=== PATIENT | male | born 1960 | race Caucasian/White ===

== ENCOUNTER 2021-10-15 21:13 | Observation (INO) | payer MEDICARE, MEDICAID, SELFPAY ==
[2021-10-15] VITALS (8 sets, daily range): BP systolic 115–135; BP diastolic 75–86; PULSE 62–69; RESP 13–28; TEMP 36.7; O2SAT 94–98; BMI 26.4; BMI 27.6
--- NOTE | 2021-10-15 21:11 | ECG_ITS ---
APPROVED REPORT Exam: Resting ECG HR:69 bpm ECG Measurements Heart Rate 69 AXES DC 147 P 21 QRSd 137 QRS -49 QT 411 T -56 QTc 430 Conclusion SINUS RHYTHM RIGHT BUNDLE BRANCH BLOCK [120+ ms QRS DURATION, UPRIGHT V1, 40+ ms S IN I/aVL/V4/V5/V6] LEFT ANTERIOR FASCICULAR BLOCK [QRS AXIS <= -45, QR IN I, RS IN II] MODERATE VOLTAGE CRITERIA FOR LVH, CONSIDER NORMAL VARIANT [MEETS CRITERIA IN ONE OF: R(aVL), S(V1), R(V5), R(V5/V6)+S(V1)] MODERATE T-WAVE ABNORMALITY, CONSIDER LATERAL ISCHEMIA [-0.1+ mV T-WAVE IN I/aVL/V5/V6] MODERATE T-WAVE ABNORMALITY, CONSIDER INFERIOR ISCHEMIA [-0.1+ mV T-WAVE IN II/aVF] ABNORMAL ECG UNCONFIRMED REPORT Electronically signed by : Ever Romero MD 10/18/2021 15:28:45
--- NOTE | 2021-10-15 21:20 | XR_ITS ---
PROCEDURE INFORMATION: Exam: XR Chest Exam date and time: 10/15/2021 9:39 PM Age: 61 years old Clinical indication: Sternal or substernal pain; Additional info: Chest pain TECHNIQUE: Imaging protocol: Radiologic exam of the chest. Views: 1 view. COMPARISON: No relevant prior studies available. FINDINGS: Lungs: Unremarkable. No consolidation. Pleural spaces: Unremarkable. No pleural effusion. No pneumothorax. Heart/Mediastinum: Unremarkable. No cardiomegaly. Bones/joints: Unremarkable. IMPRESSION: No acute findings.
--- NOTE | 2021-10-15 21:22 | PC.NURSE ---
Pt complains of pain. RN notified.
--- NOTE | 2021-10-15 21:27 | PC.NURSE ---
RAD at for CXR
[2021-10-15 21:28] LABS: Basophils # 0.1 K/mm3 (0-0.2); Basophils % 1.1 % (0.1-2.0); Eosinophils # 0.3 K/mm3 (0.0-0.4); Eosinophils % 2.4 % (0.1-12.0); Hematocrit 40.6 % (42.0-52.0); Hemoglobin 13.4 g/dL (14.1-18.0); Lymphocytes # 4.1 K/mm3 (0.7-4.5); Lymphocytes % 37.4 % (10-50); Mean Corpuscular Hemoglobin 31.8 pg (27.0-31.2); Mean Corpuscular Volume 96.1 fl (80-94); Mean Platelet Volume 8.8 fl (7.4-10.4); Monocytes # 0.6 K/mm3 (0.1-1.0); Monocytes % 5.5 % (1.7-9.3); Neutrophils # 5.8 K/mm3 (1.8-7.8); Neutrophils % 53.6 % (37.0-80.0); Platelet Count 197 K/mm3 (142-424); Red Blood Count 4.22 M/mm3 (4.60-6.20); White Blood Count 10.8 K/mm3 (4.8-10.8)
[2021-10-15 21:41] LABS: Alanine Aminotransferase 51 U/L (12-78); Albumin Level 3.9 g/dl (3.5-5.0); Alkaline Phosphatase 127 U/L (38-126); Anion Gap 11.4 mEq/L (5-15); Aspartate Amino Transferase 45 U/L (17-59); Blood Urea Nitrogen 15 mg/dl (9-20); Calcium 8.6 mg/dl (8.4-10.2); Carbon Dioxide 28 mmol/L (22.0-30.0); Chloride 105 mmol/L (98-107); Creatinine Clearance Estimated 95 mL/min (50-200); Estimated Glomerular Filt Rate 114 ml/min (>60); GFR (African American) 138 ML/MIN (>60); Glucose 180 mg/dl (74-100); Potassium 3.4 mmoL/L (3.5-5.1); Sodium 141 mmol/L (136-145); Total Protein,Serum 6.3 g/dl (6.3-8.2)
--- NOTE | 2021-10-15 21:45 | PC.NURSE ---
at speaking with pt about POC
--- NOTE | 2021-10-15 21:49 | HMH.EDARPALP ---
Discharge Plan Disposition Chief Complaint: Arrhythmia/Palpitations Referrals Follow up/Referrals: Mila Lange [Primary Care Provider] - See instructions Clinical Impressions Clinical Impression: Chest pain due to coronary artery disease, RBBB (right bundle branch block with left anterior fascicular block), Tobacco use Discharge ED Provider: Gerardo Mejia Arrhythmia/Palpitations HPI General Chief Complaint: Arrhythmia/Palpitations Stated Complaint: Rapid heart beat Time Seen by Provider: 10/15/21 21:49 Mode of Arrival: Wheelchair Source of Information: Patient, Significant Other and Medical Record Limitations: No Limitations History of Present Illness HPI narrative: pt presents with ant chest pain last pm and today with hx of cad with stents in august 28 and reports has been admitted x 3 since in [place] - pt has been compliant with meds - does use tob - reports has arrhythmia MD complaint: palpitations Onset (ago): day(s) Duration: intermittent Severity: similar to previous episodes Context: occurred during rest Associated symptoms: chest pain Related Data Allergies Allergy/AdvReac Type Severity Reaction Status Date / Time No Known Allergies Allergy Unverified 01/25/17 15:25 PFSH PFSH Social History Smoking Status: Current every day smoker alcohol intake: never current occupational status: previously employed Travel in the last 8 weeks: None ROS Obtained: Yes All systems reviewed & no additional complaints except as documented Constitutional Constitutional: Denies fever(s) and Denies headache(s) Eyes Eyes: Denies eye discharge ENT Ears, Nose, Mouth, and Throat: Denies facial pain and Denies headache(s) Cardiovascular Cardiovascular: Reports chest pain and Reports dyspnea Respiratory Respiratory: Denies cough and Reports dyspnea Musculoskeletal Musculoskeletal: Denies back pain Neurologic Neurologic: Denies behavioral changes and Denies headache(s) Physical Exam General General appearance: alert Head Head exam: normocephalic Eye Eye exam: Present PERRL and EOMI; Absent scleral icterus ENT ENT exam: Present mucous membranes moist Neck Neck exam: Present trachea midline Chest Chest inspection: Absent tenderness Respiratory Respiratory exam: Present normal lung sounds bilaterally Cardiovascular Cardiovascular exam: Present regular rate and systolic murmur; Absent rubs Abdominal Exam Abdominal exam: Present soft Extremities Exam Extremities exam: Absent full ROM Neurological Exam Neurological exam: Present alert, oriented X3 and CN II-XII intact Psychiatric Psychiatric exam: Present normal affect Skin Skin exam: Absent rash Medical Decision Making Medical Records Medical records reviewed: Yes I reviewed the patient's medical records. Moshe Inquiry Pt receiving controlled substance: No Vital Signs: 10/15/21 21:13 10/15/21 21:45 10/15/21 22:15 Temperature 98.1 F Temperature Source Oral Pulse Rate 69 64 Pulse Rate [Right Radial] 68 Respiratory Rate 16 17 Blood Pressure 115/75 120/78 Blood Pressure [Right Arm] 134/86 Blood Pressure Mean [Right Arm] 102 Blood Pressure Source Automatic Cuff Automatic Cuff Blood Pressure Source [Right Arm] Automatic Cuff Blood Pressure Position Sitting Sitting Blood Pressure Position [Right Arm] Sitting 02 Sat by Pulse Oximetry 98 96 96 Oxygen Delivery Method Room Air Room Air Room Air 10/15/21 22:45 Temperature Temperature Source Pulse Rate 62 Pulse Rate [Right Radial] Respiratory Rate Blood Pressure 135/81 Blood Pressure [Right Arm] Blood Pressure Mean [Right Arm] Blood Pressure Source Automatic Cuff Blood Pressure Source [Right Arm] Blood Pressure Position Sitting Blood Pressure Position [Right Arm] 02 Sat by Pulse Oximetry 95 Oxygen Delivery Method Room Air Lab Data Lab results reviewed: Yes I reviewed the patient's lab results. Lab Results 10/15/21 21:17: WBC 10.8, RBC 4.22 L, Hgb 13.4 L,
[2021-10-15 21:53] LABS: Bilirubin,Total < 0.1 mg/dl (0.2-1.3)
[2021-10-15 21:54] LABS: Troponin I < 0.01 ng/ml (0.00-0.034)
--- NOTE | 2021-10-15 22:04 | CT_ITS ---
PROCEDURE INFORMATION: Exam: CTA Chest With Contrast Exam date and time: 10/15/2021 10:07 PM Age: 61 years old Clinical indication: Sternal or substernal pain; Prior surgery; Additional info: Chest pain TECHNIQUE: Imaging protocol: Computed tomographic angiography of the chest with contrast. 3D rendering (Not supervised by radiologist): MIP and/or 3D reconstructed images were created by the technologist. Radiation optimization: All CT scans at this facility use at least one of these dose optimization techniques: automated exposure control; mA and/or kV adjustment per patient size (includes targeted exams where dose is matched to clinical indication); or iterative reconstruction. Contrast material: ISOVUE; Contrast volume: 70 ml; Contrast route: INTRAVENOUS (IV); COMPARISON: CR XR CHEST PORTABLE 10/15/2021 9:39 PM FINDINGS: Tubes, catheters and devices: Incompletely visualized spinal stimulator device. Pulmonary arteries: Limited study due to respiratory motion artifact without definite evidence of pulmonary embolism. Aorta: No aortic aneurysm. Lungs: Nonspecific bibasilar opacities, favoring atelectasis or pneumonia. Several scattered areas of probable pulmonary scarring or atelectasis. 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 Several calcified pulmonary granulomas. Pleural spaces: No pneumothorax. No pleural effusion. Heart: Cardiomegaly. Coronary artery disease. No pericardial effusion. Lymph nodes: No enlarged lymph nodes. Adrenal glands: Bilateral adrenal nodularities. 0.8 cm right adrenal probable myelolipoma. Bones/joints: No acute fracture. Soft tissues: Small probable sebaceous cyst in the posterior chest wall. IMPRESSION: 1. Limited study due to respiratory motion artifact without definite evidence of pulmonary embolism. 2. Nonspecific bibasilar opacities, favoring atelectasis or pneumonia. Recommend imaging follow-up until complete resolution. 3. 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 Recommend pulmonary consult. 4. Cardiomegaly. 5. Coronary artery disease. COMMENTS: Consistent with the [employer]'s Incidental Findings Committee white paper (J Am Silverio Radiol 2017): Any incidental adrenal lesion less than 1 cm is likely benign. No follow-up imaging is recommended for these lesions per consensus recommendations based on imaging criteria. Further lab evaluation could be pursued if warranted based on clinical findings.
--- NOTE | 2021-10-15 22:10 | PC.NURSE ---
Spoke with Moriah at [facility] to have records faxed from recent admission
--- NOTE | 2021-10-15 22:41 | PC.NURSE ---
Dr. Botello pagejett
--- NOTE | 2021-10-15 22:44 | PC.NURSE ---
Jackie speaking to Rosmery at this time
--- NOTE | 2021-10-15 23:08 | PC.NURSE ---
Spoke with Moriah at [facility] again. Advised she would try to fax the records again.
[2021-10-15 23:14] LABS: NT Pro Brain Natriuretic Pep. 316 pg/mL (0-125)
--- NOTE | 2021-10-15 23:44 | PC.NURSE ---
Received pt records from [facility]
[2021-10-15 23:57] LABS: Coronavirus 19, PCR Not Detected (NotDetected); Influenza A, PCR Not Detected (NotDetected); Influenza B, PCR Not Detected (NotDetected)
[2021-10-16] VITALS (23 sets, daily range): BP systolic 102–138; BP diastolic 50–88; PULSE 50–68; RESP 14–20; TEMP 36.6–36.7; O2SAT 91–97; BMI 27.6
--- NOTE | 2021-10-16 | IR_ITS ---
APPROVED REPORT Patient Location: Inpatient PROCEDURES Left heart catheterization Left ventriculogram Selective coronary angiogram Drug-eluting stent deployment to the ostial proximal dominant right coronary INDICATION Coronary artery disease, Unstable angina Informed consent was obtained prior to the procedure. COMPLICATIONS none Estimated Blood Loss: less than 10 ml TECHNIQUE One percent lidocaine used to anesthetize the right anterior aspect of the wrist. The right radial artery was accessed via the Seldinger technique. A 6 Tajik sheath was placed in the right radial artery. 2.5 mg of verapamil, 800 mcg of nitroglycerin, 1mg Lidocaine and 5000 U Heparin were given through the arterial sheath. The papa catheter was also used to perform left heart catheterization, left ventriculogram and selective coronary angiogram. At the end of the diagnostic angiogram therapeutic heparin was administered giving a therapeutic ACT and the guide catheter was placed in the right coronary artery followed by a Choice PT extra-support wire. A 4 mm x 18 mm resolute Bayron stent was placed in the ostial proximal segment at 28 edna reducing the stenosis to 0%. VANESSA-3 flow was present before and after the procedure at the end the procedure the apparatus was removed the sheath was removed and hemostasis was achieved using TR banding patient was transferred to the postop putting in stable condition ANGIOGRAPHIC RESULTS The left main artery Normal The left anterior descending artery Has proximal 10 to 20% luminal irregularities with mid vessel 10% luminal irregularities followed by additional 30% stenoses. The distal LAD has an eccentric 70% stenosis in a very distal 60% stenosis. The stent in the proximal LAD is widely patent. The second diagonal artery has a mid vessel 90% stenosis however is less than 1.5 mm in diameter The circumflex artery Is a nondominant vessel and gives rise to 2 obtuse marginal arteries. First obtuse marginal artery has proximal 40% stenoses while the second obtuse marginal artery which is smaller has a proximal 40 to 50% stenosis. The right coronary artery Is a dominant vessel and has an ostial 70 to 80% stenosis followed by additional 60% stenosis. The vessel has diffuse vascular ectasia with an eccentric 30% stenosis. Distally the posterior lateral branch has a mid vessel 70% stenosis The [place] ventriculogram reveals Preserved at 60% The left ventricular end-diastolic pressure 20 mmHg IMPRESSION Coronary artery disease as described above Severe disease in the ostial dominant right coronary with successful stenting reducing the stenosis to 0% Persistent disease in the second diagonal artery and distal LAD both of which are not amenable to percutaneous intervention Moderate disease in the circumflex artery as described above best treated medically Preserved ejection fraction at 60% Elevated LVEDP PLAN 1. Dual antiplatelet therapy 2. Risk factor modification 3. Cardiac rehabilitation 4. Avoidance of tobacco products 5. LDL less than 55 to be achieved with high intensity statin Electronically signed by : Efrem Ewing MD 10/16/2021 18:06:29
[2021-10-16 00:10] LABS: Bilirubin,Indirect 0.1 mg/dL (0.0-0.9)
--- NOTE | 2021-10-16 00:33 | PC.NURSE ---
Report given to BEAU Schaefer at this time
--- NOTE | 2021-10-16 00:49 | PC.NURSE ---
PT ARRIVED VIA WHEELCHAIR AT THIS TIME
--- NOTE | 2021-10-16 05:41 | PC.NURSE ---
Pt arrived to floor with c/o discomfort to (R) side of chest describing it as sharp and dull pain. VS have been stable. Pt is sinus with BBB on telemetry. Remains on RA. Scattered rhonchi noted to lungs. Diminished on the right. He has since slept well. Ambulated to BR with standby assist. Call light within reach. Safety measures in place.
[2021-10-16 06:29] LABS: Basophils # 0.1 K/mm3 (0-0.2); Basophils % 1.2 % (0.1-2.0); Eosinophils # 0.3 K/mm3 (0.0-0.4); Eosinophils % 2.8 % (0.1-12.0); Hematocrit 36.4 % (42.0-52.0); Hemoglobin 12.3 g/dL (14.1-18.0); Lymphocytes % 51.9 % (10-50); Mean Corpuscular HGB Conc 33.7 g/dL (31.8-35.4); Mean Corpuscular Hemoglobin 32.1 pg (27.0-31.2); Mean Corpuscular Volume 95.3 fl (80-94); Mean Platelet Volume 8.8 fl (7.4-10.4); Monocytes # 0.5 K/mm3 (0.1-1.0); Neutrophils # 3.8 K/mm3 (1.8-7.8); Neutrophils % 38.9 % (37.0-80.0); Platelet Count 168 K/mm3 (142-424); Red Blood Count 3.82 M/mm3 (4.60-6.20); Red Cell Distribution Width 14.2 % (11.5-17.5); White Blood Count 9.6 K/mm3 (4.8-10.8)
[2021-10-16 06:34] LABS: Anion Gap 6.1 mEq/L (5-15); Blood Urea Nitrogen 11 mg/dl (9-20); Calcium 7.9 mg/dl (8.4-10.2); Carbon Dioxide 29 mmol/L (22.0-30.0); Chloride 107 mmol/L (98-107); Creatinine Clearance Estimated 99 mL/min (50-200); Estimated Glomerular Filt Rate 136 ml/min (>60); GFR (African American) 165 ML/MIN (>60); Glucose 94 mg/dl (74-100); Magnesium 1.1 mg/dl (1.6-2.3); Potassium 3.1 mmoL/L (3.5-5.1); Sodium 139 mmol/L (136-145)
[2021-10-16 06:39] LABS: POC Glucose,Bedside 100 (70-110)
[2021-10-16 06:40] LABS: MANUAL DIFFERENTIAL MANUAL DIFFERENTIAL (MANUAL DIFF)
[2021-10-16 07:17] LABS: Lymphocytes % 54 % (10-50); Macrocytosis 1+; Monocytes % 6 % (2-9); Neutrophils % 40 % (42-76); Platelet Estimate Normal; Total Cells Counted 100
--- NOTE | 2021-10-16 07:50 | EXP.PHA.VTE ---
[facility] Pharmacy VTE Monitoring Patient Demographics Admission date: 10/15/21 Report Date: 10/16/21 Time: 07:50 Patient Allergies No Known Allergies Allergy (Unverified 01/25/17 15:25) Height: 1.83 m Weight: 92.669 kg Current Active Problems Chest pain due to coronary artery disease (Acute) RBBB (right bundle branch block with left anterior fascicular block) (Acute) Tobacco use (Acute) VTE Risk Labs: VTE Related Lab Results Hgb 12.3 g/dL (14.1-18.0) L 10/16/21 05:53 Hct 36.4 % (42.0-52.0) L 10/16/21 05:53 Plt Count 168 K/mm3 (142-424) 10/16/21 05:53 BUN 11 mg/dl (9-20) D 10/16/21 05:53 Creatinine 0.60 mg/dl (0.66-1.25) L 10/16/21 05:53 Estimated Creat Clear 99 mL/min (50-200) 10/16/21 05:53 VTE Risk Level: Moderate Risk Prophylaxis VTE Prophylaxis Ordered?: Yes Types of VTE Prophylaxis: TEDS Knee High Location of Applied Device: Bilateral Lower Extremeties
[2021-10-16 08:43] LABS: Troponin I < 0.01 ng/ml (0.00-0.034)
--- NOTE | 2021-10-16 09:07 | CA_ITS ---
APPROVED REPORT EXAM: Comprehensive 2D, Doppler, and color-flow Echocardiogram Corporate Quality Manager: Louise Maciel RDCS Ht: 6 ft 0 in Wt: 204lbs BSA: 2.15 BP: 135/81 mmHg Indications: F/U PERICARDIAL EFF Conclusion 1. Limited echocardiogram was obtained for follow-up on pericardial effusion. 2. Normal left ventricular size and function. 3. No significant pericardial effusion noted. Electronically signed by : Cj Moran MD 10/16/2021 10:40:42
--- NOTE | 2021-10-16 09:09 | EXP.CARD.CON ---
History of Present Illness History of Present Illness Consult date: 10/16/21 Requesting physician: Antelmo Botello Consult reason: chest pain Chief complaint: chest pain Additional Medical History:: 1. Coronary artery disease A. History of [place], 07/2021 with subsequent drug-eluting stent placement to LAD and additional stent to ramus after perforation. B. Hospital admission for pericardial effusion, [facility], [facility], moderate by echocardiogram with right heart cath showing no evidence of cardiac tamponade. Medical therapy recommended 2. Diabetes mellitus, treated for 5 years 3. Tobacco use, 50 years at least 1 pack/day 4. Abnormal EKG with right bundle branch block, Left anterior fascicular block with T wave abnormalities diffusely 5. Hypertension 6. Hyperlipidemia 7. History of atrial flutter/atrial fibrillation during 09/26/2021 hospitalization at [facility] in [facility] for which the patient was started on amiodarone therapy and briefly on Eliquis but this was discontinued due to pericardial effusion. History of present illness: 61-year-old white male with history as noted above presented to the emergency department for evaluation of acute worsening of chest pain for 2 days. Describes it as a right-sided sharp discomfort that last minutes but is frequent throughout the day. He does have radiation to the left arm but no significant association with exertional activities. Some dizziness associated with it but no syncopal episodes. Feel like something is wrong and they missed something. Admission EKG is sinus rhythm with right bundle branch block with nonspecific ST-T abnormalities. Troponins normal x2. Extensive record review from [facility] showed moderate pericardial effusion on echocardiogram. Right heart catheterization was performed with no indication of need for pericardiocentesis at that time. EKGs did show atrial fibrillation/flutter during that visit. [facility] Medical History (Updated 10/16/21 @ 10:05 by ZI Mark) Angina at rest Arrhythmia Atrial fibrillation and flutter Diabetes GERD (gastroesophageal reflux disease) Heart murmur History of heart attack History of left heart catheterization (LHC) History of pneumothorax Hyperlipidemia Hypertension Palpitations Pericardial effusion without cardiac tamponade Pericarditis PNA (pneumonia) Presence of stent in LAD coronary artery Surgical History Hx of heart artery stent Previous back surgery Family History Family history of stroke Family history of hypertension Family history of COPD (chronic obstructive pulmonary disease) Family history of myocardial infarction Lung cancer Family history of hyperlipidemia Social History Smoking Status: Current every day smoker alcohol intake: current current occupational status: previously employed and disabled Travel in the last 8 weeks: None Review of Systems Constitutional Constitutional: Denies headache(s) ENT Ears, Nose, Mouth, and Throat: Reports dizziness and Denies headache(s) *Cardiovascular Cardiovascular: Reports chest pain and Reports dyspnea *Respiratory Respiratory: Reports dyspnea *Neurologic Neurologic: Denies behavioral changes, Reports dizziness and Denies headache(s) Psychiatric Psychiatric: Denies behavioral changes Exam Data for Last 24 hours Vital signs and Labs for Last 24 Hours: Temp Pulse Resp BP Pulse Ox 97.9 F 58 L 20 116/73 93 L 10/16/21 08:00 10/16/21 08:00 10/16/21 08:00 10/16/21 08:00 10/16/21 08:00 Laboratory Results - last 24 hr 10/15/21 21:17: WBC 10.8, RBC 4.22 L, Hgb 13.4 L, Hct 40.6 L, MCV 96.1 H, MCH 31.8 H, MCHC 33.0, RDW 14.0, Plt Count 197, MPV 8.8, Neut % (Auto) 53.6, Lymph % (Auto) 37.4, [place] % (Auto) 5.5, Eos % (Auto) 2.
--- NOTE | 2021-10-16 09:26 | P.CONPHA_ITS ---
Pharmacy Intervention Comments: MEDICATION RECONCILIATION COMPLETED ON PATIENT USING EXTERNAL FILL HISTORY FROM PHARMACY AND LIST FROM [facility]. -CORTNEY SIMON PHARMD
--- NOTE | 2021-10-16 09:26 | HMH.PHAINT1 ---
Pharmacy Intervention Comments: MEDICATION RECONCILIATION COMPLETED ON PATIENT USING EXTERNAL FILL HISTORY FROM PHARMACY AND LIST FROM [facility]. -CORTNEY SIMON PHARMD
--- NOTE | 2021-10-16 09:41 | EXP.PULM.CON ---
History of Present Illness History of present illness: Mr. Carranza is a 61-year-old male current smoker greater than [id number] smoking he carries a diagnosis COPD, currently using inhalers presented to the hospital complaining of atypical chest pain followed by CT that showed cystic lung disease and pulmonary was called for further evaluation. Exertional dyspnea,chronic stable with no recent worsening but denies any cough or productive phlegm. Presented with chest pain. Cardiology following. [facility] Medical History (Updated 10/16/21 @ 14:06 by Christian Chen MD) Angina at rest Arrhythmia Atrial fibrillation and flutter Cystic lung, congenital Diabetes GERD (gastroesophageal reflux disease) Heart murmur History of heart attack History of left heart catheterization (LHC) History of pneumothorax Hyperlipidemia Hypertension Palpitations Pericardial effusion without cardiac tamponade Pericarditis PNA (pneumonia) Presence of stent in LAD coronary artery Surgical History Hx of heart artery stent Previous back surgery Family History Family history of stroke Family history of hypertension Family history of COPD (chronic obstructive pulmonary disease) Family history of myocardial infarction Lung cancer Family history of hyperlipidemia Social History Smoking Status: Current every day smoker alcohol intake: current current occupational status: previously employed and disabled Travel in the last 8 weeks: None Review of Systems Constitutional Constitutional: Denies headache(s) Eyes Eyes: Denies eye discharge, Denies dry eyes, Denies irritation and Denies itchy eyes ENT Ears, Nose, Mouth, and Throat: Reports dizziness, Denies headache(s), Denies lip swelling and Denies throat swelling *Cardiovascular Cardiovascular: Reports chest pain, Reports dyspnea and Reports dyspnea on exertion *Respiratory Respiratory: Reports dyspnea and Reports dyspnea on exertion *Gastrointestinal Gastrointestinal: Denies abdominal pain, Denies belching and Denies cramping *Musculoskeletal Musculoskeletal: Reports back pain, Reports myalgias and Reports other (No small joint swelling or Pain) *Neurologic Neurologic: Denies behavioral changes, Reports dizziness and Denies headache(s) Psychiatric Psychiatric: Denies behavioral changes Endocrine Endocrine: Denies heat intolerance Hematologic/Lymphatic Hematologic/Lymphatic: Denies easy bleeding and Denies lymphadenopathy Allergic/Immunologic Allergic/Immunologic: Denies itchy eyes, Denies lip swelling and Denies throat swelling Pulmonology Exam Inpatient Vital signs and Labs for Last 24 Hours: Temp Pulse Resp BP Pulse Ox 97.9 F 58 L 20 116/73 93 L 10/16/21 08:00 10/16/21 08:00 10/16/21 08:00 10/16/21 08:00 10/16/21 08:00 Laboratory Results - last 24 hr 10/15/21 21:17: WBC 10.8, RBC 4.22 L, Hgb 13.4 L, Hct 40.6 L, MCV 96.1 H, MCH 31.8 H, MCHC 33.0, RDW 14.0, Plt Count 197, MPV 8.8, Neut % (Auto) 53.6, Lymph % (Auto) 37.4, [place] % (Auto) 5.5, Eos % (Auto) 2.4, Baso % (Auto) 1.1, Neut # (Auto) 5.8, Lymph # (Auto) 4.1, [place] # (Auto) 0.6, Eos # (Auto) 0.3, Baso # (Auto) 0.1 10/15/21 21:17: Sodium 141, Potassium 3.4 L, Chloride 105, Carbon Dioxide 28, Anion Gap 11.4, BUN 15, Creatinine 0.70, Estimated Creat Clear 95, Estimated GFR 114, Est GFR ( Amer) 138, Glucose 180 H, Calcium 8.6, Total Bilirubin < 0.1 L, Direct Bilirubin 0.0, Conjugated Bilirubin 0.0, Indirect Bilirubin 0.1, Unconjugated Bilirubin 0.0, AST 45, ALT 51, Alkaline Phosphatase 127 H, Troponin I < 0.01, Total Protein 6.3, Albumin 3.9 10/15/21 21:17: NT-Pro-B Natriuret Pep 316 H 10/15/21 23:50: SARS-CoV-2 (PCR) Not detected, Influenza A Untype (PCR) Not detected, Influenza Type B (PCR) Not detected 10/16/21 05:53: WBC 9.6, RBC 3.82 L, Hgb 12.3 L, Hct 36.4 L, MCV 95.3
--- NOTE | 2021-10-16 10:01 | EXP.HP ---
History of Present Illness *Admission Date: 10/15/21 *Reason for visit:: chest pain *History of present illness: 61-year-old white male with history as noted above presented to the emergency department for evaluation of acute worsening of chest pain for 2 days.? Describes it as a right-sided sharp discomfort that last minutes but is frequent throughout the day.? He does have radiation to the left arm but no significant association with exertional activities.? Some dizziness associated with it but no syncopal episodes.? Feel like something is wrong and they missed something. ? Admission EKG is sinus rhythm with right bundle branch block with nonspecific ST-T abnormalities.? Troponins normal x2. Extensive record review from [facility] showed moderate pericardial effusion on echocardiogram.? Right heart catheterization was performed with no indication of need for pericardiocentesis at that time.? EKGs did show atrial fibrillation/flutter during that visit. Additional Medical History:: 1.? Coronary artery disease A.? History of [place], 07/2021 with subsequent drug-eluting stent placement to LAD and additional stent to ramus after perforation. B.? Hospital admission for pericardial effusion, [facility], moderate by echocardiogram with right heart cath showing no evidence of cardiac tamponade.? Medical therapy recommended 2.? Diabetes mellitus, treated for 5 years 3.? Tobacco use, 50 years at least 1 pack/day 4.? Abnormal EKG with right bundle branch block, Left anterior fascicular block with T wave abnormalities diffusely 5.? Hypertension 6.? Hyperlipidemia 7.? History of atrial flutter/atrial fibrillation during 09/26/2021 hospitalization at [facility] in [facility] for which the patient was started on amiodarone therapy and briefly on Eliquis but this was discontinued due to pericardial effusion. (above as per [facility] - Cardiology) [facility] Medical History (Updated 10/16/21 @ 14:06 by Christian Chen MD) Angina at rest Arrhythmia Atrial fibrillation and flutter Cystic lung, congenital Diabetes GERD (gastroesophageal reflux disease) Heart murmur History of heart attack History of left heart catheterization (LHC) History of pneumothorax Hyperlipidemia Hypertension Palpitations Pericardial effusion without cardiac tamponade Pericarditis PNA (pneumonia) Presence of stent in LAD coronary artery Surgical History Hx of heart artery stent Previous back surgery Family History Family history of stroke Family history of hypertension Family history of COPD (chronic obstructive pulmonary disease) Family history of myocardial infarction Lung cancer Family history of hyperlipidemia Social History Smoking Status: Current every day smoker alcohol intake: current current occupational status: previously employed and disabled Travel in the last 8 weeks: None Review of Systems Constitutional Constitutional: Denies fever(s), Reports headache(s) and Denies weakness Eyes Eyes: Denies blurry vision and Denies diplopia ENT Ears, Nose, Mouth, and Throat: Reports dizziness, Reports headache(s), Denies nasal congestion and Denies sore throat *Cardiovascular Cardiovascular: Reports chest pain, Denies diaphoresis, Denies dyspnea, Reports lightheadedness, Reports palpitations and Reports radiating jaw, neck or arm pain *Respiratory Respiratory: Denies chest congestion and Denies dyspnea *Gastrointestinal Gastrointestinal: Denies diarrhea, Denies nausea and Denies vomiting *Genitourinary Genitourinary: Denies difficulty urinating and Denies dysuria *Musculoskeletal Musculoskeletal: Reports radiating pain into limb *Neurologic Neurologic: Denies behavioral changes, Reports dizziness, Reports headache(s) and Denies weakness Psychiatr
[2021-10-16 11:41] LABS: POC Glucose,Bedside 67 (70-110)
[2021-10-16 12:12] LABS: POC Glucose,Bedside 160 (70-110)
--- NOTE | 2021-10-16 14:24 | PC.NURSE ---
rounded on patient. patient resting in bed with eyes closed. call light with in reach
--- NOTE | 2021-10-16 14:54 | PC.NURSE ---
patient having complaints of pain. administered morphine per apr, tylenol also administered for headache with a small amount of water. removed old nitro patch from yesterday at 2200. pulled blinds shut. still waiting for cath.
[2021-10-16 16:43] LABS: POC Glucose,Bedside 108 (70-110)
--- NOTE | 2021-10-16 16:58 | PC.NURSE ---
PT RESTING IN BED. ALERT AND ORIENTED X4. VERY ILL APPEARING. MEDICATED PER MAR FOR CHEST DISCOMFORT THAT PT STATES A DULL PAIN THAT OCCASIONALLY RADIATES DOWN THE LEFT ARM. AT 1100 THIS SHIFT PT WAS COMPLAINING OF HEARTBURN THAT HE TYPICALLY HAS EVERYDAY BEFORE EATING. AT THIS TIME PT WAS REALLY DIAPHORETIC AND STATED HE FELT LIKE HE WAS GOING TO FAINT. VSS. NSR ON TELEMETRY. PT'S GLUCOSE WAS 67. NOTIFIED GILMA ALATORRE (ORDERED AMP D50 ONE TIME AND IV PROTONIX DAILY). ON REASSESSMENT PT STATED HEARTBURN WAS BETTER AND GLUCOSE WAS 160. PT IS WAITING FOR HEART CATH AT THIS TIME.
[2021-10-16 18:10] LABS: CATHL Activated Clotting Time 290 SEC (74-125)
[2021-10-17] VITALS (10 sets, daily range): BP systolic 119–147; BP diastolic 62–83; PULSE 40–63; RESP 16–22; TEMP 36.7–37.2; O2SAT 93–97; BMI 27.8
--- NOTE | 2021-10-17 05:20 | PC.NURSE ---
pt has rested well this shift. pt is a&ox4. no complaints of pain this shift. radial band was removed, telfa and tegaderm in place, no drainage noted at this time. CB in reach.
[2021-10-17 07:10] LABS: Basophils # 0.1 K/mm3 (0-0.2); Basophils % 1.2 % (0.1-2.0); Eosinophils # 0.3 K/mm3 (0.0-0.4); Eosinophils % 3.2 % (0.1-12.0); Hematocrit 40.5 % (42.0-52.0); Hemoglobin 13.5 g/dL (14.1-18.0); Lymphocytes # 3.5 K/mm3 (0.7-4.5); Lymphocytes % 33.3 % (10-50); Mean Corpuscular HGB Conc 33.3 g/dL (31.8-35.4); Mean Corpuscular Volume 96.2 fl (80-94); Mean Platelet Volume 8.5 fl (7.4-10.4); Monocytes # 0.6 K/mm3 (0.1-1.0); Monocytes % 5.9 % (1.7-9.3); Neutrophils # 5.9 K/mm3 (1.8-7.8); Neutrophils % 56.4 % (37.0-80.0); Platelet Count 170 K/mm3 (142-424); Red Blood Count 4.21 M/mm3 (4.60-6.20); White Blood Count 10.5 K/mm3 (4.8-10.8)
[2021-10-17 07:13] LABS: Anion Gap 3.7 mEq/L (5-15); Blood Urea Nitrogen 8 mg/dl (9-20); Calcium 8.3 mg/dl (8.4-10.2); Carbon Dioxide 29 mmol/L (22.0-30.0); Chloride 108 mmol/L (98-107); Creatinine Clearance Estimated 100 mL/min (50-200); Estimated Glomerular Filt Rate 136 ml/min (>60); GFR (African American) 165 ML/MIN (>60); Glucose 106 mg/dl (74-100); Potassium 3.7 mmoL/L (3.5-5.1); Sodium 137 mmol/L (136-145)
--- NOTE | 2021-10-17 10:16 | PC.NURSE ---
courtesy tech vidal: Pt is sleeping with call light within reach
--- NOTE | 2021-10-17 11:15 | EXP.PN ---
Subjective *Date: 10/17/21 *Time: 11:15 Interval history: He rested well last night. States he has had no further chest pain since his heart cath yesterday. Did not feel like eating breakfast this morning. Exam Data for Last 24 hours Vital signs and Labs for Last 24 Hours: Temp Pulse Resp BP Pulse Ox 98.7 F 52 L 16 121/72 94 L 10/17/21 08:00 10/17/21 08:00 10/17/21 08:00 10/17/21 08:00 10/17/21 08:00 Laboratory Results - last 24 hr 10/16/21 11:07: POC Glucose 67 L 10/16/21 12:05: POC Glucose 160 H 10/16/21 16:37: POC Glucose 108 10/16/21 17:50: Activated Clotting Time 290 H* 10/17/21 06:55: WBC 10.5, RBC 4.21 L, Hgb 13.5 L, Hct 40.5 L, MCV 96.2 H, MCH 32.0 H, MCHC 33.3, RDW 14.0, Plt Count 170, MPV 8.5, Neut % (Auto) 56.4, Lymph % (Auto) 33.3, Butts % (Auto) 5.9, Eos % (Auto) 3.2, Baso % (Auto) 1.2, Neut # (Auto) 5.9, Lymph # (Auto) 3.5, Butts # (Auto) 0.6, Eos # (Auto) 0.3, Baso # (Auto) 0.1 10/17/21 06:55: Sodium 137, Potassium 3.7, Chloride 108 H, Carbon Dioxide 29, Anion Gap 3.7 L, BUN 8 L D, Creatinine 0.60 L, Estimated Creat Clear 100, Estimated GFR 136, Est GFR ( Amer) 165, Glucose 106 H, Calcium 8.3 L I & O for Last 24 hours: Intake & Output 10/14/21 10/15/21 10/16/21 10/17/21 11:59 11:59 11:59 11:59 Intake Total 1502 / 1502 240 / 240 Output Total 300 / 500 2625 / 2625 Balance 1202 / 1002 -2385 / -2385 Weight 204 lb 4.485 oz 205 lb 8 oz Constitutional Comments: He appears in no distress. Lungs are clear to auscultation. Heart is regular. Extremities no edema. Assessment and Plan *Assessment and plan (1) Chest pain due to coronary artery disease: Status: Acute Category: Medical Code(s): I25.119 - Atherosclerotic heart disease of [place] coronary artery with unspecified angina pectoris (2) RBBB (right bundle branch block with left anterior fascicular block): Status: Acute Category: Medical Code(s): I45.2 - Bifascicular block (3) Abnormal chest CT: Status: Acute Category: Medical Code(s): R93.89 - Abnormal findings on diagnostic imaging of other specified body structures (4) Tobacco use: Status: Chronic Category: Social Hx Code(s): Z72.0 - Tobacco use (5) Pericardial effusion without cardiac tamponade: Status: Acute Category: Medical Code(s): I31.3 - Pericardial effusion (noninflammatory) (6) Presence of stent in LAD coronary artery: Status: Chronic Category: Medical Code(s): Z95.5 - Presence of coronary angioplasty implant and graft (7) Hypertension: Status: Chronic Category: Medical Code(s): I10 - Essential (primary) hypertension (8) Hyperlipidemia: Status: Chronic Category: Medical Code(s): E78.5 - Hyperlipidemia, unspecified (9) Diabetes: Status: Chronic Category: Medical Code(s): E11.9 - Type 2 diabetes mellitus without complications (10) Atrial fibrillation and flutter: Status: Chronic Category: Medical Code(s): I48.91 - Unspecified atrial fibrillation; I48.92 - Unspecified atrial flutter Assessment and plan all Dx Assessment and Plan All Dx:: Chest pain has resolved since having coronary stent placement yesterday. Await further cardiology recommendations. Pulmonary consultation and recommendations noted. Possibly discharge soon
[2021-10-17 11:24] LABS: POC Glucose,Bedside 78 (70-110)
[2021-10-17 16:15] LABS: POC Glucose,Bedside 110 (70-110)
--- NOTE | 2021-10-17 18:11 | PC.NURSE ---
Addendum entered by Marilin Paulino RN 10/17/21 18:13: Respiratory attempted to induce sputum culture but was unsuccessful. Original Note: No chest pain reported by patient. VS stable and patient remained on room air. gauze and tegaderm still intact with no complications noted. Patient stated he felt much better but was tired and rested for most of shift. Patient remained sinus jerald on monitor. No complaints noted.
[2021-10-18] VITALS: PULSE 50
[2021-10-18 04:00] VITALS: BP 121/53; PULSE 50; PULSE 54; RESP 20; TEMP 37.1; O2SAT 96
[2021-10-18 04:15] VITALS: BMI 27.0
--- NOTE | 2021-10-18 04:19 | PC.NURSE ---
pt has rested t/o the shift. no complaints of chest pain. dressing in place on cath site C/D/I. pt ambulated to and from bathroom with standby assistance. CB in reach .
[2021-10-18 05:49] LABS: POC Glucose,Bedside 83 (70-110)
[2021-10-18 08:00] VITALS: BP 130/73; PULSE 62; RESP 16; TEMP 36.4; O2SAT 97
--- NOTE | 2021-10-18 10:04 | HMH.PHACL ---
PHA Student Records Coordinator Discharge Med Skydiving Instructor: Tashi Martin JR has received discharge medication counseling on the following medications: ASPIRIN PLAVIX LISINOPRIL ATORVASTATIN METOPROLOL HELD AT THIS TIME DUE TO BRADYCARDIA. PATIENT VERBALIZED UNDERSTANDING AND HAD NO QUESTIONS AT THIS TIME. -CORTNEY SIMON, PHARMD
--- NOTE | 2021-10-18 11:13 | P.PN_ITS ---
Subjective *Date: 10/18/21 *Time: 11:13 Interval history: He remains free of chest pain. He remains mildly bradycardic but asymptomatic. Metoprolol has been held. He has been up and about the room tolerating activity well. Appetite is good. Denies shortness of breath. He is eager to go home. Exam Data for Last 24 hours Vital signs and Labs for Last 24 Hours: Temp Pulse Resp BP Pulse Ox 97.5 F L 62 16 130/73 97 10/18/21 08:00 10/18/21 08:00 10/18/21 08:00 10/18/21 08:00 10/18/21 08:00 Laboratory Results - last 24 hr 10/17/21 11:16: POC Glucose 78 10/17/21 16:05: POC Glucose 110 10/17/21 20:25: POC Glucose 83 I & O for Last 24 hours: Intake & Output 10/15/21 10/16/21 10/17/21 10/18/21 11:59 11:59 11:59 11:59 Intake Total 1502 / 1502 240 / 240 1060 / 1060 Output Total 300 / 500 3225 / 3225 3625 / 3625 Balance 1202 / 1002 -2985 / -2985 -2565 / -2565 Weight 204 lb 4.485 oz 205 lb 8 oz 199 lb 6 oz Constitutional Comments: Awake and alert. He appears in no distress. Chest with coarse breath sounds. No rales or wheezes. Heart is regular. Extremities no edema. Assessment and Plan *Assessment and plan (1) Chest pain due to coronary artery disease: Status: Acute Category: Medical Code(s): I25.119 - Atherosclerotic heart disease of [place] coronary artery with unspecified angina pectoris (2) RBBB (right bundle branch block with left anterior fascicular block): Status: Acute Category: Medical Code(s): I45.2 - Bifascicular block (3) Abnormal chest CT: Status: Acute Category: Medical Code(s): R93.89 - Abnormal findings on diagnostic imaging of other specified body structures (4) Tobacco use: Status: Chronic Category: Social Hx Code(s): Z72.0 - Tobacco use (5) Pericardial effusion without cardiac tamponade: Status: Acute Category: Medical Code(s): I31.3 - Pericardial effusion (noninflammatory) (6) Presence of stent in LAD coronary artery: Status: Chronic Category: Medical Code(s): Z95.5 - Presence of coronary angioplasty implant and graft (7) Hypertension: Status: Chronic Category: Medical Code(s): I10 - Essential (primary) hypertension (8) Hyperlipidemia: Status: Chronic Category: Medical Code(s): E78.5 - Hyperlipidemia, unspecified (9) Diabetes: Status: Chronic Category: Medical Code(s): E11.9 - Type 2 diabetes mellitus without complications (10) Atrial fibrillation and flutter: Status: Chronic Category: Medical Code(s): I48.91 - Unspecified atrial fibrillation; I48.92 - Unspecified atrial flutter Assessment and plan all Dx Assessment and Plan All Dx:: He is stable for discharge. Continue to hold metoprolol until he. He will see cardiology in a week and will also follow-up with pulmonology as an outpatient regarding his abnormal CT scanning. Advised to follow-up with his PCP next 1 to 2 weeks.
[2021-10-18 11:29] LABS: POC Glucose,Bedside 97 (70-110)
--- NOTE | 2021-10-18 23:25 | EXP.DC.SUM ---
General Admission date:: 10/16/21 Discharge date: 10/18/21 HPI HPI HPI: 61-year-old white male with history as noted above presented to the emergency department for evaluation of acute worsening of chest pain for 2 days.? Describes it as a right-sided sharp discomfort that last minutes but is frequent throughout the day.? He does have radiation to the left arm but no significant association with exertional activities.? Some dizziness associated with it but no syncopal episodes.? Feel like something is wrong and they missed something. ? Admission EKG is sinus rhythm with right bundle branch block with nonspecific ST-T abnormalities.? Troponins normal x2. Extensive record review from [facility] showed moderate pericardial effusion on echocardiogram.? Right heart catheterization was performed with no indication of need for pericardiocentesis at that time.? EKGs did show atrial fibrillation/flutter during that visit. Additional Medical History:: 1.? Coronary artery disease A.? History of [place], 07/2021 with subsequent drug-eluting stent placement to LAD and additional stent to ramus after perforation. B.? Hospital admission for pericardial effusion, [facility], moderate by echocardiogram with right heart cath showing no evidence of cardiac tamponade.? Medical therapy recommended 2.? Diabetes mellitus, treated for 5 years 3.? Tobacco use, 50 years at least 1 pack/day 4.? Abnormal EKG with right bundle branch block, Left anterior fascicular block with T wave abnormalities diffusely 5.? Hypertension 6.? Hyperlipidemia 7.? History of atrial flutter/atrial fibrillation during 09/26/2021 hospitalization at [facility] in [facility] for which the patient was started on amiodarone therapy and briefly on Eliquis but this was discontinued due to pericardial effusion. (above as per [facility] Cardiology) Hospital Course Hospital Course Hospital Course: The patient was seen by cardiology and his echo showed no significant pericardial effusion. They therefore wanted to proceed with a left heart cath. 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 He wanted to follow-up with the patient in his clinic with full PFTs and determine the need for lung biopsy/skin biopsy. The patient had a heart cath and received 1 stent. Dual antiplatelet therapy was recommended as well as cardiac rehab. The patient had no further chest pain after his heart cath. By 10/18/2021 he had remained free of chest pain. He was mildly bradycardic, but asymptomatic and his metoprolol was held. He had been up about the room tolerating activity and was eager to go home. He was stable to be discharged home and his metoprolol will be held until he sees cardiology in 1 week. He will also follow-up with pulmonology regarding his abnormal CT scan. Exam Data for Last 24 hours Vital signs and Labs for Last 24 Hours: Temp Pulse Resp BP Pulse Ox 97.5 F L 62 16 130/73 97 10/18/21 08:00 10/18/21 08:00 10/18/21 08:00 10/18/21 08:00 10/18/21 08:00 Laboratory Results - last 24 hr 10/17/21 20:25: POC Glucose 83 10/18/21 05:46: POC Glucose 97 I & O for Last 24 hours: Intake & Output 10/16/21 10/17/21 10/18/21 10/19/21 11:59 11:59 11:59 11:59 Intake Total 1502 / 1502 240 / 240 1060 / 1060 Output Total 300 / 500 3225 / 3225 3625 / 3625 Balance 1202 / 1002 -2985 / -2985 -2565 / -2565 Weight 204 lb 4.485 oz 205 lb 8 oz 199 lb 6 oz Narrative: Constitutional Constitutional: no acute distress *Routine HEENT Exam Head: Present normocephalic and atraumatic Eye: Present EOMI and PERRL ENT: Present mucous membranes moist *Routine Neck Exam Neck: Present supple and full ROM *Routine Respiratory Exam Respiratory: Present decreased breath sounds and crackles (bibasilar) *Routine Cardiovascular Exam Cardiovascular: Present RRR *Routine Abdominal Exam
--- NOTE | 2021-10-19 13:03 | CARE MANAGER ---
Attempted post-discharge phone interview, no answer.
--- NOTE | 2021-10-20 11:58 | CARE MANAGER ---
Attempted to contact patient related to hospital discharge x2. No VM option [facility]
== END 2021-10-18 12:35 | disposition home or self-care (01) ==
LOC: ER 22:50 → 2ND 23:53
PROVIDERS: Internal Medicine; Physician Assistant; Admitting Provider Family Medicine; Emergency Provider Emergency Medicine; PCP Family Medicine; Visit Provider Family Medicine
DX: I25.110 Atherosclerotic heart disease of native coronary artery with unstable angina pectoris (principal); I45.2 Bifascicular block; I31.3 Pericardial effusion (noninflammatory); Z95.5 Presence of coronary angioplasty implant and graft; I10 Essential (primary) hypertension; E78.5 Hyperlipidemia, unspecified; E11.9 Type 2 diabetes mellitus without complications; I48.0 Paroxysmal atrial fibrillation; I48.92 Unspecified atrial flutter; Z20.822 Contact with and (suspected) exposure to COVID-19; Z82.49 Family history of ischemic heart disease and other diseases of the circulatory system; F17.210 Nicotine dependence, cigarettes, uncomplicated; E87.6 Hypokalemia; Z79.899 Other long term (current) drug therapy
CPT/HCPCS: G0378; 36415; 71045; 71275; 80048; 80076; 82962; 83735; 83880; 84484; 85007; 85025; 85347; 92928; 93005; 93308; 93458; 99152; 99285; C1725; C1760; C1769; C1876; C9600; C9803; J1644; J2405; Q9967; U0003; U0005

== ENCOUNTER 2021-10-26 13:36 | Emergency (ER) | payer MEDICARE, MEDICAID, SELFPAY ==
[2021-10-26 13:37] VITALS: BP 149/96; PULSE 114; RESP 15; TEMP 36.7; O2SAT 96; BMI 26.4
--- NOTE | 2021-10-26 13:51 | XR_ITS ---
FINAL REPORT CLINICAL HISTORY: dog bite FINDINGS: 2 views of the left forearm were obtained. There is no acute fracture or dislocation. The joint spaces are intact. There is a well corticated os ossific density distal to the ulna. There is posterior forearm soft tissue swelling. IMPRESSION: No acute fracture or foreign body. Reviewed, Interpreted and Dictated by Jeison Brooks MD Transcribed by John Purdy Authenticated and [facility]
--- NOTE | 2021-10-26 13:53 | HMH.EDANIB ---
Discharge Plan Disposition Patient Disposition: Home, Self-Care Condition: Good Prescriptions Prescriptions: New amoxicillin-pot clavulanate 875-125 mg tablet 1 tab PO BID Qty: 20 0RF No Action amiodarone 200 mg tablet 200 mg PO DAILY lisinopril 20 mg tablet 20 mg PO DAILY amlodipine 5 mg tablet 5 mg PO DAILY ropinirole 0.5 mg tablet 0.5 mg PO HS fluticasone propionate 50 mcg/actuation spray,suspension 2 spray INTRANASAL BID colchicine 0.6 mg tablet 0.6 mg PO BID nitroglycerin 0.4 mg Tablet, Sublingual 0.4 mg SUBLINGUAL Q5MINP PRN (Reason: Chest Pain) Rx Instructions: do not exceed 3 doses per episode glipizide 10 mg Tablet 10 mg PO DAILY atorvastatin 80 mg tablet 80 mg PO HS clopidogrel 75 mg tablet 75 mg PO DAILY omeprazole 40 mg Capsule,Delayed Release(Dr/Ec) 40 mg PO DAILY sertraline 50 mg tablet 50 mg PO HS albuterol sulfate 90 mcg/actuation HFA aerosol inhaler 2 puff INHALATION Q4-6H PRN (Reason: Shortness Of Breath) potassium chloride 20 mEq Tablet,Er Particles/Crystals 20 meq PO DAILY Qty: 30 0RF Referrals Follow up/Referrals: Mila Lange [Primary Care Provider] - See instructions Clinical Impressions Clinical Impression: Dog bite of arm Instructions Patient Instructions: Animal Bites, Amoxicillin and Clavulanic Acid Print Language Print Language: Kyrgyz Discharge ED Provider: Reginald Vega Animal Bite HPI General Chief Complaint: Animal Bite Stated Complaint: swelling on L arm, dog bite Time Seen by Provider: 10/26/21 13:53 Mode of Arrival: Ambulatory Source of Information: Patient Limitations: No Limitations Description of Symptoms (Recalled from ER Triage Doc. by RN): Pt presents with dog bite to left forearm. History of Present Illness HPI narrative: 61-year-old male with past medical history of diabetes, presents status post dog bite of dog that was not his own that occurred approximately 1130 this morning which was about 2.5 hours ago. He states his tetanus is likely out of date. Dog vaccination status was reportedly up-to-date, and dog was seized by police and currently in quarantine and being monitored. Thus he declines rabies series. Bites were sustained to the right lower abdomen, superficially, does not appear to have broken the skin, and left forearm which is the area of primary pain with mild swelling and small area where the skin was punctured. He denies any numbness, tingling or weakness of the upper extremity distal to the wound. Related Data Home Medications Medication Instructions Recorded Confirmed albuterol sulfate 90 mcg/actuation 2 puff inhalation Q4-6H PRN 10/15/21 10/15/21 aerosol inhaler Shortness Of Breath amiodarone 200 mg tablet 200 mg PO DAILY Heart Rate 10/15/21 10/15/21 amlodipine 5 mg tablet 5 mg PO DAILY High blood pressure 10/15/21 10/15/21 atorvastatin 80 mg tablet 80 mg PO HS High cholesterol 10/15/21 10/15/21 clopidogrel 75 mg tablet 75 mg PO DAILY PLATELET INHIBITOR 10/15/21 10/15/21 colchicine 0.6 mg tablet 0.6 mg PO BID GOUT 10/15/21 10/16/21 fluticasone propionate 50 2 spray intranasal BID Allergy 10/15/21 10/15/21 mcg/actuation nasal symptoms spray,suspension glipizide 10 mg tablet 10 mg PO DAILY Diabetes 10/15/21 10/15/21 lisinopril 20 mg tablet 20 mg PO DAILY High blood pressure 10/15/21 10/15/21 nitroglycerin 0.4 mg sublingual 0.4 mg sublingual Q5MINP PRN Chest 10/15/21 10/16/21 tablet Pain omeprazole 40 mg capsule,delayed 40 mg PO DAILY GERD 10/15/21 10/15/21 release ropinirole 0.5 mg tablet 0.5 mg PO HS Restless legs 10/15/21 10/15/21 sertraline 50 mg tablet 50 mg PO HS Anxiety 10/15/21 10/15/21 Previous Rx's Medication Instructions Recorded potassium chloride 20 mEq 20 meq PO DAILY #30 tabs 10/18/21 tablet,extended release(part/cryst) amoxicillin 875 mg-potassium 1 tab PO BID #20 tabs 10/26/21 clavulanate 125 mg
[2021-10-26 14:01] VITALS: BP 147/101; PULSE 114; RESP 20; O2SAT 95
[2021-10-26 14:30] VITALS: BP 160/108; PULSE 114; RESP 20; O2SAT 95
[2021-10-26 15:33] VITALS: BP 125/85; PULSE 82; RESP 18; TEMP 36.7; O2SAT 91
== END 2021-10-26 15:33 | disposition home or self-care (01) ==
PROVIDERS: Emergency Provider Emergency Medicine; PCP Family Medicine
DX: S51.851A Open bite of right forearm, initial encounter (principal); S30.871A Other superficial bite of abdominal wall, initial encounter; R00.2 Palpitations; R10.31 Right lower quadrant pain; R06.02 Shortness of breath; I10 Essential (primary) hypertension; I25.119 Atherosclerotic heart disease of native coronary artery with unspecified angina pectoris; I49.9 Cardiac arrhythmia, unspecified; K21.9 Gastro-esophageal reflux disease without esophagitis; R01.1 Cardiac murmur, unspecified; I48.91 Unspecified atrial fibrillation; I48.92 Unspecified atrial flutter; I25.2 Old myocardial infarction; I31.9 Disease of pericardium, unspecified; I45.10 Unspecified right bundle-branch block; E78.5 Hyperlipidemia, unspecified; E11.9 Type 2 diabetes mellitus without complications; J90 Pleural effusion, not elsewhere classified; J98.4 Other disorders of lung; F17.210 Nicotine dependence, cigarettes, uncomplicated; Z79.02 Long term (current) use of antithrombotics/antiplatelets; Z79.51 Long term (current) use of inhaled steroids; Z79.899 Other long term (current) drug therapy; Z95.5 Presence of coronary angioplasty implant and graft; Z82.49 Family history of ischemic heart disease and other diseases of the circulatory system; Z82.5 Family history of asthma and other chronic lower respiratory diseases; Z83.438 Family history of other disorder of lipoprotein metabolism and other lipidemia; W54.0XXA Bitten by dog, initial encounter
CPT/HCPCS: 73090; 90471; 90715; 99284

== ENCOUNTER 2022-04-26 13:58 | Emergency (ER) | payer MEDICARE, MEDICAID, SELFPAY ==
[2022-04-26] VITALS (7 sets, daily range): BP systolic 114–170; BP diastolic 80–119; PULSE 69–79; RESP 16–22; TEMP 36.7–36.8; O2SAT 95–98; BMI 27.1
--- NOTE | 2022-04-26 13:58 | ECG_ITS ---
APPROVED REPORT Exam: Resting ECG HR:77 bpm ECG Measurements Heart Rate 77 AXES SD 155 P 22 QRSd 129 QRS -72 QT 419 T 10 QTc 451 Conclusion SINUS RHYTHM WITH OCCASIONAL SUPRAVENTRICULAR PREMATURE COMPLEXES RIGHT BUNDLE BRANCH BLOCK [120+ ms QRS DURATION, UPRIGHT V1, 40+ ms S IN I/aVL/V4/V5/V6] LEFT ANTERIOR FASCICULAR BLOCK [QRS AXIS <= -45, QR IN I, RS IN II] MINIMAL VOLTAGE CRITERIA FOR LVH, CONSIDER NORMAL VARIANT [MEETS CRITERIA IN ONE OF: R(aVL), S(V1), R(V5), R(V5/V6)+S(V1)] POSSIBLE SEPTAL MYOCARDIAL INFARCTION , PROBABLY OLD [30 ms Q WAVE IN V1/V2] ABNORMAL ECG UNCONFIRMED REPORT Electronically signed by : Ever Romero MD 04/26/2022 17:29:37
--- NOTE | 2022-04-26 14:05 | XR_ITS ---
FINAL REPORT TECHNIQUE: Single view chest CLINICAL HISTORY: Midsternal chest pain COMPARISON: 10/16/2021 FINDINGS: A single view of the chest was obtained. The heart and mediastinum are within normal limits. The lungs are clear. There is no pneumothorax. Osseous structures are unremarkable. IMPRESSION: No acute cardiopulmonary process. Reviewed, Interpreted and Dictated by Jeison Brooks MD Transcribed by Louise Carreno Authenticated and . [facility]
[2022-04-26 14:13] LABS: Basophils # 0.2 K/mm3 (0-0.2); Basophils % 1.6 % (0.1-2.0); Eosinophils # 0.2 K/mm3 (0.0-0.4); Eosinophils % 2.1 % (0.1-12.0); Hematocrit 50.1 % (42.0-52.0); Hemoglobin 16.8 g/dL (14.1-18.0); Lymphocytes # 4.7 K/mm3 (0.7-4.5); Lymphocytes % 45.3 % (10-50); Mean Corpuscular HGB Conc 33.5 g/dL (31.8-35.4); Mean Corpuscular Hemoglobin 31.4 pg (27.0-31.2); Mean Corpuscular Volume 93.6 fl (80-94); Mean Platelet Volume 8.5 fl (7.4-10.4); Monocytes # 0.6 K/mm3 (0.1-1.0); Monocytes % 5.4 % (1.7-9.3); Neutrophils # 4.7 K/mm3 (1.8-7.8); Neutrophils % 45.7 % (37.0-80.0); Platelet Count 271 K/mm3 (142-424); Red Blood Count 5.35 M/mm3 (4.60-6.20); Red Cell Distribution Width 13.8 % (11.5-17.5); White Blood Count 10.4 K/mm3 (4.8-10.8)
--- NOTE | 2022-04-26 14:16 | PC.NURSE ---
DR BETH AT BEDSIDE
--- NOTE | 2022-04-26 14:23 | PC.NURSE ---
XR AT BEDSIDE
[2022-04-26 14:31] LABS: Alanine Aminotransferase 49 U/L (12-78); Albumin Level 4.5 g/dl (3.5-5.0); Albumin/Globulin Ratio 1.5 (1.1-1.8); Alkaline Phosphatase 114 U/L (38-126); Anion Gap 9.3 mEq/L (5-15); Aspartate Amino Transferase 36 U/L (17-59); Bilirubin,Total 0.6 mg/dl (0.2-1.3); Blood Urea Nitrogen 17 mg/dl (9-20); Calcium 9.4 mg/dl (8.4-10.2); Carbon Dioxide 30 mmol/L (22.0-30.0); Chloride 102 mmol/L (98-107); Creatinine Clearance Estimated 97 mL/min (50-200); Estimated Glomerular Filt Rate 114 ml/min (>60); GFR (African American) 138 ML/MIN (>60); Glucose 184 mg/dl (74-100); Potassium 4.3 mmoL/L (3.5-5.1); Sodium 137 mmol/L (136-145); Total Protein,Serum 7.5 g/dl (6.3-8.2)
--- NOTE | 2022-04-26 14:43 | PC.NURSE ---
PT REPORTS CHEST PAIN, MD VERBAL ORDER FOR NITRO, PT REFUSES TO TAKE. DR. BETH AWARE
[2022-04-26 14:45] LABS: Troponin I < 0.01 ng/ml (0.00-0.034)
--- NOTE | 2022-04-26 15:00 | PC.NURSE ---
170/113 B/P HR 67 HYDRALAZINE GIVEN AT THIS TIME
--- NOTE | 2022-04-26 15:42 | ECG_ITS ---
APPROVED REPORT Exam: Resting ECG HR:71 bpm ECG Measurements Heart Rate 71 AXES VT 159 P 38 QRSd 133 QRS -69 QT 411 T -73 QTc 433 Conclusion SINUS RHYTHM WITH OCCASIONAL SUPRAVENTRICULAR PREMATURE COMPLEXES RIGHT BUNDLE BRANCH BLOCK [120+ ms QRS DURATION, UPRIGHT V1, 40+ ms S IN I/aVL/V4/V5/V6] LEFT ANTERIOR FASCICULAR BLOCK [QRS AXIS <= -45, QR IN I, RS IN II] LEFT VENTRICULAR HYPERTROPHY AND ST-T CHANGE [VOLTAGE CRITERIA PLUS ST/T ABNORMALITY] POSSIBLE SEPTAL MYOCARDIAL INFARCTION , PROBABLY OLD [30 ms Q WAVE IN V1/V2] ABNORMAL ECG UNCONFIRMED REPORT Electronically signed by : Ever Romero MD 04/26/2022 17:29:23
--- NOTE | 2022-04-26 15:43 | PC.NURSE ---
PT REPORTS INCREASED CHEST PAIN, ME AWARE. REPEAT EKG AT THIS TIME
--- NOTE | 2022-04-26 15:44 | CT_ITS ---
FINAL REPORT TECHNIQUE: Thin section axial CT images were obtained from the lung apices to the upper abdomen. IV contrast was administered. MIP 3-D reformats were obtained. This study was performed with techniques to keep radiation doses as low as reasonably achievable (ALARA). Individualized dose reduction techniques using automated exposure control or adjustment of mA and/or kV according to the patient's size were employed. CLINICAL HISTORY: chest pain FINDINGS: The heart size is normal. There is no adenopathy. There is no filling defect to suggest PE. There is no aortic dissection. There is no pericardial effusion. There is scarring or atelectasis in the lung bases. There is bibasilar bulla formation. There is a 7 mm density in the right upper lobe. No pleural effusion. Limited images of the upper abdomen demonstrate no acute abnormality. IMPRESSION: No pulmonary embolism or aortic dissection. Seven millimeter right upper lobe nodule. Per Fleischner criteria recommend 6-12 follow-up. Reviewed, Interpreted and Dictated by Jeison Brooks MD Transcribed by John Purdy Authenticated and [facility]
--- NOTE | 2022-04-26 15:52 | HMH.EDGENADL ---
Discharge Plan Disposition Patient Disposition: Home, Self-Care Condition: Good Chief Complaint: Chest Pain Prescriptions Prescriptions: No Action amiodarone 200 mg tablet 200 mg PO DAILY lisinopril 20 mg tablet 20 mg PO DAILY amlodipine 5 mg tablet 5 mg PO DAILY ropinirole 0.5 mg tablet 0.5 mg PO HS fluticasone propionate 50 mcg/actuation spray,suspension 2 spray INTRANASAL BID colchicine 0.6 mg tablet 0.6 mg PO BID nitroglycerin 0.4 mg Tablet, Sublingual 0.4 mg SUBLINGUAL Q5MINP PRN (Reason: Chest Pain) Rx Instructions: do not exceed 3 doses per episode glipizide 10 mg Tablet 10 mg PO DAILY atorvastatin 80 mg tablet 80 mg PO HS clopidogrel 75 mg tablet 75 mg PO DAILY omeprazole 40 mg Capsule,Delayed Release(Dr/Ec) 40 mg PO DAILY sertraline 50 mg tablet 50 mg PO HS albuterol sulfate 90 mcg/actuation HFA aerosol inhaler 2 puff INHALATION Q4-6H PRN (Reason: Shortness Of Breath) potassium chloride 20 mEq Tablet,Er Particles/Crystals 20 meq PO DAILY Qty: 30 0RF amoxicillin-pot clavulanate 875-125 mg tablet 1 tab PO BID Qty: 20 0RF Referrals Follow up/Referrals: Mila Lange [Primary Care Provider] - See instructions Clinical Impressions Clinical Impression: Abnormal chest CT, Chest pain Instructions Patient Instructions: Aspirin Discharge ED Provider: Otto Lin General Adult HPI General Chief complaint: Chest Pain Stated complaint: CP Time Seen by Provider: 04/26/22 14:05 Mode of Arrival: Wheelchair Limitations: No Limitations Description of Symptoms (Recalled from ER Triage Doc. 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 REPORTS COUGH AND SHORTNESS OF BREATH. History of Present Illness HPI narrative: 61yo M presents to the ER secondary to chest pain and back pain has been ongoing for at least 1 week. He tells the nurse that has been ongoing for a month. Reports taking a nitro prior to arrival and states it did not help his symptoms. Reports he feels mildly short of breath. Denies any injury, fall, other trauma. Related Data Home Medications Medication Instructions Recorded Confirmed albuterol sulfate 90 mcg/actuation 2 puff inhalation Q4-6H PRN 10/15/21 10/15/21 aerosol inhaler Shortness Of Breath amiodarone 200 mg tablet 200 mg PO DAILY Heart Rate 10/15/21 10/15/21 amlodipine 5 mg tablet 5 mg PO DAILY High blood pressure 10/15/21 10/15/21 atorvastatin 80 mg tablet 80 mg PO HS High cholesterol 10/15/21 10/15/21 clopidogrel 75 mg tablet 75 mg PO DAILY PLATELET INHIBITOR 10/15/21 10/15/21 colchicine 0.6 mg tablet 0.6 mg PO BID GOUT 10/15/21 10/16/21 fluticasone propionate 50 2 spray intranasal BID Allergy 10/15/21 10/15/21 mcg/actuation nasal symptoms spray,suspension glipizide 10 mg tablet 10 mg PO DAILY Diabetes 10/15/21 10/15/21 lisinopril 20 mg tablet 20 mg PO DAILY High blood pressure 10/15/21 10/15/21 nitroglycerin 0.4 mg sublingual 0.4 mg sublingual Q5MINP PRN Chest 10/15/21 10/16/21 tablet Pain omeprazole 40 mg capsule,delayed 40 mg PO DAILY GERD 10/15/21 10/15/21 release ropinirole 0.5 mg tablet 0.5 mg PO HS Restless legs 10/15/21 10/15/21 sertraline 50 mg tablet 50 mg PO HS Anxiety 10/15/21 10/15/21 Previous Rx's Medication Instructions Recorded potassium chloride 20 mEq 20 meq PO DAILY #30 tabs 10/18/21 tablet,extended release(part/cryst) amoxicillin 875 mg-potassium 1 tab PO BID #20 tabs 10/26/21 clavulanate 125 mg tablet Allergies Allergy/AdvReac Type Severity Reaction Status Date / Time No Known Allergies Allergy Unverified 01/25/17 15:25 [facility] Disclaimer: The information contained in this section may have been updated after the patient was seen, as this information can be updated by other users. Medical History Angina at rest Arrhythmia Atrial fibrillation and flutt
--- NOTE | 2022-04-26 16:07 | PC.NURSE ---
PT TO CT
--- NOTE | 2022-04-26 16:34 | PC.NURSE ---
1622 S.O. COMES TO NURSES STATION, REPORTS PT HAS ITCHING AND RAISED BUMPS TO BACK. PT WITH SMALL ROUND RAISED RED AREAS SCATTERED ON BACK, NO HIVES OR WELTS. NOTIFIED, VERBAL ORDERS RECEIVED AND GIVEN TO PT. PT AND S.O REQUESTING SOMETHING FOR PAIN STATES I DONT KNOW WHY HE HASN'T GOTTEN ANY PAIN MEDICATION PT AND S.O. INFORMED THAT PT RECEIVED TORADOL FOR PAIN BEFORE CT SCAN. PT STATES [place] I GOT MORPHINE INFORMED THAT MD HAS NOT GIVEN ORDER FOR MORPHINE PAIN, MADE AWARE
--- NOTE | 2022-04-26 16:42 | PC.NURSE ---
ROUNDED ON PT AT THIS TIME, PT REPORTS FEELING BETTER. S.O AT BEDSIDE
--- NOTE | 2022-04-26 17:44 | PC.NURSE ---
PT UPDATED AT THIS TIME, NO NEEDS VOICED
[2022-04-26 17:56] LABS: Troponin I < 0.01 ng/ml (0.00-0.034)
--- NOTE | 2022-04-26 18:23 | PC.NURSE ---
DR BETH AT BEDSIDE TO UPDATE PT ON DISCHARGE PLAN
== END 2022-04-26 18:34 | disposition home or self-care (01) ==
PROVIDERS: Emergency Provider Family Medicine; PCP Family Medicine
DX: R07.9 Chest pain, unspecified (principal)
CPT/HCPCS: 71045; 71275; 80053; 84484; 85025; 93005; 96374; 96375; 99285; J2405; Q9967

== ENCOUNTER 2023-09-27 11:59 | Observation (INO) | payer MEDICARE, SELFPAY ==
[2023-09-27] VITALS (21 sets, daily range): BP systolic 95–130; BP diastolic 51–91; PULSE 61–72; RESP 11–20; TEMP 36.6–36.9; O2SAT 92–100; BMI 28.5; BMI 29.3
--- NOTE | 2023-09-27 12:01 | ECG_ITS ---
APPROVED REPORT Exam: Resting ECG HR:65 bpm ECG Measurements Heart Rate 65 AXES VT 177 P 84 QRSd 139 QRS -65 QT 418 T -61 QTc 430 Conclusion Sinus rhythm Right bundle branch block Left axis deviation T wave inversions with mild ST depressions in inferior leads. No reciprocal change Electronically signed by : ANTONIA WAGNER, 09/28/2023 22:00:35
--- NOTE | 2023-09-27 12:09 | XR_ITS ---
FINAL REPORT CLINICAL HISTORY: cp syncope FINDINGS: SINGLE-VIEW CHEST The heart size is normal. The mediastinum is normal. There is chronic scarring in the perihilar regions and lung bases. There is no pneumothorax. IMPRESSION: No acute cardiopulmonary process. Reviewed, Interpreted and Dictated by Jeison Brooks MD Transcribed by Suni Pedro Authenticated and [facility]
--- NOTE | 2023-09-27 12:10 | CT_ITS ---
FINAL REPORT TECHNIQUE: The patient was injected with IV contrast. Axial images were obtained through the chest in a PE protocol. 3-D reconstruction images were also performed. Individualized dose reduction techniques using automated exposure control or adjustment of the MA and/or KV according to patient's size were employed. CLINICAL HISTORY: CP syncope COMPARISON: 04/26/2022 FINDINGS: The aorta and pulmonary arteries are not optimally opacified. There is no aortic dissection. There is dense coronary artery calcification. There is no axillary adenopathy. There is no hilar or mediastinal adenopathy. The heart size is normal. There is no pericardial or pleural effusion. Limited images of the upper abdomen are unremarkable. No suspicious infiltrate or nodule is identified. There is scarring in the lung bases. There is stable scarring in the anterior right upper lobe. There are moderate changes of emphysema, particularly at the bases. IMPRESSION: No acute process. Reviewed, Interpreted and Dictated by Jeison Brooks MD Transcribed by Suni Pedro Authenticated and [facility]
--- NOTE | 2023-09-27 12:10 | CT_ITS ---
FINAL REPORT TECHNIQUE: NASCET technique utilized for stenosis evaluation. CLINICAL HISTORY: syncope, CP FINDINGS: RIGHT CAROTID: No significant stenosis is seen of the cervical common or internal carotid artery. LEFT CAROTID: No significant stenosis seen of the cervical common or internal carotid artery. VERTEBRALS: The right vertebral artery is dominant. No significant stenosis is present. IMPRESSION: No significant arterial abnormality. Reviewed, Interpreted and Dictated by Jeison Brooks MD Transcribed by Suni Pedro Authenticated and [facility]
--- NOTE | 2023-09-27 12:10 | CT_ITS ---
FINAL REPORT TECHNIQUE: thin section axial CT with and without IV contrast supplemented with multiplanar 3-D reconstruction of the head. This study was performed with techniques to keep radiation doses as low as reasonably achievable, (ALARA)individualized dose reduction techniques using automated exposure control or adjustment of mA and/or kV according to the patient's size were employed. CLINICAL HISTORY: syncope, CP FINDINGS: The cranial circulation is unremarkable. There is no significant stenosis, aneurysm or occlusion. IMPRESSION: No acute process. Reviewed, Interpreted and Dictated by Jeison Brooks MD Transcribed by Suni Pedro Authenticated and [facility]
--- NOTE | 2023-09-27 12:10 | CT_ITS ---
FINAL REPORT TECHNIQUE: Axial CT images were performed through the head. Coronal reformatted images were submitted. This study was performed with techniques to keep radiation doses as low as reasonably achievable (ALARA). Individualized dose reduction techniques using automated exposure control or adjustment of mA and/or kV according to the patient's size were employed. CLINICAL HISTORY: fall, head trauma FINDINGS: There is mild atrophy. The ventricles are normal in size. There is no evidence of hemorrhage. There is no mass or edema identified. There is no abnormal extra-axial fluid seen. The sinuses are well aerated. IMPRESSION: No acute intracranial process. Reviewed, Interpreted and Dictated by Jeison Brooks MD Transcribed by Suni Pedro Authenticated and . [facility]
--- NOTE | 2023-09-27 12:23 | PC.NURSE ---
pt to CT via stretcher
--- NOTE | 2023-09-27 12:34 | HMH.EDCP ---
Discharge Plan Disposition Patient Disposition: Admitted Chief Complaint: Syncope Prescriptions Prescriptions: No Action amiodarone 200 mg tablet 200 mg PO DAILY lisinopril 20 mg tablet 20 mg PO DAILY amlodipine 5 mg tablet 5 mg PO DAILY ropinirole 0.5 mg tablet 0.5 mg PO HS fluticasone propionate 50 mcg/actuation spray,suspension 2 spray INTRANASAL BID colchicine 0.6 mg tablet 0.6 mg PO BID nitroglycerin 0.4 mg Tablet, Sublingual 0.4 mg SUBLINGUAL Q5MINP PRN (Reason: Chest Pain) Rx Instructions: do not exceed 3 doses per episode glipizide 10 mg Tablet 10 mg PO DAILY atorvastatin 80 mg tablet 80 mg PO HS clopidogrel 75 mg tablet 75 mg PO DAILY omeprazole 40 mg Capsule,Delayed Release(Dr/Ec) 40 mg PO DAILY sertraline 50 mg tablet 50 mg PO HS albuterol sulfate 90 mcg/actuation HFA aerosol inhaler 2 puff INHALATION Q4-6H PRN (Reason: Shortness Of Breath) potassium chloride 20 mEq Tablet,Er Particles/Crystals 20 meq PO DAILY Qty: 30 0RF amoxicillin-pot clavulanate 875-125 mg tablet 1 tab PO BID Qty: 20 0RF Referrals Follow up/Referrals: Provider,Referral, MD [Referring] - See instructions Clinical Impressions Clinical Impression: Syncope, Unstable angina Instructions Patient Instructions: DI for Syncope in Adults (Fainting), DI for Syncope in Children (Fainting) Print Language Print Language: Dutch Discharge ED Provider: Harvey Mulligan HPI General Chief Complaint: Syncope Stated Complaint: Chest Pain Time Seen by Provider: 09/27/23 12:02 Mode of Arrival: EMS Source of Information: Patient Limitations: No Limitations Description of Symptoms (Recalled from ER Triage Doc. by RN): Reports that he passed out in his hallway. Denies chest pain at this time. States he feels dizzy. History of Present Illness HPI narrative: Please note that above description of symptoms, in this electronic medical record under categorization of recalled from ER triage doctor by RN are reflective of an initial nursing assessment, however, is not reflective of my full history and physical exam that was personally taken and clarified. Consequentially, this preceding description of symptoms, which may include the patient's categorized chief complaint in the EMR, do not reflect my personal clinical impression, and the ultimate description of history of present illness and patient stated complaints should be deferred to this section of the note. Unless stated otherwise or congruent with this section of the note, additional signs, symptoms, or incongruence should be interpreted as inaccurate with my clinical impression. Related Data Home Medications ?Medication ?Instructions ?Recorded ?Confirmed albuterol sulfate 90 mcg/actuation 2 puff inhalation Q4-6H PRN 10/15/21 10/15/21 aerosol inhaler Shortness Of Breath amiodarone 200 mg tablet 200 mg PO DAILY Heart Rate 10/15/21 10/15/21 amlodipine 5 mg tablet 5 mg PO DAILY High blood pressure 10/15/21 10/15/21 atorvastatin 80 mg tablet 80 mg PO HS High cholesterol 10/15/21 10/15/21 clopidogrel 75 mg tablet 75 mg PO DAILY PLATELET INHIBITOR 10/15/21 10/15/21 colchicine 0.6 mg tablet 0.6 mg PO BID GOUT 10/15/21 10/16/21 fluticasone propionate 50 2 spray intranasal BID Allergy 10/15/21 10/15/21 mcg/actuation nasal symptoms spray,suspension glipizide 10 mg tablet 10 mg PO DAILY Diabetes 10/15/21 10/15/21 lisinopril 20 mg tablet 20 mg PO DAILY High blood pressure 10/15/21 10/15/21 nitroglycerin 0.4 mg sublingual 0.4 mg sublingual Q5MINP PRN Chest 10/15/21 10/16/21 tablet Pain omeprazole 40 mg capsule,delayed 40 mg PO DAILY GERD 10/15/21 10/15/21 release ropinirole 0.5 mg tablet 0.5 mg PO HS Restless legs 10/15/21 10/15/21 sertraline 50 mg tablet 50 mg PO HS Anxiety 10/15/21 10/15/21 Previous Rx's ?Medication ?Instructions ?Recorded potassium chloride 20 mEq 20 meq PO DAILY #30 ta
--- NOTE | 2023-09-27 12:43 | PC.NURSE ---
pt returned from CT
[2023-09-27 12:47] LABS: Albumin Level 3.9 g/dl (3.5-5.0); Chloride 107 mmol/L (98-107)
[2023-09-27 12:48] LABS: Potassium 4.4 mmoL/L (3.5-5.1); Sodium 135 mmol/L (136-145)
--- NOTE | 2023-09-27 12:49 | ECG_ITS ---
APPROVED REPORT Exam: Resting ECG HR:70 bpm ECG Measurements Heart Rate 70 AXES WV 187 P 67 QRSd 148 QRS -58 QT 452 T -33 QTc 473 Conclusion Sinus rhythm Right bundle branch block Left axis deviation Improved amplitude of T wave inversions in inferior leads Electronically signed by : ANTONIA WAGNER, 09/28/2023 22:01:29
[2023-09-27 12:50] LABS: Alanine Aminotransferase 56 U/L (12-78); Anion Gap 9.4 mEq/L (5-15); Aspartate Amino Transferase 68 U/L (17-59); Blood Urea Nitrogen 17 mg/dl (9-20); Carbon Dioxide 23 mmol/L (22.0-30.0); Creatinine Clearance Estimated 99 mL/min (50-200); Estimated Glomerular Filt Rate 75 ml/min (>60); GFR (African American) 91 ML/MIN (>60)
--- NOTE | 2023-09-27 12:50 | PC.NURSE ---
Repeat EKG performed at 1249
[2023-09-27 12:51] LABS: Albumin/Globulin Ratio 1.4 (1.1-1.8); Alkaline Phosphatase 90 U/L (38-126); Bilirubin,Total 0.9 mg/dl (0.2-1.3); Calcium 8.9 mg/dl (8.4-10.2); Globulin 2.7 g/dL (1.3-3.2); Glucose 202 mg/dl (74-100); Total Protein,Serum 6.6 g/dl (6.3-8.2)
[2023-09-27 12:52] LABS: Basophils # 0.1 K/mm3 (0-0.2); Basophils % 0.6 % (0.1-2.0); Eosinophils # 0.1 K/mm3 (0.0-0.4); Eosinophils % 0.5 % (0.1-12.0); Hematocrit 45.8 % (42.0-52.0); Hemoglobin 14.5 g/dL (14.1-18.0); Lymphocytes # 3.2 K/mm3 (0.7-4.5); Lymphocytes % 24.7 % (10-50); Mean Corpuscular HGB Conc 31.7 g/dL (31.8-35.4); Mean Corpuscular Hemoglobin 30.5 pg (27.0-31.2); Mean Corpuscular Volume 96.3 fl (80-94); Mean Platelet Volume 8.6 fl (7.4-10.4); Monocytes # 0.5 K/mm3 (0.1-1.0); Monocytes % 3.9 % (1.7-9.3); Neutrophils # 9.2 K/mm3 (1.8-7.8); Neutrophils % 70.3 % (37.0-80.0); Platelet Count 242 K/mm3 (142-424); Red Blood Count 4.76 M/mm3 (4.60-6.20); Red Cell Distribution Width 13.9 % (11.5-17.5); White Blood Count 13.1 K/mm3 (4.8-10.8)
[2023-09-27 13:03] LABS: Troponin I < 0.01 ng/ml (0.00-0.034)
[2023-09-27 13:06] LABS: Activated Partial Thrombo Time 25.6 seconds (22.8-30.6); INR 1.01 (0.9-1.1); Prothrombin Time 11.3 seconds (10.1-12.5)
--- NOTE | 2023-09-27 15:02 | IR_ITS ---
APPROVED REPORT Patient Location: [facility] Operator: DEB Zapata RT (R) PROCEDURES Left heart catheterization Left ventriculogram Selective coronary angiogram INDICATION Acute coronary syndrome/unstable angina SCAI INDICATION Was contacted by the emergency room physician for 63-year-old gentleman with dynamic EKG changes in the setting of diaphoresis and ongoing chest pain. It was advised patient come directly to the [facility] based on the clinical picture of unstable angina with dynamic EKG changes. Patient was brought to the [facility] for coronary angiography Informed consent was obtained prior to the procedure. COMPLICATIONS None Estimated Blood Loss: Less than 10 mls TECHNIQUE One percent lidocaine used to anesthetize the right anterior aspect of the wrist. The right radial artery was accessed via the Seldinger technique. A 6 [place] sheath was placed in the right radial artery. 2.5 mg of Verapamil, 800 mcg of nitroglycerin, 1mg Lidocaine and 5000 U Heparin were given through the arterial sheath. The papa catheter was also used to perform left heart catheterization, left ventriculogram and selective coronary angiogram. At the end of the procedure the sheath was removed good hemostasis was achieved using Traclet band, patient was transferred to the postop holding area in stable condition. ANGIOGRAPHIC RESULTS The left main artery Normal The left anterior descending artery Has stent in the ostial proximal and mid segment in a contiguous manner. The proximal portion of the LAD stent has concentric 30% in-stent restenosis. There is additional 40 to 50% mid vessel stenoses with distal 40% and an additional eccentric 50% distal stenosis there is a small first diagonal artery less than 1 mm in diameter which has an ostial 90% stenosis. The second diagonal artery is small to medium and has an ostial 70% stenosis followed by a proximal 80 to 90% stenosis. The vessel is 1 mm to 1.5 mm in diameter The circumflex artery Is nondominant gives rise to a large ramus intermedius which has a stent in the proximal segment which has 30 to 40% concentric in-stent restenosis with excellent proximal distal transitioning. 2 distal marginal branches are medium in caliber and have 30 and 40% stenoses. The circumflex artery itself is small nondominant and patent The right coronary artery Is dominant and has an ostial smooth 40% stenosis with no dampening upon engagement of a 6 [place] catheter. There is mild to moderate vascular ectasia with 30% mid vessel stenoses mid vessel 30 to 40% stenosis and distal 30% stenoses. Posterior lateral branch is large and has mid vessel 30% stenosis The [place] ventriculogram reveals Normal 65% The left ventricular end-diastolic pressure 10 to 15 mmHg IMPRESSION Coronary artery disease as described above none of which explains resting angina pectoris Normal ejection fraction Normal LVEDP PLAN 1. Admit to the hospital with further evaluation for chest pain syndrome 2. It is reasonable to trend troponins although I see no angiographic identifiable reason for chest pain 3. Continue with risk factor modification Electronically signed by : Efrem Ewing MD 09/27/2023 15:43:04
[2023-09-27 15:18] LABS: PTT Heparin (inpatient only) 25.9 Seconds (50-75)
--- NOTE | 2023-09-27 15:18 | SUR.PHASEII ---
Dr. Ewing notified of pt's PTT result.
[2023-09-27 15:32] LABS: Troponin I < 0.01 ng/ml (0.00-0.034)
--- NOTE | 2023-09-27 16:14 | HMH.PHAINT1 ---
Pharmacy Intervention Comments: MEDICATION RECONCILIATION COMPLETED ON PATIENT USING EXTERNAL FILL HISTORY FROM PHARMACY. -CORTNEY SIMON, VITALIYD
--- NOTE | 2023-09-27 18:39 | EXP.HP ---
History of Present Illness *Admission Date: 09/27/23 *Reason for visit:: dizziness *History of present illness: Patient presents to hospital with syncope and dizziness. Patient states he was at home, when he experienced a syncopal episode. Patient remembers experiencing lightheadedness, vertigo, weakness then I just hit the floor. Patient states his neighbor called EMS and patient brought to hospital. Patient found to be hypotensive at time initial evaluation. Patient was chest pain-free at home, but noticed chest pain in emergency room. Patient also noted to have T wave inversions in emergency room. Patient diagnosed with unstable angina, and taken immediately to [facility]. Patient had multivessel disease and received angioplasty during [facility] evaluation. History of previous 3 previous cardiac stents, but no stents placed today. Denies abdominal pain, fevers, chills, known sick contacts, diarrhea, constipation. [facility] Disclaimer: The information contained in this section may have been updated after the patient was seen, as this information can be updated by other users. Medical History Angina at rest Arrhythmia Atrial fibrillation and flutter Cystic lung, congenital Diabetes GERD (gastroesophageal reflux disease) Heart murmur History of heart attack History of left heart catheterization (LHC) History of pneumothorax Hyperlipidemia Hypertension Palpitations Pericardial effusion without cardiac tamponade Pericarditis PNA (pneumonia) Presence of stent in LAD coronary artery RBBB (right bundle branch block with left anterior fascicular block) Surgical History Hx of heart artery stent Previous back surgery Family History Other Family history of COPD (chronic obstructive pulmonary disease) Family history of hyperlipidemia Family history of hypertension Family history of myocardial infarction Family history of stroke Lung cancer Social History Smoking Status: Current every day smoker alcohol intake: current current occupational status: previously employed and disabled Travel in the last 8 weeks: None Review of Systems Constitutional Constitutional: Reports system reviewed and no additional complaints, except as documented Meds Home Medications and Allergies Home Medications ?Medication ?Instructions ?Recorded ?Confirmed ?Type atorvastatin 80 mg tablet 80 mg PO HS 10/15/21 09/27/23 History glipizide 10 mg tablet 10 mg PO DAILY 10/15/21 09/27/23 History omeprazole 40 mg capsule,delayed 40 mg PO DAILY 10/15/21 09/27/23 History release ropinirole 0.5 mg tablet 0.5 mg PO HS 10/15/21 09/27/23 History sertraline 50 mg tablet 50 mg PO HS 10/15/21 09/27/23 History amitriptyline 50 mg tablet 50 mg PO HS 09/27/23 09/27/23 History tamsulosin 0.4 mg capsule 0.4 mg PO HS 09/27/23 09/27/23 History New Prescriptions to Start Prescriptions: Allergies Allergy/AdvReac Type Severity Reaction Status Date / Time bee venom protein (honey bee) Allergy Verified 09/27/23 16:32 Exam Data for Last 24 hours Vital signs and Labs for Last 24 Hours: Temp Pulse Resp BP Pulse Ox O2 Del Method 97.9 F 65 18 127/86 93 L Room Air 09/27/23 15:40 09/27/23 18:25 09/27/23 17:25 09/27/23 18:25 09/27/23 18:25 09/27/23 18:25 Laboratory Results - last 24 hr 09/27/23 12:27: WBC 13.1 H, RBC 4.76, Hgb 14.5, Hct 45.8, MCV 96.3 H, MCH 30.5, MCHC 31.7 L, RDW 13.9, Plt Count 242, MPV 8.6, Neut % (Auto) 70.3, Lymph % (Auto) 24.7, [place] % (Auto) 3.9, Eos % (Auto) 0.5, Baso % (Auto) 0.6, Neut # (Auto) 9.2 H, Lymph # (Auto) 3.2, [place] # (Auto) 0.5, Eos # (Auto) 0.1, Baso # (Auto) 0.1, Sodium 135 L, Potassium 4.4, Chloride 107, Carbon Dioxide 23, Anion Gap 9.4, BUN 17, Creatinine 1.00, Estimated Creat [place]
[2023-09-27 18:53] LABS: Troponin I < 0.01 ng/ml (0.00-0.034)
[2023-09-27 20:22] LABS: POC Glucose,Bedside 193 (70-110)
[2023-09-28] VITALS: BP 120/69; PULSE 72; PULSE 76; RESP 16; TEMP 37; O2SAT 95
--- NOTE | 2023-09-28 03:20 | ECG_ITS ---
APPROVED REPORT Exam: Resting ECG HR:74 bpm ECG Measurements Heart Rate 74 AXES IA 164 P 7 QRSd 146 QRS -68 QT 442 T -36 QTc 470 Conclusion SINUS RHYTHM LEFT AXIS DEVIATION [QRS AXIS < -30] RIGHT BUNDLE BRANCH BLOCK [120+ ms QRS DURATION, UPRIGHT V1, 40+ ms S IN I/aVL/V4/V5/V6] POSSIBLE SEPTAL MYOCARDIAL INFARCTION , PROBABLY OLD [30 ms Q WAVE IN V1/V2] ABNORMAL ECG UNCONFIRMED REPORT Electronically signed by : Ever Romero MD 09/28/2023 14:05:54
[2023-09-28 03:33] LABS: POC Glucose,Bedside 156 (70-110)
[2023-09-28 04:00] VITALS: BP 112/78; PULSE 65; PULSE 70; RESP 16; TEMP 37; O2SAT 96; BMI 29.5
[2023-09-28 04:54] LABS: Alanine Aminotransferase 49 U/L (12-78); Albumin Level 3.3 g/dl (3.5-5.0); Albumin/Globulin Ratio 1.3 (1.1-1.8); Alkaline Phosphatase 86 U/L (38-126); Anion Gap 7.4 mEq/L (5-15); Aspartate Amino Transferase 47 U/L (17-59); Bilirubin,Total 0.4 mg/dl (0.2-1.3); Blood Urea Nitrogen 15 mg/dl (9-20); Calcium 8.5 mg/dl (8.4-10.2); Carbon Dioxide 23 mmol/L (22.0-30.0); Chloride 108 mmol/L (98-107); Creatinine Clearance Estimated 102 mL/min (50-200); Estimated Glomerular Filt Rate 135 ml/min (>60); GFR (African American) 164 ML/MIN (>60); Globulin 2.5 g/dL (1.3-3.2); Glucose 161 mg/dl (74-100); Potassium 3.4 mmoL/L (3.5-5.1); Sodium 135 mmol/L (136-145); Total Protein,Serum 5.8 g/dl (6.3-8.2)
[2023-09-28 04:58] LABS: Troponin I < 0.01 ng/ml (0.00-0.034)
[2023-09-28 05:51] LABS: Hematocrit 40.8 % (42.0-52.0); Hemoglobin 13.4 g/dL (14.1-18.0); Mean Corpuscular HGB Conc 32.9 g/dL (31.8-35.4); Mean Corpuscular Hemoglobin 31.2 pg (27.0-31.2); Mean Platelet Volume 8.8 fl (7.4-10.4); Neutrophils % 45.4 % (37.0-80.0); Platelet Count 194 K/mm3 (142-424); Red Blood Count 4.29 M/mm3 (4.60-6.20); Red Cell Distribution Width 13.9 % (11.5-17.5); White Blood Count 10.9 K/mm3 (4.8-10.8)
[2023-09-28 05:52] LABS: Basophils % 0.8 % (0.1-2.0); Eosinophils % 2.3 % (0.1-12.0); Lymphocytes % 45.2 % (10-50); Monocytes % 4.9 % (1.7-9.3); Neutrophils # 4.9 K/mm3 (1.8-7.8)
[2023-09-28 05:53] LABS: Basophils # 0.1 K/mm3 (0-0.2); Eosinophils # 0.3 K/mm3 (0.0-0.4); Lymphocytes # 4.9 K/mm3 (0.7-4.5); Monocytes # 0.5 K/mm3 (0.1-1.0)
[2023-09-28 06:10] LABS: Anion Gap 7.5 mEq/L (5-15); Blood Urea Nitrogen 14 mg/dl (9-20); Calcium 8.4 mg/dl (8.4-10.2); Carbon Dioxide 24 mmol/L (22.0-30.0); Chloride 109 mmol/L (98-107); Chol/HDL Ratio 5.9 (1-3.5); Cholesterol 136 mg/dl (140-200); Creatinine Clearance Estimated 102 mL/min (50-200); Estimated Glomerular Filt Rate 113 ml/min (>60); GFR (African American) 137 ML/MIN (>60); Glucose 131 mg/dl (74-100); HDL Cholesterol 23 mg/dl (40-60); Magnesium 1.4 mg/dl (1.6-2.3); Potassium 3.5 mmoL/L (3.5-5.1); Sodium 137 mmol/L (136-145); Triglycerides 161 mg/dl (30-150); VLDL Cholesterol 32 mg/dL (0-40)
[2023-09-28 06:20] LABS: Direct LDL Cholesterol 83.46 mg/dL (100-129)
[2023-09-28 06:21] LABS: POC Glucose,Bedside 129 (70-110)
[2023-09-28 06:22] LABS: Troponin I < 0.01 ng/ml (0.00-0.034)
--- NOTE | 2023-09-28 07:41 | PC.NURSE ---
09/28/23 0305 Patient states he feels like hes going to pass out. Pain down right arm. Shortness of breath 0305 FSBS 156, 147/101, HR 74, 97% 2L NC 0307 Tylenol 650mg and Nitro 0.4mg SL administered. 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
[2023-09-28 08:00] VITALS: BP 144/90; PULSE 72; PULSE 75; RESP 18; TEMP 36.7; O2SAT 96
--- NOTE | 2023-09-28 09:17 | EXP.CARD.CON ---
History of Present Illness History of Present Illness Consult date: 09/28/23 Requesting physician: Gamal Gordon Chief complaint: chest pain History of present illness: This is a 63-year-old white gentleman who presented to the emergency department complaints of dizziness. The patient has a past medical history of coronary artery disease, hypertension, hyperlipidemia and diabetes mellitus. The patient states that he had a syncopal episode at home. He remembers being very lightheaded and weak prior to just hitting the floor. The patient states his neighbor called EMS and brought him to the hospital. He was hypotensive upon arrival to the emergency department at the time of his initial evaluation. The patient reports that he was chest pain free at home but once he got to the emergency department he started having significant pressure in his chest. He states that it did not radiate. He was short of breath with this and more dizzy. He states that this was a severe pain. He was taken to the cardiac catheterization laboratory yesterday and had patent coronary artery disease with no intervention. He did have serial troponin which ruled out an SD as well. This morning he states that his chest pain has significantly improved. He still has a little aching and pressure in his chest but it is much better than it was. He denies any shortness of breath or edema. He denies any fever, chills, nausea, vomiting, diarrhea, PND or orthopnea. [facility] Disclaimer: The information contained in this section may have been updated after the patient was seen, as this information can be updated by other users. Medical History (Updated 09/28/23 @ 09:45 by Kelsey Skinner APRN) RBBB (right bundle branch block with left anterior fascicular block) Syncope Dizziness Angina pectoris Coronary artery disease Cystic lung, congenital History of pneumothorax Atrial fibrillation and flutter Presence of stent in LAD coronary artery Pericardial effusion without cardiac tamponade PNA (pneumonia) Diabetes GERD (gastroesophageal reflux disease) Pericarditis Angina at rest History of heart attack Hyperlipidemia Palpitations Hypertension Heart murmur Arrhythmia History of left heart catheterization (LHC) Surgical History Hx of heart artery stent Previous back surgery Family History Other Family history of COPD (chronic obstructive pulmonary disease) Family history of hyperlipidemia Family history of hypertension Family history of myocardial infarction Family history of stroke Lung cancer Social History Smoking Status: Current every day smoker alcohol intake: current current occupational status: previously employed and disabled Travel in the last 8 weeks: None Exam Data for Last 24 hours Vital signs and Labs for Last 24 Hours: Temp Pulse Resp BP Pulse Ox O2 Del Method O2 Flow Rate 98.1 F 72 18 144/90 H 96 Nasal Cannula 2 09/28/23 08:00 09/28/23 08:00 09/28/23 08:00 09/28/23 08:00 09/28/23 08:00 09/28/23 08:20 09/28/23 08:20 Laboratory Results - last 24 hr 09/27/23 12:27: WBC 13.1 H, RBC 4.76, Hgb 14.5, Hct 45.8, MCV 96.3 H, MCH 30.5, MCHC 31.7 L, RDW 13.9, Plt Count 242, MPV 8.6, Neut % (Auto) 70.3, Lymph % (Auto) 24.7, [place] % (Auto) 3.9, Eos % (Auto) 0.5, Baso % (Auto) 0.6, Neut # (Auto) 9.2 H, Lymph # (Auto) 3.2, [place] # (Auto) 0.5, Eos # (Auto) 0.1, Baso # (Auto) 0.1, Sodium 135 L, Potassium 4.4, Chloride 107, Carbon Dioxide 23, Anion Gap 9.4, BUN 17, Creatinine 1.00, Estimated Creat Clear 99, Estimated GFR 75, Est GFR ( Amer) 91, Glucose 202 H, Calcium 8.9, Total Bilirubin 0.9, AST 68 H, ALT 56, Alkaline Phosphatase 90, Troponin I < 0.01, NT-Pro-B Natriuret Pep 56.0, Total Protein 6.6, Albumin 3.9, Globulin 2.7, Albumin/Globulin Ratio 1.4 09/27/23 12:47: PT
--- NOTE | 2023-09-28 11:29 | CA_ITS ---
APPROVED REPORT EXAM: Comprehensive 2D, Doppler, and color-flow Echocardiogram Union Organiser: CRISTIAN Ye, RVS Ht: 6 ft 0 in Wt: 218lbs BSA: 2.21 BP: 120/80 mmHg Indications: Angina, Afib, Murmur, CP, Palpitations, RBBB, HTN, HLD Echo Enhancing Agent Comments: Unable to rule out bicuspid aortic valve due to limited windows 2D Dimensions IVSd 1.19 cm LVEF (Visual) 54.30 % PWd 1.10 cm LVEF (West's) 62.20 % LVDd 5.49 cm LV Volume 89.80 mL LVDs 3.93 cm LV Volume Index 40.632221 mL/m2 M: 34 - 74 Aortic Root 3.90 cm LA Volume 72.90 mL Left Atrium 3.22 cm LA Volume Index 32.890318 mL/m2 (M/F) 16-34 LVOT 2.15 cm (M/F) 1.5-2.5 EF AP4 56.50 % EF AP2 64.4 % EF BP 62.2 % GL Strain -16.7 % M-Mode Dimensions LVDd 5.49 cm (3.5-5.7) Ao Diam 4.56 cm (2.0-3.7) LVDs 3.94 cm (3.5-5.7) IVSd 1.19 cm (0.6-1.1) PWd 1.10 cm (0.6-1.1) EF (Teich) 64.20% EPSs 0.61 cm FS 33.20% EDV (Teich) 188.30 mL TAPSE 1.83 (<1.7) ESV (Teich) 67.50 mL LV Diastology E Decel Time 225 (160-240 msec) E/A Ratio 1.00 MED E' 6.9 (>= 7 cm/sec) MED A' 8.60 cm/s E'/MED E' Ratio 13.01 (<= 14) LAT E' 8.3 (>= 10 cm/sec) LAT A' 9.60 cm/s E/LAT E' Ratio 10.82 (<= 14) Aortic Valve LVOT Max 101.0 (70-110 cm/s) GREG Index 1.75 cm2/m2 LVOT VTI 20.41 cm AoV Peak Asa. 106.0 (50-130 cm/s) AI PHT 388.00 ms AO Mean GR. 2.30 (<5 mmHg) AO VTI 19.1 (18-25 cm) GREG (VTI) 3.87 (2.5-4.5 cm2) Mitral Valve MV E Max Asa. 90.0 (40-130 cm/s) MV A Velocity 90.0 (40-130 cm/s) E/A Ratio 1.00 MV Decel. Time 225 (160-240 ms) Tricuspid Valve TR P. Velocity 173.00 cm/s RAP Estimate 10.00 mmHg RVSP 22.00 mmHg Left Ventricle The left ventricle is normal size. The left ventricular systolic function is normal. The left ventricular ejection fraction is within the normal range. There is increased LV wall thickness. There is normal LV segmental wall motion. Transmitral Doppler flow pattern suggests impaired LV relaxation. LVEF is 60%. Right Ventricle Right ventricle is mildly dilated. Right ventricle is mildly hypokinetic. Atria The left atrium is mildly dilated. The right atrium is mildly dilated. There is no Doppler evidence of interatrial shunt. Aortic Valve The aortic valve is mildly thickened. There is no aortic valvular stenosis. Mild aortic regurgitation. Mitral Valve The mitral valve is mildly thickened. No evidence of mitral valve stenosis. Trace mitral regurgitation. Tricuspid Valve The tricuspid valve leaflets are thin and pliable. Trace tricuspid regurgitation. There is insufficient TR jet to estimate RVSP. Pulmonic Valve The pulmonary valve is normal in structure. Trace pulmonic regurgitation. Great Vessels The aortic root is normal in size. The ascending aorta is mildly dilated, measuring 4.0 cm in diameter. IVC is normal in size and collapses >50% with inspiration. Pericardium There is no pericardial effusion. Other Information Study Quality: Fair Conclusion Normal biventricular systolic function. Mild RV dilation. Mild biatrial dilation. No significant valvular stenosis or regurgitation. Mild ascending aorta dilation (4.0 cm). Electronically signed by : Kymberly Conklin MD 09/29/2023 16:12:44
--- NOTE | 2023-09-28 11:31 | HMH.OTEV ---
OT Inpatient Evaluation Rehab OT IP Evaluation Start: 09/28/23 10:58 Freq: ONCE Status: Active Protocol: Document 09/28/23 11:28 MARY BETH (Rec: 09/28/23 11:31 [facility] [id number]) Rehab OT IP Assessment Subjective History Pt oriented x 3 on arrival and agreeable to engage in therapy evaluation. Pt admitted on 09/27/23 due to dizziness and syncope episode at home. History and Physical report: Patient presents to hospital with syncope and dizziness. Patient states he was at home, when he experienced a syncopal episode. Patient remembers experiencing lightheadedness, vertigo, weakness then I just hit the floor. Patient states his neighbor called EMS and patient brought to hospital. Patient found to be hypotensive at time initial evaluation. Patient was chest pain-free at home, but noticed chest pain in emergency room. Patient also noted to have T wave inversions in emergency room. Patient diagnosed with unstable angina, and taken immediately to [facility]. Patient had multivessel disease and received angioplasty during [employer] evaluation. History of previous 3 previous cardiac stents, but no stents placed today. Denies abdominal pain, fevers, chills, known sick contacts, diarrhea, constipation. Subjective Prior to being in the hospital , pt lived at home with his girlfriend. Pt claims normally he is independent with all ADLs and IADLs. Pt does not require any type of AE during functional transfers . Pt also still drives as
--- NOTE | 2023-09-28 11:32 | HMH.PTEV ---
Physical Therapy Evaluation Rehab PT IP Evaluation Start: 09/28/23 11:00 Freq: ONCE Status: Active Protocol: Document 09/28/23 11:29 SELENA (Rec: 09/28/23 11:32 [facility]LE[facility] [id number]) Subjective/History History History H&P: Patient presents to hospital with syncope and dizziness. Patient states he was at home, when he experienced a syncopal episode . Patient remembers experiencing lightheadedness, vertigo, weakness then I just hit the floor. Patient states his neighbor called EMS and patient brought to hospital. Patient found to be hypotensive at time initial evaluation. Patient was chest pain-free at home, but noticed chest pain in emergency room. Patient also noted to have T wave inversions in emergency room. Patient diagnosed with unstable angina, and taken immediately to [facility]. Patient had multivessel disease and received angioplasty during [employer] App[employer] evaluation. History of previous 3 previous cardiac stents, but no stents placed today. Denies abdominal pain, fevers, chills, known sick contacts, diarrhea, constipation. Subjective Subjective Pt lives at home with his girlfriend who is there during the day. Pt IND with all functional mobility and ambulation without AD prior to admission. New diagnosis of cancer in past 12 No months? Rehab PT IP Eval Objective Appearance Patient Behavior Appropriate,Cooperative Patient Orientation Person,Place Difficulty following instructions none Ambulation Patient Able to Ambulate Yes Ambulation Observation IP General Gait Pattern Observation No Deviations/Normal Ambulation Distance (feet) 38 Ambulation Assistive Device None Ambulation Ability Supervision/Stand by Balance
[2023-09-28 11:47] LABS: POC Glucose,Bedside 152 (70-110)
[2023-09-28 12:00] VITALS: PULSE 75
--- NOTE | 2023-09-28 13:13 | EXP.DC.SUM ---
General Admission date:: 09/27/23 Discharge date: 09/28/23 HPI HPI HPI: Patient presents to hospital with syncope and dizziness. Patient states he was at home, when he experienced a syncopal episode. Patient remembers experiencing lightheadedness, vertigo, weakness then I just hit the floor. Patient states his neighbor called EMS and patient brought to hospital. Patient found to be hypotensive at time initial evaluation. Patient was chest pain-free at home, but noticed chest pain in emergency room. Patient also noted to have T wave inversions in emergency room. Patient diagnosed with unstable angina, and taken immediately to [facility]. Patient had multivessel disease and received angioplasty during [employer] evaluation. History of previous 3 previous cardiac stents, but no stents placed today. Denies abdominal pain, fevers, chills, known sick contacts, diarrhea, constipation. Hospital Course Hospital Course Hospital Course: Patient presented to hospital complaining of syncope. Patient received neurocardiogenic syncope workup during hospitalization. Patient evaluated by cardiology with cardiac catheterization showing CAD. Patient has [address], and received angioplasty of stenotic cardiac vessel 09/27/[address] 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 MRI brain done during hospitalization 09/27 without signs of acute stroke. CTA head/neck done showing no acute abnormalities. CTA chest showed no pulmonary embolus or signs of infection. PT/OT worked with patient and recommended home health at time of hospital discharge. Patient subsequently discharged home with instructions to follow-up with PCP, cardiology, and neurology for outpatient continued syncopal workup. Patient discharged on Imdur at time of hospital discharge. Exam Data for Last 24 hours Vital signs and Labs for Last 24 Hours: Temp Pulse Resp BP Pulse Ox O2 Del Method O2 Flow Rate 98.1 F 72 18 144/90 H 96 Room Air 2 09/28/23 08:00 09/28/23 08:00 09/28/23 08:00 09/28/23 08:00 09/28/23 08:00 09/28/23 09:00 09/28/23 08:20 Laboratory Results - last 24 hr 09/27/23 12:47: APTT 25.9 L 09/27/23 14:52: Troponin I < 0.01 09/27/23 18:16: Troponin I < 0.01 09/27/23 20:00: POC Glucose 193 H 09/28/23 02:52: POC Glucose 156 H 09/28/23 04:00: WBC 10.9 H, RBC 4.29 L, Hgb 13.4 L, Hct 40.8 L, MCV 95.0 H, MCH 31.2, MCHC 32.9, RDW 13.9, Plt Count 194, MPV 8.8, Neut % (Auto) 45.4, Lymph % (Auto) 45.2, [place] % (Auto) 4.9, Eos % (Auto) 2.3, Baso % (Auto) 0.8, Neut # (Auto) 4.9, Lymph # (Auto) 4.9 H, [place] # (Auto) 0.5, Eos # (Auto) 0.3, Baso # (Auto) 0.1, Sodium 135 L, Potassium 3.4 L D, Chloride 108 H, Carbon Dioxide 23, Anion Gap 7.4, BUN 15, Creatinine 0.60 L D, Estimated Creat Clear 102, Estimated GFR 135, Est GFR ( Amer) 164 D, Glucose 161 H D, Calcium 8.5, Total Bilirubin 0.4, AST 47 D, ALT 49, Alkaline Phosphatase 86, Troponin I < 0.01, Total Protein 5.8 L, Albumin 3.3 L D, Globulin 2.5, Albumin/Globulin Ratio 1.3 09/28/23 05:36: Sodium 137, Potassium 3.5, Chloride 109 H, Carbon Dioxide 24, Anion Gap 7.5, BUN 14, Creatinine 0.70, Estimated Creat Clear 102, Estimated GFR 113, Est GFR ( Amer) 137, Glucose 131 H, Calcium 8.4, Magnesium 1.4 L, Troponin I < 0.01, Triglycerides 161 H, Cholesterol 136 L, LDL Cholesterol Direct 83.46 L, VLDL Cholesterol 32, HDL Cholesterol 23 L, Cholesterol/HDL Ratio 5.9 H 09/28/23 06:14: POC Glucose 129 H 09/28/23 11:17: POC Glucose 152 H I & O for Last 24 hours: Intake & Output 09/25/23 09/26/23 09/27/23 09/28/23 23:59 23:59 23:59 23:59 Intake Total 400 / 400 360 / 360 Output Total 100 / 100 Balance 400 / 400 260 / 260 Weight 98.146 kg 98.974 kg Constitutional Constitutional: no acute distress *Routine HEENT Exam Head: Present normocephalic Eye: Present EOMI ENT: Present mucous membranes moist *Routine Neck Exam Neck: Present supple and full ROM *Routine Respiratory Exam Respiratory: Present CT
[2023-09-28 16:00] VITALS: PULSE 85
== END 2023-09-28 17:06 | disposition home or self-care (01) ==
LOC: ER 15:04 → CATHLAB 15:11 → 2ND 15:50
PROVIDERS: Internal Medicine; Nurse Practitioner Acute Care; Admitting Provider Internal Medicine; Emergency Provider Emergency Medicine; PCP Family Medicine; Visit Provider Internal Medicine
DX: R55 Syncope and collapse (principal); I25.110 Atherosclerotic heart disease of native coronary artery with unstable angina pectoris; E78.2 Mixed hyperlipidemia; I10 Essential (primary) hypertension; E11.9 Type 2 diabetes mellitus without complications; K21.9 Gastro-esophageal reflux disease without esophagitis; J44.9 Chronic obstructive pulmonary disease, unspecified; I45.2 Bifascicular block; Z95.5 Presence of coronary angioplasty implant and graft; F17.210 Nicotine dependence, cigarettes, uncomplicated; Z79.899 Other long term (current) drug therapy; Z79.84 Long term (current) use of oral hypoglycemic drugs
CPT/HCPCS: 36415; 70450; 70496; 70498; 71045; 71275; 80048; 80053; 80061; 82962; 83735; 83880; 84484; 85025; 85610; 85730; 93005; 93270; 93306; 93458; 97161; 97165; 99152; 99291; C1725; C1769; G0378; J1644; J1885; J2250; J2270; J3010; J7030; Q9967

== ENCOUNTER 2024-01-16 12:34 | Observation (INO) | payer MEDICARE, SELFPAY ==
[2024-01-16] VITALS (14 sets, daily range): BP systolic 111–161; BP diastolic 78–106; PULSE 80–126; RESP 16–25; TEMP 36.7–36.9; O2SAT 94–99; BMI 29.4; BMI 29.7
--- NOTE | 2024-01-16 12:37 | ECG_ITS ---
APPROVED REPORT Exam: Resting ECG HR:122 bpm ECG Measurements Heart Rate 122 AXES FL 145 P 22 QRSd 129 QRS -72 QT 326 T 58 QTc 399 Conclusion SINUS TACHYCARDIA WITH OCCASIONAL SUPRAVENTRICULAR PREMATURE COMPLEXES RIGHT BUNDLE BRANCH BLOCK [120+ ms QRS DURATION, UPRIGHT V1, 40+ ms S IN I/aVL/V4/V5/V6] LEFT ANTERIOR FASCICULAR BLOCK [QRS AXIS <= -45, QR IN I, RS IN II] MINIMAL VOLTAGE CRITERIA FOR LVH, CONSIDER NORMAL VARIANT [MEETS CRITERIA IN ONE OF: R(aVL), S(V1), R(V5), R(V5/V6)+S(V1)] ABNORMAL ECG UNCONFIRMED REPORT Electronically signed by : LISA TAYLOR, 01/17/2024 06:43:13
--- NOTE | 2024-01-16 12:47 | PC.NURSE ---
Dr. Lennon at [facility]
--- NOTE | 2024-01-16 12:50 | CT_ITS ---
FINAL REPORT TECHNIQUE: Then section axial CT images of the chest were obtained with contrast. Three-D reformatted images were also obtained.This study was performed with techniques to keep radiation doses as low as reasonably achievable (ALARA). Individualized dose reduction techniques using automated exposure control or adjustment of mA and/or kV according to the patient''s size were employed. CLINICAL HISTORY: Precordial chest pain COMPARISON: 09/27/2023 FINDINGS: There is motion on many of the images which decreases the sensitivity of the exam. There is no evidence of pulmonary embolism. There is no evidence of thoracic aortic aneurysm or dissection. There is no evidence of mediastinal or hilar mass or adenopathy. There is no evidence of pulmonary mass or suspicious nodule. There is mild emphysema and mild scarring. No localized inflammatory process is seen within the lungs. Limited images of the upper abdomen demonstrate postoperative changes from cholecystectomy. IMPRESSION: No evidence of pulmonary embolism. No mass or localized inflammatory process. Reviewed, Interpreted and Dictated by Donnell Talbert III, MD Transcribed by Lila Ford Authenticated and [facility]
--- NOTE | 2024-01-16 12:50 | XR_ITS ---
FINAL REPORT CLINICAL HISTORY: Precordial chest pain FINDINGS: A single portable view of the chest was obtained. The heart size and pulmonary vascularity are within normal limits. The mediastinum is within normal limits. There is mild atelectasis or scarring in the right lung base. The bony thorax is intact. IMPRESSION: Mild atelectasis or scarring in the right lung base. Reviewed, Interpreted and Dictated by Donnell Talbert III, MD Transcribed by Lila Ford Authenticated and [facility]
[2024-01-16 12:56] LABS: Basophils # 0.2 K/mm3 (0-0.2); Basophils % 1.7 % (0.1-2.0); Eosinophils # 0.2 K/mm3 (0.0-0.4); Eosinophils % 1.6 % (0.1-12.0); Hematocrit 50.3 % (42.0-52.0); Hemoglobin 17.2 g/dL (14.1-18.0); Lymphocytes # 5.2 K/mm3 (0.7-4.5); Lymphocytes % 38.8 % (10-50); Mean Corpuscular HGB Conc 34.2 g/dL (31.8-35.4); Mean Corpuscular Hemoglobin 31.5 pg (27.0-31.2); Mean Corpuscular Volume 92.2 fl (80-94); Mean Platelet Volume 8.7 fl (7.4-10.4); Monocytes # 0.7 K/mm3 (0.1-1.0); Monocytes % 5.1 % (1.7-9.3); Neutrophils # 7.1 K/mm3 (1.8-7.8); Neutrophils % 52.8 % (37.0-80.0); Platelet Count 266 K/mm3 (142-424); Red Blood Count 5.46 M/mm3 (4.60-6.20); Red Cell Distribution Width 13.9 % (11.5-17.5); White Blood Count 13.4 K/mm3 (4.8-10.8)
[2024-01-16 12:57] LABS: Albumin Level 4.6 g/dl (3.5-5.0); Chloride 100 mmol/L (98-107); Potassium 4.8 mmoL/L (3.5-5.1); Sodium 133 mmol/L (136-145)
[2024-01-16 13:00] LABS: Alanine Aminotransferase 64 U/L (12-78); Albumin/Globulin Ratio 1.6 (1.1-1.8); Alkaline Phosphatase 150 U/L (38-126); Anion Gap 15.8 mEq/L (5-15); Aspartate Amino Transferase 60 U/L (17-59); Bilirubin,Total 0.7 mg/dl (0.2-1.3); Blood Urea Nitrogen 23 mg/dl (9-20); Calcium 10.3 mg/dl (8.4-10.2); Carbon Dioxide 22 mmol/L (22.0-30.0); Estimated Glomerular Filt Rate 97 ml/min (>60); GFR (African American) 117 ML/MIN (>60); Globulin 2.9 g/dL (1.3-3.2); Total Protein,Serum 7.5 g/dl (6.3-8.2)
--- NOTE | 2024-01-16 13:01 | [facility].EDGENADL ---
Discharge Plan Disposition Patient Disposition: Admitted Chief Complaint: Chest Pain Clinical Impressions Clinical Impression: Sepsis, Acute hyperglycemia Discharge ED Provider: Harvey Mulligan General Adult HPI <Benedict Lennon MD - Last Filed: 01/16/24 15:48> General Chief complaint: Chest Pain Stated complaint: Chest Pain Time Seen by Provider: 01/16/24 12:45 Source of Information: Patient Limitations: No Limitations History of Present Illness HPI narrative: This is a 63-year-old male with a past medical history of hypertension, type 2 diabetes, CAD status post stenting x 3, hyperlipidemia Who presents with chest pain and hyperglycemia. States that he began to have central chest pressure that began at about 9 AM yesterday. Has been persistent since then. States that he has been very thirsty and short of breath. Reports blood sugar in the 400s. Denies nausea and vomiting. Related Data Home Medications ?Medication ?Instructions ?Recorded ?Confirmed atorvastatin 80 mg tablet 80 mg PO HS 10/15/21 09/27/23 glipizide 10 mg tablet 10 mg PO DAILY 10/15/21 09/27/23 omeprazole 40 mg capsule,delayed 40 mg PO DAILY 10/15/21 09/27/23 release ropinirole 0.5 mg tablet 0.5 mg PO HS 10/15/21 09/27/23 sertraline 50 mg tablet 50 mg PO HS 10/15/21 09/27/23 amitriptyline 50 mg tablet 50 mg PO HS 09/27/23 09/27/23 tamsulosin 0.4 mg capsule 0.4 mg PO HS 09/27/23 09/27/23 Previous Rx's ?Medication ?Instructions ?Recorded isosorbide mononitrate 30 mg 30 mg PO DAILY #90 tabs 09/28/23 tablet,extended release 24 hr metoprolol succinate 25 mg 25 mg PO DAILY #90 tabs 09/28/23 tablet,extended release 24 hr ranolazine 500 mg tablet,extended 500 mg PO BID #90 tabs 09/28/23 release,12 hr Allergies Allergy/AdvReac Type Severity Reaction Status Date / Time bee venom protein (honey bee) Allergy Verified 09/27/23 16:32 PFSH <Benedict Lennon MD - Last Filed: 01/16/24 15:48> PFS Disclaimer: The information contained in this section may have been updated after the patient was seen, as this information can be updated by other users. Medical History (Updated 01/16/24 @ 17:27 by Harvey Mulligan MD) RBBB (right bundle branch block with left anterior fascicular block) Syncope Dizziness Angina pectoris Coronary artery disease Cystic lung, congenital History of pneumothorax Atrial fibrillation and flutter Presence of stent in LAD coronary artery Pericardial effusion without cardiac tamponade PNA (pneumonia) Diabetes GERD (gastroesophageal reflux disease) Pericarditis Angina at rest History of heart attack Hyperlipidemia Palpitations Hypertension Heart murmur Arrhythmia History of left heart catheterization (LHC) Surgical History Hx of heart artery stent Previous back surgery Family History Other Family history of COPD (chronic obstructive pulmonary disease) Family history of hyperlipidemia Family history of hypertension Family history of myocardial infarction Family history of stroke Lung cancer Social History (Updated 01/16/24 @ 17:20 by Katarzyna Mathews, BEUA) Smoking Status: Current every day smoker alcohol intake: current current occupational status: previously employed and disabled Travel in the last 8 weeks: None Other Medical History Have you received the Flu Vaccine for this season: No Have you received the Pneumonia Vaccine: No <Benedict Lennon MD - Last Filed: 01/16/24 15:48> ROS Obtained: Yes All systems reviewed & no additional complaints except as documented Physical Exam <Benedict Lennon MD - Last Filed: 01/16/24 15:48> General General appearance: alert Comment: Ill-appearing Eye Eye exam: Present normal appearance, PERRL and EOMI Respiratory Respiratory exam: Present normal lung sounds bilaterally; Absent respiratory distress Cardiovascular Cardiovascular exam: Present normal rhythm and tachycardia Abdominal Exam Abdominal exam: Present soft and distention; Absent tenderness, guarding or rebound Extremities Exam Extremities exam: Present normal inspection Neurological Exam Neurological exam: Present alert and oriented X3 Skin Skin exam: Present warm and dry Medical Decision Making <Benedict Lennon MD - Last Filed: 01/16/24 15:48> Medical Records Medical records reviewed: Yes I reviewed the patient's medical records. Screening: Per USPSTF and CDC recommendations, given the prevalence of disease in our region, it is our hospital?s policy to screen for HIV and viral Hepatitis for all patients aged 18 and over and those with ongoing risk factors. MR Comment: Reviewed hospital medicine discharge summary from 09/28/2023 notable for admission with unstable angina. Patient underwent cardiac catheterization with no stents placed. Moshe Inquiry Pt receiving controlled substance: No Vital Signs: 01/16/24 12:34 01/16/24 13:00 01/16/24 13:28 Temperature 98.4 F Temperature Source Oral Pulse Rate 114 H 80 Pulse Rate [Apical] 126 H Respiratory Rate 18 22 Blood Pressure 142/95 H Blood Pressure [Left Arm] 143/106 H Blood Pressure Mean Blood Pressure Mean [Left Arm] 118 Blood Pressure Source [Left Arm] Automatic Cuff Blood Pressure Position [Left Arm] Sitting 02 Sat by Pulse Oximetry 96 95 Oxygen Delivery Method Room Air Room Air 01/16/24 14:00 01/16/24 14:30 01/16/24 15:00 Temperature Temperature Source Pulse Rate 106 H 108 H 112 H Pulse Rate [Apical] Respiratory Rate 23 18 22 Blood Pressure 111/79 120/95 H 161/100 H Blood Pressure [Left Arm] Blood Pressure Mean 102 120 Blood Pressure Mean [Left Arm] Blood Pressure Source [Left Arm] Blood Pressure Position [Left Arm] 02 Sat by Pulse Oximetry 94 L 95 97 Oxygen Delivery Method Room Air 01/16/24 15:30 01/16/24 16:00 01/16/24 16:30 Temperature Temperature Source Pulse Rate 98 H 108 H 103 H Pulse Rate [Apical] Respiratory Rate 20 18 18 Blood Pressure 151/97 H 146/100 H 132/99 H Blood Pressure [Left Arm] Blood Pressure Mean 115 113 110 Blood Pressure Mean [Left Arm] Blood Pressure Source [Left Arm] Blood Pressure Position [Left Arm] 02 Sat by Pulse Oximetry 98 94 L 94 L Oxygen Delivery Method 01/16/24 17:00 Temperature Temperature Source Pulse Rate 117 H Pulse Rate [Apical] Respiratory Rate 17 Blood Pressure 141/105 H Blood Pressure [Left Arm] Blood Pressure Mean 111 Blood Pressure Mean [Left Arm] Blood Pressure Source [Left Arm] Blood Pressure Position [Left Arm] 02 Sat by Pulse Oximetry 96 Oxygen Delivery Method Lab Data Lab Results 01/16/24 12:41: WBC 13.4 H, RBC 5.46, Hgb 17.2, Hct 50.3, MCV 92.2, MCH 31.5 H, MCHC 34.2, RDW 13.9, Plt Count 266, MPV 8.7, Neut % (Auto) 52.8, Lymph % (Auto) 38.8, Kimball % (Auto) 5.1, Eos % (Auto) 1.6, Baso % (Auto) 1.7, Neut # (Auto) 7.1, Lymph # (Auto) 5.2 H, Kimball # (Auto) 0.7, Eos # (Auto) 0.2, Baso # (Auto) 0.2, Sodium 133 L, Potassium 4.8, Chloride 100, Carbon Dioxide 22, Anion Gap 15.8 H, BUN 23 H, Creatinine 0.80, Estimated GFR 97, Est GFR ( Amer) 117, Glucose 498 H*, Calcium 10.3 H, Total Bilirubin 0.7, AST 60 H, ALT 64, Alkaline Phosphatase 150 H, Troponin I < 0.01, NT-Pro-B Natriuret Pep 27.3, Total Protein 7.5 D, Albumin 4.6, Globulin 2.9, Albumin/Globulin Ratio 1.6, HIV 1&2 Antibody Rapid Nonreactive 01/16/24 15:15: Troponin I < 0.01 01/16/24 16:12: VBG pH 7.38, VBG pCO2 36.5, VBG pO2 47.2 H, VBG HCO3 21.2 L, VBG Total CO2 22.3 L, VBG O2 Saturation 82.6 H, VBG Base Excess -4.0 L, VBG Lactic Acid 4.7 H 01/16/24 16:15: Lactate 1.9 01/16/24 16:25: SARS-CoV-2 (PCR) Not detected, Influenza A Untype (PCR) Not detected, Influenza Type B (PCR) Not detected 01/16/24 12:41 01/16/24 12:41 Orders (Tests/Meds): ED MEDICATIONS Generic Name Dose Route Start Last Admin Trade Name Freq PRN Reason Stop Dose Admin Acetaminophen 650 mg 01/16/24 16:50 Acetaminophen 325mg Tab PO 02/15/24 16:49 Q4HP PRN Fever or Mild Pain (1-3) Enoxaparin Sodium 40 mg 01/17/24 09:00 Enoxaparin 40mg/0.4ml Syringe SUBCUT 02/16/24 08:59 DAILY [facility] Sodium Chloride 2,190 mls @ 1,095 mls/hr 01/16/24 16:19 01/16/24 16:31 Sod Chlor 0.9% 1000ml Bag 30 ml/kg infuse over 2 hr (2190 ml) 01/16/24 18:18 1,095 mls/hr IV Administration .Q2H ONE Sodium Chloride 1,000 mls @ 75 mls/hr 01/16/24 17:00 Sod Chlor 0.9% 1000ml Bag IV 02/15/24 16:59 .[id number] [facility] Insulin Glargine 20 unit 01/16/24 17:00 Insulin Glargine 100 Units/Ml 10ml Vial SUBCUT 02/15/24 16:59 HS [facility] Insulin Human Lispro 0 unit 01/16/24 21:00 Humalog 100 Units/Ml 10ml Vial (Ssi) SUBCUT 02/15/24 20:59 ACHS [facility] Protocol Ondansetron HCl 4 mg 01/16/24 16:50 Ondansetron 4mg/2ml Vial IV 02/15/24 16:49 Q8HP PRN Nausea Sodium Chloride 10 ml 01/16/24 13:34 01/16/24 13:36 Sodium Chloride 0.9% 10ml Syr (Rad Only) IV 02/15/24 13:33 10 ml NEEDED PRN Administration Maintain IV Site Discontinued Medications Generic Name Dose Route Start Last Admin Trade Name Freq PRN Reason Stop Dose Admin Hydromorphone HCl 0.5 mg 01/16/24 14:21 01/16/24 14:30 Hydromorphone 2mg/Ml Syringe IV 01/16/24 14:22 0.5 mg ONCE ONE Administration Hydromorphone HCl 0.5 mg 01/16/24 16:25 01/16/24 16:33 Hydromorphone 2mg/Ml Syringe IV 01/16/24 16:26 0.5 mg ONCE ONE Administration Lactated Ringer's 500 mls @ 999 mls/hr 01/16/24 12:50 01/16/24 13:03 Lactated Ringer's 500ml IV 01/16/24 13:20 999 mls/hr .Q31M ONE Administration Lactated Ringer's 500 mls @ 999 mls/hr 01/16/24 15:03 01/16/24 15:29 Lactated Ringer's 500ml IV 01/16/24 15:33 999 mls/hr .Q31M ONE Administration Cefepime HCl 2 gm/ Sodium 100 mls @ 200 mls/hr 01/16/24 16:24 01/16/24 16:32 Chloride IV 01/16/24 16:53 200 mls/hr ONCE ONE Administration Insulin Human Lispro 10 unit 01/16/24 15:04 01/16/24 15:29 Humalog 100 Units/Ml 10ml Vial (Ssi) SUBCUT 01/16/24 15:05 10 unit ONCE ONE Administration Iopamidol 70 ml 01/16/24 13:34 01/16/24 13:36 Iopamidol-370 (76%);100ml Bottle IV 01/16/24 13:35 70 ml ONCE ONE Administration Nitroglycerin 0.4 mg 01/16/24 12:50 01/16/24 13:03 Nitroglycerin 0.4mg Sl Tablet SL 01/16/24 12:51 0.4 mg ONCE ONE Administration Sodium Chloride 50 ml 01/16/24 13:34 01/16/24 13:36 0.9 % Sodium Chloride 50 Ml Vial IV 01/16/24 13:35 50 ml ONCE ONE Administration ORDERS Category Date Time Status CTA Chest [CT angio chest PE protocol] Stat Cat Scan 01/16/24 12:50 Completed Chest XR -- portable [XR chest portable] Stat Exams 01/16/24 12:50 Completed BNP [NT Pro Brain Natriuretic Pep.] Stat Lab 01/16/24 12:41 Completed CBC w/Auto Diff [Complete Blood Count Auto Diff] Stat Lab 01/16/24 12:41 Completed CMP [Comprehensive Metabolic Panel] Stat Lab 01/16/24 12:41 Completed Complete Blood Count Auto Diff AMLAB Lab 01/17/24 06:00 Ordered Complete Blood Count Auto Diff AMLAB Lab 01/18/24 06:00 Ordered Complete Blood Count Auto Diff AMLAB Lab 01/19/24 06:00 Ordered Complete Blood Count Auto Diff AMLAB Lab 01/20/24 06:00 Ordered Complete Blood Count Auto Diff AMLAB Lab 01/21/24 06:00 Ordered Comprehensive Metabolic Panel AMLAB Lab 01/17/24 06:00 Ordered Comprehensive Metabolic Panel AMLAB Lab 01/18/24 06:00 Ordered Comprehensive Metabolic Panel AMLAB Lab 01/19/24 06:00 Ordered Comprehensive Metabolic Panel AMLAB Lab 01/20/24 06:00 Ordered Comprehensive Metabolic Panel AMLAB Lab 01/21/24 06:00 Ordered HIV (1&2) Antibody Rapid Stat Lab 01/16/24 12:41 Completed Hep C Ab with Reflex to RNA Stat Lab 01/16/24 12:41 Received Lactic Acid Stat Lab 01/16/24 16:15 Completed Lipid Panel AMLAB Lab 01/17/24 06:00 Ordered Magnesium AMLAB Lab 01/17/24 06:00 Ordered Magnesium AMLAB Lab 01/18/24 06:00 Ordered Magnesium AMLAB Lab 01/19/24 06:00 Ordered Magnesium AMLAB Lab 01/20/24 06:00 Ordered Magnesium AMLAB Lab 01/21/24 06:00 Ordered Rapid PCR Covid and Flu A/B Stat Lab 01/16/24 16:25 Completed Troponin I Q3H Lab 01/16/24 15:15 Completed Troponin I Q3H Lab 01/16/24 19:00 Ordered Troponin I Stat Lab 01/16/24 12:41 Completed UA [Urinalysis and Microscopic] Stat Lab 01/16/24 16:40 Received Blood Culture Stat Micro 01/16/24 16:10 Received VBG [Venous Blood Gas] Stat RT 01/16/24 16:12 Completed ECG Data Tracing #1: I reviewed this ECG and interpreted as documented below: Sinus tachycardia at a rate of 122, right bundle branch block, QTc 399, no STEMI Medical Decision Narrative: In summary, this 63-year-old male with a past medical history of CAD status post stenting x 3, hypertension, hyperlipidemia, type 2 diabetes presents to the emergency department today with chest pain and hyperglycemia. On initial evaluation patient is ill-appearing, tachycardic to the 120s, normotensive. Differential diagnosis includes but is not limited to ACS, PE, aortic dissection, pneumonia, pneumothorax, DKA. Based on these concerns, I ordered CBC, CMP, troponin, EKG, CT PE, chest x-ray. ECG personally interpreted as noted above. Patient received 500 cc of lactated Ringer's and SL nitro for treatment. Labs personally reviewed demonstrate leukocytosis with white blood cell count of 13.4 (similar to previous), mild hyponatremia at 133, normal renal function, glucose of 498 with mildly elevated anion gap at 15.8 and normal bicarb, undetectable initial troponin, normal BNP. XR personally interpreted demonstrates no acute cardiopulmonary pathology. CT imaging personally interpreted demonstrates no pulmonary embolism or other acute cardiopulmonary pathology. On reassessment patient complaining of persistent chest pain and tachycardia to the 100s to 110s. Administered Dilaudid and additional 500 cc of lactated Ringer's, and 10 units of subcutaneous regular insulin. At the time of shift change, patient second troponin and reevaluation was pending. Care handed off to Dr. Mulligan. <Harvey Mulligan MD - Last Filed: 01/16/24 17:27> Vital Signs: 01/16/24 12:34 01/16/24 13:00 01/16/24 13:28 Temperature 98.4 F Temperature Source Oral Pulse Rate 114 H 80 Pulse Rate [Apical] 126 H Respiratory Rate 18 22 Blood Pressure 142/95 H Blood Pressure [Left Arm] 143/106 H Blood Pressure Mean Blood Pressure Mean [Left Arm] 118 Blood Pressure Source [Left Arm] Automatic Cuff Blood Pressure Position [Left Arm] Sitting 02 Sat by Pulse Oximetry 96 95 Oxygen Delivery Method Room Air Room Air 01/16/24 14:00 01/16/24 14:30 01/16/24 15:00 Temperature Temperature Source Pulse Rate 106 H 108 H 112 H Pulse Rate [Apical] Respiratory Rate 23 18 22 Blood Pressure 111/79 120/95 H 161/100 H Blood Pressure [Left Arm] Blood Pressure Mean 102 120 Blood Pressure Mean [Left Arm] Blood Pressure Source [Left Arm] Blood Pressure Position [Left Arm] 02 Sat by Pulse Oximetry 94 L 95 97 Oxygen Delivery Method Room Air 01/16/24 15:30 01/16/24 16:00 01/16/24 16:30 Temperature Temperature Source Pulse Rate 98 H 108 H 103 H Pulse Rate [Apical] Respiratory Rate 20 18 18 Blood Pressure 151/97 H 146/100 H 132/99 H Blood Pressure [Left Arm] Blood Pressure Mean 115 113 110 Blood Pressure Mean [Left Arm] Blood Pressure Source [Left Arm] Blood Pressure Position [Left Arm] 02 Sat by Pulse Oximetry 98 94 L 94 L Oxygen Delivery Method 01/16/24 17:00 Temperature Temperature Source Pulse Rate 117 H Pulse Rate [Apical] Respiratory Rate 17 Blood Pressure 141/105 H Blood Pressure [Left Arm] Blood Pressure Mean 111 Blood Pressure Mean [Left Arm] Blood Pressure Source [Left Arm] Blood Pressure Position [Left Arm] 02 Sat by Pulse Oximetry 96 Oxygen Delivery Method Lab Data Lab Results 01/16/24 12:41: WBC 13.4 H, RBC 5.46, Hgb 17.2, Hct 50.3, MCV 92.2, MCH 31.5 H, MCHC 34.2, RDW 13.9, Plt Count 266, MPV 8.7, Neut % (Auto) 52.8, Lymph % (Auto) 38.8, Kimball % (Auto) 5.1, Eos % (Auto) 1.6, Baso % (Auto) 1.7, Neut # (Auto) 7.1, Lymph # (Auto) 5.2 H, Kimball # (Auto) 0.7, Eos # (Auto) 0.2, Baso # (Auto) 0.2, Sodium 133 L, Potassium 4.8, Chloride 100, Carbon Dioxide 22, Anion Gap 15.8 H, BUN 23 H, Creatinine 0.80, Estimated GFR 97, Est GFR ( Amer) 117, Glucose 498 H*, Calcium 10.3 H, Total Bilirubin 0.7, AST 60 H, ALT 64, Alkaline Phosphatase 150 H, Troponin I < 0.01, NT-Pro-B Natriuret Pep 27.3, Total Protein 7.5 D, Albumin 4.6, Globulin 2.9, Albumin/Globulin Ratio 1.6, HIV 1&2 Antibody Rapid Nonreactive 01/16/24 15:15: Troponin I < 0.01 01/16/24 16:12: VBG pH 7.38, VBG pCO2 36.5, VBG pO2 47.2 H, VBG HCO3 21.2 L, VBG Total CO2 22.3 L, VBG O2 Saturation 82.6 H, VBG Base Excess -4.0 L, VBG Lactic Acid 4.7 H 01/16/24 16:15: Lactate 1.9 01/16/24 16:25: SARS-CoV-2 (PCR) Not detected, Influenza A Untype (PCR) Not detected, Influenza Type B (PCR) Not detected Orders (Tests/Meds): ED MEDICATIONS Generic Name Dose Route Start Last Admin Trade Name Freq PRN Reason Stop Dose Admin Acetaminophen 650 mg 01/16/24 16:50 Acetaminophen 325mg Tab PO 02/15/24 16:49 Q4HP PRN Fever or Mild Pain (1-3) Enoxaparin Sodium 40 mg 01/17/24 09:00 Enoxaparin 40mg/0.4ml Syringe SUBCUT 02/16/24 08:59 DAILY [facility] Sodium Chloride 2,190 mls @ 1,095 mls/hr 01/16/24 16:19 01/16/24 16:31 Sod Chlor 0.9% 1000ml Bag 30 ml/kg infuse over 2 hr (2190 ml) 01/16/24 18:18 1,095 mls/hr IV Administration .Q2H ONE Sodium Chloride 1,000 mls @ 75 mls/hr 01/16/24 17:00 Sod Chlor 0.9% 1000ml Bag IV 02/15/24 16:59 .[id number] [facility] Insulin Glargine 20 unit 01/16/24 17:00 Insulin Glargine 100 Units/Ml 10ml Vial SUBCUT 02/15/24 16:59 HS [facility] Insulin Human Lispro 0 unit 01/16/24 21:00 Humalog 100 Units/Ml 10ml Vial (Ssi) SUBCUT 02/15/24 20:59 ACHS [facility] Protocol Ondansetron HCl 4 mg 01/16/24 16:50 Ondansetron 4mg/2ml Vial IV 02/15/24 16:49 Q8HP PRN Nausea Sodium Chloride 10 ml 01/16/24 13:34 01/16/24 13:36 Sodium Chloride 0.9% 10ml Syr (Rad Only) IV 02/15/24 13:33 10 ml NEEDED PRN Administration Maintain IV Site Discontinued Medications Generic Name Dose Route Start Last Admin Trade Name Freq PRN Reason Stop Dose Admin Hydromorphone HCl 0.5 mg 01/16/24 14:21 01/16/24 14:30 Hydromorphone 2mg/Ml Syringe IV 01/16/24 14:22 0.5 mg ONCE ONE Administration Hydromorphone HCl 0.5 mg 01/16/24 16:25 01/16/24 16:33 Hydromorphone 2mg/Ml Syringe IV 01/16/24 16:26 0.5 mg ONCE ONE Administration Lactated Ringer's 500 mls @ 999 mls/hr 01/16/24 12:50 01/16/24 13:03 Lactated Ringer's 500ml IV 01/16/24 13:20 999 mls/hr .Q31M ONE Administration Lactated Ringer's 500 mls @ 999 mls/hr 01/16/24 15:03 01/16/24 15:29 Lactated Ringer's 500ml IV 01/16/24 15:33 999 mls/hr .Q31M ONE Administration Cefepime HCl 2 gm/ Sodium 100 mls @ 200 mls/hr 01/16/24 16:24 01/16/24 16:32 Chloride IV 01/16/24 16:53 200 mls/hr ONCE ONE Administration Insulin Human Lispro 10 unit 01/16/24 15:04 01/16/24 15:29 Humalog 100 Units/Ml 10ml Vial (Ssi) SUBCUT 01/16/24 15:05 10 unit ONCE ONE Administration Iopamidol 70 ml 01/16/24 13:34 01/16/24 13:36 Iopamidol-370 (76%);100ml Bottle IV 01/16/24 13:35 70 ml ONCE ONE Administration Nitroglycerin 0.4 mg 01/16/24 12:50 01/16/24 13:03 Nitroglycerin 0.4mg Sl Tablet SL 01/16/24 12:51 0.4 mg ONCE ONE Administration Sodium Chloride 50 ml 01/16/24 13:34 01/16/24 13:36 0.9 % Sodium Chloride 50 Ml Vial IV 01/16/24 13:35 50 ml ONCE ONE Administration ORDERS Category Date Time Status CTA Chest [CT angio chest PE protocol] Stat Cat Scan 01/16/24 12:50 Completed Chest XR -- portable [XR chest portable] Stat Exams 01/16/24 12:50 Completed BNP [NT Pro Brain Natriuretic Pep.] Stat Lab 01/16/24 12:41 Completed CBC w/Auto Diff [Complete Blood Count Auto Diff] Stat Lab 01/16/24 12:41 Completed CMP [Comprehensive Metabolic Panel] Stat Lab 01/16/24 12:41 Completed Complete Blood Count Auto Diff AMLAB Lab 01/17/24 06:00 Ordered Complete Blood Count Auto Diff AMLAB Lab 01/18/24 06:00 Ordered Complete Blood Count Auto Diff AMLAB Lab 01/19/24 06:00 Ordered Complete Blood Count Auto Diff AMLAB Lab 01/20/24 06:00 Ordered Complete Blood Count Auto Diff AMLAB Lab 01/21/24 06:00 Ordered Comprehensive Metabolic Panel AMLAB Lab 01/17/24 06:00 Ordered Comprehensive Metabolic Panel AMLAB Lab 01/18/24 06:00 Ordered Comprehensive Metabolic Panel AMLAB Lab 01/19/24 06:00 Ordered Comprehensive Metabolic Panel AMLAB Lab 01/20/24 06:00 Ordered Comprehensive Metabolic Panel AMLAB Lab 01/21/24 06:00 Ordered HIV (1&2) Antibody Rapid Stat Lab 01/16/24 12:41 Completed Hep C Ab with Reflex to RNA Stat Lab 01/16/24 12:41 Received Lactic Acid Stat Lab 01/16/24 16:15 Completed Lipid Panel AMLAB Lab 01/17/24 06:00 Ordered Magnesium AMLAB Lab 01/17/24 06:00 Ordered Magnesium AMLAB Lab 01/18/24 06:00 Ordered Magnesium AMLAB Lab 01/19/24 06:00 Ordered Magnesium AMLAB Lab 01/20/24 06:00 Ordered Magnesium AMLAB Lab 01/21/24 06:00 Ordered Rapid PCR Covid and Flu A/B Stat Lab 01/16/24 16:25 Completed Troponin I Q3H Lab 01/16/24 15:15 Completed Troponin I Q3H Lab 01/16/24 19:00 Ordered Troponin I Stat Lab 01/16/24 12:41 Completed UA [Urinalysis and Microscopic] Stat Lab 01/16/24 16:40 Received Blood Culture Stat Micro 01/16/24 16:10 Received VBG [Venous Blood Gas] Stat RT 01/16/24 16:12 Completed Medical Decision Narrative: In summary, this 63-year-old male with a past medical history of CAD status post stenting x 3, hypertension, hyperlipidemia, type 2 diabetes presents to the emergency department today with chest pain and hyperglycemia. On initial evaluation patient is ill-appearing, tachycardic to the 120s, normotensive. Differential diagnosis includes but is not limited to ACS, PE, aortic dissection, pneumonia, pneumothorax, DKA. Based on these concerns, I ordered CBC, CMP, troponin, EKG, CT PE, chest x-ray. ECG personally interpreted as noted above. Patient received 500 cc of lactated Ringer's and SL nitro for treatment. Labs personally reviewed demonstrate leukocytosis with white blood cell count of 13.4 (similar to previous), mild hyponatremia at 133, normal renal function, glucose of 498 with mildly elevated anion gap at 15.8 and normal bicarb, undetectable initial troponin, normal BNP. XR personally interpreted demonstrates no acute cardiopulmonary pathology. CT imaging personally interpreted demonstrates no pulmonary embolism or other acute cardiopulmonary pathology. On reassessment patient complaining of persistent chest pain and tachycardia to the 100s to 110s. Administered Dilaudid and additional 500 cc of lactated Ringer's, and 10 units of subcutaneous regular insulin. At the time of shift change, patient second troponin and reevaluation was pending. Care handed off to Dr. Mulligan. Isaak: I assumed primary responsibility for this patient after signout from previous physician. 63-year-old male extensive cardiac medical history, type 2 diabetes presenting with chest pain and hyperglycemia. No acute distress on my evaluation, patient is persistently tachycardic around 100 to 105 bpm. Shortly after my arrival, patient had increased heart rate with what appeared to be a rhythm change on the monitor anywhere from 115 to 130 bpm. Repeat EKG was obtained. On independent rotation, appears to be sinus tachycardia with right bundle branch block morphology. MO 165, QRS 141, QTc 425. Rest of sepsis bolus was administered, blood cultures and lactic drawn. UA ordered. Lactate 4.7 on VBG. 2 g cefepime was administered. Hospital medicine was contacted and case was discussed. Because patient high risk for clinical decompensation, deemed appropriate for inpatient admission. Results were relayed to patient who voiced understanding and patient was agreeable to inpatient admission and management. Patient was admitted to the hospital for further definitive management. Critical Care <Benedict Lennon MD - Last Filed: 01/16/24 15:48> Critical Care Time Critical Care Time: No <Harvey Mulligan MD - Last Filed: 01/16/24 17:27> Critical Care Time Critical Care Time: Yes (ID) Attestation: On 01/16/24, the high probability of a clinically significant, sudden or life threatening deterioration of the following system(s) required my full and direct attention, intervention and personal management. The time I documented below is in addition to time spent performing reported procedures but includes the following listed in this critical care notation. Total Time Total Critical Care Time: 35
[2024-01-16] MEDS: NITROGLYCERIN 0.4MG SL TABLET 0.4 MG SL (13:03)
[2024-01-16] MEDS: RINGERS SOLUTION,LACTATED 500 ML 999 ML IV ×2 (13:03→15:29)
--- NOTE | 2024-01-16 13:04 | PC.NURSE ---
CRITICAL GLUCOSE 498, PT NAME AND R/V. DR REDDING NOTIFIED
[2024-01-16 13:05] LABS: Glucose 498 mg/dl (74-100)
[2024-01-16 13:10] LABS: NT Pro Brain Natriuretic Pep. 27.3 pg/mL (0-125)
[2024-01-16 13:13] LABS: Troponin I < 0.01 ng/ml (0.00-0.034)
--- NOTE | 2024-01-16 13:20 | PC.NURSE ---
PT to CT via stretcher
[2024-01-16] MEDS: SODIUM CHLORIDE 0.9% 10ML SYR (RAD ONLY) 10 ML IV (13:36)
[2024-01-16] MEDS: IOPAMIDOL-370 (76%);100ML BOTTLE 70 ML IV (13:36)
[2024-01-16] MEDS: 0.9 % SODIUM CHLORIDE 50 ML VIAL IV (13:36)
[2024-01-16] MEDS: HYDROMORPHONE 2MG/ML SYRINGE 0.5 MG IV ×2 (14:30→16:33)
[2024-01-16] MEDS: humaLOG 100 UNITS/ML 10ML VIAL (SSI) 10 UNIT SUBCUT (15:29)
[2024-01-16 16:09] LABS: HIV (1&2) Antibody Rapid NONREACTIVE (NONREACTIVE)
[2024-01-16 16:12] LABS: Troponin I < 0.01 ng/ml (0.00-0.034)
--- NOTE | 2024-01-16 16:13 | ECG_ITS ---
APPROVED REPORT Exam: Resting ECG HR:117 bpm ECG Measurements Heart Rate 117 AXES AR 165 P 36 QRSd 141 QRS -77 QT 356 T 64 QTc 425 Conclusion SINUS TACHYCARDIA WITH OCCASIONAL SUPRAVENTRICULAR PREMATURE COMPLEXES RIGHT BUNDLE BRANCH BLOCK [120+ ms QRS DURATION, UPRIGHT V1, 40+ ms S IN I/aVL/V4/V5/V6] LEFT ANTERIOR FASCICULAR BLOCK [QRS AXIS <= -45, QR IN I, RS IN II] ABNORMAL ECG UNCONFIRMED REPORT Electronically signed by : LISA TAYLOR, 01/17/2024 06:45:03
[2024-01-16 16:27] LABS: VBG HCO3 21.2 mmol/L (23-30); VBG Oxygen Saturation 82.6 % (50-70); VBG PCO2 36.5 mmol/L (35-51); VBG PH 7.38 mmol/L (7.31-7.41); VBG PO2 47.2 mmol/L (28-40); VBG Total CO2 22.3 mmol/L (23-27)
[2024-01-16 16:29] LABS: Lactate Venous 4.7 mmol/L (0.4-2.0)
--- NOTE | 2024-01-16 16:29 | PC.NURSE ---
rt called and said lactic vbg was 4.7 dr barcenas aware
[2024-01-16 16:30] LABS: Coronavirus 19, PCR Not Detected (NotDetected); Influenza A, PCR Not Detected (NotDetected); Influenza B, PCR Not Detected (NotDetected)
[2024-01-16] MEDS: 0.9 % SODIUM CHLORIDE 1000ML 2,190 ML 1095 ML IV (16:31)
[2024-01-16] MEDS: CEFEPIME HCL 2 GM in 0.9 % SODIUM CHLORIDE 100 ML IV (16:32)
[2024-01-16 16:45] LABS: Lactic Acid 1.9 mmol/L (0.7-2.1)
[2024-01-16 16:46] LABS: Microscopic, Urine URINE MICROSCOPIC (MICROSCOPIC)
[2024-01-16 16:50] LABS: Appearance,Urine CLEAR (Clear); Bilirubin,Urine Negative (Negative); Blood, Urine Negative (Negative); Color,Urine YELLOW (Yellow); Glucose,Urine (UA) 3+ (Negative); Ketones,Urine Negative (Negative); Leukocyte Esterase,Urine Negative (Negative); Nitrate,Urine Negative (Negative); PH,Urine 6.5 (5.0-8.5); Protein,Urine Negative (Negative); Urobilinogen,Urine 0.2 EU/dl (0.2)
--- NOTE | 2024-01-16 16:50 | P.HP_ITS ---
[facility] Disclaimer: The information contained in this section may have been updated after the patient was seen, as this information can be updated by other users. Medical History (Updated 10/02/23 @ 00:00 by Natalie Lakhani) RBBB (right bundle branch block with left anterior fascicular block) Syncope Dizziness Angina pectoris Coronary artery disease Cystic lung, congenital History of pneumothorax Atrial fibrillation and flutter Presence of stent in LAD coronary artery Pericardial effusion without cardiac tamponade PNA (pneumonia) Diabetes GERD (gastroesophageal reflux disease) Pericarditis Angina at rest History of heart attack Hyperlipidemia Palpitations Hypertension Heart murmur Arrhythmia History of left heart catheterization (LHC) Surgical History Hx of heart artery stent Previous back surgery Family History Other Family history of COPD (chronic obstructive pulmonary disease) Family history of hyperlipidemia Family history of hypertension Family history of myocardial infarction Family history of stroke Lung cancer Social History Smoking Status: Current every day smoker alcohol intake: current current occupational status: previously employed and disabled Travel in the last 8 weeks: None Other Medical History Have you received the Flu Vaccine for this season: No Have you received the Pneumonia Vaccine: No Meds Home Medications and Allergies Home Medications ?Medication ?Instructions ?Recorded ?Confirmed ?Type atorvastatin 80 mg tablet 80 mg PO HS 10/15/21 09/27/23 History glipizide 10 mg tablet 10 mg PO DAILY 10/15/21 09/27/23 History omeprazole 40 mg capsule,delayed 40 mg PO DAILY 10/15/21 09/27/23 History release ropinirole 0.5 mg tablet 0.5 mg PO HS 10/15/21 09/27/23 History sertraline 50 mg tablet 50 mg PO HS 10/15/21 09/27/23 History amitriptyline 50 mg tablet 50 mg PO HS 09/27/23 09/27/23 History tamsulosin 0.4 mg capsule 0.4 mg PO HS 09/27/23 09/27/23 History isosorbide mononitrate 30 mg 30 mg PO DAILY #90 tabs 09/28/23 Rx tablet,extended release 24 hr metoprolol succinate 25 mg 25 mg PO DAILY #90 tabs 09/28/23 Rx tablet,extended release 24 hr ranolazine 500 mg tablet,extended 500 mg PO BID #90 tabs 09/28/23 Rx release,12 hr New Prescriptions to Start Prescriptions: Allergies Allergy/AdvReac Type Severity Reaction Status Date / Time bee venom protein (honey bee) Allergy Verified 09/27/23 16:32 Exam Data for Last 24 hours Vital signs and Labs for Last 24 Hours: Temp Pulse Resp BP Pulse Ox O2 Del Method 98.4 F 108 H 18 146/100 H 94 L Room Air 01/16/24 12:34 01/16/24 16:00 01/16/24 16:00 01/16/24 16:00 01/16/24 16:00 01/16/24 14:00 Laboratory Results - last 24 hr 01/16/24 12:41: WBC 13.4 H, RBC 5.46, Hgb 17.2, Hct 50.3, MCV 92.2, MCH 31.5 H, MCHC 34.2, RDW 13.9, Plt Count 266, MPV 8.7, Neut % (Auto) 52.8, Lymph % (Auto) 38.8, [place] % (Auto) 5.1, Eos % (Auto) 1.6, Baso % (Auto) 1.7, Neut # (Auto) 7.1, Lymph # (Auto) 5.2 H, [place] # (Auto) 0.7, Eos # (Auto) 0.2, Baso # (Auto) 0.2, Sodium 133 L, Potassium 4.8, Chloride 100, Carbon Dioxide 22, Anion Gap 15.8 H, BUN 23 H, Creatinine 0.80, Estimated GFR 97, Est GFR ( Amer) 117, Glucose 498 H*, Calcium 10.3 H, Total Bilirubin 0.7, AST 60 H, ALT 64, Alkaline Phosphatase 150 H, Troponin I < 0.01, NT-Pro-B Natriuret Pep 27.3, Total Protein 7.5 D, Albumin 4.6, Globulin 2.9, Albumin/Globulin Ratio 1.6, HIV 1&2 Antibody Rapid Nonreactive 01/16/24 15:15: Troponin I < 0.01 01/16/24 16:12: VBG pH 7.38, VBG pCO2 36.5, VBG pO2 47.2 H, VBG HCO3 21.2 L, VBG Total CO2 22.3 L, VBG O2 Saturation 82.6 H, VBG Base Excess -4.0 L, VBG Lactic Acid 4.7 H I & O for Last 24 hours: Intake & Output 01/13/24 01/14/24 01/15/24 01/16/24 23:59 23:59 23:59 23:59 Weight 92.986 kg
--- NOTE | 2024-01-16 17:18 | PC.NURSE ---
akila velazco at BS; pt is currently eating at this time without assistance.
--- NOTE | 2024-01-16 17:20 | PC.NURSE ---
called report to jeffrey hope on and answered all questions
[2024-01-16] MEDS: 0.9 % SODIUM CHLORIDE 1000ML 1,000 ML 75 ML IV (18:20)
[2024-01-16] MEDS: INSULIN GLARGINE 100 UNITS/ML 3ML FLEXPEN 20 UNIT SUBCUT (18:35)
[2024-01-16 19:47] LABS: Troponin I < 0.01 ng/ml (0.00-0.034)
[2024-01-16] MEDS: ACETAMINOPHEN 325MG TAB 650 MG PO (19:58)
[2024-01-16 20:14] LABS: POC Glucose,Bedside 321 (70-110)
[2024-01-16 20:28] LABS: Reflex Lactic Add Lactic Reflex
--- NOTE | 2024-01-16 20:38 | P.HP_ITS ---
History of Present Illness *Admission Date: 01/16/24 *Reason for visit:: Malaise, weakness, ataxia since Tuesday/Tuesday *History of present illness: 63-year-old patient with past medical history of diabetes, RBBB, GERD, BPH, restless leg syndrome LA x 3 with stents, hypertension, lower back pain with pain stimulator, atrial fibrillation/flutter, hyperlipidemia, daily smoker. Patient presents with malaise, SOB, ARM[place], dizziness, productive cough since Tuesday. Patient also presents with dysuria/urinary frequency/urinary hesitancy symptoms for the past couple weeks. Also complains of some chest discomfort since Tuesday. Patient admitted to hospital for sepsis, chest pain evaluation. States that he has been coughing up grayish sputum since Tuesday/Tuesday. States that chest discomfort is 5/10, dull, pressure/stinging sensation, pressure lasts 20 minutes, stinging sensation last seconds, with radiation to the jaw, occurring since Tuesday/Tuesday, intermittent. 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 Patient at baseline uses home oxygen 1.5 to 2 L as needed. States he has been using oxygen more frequently over the last 7 days. Denies fevers, chills, recurrent infections, abdominal pain, nausea, diaphoresis, known sick contacts. CTA chest done in emergency room at time of admission showing no pulmonary embolus [facility] Disclaimer: The information contained in this section may have been updated after the patient was seen, as this information can be updated by other users. Medical History (Updated 01/16/24 @ 21:10 by Gamal Gordon MD) RBBB (right bundle branch block with left anterior fascicular block) Syncope Dizziness Angina pectoris Coronary artery disease Cystic lung, congenital History of pneumothorax Atrial fibrillation and flutter Presence of stent in LAD coronary artery Pericardial effusion without cardiac tamponade PNA (pneumonia) Diabetes GERD (gastroesophageal reflux disease) Pericarditis Angina at rest History of heart attack Hyperlipidemia Palpitations Hypertension Heart murmur Arrhythmia History of left heart catheterization (LHC) Surgical History Hx of heart artery stent Previous back surgery Family History Other Family history of COPD (chronic obstructive pulmonary disease) Family history of hyperlipidemia Family history of hypertension Family history of myocardial infarction Family history of stroke Lung cancer Social History (Updated 01/16/24 @ 17:20 by Katarzyna Mathews RN) Smoking Status: Current every day smoker alcohol intake: current current occupational status: previously employed and disabled Travel in the last 8 weeks: None Other Medical History Have you received the Flu Vaccine for this season: Yes Have you received the Pneumonia Vaccine: Yes Review of Systems Constitutional Constitutional: Reports system reviewed and no additional complaints, except as documented Meds Home Medications and Allergies Home Medications ?Medication ?Instructions ?Recorded ?Confirmed ?Type atorvastatin 80 mg tablet 80 mg PO HS 10/15/21 01/16/24 History glipizide 10 mg tablet 10 mg PO DAILY 10/15/21 01/16/24 History omeprazole 40 mg capsule,delayed 40 mg PO DAILY 10/15/21 01/16/24 History release ropinirole 0.5 mg tablet 0.5 mg PO HS 10/15/21 01/16/24 History sertraline 50 mg tablet 50 mg PO HS 10/15/21 01/16/24 History amitriptyline 50 mg tablet 50 mg PO HS 09/27/23 01/16/24 History tamsulosin 0.4 mg capsule 0.4 mg PO HS 09/27/23 01/16/24 History isosorbide mononitrate 30 mg 30 mg PO DAILY #90 tabs 09/28/23 01/16/24 Rx tablet,extended release 24 hr metoprolol succinate 25 mg 25 mg PO DAILY #90 tabs 09/28/23 01/16/24 Rx tablet,extended release 24 hr insulin glargine U-300 conc 300 0 unit SQ DAILY 01/16/24 01/16/24 History unit/mL (3 mL) subcutaneous pen (Toujeo Max U-300 SoloStar) lisinopril 20 mg tablet 20 mg PO DAILY 01/16/24 01/16/24 History New Prescriptions to Start Prescriptions: Allergies Allergy/AdvReac Type Severity Reaction Status Date / Time bee venom protein (honey bee) Allergy Verified 09/27/23 16:32 Exam Data for Last 24 hours Vital signs and Labs for Last 24 Hours: Temp Pulse Resp BP Pulse Ox O2 Del Method O2 Flow Rate 98.4 F 115 H 25 H 135/91 H 95 Nasal Cannula 3 01/16/24 17:59 01/16/24 17:59 01/16/24 17:59 01/16/24 17:59 01/16/24 17:59 01/16/24 18:51 01/16/24 18:51 Laboratory Results - last 24 hr 01/16/24 12:41: WBC 13.4 H, RBC 5.46, Hgb 17.2, Hct 50.3, MCV 92.2, MCH 31.5 H, MCHC 34.2, RDW 13.9, Plt Count 266, MPV 8.7, Neut % (Auto) 52.8, Lymph % (Auto) 38.8, [place] % (Auto) 5.1, Eos % (Auto) 1.6, Baso % (Auto) 1.7, Neut # (Auto) 7.1, Lymph # (Auto) 5.2 H, [place] # (Auto) 0.7, Eos # (Auto) 0.2, Baso # (Auto) 0.2, Sodium 133 L, Potassium 4.8, Chloride 100, Carbon Dioxide 22, Anion Gap 15.8 H, BUN 23 H, Creatinine 0.80, Estimated GFR 97, Est GFR ( Amer) 117, Glucose 498 H*, Calcium 10.3 H, Total Bilirubin 0.7, AST 60 H, ALT 64, Alkaline Phosphatase 150 H, Troponin I < 0.01, NT-Pro-B Natriuret Pep 27.3, Total Protein 7.5 D, Albumin 4.6, Globulin 2.9, Albumin/Globulin Ratio 1.6, HIV 1&2 Antibody Rapid Nonreactive 01/16/24 15:15: Troponin I < 0.01 01/16/24 16:12: VBG pH 7.38, VBG pCO2 36.5, VBG pO2 47.2 H, VBG HCO3 21.2 L, VBG Total CO2 22.3 L, VBG O2 Saturation 82.6 H, VBG Base Excess -4.0 L, VBG Lactic Acid 4.7 H 01/16/24 16:15: Lactate 1.9 01/16/24 16:25: SARS-CoV-2 (PCR) Not detected, Influenza A Untype (PCR) Not detected, Influenza Type B (PCR) Not detected 01/16/24 19:07: Troponin I < 0.01 01/16/24 20:02: POC Glucose 321 H* I & O for Last 24 hours: Intake & Output 01/13/24 01/14/24 01/15/24 01/16/24 23:59 23:59 23:59 23:59 Weight 99.592 kg Constitutional Constitutional: moderate distress, obese and somnolent *Routine HEENT Exam Head: Present normocephalic Eye: Present EOMI ENT: Present mucous membranes dry *Routine Neck Exam Neck: Present supple and full ROM *Routine Respiratory Exam Respiratory: Present accessory muscle use and normal respiratory effort *Routine Cardiovascular Exam Cardiovascular: Present RRR, Normal S1 and Normal S2 *Routine Abdominal Exam Abdominal: Present soft and normoactive bowel sounds *Routine Rectal Exam Rectal:: deferred *Routine Genitalia Exam Genitalia:: deferred *Routine Extremities Exam Extremities: Present full ROM and normal capillary refill Routine Back/Spine/Pelvis Exam Back/Spine: Present full ROM *Routine Skin Exam Skin: Present intact and dry *Routine Neurological Exam Neurological: Present alert and oriented X3 Assessment and Plan *Assessment and plan (1) Sepsis: Status: Acute Qualifiers: Sepsis acute organ dysfunction status: without acute organ dysfunction Sepsis type: sepsis due to unspecified organism Qualified Code(s): A41.9 - Sepsis, unspecified organism Category: Medical Code(s): A41.9 - Sepsis, unspecified organism (2) Acute hyperglycemia: Status: Acute Category: Medical Code(s): R73.9 - Hyperglycemia, unspecified (3) Chest pain: Status: Acute Qualifiers: Chest pain type: unspecified Qualified Code(s): R07.9 - Chest pain, unspecified Category: Medical Code(s): R07.9 - Chest pain, unspecified (4) Dizziness: Status: Acute Category: Medical Code(s): R42 - Dizziness and giddiness (5) Coronary artery disease: Status: Acute Qualifiers: Coronary Disease-Associated Artery/Lesion type: [place] artery [place] vs. transplanted heart: [place] heart Associated angina: with stable angina Qualified Code(s): I25.118 - Atherosclerotic heart disease of [place] coronary artery with other forms of angina pectoris Category: Medical Code(s): I25.10 - Atherosclerotic heart disease of [place] coronary artery without angina pectoris (6) Diabetes: Status: Chronic Qualifiers: Diabetes mellitus type: type 2 Diabetes mellitus long term care pharmacist insulin use: without nursing home use Diabetes mellitus complication status: without complication Qualified Code(s): E11.9 - Type 2 diabetes mellitus without complications Category: Medical Code(s): E11.9 - Type 2 diabetes mellitus without complications (7) Presence of stent in LAD coronary artery: Status: Chronic Category: Medical Code(s): Z95.5 - Presence of coronary angioplasty implant and graft (8) Tobacco use: Status: Chronic Category: Social Hx Code(s): Z72.0 - Tobacco use Plan 63-year-old patient with past medical history of diabetes, RBBB, GERD, BPH, restless leg syndrome LA x 3 with stents, hypertension, lower back pain with pain stimulator, atrial fibrillation/flutter, hyperlipidemia, daily smoker. Patient presents with malaise, SOB, [place], dizziness, productive cough since Tuesday. Patient also presents with dysuria/urinary frequency/urinary hesitancy symptoms for the past couple weeks. Also complains of some chest discomfort since Tuesday. Patient admitted to hospital for sepsis, chest pain evaluation. Problems as listed below: Sepsis: Labs reviewed at time of admission. WBC 13.4, Hg 17.2, platelets 266, NA 133, K4.8, CL 100, serum CO2 22, BUN 23, CR 0.80, estimated GFR 97, GLU 498, AST 60, alk phos 150. Troponin<0.01. I will repeat CBC, mag, BMP in AM. Nasopharyngeal influenza/PCR negative at time of admission. VBG done at time of admission pO2 47.2, HCO3 21.2, CO2 22.3, LA 4.7. ? Patient screens positive for sepsis criteria (HR = 115, RR = 25, WBC 13.4. Patient also has new continuous oxygen requirement and was previously using oxygen as needed at home. Will empirically start patient on vancomycin 1 g IV every 12 hours with pharmacy to dose. Will also start cefepime 1 g IV every 12 for empirical sepsis antibiotic coverage. Patient given 2 L sepsis bolus in the emergency room prior to admission. I ordered nasopharyngeal respiratory panel, urine culture. Blood cultures ordered by emergency room prior to admission. ?Reviewed patient's portable chest x-ray and CTA chest done at time of admission. No pulmonary embolus, infiltrates, pleural effusions noted on CTA chest. Hyperglycemia due to diabetes and septic patient: ? Sliding scale insulin, maintenance IV fluids 75 cc/h normal saline x 2 days, ACHS Accu-Cheks. Diabetic diet. Continue home glipizide 10 mg p.o. daily and glargine at home dose. Chest pain patient with CAD: States that Dr. 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 Will consult cardiology. First troponin negative in emergency room. Will order serial troponins. Continue home Imdur 30 mg p.o. daily, lisinopril 20 mg p.o. daily, metoprolol 25 mg p.o. daily. Restless leg syndrome: Requip 0.5 p.o. nightly BPH: Tamsulosin 0.5 p.o. nightly Headache likely migraines: Ubrelvy 50 mg p.o. every 6 as needed headaches. Tylenol 500 mg p.o. every 6 as needed pain or fever PPx Lovenox 40 mg subcu daily code Full MDM Code: High, patient suffering from acute sepsis and hyperglycemia diabetic exacerbation secondary to acute sepsis. These conditions pose threat to life and bodily function Data: Mod, see above. I spoke with the emergency room physician and made decision to admit patient Risk: High, patient at high risk of if discharged home before sepsis resolved. Prescription drug management as above including IV vancomycin/cefepime/Normal Saline. For 35 minutes of total care time spent in patient with Dr. Gordon 10/20/2023
[2024-01-16] MEDS: CEFEPIME HCL 1 GM in 0.9 % SODIUM CHLORIDE 50 ML IV (20:50)
[2024-01-16] MEDS: humaLOG 100 UNITS/ML 10ML VIAL (SSI) SUBCUT (20:51)
[2024-01-16 20:58] LABS: Squamous Epithelial Cell,Urine Occasional #/hpf (0-5); WBC,Urine Occasional #/hpf (0-3)
[2024-01-16] MEDS: OXYCODONE 5MG IMMEDIATE RELEASE TABLET 5 MG PO (21:01)
[2024-01-16 21:25] LABS: Procalcitonin 0.091 ng/mL (0.0-2.0)
[2024-01-16] MEDS: VANCOMYCIN HCL 1,000 MG in 0.9 % SODIUM CHLORIDE 250 ML 125 MG IV (21:42)
--- NOTE | 2024-01-16 21:45 | EXP.PN ---
Subjective *Date: 01/16/24 *Time: 21:53 Exam Data for Last 24 hours Vital signs and Labs for Last 24 Hours: Temp Pulse Resp BP Pulse Ox O2 Del Method O2 Flow Rate 98.0 F 96 H 16 132/78 97 Room Air 3 01/16/24 20:00 01/16/24 20:00 01/16/24 20:00 01/16/24 20:00 01/16/24 20:00 01/16/24 20:00 01/16/24 18:51 Laboratory Results - last 24 hr 01/16/24 12:41: WBC 13.4 H, RBC 5.46, Hgb 17.2, Hct 50.3, MCV 92.2, MCH 31.5 H, MCHC 34.2, RDW 13.9, Plt Count 266, MPV 8.7, Neut % (Auto) 52.8, Lymph % (Auto) 38.8, [place] % (Auto) 5.1, Eos % (Auto) 1.6, Baso % (Auto) 1.7, Neut # (Auto) 7.1, Lymph # (Auto) 5.2 H, [place] # (Auto) 0.7, Eos # (Auto) 0.2, Baso # (Auto) 0.2, Sodium 133 L, Potassium 4.8, Chloride 100, Carbon Dioxide 22, Anion Gap 15.8 H, BUN 23 H, Creatinine 0.80, Estimated GFR 97, Est GFR ( Amer) 117, Glucose 498 H*, Calcium 10.3 H, Total Bilirubin 0.7, AST 60 H, ALT 64, Alkaline Phosphatase 150 H, Troponin I < 0.01, NT-Pro-B Natriuret Pep 27.3, Total Protein 7.5 D, Albumin 4.6, Globulin 2.9, Albumin/Globulin Ratio 1.6, HIV 1&2 Antibody Rapid Nonreactive 01/16/24 15:15: Troponin I < 0.01 01/16/24 16:12: VBG pH 7.38, VBG pCO2 36.5, VBG pO2 47.2 H, VBG HCO3 21.2 L, VBG Total CO2 22.3 L, VBG O2 Saturation 82.6 H, VBG Base Excess -4.0 L, VBG Lactic Acid 4.7 H 01/16/24 16:15: Lactate 1.9 01/16/24 16:25: SARS-CoV-2 (PCR) Not detected, Influenza A Untype (PCR) Not detected, Influenza Type B (PCR) Not detected 01/16/24 16:40: Urine Color Yellow, Urine Appearance Clear, Urine pH 6.5, Ur Specific [place] 1.010, Urine Protein Negative, Urine Glucose (UA) 3+, Urine Ketones Negative, Urine Blood Negative, Urine Nitrate Negative, Urine Bilirubin Negative, Urine Urobilinogen 0.2, Ur Leukocyte Esterase Negative, Urine RBC None, Urine WBC Occasional, Ur Squamous Epith Cells Occasional, Urine Bacteria None 01/16/24 19:07: Troponin I < 0.01 01/16/24 20:02: POC Glucose 321 H* 01/16/24 20:30: Procalcitonin 0.091 I & O for Last 24 hours: Intake & Output 01/13/24 01/14/24 01/15/24 01/16/24 23:59 23:59 23:59 23:59 Output Total 300 / 300 Balance -300 / -300 Weight 99.592 kg
[2024-01-16 21:53] LABS: Lactic Acid Follow Up (RFLX 1) 1.1 mmol/L (0.7-2.1)
[2024-01-16 22:10] LABS: Troponin I < 0.01 ng/ml (0.00-0.034)
[2024-01-16] MEDS: SODIUM CHLORIDE 3% 15ML NEB 3 ML IH (22:23)
[2024-01-16 22:28] LABS: Adenovirus,PCR Not Detected (NotDetected); Bordetella Pertussis Not Detected (NotDetected); Chlamydophila Pneumoniae, PCR Not Detected (NotDetected); Coronavirus 19, PCR Not Detected (NotDetected); Coronavirus 229E Not Detected (NotDetected); Coronavirus NL63 Not Detected (NotDetected); Coronavirus OC43 Not Detected (NotDetected); Coronovirus HKU1,PCR Not Detected (NotDetected); Human Metapneumovirus Not Detected (NotDetected); Influenza A, PCR Not Detected (NotDetected); Influenza AH1, 2009 Not Detected (NotDetected); Influenza AH1, PCR Not Detected (NotDetected); Influenza AH3,PCR Not Detected (NotDetected); Influenza B, PCR Not Detected (NotDetected); Mycoplasma Pneumoniae, PCR Not Detected (NotDetected); Parainfluenza 1, PCR Not Detected (NotDetected); Parainfluenza 2, PCR Not Detected (NotDetected); Parainfluenza 3, PCR Not Detected (NotDetected); Parainfluenza 4, PCR Not Detected (NotDetected); Respiratory Syncytial Virus Not Detected (NotDetected); Rhinovirus/Enterovirus Not Detected (NotDetected)
[2024-01-17] VITALS (9 sets, daily range): BP systolic 90–164; BP diastolic 58–82; PULSE 67–99; RESP 16–18; TEMP 36.6–37.1; O2SAT 94–98; BMI 29.9
[2024-01-17 03:15] LABS: Troponin I < 0.01 ng/ml (0.00-0.034)
[2024-01-17 05:55] LABS: POC Glucose,Bedside 333 (70-110)
[2024-01-17 06:14] LABS: Albumin Level 3.5 g/dl (3.5-5.0); Chloride 103 mmol/L (98-107); Potassium 4.1 mmoL/L (3.5-5.1); Sodium 131 mmol/L (136-145)
[2024-01-17 06:16] LABS: Alanine Aminotransferase 55 U/L (12-78); Aspartate Amino Transferase 69 U/L (17-59); Basophils # 0.1 K/mm3 (0-0.2); Basophils % 1.1 % (0.1-2.0); Blood Urea Nitrogen 18 mg/dl (9-20); Creatinine Clearance Estimated 104 mL/min (50-200); Eosinophils # 0.3 K/mm3 (0.0-0.4); Eosinophils % 2.8 % (0.1-12.0); Estimated Glomerular Filt Rate 113 ml/min (>60); GFR (African American) 137 ML/MIN (>60); Hematocrit 41.1 % (42.0-52.0); Lymphocytes # 4.7 K/mm3 (0.7-4.5); Lymphocytes % 50.5 % (10-50); Mean Corpuscular HGB Conc 35.2 g/dL (31.8-35.4); Mean Corpuscular Hemoglobin 31.7 pg (27.0-31.2); Mean Corpuscular Volume 90.1 fl (80-94); Mean Platelet Volume 8.4 fl (7.4-10.4); Monocytes # 0.5 K/mm3 (0.1-1.0); Monocytes % 5.4 % (1.7-9.3); Neutrophils # 3.8 K/mm3 (1.8-7.8); Neutrophils % 40.2 % (37.0-80.0); Platelet Count 198 K/mm3 (142-424); Red Blood Count 4.56 M/mm3 (4.60-6.20); White Blood Count 9.4 K/mm3 (4.8-10.8)
[2024-01-17 06:17] LABS: Albumin/Globulin Ratio 1.5 (1.1-1.8); Alkaline Phosphatase 99 U/L (38-126); Anion Gap 7.1 mEq/L (5-15); Bilirubin,Total 0.5 mg/dl (0.2-1.3); Calcium 8.6 mg/dl (8.4-10.2); Carbon Dioxide 25 mmol/L (22.0-30.0); Chol/HDL Ratio 8.7 (1-3.5); Cholesterol 226 mg/dl (140-200); Globulin 2.4 g/dL (1.3-3.2); Glucose 314 mg/dl (74-100); HDL Cholesterol 26 mg/dl (40-60); Magnesium 1.4 mg/dl (1.6-2.3); Total Protein,Serum 5.9 g/dl (6.3-8.2); Triglycerides 351 mg/dl (30-150); VLDL Cholesterol 70 mg/dL (0-40)
[2024-01-17] MEDS: IPRATROPIUM/ALBUTEROL 3 ML NEB IH ×2 (06:18→10:28)
[2024-01-17 06:19] LABS: MANUAL DIFFERENTIAL MANUAL DIFFERENTIAL (MANUAL DIFF)
[2024-01-17 06:20] LABS: Hemoglobin 14.5 g/dL (14.1-18.0)
[2024-01-17 06:28] LABS: Direct LDL Cholesterol 139.56 mg/dL (100-129)
[2024-01-17] MEDS: VANCOMYCIN CONSULT REQUEST 1 EACH NOTAPPLIC (06:46)
[2024-01-17] MEDS: humaLOG 100 UNITS/ML 10ML VIAL (SSI) SUBCUT ×3 (06:55→15:56)
[2024-01-17] MEDS: VANCOMYCIN/WATER FOR INJ (PEG) 1.5 GM/300 ML PIGGYBACK IV (06:55)
--- NOTE | 2024-01-17 06:58 | P.EN_ITS ---
Patient was magnesium 1.4 this a.m. Wrote for 1 g [id number] x 1 IV
--- NOTE | 2024-01-17 06:58 | EXP.EVENT.NO ---
Patient was magnesium 1.4 this a.m. Wrote for 1 g [id number] x 1 IV
[2024-01-17] MEDS: OXYCODONE 5MG IMMEDIATE RELEASE TABLET 5 MG PO (07:04)
--- NOTE | 2024-01-17 07:50 | HMH.PHAINT1 ---
Pharmacy Intervention Comments: home medications verified via outpatient pharmacy and patient interview
--- NOTE | 2024-01-17 08:19 | EXP.PHA.CONS ---
Pharmacy Consult Date: 01/17/24 Time: 08:19 Referring provider: DR. GORDON Reason for Consult:: VANCOMYCIN DOSING Allergies Allergy/AdvReac Type Severity Reaction Status Date / Time bee venom protein (honey bee) Allergy Verified 09/27/23 16:32 Home Medications ?Medication ?Instructions ?Recorded ?Confirmed ?Type atorvastatin 80 mg tablet 80 mg PO HS 10/15/21 01/17/24 History glipizide 10 mg tablet 10 mg PO DAILY 10/15/21 01/17/24 History omeprazole 40 mg capsule,delayed 40 mg PO DAILY 10/15/21 01/17/24 History release ropinirole 0.5 mg tablet 0.5 mg PO HS 10/15/21 01/17/24 History sertraline 50 mg tablet 50 mg PO HS 10/15/21 01/17/24 History amitriptyline 50 mg tablet 50 mg PO HS 09/27/23 01/17/24 History isosorbide mononitrate 30 mg 30 mg PO DAILY #90 tabs 09/28/23 01/17/24 Rx tablet,extended release 24 hr metoprolol succinate 25 mg 25 mg PO DAILY #90 tabs 09/28/23 01/17/24 Rx tablet,extended release 24 hr insulin glargine U-300 conc 300 36 unit SQ HS 01/16/24 01/17/24 History unit/mL (3 mL) subcutaneous pen (Toujeo Max U-300 SoloStar) lisinopril 20 mg tablet 20 mg PO DAILY 01/16/24 01/17/24 History blood sugar diagnostic (Accu-Chek 01/17/24 01/17/24 History Guide test strips) lancets (Accu-Chek Softclix 01/17/24 01/17/24 History Lancets) New Prescriptions to Start Prescriptions: Height: 1.83 m Weight: 100.244 kg Laboratory Results:: Laboratory Results - last 24 hr 01/16/24 12:41: WBC 13.4 H, RBC 5.46, Hgb 17.2, Hct 50.3, MCV 92.2, MCH 31.5 H, MCHC 34.2, RDW 13.9, Plt Count 266, MPV 8.7, Neut % (Auto) 52.8, Lymph % (Auto) 38.8, [place] % (Auto) 5.1, Eos % (Auto) 1.6, Baso % (Auto) 1.7, Neut # (Auto) 7.1, Lymph # (Auto) 5.2 H, [place] # (Auto) 0.7, Eos # (Auto) 0.2, Baso # (Auto) 0.2, Sodium 133 L, Potassium 4.8, Chloride 100, Carbon Dioxide 22, Anion Gap 15.8 H, BUN 23 H, Creatinine 0.80, Estimated GFR 97, Est GFR ( Amer) 117, Glucose 498 H*, Calcium 10.3 H, Total Bilirubin 0.7, AST 60 H, ALT 64, Alkaline Phosphatase 150 H, Troponin I < 0.01, NT-Pro-B Natriuret Pep 27.3, Total Protein 7.5 D, Albumin 4.6, Globulin 2.9, Albumin/Globulin Ratio 1.6, HIV 1&2 Antibody Rapid Nonreactive 01/16/24 15:15: Troponin I < 0.01 01/16/24 16:12: VBG pH 7.38, VBG pCO2 36.5, VBG pO2 47.2 H, VBG HCO3 21.2 L, VBG Total CO2 22.3 L, VBG O2 Saturation 82.6 H, VBG Base Excess -4.0 L, VBG Lactic Acid 4.7 H 01/16/24 16:15: Lactate 1.9 01/16/24 16:25: SARS-CoV-2 (PCR) Not detected, Influenza A Untype (PCR) Not detected, Influenza Type B (PCR) Not detected 01/16/24 16:40: Urine Color Yellow, Urine Appearance Clear, Urine pH 6.5, Ur Specific [place] 1.010, Urine Protein Negative, Urine Glucose (UA) 3+, Urine Ketones Negative, Urine Blood Negative, Urine Nitrate Negative, Urine Bilirubin Negative, Urine Urobilinogen 0.2, Ur Leukocyte Esterase Negative, Urine RBC None, Urine WBC Occasional, Ur Squamous Epith Cells Occasional, Urine Bacteria None 01/16/24 19:07: Troponin I < 0.01 01/16/24 20:02: POC Glucose 321 H* 01/16/24 20:30: Procalcitonin 0.091 01/16/24 21:25: Lactate 1.1, Troponin I < 0.01 01/16/24 22:22: Chlamy pneumoniae PCR Not detected, Adenovirus (PCR) Not detected, B. pertussis DNA (PCR) Not detected, Coronavirus OC43 (PCR) Not detected, Coronavirus HKU1 (PCR) Not detected, Coronavirus 229E (PCR) Not detected, SARS-CoV-2 (PCR) Not detected, Coronavirus NL63 (PCR) Not detected, Human Metapneumovir PCR Not detected, Influenza A (H1) PCR Not detected, Influ A (H1N1/09) PCR Not detected, Influenza A (H3) PCR Not detected, Influenza Type A (PCR) Not detected, Influenza Type B (PCR) Not detected, M. pneumoniae (PCR) Not detected, Parainfluenza 1 (PCR) Not detected, Parainfluenza 2 (PCR) Not detected, Parainfluenza 3 (PCR) Not detected, Parainfluenza 4 (PCR) Not detected, RSV (PCR) Not detected, Entero/Rhino (PCR) Not detected 01/17/24 02:45: Troponin I < 0.01 01/17/24 05:38: POC Glucose 333 H* 01/17/24 05:49: WBC 9.4 D, RBC 4.56 L, Hgb 14.5 D, Hct 41.1 L, MCV 90.1, MCH 31.7 H, MCHC 35.2, RDW 14.0, Plt Count 198 D, MPV 8.4, Neut % (Auto) 40.2, Lymph % (Auto) 50.5 H, [place] % (Auto) 5.4, Eos % (Auto) 2.8, Baso % (Auto) 1.1, Neut # (Auto) 3.8, Lymph # (Auto) 4.7 H, [place] # (Auto) 0.5, Eos # (Auto) 0.3, Baso # (Auto) 0.1, Sodium 131 L, Potassium 4.1, Chloride 103, Carbon Dioxide 25, Anion Gap 7.1, BUN 18, Creatinine 0.70, Estimated Creat Clear 104, Estimated GFR 113, Est GFR ( Amer) 137, Glucose 314 H D, Calcium 8.6, Magnesium 1.4 L, Total Bilirubin 0.5, AST 69 H, ALT 55, Alkaline Phosphatase 99, Total Protein 5.9 L, Albumin 3.5 D, Globulin 2.4, Albumin/Globulin Ratio 1.5, Triglycerides 351 H, Cholesterol 226 H, LDL Cholesterol Direct 139.56 H, VLDL Cholesterol 70 H, HDL Cholesterol 26 L, Cholesterol/HDL Ratio 8.7 H Medical History: Medical History (Updated 01/16/24 @ 21:10 by Gamal Gordon MD) RBBB (right bundle branch block with left anterior fascicular block) Syncope Dizziness Angina pectoris Coronary artery disease Cystic lung, congenital History of pneumothorax Atrial fibrillation and flutter Presence of stent in LAD coronary artery Pericardial effusion without cardiac tamponade PNA (pneumonia) Diabetes GERD (gastroesophageal reflux disease) Pericarditis Angina at rest History of heart attack Hyperlipidemia Palpitations Hypertension Heart murmur Arrhythmia History of left heart catheterization (LHC) Assessment and Plan Assessment and plan all Dx Assessment and Plan for all problems:: Pharmacokinetic dosing service Objective: Patient: Floor: Age: 63 yo Serum creatinine: 1 mg/dL Height: 72.0 Inches Weight (kg): 100 Assessment: IBW (kg): 77.60 Dosing wt(kg): 100 Estimated Creatinine clearance (ml/min): 80.8 CRCL method: Cockcroft and Gault using ibw(default). Drug selected: Vancomycin Loading dose (mg): 0 Vd (liters): 80.0 (factor used: 0.8 L/kg) Jon (hr-1): 0.071 Half life (hrs): 9.76 Recommended dose: 1500 mg Interval: 12 hrs Infusion time (hrs): 2.0 Predicted peak (mcg/mL): 30.5 Predicted trough (mcg/mL): 15.00 Total body weight is being used for vancomycin dosing. Recommendations: Give Vancomycin 1500 mg q 12 hrs with an expected Cpeak of 30.5 mcg/ml and an expected Ctrough of 15.00 mcg/ml ----Vanco only - ignore for aminoglycosides----- CLvanco= 5.68 L/hr AUC 0-24 /MIKE Data: MIKE 0.5 mcg/mL: AUC/MIKE: 1056.3 MIKE 1.0 mcg/mL: AUC/MIKE: 528.2 --------- MIKE 1.5 mcg/mL: AUC/MIKE: 352.1 MIKE 2.0 mcg/mL: AUC/MIKE: 264.1
--- NOTE | 2024-01-17 08:23 | CA_ITS ---
APPROVED REPORT EXAM: Comprehensive 2D, Doppler, and color-flow Echocardiogram Colon And Rectal Surgeon: CRISTIAN Ye, RVS Ht: 6 ft 0 in Wt: 221lbs BSA: 2.22 BP: 140/80 mmHg Rhythm: RBBB Indications: CP, Sepsis,Hx-CAD, old CT, Afib, COPD, Murmurs 2D Dimensions IVSd 1.02 cm LVEF (Visual) 73.40 % PWd 1.22 cm LA Volume 47.70 mL LVDd 5.42 cm LA Volume Index 20.90 mL/m2 (M/F) 16-34 LVDs 3.10 cm Left Atrium 4.22 cm M-Mode Dimensions LA Diam 4.33 cm (1.9-4.0) EPSs 0.57 cm TAPSE 3.36 (<1.7) LV Diastology E Decel Time 163 (160-240 msec) E/A Ratio 0.93 MED A' 8.40 cm/s LAT A' 10.20 cm/s Aortic Valve GREG Index 1.27 cm2/m2 AoV Peak Asa. 139.0 (50-130 cm/s) AI PHT 197.00 ms AO Peak GR. 7.80 mmHg AO Mean GR. 3.90 (<5 mmHg) AO VTI 25.1 (18-25 cm) GREG (VTI) 2.90 (2.5-4.5 cm2) Mitral Valve MV A Velocity 83.0 (40-130 cm/s) E/A Ratio 0.93 Pulmonary Valve [place] End VMAX 147.0 cm/s Left Ventricle The left ventricle is normal size. The left ventricular systolic function is normal. The left ventricular ejection fraction is within the normal range. There is increased LV wall thickness. There is normal LV segmental wall motion. The left ventricular diastolic function is normal. LVEF is 60%. Right Ventricle The right ventricle is normal size. The right ventricular systolic function is normal. Atria The left atrium size is normal. The right atrium size is normal. There is no Doppler evidence of interatrial shunt. Aortic Valve The aortic valve is mildly thickened. There is no aortic valvular stenosis. Moderate aortic regurgitation. Mitral Valve The mitral valve is normal in structure. No evidence of mitral valve stenosis. Trace mitral regurgitation. Tricuspid Valve Tricuspid valve is grossly normal in structure and function. Trace tricuspid regurgitation. There is insufficient TR jet to estimate RVSP. Pulmonic Valve The pulmonary valve is normal in structure. Mild pulmonic regurgitation. Great Vessels The aortic root is mildly dilated, measuring 4.4 cm in diameter. The ascending aorta is not well-visualized. IVC is normal in size and collapses >50% with inspiration. Pericardium There is no pericardial effusion. Other Information Study Quality: Fair Conclusion Normal biventricular systolic function. Moderate AI. The aortic root is mildly dilated, measuring 4.4 cm in diameter. Electronically signed by : Kymberly Conklin MD 01/17/2024 22:55:10
[2024-01-17] MEDS: ENOXAPARIN 40MG/0.4ML SYRINGE 40 MG SUBCUT (08:28)
[2024-01-17] MEDS: LISINOPRIL 20MG TABLET 20 MG PO (08:31)
[2024-01-17] MEDS: ASPIRIN EC 81MG TABLET 81 MG PO (08:31)
[2024-01-17] MEDS: ISOSORBIDE MONO 30MG TAB.ER.24H 30 MG PO (08:31)
[2024-01-17] MEDS: CEFEPIME HCL 2 GM in 0.9 % SODIUM CHLORIDE 100 ML IV ×2 (08:31→15:52)
[2024-01-17] MEDS: UBROGEPANT 50MG TABLET 50 MG PO (08:32)
[2024-01-17] MEDS: METOPROLOL SUCCINATE XL 25MG TABLET 25 MG PO (08:32)
[2024-01-17] MEDS: INSULIN GLARGINE 100 UNITS/ML 3ML FLEXPEN 15 UNIT SUBCUT (08:43)
[2024-01-17 09:07] LABS: Hemoglobin A1C 9.2 % (4.0-6.0)
[2024-01-17 09:16] LABS: HCV Ab Non Reactive (Non Reactive)
[2024-01-17] MEDS: MAGNESIUM SULFATE IN WATER 2 GM/50 ML PIGGYBACK IV ×3 (09:27→11:36)
[2024-01-17 09:44] LABS: Eosinophils % 1 % (0-3); Lymphocytes % 54 % (10-50); Monocytes % 3 % (2-9); Neutrophils % 42 % (42-76); Total Cells Counted 100
[2024-01-17 09:45] LABS: Platelet Estimate Normal; RBC Morphology Normal
[2024-01-17 10:18] LABS: POC Glucose,Bedside 364 (70-110)
--- NOTE | 2024-01-17 11:27 | P.CONCA_ITS ---
History of Present Illness History of Present Illness Consult date: 01/17/24 Requesting physician: Naveen Cantu Consult reason: chest pain Chief complaint: chest pain History of present illness: This is a 63-year-old gentleman who presented to the emergency department with weakness and malaise. He states that he was also having chest pain. He has a past medical history of coronary artery disease, hypertension, hyperlipidemia, diabetes and BPH as well as atrial fibrillation/flutter. The patient states that for the last several days he has just not felt well. He states that he was very weak and really could not do anything around the house. He then had shortness of breath which was worse with exertion. He states it was associated with a productive cough on Tuesday. He also had an increase in urinary frequency and hesitancy. He states that on Tuesday he had some discomfort in his chest. He states it is a sharp, stabbing sensation in the left side of his chest. He states that it is a 5 out of 10 in intensity. It lasts about 20 minutes and then starts thinking for a few seconds. It radiates into his jaw and then resolves. The patient underwent recent left cardiac catheterization which showed patent coronary artery disease. He has ruled out for an MO. He denies any fever, chills, nausea, vomiting, diarrhea, PND or orthopnea. [facility] Disclaimer: The information contained in this section may have been updated after the patient was seen, as this information can be updated by other users. Medical History (Updated 01/16/24 @ 21:10 by Gamal Gordon MD) RBBB (right bundle branch block with left anterior fascicular block) Syncope Dizziness Angina pectoris Coronary artery disease Cystic lung, congenital History of pneumothorax Atrial fibrillation and flutter Presence of stent in LAD coronary artery Pericardial effusion without cardiac tamponade PNA (pneumonia) Diabetes GERD (gastroesophageal reflux disease) Pericarditis Angina at rest History of heart attack Hyperlipidemia Palpitations Hypertension Heart murmur Arrhythmia History of left heart catheterization (LHC) Surgical History Hx of heart artery stent Previous back surgery Family History Other Family history of COPD (chronic obstructive pulmonary disease) Family history of hyperlipidemia Family history of hypertension Family history of myocardial infarction Family history of stroke Lung cancer Social History (Updated 01/16/24 @ 17:20 by Katarzyna Mathews RN) Smoking Status: Current every day smoker alcohol intake: current current occupational status: previously employed and disabled Travel in the last 8 weeks: None Review of Systems Review of Systems Review of systems:: pertinent systems reviewed and negative unless documented below Constitutional Constitutional: Reports system reviewed and no additional complaints, except as documented, Reports fatigue, Reports lethargy, Reports malaise and Reports weakness Eyes Eyes: Reports system reviewed and no additional complaints, except as documented ENT Ears, Nose, Mouth, and Throat: Reports system reviewed and no additional complaints, except as documented *Cardiovascular Cardiovascular: Reports system reviewed and no additional complaints, except as documented, Reports chest pain, Reports chest pain at rest, Reports chest pain with activity, Reports dyspnea and Reports dyspnea on exertion *Respiratory Respiratory: Reports system reviewed and no additional complaints, except as documented, Reports chest congestion, Reports cough, Reports dyspnea, Reports dyspnea on exertion and Reports excessive phlegm production *Gastrointestinal Gastrointestinal: Reports system reviewed and no additional complaints, except as documented *Genitourinary Genitourinary: Reports system reviewed and no additional complaints, except as documented *Musculoskeletal Musculoskeletal: Reports system reviewed and no additional complaints, except as documented Integumentary/Breasts Skin/Breast: Reports system reviewed and no additional complaints, except as documented *Neurologic Neurologic: Reports system reviewed and no additional complaints, except as documented and Reports weakness Psychiatric Psychiatric: Reports system reviewed and no additional complaints, except as documented Endocrine Endocrine: Reports system reviewed and no additional complaints, except as documented and Reports fatigue Hematologic/Lymphatic Hematologic/Lymphatic: Reports system reviewed and no additional complaints, except as documented Allergic/Immunologic Allergic/Immunologic: Reports system reviewed and no additional complaints, except as documented Exam Data for Last 24 hours Vital signs and Labs for Last 24 Hours: Temp Pulse Resp BP Pulse Ox O2 Del Method O2 Flow Rate 98.1 F 86 16 143/82 H 96 Nasal Cannula 3 01/17/24 08:00 01/17/24 10:28 01/17/24 08:00 01/17/24 08:00 01/17/24 08:00 01/17/24 09:00 01/17/24 09:00 Laboratory Results - last 24 hr 01/16/24 12:41: WBC 13.4 H, RBC 5.46, Hgb 17.2, Hct 50.3, MCV 92.2, MCH 31.5 H, MCHC 34.2, RDW 13.9, Plt Count 266, MPV 8.7, Neut % (Auto) 52.8, Lymph % (Auto) 38.8, [place] % (Auto) 5.1, Eos % (Auto) 1.6, Baso % (Auto) 1.7, Neut # (Auto) 7.1, Lymph # (Auto) 5.2 H, [place] # (Auto) 0.7, Eos # (Auto) 0.2, Baso # (Auto) 0.2, Sodium 133 L, Potassium 4.8, Chloride 100, Carbon Dioxide 22, Anion Gap 15.8 H, BUN 23 H, Creatinine 0.80, Estimated GFR 97, Est GFR ( Amer) 117, Glucose 498 H*, Calcium 10.3 H, Total Bilirubin 0.7, AST 60 H, ALT 64, Alkaline Phosphatase 150 H, Troponin I < 0.01, NT-Pro-B Natriuret Pep 27.3, Total Protein 7.5 D, Albumin 4.6, Globulin 2.9, Albumin/Globulin Ratio 1.6, Hepatitis C Antibody Non reactive, HIV 1&2 Antibody Rapid Nonreactive 01/16/24 15:15: Troponin I < 0.01 01/16/24 16:12: VBG pH 7.38, VBG pCO2 36.5, VBG pO2 47.2 H, VBG HCO3 21.2 L, VBG Total CO2 22.3 L, VBG O2 Saturation 82.6 H, VBG Base Excess -4.0 L, VBG Lactic Acid 4.7 H 01/16/24 16:15: Lactate 1.9 01/16/24 16:25: SARS-CoV-2 (PCR) Not detected, Influenza A Untype (PCR) Not detected, Influenza Type B (PCR) Not detected 01/16/24 16:40: Urine Color Yellow, Urine Appearance Clear, Urine pH 6.5, Ur Specific [place] 1.010, Urine Protein Negative, Urine Glucose (UA) 3+, Urine Ketones Negative, Urine Blood Negative, Urine Nitrate Negative, Urine Bilirubin Negative, Urine Urobilinogen 0.2, Ur Leukocyte Esterase Negative, Urine RBC None, Urine WBC Occasional, Ur Squamous Epith Cells Occasional, Urine Bacteria None 01/16/24 18:14: POC Glucose 364 H* 01/16/24 19:07: Troponin I < 0.01 01/16/24 20:02: POC Glucose 321 H* 01/16/24 20:30: Procalcitonin 0.091 01/16/24 21:25: Lactate 1.1, Troponin I < 0.01 01/16/24 22:22: Chlamy pneumoniae PCR Not detected, Adenovirus (PCR) Not detected, B. pertussis DNA (PCR) Not detected, Coronavirus OC43 (PCR) Not detected, Coronavirus HKU1 (PCR) Not detected, Coronavirus 229E (PCR) Not detected, SARS-CoV-2 (PCR) Not detected, Coronavirus NL63 (PCR) Not detected, Human Metapneumovir PCR Not detected, Influenza A (H1) PCR Not detected, Influ A (H1N1/09) PCR Not detected, Influenza A (H3) PCR Not detected, Influenza Type A (PCR) Not detected, Influenza Type B (PCR) Not detected, M. pneumoniae (PCR) Not detected, Parainfluenza 1 (PCR) Not detected, Parainfluenza 2 (PCR) Not detected, Parainfluenza 3 (PCR) Not detected, Parainfluenza 4 (PCR) Not detected, RSV (PCR) Not detected, Entero/Rhino (PCR) Not detected 01/17/24 02:45: Hemoglobin A1c 9.2 H, Troponin I < 0.01 01/17/24 05:38: POC Glucose 333 H* 01/17/24 05:49: WBC 9.4 D, RBC 4.56 L, Hgb 14.5 D, Hct 41.1 L, MCV 90.1, MCH 31.7 H, MCHC 35.2, RDW 14.0, Plt Count 198 D, MPV 8.4, Neut % (Auto) 40.2, Lymph % (Auto) 50.5 H, [place] % (Auto) 5.4, Eos % (Auto) 2.8, Baso % (Auto) 1.1, Neut # (Auto) 3.8, Lymph # (Auto) 4.7 H, [place] # (Auto) 0.5, Eos # (Auto) 0.3, [place] # (Auto) 0.1, Total Counted 100, Neutrophils % (Manual) 42, Lymphocytes % (Manual) 54 H, Monocytes % (Manual) 3, Eosinophils % (Manual) 1, Platelet Estimate Normal, RBC Morphology Normal, Sodium 131 L, Potassium 4.1, Chloride 103, Carbon Dioxide 25, Anion Gap 7.1, BUN 18, Creatinine 0.70, Estimated Creat Clear 104, Estimated GFR 113, Est GFR ( Amer) 137, Glucose 314 H D, Calcium 8.6, Magnesium 1.4 L, Total Bilirubin 0.5, AST 69 H, ALT 55, Alkaline Phosphatase 99, Total Protein 5.9 L, Albumin 3.5 D, Globulin 2.4, Albumin/Globulin Ratio 1.5, Triglycerides 351 H, Cholesterol 226 H, LDL Cholesterol Direct 139.56 H, VLDL Cholesterol 70 H, HDL Cholesterol 26 L, Cholesterol/HDL Ratio 8.7 H I & O for Last 24 hours: Intake & Output 01/14/24 01/15/24 01/16/24 01/17/24 23:59 23:59 23:59 23:59 Output Total 930 / 1130 475 / 475 Balance -930 / -1130 -475 / -475 Weight 219 lb 9 oz 221 lb Microbiology Reports for the Last 24 Hours: Microbiology 01/16/24 22:28 Sputum - Expectorated Sputum Gram Stain - Final Constitutional Constitutional: no acute distress and average body habitus *Routine HEENT Exam Head: Present normocephalic and atraumatic ENT: Present mucous membranes moist *Routine Neck Exam Neck: Present supple, full ROM and normal carotid upstroke; Absent JVD, carotid bruit or lymphadenopathy *Routine Respiratory Exam Respiratory: Present CTA bilaterally, normal respiratory effort, able to speak in complete sentences and symmetric chest movement *Routine Cardiovascular Exam Cardiovascular: Present RRR, Normal S1 and Normal S2; Absent murmur or gallop *Routine Abdominal Exam Abdominal: Present soft and normoactive bowel sounds; Absent tenderness, distended or organomegaly *Routine Extremities Exam Extremities: Present full ROM, pulses intact and normal capillary refill; Absent cyanosis, clubbing or edema *Routine Skin Exam Skin: Present intact and warm; Absent erythema *Routine Neurological Exam Neurological: Present alert, oriented X3 and CN II-XII intact; Absent sensory deficit or motor deficit Routine Psychiatric Exam Psychiatric: Present normal affect Meds Home Medications and Allergies Home Medications ?Medication ?Instructions ?Recorded ?Confirmed ?Type atorvastatin 80 mg tablet 80 mg PO HS 10/15/21 01/17/24 History glipizide 10 mg tablet 10 mg PO DAILY 10/15/21 01/17/24 History omeprazole 40 mg capsule,delayed 40 mg PO DAILY 10/15/21 01/17/24 History release ropinirole 0.5 mg tablet 0.5 mg PO HS 10/15/21 01/17/24 History sertraline 50 mg tablet 50 mg PO HS 10/15/21 01/17/24 History amitriptyline 50 mg tablet 50 mg PO HS 09/27/23 01/17/24 History isosorbide mononitrate 30 mg 30 mg PO DAILY #90 tabs 09/28/23 01/17/24 Rx tablet,extended release 24 hr metoprolol succinate 25 mg 25 mg PO DAILY #90 tabs 09/28/23 01/17/24 Rx tablet,extended release 24 hr insulin glargine U-300 conc 300 36 unit SQ HS 01/16/24 01/17/24 History unit/mL (3 mL) subcutaneous pen (Toujeo Max U-300 SoloStar) lisinopril 20 mg tablet 20 mg PO DAILY 01/16/24 01/17/24 History blood sugar diagnostic (Accu-Chek 01/17/24 01/17/24 History Guide test strips) lancets (Accu-Chek Softclix 01/17/24 01/17/24 History Lancets) New Prescriptions to Start Prescriptions: Allergies Allergy/AdvReac Type Severity Reaction Status Date / Time bee venom protein (honey bee) Allergy Verified 09/27/23 16:32 Assessment and Plan *Assessment and plan (1) Sepsis: Status: Acute Qualifiers: Sepsis acute organ dysfunction status: without acute organ dysfunction Sepsis type: sepsis due to unspecified organism Qualified Code(s): A41.9 - Sepsis, unspecified organism Category: Medical Code(s): A41.9 - Sepsis, unspecified organism (2) Acute hyperglycemia: Status: Acute Category: Medical Code(s): R73.9 - Hyperglycemia, unspecified (3) Coronary artery disease: Status: Acute Qualifiers: Associated angina: with stable angina Coronary Disease-Associated Artery/Lesion type: [place] artery [place] vs. transplanted heart: [place] heart Qualified Code(s): I25.118 - Atherosclerotic heart disease of [place] coronary artery with other forms of angina pectoris Category: Medical Code(s): I25.10 - Atherosclerotic heart disease of [place] coronary artery without angina pectoris (4) Hypertension: Status: Chronic Qualifiers: Hypertension type: primary hypertension Qualified Code(s): I10 - Essential (primary) hypertension Category: Medical Code(s): I10 - Essential (primary) hypertension (5) Hyperlipidemia: Status: Chronic Qualifiers: Hyperlipidemia type: mixed hyperlipidemia Qualified Code(s): E78.2 - Mixed hyperlipidemia Category: Medical Code(s): E78.5 - Hyperlipidemia, unspecified (6) Tobacco use: Status: Chronic Category: Social Hx Code(s): Z72.0 - Tobacco use (7) Diabetes: Status: Chronic Qualifiers: Diabetes mellitus complication status: without complication Diabetes mellitus intermediate insulin use: without watermelon inspector use Diabetes mellitus type: type 2 Qualified Code(s): E11.9 - Type 2 diabetes mellitus without complications Category: Medical Code(s): E11.9 - Type 2 diabetes mellitus without complications (8) Atrial fibrillation and flutter: Status: Chronic Category: Medical Code(s): I48.91 - Unspecified atrial fibrillation; I48.92 - Unspecified atrial flutter (9) Dizziness: Status: Acute Category: Medical Code(s): R42 - Dizziness and giddiness (10) Angina pectoris: Status: Acute Category: Medical Code(s): I20.9 - Angina pectoris, unspecified Plan Plan: 1. The patient has been admitted to the hospital with sepsis. He is getting IV antibiotics. Will defer this to the hospitalist. 2. The patient was having chest pain on admission. He has ruled out for an MO. Recent cardiac catheterization shows patent coronary artery disease. No plans for invasive left cardiac catheterization at this time. His coronary artery disease is likely stable. 3. Will adjust the patient's antianginals. Will increase his Imdur to 60 mg p.o. daily and add Ranexa 500 mg p.o. twice daily for angina. 4. His blood pressure slightly elevated this morning. Increasing his isosorbide will likely help to improve his blood pressure as well. 5. His LDL goal is less than 55. His LDL is 139. He is on a statin. Will consider adding Repatha on an outpatient basis. 6. His BNP is negative. No overt signs of heart failure on exam. 7. Will obtain an echocardiogram to evaluate his LV function. 8. No further recommendations at this time from a cardiac standpoint. The patient will need to follow-up in cardiology clinic in 1 to 2 weeks on an outpatient basis once he is discharged from the hospital. Thank you for the opportunity to help participate in the care of this patient. All recommendations and orders are per Dr Conklin.
[2024-01-17] MEDS: ACETAMINOPHEN 325MG TAB 650 MG PO (11:44)
[2024-01-17] MEDS: ONDANSETRON 4MG/2ML VIAL 4 MG IV (11:44)
[2024-01-17] MEDS: MORPHINE 4MG/ML SYRINGE 4 MG IV (11:45)
[2024-01-17 12:07] LABS: POC Glucose,Bedside 348 (70-110)
[2024-01-17] MEDS: RANOLAZINE 500MG ER TABLET 500 MG PO (13:13)
[2024-01-17] MEDS: ISOSORBIDE MONO 60MG TAB.ER.24H 60 MG PO (13:13)
--- NOTE | 2024-01-17 13:34 | HMH.PTEV ---
Physical Therapy Evaluation Rehab PT IP Evaluation Start: 01/17/24 10:53 Freq: ONCE Status: Active Protocol: Document 01/17/24 13:31 SELENA (Rec: 01/17/24 13:34 SELENA [id number]) Subjective/History History History Per H&P: 63-year-old patient with past medical history of diabetes, RBBB, GERD, BPH, restless leg syndrome [place] x 3 with stents, hypertension, lower back pain with pain stimulator, atrial fibrillation/flutter, hyperlipidemia, daily smoker. Patient presents with malaise , SOB, ARMSTRONG, dizziness, productive cough since Tuesday. Patient also presents with dysuria/urinary frequency/urinary hesitancy symptoms for the past couple weeks. Also complains of some chest discomfort since Tuesday. Patient admitted to hospital for sepsis, chest pain evaluation. States that he has been coughing up grayish sputum since Tuesday /Tuesday. States that chest discomfort is 5/10, dull, pressure/stinging sensation, pressure lasts 20 minutes, stinging sensation last seconds, with radiation to the jaw, occurring since Tuesday /Tuesday, intermittent. States that most recent MRI evaluation occurred 3 months ago, and his local bulk driver is Dr. Ewing. Patient at baseline uses home oxygen 1.5 to 2 L as needed. States he has been using oxygen more frequently over the last 7 days. Denies fevers, chills, recurrent infections, abdominal pain, nausea, diaphoresis, known sick contacts. CTA chest done in emergency room at time of admission showing no pulmonary embolus Subjective Subjective Pt reports he lives at home with his girlfriend in a single-story home with 0 JOSH. Pt usually IND with all mobility using a cane. Pt still drives and is not currently working. Pt's girlfriend able to assist him as needed. Pt also owns a RW. New diagnosis of cancer in past 12 No months? Rehab PT IP Eval Objective Appearance Patient Behavior Appropriate,Cooperative Patient Orientation Person,Place,Situation Difficulty following instructions none Speech Pattern Clear Ambulation Observation IP General Gait Pattern Observation Wide Based Gait Ambulation Distance (feet) 7 Ambulation Assistive Device Straight Cane Ambulation Ability Minimal x 1 (25% assist) Balance Ability to Arise Able, uses arms to help Sitting Balance Steady, safe Standing Balance Steady, wide stance Dynamic Sitting Balance Ability Good Dynamic Standing Balance Ability Fair Transfers Bed Transfer Ability Supervision/Stand by Sit to Stand Bed Transfer Ability Contact Guard/Hand Hold Rehab PT IP prob,goals,plan Problems Date of Evaluation: 01/17/24 PT IP Problems Transfers,Gait,Balance Rehab Potential Rehab Potential Good Plan PT Intervention Plan Transfers,Gait,Balance, Therapeutic Exercise Other Intervention Plan 1-2 times PT Plan Frequency Daily Duration LOS Discharge Goals Bed Transfer Ability Independent Sit to Stand Chair Transfer Ability Independent Ambulation Assistive Device Rolling Walker Ambulation Distance (feet) 20 Discharge Plan PT Discharge Plan Initial physical therapy evaluation performed. Patient presents below baseline at this time in functional mobility, transfers, gait, and strength. Pt would benefit from skilled PT while at [facility] to prevent further functional decline and maximize safety with mobility. Pt safe to d/c home when deemed medically necessary d/t current level of mobility, home set-up, and family support. PT recommending home health PT services to address deficits. Eval Complexity Eval Charge Codes 22724 - Moderate Complexity PHYSICIAN CERTIFICATION: I certify the specified therapy services for Tashi Martin JR are required, authorized, and reviewed every 30 days.
--- NOTE | 2024-01-17 13:38 | HMH.OTEV ---
OT Inpatient Evaluation Rehab OT IP Evaluation Start: 01/17/24 10:53 Freq: ONCE Status: Active Protocol: Document 01/17/24 13:33 [facility] (Rec: 01/17/24 13:38 [facility] [id number]) Rehab OT IP Assessment Subjective History Pt oriented x 3 on arrival. Pt agreeable to engage in therapy evaluation. Pt was admitted on 01/16/24 due to weakness and sepsis. History and physical: 63-year-old patient with past medical history of diabetes, RBBB, GERD, BPH, restless leg syndrome [place] x 3 with stents, hypertension, lower back pain with pain stimulator, atrial fibrillation/flutter, hyperlipidemia, daily smoker. Patient presents with malaise , SOB, ARMSTRONG, dizziness, productive cough since Tuesday. Patient also presents with dysuria/urinary frequency/urinary hesitancy symptoms for the past couple weeks. Also complains of some chest discomfort since Tuesday. Patient admitted to hospital for sepsis, chest pain evaluation. States that he has been coughing up grayish sputum since Tuesday /Tuesday. States that chest discomfort is 5/10, dull, pressure/stinging sensation, pressure lasts 20 minutes, stinging sensation last seconds, with radiation to the jaw, occurring since Tuesday /Tuesday, intermittent. States that most recent MRI evaluation occurred 3 months ago, and his outpatient physical therapist assistant is Dr. Ewing. Patient at baseline uses home oxygen 1.5 to 2 L as needed. States he has been using oxygen more frequently over the last 7 days. Denies fevers, chills, recurrent infections, abdominal pain, nausea, diaphoresis, known sick contacts. CTA chest done in emergency room at time of admission showing no pulmonary embolus Subjective I am usually able to get around fine. Pt reports prior to being in the hospital, he lived at home with his girlfriend. Pt claims normally he is independent with all ADLs and IADLs. Pt does wear oxygen prn. Pt uses cane during functional transfers as needed . Pt still drives. Objective Patient Orientation Person,Place,Birthday Right Upper Extremity Gross ROM WFL Left Upper Extremity Gross ROM WFL Bed Mobility bed mobility-scooting,bed mobility - supine/sit Assist Level Contact Guard/Hand Hold Transfer Training Sit/Stand Transfer Assist Level Minimal x 1 (25% assist) Lower Body Dressing Ability Minimal Assistance Rehab OT IP prob,goals,plan Problems Date of Evaluation: 01/17/24 OT IP Problems Bed Mobility,Transfers,Balance ,Self care,Safety Rehab Potential Rehab Potential Good Equipment Needs Assistive Devices Rolling / Wheeled Walker Plan OT intervention Plan Bed Mobility,Transfers,Balance ,Self care,Safety,Therapeutic Exercise OT Plan Frequency Daily Duration LOS Discharge Goals Bed Mobility Ability Standby Assistance Sit to Stand Chair Transfer Ability Contact Guard/Hand Hold Chair Transfer Ability Contact Guard/Hand Hold Chair Transfer Technique Sit to/from Ambulatory Chair Transfer Assistive Devices Straight Cane,Rolling Walker Lower Body Dressing Ability Standby Assistance Upper Body Dressing Ability Standby Assistance Bathing Ability Standby Assistance Performing Toilet Hygiene Ability Standby Assistance Overall Commode/Toilet Transfer Ability Standby Assistance Commode/Toilet Transfer Technique Sit to/from Ambulatory Commode/Toilet Transfer Assistive Grab Bars Devices Oral Care Assist Standby Assistance Decrease in Endurance Yes Discharge Plan OT Discharge Plan Pt will continue to be seen for OT services while at [facility]. Upon discharge, pt can return home with girlfriends assistance with ADLs as needed . Therapist recommends OT HH evaluation to continue skilled therapy. Continued skilled therapy is important in order for patient to improve strength, safety, endurance, ADL independence, and functional transfers to reach PLOF. Eval Complexity Eval Charge Codes 17899 - Moderate Complexity PHYSICIAN CERTIFICATION: I certify the specified therapy services for Tashi Martin are required, authorized, and reviewed every 30 days.
[2024-01-17 13:51] LABS: Benzodiazepines Screen,Urine Negative ng/ml (<200)
[2024-01-17 13:52] LABS: Amphetamine/Metha Screen,Urine Negative ng/ml (<1000)
[2024-01-17 13:53] LABS: Barbiturates Screen,Urine Negative ng/ml (<200)
[2024-01-17 13:54] LABS: Methadone Screen,Urine Negative ng/ml (<300)
[2024-01-17 13:58] LABS: Opiate Screen,Urine Negative ng/ml (<300); Phencyclidine Screen,Urine Negative ng/ml (<25)
[2024-01-17 14:03] LABS: Cocaine Screen,Urine Negative ng/ml (<300)
[2024-01-17] MEDS: 0.9 % SODIUM CHLORIDE 1000ML 1,000 ML 75 ML IV (14:58)
[2024-01-17 16:06] LABS: POC Glucose,Bedside 340 (70-110)
--- NOTE | 2024-01-17 16:39 | P.DS_ITS ---
General Admission date:: 01/16/24 HPI HPI HPI: 63-year-old patient with past medical history of diabetes, RBBB, GERD, BPH, restless leg syndrome PR x 3 with stents, hypertension, lower back pain with pain stimulator, atrial fibrillation/flutter, hyperlipidemia, daily smoker. Patient presents with malaise, SOB, ARM[place], dizziness, productive cough since Tuesday. Patient also presents with dysuria/urinary frequency/urinary hesitancy symptoms for the past couple weeks. Also complains of some chest discomfort since Tuesday. Patient admitted to hospital for sepsis, chest pain evaluation. States that he has been coughing up grayish sputum since Tuesday/Tuesday. States that chest discomfort is 5/10, dull, pressure/stinging sensation, pressure lasts 20 minutes, stinging sensation last seconds, with radiation to the jaw, occurring since Tuesday/Tuesday, intermittent. 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 Patient at baseline uses home oxygen 1.5 to 2 L as needed. States he has been using oxygen more frequently over the last 7 days. Denies fevers, chills, recurrent infections, abdominal pain, nausea, diaphoresis, known sick contacts. CTA chest done in emergency room at time of admission showing no pulmonary embolus Hospital Course Hospital Course Hospital Course: 63-year-old patient with past medical history of diabetes, RBBB, GERD, BPH, restless leg syndrome PR x 3 with stents, hypertension, lower back pain with pain stimulator, atrial fibrillation/flutter, hyperlipidemia, daily smoker. Patient presents with malaise, SOB, [place], dizziness, productive cough since Tuesday. Patient also presents with dysuria/urinary frequency/urinary hesitancy symptoms for the past couple weeks. Also complains of some chest discomfort since Tuesday. Patient admitted to hospital for sepsis, chest pain evaluation. Problems as listed below: Sepsis Suspected community acquired pneumonia - Presented with SOB, cough, leukocytosis, tachycardia. - Improved with IV antibiotics. Weaned to PO Levaquin for a total of 5 days. On room air. #Chest pain #CAD - Negative troponins, EKG without acute ischemic findings. - Cardiology consulted, recent LHC showed normal coronary arteries. - Increased his Imdur to 60 mg p.o. daily and add Ranexa 500 mg p.o. twice daily for angina. #Type 2 diabetes - A1c 9.2 during admission. - Started Jardiance 10mg, discontinued glimeperide due to risk of hypoglycemia with insulin use. - Continue home insulin. Will need to follow-up with PCP for further optimization. Restless leg syndrome: Requip 0.5 p.o. nightly BPH: Tamsulosin 0.5 p.o. nightly Headache likely migraines: Ubrelvy 50 mg p.o. every 6 as needed headaches. Tyle nol 500 mg p.o. every 6 as needed pain or fever Exam Data for Last 24 hours Vital signs and Labs for Last 24 Hours: Temp Pulse Resp BP Pulse Ox O2 Del Method O2 Flow Rate 98.1 F 81 16 112/70 97 Nasal Cannula 2 01/17/24 11:45 01/17/24 12:20 01/17/24 11:45 01/17/24 11:45 01/17/24 11:45 01/17/24 14:58 01/17/24 13:00 Laboratory Results - last 24 hr 01/16/24 12:41: Hepatitis C Antibody Non reactive 01/16/24 13:20: Urine Opiates Screen Negative, Urine Methadone Screen Negative, Ur Barbituates Screen Negative, Ur Phencyclidine Scrn Negative, Ur Amphetamines Screen Negative, U Benzodiazepines Scrn Negative, Urine Cocaine Screen Negative 01/16/24 16:15: Lactate 1.9 01/16/24 16:25: SARS-CoV-2 (PCR) Not detected, Influenza A Untype (PCR) Not detected, Influenza Type B (PCR) Not detected 01/16/24 16:40: Urine Color Yellow, Urine Appearance Clear, Urine pH 6.5, Ur Specific [place] 1.010, Urine Protein Negative, Urine Glucose (UA) 3+, Urine Ketones Negative, Urine Blood Negative, Urine Nitrate Negative, Urine Bilirubin Negative, Urine Urobilinogen 0.2, Ur Leukocyte Esterase Negative, Urine RBC None, Urine WBC Occasional, Ur Squamous Epith Cells Occasional, Urine Bacteria None 01/16/24 18:14: POC Glucose 364 H* 01/16/24 19:07: Troponin I < 0.01 01/16/24 20:02: POC Glucose 321 H* 01/16/24 20:30: Procalcitonin 0.091 01/16/24 21:25: Lactate 1.1, Troponin I < 0.01 01/16/24 22:22: Chlamy pneumoniae PCR Not detected, Adenovirus (PCR) Not detected, B. pertussis DNA (PCR) Not detected, Coronavirus OC43 (PCR) Not detected, Coronavirus HKU1 (PCR) Not detected, Coronavirus 229E (PCR) Not detected, SARS-CoV-2 (PCR) Not detected, Coronavirus NL63 (PCR) Not detected, Human Metapneumovir PCR Not detected, Influenza A (H1) PCR Not detected, Influ A (H1N1/) PCR Not detected, Influenza A (H3) PCR Not detected, Influenza Type A (PCR) Not detected, Influenza Type B (PCR) Not detected, M. pneumoniae (PCR) Not detected, Parainfluenza 1 (PCR) Not detected, Parainfluenza 2 (PCR) Not detected, Parainfluenza 3 (PCR) Not detected, Parainfluenza 4 (PCR) Not detected, RSV (PCR) Not detected, Entero/Rhino (PCR) Not detected 01/17/24 02:45: Hemoglobin A1c 9.2 H, Troponin I < 0.01 01/17/24 05:38: POC Glucose 333 H* 01/17/24 05:49: WBC 9.4 D, RBC 4.56 L, Hgb 14.5 D, Hct 41.1 L, MCV 90.1, MCH 31.7 H, MCHC 35.2, RDW 14.0, Plt Count 198 D, MPV 8.4, Neut % (Auto) 40.2, Lymph % (Auto) 50.5 H, [place] % (Auto) 5.4, Eos % (Auto) 2.8, Baso % (Auto) 1.1, Neut # (Auto) 3.8, Lymph # (Auto) 4.7 H, [place] # (Auto) 0.5, Eos # (Auto) 0.3, Baso # (Auto) 0.1, Total Counted 100, Neutrophils % (Manual) 42, Lymphocytes % (Manual) 54 H, Monocytes % (Manual) 3, Eosinophils % (Manual) 1, Platelet Estimate Normal, RBC Morphology Normal, Sodium 131 L, Potassium 4.1, Chloride 103, Carbon Dioxide 25, Anion Gap 7.1, BUN 18, Creatinine 0.70, Estimated Creat Clear 104, Estimated GFR 113, Est GFR ( Amer) 137, Glucose 314 H D, Calcium 8.6, Magnesium 1.4 L, Total Bilirubin 0.5, AST 69 H, ALT 55, Alkaline Phosphatase 99, Total Protein 5.9 L, Albumin 3.5 D, Globulin 2.4, Albumin/Globulin Ratio 1.5, Triglycerides 351 H, Cholesterol 226 H, LDL Cholesterol Direct 139.56 H, VLDL Cholesterol 70 H, HDL Cholesterol 26 L, Cholesterol/HDL Ratio 8.7 H 01/17/24 11:39: POC Glucose 348 H* 01/17/24 15:54: POC Glucose 340 H* I & O for Last 24 hours: Intake & Output 01/14/24 01/15/24 01/16/24 01/17/24 23:59 23:59 23:59 23:59 Intake Total 1360 / 1360 Output Total 930 / 1130 875 / 875 Balance -930 / -1130 485 / 485 Weight 99.592 kg 100.244 kg Microbiology Reports for the Last 24 Hours: Microbiology 01/16/24 16:10 Blood Blood Culture - Preliminary NO GROWTH AFTER 24 HOURS 01/16/24 16:10 Blood Blood Culture - Preliminary NO GROWTH AFTER 24 HOURS 01/16/24 22:28 Sputum - Expectorated Sputum Gram Stain - Final Constitutional Constitutional: no acute distress *Routine HEENT Exam Head: Present normocephalic Eye: Present EOMI and PERRL ENT: Present mucous membranes moist *Routine Neck Exam Neck: Present supple; Absent lymphadenopathy *Routine Respiratory Exam Respiratory: Present CTA bilaterally *Routine Cardiovascular Exam Cardiovascular: Present RRR *Routine Abdominal Exam Abdominal: Present soft and normoactive bowel sounds; Absent tenderness *Routine Extremities Exam Extremities: Absent cyanosis, clubbing or edema *Routine Skin Exam Skin: Present warm; Absent rash *Routine Neurological Exam Neurological: Present alert and oriented X3 Results Data Completed and Pending Labs on day of discharge: Labs from last 24 hours 01/17/24 01/17/24 01/17/24 15:54 11:39 05:49 WBC 9.4 D RBC 4.56 L Hgb 14.5 D Hct 41.1 L MCV 90.1 MCH 31.7 H MCHC 35.2 RDW 14.0 Plt Count 198 D MPV 8.4 Neut % (Auto) 40.2 Lymph % (Auto) 50.5 H [place] % (Auto) 5.4 Eos % (Auto) 2.8 Baso % (Auto) 1.1 Neut # (Auto) 3.8 Lymph # (Auto) 4.7 H [place] # (Auto) 0.5 Eos # (Auto) 0.3 Baso # (Auto) 0.1 Total Counted 100 Neutrophils % (Manual) 42 Lymphocytes % (Manual) 54 H Monocytes % (Manual) 3 Eosinophils % (Manual) 1 Platelet Estimate Normal RBC Morphology Normal Sodium 131 L Potassium 4.1 Chloride 103 Carbon Dioxide 25 Anion Gap 7.1 BUN 18 Creatinine 0.70 Estimated Creat Clear 104 Estimated GFR 113 Est GFR ( Amer) 137 Glucose 314 H D POC Glucose 340 H* 348 H* Hemoglobin A1c Lactate Calcium 8.6 Magnesium 1.4 L Total Bilirubin 0.5 AST 69 H ALT 55 Alkaline Phosphatase 99 Troponin I Total Protein 5.9 L Albumin 3.5 D Globulin 2.4 Albumin/Globulin Ratio 1.5 Triglycerides 351 H Cholesterol 226 H LDL Cholesterol Direct 139.56 H VLDL Cholesterol 70 H HDL Cholesterol 26 L Cholesterol/HDL Ratio 8.7 H Procalcitonin Urine Color Urine Appearance Urine pH Ur Specific [place] Urine Protein Urine Glucose (UA) Urine Ketones Urine Blood Urine Nitrate Urine Bilirubin Urine Urobilinogen Ur Leukocyte Esterase Urine RBC Urine WBC Ur Squamous Epith Cells Urine Bacteria Urine Opiates Screen Urine Methadone Screen Ur Barbituates Screen Ur Phencyclidine Scrn Ur Amphetamines Screen U Benzodiazepines Scrn Urine Cocaine Screen Chlamy pneumoniae PCR Adenovirus (PCR) B. pertussis DNA (PCR) Coronavirus OC43 (PCR) Coronavirus HKU1 (PCR) Coronavirus 229E (PCR) SARS-CoV-2 (PCR) Coronavirus NL63 (PCR) Hepatitis C Antibody Human Metapneumovir PCR Influenza A (H1) PCR Influ A (H1N1/09) PCR Influenza A (H3) PCR Influenza Type A (PCR) Influenza A Untype (PCR) Influenza Type B (PCR) M. pneumoniae (PCR) Parainfluenza 1 (PCR) Parainfluenza 2 (PCR) Parainfluenza 3 (PCR) Parainfluenza 4 (PCR) RSV (PCR) Entero/Rhino (PCR) 01/17/24 01/17/24 01/16/24 05:38 02:45 22:22 WBC RBC Hgb Hct MCV MCH MCHC RDW Plt Count MPV Neut % (Auto) Lymph % (Auto) [place] % (Auto) Eos % (Auto) Baso % (Auto) Neut # (Auto) Lymph # (Auto) [place] # (Auto) Eos # (Auto) Baso # (Auto) Total Counted Neutrophils % (Manual) Lymphocytes % (Manual) Monocytes % (Manual) Eosinophils % (Manual) Platelet Estimate RBC Morphology Sodium Potassium Chloride Carbon Dioxide Anion Gap BUN Creatinine Estimated Creat Clear Estimated GFR Est GFR ( Amer) Glucose POC Glucose 333 H* Hemoglobin A1c 9.2 H Lactate Calcium Magnesium Total Bilirubin AST ALT Alkaline Phosphatase Troponin I < 0.01 Total Protein Albumin Globulin Albumin/Globulin Ratio Triglycerides Cholesterol LDL Cholesterol Direct VLDL Cholesterol HDL Cholesterol Cholesterol/HDL Ratio Procalcitonin Urine Color Urine Appearance Urine pH Ur Specific [place] Urine Protein Urine Glucose (UA) Urine Ketones Urine Blood Urine Nitrate Urine Bilirubin Urine Urobilinogen Ur Leukocyte Esterase Urine RBC Urine WBC Ur Squamous Epith Cells Urine Bacteria Urine Opiates Screen Urine Methadone Screen Ur Barbituates Screen Ur Phencyclidine Scrn Ur Amphetamines Screen U Benzodiazepines Scrn Urine Cocaine Screen Chlamy pneumoniae PCR Not detected Adenovirus (PCR) Not detected B. pertussis DNA (PCR) Not detected Coronavirus OC43 (PCR) Not detected Coronavirus HKU1 (PCR) Not detected Coronavirus 229E (PCR) Not detected SARS-CoV-2 (PCR) Not detected Coronavirus NL63 (PCR) Not detected Hepatitis C Antibody Human Metapneumovir PCR Not detected Influenza A (H1) PCR Not detected Influ A (H1N1/09) PCR Not detected Influenza A (H3) PCR Not detected Influenza Type A (PCR) Not detected Influenza A Untype (PCR) Influenza Type B (PCR) Not detected M. pneumoniae (PCR) Not detected Parainfluenza 1 (PCR) Not detected Parainfluenza 2 (PCR) Not detected Parainfluenza 3 (PCR) Not detected Parainfluenza 4 (PCR) Not detected RSV (PCR) Not detected Entero/Rhino (PCR) Not detected 01/16/24 01/16/24 01/16/24 21:25 20:30 20:02 WBC RBC Hgb Hct MCV MCH MCHC RDW Plt Count MPV Neut % (Auto) Lymph % (Auto) [place] % (Auto) Eos % (Auto) Baso % (Auto) Neut # (Auto) Lymph # (Auto) [place] # (Auto) Eos # (Auto) Baso # (Auto) Total Counted Neutrophils % (Manual) Lymphocytes % (Manual) Monocytes % (Manual) Eosinophils % (Manual) Platelet Estimate RBC Morphology Sodium Potassium Chloride Carbon Dioxide Anion Gap BUN Creatinine Estimated Creat Clear Estimated GFR Est GFR ( Amer) Glucose POC Glucose 321 H* Hemoglobin A1c Lactate 1.1 Calcium Magnesium Total Bilirubin AST ALT Alkaline Phosphatase Troponin I < 0.01 Total Protein Albumin Globulin Albumin/Globulin Ratio Triglycerides Cholesterol LDL Cholesterol Direct VLDL Cholesterol HDL Cholesterol Cholesterol/HDL Ratio Procalcitonin 0.091 Urine Color Urine Appearance Urine pH Ur Specific [place] Urine Protein Urine Glucose (UA) Urine Ketones Urine Blood Urine Nitrate Urine Bilirubin Urine Urobilinogen Ur Leukocyte Esterase Urine RBC Urine WBC Ur Squamous Epith Cells Urine Bacteria Urine Opiates Screen Urine Methadone Screen Ur Barbituates Screen Ur Phencyclidine Scrn Ur Amphetamines Screen U Benzodiazepines Scrn Urine Cocaine Screen Chlamy pneumoniae PCR Adenovirus (PCR) B. pertussis DNA (PCR) Coronavirus OC43 (PCR) Coronavirus HKU1 (PCR) Coronavirus 229E (PCR) SARS-CoV-2 (PCR) Coronavirus NL63 (PCR) Hepatitis C Antibody Human Metapneumovir PCR Influenza A (H1) PCR Influ A (H1N1/09) PCR Influenza A (H3) PCR Influenza Type A (PCR) Influenza A Untype (PCR) Influenza Type B (PCR) M. pneumoniae (PCR) Parainfluenza 1 (PCR) Parainfluenza 2 (PCR) Parainfluenza 3 (PCR) Parainfluenza 4 (PCR) RSV (PCR) Entero/Rhino (PCR) 01/16/24 01/16/24 01/16/24 19:07 18:14 16:40 WBC RBC Hgb Hct MCV MCH MCHC RDW Plt Count MPV Neut % (Auto) Lymph % (Auto) [place] % (Auto) Eos % (Auto) Baso % (Auto) Neut # (Auto) Lymph # (Auto) [place] # (Auto) Eos # (Auto) Baso # (Auto) Total Counted Neutrophils % (Manual) Lymphocytes % (Manual) Monocytes % (Manual) Eosinophils % (Manual) Platelet Estimate RBC Morphology Sodium Potassium Chloride Carbon Dioxide Anion Gap BUN Creatinine Estimated Creat Clear Estimated GFR Est GFR ( Amer) Glucose POC Glucose 364 H* Hemoglobin A1c Lactate Calcium Magnesium Total Bilirubin AST ALT Alkaline Phosphatase Troponin I < 0.01 Total Protein Albumin Globulin Albumin/Globulin Ratio Triglycerides Cholesterol LDL Cholesterol Direct VLDL Cholesterol HDL Cholesterol Cholesterol/HDL Ratio Procalcitonin Urine Color Yellow Urine Appearance Clear Urine pH 6.5 Ur Specific [place] 1.010 Urine Protein Negative Urine Glucose (UA) 3+ Urine Ketones Negative Urine Blood Negative Urine Nitrate Negative Urine Bilirubin Negative Urine Urobilinogen 0.2 Ur Leukocyte Esterase Negative Urine RBC None Urine WBC Occasional Ur Squamous Epith Cells Occasional Urine Bacteria None Urine Opiates Screen Urine Methadone Screen Ur Barbituates Screen Ur Phencyclidine Scrn Ur Amphetamines Screen U Benzodiazepines Scrn Urine Cocaine Screen Chlamy pneumoniae PCR Adenovirus (PCR) B. pertussis DNA (PCR) Coronavirus OC43 (PCR) Coronavirus HKU1 (PCR) Coronavirus 229E (PCR) SARS-CoV-2 (PCR) Coronavirus NL63 (PCR) Hepatitis C Antibody Human Metapneumovir PCR Influenza A (H1) PCR Influ A () PCR Influenza A (H3) PCR Influenza Type A (PCR) Influenza A Untype (PCR) Influenza Type B (PCR) M. pneumoniae (PCR) Parainfluenza 1 (PCR) Parainfluenza 2 (PCR) Parainfluenza 3 (PCR) Parainfluenza 4 (PCR) RSV (PCR) Entero/Rhino (PCR) 01/16/24 01/16/24 01/16/24 16:25 16:15 13:20 WBC RBC Hgb Hct MCV MCH MCHC RDW Plt Count MPV Neut % (Auto) Lymph % (Auto) [place] % (Auto) Eos % (Auto) Baso % (Auto) Neut # (Auto) Lymph # (Auto) [place] # (Auto) Eos # (Auto) Baso # (Auto) Total Counted Neutrophils % (Manual) Lymphocytes % (Manual) Monocytes % (Manual) Eosinophils % (Manual) Platelet Estimate RBC Morphology Sodium Potassium Chloride Carbon Dioxide Anion Gap BUN Creatinine Estimated Creat Clear Estimated GFR Est GFR ( Amer) Glucose POC Glucose Hemoglobin A1c Lactate 1.9 Calcium Magnesium Total Bilirubin AST ALT Alkaline Phosphatase Troponin I Total Protein Albumin Globulin Albumin/Globulin Ratio Triglycerides Cholesterol LDL Cholesterol Direct VLDL Cholesterol HDL Cholesterol Cholesterol/HDL Ratio Procalcitonin Urine Color Urine Appearance Urine pH Ur Specific [place] Urine Protein Urine Glucose (UA) Urine Ketones Urine Blood Urine Nitrate Urine Bilirubin Urine Urobilinogen Ur Leukocyte Esterase Urine RBC Urine WBC Ur Squamous Epith Cells Urine Bacteria Urine Opiates Screen Negative Urine Methadone Screen Negative Ur Barbituates Screen Negative Ur Phencyclidine Scrn Negative Ur Amphetamines Screen Negative U Benzodiazepines Scrn Negative Urine Cocaine Screen Negative Chlamy pneumoniae PCR Adenovirus (PCR) B. pertussis DNA (PCR) Coronavirus OC43 (PCR) Coronavirus HKU1 (PCR) Coronavirus 229E (PCR) SARS-CoV-2 (PCR) Not detected Coronavirus NL63 (PCR) Hepatitis C Antibody Human Metapneumovir PCR Influenza A (H1) PCR Influ A (H1N1) PCR Influenza A (H3) PCR Influenza Type A (PCR) Influenza A Untype (PCR) Not detected Influenza Type B (PCR) Not detected M. pneumoniae (PCR) Parainfluenza 1 (PCR) Parainfluenza 2 (PCR) Parainfluenza 3 (PCR) Parainfluenza 4 (PCR) RSV (PCR) Entero/Rhino (PCR) 01/16/24 12:41 WBC RBC Hgb Hct MCV MCH MCHC RDW Plt Count MPV Neut % (Auto) Lymph % (Auto) [place] % (Auto) Eos % (Auto) Baso % (Auto) Neut # (Auto) Lymph # (Auto) [place] # (Auto) Eos # (Auto) Baso # (Auto) Total Counted Neutrophils % (Manual) Lymphocytes % (Manual) Monocytes % (Manual) Eosinophils % (Manual) Platelet Estimate RBC Morphology Sodium Potassium Chloride Carbon Dioxide Anion Gap BUN Creatinine Estimated Creat Clear Estimated GFR Est GFR ( Amer) Glucose POC Glucose Hemoglobin A1c Lactate Calcium Magnesium Total Bilirubin AST ALT Alkaline Phosphatase Troponin I Total Protein Albumin Globulin Albumin/Globulin Ratio Triglycerides Cholesterol LDL Cholesterol Direct VLDL Cholesterol HDL Cholesterol Cholesterol/HDL Ratio Procalcitonin Urine Color Urine Appearance Urine pH Ur Specific [place] Urine Protein Urine Glucose (UA) Urine Ketones Urine Blood Urine Nitrate Urine Bilirubin Urine Urobilinogen Ur Leukocyte Esterase Urine RBC Urine WBC Ur Squamous Epith Cells Urine Bacteria Urine Opiates Screen Urine Methadone Screen Ur Barbituates Screen Ur Phencyclidine Scrn Ur Amphetamines Screen U Benzodiazepines Scrn Urine Cocaine Screen Chlamy pneumoniae PCR Adenovirus (PCR) B. pertussis DNA (PCR) Coronavirus OC43 (PCR) Coronavirus HKU1 (PCR) Coronavirus 229E (PCR) SARS-CoV-2 (PCR) Coronavirus NL63 (PCR) Hepatitis C Antibody Non reactive Human Metapneumovir PCR Influenza A (H1) PCR Influ A (H1N1/09) PCR Influenza A (H3) PCR Influenza Type A (PCR) Influenza A Untype (PCR) Influenza Type B (PCR) M. pneumoniae (PCR) Parainfluenza 1 (PCR) Parainfluenza 2 (PCR) Parainfluenza 3 (PCR) Parainfluenza 4 (PCR) RSV (PCR) Entero/Rhino (PCR) Preliminary micro results at discharge 01/16/24 16:10 Blood Culture - Preliminary Blood NO GROWTH AFTER 24 HOURS 01/16/24 16:10 Blood Culture - Preliminary Blood NO GROWTH AFTER 24 HOURS DS: Diagnosis Discharge Diagnosis (1) Sepsis: Status: Acute Code(s): A41.9 - Sepsis, unspecified organism Qualifiers: Sepsis acute organ dysfunction status: without acute organ dysfunction Sepsis type: sepsis due to unspecified organism Qualified Code(s): A41.9 - Sepsis, unspecified organism (2) Acute hyperglycemia: Status: Acute Code(s): R73.9 - Hyperglycemia, unspecified (3) Coronary artery disease: Status: Acute Code(s): I25.10 - Atherosclerotic heart disease of [place] coronary artery without angina pectoris Qualifiers: Associated angina: with stable angina Coronary Disease-Associated Artery/Lesion type: [place] artery [place] vs. transplanted heart: [place] heart Qualified Code(s): I25.118 - Atherosclerotic heart disease of [place] coronary artery with other forms of angina pectoris (4) Hypertension: Status: Chronic Code(s): I10 - Essential (primary) hypertension Qualifiers: Hypertension type: primary hypertension Qualified Code(s): I10 - Essential (primary) hypertension (5) Hyperlipidemia: Status: Chronic Code(s): E78.5 - Hyperlipidemia, unspecified Qualifiers: Hyperlipidemia type: mixed hyperlipidemia Qualified Code(s): E78.2 - Mixed hyperlipidemia (6) Tobacco use: Status: Chronic Code(s): Z72.0 - Tobacco use (7) Diabetes: Status: Chronic Code(s): E11.9 - Type 2 diabetes mellitus without complications Qualifiers: Diabetes mellitus complication status: without complication Diabetes mellitus terminal operator insulin use: without fci use Diabetes mellitus type: type 2 Qualified Code(s): E11.9 - Type 2 diabetes mellitus without complications (8) Atrial fibrillation and flutter: Status: Chronic Code(s): I48.91 - Unspecified atrial fibrillation; I48.92 - Unspecified atrial flutter (9) Dizziness: Status: Acute Code(s): R42 - Dizziness and giddiness (10) Angina pectoris: Status: Acute Code(s): I20.9 - Angina pectoris, unspecified Meds Home Medications and Allergies Home Medications ?Medication ?Instructions ?Recorded ?Confirmed ?Type atorvastatin 80 mg tablet 80 mg PO HS 10/15/21 01/17/24 History omeprazole 40 mg capsule,delayed 40 mg PO DAILY 10/15/21 01/17/24 History release ropinirole 0.5 mg tablet 0.5 mg PO HS 10/15/21 01/17/24 History sertraline 50 mg tablet 50 mg PO HS 10/15/21 01/17/24 History amitriptyline 50 mg tablet 50 mg PO HS 09/27/23 01/17/24 History metoprolol succinate 25 mg 25 mg PO DAILY #90 tabs 09/28/23 01/17/24 Rx tablet,extended release 24 hr insulin glargine U-300 conc 300 36 unit SQ HS 01/16/24 01/17/24 History unit/mL (3 mL) subcutaneous pen ([employer] Max U-300 SoloStar) lisinopril 20 mg tablet 20 mg PO DAILY 01/16/24 01/17/24 History blood sugar diagnostic (Accu-Chek 01/17/24 01/17/24 History Guide test strips) empagliflozin 10 mg tablet 10 mg PO DAILY #30 tabs 01/17/24 Rx (Jardiance) isosorbide mononitrate 60 mg 60 mg PO DAILY 30 days #30 tabs 01/17/24 Rx tablet,extended release 24 hr lancets (Accu-Chek Softclix 01/17/24 01/17/24 History Lancets) levofloxacin 750 mg tablet 750 mg PO DAILY 5 days #5 tabs 01/17/24 Rx ranolazine 500 mg tablet,extended 500 mg PO BID 30 days #60 tabs 01/17/24 Rx release,12 hr New Prescriptions to Start Prescriptions: empagliflozin [Jardiance] Pepe,Naveen isosorbide mononitrate Pepe,Naveen levofloxacin Pepe,Naveen ranNaveen Tillman Allergies Allergy/AdvReac Type Severity Reaction Status Date / Time bee venom protein (honey bee) Allergy Verified 09/27/23 16:32 Discharge Plan Disposition Patient Disposition: Home, Self-Care Follow up Plan Follow up with: Mila Lange [Primary Care Provider] - 01/19/24 2:00 pm Prescriptions/Medication Reconciliation: New isosorbide mononitrate 60 mg Tablet Extended Release 24 Hr 60 mg PO DAILY 30 Days Qty: 30 0RF ranolazine 500 mg Tablet Extended Release 12 Hr 500 mg PO BID 30 Days Qty: 60 0RF Jardiance 10 mg tablet 10 mg PO DAILY Qty: 30 0RF levofloxacin 750 mg tablet 750 mg PO DAILY 5 Days Qty: 5 0RF Continued lisinopril 20 mg tablet 20 mg PO DAILY insulin glargine U-300 conc [[employer] Max U-300 SoloStar] 300 unit/mL (3 mL) insulin pen 36 unit SQ HS (DME) Accu-Chek Guide test strips Strip MISCELLANEOUS (DME) lancets [Accu-Chek Softclix Lancets] Misc MISCELLANEOUS ropinirole 0.5 mg tablet 0.5 mg PO HS atorvastatin 80 mg tablet 80 mg PO HS omeprazole 40 mg Capsule,Delayed Release(Dr/Ec) 40 mg PO DAILY sertraline 50 mg tablet 50 mg PO HS amitriptyline 50 mg tablet 50 mg PO HS metoprolol succinate 25 mg Tablet Extended Release 24 Hr 25 mg PO DAILY Qty: 90 0RF Discontinued glipizide 10 mg Tablet 10 mg PO DAILY isosorbide mononitrate 30 mg Tablet Extended Release 24 Hr 30 mg PO DAILY Qty: 90 0RF Problem Reconciliation Problems Reviewed?: Yes Patient Discharge Instructions Patient Instructions: DI for Hyperglycemia -- Adult, DI for Sepsis -- Adult Print Language: [place] Providers Primary Care Provider: Mila Lange Admit Provider: Naveen Cantu Attending Provider: Naveen Cantu
[2024-01-17] MEDS: FUROSEMIDE 40MG/4ML VIAL 20 MG IV (17:46)
[2024-01-17 18:15] LABS: Cannabinoid Screen,Urine Negative ng/ml (<50)
--- NOTE | 2024-01-18 10:17 | SW/DCPLANNER ---
Addendum entered by Frannie Swain 01/18/24 12:39: [facility] did accept the patient. Stephane BANEGAS [employer] Addendum entered by Frannie Swain 01/18/24 11:13: Sent the homehealth paperwork to [facility]. Original Note: Spoke with patient on the phone.Patient stated that his sugar is high this morning and has a headache. Patient stated that he was going to take a insulin shot. Patient stated that he is aware of his appointment coming up and that he was able to get some medicine filled before he left the hospital. Patient does want home health services and he has no preference in the agency. Patient stated that he has no concerns or questions at this time. Tianna BANEGAS [employer] Rep[employer]r
== END 2024-01-17 18:10 | disposition home or self-care (01) ==
LOC: ER 15:43 → 2ND 17:10
PROVIDERS: Internal Medicine; Student in an Organized Health Care Education/Training Program; Admitting Provider Student in an Organized Health Care Education/Training Program; Emergency Provider Emergency Medicine; PCP Family Medicine; Visit Provider Student in an Organized Health Care Education/Training Program
DX: I25.118 Atherosclerotic heart disease of native coronary artery with other forms of angina pectoris (principal); I48.91 Unspecified atrial fibrillation; I48.92 Unspecified atrial flutter; E11.65 Type 2 diabetes mellitus with hyperglycemia; R07.9 Chest pain, unspecified; R42 Dizziness and giddiness; Z95.5 Presence of coronary angioplasty implant and graft; I10 Essential (primary) hypertension; E78.2 Mixed hyperlipidemia; F17.210 Nicotine dependence, cigarettes, uncomplicated; Z79.899 Other long term (current) drug therapy; I25.2 Old myocardial infarction; Z79.4 Long term (current) use of insulin
CPT/HCPCS: 36415; 71045; 71275; 80053; 80061; 80307; 81001; 82803; 82962; 83036; 83605; 83735; 83880; 84145; 84484; 85007; 85025; 85027; 86803; 87040; 87070; 87086; 87205; 87389; 87633; 87636; 93005; 93306; 94640; 97162; 97166; 99291; G0378; J0692; J1171; J1650; J1940; J2270; J2405; J3370; J3372; J3475; J7030; J7120; J7620; Q9967

== ENCOUNTER 2024-05-17 20:39 | Observation (INO) | payer MEDICARE, SELFPAY ==
[2024-05-17 21:03] VITALS: BP 113/85; PULSE 121; RESP 20; TEMP 36.8; O2SAT 97; BMI 27.8
[2024-05-17 21:30] VITALS: BP 102/81; PULSE 108; RESP 16; O2SAT 94
--- NOTE | 2024-05-17 21:50 | CT_ITS ---
PROCEDURE INFORMATION: Exam: CT Abdomen And Pelvis With Contrast Exam date and time: 05/17/2024 10:36 PM Age: 63 years old Clinical indication: Abdominal pain; Additional info: Suprapubic and back pain, hematuria TECHNIQUE: Imaging protocol: Computed tomography of the abdomen and pelvis with contrast. Radiation optimization: All CT scans at this facility use at least one of these dose optimization techniques: automated exposure control; mA and/or kV adjustment per patient size (includes targeted exams where dose is matched to clinical indication); or iterative reconstruction. Contrast material: ISOVUE; Contrast volume: 75 ml; Contrast route: IV; COMPARISON: CT ANGIO CHEST PE PROTOCOL 01/16/2024 1:24 PM FINDINGS: Tubes, catheters and devices: None noted. Lungs: Lung bases appear clear. Heart: No significant coronary calcifications. No cardiomegaly. No significant pericardial effusion. Liver: Normal. No mass. Gallbladder and biliary ducts: Cholecystectomy. No ductal dilation. Pancreas: Normal. No ductal dilation. Spleen: Normal. No splenomegaly. Adrenal glands: Normal. No mass. Kidneys and ureters: Normal. No hydronephrosis. Stomach and bowel: Large amount of stool in the colon. No obstruction. No mucosal thickening. Appendix: Appendix is well visualized. No evidence of appendicitis. Intraperitoneal space: Unremarkable. No free air. No significant fluid collection. Retroperitoneal space: No significant retroperitoneal inflammatory changes are noted. Vasculature: Unremarkable. No abdominal aortic aneurysm. Lymph nodes: Unremarkable. No enlarged lymph nodes. Urinary bladder: Unremarkable as visualized. Reproductive: Unremarkable as visualized. Bones/joints: Dorsal column stimulator. No acute fracture. Soft tissues: Unremarkable. IMPRESSION: 1. No CT evidence of appendicitis. 2. Cholecystectomy. 3. Large amount of stool in the colon.
[2024-05-17 21:56] LABS: Basophils # 0.1 K/mm3 (0-0.2); Basophils % 0.7 % (0.1-2.0); Eosinophils # 0.2 K/mm3 (0.0-0.4); Eosinophils % 1.4 % (0.1-12.0); Hemoglobin 15.9 g/dL (14.1-18.0); Lymphocytes # 5.5 K/mm3 (0.7-4.5); Lymphocytes % 41.2 % (10-50); Mean Corpuscular HGB Conc 34.6 g/dL (31.8-35.4); Mean Corpuscular Hemoglobin 30.5 pg (27.0-31.2); Mean Corpuscular Volume 88.3 fl (80-94); Mean Platelet Volume 10.5 fl (7.4-10.4); Monocytes # 1.1 K/mm3 (0.1-1.0); Monocytes % 8.2 % (1.7-9.3); Neutrophils # 6.5 K/mm3 (1.8-7.8); Neutrophils % 48.3 % (37.0-80.0); Nucleated Red Blood Cells # 0 10^3/uL; Nucleated Red Blood Cells % 0 %; Platelet Count 231 K/mm3 (142-424); Red Blood Count 5.21 M/mm3 (4.60-6.20); Red Cell Distribution Width 13.6 % (11.5-17.5); Red Cell Distribution Width-SD 43.8 fL; White Blood Count 13.4 K/mm3 (4.8-10.8)
--- NOTE | 2024-05-17 21:56 | PC.NURSE ---
BLADDER SCAN X3 SHOWS ZERO (0) ML IN BLADDER.
[2024-05-17 22:00] VITALS: BP 118/75; PULSE 107; RESP 19; O2SAT 97
[2024-05-17 22:02] LABS: Albumin Level 4.5 g/dl (3.5-5.0); Chloride 104 mmol/L (98-107); Potassium 4.3 mmoL/L (3.5-5.1); Sodium 139 mmol/L (136-145)
[2024-05-17 22:04] LABS: Blood Urea Nitrogen 21 mg/dl (9-20); Creatinine Clearance Estimated 75 mL/min (50-200); Estimated Glomerular Filt Rate 55 ml/min (>60); GFR (African American) 67 ML/MIN (>60)
[2024-05-17 22:05] LABS: Alanine Aminotransferase 68 U/L (12-78); Albumin/Globulin Ratio 1.4 (1.1-1.8); Alkaline Phosphatase 73 U/L (38-126); Anion Gap 15.3 mEq/L (5-15); Aspartate Amino Transferase 48 U/L (17-59); Bilirubin,Total 0.4 mg/dl (0.2-1.3); Carbon Dioxide 24 mmol/L (22.0-30.0); Globulin 3.2 g/dL (1.3-3.2); Glucose 144 mg/dl (74-100); Lipase 93 U/L (23-300); Total Protein,Serum 7.7 g/dl (6.3-8.2)
[2024-05-17 22:07] LABS: Lactic Acid 1.4 mmol/L (0.7-2.1)
[2024-05-17 22:30] VITALS: BP 107/82; PULSE 105; RESP 16; O2SAT 96
[2024-05-17] MEDS: IOPAMIDOL-370 (76%);100ML BOTTLE 75 ML IV (22:38)
[2024-05-17] MEDS: SODIUM CHLORIDE 0.9% 10ML SYR (RAD ONLY) 10 ML IV (22:38)
--- NOTE | 2024-05-17 22:38 | ED_ITS ---
Discharge Plan Disposition Patient Disposition: Admitted Chief Complaint: Urogenital-Male Prescriptions Prescriptions: No Action insulin glargine U-300 conc [Toujeo Max U-300 SoloStar] 300 unit/mL (3 mL) insulin pen 46 unit SQ HS (DME) Accu-Chek Guide test strips Strip MISCELLANEOUS (DME) lancets [Accu-Chek Softclix Lancets] Misc MISCELLANEOUS ranolazine 500 mg Tablet Extended Release 12 Hr 500 mg PO BID 30 Days Qty: 60 0RF hydrocodone-acetaminophen 5-325 mg tablet 1 tab PO Q6 PRN (Reason: Pain) midodrine 5 mg tablet 5 mg PO TID metronidazole 500 mg tablet 500 mg PO TID ciprofloxacin HCl 500 mg tablet 500 mg PO BID terbinafine HCl 250 mg tablet 250 mg PO DAILY nitroglycerin 0.4 mg tablet, sublingual 0.4 mg sublingual Q5MINP PRN (Reason: Chest Pain) nitroglycerin 0.4 mg tablet, sublingual 0.4 mg sublingual Q5MINP PRN (Reason: Chest Pain) rosuvastatin 40 mg tablet 40 mg PO DAILY duloxetine 30 mg capsule,delayed release(DR/EC) 30 mg PO DAILY pregabalin 25 mg capsule 25 mg PO HS omeprazole 40 mg Capsule,Delayed Release(Dr/Ec) 40 mg PO DAILY sertraline 50 mg tablet 100 mg PO HS metoprolol succinate 25 mg Tablet Extended Release 24 Hr 25 mg PO DAILY Qty: 90 0RF Referrals Follow up/Referrals: Mila Lange [Primary Care Provider] - See instructions Clinical Impressions Clinical Impression: RIGOBERTO (acute kidney injury), UTI (urinary tract infection), Oliguria Instructions Patient Instructions: DI for Urinary Tract Infection (UTI), DI for Urinary Tract Infection in Children Print Language Print Language: Macedonian Discharge ED Provider: Joel Mejía General Adult HPI <Harvey Mulligan MD - Last Filed: 05/17/24 23:13> General Chief complaint: Urogenital-Male Stated complaint: blood in urine , weakness Time Seen by Provider: 05/17/24 21:39 Mode of Arrival: Ambulatory Source of Information: Patient and Spouse Description of Symptoms (Recalled from ER Triage Doc. by RN): Patient presents to ED with blood in his urine and abd pain, right sided back pain. Patient states it started this morning. Patient was d/c from [facility] for colitis on Tuesday. patient is currently taking two antibiotics. History of Present Illness HPI narrative: Please note that above description of symptoms, in this electronic medical record under categorization of recalled from ER triage doctor by RN are reflective of an initial nursing assessment, however, is not reflective of my full history and physical exam that was personally taken and clarified. Consequentially, this preceding description of symptoms, which may include the patient's categorized chief complaint in the EMR, do not reflect my personal clinical impression, and the ultimate description of history of present illness and patient stated complaints should be deferred to this section of the note. Unless stated otherwise or congruent with this section of the note, additional signs, symptoms, or incongruence should be interpreted as inaccurate with my clinical impression. Related Data Home Medications ?Medication ?Instructions ?Recorded ?Confirmed omeprazole 40 mg capsule,delayed 40 mg PO DAILY 10/15/21 05/17/24 release sertraline 50 mg tablet 100 mg PO HS 10/15/21 05/17/24 insulin glargine U-300 conc 300 46 unit SQ HS 01/16/24 05/17/24 unit/mL (3 mL) subcutaneous pen (Toujeo Max U-300 SoloStar) blood sugar diagnostic (Accu-Chek 01/17/24 05/17/24 Guide test strips) lancets (Accu-Chek Softclix 01/17/24 05/17/24 Lancets) ciprofloxacin HCl 500 mg tablet 500 mg PO BID 05/17/24 05/17/24 duloxetine 30 mg capsule,delayed 30 mg PO DAILY 05/17/24 05/17/24 release hydrocodone 5 mg-acetaminophen 325 1 tab PO Q6 PRN Pain 05/17/24 05/17/24 mg tablet metronidazole 500 mg tablet 500 mg PO TID 05/17/24 05/17/24 midodrine 5 mg tablet 5 mg PO TID 05/17/24 05/17/24 nitroglycerin 0.4 mg sublingual 0.4 mg sublingual Q5MINP PRN Chest 05/17/24 05/17/24 tablet Pain nitroglycerin 0.4 mg sublingual 0.4 mg sublingual Q5MINP PRN Chest 05/17/24 05/17/24 tablet Pain pregabalin 25 mg capsule 25 mg PO HS 05/17/24 05/17/24 rosuvastatin 40 mg tablet 40 mg PO DAILY 05/17/24 05/17/24 terbinafine HCl 250 mg tablet 250 mg PO DAILY 05/17/24 05/17/24 Previous Rx's ?Medication ?Instructions ?Recorded metoprolol succinate 25 mg 25 mg PO DAILY #90 tabs 09/28/23 tablet,extended release 24 hr ranolazine 500 mg tablet,extended 500 mg PO BID 30 days #60 tabs 01/17/24 release,12 hr Allergies Allergy/AdvReac Type Severity Reaction Status Date / Time bee venom protein (honey bee) Allergy Verified 09/27/23 16:32 [facility] <Harvey Mulligan MD - Last Filed: 05/17/24 23:13> [facility] Disclaimer: The information contained in this section may have been updated after the patient was seen, as this information can be updated by other users. Medical History (Updated 05/18/24 @ 02:03 by Joel Mejía MD) RBBB (right bundle branch block with left anterior fascicular block) Syncope Dizziness Angina pectoris Coronary artery disease Cystic lung, congenital History of pneumothorax Atrial fibrillation and flutter Presence of stent in LAD coronary artery Pericardial effusion without cardiac tamponade PNA (pneumonia) Diabetes GERD (gastroesophageal reflux disease) Pericarditis Angina at rest History of heart attack Hyperlipidemia Palpitations Hypertension Heart murmur Arrhythmia History of left heart catheterization (LHC) Surgical History Hx of heart artery stent Previous back surgery Family History Other Family history of COPD (chronic obstructive pulmonary disease) Family history of hyperlipidemia Family history of hypertension Family history of myocardial infarction Family history of stroke Lung cancer Social History (Updated 01/16/24 @ 17:20 by Katarzyna Mathews RN) Smoking Status: Unknown if ever smoked alcohol intake: current current occupational status: previously employed and disabled Travel in the last 8 weeks: None Have you lived/traveled outside [place] in past 30 days?: No Contact w/someone who lives/traveled outside US past 30 days?: No Exposure to someone with infectious disease in past 14 days?: No Do you have a fever (greater than 100.4 F or 38 C)?: No Have you tested positive for COVID-19: No Exposed to someone with COVID-19 in past 14 days?: No Do you have a sore throat?: No Do you have a cough?: No Do you have any weakness?: No Do you have any diarrhea?: No Are you experiencing any unusual bleeding?: Yes Do you have any muscle aches/pain?: No Do you have any abdominal pain?: No Are you experiencing loss of taste or smell?: No Other Medical History Have you received the Flu Vaccine for this season: No Have you received the Pneumonia Vaccine: No <Harvey Mulligan MD - Last Filed: 05/17/24 23:13> ROS Obtained: Yes All systems reviewed & no additional complaints except as documented Physical Exam <Harvey Mulligan MD - Last Filed: 05/17/24 23:13> General General appearance: alert and in no apparent distress Head Head exam: atraumatic and normocephalic Eye Eye exam: Present normal appearance, PERRL and EOMI Neck Neck exam: Present normal inspection, full ROM and trachea midline Respiratory Respiratory exam: Absent respiratory distress, wheezes, stridor, accessory muscle use or prolonged expiratory phase Cardiovascular Cardiovascular exam: Present other (Pulses equal symmetric in upper and lower extremities) Abdominal Exam Abdominal exam: Present soft; Absent distention, tenderness, guarding, rebound, rigidity or pulsatile mass Extremities Exam Extremities exam: Absent edema Neurological Exam Neurological exam: Present alert, oriented X3 and CN II-XII intact; Absent motor sensory deficit Skin Skin exam: Present warm and dry; Absent diaphoresis or erythema Medical Decision Making <Harvey Mulligan MD - Last Filed: 05/17/24 23:13> Medical Records Medical records reviewed: Yes I reviewed the patient's medical records. Screening: Per USPSTF and CDC recommendations, given the prevalence of disease in our region, it is our hospital?s policy to screen for HIV and viral Hepatitis for all patients aged 18 and over and those with ongoing risk factors. Moshe Inquiry Pt receiving controlled substance: No Moshe was queried for this patient: No Vital Signs: 05/17/24 21:03 05/17/24 21:30 05/17/24 22:00 Temperature 98.3 F Temperature Source Oral Pulse Rate 108 H 107 H Pulse Rate [Right Brachial] 121 H Respiratory Rate 20 16 19 Blood Pressure 102/81 L 118/75 Blood Pressure [Right Arm] 113/85 Blood Pressure Mean 85 91 Blood Pressure Mean [Right Arm] 94 Blood Pressure Source [Right Arm] Automatic Cuff Blood Pressure Position [Right Arm] Supine 02 Sat by Pulse Oximetry 97 94 L 97 Oxygen Delivery Method Room Air 05/17/24 22:30 05/17/24 23:00 05/17/24 23:30 Temperature Temperature Source Pulse Rate 105 H 89 Pulse Rate [Right Brachial] Respiratory Rate 16 18 17 Blood Pressure 107/82 L 116/77 117/83 Blood Pressure [Right Arm] Blood Pressure Mean 87 Blood Pressure Mean [Right Arm] Blood Pressure Source [Right Arm] Blood Pressure Position [Right Arm] 02 Sat by Pulse Oximetry 96 95 Oxygen Delivery Method 05/18/24 00:00 05/18/24 00:30 05/18/24 01:01 Temperature Temperature Source Pulse Rate 85 81 105 H Pulse Rate [Right Brachial] Respiratory Rate 15 19 17 Blood Pressure 115/75 115/83 134/87 Blood Pressure [Right Arm] Blood Pressure Mean Blood Pressure Mean [Right Arm] Blood Pressure Source [Right Arm] Blood Pressure Position [Right Arm] 02 Sat by Pulse Oximetry 97 97 97 Oxygen Delivery Method Lab Data Lab Results 05/17/24 23:35: Urine Color Yellow, Urine Appearance Clear, Urine pH 5.0, Ur Specific [place] 1.015, Urine Protein Negative, Urine Glucose (UA) Negative, Urine Ketones Negative, Urine Blood Negative, Urine Nitrate Negative, Urine Bilirubin Negative, Urine Urobilinogen 0.2, Ur Leukocyte Esterase Negative, Urine WBC Occasional, Ur Squamous Epith Cells Occasional, Calcium Oxalate Crystal 1+, Urine Bacteria Trace 05/17/24 : WBC 13.4 H, RBC 5.21, Hgb 15.9, Hct 46.0, MCV 88.3, MCH 30.5, MCHC 34.6, RDW 13.6, Plt Count 231, MPV 10.5 H, Neut % (Auto) 48.3, Lymph % (Auto) 41.2, [place] % (Auto) 8.2, Eos % (Auto) 1.4, Baso % (Auto) 0.7, Neut # (Auto) 6.5, Lymph # (Auto) 5.5 H, [place] # (Auto) 1.1 H, Eos # (Auto) 0.2, Baso # (Auto) 0.1, Sodium 139, Potassium 4.3, Chloride 104, Carbon Dioxide 24, Anion Gap 15.3 H, B UN 21 H, Creatinine 1.30 H, Estimated Creat Clear 75, Estimated GFR 55 L, Est GFR ( Amer) 67, Glucose 144 H, Lactate 1.4, Calcium 11.0 H, Total Bilirubin 0.4, AST 48, ALT 68, Alkaline Phosphatase 73, Total Protein 7.7 D, Albumin 4.5, Globulin 3.2, Albumin/Globulin Ratio 1.4, Lipase 93 05/18/24 01:00: Urine Color Brown, Urine Appearance Clear, Urine pH 5.0, Ur Specific [place] >= 1.030, Urine Protein Trace, Urine Glucose (UA) Negative, Urine Ketones Negative, Urine Blood Negative, Urine Nitrate Positive A, Urine Bilirubin Negative, Urine Urobilinogen 0.2, Ur Leukocyte Esterase Negative, Urine WBC 3-5, Ur Squamous Epith Cells 3-5, Calcium Oxalate Crystal Trace, Urine Bacteria 1+, Hyaline Casts 10-20, Urine Mucus 1+ 05/18/24 : Total Creatine Kinase 36 L 05/17/24 Unknown 05/17/24 Unknown Orders (Tests/Meds): ED MEDICATIONS Generic Name Dose Route Start Last Admin Trade Name Freq PRN Reason Stop Dose Admin Ceftriaxone Sodium 1 gm/ 50 mls @ 100 mls/hr 05/18/24 01:54 Sodium Chloride IV 05/18/24 02:23 ONCE ONE Sodium Chloride 10 ml 05/17/24 22:37 05/17/24 22:38 Sodium Chloride 0.9% 10ml Syr (Rad Only) IV 06/16/24 22:36 10 ml NEEDED PRN Administration Maintain IV Site Discontinued Medications Generic Name Dose Route Start Last Admin Trade Name Freq PRN Reason Stop Dose Admin Acetaminophen 1,000 mg 05/18/24 00:05 05/18/24 00:08 Acetaminophen 1,000mg/100ml Vial IV 05/18/24 00:06 1,000 mg ONCE ONE Administration Lactated Ringer's 1,000 mls @ 999 mls/hr 05/17/24 22:37 05/17/24 22:42 Lactated Ringer's 1000 Ml Bag IV 05/17/24 23:37 999 mls/hr .Q1H1M ONE Administration Iopamidol 75 ml 05/17/24 22:37 05/17/24 22:38 Iopamidol-370 (76%);100ml Bottle IV 05/17/24 22:38 75 ml ONCE ONE Administration Ketorolac Tromethamine 15 mg 05/17/24 22:37 05/17/24 22:42 Ketorolac 30mg/Ml Vial IV 05/17/24 22:38 15 mg ONCE ONE Administration Morphine Sulfate 4 mg 05/17/24 22:37 05/17/24 22:42 Morphine 4mg/Ml Syringe IV 05/17/24 22:38 4 mg ONCE ONE Administration Morphine Sulfate 4 mg 05/18/24 00:49 05/18/24 00:53 Morphine 4mg/Ml Syringe IV 05/18/24 00:50 4 mg ONCE ONE Administration Ondansetron HCl 4 mg 05/17/24 22:37 05/17/24 22:42 Ondansetron 4mg/2ml Vial IV 05/17/24 22:38 4 mg ONCE ONE Administration ORDERS Category Date Time Status CT abdomen pelvis w con Stat Cat Scan 05/17/24 21:50 Completed CBC w/Auto Diff [Complete Blood Count Auto Diff] Stat Lab 05/17/24 Completed CK [Creatine Kinase] Stat Lab 05/18/24 Completed CMP [Comprehensive Metabolic Panel] Stat Lab 05/17/24 Completed Lactic Acid Stat Lab 05/17/24 Completed Lipase Stat Lab 05/17/24 Completed UA [Urinalysis and Microscopic] Stat Lab 05/17/24 23:35 Completed UA [Urinalysis and Microscopic] Stat Lab 05/18/24 01:00 Completed Blood Culture Stat Micro 05/18/24 01:54 Ordered Urine Culture Stat Micro 05/18/24 01:00 Received Medical Decision Narrative: 63-year-old male history of hypertension, hyperlipidemia, CAD, diabetes, recent diagnosis of colitis currently on ciprofloxacin and Flagyl, paroxysmal atrial fibrillation not currently on anticoagulation, nephrolithiasis presenting with dysuria, abdominal pain, back pain, hematuria. Patient states that he is only urinated twice today, 05/17. States that he has cramping lower abdominal back pain, cramping lower abdominal pain and has had numerous bloody urinations and passing clots. States that he has no urge to go to the bathroom and usually he does, typically having incontinence. No fevers or chills, nausea or vomiting, diarrhea. States that his colitis symptoms have largely resolved.. History was obtained via conversation with patient and family. On arrival, patient hemodynamically stable, alert, oriented x4, appropriate, GCS 15, moving all extremities spontaneously, pupils equal and reactive to light. Full physical exam performed and significant for clinically well-appearing male who is in no acute distress. Speaking full sentences. Abdomen is nontender, nondistended and no overlying skin changes. Patient appears to be in mild discomfort, but I do not appreciate any suprapubic tenderness or fullness. Differential includes urinary retention, UTI, PUD, gastritis, enteritis, gastroenteritis, pancreatitis, SBO, colitis, diverticulitis, nephrolithiasis, UTI, cholecystitis, choledocholithiasis, appendicitis, torsion, hepatitis, aortic pathology, mesenteric ischemia among others. Patient placed on continuous cardiac monitoring and continuous pulse ox with initial blood pressure 113/85, heart rate 121, saturation 97% on room air. Patient was given fluids, Toradol, Zofran, morphine for symptomatic management and correction of underlying abnormalities. Workup independently interpreted and significant for mild RIGOBERTO and leukocytosis. CT scan without acute intra- abdominal abnormality. See radiology read for full review of final results. Reevaluation, patient feeling much better. Prior to urinalysis, care handed off to oncoming physician. Terrestrial Ecologist disclaimer Much of this encounter note is an electronic life assurance representative spoken language to printed text. Electronic life assurance representative of the spoken language may permit errors. Although I have reviewed the note, some errors may still exist. <Joel Mejía MD - Last Filed: 05/18/24 02:03> Vital Signs: 05/17/24 21:03 05/17/24 21:30 05/17/24 22:00 Temperature 98.3 F Temperature Source Oral Pulse Rate 108 H 107 H Pulse Rate [Right Brachial] 121 H Respiratory Rate 20 16 19 Blood Pressure 102/81 L 118/75 Blood Pressure [Right Arm] 113/85 Blood Pressure Mean 85 91 Blood Pressure Mean [Right Arm] 94 Blood Pressure Source [Right Arm] Automatic Cuff Blood Pressure Position [Right Arm] Supine 02 Sat by Pulse Oximetry 97 94 L 97 Oxygen Delivery Method Room Air 05/17/24 22:30 05/17/24 23:00 05/17/24 23:30 Temperature Temperature Source Pulse Rate 105 H 89 Pulse Rate [Right Brachial] Respiratory Rate 16 18 17 Blood Pressure 107/82 L 116/77 117/83 Blood Pressure [Right Arm] Blood Pressure Mean 87 Blood Pressure Mean [Right Arm] Blood Pressure Source [Right Arm] Blood Pressure Position [Right Arm] 02 Sat by Pulse Oximetry 96 95 Oxygen Delivery Method 05/18/24 00:00 05/18/24 00:30 05/18/24 01:01 Temperature Temperature Source Pulse Rate 85 81 105 H Pulse Rate [Right Brachial] Respiratory Rate 15 19 17 Blood Pressure 115/75 115/83 134/87 Blood Pressure [Right Arm] Blood Pressure Mean Blood Pressure Mean [Right Arm] Blood Pressure Source [Right Arm] Blood Pressure Position [Right Arm] 02 Sat by Pulse Oximetry 97 97 97 Oxygen Delivery Method Lab Data Lab Results 05/17/24 23:35: Urine Color Yellow, Urine Appearance Clear, Urine pH 5.0, Ur Specific [place] 1.015, Urine Protein Negative, Urine Glucose (UA) Negative, Urine Ketones Negative, Urine Blood Negative, Urine Nitrate Negative, Urine Bilirubin Negative, Urine Urobilinogen 0.2, Ur Leukocyte Esterase Negative, Urine WBC Occasional, Ur Squamous Epith Cells Occasional, Calcium Oxalate Crystal 1+, Urine Bacteria Trace 05/17/24 : WBC 13.4 H, RBC 5.21, Hgb 15.9, Hct 46.0, MCV 88.3, MCH 30.5, MCHC 34.6, RDW 13.6, Plt Count 231, MPV 10.5 H, Neut % (Auto) 48.3, Lymph % (Auto) 41.2, [place] % (Auto) 8.2, Eos % (Auto) 1.4, Baso % (Auto) 0.7, Neut # (Auto) 6.5, Lymph # (Auto) 5.5 H, [place] # (Auto) 1.1 H, Eos # (Auto) 0.2, Baso # (Auto) 0.1, Sodium 139, Potassium 4.3, Chloride 104, Carbon Dioxide 24, Anion Gap 15.3 H, B UN 21 H, Creatinine 1.30 H, Estimated Creat Clear 75, Estimated GFR 55 L, Est GFR ( Amer) 67, Glucose 144 H, Lactate 1.4, Calcium 11.0 H, Total Bilirubin 0.4, AST 48, ALT 68, Alkaline Phosphatase 73, Total Protein 7.7 D, Albumin 4.5, Globulin 3.2, Albumin/Globulin Ratio 1.4, Lipase 93 05/18/24 01:00: Urine Color Brown, Urine Appearance Clear, Urine pH 5.0, Ur Specific [place] >= 1.030, Urine Protein Trace, Urine Glucose (UA) Negative, Urine Ketones Negative, Urine Blood Negative, Urine Nitrate Positive A, Urine Bilirubin Negative, Urine Urobilinogen 0.2, Ur Leukocyte Esterase Negative, Urine WBC 3-5, Ur Squamous Epith Cells 3-5, Calcium Oxalate Crystal Trace, Urine Bacteria 1+, Hyaline Casts 10-20, Urine Mucus 1+ 05/18/24 : Total Creatine Kinase 36 L Orders (Tests/Meds): ED MEDICATIONS Generic Name Dose Route Start Last Admin Trade Name Freq PRN Reason Stop Dose Admin Ceftriaxone Sodium 1 gm/ 50 mls @ 100 mls/hr 05/18/24 01:54 Sodium Chloride IV 05/18/24 02:23 ONCE ONE Sodium Chloride 10 ml 05/17/24 22:37 05/17/24 22:38 Sodium Chloride 0.9% 10ml Syr (Rad Only) IV 06/16/24 22:36 10 ml NEEDED PRN Administration Maintain IV Site Discontinued Medications Generic Name Dose Route Start Last Admin Trade Name Freq PRN Reason Stop Dose Admin Acetaminophen 1,000 mg 05/18/24 00:05 05/18/24 00:08 Acetaminophen 1,000mg/100ml Vial IV 05/18/24 00:06 1,000 mg ONCE ONE Administration Lactated Ringer's 1,000 mls @ 999 mls/hr 05/17/24 22:37 05/17/24 22:42 Lactated Ringer's 1000 Ml Bag IV 05/17/24 23:37 999 mls/hr .Q1H1M ONE Administration Iopamidol 75 ml 05/17/24 22:37 05/17/24 22:38 Iopamidol-370 (76%);100ml Bottle IV 05/17/24 22:38 75 ml ONCE ONE Administration Ketorolac Tromethamine 15 mg 05/17/24 22:37 05/17/24 22:42 Ketorolac 30mg/Ml Vial IV 05/17/24 22:38 15 mg ONCE ONE Administration Morphine Sulfate 4 mg 05/17/24 22:37 05/17/24 22:42 Morphine 4mg/Ml Syringe IV 05/17/24 22:38 4 mg ONCE ONE Administration Morphine Sulfate 4 mg 05/18/24 00:49 05/18/24 00:53 Morphine 4mg/Ml Syringe IV 05/18/24 00:50 4 mg ONCE ONE Administration Ondansetron HCl 4 mg 05/17/24 22:37 05/17/24 22:42 Ondansetron 4mg/2ml Vial IV 05/17/24 22:38 4 mg ONCE ONE Administration ORDERS Category Date Time Status CT abdomen pelvis w con Stat Cat Scan 05/17/24 21:50 Completed CBC w/Auto Diff [Complete Blood Count Auto Diff] Stat Lab 05/17/24 Completed CK [Creatine Kinase] Stat Lab 05/18/24 Completed CMP [Comprehensive Metabolic Panel] Stat Lab 05/17/24 Completed Lactic Acid Stat Lab 05/17/24 Completed Lipase Stat Lab 05/17/24 Completed UA [Urinalysis and Microscopic] Stat Lab 05/17/24 23:35 Completed UA [Urinalysis and Microscopic] Stat Lab 05/18/24 01:00 Completed Blood Culture Stat Micro 05/18/24 01:54 Ordered Urine Culture Stat Micro 05/18/24 01:00 Received Medical Decision Narrative: 63-year-old male history of hypertension, hyperlipidemia, CAD, diabetes, recent diagnosis of colitis currently on ciprofloxacin and Flagyl, paroxysmal atrial fibrillation not currently on anticoagulation, nephrolithiasis presenting with dysuria, abdominal pain, back pain, hematuria. Patient states that he is only urinated twice today, 05/17. States that he has cramping lower abdominal back pain, cramping lower abdominal pain and has had numerous bloody urinations and passing clots. States that he has no urge to go to the bathroom and usually he does, typically having incontinence. No fevers or chills, nausea or vomiting, diarrhea. States that his colitis symptoms have largely resolved.. History was obtained via conversation with patient and family. On arrival, patient hemodynamically stable, alert, oriented x4, appropriate, GCS 15, moving all extremities spontaneously, pupils equal and reactive to light. Full physical exam performed and significant for clinically well-appearing male who is in no acute distress. Speaking full sentences. Abdomen is nontender, nondistended and no overlying skin changes. Patient appears to be in mild discomfort, but I do not appreciate any suprapubic tenderness or fullness. Differential includes urinary retention, UTI, PUD, gastritis, enteritis, gastroenteritis, pancreatitis, SBO, colitis, diverticulitis, nephrolithiasis, UTI, cholecystitis, choledocholithiasis, appendicitis, torsion, hepatitis, aortic pathology, mesenteric ischemia among others. Patient placed on continuous cardiac monitoring and continuous pulse ox with initial blood pressure 113/85, heart rate 121, saturation 97% on room air. Patient was given fluids, Toradol, Zofran, morphine for symptomatic management and correction of underlying abnormalities. Workup independently interpreted and significant for mild RIGOBERTO and leukocytosis. CT scan without acute intra- abdominal abnormality. See radiology read for full review of final results. Reevaluation, patient feeling much better. Prior to urinalysis, care handed off to oncoming physician. Terrestrial Ecologist disclaimer Much of this encounter note is an electronic life assurance representative spoken language to printed text. Electronic life assurance representative of the spoken language may permit errors. Although I have reviewed the note, some errors may still exist. Kym POWELL: I assumed care of the patient at the time of handoff from the prior provider. On reassessment patient continues to have lower abdominal pain, required additional morphine. CT imaging shows an enlarged and calcified prostate, some stool throughout the colon, no evidence of renal or ureteral stone. On my interpretation his sigmoid colon has diffuse diverticuli and the lining looks somewhat more enhancing compared to the surrounding bowel, though does not have any stranding around to suggest diverticulitis. He was able to give us only a couple of drops of urine which did not show any RBCs or signs of infection. He still feels full and in pain. On bedside ultrasound he does have some urine in the bladder but patient continues to be unable to pee on multiple attempts. Given he reports he had charis blood while peeing earlier, I am concerned he could have a clot that is preventing him from peeing. Given this, a Jackson catheter was placed. A small volume of tea colored urine was obtained after catheterization. The small volume is despite patient reportedly drinking significant water throughout the day, not peeing significantly for the last 20 hours, as well as getting a liter bolus in the ER. Repeat urinalysis is nitrite positive with 3-5 WBCs and 1+ bacteria. Also has 10-20 casts. CK was obtained and normal. Overall, the underlying etiology patient presentation remains unclear. The urinalysis is not entirely convinced for UTI, and the reported presence of blood earlier is no longer present. I am most concerned about the patient's RIGOBERTO and oliguria. We will treat empirically with ceftriaxone for possible UTI. Interactive discussion was had with hospitalist for admission. Critical Care <Harvey Mulligan MD - Last Filed: 05/17/24 23:13> Critical Care Time Critical Care Time: No
[2024-05-17] MEDS: LACTATED RINGERS 1000ML 1,000 ML 999 ML IV (22:42)
[2024-05-17] MEDS: MORPHINE 4MG/ML SYRINGE 4 MG IV (22:42)
[2024-05-17] MEDS: ONDANSETRON 4MG/2ML VIAL 4 MG IV (22:42)
[2024-05-17] MEDS: KETOROLAC 30MG/ML VIAL 15 MG IV (22:42)
[2024-05-17 23:00] VITALS: BP 116/77; PULSE 89; RESP 18; O2SAT 95
[2024-05-17 23:30] VITALS: BP 117/83; RESP 17
[2024-05-17 23:43] LABS: Microscopic, Urine URINE MICROSCOPIC (MICROSCOPIC)
[2024-05-17 23:45] LABS: Appearance,Urine CLEAR (Clear); Bilirubin,Urine Negative (Negative); Blood, Urine Negative (Negative); Color,Urine YELLOW (Yellow); Glucose,Urine (UA) Negative (Negative); Ketones,Urine Negative (Negative); Leukocyte Esterase,Urine Negative (Negative); Nitrate,Urine Negative (Negative); Protein,Urine Negative (Negative); Specific Gravity, Urine 1.015 (1.005-1.030); Urobilinogen,Urine 0.2 EU/dl (0.2)
[2024-05-17 23:54] LABS: Bacteria,Urine Trace /lpf; Calcium Oxalate Crystals,Urine 1+ /lpf; Squamous Epithelial Cell,Urine Occasional #/hpf (0-5); WBC,Urine Occasional #/hpf (0-3)
[2024-05-18] VITALS (10 sets, daily range): BP systolic 95–134; BP diastolic 61–87; PULSE 65–105; RESP 14–19; TEMP 36.3–36.6; O2SAT 92–97; BMI 28.5
[2024-05-18] MEDS: ACETAMINOPHEN 1,000MG/100ML VIAL 1000 MG IV (00:08)
[2024-05-18] MEDS: MORPHINE 4MG/ML SYRINGE 4 MG IV (00:53)
[2024-05-18 01:17] LABS: Microscopic, Urine URINE MICROSCOPIC (MICROSCOPIC)
[2024-05-18 01:22] LABS: Appearance,Urine CLEAR (Clear); Bilirubin,Urine Negative (Negative); Blood, Urine Negative (Negative); Color,Urine BROWN (Yellow); Glucose,Urine (UA) Negative (Negative); Ketones,Urine Negative (Negative); Leukocyte Esterase,Urine Negative (Negative); Nitrate,Urine POSITIVE (Negative); Protein,Urine TRACE (Negative); Specific Gravity, Urine >= 1.030 (1.005-1.030); Urobilinogen,Urine 0.2 EU/dl (0.2)
[2024-05-18 01:31] LABS: Bacteria,Urine 1+ /lpf; Mucus,Urine 1+ /lpf
[2024-05-18 01:32] LABS: Creatine Kinase 36 U/L (55-170)
[2024-05-18 01:32] LABS: Calcium Oxalate Crystals,Urine Trace /lpf
[2024-05-18] MEDS: CEFTRIAXONE 1 GM 1 GM in 0.9 % SODIUM CHLORIDE 50 ML IV (02:08)
--- NOTE | 2024-05-18 02:14 | US_ITS ---
FINAL REPORT TECHNIQUE: Ultrasound images of the kidneys and bladder were obtained. CLINICAL HISTORY: haris FINDINGS: The right kidney measures 10.4 cm in length. It is normal in echogenicity. There is no hydronephrosis. The left kidney measures 12.2 cm in length. It is normal in echogenicity. There is no hydronephrosis. There is a lower pole left renal cyst measuring 21 mm. No solid mass is identified. IMPRESSION: No evidence of significant renal atrophy or obstruction. Reviewed, Interpreted and Dictated by Olman Huntley MD Transcribed by Suni Pedro Authenticated and [facility]
--- NOTE | 2024-05-18 02:23 | P.HP_ITS ---
<Statement entered by Naveen Cantu MD - 05/19/24 14:07> I personally examined the patient and agree with the plan of care as outlined by the SIGNAL TOWER OPERATOR. History of Present Illness *Admission Date: 05/18/24 *Reason for visit:: Abdominal pain *History of present illness: This is a 63-year-old male who has a past medical history significant for enlarged prostate-currently on alpha-1 therapy, angina, coronary artery disease, cystic lung, atrial fibrillation (currently not on any anticoagulants), pericarditis, [place] status post 3 stents, hyperlipidemia, hypertension, diabetes, heart murmur, and right bundle branch block who presents with a chief complaint of decreased urinary output and abdominal pain. Due to patient's symptoms, he presented to the emergency room for evaluation. While in the emergency room, patient had only minimal urinary output and his chemistries were consistent with an acute kidney injury. CT scan of the abdomen pelvis revealed a large amount of stool in the colon. Due to patient's persistent inability to urinate, a Jackson catheter was placed. Patient has been admitted for further management. During my evaluation of the patient, patient states he had a 2-day history of decreased urinary output. He voices he is normally voiding regularly and actually has urgency. He does voice prior history of enlarged prostate and currently prescribed Flomax. Patient states that he has been having no urinary output and the urine that he is able to void is bloody. Recently, patient was admitted to [place] for colitis. He was treated with agusto quinolones and Flagyl. Patient is still prescribed Flagyl and Cipro. Patient voices drinking at least a quart of water daily. He is also complaining of some lower abdominal pain. Patient also reports that he has a pain stimulator to the left lower back that is implanted. He voices no prior history of any urinary dysfunction. He is currently denying any flank pain, fever, chills, chest pain, shortness of breath, lightheadedness, dizziness, fever, chills, rigors, nausea, vomiting, or diarrhea. He reports his last bowel movement was 2 days ago. Additional pertinent vitals obtained include a white blood cell count of 13.4, heart rate of 121 now improved to the 80s, BUN 21, creatinine 1.30, GFR 55, blood glucose 144, calcium of 11, and urinalysis revealed positive nitrates/white blood cells 3-5/hyaline casts of 10-20/1+ bacteria. [facility] Disclaimer: The information contained in this section may have been updated after the patient was seen, as this information can be updated by other users. Medical History (Updated 05/18/24 @ 02:42 by Hitesh Almonte APRN) Enlarged prostate Dizziness Angina pectoris Coronary artery disease Syncope Cystic lung, congenital History of pneumothorax Atrial fibrillation and flutter Presence of stent in LAD coronary artery Pericardial effusion without cardiac tamponade PNA (pneumonia) Diabetes GERD (gastroesophageal reflux disease) Pericarditis Angina at rest History of heart attack Hyperlipidemia Palpitations Hypertension Heart murmur Arrhythmia History of left heart catheterization (LHC) RBBB (right bundle branch block with left anterior fascicular block) Surgical History Hx of heart artery stent Previous back surgery Family History Other Family history of COPD (chronic obstructive pulmonary disease) Family history of hyperlipidemia Family history of hypertension Family history of myocardial infarction Family history of stroke Lung cancer Social History (Updated 01/16/24 @ 17:20 by Katarzyna Mathews RN) Smoking Status: Unknown if ever smoked alcohol intake: current current occupational status: previously employed and disabled Travel in the last 8 weeks: None Have you lived/traveled outside US in past 30 days?: No Contact w/someone who lives/traveled outside US past 30 days?: No Exposure to someone with infectious disease in past 14 days?: No Do you have a fever (greater than 100.4 F or 38 C)?: No Have you tested positive for COVID-19: No Exposed to someone with COVID-19 in past 14 days?: No Do you have a sore throat?: No Do you have a cough?: No Do you have any weakness?: No Do you have any diarrhea?: No Are you experiencing any unusual bleeding?: Yes Do you have any muscle aches/pain?: No Do you have any abdominal pain?: No Are you experiencing loss of taste or smell?: No Other Medical History Have you received the Flu Vaccine for this season: No Have you received the Pneumonia Vaccine: No Review of Systems Review of Systems Review of systems:: pertinent systems reviewed and negative unless documented below Constitutional Constitutional: Reports system reviewed and no additional complaints, except as documented Eyes Eyes: Reports system reviewed and no additional complaints, except as documented ENT Ears, Nose, Mouth, and Throat: Reports system reviewed and no additional complaints, except as documented *Cardiovascular Cardiovascular: Reports system reviewed and no additional complaints, except as documented *Respiratory Respiratory: Reports system reviewed and no additional complaints, except as documented *Gastrointestinal Gastrointestinal: Reports abdominal pain *Genitourinary Genitourinary: Reports hematuria and Reports oliguria *Musculoskeletal Musculoskeletal: Reports system reviewed and no additional complaints, except as documented Integumentary/Breasts Skin/Breast: Reports system reviewed and no additional complaints, except as documented *Neurologic Neurologic: Reports system reviewed and no additional complaints, except as documented Psychiatric Psychiatric: Reports system reviewed and no additional complaints, except as documented Endocrine Endocrine: Reports system reviewed and no additional complaints, except as documented Hematologic/Lymphatic Hematologic/Lymphatic: Reports system reviewed and no additional complaints, except as documented Allergic/Immunologic Allergic/Immunologic: Reports system reviewed and no additional complaints, except as documented Meds Home Medications and Allergies Home Medications ?Medication ?Instructions ?Recorded ?Confirmed ?Type omeprazole 40 mg capsule,delayed 40 mg PO DAILY 10/15/21 05/17/24 History release sertraline 50 mg tablet 100 mg PO HS 10/15/21 05/17/24 History metoprolol succinate 25 mg 25 mg PO DAILY #90 tabs 09/28/23 05/17/24 Rx tablet,extended release 24 hr insulin glargine U-300 conc 300 46 unit SQ HS 01/16/24 05/17/24 History unit/mL (3 mL) subcutaneous pen (Toujeo Max U-300 SoloStar) blood sugar diagnostic (Accu-Chek 01/17/24 05/17/24 History Guide test strips) lancets (Accu-Chek Softclix 01/17/24 05/17/24 History Lancets) ranolazine 500 mg tablet,extended 500 mg PO BID 30 days #60 tabs 01/17/24 05/17/24 Rx release,12 hr ciprofloxacin HCl 500 mg tablet 500 mg PO BID 05/17/24 05/17/24 History duloxetine 30 mg capsule,delayed 30 mg PO DAILY 05/17/24 05/17/24 History release hydrocodone 5 mg-acetaminophen 325 1 tab PO Q6 PRN Pain 05/17/24 05/17/24 History mg tablet metronidazole 500 mg tablet 500 mg PO TID 05/17/24 05/17/24 History midodrine 5 mg tablet 5 mg PO TID 05/17/24 05/17/24 History nitroglycerin 0.4 mg sublingual 0.4 mg sublingual Q5MINP PRN Chest 05/17/24 05/17/24 History tablet Pain nitroglycerin 0.4 mg sublingual 0.4 mg sublingual Q5MINP PRN Chest 05/17/24 05/17/24 History tablet Pain pregabalin 25 mg capsule 25 mg PO HS 05/17/24 05/17/24 History rosuvastatin 40 mg tablet 40 mg PO DAILY 05/17/24 05/17/24 History terbinafine HCl 250 mg tablet 250 mg PO DAILY 05/17/24 05/17/24 History New Prescriptions to Start Prescriptions: Allergies Allergy/AdvReac Type Severity Reaction Status Date / Time bee venom protein (honey bee) Allergy Anaphylaxis Verified 05/18/24 02:16 gabapentin Allergy Anaphylaxis Verified 05/18/24 02:16 Exam Data for Last 24 hours Vital signs and Labs for Last 24 Hours: Temp Pulse Resp BP Pulse Ox O2 Del Method 98 F 80 16 98/73 L 97 Room Air 05/18/24 02:20 05/18/24 02:20 05/18/24 02:20 05/18/24 02:20 05/18/24 02:01 05/18/24 02:20 Laboratory Results - last 24 hr 05/17/24 23:35: Urine Color Yellow, Urine Appearance Clear, Urine pH 5.0, Ur Specific [place] 1.015, Urine Protein Negative, Urine Glucose (UA) Negative, Urine Ketones Negative, Urine Blood Negative, Urine Nitrate Negative, Urine Bilirubin Negative, Urine Urobilinogen 0.2, Ur Leukocyte Esterase Negative, Urine WBC Occasional, Ur Squamous Epith Cells Occasional, Calcium Oxalate Crystal 1+, Urine Bacteria Trace 05/17/24 : WBC 13.4 H, RBC 5.21, Hgb 15.9, Hct 46.0, MCV 88.3, MCH 30.5, MCHC 34.6, RDW 13.6, Plt Count 231, MPV 10.5 H, Neut % (Auto) 48.3, Lymph % (Auto) 41.2, [place] % (Auto) 8.2, Eos % (Auto) 1.4, Baso % (Auto) 0.7, Neut # (Auto) 6.5, Lymph # (Auto) 5.5 H, [place] # (Auto) 1.1 H, Eos # (Auto) 0.2, Baso # (Auto) 0.1, Sodium 139, Potassium 4.3, Chloride 104, Carbon Dioxide 24, Anion Gap 15.3 H, BUN 21 H, Creatinine 1.30 H, Estimated Creat Clear 75, Estimated GFR 55 L, Est GFR ( Amer) 67, Glucose 144 H, Lactate 1.4, Calcium 11.0 H, Total Bilirubin 0.4, AST 48, ALT 68, Alkaline Phosphatase 73, Total Protein 7.7 D, Albumin 4.5, Globulin 3.2, Albumin/Globulin Ratio 1.4, Lipase 93 05/18/24 01:00: Urine Color Brown, Urine Appearance Clear, Urine pH 5.0, Ur Specific [place] >= 1.030, Urine Protein Trace, Urine Glucose (UA) Negative, Urine Ketones Negative, Urine Blood Negative, Urine Nitrate Positive A, Urine Bilirubin Negative, Urine Urobilinogen 0.2, Ur Leukocyte Esterase Negative, Urine WBC 3-5, Ur Squamous Epith Cells 3-5, Calcium Oxalate Crystal Trace, Urine Bacteria 1+, Hyaline Casts 10-20, Urine Mucus 1+ 05/18/24 : Total Creatine Kinase 36 L I & O for Last 24 hours: Intake & Output 05/15/24 05/16/24 05/17/24 05/18/24 23:59 23:59 23:59 23:59 Weight 92.986 kg Constitutional Constitutional: no acute distress and obese *Routine HEENT Exam Head: Present normocephalic and atraumatic Eye: Present EOMI, PERRL and normal accommodation ENT: Present mucous membranes moist *Routine Neck Exam Neck: Present supple, full ROM and trachea midline *Routine Respiratory Exam Respiratory: Present CTA bilaterally, able to speak in complete sentences and symmetric chest movement *Routine Cardiovascular Exam Cardiovascular: Present RRR, Normal S1 and Normal S2 *Routine Abdominal Exam Abdominal: Present soft, normoactive bowel sounds and distended *Routine Rectal Exam Rectal:: deferred *Routine Genitalia Exam Genitalia:: normal male Comment:: Jackson catheter urine is concentrated in color with no sediment noted *Routine Extremities Exam Extremities: Present full ROM, pulses intact and normal capillary refill Routine Back/Spine/Pelvis Exam Back/Spine: Present full ROM *Routine Skin Exam Skin: Present intact, dry and warm *Routine Neurological Exam Neurological: Present alert, oriented X3, CN II-XII intact and moving all extremities Routine Psychiatric Exam Psychiatric: Present normal affect, normal thought process, cooperative, good insight and good judgment H&P: Result Impressions 63-year-old male who presents with known enlarged prostate history and has symptomology consistent with lower urinary tract symptoms. Patient is reporting decreased urinary output with dark-colored urine. Review of patient's chemistry shows an elevation in his creatinine numbers, calcium, and lowering of his GFR consistent with dehydration Assessment and Plan *Assessment and plan (1) RIGOBERTO (acute kidney injury): Status: Acute Category: Medical Code(s): N17.9 - Acute kidney failure, unspecified (2) BPH w urinary obs/LUTS: Status: Acute Category: Medical Code(s): N40.1 - Benign prostatic hyperplasia with lower urinary tract symptoms; N13.8 - Other obstructive and reflux uropathy (3) Oliguria: Status: Acute Category: Medical Code(s): R34 - Anuria and oliguria (4) Hypercalcemia: Status: Acute Category: Medical Code(s): E83.52 - Hypercalcemia (5) UTI (urinary tract infection): Status: Acute Qualifiers: Hematuria presence: without hematuria Urinary tract infection type: site unspecified Qualified Code(s): N39.0 - Urinary tract infection, site not specified Category: Medical Code(s): N39.0 - Urinary tract infection, site not specified (6) Dehydration: Status: Acute Category: Medical Code(s): E86.0 - Dehydration (7) Constipation: Status: Acute Qualifiers: Constipation type: unspecified constipation type Qualified Code(s): K59.00 - Constipation, unspecified Category: Medical Code(s): K59.00 - Constipation, unspecified (8) Leukocytosis: Status: Acute Qualifiers: Leukocytosis type: unspecified Qualified Code(s): D72.829 - Elevated white blood cell count, unspecified Category: Medical Code(s): D72.829 - Elevated white blood cell count, unspecified Plan Assessment: Acute kidney injury: Prerenal versus postrenal -Will give normal saline at 150 mL an hour -Obtain random urine sodium, random urine nitrogen, random protein creatinine ratio, and random urine creatinine -Obtain renal ultrasound -Will monitor patient's renal function daily -Avoid nephrotoxic drugs -Patient has enlarged prostate which may have related to obstructive urinary flow BPH with LUTS -Jackson catheter has been placed -Obtain PSA -Once med rec is updated, we will continue alpha 1 Oliguria -Hopefully with IV hydration this will improve -After 1 L of LR patient's heart rate has improved -He had a total of 300 of concentrated urine while in emergency room Hypercalcemia -Most likely in the setting of dehydration -Will give IV hydration hopefully this will improve -Obtain PTH -Review of last 2D echo obtained in January 2024 shows normal ventricular function-it is safe to give volume -If no improvement in patient's calcium level, will consider giving Zometa or calcitonin-due to patient's renal injury calcitonin would probably be better Urinary tract infection -1 g Rocephin IV daily -Will monitor patient's urine culture and tailor antibiotics to the culture sensitivity once posted Dehydration -Will give IV fluid as listed above Constipation -30 mg of lactulose p.o. x 1 -2 tabs of senna p.o. daily -250 mg of Colace daily -If no adequate bowel movement, will give enema Leukocytosis -Will monitor patient CBC daily -Blood cultures x 2 -Procalcitonin in a.m. [facility] as tolerated Cardiac/1800 ADA diet CBC/BMP daily 5000 units of heparin subcu 3 times daily 5 mg of [place] p.o. every 4 hours as needed moderate pain Sliding scale insulin before meals and at bedtime with mild scale coverage 2 mg morphine IV push every 4 hours as needed severe pain 4 mg Zofran IV push every 8 hours pain nausea vomit Full code I will discussed this case with attending physician Dr. Cantu and I look forward to more input
[2024-05-18] MEDS: 0.9 % SODIUM CHLORIDE 1000ML 1,000 ML 100 ML IV (02:37)
[2024-05-18 02:55] LABS: Creatinine,Urine Random 301 mg/dL (Not Estab.); Urea Nitrogen,Urine Random 618 mg/dl (Not Estab.)
[2024-05-18] MEDS: MORPHINE 2MG/ML SYRINGE 2 MG IV ×3 (03:28→10:54)
[2024-05-18 05:54] LABS: Chloride 103 mmol/L (98-107)
[2024-05-18 05:55] LABS: Albumin Level 3.6 g/dl (3.5-5.0); Sodium 138 mmol/L (136-145)
[2024-05-18 05:57] LABS: Blood Urea Nitrogen 19 mg/dl (9-20); Creatinine Clearance Estimated 91 mL/min (50-200); Estimated Glomerular Filt Rate 67 ml/min (>60); GFR (African American) 81 ML/MIN (>60)
[2024-05-18 05:58] LABS: Alanine Aminotransferase 51 U/L (12-78); Albumin/Globulin Ratio 1.5 (1.1-1.8); Alkaline Phosphatase 53 U/L (38-126); Aspartate Amino Transferase 37 U/L (17-59); Bilirubin,Total 0.3 mg/dl (0.2-1.3); Calcium 9.6 mg/dl (8.4-10.2); Carbon Dioxide 26 mmol/L (22.0-30.0); Globulin 2.4 g/dL (1.3-3.2); Glucose 141 mg/dl (74-100)
[2024-05-18 06:03] LABS: Basophils % 0.4 % (0.1-2.0); Eosinophils # 0.2 K/mm3 (0.0-0.4); Eosinophils % 2.4 % (0.1-12.0); Hematocrit 39.1 % (42.0-52.0); Lymphocytes # 4.5 K/mm3 (0.7-4.5); Lymphocytes % 48.3 % (10-50); Mean Corpuscular HGB Conc 34.3 g/dL (31.8-35.4); Mean Corpuscular Hemoglobin 30.9 pg (27.0-31.2); Mean Corpuscular Volume 90.1 fl (80-94); Mean Platelet Volume 10.4 fl (7.4-10.4); Monocytes # 0.7 K/mm3 (0.1-1.0); Monocytes % 7.4 % (1.7-9.3); Neutrophils # 3.8 K/mm3 (1.8-7.8); Neutrophils % 41.3 % (37.0-80.0); Nucleated Red Blood Cells # 0 10^3/uL; Nucleated Red Blood Cells % 0 %; Platelet Count 168 K/mm3 (142-424); Red Blood Count 4.34 M/mm3 (4.60-6.20); Red Cell Distribution Width 13.6 % (11.5-17.5); Red Cell Distribution Width-SD 44.6 fL; White Blood Count 9.3 K/mm3 (4.8-10.8)
[2024-05-18 06:12] LABS: Hemoglobin 13.3 g/dL (14.1-18.0)
[2024-05-18] MEDS: HEPARIN SODIUM 5,000 UNIT/ML VIAL 5000 UNIT SUBCUT ×2 (07:57→12:41)
[2024-05-18] MEDS: DOCUSATE SODIUM 250MG CAPSULE 250 MG PO (07:58)
[2024-05-18] MEDS: LACTULOSE 20GM/30ML UDC 30 GM PO (07:58)
[2024-05-18] MEDS: SENNA 8.6MG TABLET 17.2 MG PO (07:59)
[2024-05-18] MEDS: POLYETHYLENE GLYCOL 3350 17 GM PACKET 34 GM PO (08:11)
[2024-05-18] MEDS: BISACODYL 5MG TABLET 10 MG PO (08:12)
[2024-05-18 08:24] LABS: Procalcitonin 0.061 ng/mL (0.0-2.0)
--- NOTE | 2024-05-18 09:28 | HMH.PHAINT1 ---
Pharmacy Intervention Comments: HOME MEDICATION LIST VERIFIED USING LIST FROM OUTPATIENT PHARMACY
[2024-05-18] MEDS: HYDROCODONE/APAP 5/325 MG TABLET 1 TAB PO (10:14)
[2024-05-18 10:21] LABS: Prostate Specific Ag, Diagnost 2.54 ng/ml (0.0-4.0)
[2024-05-18 10:24] LABS: POC Glucose,Bedside 162 (70-110)
[2024-05-18] MEDS: humaLOG 100 UNITS/ML 10ML VIAL (SSI) SUBCUT (10:34)
--- NOTE | 2024-05-18 10:51 | PC.NURSE ---
okay to give morphine now.
[2024-05-18] MEDS: TAMSULOSIN 0.4MG CAPSULE 0.4 MG PO (10:54)
--- NOTE | 2024-05-18 12:08 | HMH.PTEV ---
Physical Therapy Evaluation Rehab PT IP Evaluation Start: 05/18/24 05:02 Freq: ONCE Status: Active Protocol: Document 05/18/24 10:10 GATITO (Rec: 05/18/24 12:08 GATITO [id number]) Subjective/History History History This is a 63-year-old male who has a past medical history significant for enlarged prostate- currently on alpha-1 therapy, cystic lung, atrial fibrillation (currently not on any anticoagulants), pericarditis, [place] status post 3 stents, hypertension, diabetes, who presents with a chief complaint of decreased urinary output and abdominal pain. Patient also reports that he has a pain stimulator to the left lower back that is implanted. He states that he lives with his girlfriend uses a walker or cane from time to time inside his house, but was otherwise independent. Subjective Subjective Patient presents supine in bed and verbalizes that he just returned from the bathroom. He c/o 9/10 pain and is exacerbated with urination. Pt is willing to ambulate with therapy this AM. [facility] How much help from another person do you currently need... Turning from your back to your side None while in a flat bed without using bedrails? Moving from lying on back to sitting on None the side of a flat bed without using bedrails? Moving to and from a bed to a chair ( None including a wheelchair)? Standing up from a chair using your arms None ? (e.g., wheelchair, bedside chair) Walking in hospital room? None Climbing 3-5 steps with a railing? None Mobility Score 24 Mobility Level [facility] Mobility Calculator Mobility 8 Walk 250 feet or more Rehab PT IP Eval Objective Appearance Patient Behavior Appropriate,Cooperative Patient Orientation Person,Place,Time Difficulty following instructions none Speech Pattern Clear,Appropriate Ambulation Patient Able to Ambulate Yes Ambulation Observation IP General Gait Pattern Observation Wide Based Gait Ambulation Distance (feet) 15 Ambulation Assistive Device None Ambulation Ability Contact Guard/Hand Hold Balance Ability to Arise Able, w/o using arms Sitting Balance Steady, safe Standing Balance Steady, wide stance Dynamic Sitting Balance Ability Normal Dynamic Standing Balance Ability Normal Transfers Bed Transfer Ability Independent Sit to Stand Bed Transfer Ability Contact Guard/Hand Hold Pain Abdomen Pain Intensity 9 Rehab PT IP prob,goals,plan Problems Date of Evaluation: 05/18/24 Discharge Plan PT Discharge Plan Pt is currently most appropriate to return home once medically stable for d/c. Skilled acute inpatient therapy is not currently indicated as patient is independent with transfers and ambulation, and will likely improve with pain management. Pt currently appears as if his increased amount of pain is limiting his ability to mobilize effectively. Eval Complexity Eval Charge Codes [id number] - High Complexity PHYSICIAN CERTIFICATION: I certify the specified therapy services for Tashi Martin JR are required, authorized, and reviewed every 30 days.
[2024-05-18] MEDS: MIDODRINE HCL 5 MG TABLET PO (13:34)
[2024-05-18] MEDS: DULOXETINE 30MG CAPSULE.DR 30 MG PO (13:34)
--- NOTE | 2024-05-18 15:15 | EXP.DC.SUM ---
General Admission date:: 05/18/24 HPI HPI HPI: This is a 63-year-old male who has a past medical history significant for enlarged prostate-currently on alpha-1 therapy, angina, coronary artery disease, cystic lung, atrial fibrillation (currently not on any anticoagulants), pericarditis, ND status post 3 stents, hyperlipidemia, hypertension, diabetes, heart murmur, and right bundle branch block who presents with a chief complaint of decreased urinary output and abdominal pain. Due to patient's symptoms, he presented to the emergency room for evaluation. While in the emergency room, patient had only minimal urinary output and his chemistries were consistent with an acute kidney injury. CT scan of the abdomen pelvis revealed a large amount of stool in the colon. Due to patient's persistent inability to urinate, a Jackson catheter was placed. Patient has been admitted for further management. During my evaluation of the patient, patient states he had a 2-day history of decreased urinary output. He voices he is normally voiding regularly and actually has urgency. He does voice prior history of enlarged prostate and currently prescribed Flomax. Patient states that he has been having no urinary output and the urine that he is able to void is bloody. Recently, patient was admitted to [place] for colitis. He was treated with agusto quinolones and Flagyl. Patient is still prescribed Flagyl and Cipro. Patient voices drinking at least a quart of water daily. He is also complaining of some lower abdominal pain. Patient also reports that he has a pain stimulator to the left lower back that is implanted. He voices no prior history of any urinary dysfunction. He is currently denying any flank pain, fever, chills, chest pain, shortness of breath, lightheadedness, dizziness, fever, chills, rigors, nausea, vomiting, or diarrhea. He reports his last bowel movement was 2 days ago. Additional pertinent vitals obtained include a white blood cell count of 13.4, heart rate of 121 now improved to the 80s, BUN 21, creatinine 1.30, GFR 55, blood glucose 144, calcium of 11, and urinalysis revealed positive nitrates/white blood cells 3-5/hyaline casts of 10-20/1+ bacteria. Hospital Course Hospital Course Hospital Course: Tashi Martin is a 63-year-old male who presented with abdominal pain and was admitted for nephrolithiasis, UTI. #Nephrolithiasis #UTI ? Acute onset left-sided back pain with radiation to his groin, UA from yesterday showing calcium oxalate crystals. ? There was also concern that patient was oliguric and thus Jackson was placed in the ED with minimal urine output. Patient has significant pain with the Jackson likely signifying that renal stone had passed, it was removed with alleviation of symptoms. ? Patient has a history of nephrolithiasis 30 years ago. He states he drinks 8 ounces of orange juice a day, takes vitamin C 500 mg, in addition to multivitamins putting him at a higher risk for calcium oxalate stones. Strongly encourage patient to stay well-hydrated, discontinue vitamin C supplementation and decrease orange juice intake. Patient is agreeable to this plan. ? Patient symptoms improved with Flomax, pain control with [place]. He will be discharged on the same. ? Advised to follow-up with PCP within 2 weeks. #Type 2 diabetes ? Hemoglobin A1c 9.2% in January 2024. Repeat pending at this time. ? Continue home Toujeo 46 units nightly, pregabalin. Blood sugars were presently stable during admission. ? Highly recommend patient to follow-up with his PCP for further evaluation management of his diabetes. #Orthostatic hypotension ? Continue home midodrine. #GERD ? Continue home omeprazole. #Low back pain with lumbar fusion #Anxiety/depression ? Continue home duloxetine. ? Neurostimulator in place. Planning to follow-up with pain management in 1 week. Total time spent on discharge: 40 minutes on chart review, counseling, documentation, and direct care with patient. Exam Data for Last 24 hours Vital signs and Labs for Last 24 Hours: Temp Pulse Resp BP Pulse Ox O2 Del Method 97.7 F 68 18 105/65 L 95 Room Air 05/18/24 11:24 05/18/24 11:24 05/18/24 11:24 05/18/24 11:24 05/18/24 11:24 05/18/24 11:24 Laboratory Results - last 24 hr 05/17/24 23:35: Urine Color Yellow, Urine Appearance Clear, Urine pH 5.0, Ur Specific [place] 1.015, Urine Protein Negative, Urine Glucose (UA) Negative, Urine Ketones Negative, Urine Blood Negative, Urine Nitrate Negative, Urine Bilirubin Negative, Urine Urobilinogen 0.2, Ur Leukocyte Esterase Negative, Urine WBC Occasional, Ur Squamous Epith Cells Occasional, Calcium Oxalate Crystal 1+, Urine Bacteria Trace 05/17/24 : WBC 13.4 H, RBC 5.21, Hgb 15.9, Hct 46.0, MCV 88.3, MCH 30.5, MCHC 34.6, RDW 13.6, Plt Count 231, MPV 10.5 H, Neut % (Auto) 48.3, Lymph % (Auto) 41.2, [place] % (Auto) 8.2, Eos % (Auto) 1.4, Baso % (Auto) 0.7, Neut # (Auto) 6.5, Lymph # (Auto) 5.5 H, [place] # (Auto) 1.1 H, Eos # (Auto) 0.2, Baso # (Auto) 0.1, Sodium 139, Potassium 4.3, Chloride 104, Carbon Dioxide 24, Anion Gap 15.3 H, BUN 21 H, Creatinine 1.30 H, Estimated Creat Clear 75, Estimated GFR 55 L, Est GFR ( Amer) 67, Glucose 144 H, Lactate 1.4, Calcium 11.0 H, Total Bilirubin 0.4, AST 48, ALT 68, Alkaline Phosphatase 73, Total Protein 7.7 D, Albumin 4.5, Globulin 3.2, Albumin/Globulin Ratio 1.4, Lipase 93 05/18/24 01:00: Urine Color Brown, Urine Appearance Clear, Urine pH 5.0, Ur Specific [place] >= 1.030, Urine Protein Trace, Urine Glucose (UA) Negative, Urine Ketones Negative, Urine Blood Negative, Urine Nitrate Positive A, Urine Bilirubin Negative, Urine Urobilinogen 0.2, Ur Leukocyte Esterase Negative, Urine WBC 3-5, Ur Squamous Epith Cells 3-5, Calcium Oxalate Crystal Trace, Urine Bacteria 1+, Hyaline Casts 10-20, Urine Mucus 1+, Ur Random Urea Nitrogn 618, Urine Creatinine 301, Urine Sodium 56.0 05/18/24 05:19: WBC 9.3 D, RBC 4.34 L, Hgb 13.3 L D, Hct 39.1 L, MCV 90.1, MCH 30.9, MCHC 34.3, RDW 13.6, Plt Count 168 D, MPV 10.4, Neut % (Auto) 41.3, Lymph % (Auto) 48.3, [place] % (Auto) 7.4, Eos % (Auto) 2.4, Baso % (Auto) 0.4, Neut # (Auto) 3.8, Lymph # (Auto) 4.5, [place] # (Auto) 0.7, Eos # (Auto) 0.2, Baso # (Auto) 0.0, Sodium 138, Potassium 4.0, Chloride 103, Carbon Dioxide 26, Anion Gap 13.0, BUN 19, Creatinine 1.10, Estimated Creat Clear 91, Estimated GFR 67, Est GFR ( Amer) 81 D, Glucose 141 H, Calcium 9.6, Total Bilirubin 0.3, AST 37, ALT 51, Alkaline Phosphatase 53, Total Protein 6.0 L, Albumin 3.6 D, Globulin 2.4, Albumin/Globulin Ratio 1.5, Prostate Specific Ag 2.54, Procalcitonin 0.061 05/18/24 10:16: POC Glucose 162 H 05/18/24 : Total Creatine Kinase 36 L I & O for Last 24 hours: Intake & Output 05/15/24 05/16/24 05/17/24 05/18/24 23:59 23:59 23:59 23:59 Intake Total 600 / 600 Output Total 550 / 550 Balance 50 / 50 Weight 92.986 kg 95.663 kg Constitutional Constitutional: no acute distress *Routine HEENT Exam Head: Present normocephalic Eye: Present EOMI and PERRL ENT: Present mucous membranes moist *Routine Neck Exam Neck: Present supple; Absent lymphadenopathy *Routine Respiratory Exam Respiratory: Present CTA bilaterally *Routine Cardiovascular Exam Cardiovascular: Present RRR *Routine Abdominal Exam Abdominal: Present soft and normoactive bowel sounds; Absent tenderness *Routine Extremities Exam Extremities: Absent cyanosis, clubbing or edema *Routine Skin Exam Skin: Present warm; Absent rash *Routine Neurological Exam Neurological: Present alert and oriented X3 Results Data Completed and Pending Labs on day of discharge: Labs from last 24 hours 05/18/24 05/18/24 05/18/24 Unknown 10:16 05:19 WBC 9.3 D RBC 4.34 L Hgb 13.3 L D Hct 39.1 L MCV 90.1 MCH 30.9 MCHC 34.3 RDW 13.6 Plt Count 168 D MPV 10.4 Neut % (Auto) 41.3 Lymph % (Auto) 48.3 [place] % (Auto) 7.4 Eos % (Auto) 2.4 Baso % (Auto) 0.4 Neut # (Auto) 3.8 Lymph # (Auto) 4.5 [place] # (Auto) 0.7 Eos # (Auto) 0.2 Baso # (Auto) 0.0 Sodium 138 Potassium 4.0 Chloride 103 Carbon Dioxide 26 Anion Gap 13.0 BUN 19 Creatinine 1.10 Estimated Creat Clear 91 Estimated GFR 67 Est GFR ( Amer) 81 D Glucose 141 H POC Glucose 162 H Lactate Calcium 9.6 Total Bilirubin 0.3 AST 37 ALT 51 Alkaline Phosphatase 53 Total Creatine Kinase 36 L Total Protein 6.0 L Albumin 3.6 D Globulin 2.4 Albumin/Globulin Ratio 1.5 Lipase Prostate Specific Ag 2.54 Procalcitonin 0.061 Urine Color Urine Appearance Urine pH Ur Specific [place] Urine Protein Urine Glucose (UA) Urine Ketones Urine Blood Urine Nitrate Urine Bilirubin Urine Urobilinogen Ur Leukocyte Esterase Urine WBC Ur Squamous Epith Cells Calcium Oxalate Crystal Urine Bacteria Hyaline Casts Urine Mucus Ur Random Urea Nitrogn Urine Creatinine Urine Sodium 05/18/24 05/17/24 05/17/24 01:00 Unknown 23:35 WBC 13.4 H RBC 5.21 Hgb 15.9 Hct 46.0 MCV 88.3 MCH 30.5 MCHC 34.6 RDW 13.6 Plt Count 231 MPV 10.5 H Neut % (Auto) 48.3 Lymph % (Auto) 41.2 [place] % (Auto) 8.2 Eos % (Auto) 1.4 Baso % (Auto) 0.7 Neut # (Auto) 6.5 Lymph # (Auto) 5.5 H [place] # (Auto) 1.1 H Eos # (Auto) 0.2 Baso # (Auto) 0.1 Sodium 139 Potassium 4.3 Chloride 104 Carbon Dioxide 24 Anion Gap 15.3 H BUN 21 H Creatinine 1.30 H Estimated Creat Clear 75 Estimated GFR 55 L Est GFR ( Amer) 67 Glucose 144 H POC Glucose Lactate 1.4 Calcium 11.0 H Total Bilirubin 0.4 AST 48 ALT 68 Alkaline Phosphatase 73 Total Creatine Kinase Total Protein 7.7 D Albumin 4.5 Globulin 3.2 Albumin/Globulin Ratio 1.4 Lipase 93 Prostate Specific Ag Procalcitonin Urine Color Brown Yellow Urine Appearance Clear Clear Urine pH 5.0 5.0 Ur Specific [place] >= 1.030 1.015 Urine Protein Trace Negative Urine Glucose (UA) Negative Negative Urine Ketones Negative Negative Urine Blood Negative Negative Urine Nitrate Positive A Negative Urine Bilirubin Negative Negative Urine Urobilinogen 0.2 0.2 Ur Leukocyte Esterase Negative Negative Urine WBC 3-5 Occasional Ur Squamous Epith Cells 3-5 Occasional Calcium Oxalate Crystal Trace 1+ Urine Bacteria 1+ Trace Hyaline Casts 10-20 Urine Mucus 1+ Ur Random Urea Nitrogn 618 Urine Creatinine 301 Urine Sodium 56.0 DS: Diagnosis Discharge Diagnosis (1) BPH w urinary obs/LUTS: Status: Acute Code(s): N40.1 - Benign prostatic hyperplasia with lower urinary tract symptoms; N13.8 - Other obstructive and reflux uropathy (2) Oliguria: Status: Acute Code(s): R34 - Anuria and oliguria (3) Hypercalcemia: Status: Acute Code(s): E83.52 - Hypercalcemia (4) UTI (urinary tract infection): Status: Acute Code(s): N39.0 - Urinary tract infection, site not specified Qualifiers: Hematuria presence: without hematuria Urinary tract infection type: site unspecified Qualified Code(s): N39.0 - Urinary tract infection, site not specified (5) Dehydration: Status: Acute Code(s): E86.0 - Dehydration (6) Leukocytosis: Status: Acute Code(s): D72.829 - Elevated white blood cell count, unspecified Qualifiers: Leukocytosis type: unspecified Qualified Code(s): D72.829 - Elevated white blood cell count, unspecified (7) Nephrolithiasis: Status: Acute Code(s): N20.0 - Calculus of kidney Meds Home Medications and Allergies Home Medications ?Medication ?Instructions ?Recorded ?Confirmed ?Type omeprazole 40 mg capsule,delayed 40 mg PO DAILY 10/15/21 05/17/24 History release metoprolol succinate 25 mg 25 mg PO DAILY #90 tabs 09/28/23 05/17/24 Rx tablet,extended release 24 hr insulin glargine U-300 conc 300 46 unit SQ HS 01/16/24 05/17/24 History unit/mL (3 mL) subcutaneous pen (Toujeo Max U-300 SoloStar) blood sugar diagnostic (Accu-Chek 01/17/24 05/17/24 History Guide test strips) lancets (Accu-Chek Softclix 01/17/24 05/17/24 History Lancets) ranolazine 500 mg tablet,extended 500 mg PO BID 30 days #60 tabs 01/17/24 05/17/24 Rx release,12 hr duloxetine 30 mg capsule,delayed 30 mg PO DAILY 05/17/24 05/17/24 History release hydrocodone 5 mg-acetaminophen 325 1 tab PO Q6 PRN Pain 05/17/24 05/17/24 History mg tablet midodrine 5 mg tablet 5 mg PO TID 05/17/24 05/17/24 History nitroglycerin 0.4 mg sublingual 0.4 mg sublingual Q5MINP PRN Chest 05/17/24 05/17/24 History tablet Pain pregabalin 25 mg capsule 25 mg PO BID 05/17/24 05/18/24 History rosuvastatin 40 mg tablet 40 mg PO DAILY 05/17/24 05/17/24 History amoxicillin 500 mg-potassium 1 tab PO TID 7 days #21 tabs 05/18/24 Rx clavulanate 125 mg tablet (Augmentin) hydrocodone 5 mg-acetaminophen 325 1 tab PO Q6H PRN pain #12 tabs 05/18/24 Rx mg tablet tamsulosin 0.4 mg capsule 0.4 mg PO HS 30 days #30 caps 05/18/24 Rx New Prescriptions to Start Prescriptions: amoxicillin-pot clavulanate [Augmentin] Naveen Cantu hydrocodone-acetaminophen Naveen Cantu tamsulosin Naveen Cantu Allergies Allergy/AdvReac Type Severity Reaction Status Date / Time bee venom protein (honey bee) Allergy Anaphylaxis Verified 05/18/24 02:16 gabapentin Allergy Anaphylaxis Verified 05/18/24 02:16 Discharge Plan Disposition Patient Disposition: Home, Self-Care Condition: Fair Follow up Plan Follow up with: Mila Lange [Primary Care Provider] - 05/24/24 1:30 pm Prescriptions/Medication Reconciliation: New tamsulosin 0.4 mg Capsule 0.4 mg PO HS 30 Days Qty: 30 0RF amoxicillin-pot clavulanate [Augmentin] 500-125 mg tablet 1 tab PO TID 7 Days Qty: 21 0RF hydrocodone-acetaminophen 5-325 mg tablet 1 tab PO Q6H PRN (Reason: pain) Qty: 12 0RF Continued insulin glargine U-300 conc [Toujeo Max U-300 SoloStar] 300 unit/mL (3 mL) insulin pen 46 unit SQ HS (DME) Accu-Chek Guide test strips Strip MISCELLANEOUS (DME) lancets [Accu-Chek Softclix Lancets] Misc MISCELLANEOUS ranolazine 500 mg Tablet Extended Release 12 Hr 500 mg PO BID 30 Days Qty: 60 0RF hydrocodone-acetaminophen 5-325 mg tablet 1 tab PO Q6 PRN (Reason: Pain) midodrine 5 mg tablet 5 mg PO TID metronidazole 500 mg tablet 500 mg PO TID Rx Instructions: LAST DOSE -05/19/24 ciprofloxacin HCl 500 mg tablet 500 mg PO BID Rx Instructions: LAST DOSE 05/19/24 nitroglycerin 0.4 mg tablet, sublingual 0.4 mg sublingual Q5MINP PRN (Reason: Chest Pain) rosuvastatin 40 mg tablet 40 mg PO DAILY duloxetine 30 mg capsule,delayed release(DR/EC) 30 mg PO DAILY pregabalin 25 mg capsule 25 mg PO BID omeprazole 40 mg Capsule,Delayed Release(Dr/Ec) 40 mg PO DAILY metoprolol succinate 25 mg Tablet Extended Release 24 Hr 25 mg PO DAILY Qty: 90 0RF Problem Reconciliation Problems Reviewed?: Yes Patient Discharge Instructions Print Language: Belarusian Providers Primary Care Provider: Mila Lange Admit Provider: Naveen Cantu Attending Provider: Naveen Cantu
[2024-05-18 18:31] LABS: Hemoglobin A1C 6.7 % (4.0-6.0)
[2024-05-19 11:02] LABS: Albumin, U 12.1 ug/mL (Not Estab.); Albumin/Creatinine Ratio 4 mg/g creat (0-29); Creatinine, Urine 276.1 mg/dL (Not Estab.)
--- NOTE | 2024-05-22 10:15 | SW/DCPLANNER ---
Patient was a re admit. Will make a follow up phone call when the patient discharges this next time. Tianna Jimenez
[2024-05-24 21:12] LABS: PTH Related Peptide < 2.0 pmol/L (.)
== END 2024-05-18 16:12 | disposition home or self-care (01) ==
LOC: ER 05-18 02:03 → 2ND 05-18 04:54
PROVIDERS: Emergency Medicine; Nurse Practitioner Family; Admitting Provider Student in an Organized Health Care Education/Training Program; Emergency Provider Emergency Medicine; PCP Family Medicine; Visit Provider Student in an Organized Health Care Education/Training Program
DX: N17.9 Acute kidney failure, unspecified (principal); N40.1 Benign prostatic hyperplasia with lower urinary tract symptoms; N13.8 Other obstructive and reflux uropathy; R34 Anuria and oliguria; E83.52 Hypercalcemia; D72.829 Elevated white blood cell count, unspecified; N20.0 Calculus of kidney; K59.00 Constipation, unspecified; I25.119 Atherosclerotic heart disease of native coronary artery with unspecified angina pectoris; I45.2 Bifascicular block; I25.2 Old myocardial infarction; I10 Essential (primary) hypertension; Z95.5 Presence of coronary angioplasty implant and graft; E78.5 Hyperlipidemia, unspecified; I95.1 Orthostatic hypotension; E11.9 Type 2 diabetes mellitus without complications; I48.91 Unspecified atrial fibrillation; Q33.0 Congenital cystic lung; K21.9 Gastro-esophageal reflux disease without esophagitis; R01.1 Cardiac murmur, unspecified; R32 Unspecified urinary incontinence; K52.9 Noninfective gastroenteritis and colitis, unspecified; Z96.82 Presence of neurostimulator; I49.9 Cardiac arrhythmia, unspecified; Z88.8 Allergy status to other drugs, medicaments and biological substances; Z98.890 Other specified postprocedural states; Z91.030 Bee allergy status; Z79.4 Long term (current) use of insulin; Z79.2 Long term (current) use of antibiotics; Z79.891 Long term (current) use of opiate analgesic; Z79.899 Other long term (current) drug therapy; Z82.5 Family history of asthma and other chronic lower respiratory diseases; Z82.49 Family history of ischemic heart disease and other diseases of the circulatory system; Z82.3 Family history of stroke; Z80.9 Family history of malignant neoplasm, unspecified; Z83.438 Family history of other disorder of lipoprotein metabolism and other lipidemia; Z99.89 Dependence on other enabling machines and devices
CPT/HCPCS: 36415; 51702; 74177; 76770; 80053; 81001; 82043; 82397; 82550; 82570; 82962; 83036; 83605; 83690; 84145; 84153; 84540; 85025; 87040; 87086; 97163; 99285; G0378; J0131; J0696; J1644; J1885; J2270; J2405; J7030; J7120; Q9967

== ENCOUNTER 2024-05-21 19:32 | Observation (INO) | payer MEDICARE, SELFPAY ==
--- NOTE | 2024-05-21 19:46 | ECG_ITS ---
APPROVED REPORT Exam: Resting ECG HR:79 bpm ECG Measurements Heart Rate 79 AXES DE 310 P 220 QRSd 142 QRS -68 QT 425 T -30 QTc 460 Conclusion ELECTRONIC ATRIAL PACEMAKER ELECTRONIC VENTRICULAR PACEMAKER ABNORMAL RHYTHM ECG UNCONFIRMED REPORT Electronically signed by : Sam Montenegro, 05/21/2024 23:00:57
[2024-05-21 19:53] VITALS: BP 72/40; BP 79/53; PULSE 80; RESP 14; TEMP 36.5; O2SAT 93; BMI 27.8
--- NOTE | 2024-05-21 19:57 | CT_ITS ---
PROCEDURE INFORMATION: Exam: CT Abdomen And Pelvis With Contrast Exam date and time: 05/21/2024 8:29 PM Age: 63 years old Clinical indication: Abdominal pain; Additional info: Right flank pain, septic shock TECHNIQUE: Imaging protocol: Computed tomography of the abdomen and pelvis with contrast. Radiation optimization: All CT scans at this facility use at least one of these dose optimization techniques: automated exposure control; mA and/or kV adjustment per patient size (includes targeted exams where dose is matched to clinical indication); or iterative reconstruction. Contrast material: ISOVUE; Contrast volume: 75 ml; Contrast route: IV; COMPARISON: CT ABDOMEN PELVIS W CON 05/17/2024 10:36 PM FINDINGS: Tubes, catheters and devices: Neurostimulator in the thoracic canal Lungs: Paraseptal Emphysematous changes in the lower lobes Coronary arteries: Coronary artery calcifications may indicate coronary artery disease. Liver: Subcentimeter low attenuation area in the liver is too small for characterization. Gallbladder and biliary ducts: Cholecystectomy Pancreas: Pancreatic atrophy Spleen: Normal. No splenomegaly. Adrenal glands: Normal. No mass. Kidneys and ureters: 2.3 cm simple cyst left kidney . No follow-up imaging recommended . Stomach and bowel: 2.2 cm collection of air and debris projecting off of the 3rd duodenum. Most likely represents duodenal diverticulum., Less likely duodenal ulcer. Bowel wall thickening in the jejunum may represent enteritis in the appropriate clinical setting.. Diverticulosis of the rectosigmoid. No diverticulitis. Findings consistent with constipation. Appendix: Normal appendix Intraperitoneal space: Unremarkable. No free air. No significant fluid collection. Vasculature: Unremarkable. No abdominal aortic aneurysm. Lymph nodes: Unremarkable. No enlarged lymph nodes. Urinary bladder: Unremarkable as visualized. Reproductive: Unremarkable as visualized. Bones/joints: Unremarkable. No acute fracture. Soft tissues: Unremarkable. IMPRESSION: 1. 2.2 cm collection of air and debris projecting off of the 3rd duodenum. Most likely represents duodenal diverticulum., Less likely duodenal ulcer. 2. Bowel wall thickening in the jejunum may represent enteritis in the appropriate clinical setting.. COMMENTS: Consistent with the [employer]'s Incidental Findings Committee white paper (J Am Silverio Radiol 2018): Any incidental renal lesion less than 1 cm or classified as too small to characterize, or any incidental cystic renal lesion characterized as simple-appearing, is likely benign. No follow-up imaging is recommended for these lesions per consensus recommendations based on imaging criteria.
--- NOTE | 2024-05-21 19:57 | XR_ITS ---
PROCEDURE INFORMATION: Exam: XR Chest Exam date and time: 05/21/2024 8:33 PM Age: 63 years old Clinical indication: Other: Sepsis TECHNIQUE: Imaging protocol: Radiologic exam of the chest. Views: 1 view. COMPARISON: CT ANGIO CHEST PE PROTOCOL 01/16/2024 1:24 PM FINDINGS: Tubes, catheters and devices: Neurostimulator overlies the thoracic canal Lungs: Bibasilar atelectasis. No consolidation. Pleural spaces: Unremarkable. No pleural effusion. No pneumothorax. Heart/Mediastinum: Unremarkable. No cardiomegaly. Bones/joints: Unremarkable. IMPRESSION: No acute findings.
[2024-05-21 20:00] VITALS: PULSE 65
--- NOTE | 2024-05-21 20:01 | HMH.EDGENADL ---
Discharge Plan Disposition Patient Disposition: Admitted Condition: Fair Chief Complaint: Weakness Clinical Impressions Clinical Impression: Septic shock, Right flank pain Discharge ED Provider: Brice Montenegro General Adult HPI General Chief complaint: Weakness Stated complaint: weakness Time Seen by Provider: 05/21/24 19:41 Mode of Arrival: Wheelchair Source of Information: Patient and Relative Description of Symptoms (Recalled from ER Triage Doc. by RN): Patient to ED in wheelchair after being helped out of personal vehicle. Patient states that approx 1500 this afternoon he started to feel weak and felt like his blood pressure was dropping. Patient states that he is also having severe right flank pain to which he was seen for several days ago per our ED. Patient states that his weakness is bilateral and generalized. Denies numbness or tingling or LOS in any extremity. History of Present Illness HPI narrative: Patient is a 63-year-old male presenting today with generalized weakness and right flank pain. States that he was recently in the hospital and on chart review was found to have oliguria acute kidney injury had a catheterized urine sample and a CT scan that showed prostate enlargement his cath UA had a nitrate positive urinalysis as well as calcium oxalate crystals but no definitive kidney stone was seen on the CT scan. Patient was under the impression that that was his primary diagnosis being a kidney stone but on review of his records there is no definitive evidence of a kidney stone. There is some diagnostic uncertainty. Patient states he never felt better after being in the hospital. And that today he suddenly and significantly worsened having severe generalized weakness and worsening of his right sided flank pain particularly in the CVA region. Denies any hematuria or abdominal pain. Also states that a few weeks ago he was in the hospital at [facility] with a diagnosis of colitis. He was so weak that he had to be pulled out of his vehicle today. Related Data Home Medications ?Medication ?Instructions ?Recorded ?Confirmed omeprazole 40 mg capsule,delayed 40 mg PO DAILY 10/15/21 05/17/24 release insulin glargine U-300 conc 300 46 unit SQ HS 01/16/24 05/17/24 unit/mL (3 mL) subcutaneous pen (Toujeo Max U-300 SoloStar) blood sugar diagnostic (Accu-Chek 01/17/24 05/17/24 Guide test strips) lancets (Accu-Chek Softclix 01/17/24 05/17/24 Lancets) duloxetine 30 mg capsule,delayed 30 mg PO DAILY 05/17/24 05/17/24 release hydrocodone 5 mg-acetaminophen 325 1 tab PO Q6 PRN Pain 05/17/24 05/17/24 mg tablet midodrine 5 mg tablet 5 mg PO TID 05/17/24 05/17/24 nitroglycerin 0.4 mg sublingual 0.4 mg sublingual Q5MINP PRN Chest 05/17/24 05/17/24 tablet Pain pregabalin 25 mg capsule 25 mg PO BID 05/17/24 05/18/24 rosuvastatin 40 mg tablet 40 mg PO DAILY 05/17/24 05/17/24 Previous Rx's ?Medication ?Instructions ?Recorded metoprolol succinate 25 mg 25 mg PO DAILY #90 tabs 09/28/23 tablet,extended release 24 hr ranolazine 500 mg tablet,extended 500 mg PO BID 30 days #60 tabs 01/17/24 release,12 hr amoxicillin 500 mg-potassium 1 tab PO TID 7 days #21 tabs 05/18/24 clavulanate 125 mg tablet (Augmentin) hydrocodone 5 mg-acetaminophen 325 1 tab PO Q6H PRN pain #12 tabs 05/18/24 mg tablet tamsulosin 0.4 mg capsule 0.4 mg PO HS 30 days #30 caps 05/18/24 Allergies Allergy/AdvReac Type Severity Reaction Status Date / Time bee venom protein (honey bee) Allergy Anaphylaxis Verified 05/18/24 02:16 gabapentin Allergy Anaphylaxis Verified 05/18/24 02:16 [facility] Disclaimer: The information contained in this section may have been updated after the patient was seen, as this information can be updated by other users. Medical History (Updated 05/21/24 @ 22:13 by Brice Montenegro MD) Enlarged prostate Dizziness Angina pectoris Coronary artery disease Syncope Cystic lung, congenital History of pneumothorax Atrial fibrillation and flutter Presence of stent in LAD coronary artery Pericardial effusion without cardiac tamponade PNA (pneumonia) Diabetes GERD (gastroesophageal reflux disease) Pericarditis Angina at rest History of heart attack Hyperlipidemia Palpitations Hypertension Heart murmur Arrhythmia History of left heart catheterization (LHC) RBBB (right bundle branch block with left anterior fascicular block) Surgical History Hx of heart artery stent Previous back surgery Family History Other Family history of COPD (chronic obstructive pulmonary disease) Family history of hyperlipidemia Family history of hypertension Family history of myocardial infarction Family history of stroke Lung cancer Social History (Updated 01/16/24 @ 17:20 by Katarzyna Mathews RN) Smoking Status: Current every day smoker alcohol intake: current current occupational status: previously employed and disabled Travel in the last 8 weeks: None Have you lived/traveled outside [place] in past 30 days?: No Contact w/someone who lives/traveled outside US past 30 days?: No Exposure to someone with infectious disease in past 14 days?: No Do you have a fever (greater than 100.4 F or 38 C)?: No Have you tested positive for COVID-19: No Exposed to someone with COVID-19 in past 14 days?: No Do you have a sore throat?: No Do you have a cough?: No Do you have any weakness?: No Do you have any diarrhea?: No Are you experiencing any unusual bleeding?: No Do you have any muscle aches/pain?: No Do you have any abdominal pain?: No Are you experiencing loss of taste or smell?: No Other Medical History Have you received the Flu Vaccine for this season: No Have you received the Pneumonia Vaccine: No ROS Obtained: Yes All systems reviewed & no additional complaints except as documented Physical Exam General General appearance: in distress (Very ill-appearing diaphoretic pale) Respiratory Respiratory exam: Present normal lung sounds bilaterally; Absent respiratory distress Cardiovascular Cardiovascular exam: Present regular rate, normal rhythm and other (Cool extremities diaphoretic) Abdominal Exam Abdominal exam: Present soft; Absent distention or tenderness Back Exam Back exam: Present CVA tenderness (R) Neurological Exam Neurological exam: Present alert and oriented X3 Medical Decision Making Medical Records Screening: Per USPSTF and CDC recommendations, given the prevalence of disease in our region, it is our hospital?s policy to screen for HIV and viral Hepatitis for all patients aged 18 and over and those with ongoing risk factors. Moshe Inquiry Pt receiving controlled substance: No Vital Signs: 05/21/24 19:53 05/21/24 20:03 05/21/24 20:51 Temperature 97.7 F Temperature Source Oral Pulse Rate 77 65 Pulse Rate [Right] 80 Respiratory Rate 14 20 16 Blood Pressure 89/59 L 89/63 L Blood Pressure [Left Arm] 72/40 L Blood Pressure [Right Arm] 79/53 L Blood Pressure Mean [Left Arm] 50 Blood Pressure Mean [Right Arm] 61 Blood Pressure Source [Left Arm] Manual Cuff/ Auscultation Blood Pressure Source [Right Arm] Automatic Cuff Blood Pressure Position [Left Arm] Supine Blood Pressure Position [Right Arm] Supine 02 Sat by Pulse Oximetry 93 L 95 95 Oxygen Delivery Method Room Air Lab Data Lab results reviewed: Yes I reviewed the patient's lab results. Lab Results 05/21/24 18:36: WBC 11.9 H, RBC 5.01, Hgb 15.6, Hct 45.4, MCV 90.6, MCH 31.1, MCHC 34.4, RDW 13.6, Plt Count 257 D, MPV 10.7 H, Neut % (Auto) 56.0, Lymph % (Auto) 35.2, Hinds % (Auto) 6.2, Eos % (Auto) 1.5, Baso % (Auto) 0.8, Neut # (Auto) 6.6, Lymph # (Auto) 4.2, Hinds # (Auto) 0.7, Eos # (Auto) 0.2, Baso # (Auto) 0.1, PT 10.5, INR 0.93, Sodium 139, Potassium 5.5 H, Chloride 102, Carbon Dioxide 26, Anion Gap 16.5 H, BUN 26 H, Creatinine 1.60 H, Estimated Creat Clear 61, Estimated GFR 44 L, Est GFR ( Amer) 53 L, Glucose 169 H, Calcium 9.8, Total Bilirubin 0.4, AST 43, ALT 43, Alkaline Phosphatase 66, Troponin I < 0.01, Total Protein 7.9 D, Albumin 4.7, Globulin 3.2, Albumin/Globulin Ratio 1.5, Lipase 87 05/21/24 19:56: VBG pH 7.31, VBG pCO2 52.8 H, VBG pO2 25.7 L, VBG HCO3 26.2, VBG Total CO2 27.8 H, VBG O2 Saturation 47.3 L, VBG Base Excess 0.0, VBG Lactic Acid 2.6 H 05/21/24 21:30: Urine Color Yellow, Urine Appearance Clear, Urine pH 7.0, Ur Specific Wylie 1.010, Urine Protein Negative, Urine Glucose (UA) Negative, Urine Ketones Negative, Urine Blood Negative, Urine Nitrate Negative, Urine Bilirubin Negative, Urine Urobilinogen 0.2, Ur Leukocyte Esterase Negative, Urine RBC Occasional, Urine WBC 3-5, Ur Squamous Epith Cells None, Urine Bacteria Trace 05/21/24 18:36 05/21/24 18:36 Orders (Tests/Meds): ED MEDICATIONS Generic Name Dose Route Start Last Admin Trade Name Fretyler PRN Reason Stop Dose Admin Vancomycin HCl 2,250 mg/ 250 mls @ 125 mls/hr 05/21/24 20:15 05/21/24 21:05 Sodium Chloride IV 05/21/24 22:14 125 mls/hr ONCE ONE Administration Miscellaneous 1 each 05/21/24 20:15 05/21/24 20:21 Vancomycin Consult Request NOTAPPLIC 06/20/24 20:14 1 each CONSULT PHARMACY YESSENIA Administration Sodium Chloride 10 ml 05/21/24 20:30 05/21/24 20:31 Sodium Chloride 0.9% 10ml Syr (Rad Only) IV 06/20/24 20:29 10 ml NEEDED PRN Administration Maintain IV Site Discontinued Medications Generic Name Dose Route Start Last Admin Trade Name Freq PRN Reason Stop Dose Admin Acetaminophen 1,000 mg 05/21/24 20:52 05/21/24 21:05 Acetaminophen 1,000mg/100ml Vial IV 05/21/24 20:53 1,000 mg ONCE ONE Administration Fentanyl Citrate 50 mcg 05/21/24 21:16 05/21/24 21:46 Fentanyl 100mcg/2ml Vial IV 05/21/24 21:17 50 mcg ONCE ONE Administration Lactated Ringer's 1,000 mls @ 999 mls/hr 05/21/24 20:00 05/21/24 20:52 Lactated Ringer's 1000 Ml Bag IV 05/21/24 22:00 999 mls/hr .Q1H1M YESSENIA Administration Piperacillin Sod/Tazobactam 50 mls @ 100 mls/hr 05/21/24 20:11 05/21/24 20:51 Sod 3.375 gm/ Sodium Chloride IV 05/21/24 20:40 100 mls/hr ONCE ONE Administration Iopamidol 75 ml 05/21/24 20:30 05/21/24 20:31 Iopamidol-370 (76%);100ml Bottle IV 05/21/24 20:31 75 ml ONCE ONE Administration ORDERS Category Date Time Status CT abdomen pelvis w con Stat Cat Scan 05/21/24 19:57 Completed POCUS Point of Care (ER Only) Stat Exams 05/21/24 19:46 Completed XR chest portable Stat Exams 05/21/24 19:57 Completed CBC w/Auto Diff [Complete Blood Count Auto Diff] Stat Lab 05/21/24 18:36 Completed CMP [Comprehensive Metabolic Panel] Stat Lab 05/21/24 18:36 Completed Full Resp Panel w/COVID ([facility] Routine Lab 05/21/24 20:16 Received Lactate Venous Stat Lab 05/21/24 20:22 Ordered Lipase Stat Lab 05/21/24 18:36 Completed PT INR [Prothrombin Time INR] Stat Lab 05/21/24 18:36 Completed Trop I [Troponin I] Stat Lab 05/21/24 18:36 Completed Troponin I Q3H Lab 05/21/24 23:00 Ordered Troponin I Q3H Lab 05/22/24 02:00 Ordered UA [Urinalysis and Microscopic] Stat Lab 05/21/24 21:30 Completed Blood Culture Stat Micro 05/21/24 20:19 Received Venous Blood Gas Stat RT 05/21/24 19:56 Completed Tissue Perfus/Sepsis Re-Eval Sepsis Re-Evaluation Performed: Yes Date Performed: 05/21/24 Time Performed: 22:11 Medical Decision Narrative: 63-year-old presenting today with generalized weakness very ill-appearing and in distress with severe hypotension presumably from septic shock. Recently had a urinary tract infection which is the main diagnosis on the differential at the moment. He also has significant right CVA tenderness I presume that he has pyelonephritis. Will initiate IV fluids and antibiotics at this point. Aggressively we will try to volume resuscitate him. Additionally I will get a CT scan of his abdomen pelvis with contrast for further evaluation and management. Patient is critically ill will reassess shortly. Chest x-ray performed I personally interpreted shows no evidence of acute cardiopulmonary emergency. CT scan of the patient's abdomen pelvis performed which I personally interpreted shows no definitive intra-abdominal pathology specifically no stranding around the kidney which I was suspicious of. Patient clinically still has symptoms concerning for possible pyelonephritis but his urinalysis is also unremarkable which could be falsely sterilized from recent antibiotic use. No definitive source of infection with there is still a concern or presumed source of infection with his presentation. With nontraumatic shock. 2 L of IV fluid were administered to the patient and currently his blood pressure is 99/69 with a MAP of 78 heart rate has improved. Radiology read of the CT scan showed a air and debris-filled area in the third portion of the duodenum likely represents a duodenal diverticulum. Actually called and spoke with Dr. Nuñez to discuss this to make sure that he did not feel that this was an ulcer as the patient does have some symptomatic focal tenderness in this region. Very unlikely without significant stranding that this is a duodenal diverticulitis or duodenal ulcer however that remains on the differential. No emergent intervention needed at the moment. Patient is possibly bacteremic. Also full respiratory panel is pending. The remain some diagnostic uncertainty the patient is improved will need to be hospitalized for ongoing fluid resuscitation and antibiotics. Working diagnosis is septic shock due to a concern for infection but no definitive infectious source has been identified. No alternative source of patient's hypotension has been identified either. I spoke with hospital medicine who agreed to admit the patient for further management. Procedures Miscellaneous Procedure Procedure Performed: Limited ross ultrasound exam Indication undifferentiated hypotension Ultrasound was performed of the patient's heart a FAST exam, lungs, and aorta. Findings normal LVEF no pericardial effusion fast is negative normal lung sliding aorta with no evidence of AAA or intra-abdominal hematoma of note patient did have an enlarged prostate when evaluating the bladder Critical Care Critical Care Time Critical Care Time: Yes Attestation: On 05/21/24, the high probability of a clinically significant, sudden or life threatening deterioration of the following system(s) required my full and direct attention, intervention and personal management. The time I documented below is in addition to time spent performing reported procedures but includes the following listed in this critical care notation. Total Time Total Critical Care Time: 65
[2024-05-21] MEDS: LACTATED RINGERS 1000ML 1,000 ML 999 ML IV ×2 (20:02→20:52)
[2024-05-21 20:03] VITALS: BP 89/59; PULSE 77; RESP 20; O2SAT 95
[2024-05-21 20:03] LABS: Basophils # 0.1 K/mm3 (0-0.2); Basophils % 0.8 % (0.1-2.0); Eosinophils # 0.2 K/mm3 (0.0-0.4); Eosinophils % 1.5 % (0.1-12.0); Hematocrit 45.4 % (42.0-52.0); Hemoglobin 15.6 g/dL (14.1-18.0); Lymphocytes # 4.2 K/mm3 (0.7-4.5); Lymphocytes % 35.2 % (10-50); Mean Corpuscular HGB Conc 34.4 g/dL (31.8-35.4); Mean Corpuscular Hemoglobin 31.1 pg (27.0-31.2); Mean Corpuscular Volume 90.6 fl (80-94); Mean Platelet Volume 10.7 fl (7.4-10.4); Monocytes # 0.7 K/mm3 (0.1-1.0); Monocytes % 6.2 % (1.7-9.3); Neutrophils # 6.6 K/mm3 (1.8-7.8); Nucleated Red Blood Cells # 0 10^3/uL; Nucleated Red Blood Cells % 0 %; Platelet Count 257 K/mm3 (142-424); Red Blood Count 5.01 M/mm3 (4.60-6.20); Red Cell Distribution Width 13.6 % (11.5-17.5); Red Cell Distribution Width-SD 45.6 fL; White Blood Count 11.9 K/mm3 (4.8-10.8)
[2024-05-21 20:06] LABS: VBG HCO3 26.2 mmol/L (23-30); VBG Oxygen Saturation 47.3 % (50-70); VBG PCO2 52.8 mmol/L (35-51); VBG PH 7.31 mmol/L (7.31-7.41); VBG PO2 25.7 mmol/L (28-40); VBG Total CO2 27.8 mmol/L (23-27)
[2024-05-21 20:07] LABS: Lactate Venous 2.6 mmol/L (0.4-2.0)
[2024-05-21 20:10] LABS: INR 0.93 (0.9-1.1); Prothrombin Time 10.5 seconds (10.1-12.5)
[2024-05-21 20:12] LABS: Albumin Level 4.7 g/dl (3.5-5.0); Chloride 102 mmol/L (98-107); Sodium 139 mmol/L (136-145)
[2024-05-21 20:13] LABS: Potassium 5.5 mmoL/L (3.5-5.1)
[2024-05-21 20:15] LABS: Alanine Aminotransferase 43 U/L (12-78); Alkaline Phosphatase 66 U/L (38-126); Anion Gap 16.5 mEq/L (5-15); Aspartate Amino Transferase 43 U/L (17-59); Bilirubin,Total 0.4 mg/dl (0.2-1.3); Blood Urea Nitrogen 26 mg/dl (9-20); Carbon Dioxide 26 mmol/L (22.0-30.0); Creatinine Clearance Estimated 61 mL/min (50-200); Estimated Glomerular Filt Rate 44 ml/min (>60); GFR (African American) 53 ML/MIN (>60); Lipase 87 U/L (23-300); Total Protein,Serum 7.9 g/dl (6.3-8.2)
[2024-05-21 20:16] LABS: Calcium 9.8 mg/dl (8.4-10.2); Glucose 169 mg/dl (74-100)
[2024-05-21 20:18] LABS: Albumin/Globulin Ratio 1.5 (1.1-1.8); Globulin 3.2 g/dL (1.3-3.2)
[2024-05-21] MEDS: VANCOMYCIN CONSULT REQUEST 1 EACH NOTAPPLIC (20:21)
[2024-05-21 20:28] LABS: Troponin I < 0.01 ng/ml (0.00-0.034)
[2024-05-21 20:29] LABS: Adenovirus,PCR Not Detected (NotDetected); Bordetella Pertussis Not Detected (NotDetected); Chlamydophila Pneumoniae, PCR Not Detected (NotDetected); Coronavirus 19, PCR Not Detected (NotDetected); Coronavirus 229E Not Detected (NotDetected); Coronavirus NL63 Not Detected (NotDetected); Coronavirus OC43 Not Detected (NotDetected); Coronovirus HKU1,PCR Not Detected (NotDetected); Human Metapneumovirus Not Detected (NotDetected); Influenza A, PCR Not Detected (NotDetected); Influenza AH1, 2009 Not Detected (NotDetected); Influenza AH1, PCR Not Detected (NotDetected); Influenza AH3,PCR Not Detected (NotDetected); Influenza B, PCR Not Detected (NotDetected); Mycoplasma Pneumoniae, PCR Not Detected (NotDetected); Parainfluenza 1, PCR Not Detected (NotDetected); Parainfluenza 2, PCR Not Detected (NotDetected); Parainfluenza 3, PCR Not Detected (NotDetected); Parainfluenza 4, PCR Not Detected (NotDetected); Respiratory Syncytial Virus Not Detected (NotDetected); Rhinovirus/Enterovirus Not Detected (NotDetected)
[2024-05-21] MEDS: SODIUM CHLORIDE 0.9% 10ML SYR (RAD ONLY) 10 ML IV (20:31)
[2024-05-21] MEDS: IOPAMIDOL-370 (76%);100ML BOTTLE 75 ML IV (20:31)
[2024-05-21 20:51] VITALS: BP 89/63; PULSE 65; RESP 16; O2SAT 95
[2024-05-21] MEDS: PIPERCILLIN/TAZO 3.375 GM in 0.9 % SODIUM CHLORIDE 50 ML IV (20:51)
[2024-05-21] MEDS: VANCOMYCIN HCL 2,250 MG in 0.9 % SODIUM CHLORIDE 250 ML 125 MG IV (21:05)
[2024-05-21] MEDS: ACETAMINOPHEN 1,000MG/100ML VIAL 1000 MG IV (21:05)
[2024-05-21 21:33] LABS: Microscopic, Urine URINE MICROSCOPIC (MICROSCOPIC)
[2024-05-21 21:36] LABS: Appearance,Urine CLEAR (Clear); Bilirubin,Urine Negative (Negative); Blood, Urine Negative (Negative); Color,Urine YELLOW (Yellow); Glucose,Urine (UA) Negative (Negative); Ketones,Urine Negative (Negative); Leukocyte Esterase,Urine Negative (Negative); Nitrate,Urine Negative (Negative); Protein,Urine Negative (Negative); Urobilinogen,Urine 0.2 EU/dl (0.2)
[2024-05-21] MEDS: FENTANYL 100MCG/2ML VIAL 50 MCG IV (21:46)
[2024-05-21 21:52] LABS: Bacteria,Urine Trace /lpf; RBC,Urine Occasional #/hpf (0-3)
--- NOTE | 2024-05-21 22:43 | PC.NURSE ---
Report called to BEAU Marinelli
[2024-05-21 22:54] VITALS: BP 99/69; PULSE 62; RESP 14; TEMP 36.6; O2SAT 99
[2024-05-21 23:05] VITALS: BP 99/69; PULSE 79; RESP 14; TEMP 37.1; O2SAT 99
[2024-05-21 23:19] LABS: Reflex Lactic Add Lactic Reflex
[2024-05-21] MEDS: KETOROLAC 30MG/ML VIAL 30 MG IV (23:52)
[2024-05-21] MEDS: PREGABALIN 25MG CAPSULE 25 MG PO (23:52)
[2024-05-22 00:06] LABS: Troponin I < 0.01 ng/ml (0.00-0.034)
[2024-05-22] MEDS: 0.9 % SODIUM CHLORIDE 1000ML 1,000 ML 150 ML IV (00:07)
[2024-05-22] MEDS: PIPERCILLIN/TAZO 3.375 GM in 0.9 % SODIUM CHLORIDE 50 ML IV ×4 (01:18→20:01)
[2024-05-22 01:46] LABS: Amphetamine/Metha Screen,Urine Negative ng/ml (<1000)
[2024-05-22 01:47] LABS: Barbiturates Screen,Urine Negative ng/ml (<200)
[2024-05-22 01:48] LABS: Benzodiazepines Screen,Urine Negative ng/ml (<200); Cannabinoid Screen,Urine Negative ng/ml (<50)
[2024-05-22 01:49] LABS: Cocaine Screen,Urine Negative ng/ml (<300)
[2024-05-22 01:52] LABS: Methadone Screen,Urine Negative ng/ml (<300)
[2024-05-22 01:53] LABS: Opiate Screen,Urine Positive ng/ml (<300); Phencyclidine Screen,Urine Negative ng/ml (<25)
[2024-05-22 02:36] LABS: Troponin I < 0.01 ng/ml (0.00-0.034)
--- NOTE | 2024-05-22 02:48 | P.HP_ITS ---
<Statement entered by Sam Quinn MD - 05/22/24 22:02> Rounded on patient after nurse practitioner. Personally examined and interviewed patient. Agree with exam findings and care plan as documented. History of Present Illness *Admission Date: 05/21/24 *Reason for visit:: Generalized weakness *History of present illness: A 63-year-old male with a history of hypertension, hyperlipidemia, coronary artery disease with percutaneous coronary intervention, diabetes mellitus, nephrolithiasis, chronic pain and neuropathy with a spinal stimulator, and recent urinary tract infection (UTI) presents to the emergency department with generalized weakness and right flank pain. The patient reports a recent hospitalization (at [facility]) for colitis a few weeks ago and another admission for oliguria, acute kidney injury (RIGOBERTO), and a catheterized urine sample showing nitrate-positive UTI with calcium oxalate crystals, though no definitive kidney stone was identified on CT. He was under the impression a kidney stone was his primary issue, but records show no evidence of this. He states he felt better post-discharge but today experienced a sudden, significant worsening of generalized weakness and severe right-sided flank pain, particularly in the costovertebral angle (CVA) region. He denies hematuria or abdominal pain. He was so weak that he required assistance being removed from his vehicle. The history was obtained through interactive discussion with the patient and chart review, and the patient is deemed reliable. On examination, the patient is very ill-appearing, in distress, with severe hypotension (blood pressure 99/69, MAP 78 after fluids), tachycardic (heart rate improved but not specified), and afebrile. Physical exam is significant for severe generalized weakness and marked right CVA tenderness. The abdomen is non- tender, with no distension or guarding. Lungs are clear, and cardiac exam shows no murmurs. No edema is noted. Diagnostic workup includes labs, urinalysis, chest X-ray, and CT abdomen/pelvis. Labs show leukocytosis (WBC 11.9), normal hemoglobin (15.6), hyperkalemia (potassium 5.5), elevated BUN (26), creatinine (1.6), reduced GFR (44), hyperglycemia (glucose 169), elevated anion gap (16.5), normal calcium (9.8), AST (43), ALT (43), and negative troponin (<0.01). VBG reveals pH 7.31, elevated pCO2 (52.8), normal bicarbonate (26.2), and elevated lactate (2.6). Urinalysis is unremarkable, with no nitrates, leukocytes, or blood, possibly sterilized from recent antibiotics, and positive for opiates (consistent with ED fentanyl and prescribed hydrocodone). Chest X-ray shows no acute cardiopulmonary issues. CT abdomen/pelvis reveals no definitive intra-abdominal pathology, specifically no perinephric stranding to suggest pyelonephritis, but radiology read notes an air- and debris-filled area in the third portion of the duodenum, likely a diverticulum, without stranding to suggest diverticulitis or ulcer. A respiratory panel is negative, and stool PCR is pending. Treatments implemented in the emergency department include 2 L of intravenous crystalloid fluids, improving blood pressure to 99/69 (MAP 78). Fentanyl was administered for pain. IV vancomycin and Zosyn initiated in the ED. The working diagnosis is septic shock with a presumed infectious source (possible recurrent UTI or pyelonephritis), though no definitive source is identified. The case was discussed with Dr. Nuñez, who agreed the duodenal finding is unlikely an ulcer or diverticulitis requiring emergent intervention. The patient was accepted by hospital medicine for admission. [facility] Disclaimer: The information contained in this section may have been updated after the patient was seen, as this information can be updated by other users. Medical History (Updated 05/22/24 @ 02:[address] APRN) Leukocytosis Enlarged prostate Dizziness Angina pectoris Coronary artery disease Syncope Cystic lung, congenital History of pneumothorax Atrial fibrillation and flutter Presence of stent in LAD coronary artery Pericardial effusion without cardiac tamponade PNA (pneumonia) Diabetes GERD (gastroesophageal reflux disease) Pericarditis Angina at rest History of heart attack Hyperlipidemia Palpitations Hypertension Heart murmur Arrhythmia History of left heart catheterization (LHC) RBBB (right bundle branch block with left anterior fascicular block) Surgical History Hx of heart artery stent Previous back surgery Family History Other Family history of COPD (chronic obstructive pulmonary disease) Family history of hyperlipidemia Family history of hypertension Family history of myocardial infarction Family history of stroke Lung cancer Social History (Updated 05/21/24 @ 23:11 by Rowena Neumann RN) Smoking Status: Current every day smoker alcohol intake: former current occupational status: previously employed and disabled Travel in the last 8 weeks: None Have you lived/traveled outside [place] in past 30 days?: No Contact w/someone who lives/traveled outside [place] past 30 days?: No Exposure to someone with infectious disease in past 14 days?: No Do you have a fever (greater than 100.4 F or 38 C)?: No Have you tested positive for COVID-19: No Exposed to someone with COVID-19 in past 14 days?: No Do you have a sore throat?: No Do you have a cough?: No Do you have any weakness?: No Are you experiencing any nausea/vomitting?: No Do you have any diarrhea?: No Are you experiencing any unusual bleeding?: No Do you have any muscle aches/pain?: No Do you have any abdominal pain?: No Are you experiencing loss of taste or smell?: No Other Medical History Have you received the Flu Vaccine for this season: Yes Have you received the Pneumonia Vaccine: Yes Review of Systems Review of Systems Review of systems (narrative): 13 point review of systems negative except as listed in HPI Meds Home Medications and Allergies Home Medications ?Medication ?Instructions ?Recorded ?Confirmed ?Type omeprazole 40 mg capsule,delayed 40 mg PO DAILY 10/15/21 05/21/24 History release metoprolol succinate 25 mg 25 mg PO DAILY #90 tabs 09/28/23 05/21/24 Rx tablet,extended release 24 hr insulin glargine U-300 conc 300 36 unit SQ HS 01/16/24 05/21/24 History unit/mL (3 mL) subcutaneous pen (Toujeo Max U-300 SoloStar) blood sugar diagnostic (Accu-Chek 01/17/24 05/21/24 History Guide test strips) lancets (Accu-Chek Softclix 01/17/24 05/21/24 History Lancets) ranolazine 500 mg tablet,extended 500 mg PO BID 30 days #60 tabs 01/17/24 05/21/24 Rx release,12 hr duloxetine 30 mg capsule,delayed 30 mg PO DAILY 05/17/24 05/21/24 History release midodrine 5 mg tablet 5 mg PO TID 05/17/24 05/21/24 History nitroglycerin 0.4 mg sublingual 0.4 mg sublingual Q5MINP PRN Chest 05/17/24 05/21/24 History tablet Pain pregabalin 25 mg capsule 25 mg PO BID 05/17/24 05/21/24 History rosuvastatin 40 mg tablet 40 mg PO DAILY 05/17/24 05/21/24 History amoxicillin 500 mg-potassium 1 tab PO TID 7 days #21 tabs 05/18/24 05/21/24 Rx clavulanate 125 mg tablet (Augmentin) hydrocodone 5 mg-acetaminophen 325 1 tab PO Q6H PRN pain #12 tabs 05/18/24 05/21/24 Rx mg tablet tamsulosin 0.4 mg capsule 0.4 mg PO HS 30 days #30 caps 05/18/24 05/21/24 Rx New Prescriptions to Start Prescriptions: Allergies Allergy/AdvReac Type Severity Reaction Status Date / Time bee venom protein (honey bee) Allergy Anaphylaxis Verified 05/18/24 02:16 gabapentin Allergy Anaphylaxis Verified 05/18/24 02:16 Exam Data for Last 24 hours Vital signs and Labs for Last 24 Hours: Temp Pulse Resp BP Pulse Ox O2 Del Method 98.7 F 79 14 99/69 L 99 Room Air 05/21/24 23:05 05/21/24 23:05 05/21/24 23:05 05/21/24 23:05 05/21/24 23:05 05/22/24 01:00 Laboratory Results - last 24 hr 05/21/24 18:36: WBC 11.9 H, RBC 5.01, Hgb 15.6, Hct 45.4, MCV 90.6, MCH 31.1, MCHC 34.4, RDW 13.6, Plt Count 257 D, MPV 10.7 H, Neut % (Auto) 56.0, Lymph % (Auto) 35.2, [place] % (Auto) 6.2, Eos % (Auto) 1.5, Baso % (Auto) 0.8, Neut # (Auto) 6.6, Lymph # (Auto) 4.2, [place] # (Auto) 0.7, Eos # (Auto) 0.2, Baso # (Auto) 0.1, PT 10.5, INR 0.93, Sodium 139, Potassium 5.5 H, Chloride 102, Carbon Dioxide 26, Anion Gap 16.5 H, BUN 26 H, Creatinine 1.60 H, Estimated Creat Clear 61, Estimated GFR 44 L, Est GFR ( Amer) 53 L, Glucose 169 H, Calcium 9.8, Total Bilirubin 0.4, AST 43, ALT 43, Alkaline Phosphatase 66, Troponin I < 0.01, Total Protein 7.9 D, Albumin 4.7, Globulin 3.2, Albumin/Globulin Ratio 1.5, Lipase 87 05/21/24 19:56: VBG pH 7.31, VBG pCO2 52.8 H, VBG pO2 25.7 L, VBG HCO3 26.2, VBG Total CO2 27.8 H, VBG O2 Saturation 47.3 L, VBG Base Excess 0.0, VBG Lactic Acid 2.6 H 05/21/24 20:16: Chlamy pneumoniae PCR Not detected, Adenovirus (PCR) Not detected, B. pertussis DNA (PCR) Not detected, Coronavirus OC43 (PCR) Not detected, Coronavirus HKU1 (PCR) Not detected, Coronavirus 229E (PCR) Not detected, SARS-CoV-2 (PCR) Not detected, Coronavirus NL63 (PCR) Not detected, Human Metapneumovir PCR Not detected, Influenza A (H1) PCR Not detected, Influ A (H1N1/09) PCR Not detected, Influenza A (H3) PCR Not detected, Influenza Type A (PCR) Not detected, Influenza Type B (PCR) Not detected, M. pneumoniae (PCR) Not detected, Parainfluenza 1 (PCR) Not detected, Parainfluenza 2 (PCR) Not detected, Parainfluenza 3 (PCR) Not detected, Parainfluenza 4 (PCR) Not detected, RSV (PCR) Not detected, Entero/Rhino (PCR) Not detected 05/21/24 21:30: Urine Color Yellow, Urine Appearance Clear, Urine pH 7.0, Ur Specific [place] 1.010, Urine Protein Negative, Urine Glucose (UA) Negative, Urine Ketones Negative, Urine Blood Negative, Urine Nitrate Negative, Urine Bilirubin Negative, Urine Urobilinogen 0.2, Ur Leukocyte Esterase Negative, Urine RBC Occasional, Urine WBC 3-5, Ur Squamous Epith Cells None, Urine Bacteria Trace 05/21/24 23:29: Lactate 1.0, Troponin I < 0.01 05/22/24 00:00: Urine Opiates Screen Positive H, Urine Methadone Screen Negative, Ur Barbituates Screen Negative, Ur Phencyclidine Scrn Negative, Ur Amphetamines Screen Negative, U Benzodiazepines Scrn Negative, Urine Cocaine Screen Negative, U Marijuana (THC) Screen Negative 05/22/24 02:04: Troponin I < 0.01 I & O for Last 24 hours: Intake & Output 05/19/24 05/20/24 05/21/24 05/22/24 23:59 23:59 23:59 23:59 Intake Total 50 / 50 Balance 50 / 50 Weight 92.986 kg Constitutional Constitutional: mild distress, chronically ill appearing and disheveled *Routine HEENT Exam Head: Present normocephalic Eye: Present EOMI and PERRL ENT: Present mucous membranes moist *Routine Neck Exam Neck: Present supple; Absent lymphadenopathy *Routine Respiratory Exam Respiratory: Present CTA bilaterally *Routine Cardiovascular Exam Cardiovascular: Present RRR *Routine Abdominal Exam Abdominal: Present soft and normoactive bowel sounds; Absent tenderness *Routine Rectal Exam Rectal:: deferred *Routine Genitalia Exam Genitalia:: deferred *Routine Extremities Exam Extremities: Absent cyanosis, clubbing or edema *Routine Skin Exam Skin: Present warm; Absent rash *Routine Neurological Exam Neurological: Present alert and oriented X3 Assessment and Plan *Assessment and plan (1) Right flank pain: Status: Acute Category: Medical Code(s): R10.9 - Unspecified abdominal pain (2) Hypercalcemia: Status: Acute Category: Medical Code(s): E83.52 - Hypercalcemia (3) Dehydration: Status: Acute Category: Medical Code(s): E86.0 - Dehydration (4) Tobacco use: Status: Chronic Category: Social Hx Code(s): Z72.0 - Tobacco use (5) Diabetes: Status: Chronic Qualifiers: Diabetes mellitus type: type 2 Diabetes mellitus snf insulin use: without snf use Diabetes mellitus complication status: without complication Qualified Code(s): E11.9 - Type 2 diabetes mellitus without complications Category: Medical Code(s): E11.9 - Type 2 diabetes mellitus without complications (6) Hypotension: Status: Acute Category: Medical Code(s): I95.9 - Hypotension, unspecified Plan * Sepsis (Presumed Infectious Source): Hypotension (BP 99/69 post-fluids, MAP 78), generalized weakness, mild leukocytosis (WBC 11.9), lactate 2.1, and right CVA tenderness, suggestive of sepsis, possibly from recurrent UTI or pyelonephritis, though unremarkable urinalysis may be falsely negative due to recent antibiotics. * Continue vancomycin and piperacillin-tazobactam (Zosyn) 3.375 g IV every 6 hours for empiric coverage of UTI/pyelonephritis, including gram-positive and gram-negative pathogens. * Monitor lactate every 6 hours until <2; administer additional 30 mL/kg normal saline bolus if lactate rises above 3 or MAP falls below 65. * Check blood cultures (drawn prior to antibiotics) for growth; repeat urinalysis and urine culture to confirm infection. * Order renal ultrasound if no source identified to evaluate for abscess or obstruction. * Monitor vital signs every 4 hours, targeting MAP >65 * Admit to medical-surgical floor with telemetry for sepsis monitoring. * Acute Kidney Injury (Creatinine 1.6, GFR 44): Worsening RIGOBERTO with elevated BUN (26), likely prerenal from hypoperfusion or sepsis, building on recent hospitalization for oliguria. * Continue normal saline at 100 mL/hour to optimize renal perfusion, avoiding overload given CAD history. * Monitor urine output every 4 hours, targeting >0.5 mL/kg/hour. * Recheck creatinine and BUN in 12 hours; consult nephrology if creatinine rises above 2.0 or GFR falls below 40. * Avoid nephrotoxic agents (e.g., NSAIDs, contrast unless critical). * Review recent antibiotics from prior UTI admission to assess contribution. * Hyperkalemia (Potassium 5.5): Elevated potassium, likely from RIGOBERTO and acidosis (pH 7.31), no EKG changes reported. * Recheck potassium every 4 hours until <5.0; avoid potassium-containing fluids. * Recheck potassium after fluid resuscitation if still elevated administer insulin 10 units IV with 10 g dextrose IV to lower potassium; repeat if potassium remains >5.5. * Monitor EKG for peaked T-waves or arrhythmias; obtain stat EKG if potassium rises above 6.0. * Continue fluid resuscitation to enhance potassium excretion. * Hyperglycemia (Glucose 169): Elevated glucose in a diabetic patient, likely stress-induced from possible sepsis, no evidence of DKA (pH 7.31, negative ketones). * Verify home diabetes medications (e.g., metformin, insulin) and hold oral agents due to RIGOBERTO and sepsis. * Administer sliding-scale insulin * Monitor glucose n. * Order hemoglobin A1c to assess chronic control. * Recheck glucose with morning labs to trend. * Right Flank Pain with Possible Pyelonephritis: Severe right CVA tenderness and history of nitrate-positive UTI, though current urinalysis is bland, possibly due to antibiotics, with no CT evidence of perinephric stranding. * Continue vancomycin and Zosyn as above for presumed pyelonephritis. * Order renal ultrasound to evaluate for occult abscess or obstruction if pain persists. * Monitor pain severity and fever every 4 hours; offer acetaminophen 650 mg oral every 6 hours as needed, limiting fentanyl due to hypotension and OUD concerns. * Opioid Use Disorder (Differential to Rule Out): Pain emphasis, medication requests despite hypotension, family report of high pain medication use, and opiate-positive urinalysis (ED fentanyl, hydrocodone), raising concern for OUD in a patient with chronic pain and spinal stimulator, though not primary diagnosis. * Avoid additional opioids unless pain escalates; use acetaminophen as above or gabapentin (verify home dose, e.g., 300 mg three times daily) for neuropathy. * Monitor for withdrawal symptoms (agitation, diaphoresis) every 4 hours * Verify home pain regimen * Engage social work to address family concerns and outpatient support. * History of Colitis (Recent): Prior admission for colitis a few weeks ago, no current diarrhea or abdominal tenderness, but duodenal diverticulum on CT raises concern for gastrointestinal pathology. * Await stool PCR to rule out recurrent colitis (e.g., C. difficile). * Monitor for diarrhea, hematochezia, or epigastric pain every 8 hours. * Consult gastroenterology if stool PCR positive or abdominal symptoms develop. * Avoid NSAIDs due to RIGOBERTO and gastrointestinal risk. * Coronary Artery Disease with Prior PCI: No acute chest pain or troponin elevation (<0.01), but at risk for cardiovascular stress from hypotension. * Verify home anti-ischemic medications and continue unless hypotension worsens. * Monitor for chest pain or EKG changes; repeat EKG if symptoms arise. * Maintain MAP >65 to ensure coronary perfusion. * Consult cardiology if hypotension persists or cardiac symptoms develop. * Chronic Pain and Neuropathy with Spinal Stimulator: Severe weakness and chronic pain history, with recent fentanyl and hydrocodone use noted on urinalysis. * Use acetaminophen and pregabalin as above for pain; coordinate with pain management for spinal stimulator settings. * Monitor for oversedation or respiratory depression every 4 hours. Additional Orders: * Admit to medical-surgical floor for sepsis workup and hypotension management. * Maintain telemetry and pulse oximetry for hypotension and tachycardia. * Educate patient and family on sepsis, infection concerns, and pain management plan.
--- NOTE | 2024-05-22 03:20 | PC.NURSE ---
Pt has done well since arriving to unit. Receiving NS @ 150 mL/hr. Alert and oriented. Denies chest pain or shortness of air. Pt is resting in bed with eyes closed. Respirations even and unlabored. Bed is low, locked, and call light is in reach.
[2024-05-22 04:00] VITALS: BP 115/71; PULSE 60; PULSE 67; RESP 14; TEMP 36.4; O2SAT 92; BMI 28.3
[2024-05-22 05:34] LABS: POC Glucose,Bedside 89 (70-110)
[2024-05-22 06:17] LABS: Basophils # 0.1 K/mm3 (0-0.2); Basophils % 0.7 % (0.1-2.0); Eosinophils # 0.3 K/mm3 (0.0-0.4); Eosinophils % 3.5 % (0.1-12.0); Lymphocytes # 5.1 K/mm3 (0.7-4.5); Lymphocytes % 53.5 % (10-50); Mean Corpuscular HGB Conc 34.1 g/dL (31.8-35.4); Mean Corpuscular Hemoglobin 30.6 pg (27.0-31.2); Mean Corpuscular Volume 89.7 fl (80-94); Mean Platelet Volume 10.2 fl (7.4-10.4); Monocytes # 0.6 K/mm3 (0.1-1.0); Monocytes % 6.2 % (1.7-9.3); Neutrophils # 3.4 K/mm3 (1.8-7.8); Neutrophils % 35.9 % (37.0-80.0); Nucleated Red Blood Cells # 0 10^3/uL; Nucleated Red Blood Cells % 0 %; Platelet Count 175 K/mm3 (142-424); Red Blood Count 4.35 M/mm3 (4.60-6.20); Red Cell Distribution Width 13.2 % (11.5-17.5); Red Cell Distribution Width-SD 43.2 fL; White Blood Count 9.6 K/mm3 (4.8-10.8)
[2024-05-22 06:18] LABS: MANUAL DIFFERENTIAL MANUAL DIFFERENTIAL (MANUAL DIFF)
[2024-05-22 06:22] LABS: Hemoglobin 13.3 g/dL (14.1-18.0)
[2024-05-22 06:23] LABS: Chloride 109 mmol/L (98-107); Potassium 4.3 mmoL/L (3.5-5.1); Sodium 136 mmol/L (136-145)
[2024-05-22 06:26] LABS: Anion Gap 9.3 mEq/L (5-15); Blood Urea Nitrogen 21 mg/dl (9-20); Calcium 8.2 mg/dl (8.4-10.2); Carbon Dioxide 22 mmol/L (22.0-30.0); Creatinine Clearance Estimated 99 mL/min (50-200); Estimated Glomerular Filt Rate 75 ml/min (>60); GFR (African American) 91 ML/MIN (>60); Glucose 81 mg/dl (74-100); Phosphorous 2.6 mg/dl (2.5-4.5)
[2024-05-22 06:27] LABS: Magnesium 1.3 mg/dl (1.6-2.3)
[2024-05-22] MEDS: MAGNESIUM SULFATE IN WATER 2 GM/50 ML PIGGYBACK IV ×3 (07:04→11:17)
[2024-05-22 07:07] LABS: Lactic Acid 0.9 mmol/L (0.7-2.1)
[2024-05-22 07:41] LABS: Eosinophils % 2 % (0-3); Lymphocytes % 61 % (10-50); Monocytes % 9 % (2-9); Neutrophils % 27 % (42-76); Total Cells Counted 100
[2024-05-22 07:42] LABS: Platelet Estimate Normal; RBC Morphology Normal
--- NOTE | 2024-05-22 07:53 | P.CONPHA_ITS ---
Pharmacy Consult Date: 05/22/24 Time: 07:54 Referring provider: JAROD MORGAN APRN Reason for Consult:: VANCOMYCIN DOSING CONSULT Allergies Allergy/AdvReac Type Severity Reaction Status Date / Time bee venom protein (honey bee) Allergy Anaphylaxis Verified 05/18/24 02:16 gabapentin Allergy Anaphylaxis Verified 05/18/24 02:16 Home Medications ?Medication ?Instructions ?Recorded ?Confirmed ?Type omeprazole 40 mg capsule,delayed 40 mg PO DAILY 10/15/21 05/21/24 History release metoprolol succinate 25 mg 25 mg PO DAILY #90 tabs 09/28/23 05/21/24 Rx tablet,extended release 24 hr insulin glargine U-300 conc 300 36 unit SQ HS 01/16/24 05/21/24 History unit/mL (3 mL) subcutaneous pen (Toujeo Max U-300 SoloStar) blood sugar diagnostic (Accu-Chek 01/17/24 05/21/24 History Guide test strips) lancets (Accu-Chek Softclix 01/17/24 05/21/24 History Lancets) ranolazine 500 mg tablet,extended 500 mg PO BID 30 days #60 tabs 01/17/24 05/21/24 Rx release,12 hr duloxetine 30 mg capsule,delayed 30 mg PO DAILY 05/17/24 05/21/24 History release midodrine 5 mg tablet 5 mg PO TID 05/17/24 05/21/24 History nitroglycerin 0.4 mg sublingual 0.4 mg sublingual Q5MINP PRN Chest 05/17/24 05/21/24 History tablet Pain pregabalin 25 mg capsule 25 mg PO BID 05/17/24 05/21/24 History rosuvastatin 40 mg tablet 40 mg PO DAILY 05/17/24 05/21/24 History amoxicillin 500 mg-potassium 1 tab PO TID 7 days #21 tabs 05/18/24 05/21/24 Rx clavulanate 125 mg tablet (Augmentin) hydrocodone 5 mg-acetaminophen 325 1 tab PO Q6H PRN pain #12 tabs 05/18/24 05/21/24 Rx mg tablet tamsulosin 0.4 mg capsule 0.4 mg PO HS 30 days #30 caps 05/18/24 05/21/24 Rx New Prescriptions to Start Prescriptions: Height: 1.83 m Weight: 95.028 kg Laboratory Results:: Laboratory Results - last 24 hr 05/21/24 18:36: WBC 11.9 H, RBC 5.01, Hgb 15.6, Hct 45.4, MCV 90.6, MCH 31.1, MCHC 34.4, RDW 13.6, Plt Count 257 D, MPV 10.7 H, Neut % (Auto) 56.0, Lymph % (Auto) 35.2, [place] % (Auto) 6.2, Eos % (Auto) 1.5, Baso % (Auto) 0.8, Neut # (Auto) 6.6, Lymph # (Auto) 4.2, [place] # (Auto) 0.7, Eos # (Auto) 0.2, Baso # (Auto) 0.1, PT 10.5, INR 0.93, Sodium 139, Potassium 5.5 H, Chloride 102, Carbon Dioxide 26, Anion Gap 16.5 H, BUN 26 H, Creatinine 1.60 H, Estimated Creat Clear 61, Estimated GFR 44 L, Est GFR ( Amer) 53 L, Glucose 169 H, Calcium 9.8, Total Bilirubin 0.4, AST 43, ALT 43, Alkaline Phosphatase 66, Troponin I < 0.01, Total Protein 7.9 D, Albumin 4.7, Globulin 3.2, Albumin/Globulin Ratio 1.5, Lipase 87 05/21/24 19:56: VBG pH 7.31, VBG pCO2 52.8 H, VBG pO2 25.7 L, VBG HCO3 26.2, VBG Total CO2 27.8 H, VBG O2 Saturation 47.3 L, VBG Base Excess 0.0, VBG Lactic Acid 2.6 H 05/21/24 20:16: Chlamy pneumoniae PCR Not detected, Adenovirus (PCR) Not detected, B. pertussis DNA (PCR) Not detected, Coronavirus OC43 (PCR) Not detected, Coronavirus HKU1 (PCR) Not detected, Coronavirus 229E (PCR) Not detected, SARS-CoV-2 (PCR) Not detected, Coronavirus NL63 (PCR) Not detected, Human Metapneumovir PCR Not detected, Influenza A (H1) PCR Not detected, Influ A (H1N1/09) PCR Not detected, Influenza A (H3) PCR Not detected, Influenza Type A (PCR) Not detected, Influenza Type B (PCR) Not detected, M. pneumoniae (PCR) Not detected, Parainfluenza 1 (PCR) Not detected, Parainfluenza 2 (PCR) Not detected, Parainfluenza 3 (PCR) Not detected, Parainfluenza 4 (PCR) Not detected, RSV (PCR) Not detected, Entero/Rhino (PCR) Not detected 05/21/24 21:30: Urine Color Yellow, Urine Appearance Clear, Urine pH 7.0, Ur Specific [place] 1.010, Urine Protein Negative, Urine Glucose (UA) Negative, Urine Ketones Negative, Urine Blood Negative, Urine Nitrate Negative, Urine Bilirubin Negative, Urine Urobilinogen 0.2, Ur Leukocyte Esterase Negative, Urine RBC Occasional, Urine WBC 3-5, Ur Squamous Epith Cells None, Urine Bacteria Trace 05/21/24 23:29: Lactate 1.0, Troponin I < 0.01 05/22/24 00:00: Urine Opiates Screen Positive H, Urine Methadone Screen Negative, Ur Barbituates Screen Negative, Ur Phencyclidine Scrn Negative, Ur Amphetamines Screen Negative, U Benzodiazepines Scrn Negative, Urine Cocaine Screen Negative, U Marijuana (THC) Screen Negative 05/22/24 02:04: Troponin I < 0.01 05/22/24 05:11: POC Glucose 89 05/22/24 05:58: WBC 9.6, RBC 4.35 L, Hgb 13.3 L D, Hct 39.0 L, MCV 89.7, MCH 30.6, MCHC 34.1, RDW 13.2, Plt Count 175 D, MPV 10.2, Neut % (Auto) 35.9 L, Lymph % (Auto) 53.5 H, [place] % (Auto) 6.2, Eos % (Auto) 3.5, Baso % (Auto) 0.7, Neut # (Auto) 3.4, Lymph # (Auto) 5.1 H, [place] # (Auto) 0.6, Eos # (Auto) 0.3, Baso # (Auto) 0.1, Total Counted 100, Neutrophils % (Manual) 27 L, Band Neutrophils % 1.0, Lymphocytes % (Manual) 61 H, Monocytes % (Manual) 9, Eosinophils % (Manual) 2, Platelet Estimate Normal, RBC Morphology Normal, Sodium 136, Potassium 4.3 D, Chloride 109 H, Carbon Dioxide 22, Anion Gap 9.3, BUN 21 H, Creatinine 1.00 D, Estimated Creat Clear 99, Estimated GFR 75, Est GF R ( Amer) 91 D, Glucose 81 D, Lactate 0.9, Calcium 8.2 L, Phosphorus 2.6, Magnesium 1.3 L Medical History: Medical History (Updated 05/22/24 @ 02:57 by Jarod Morgan APRN) Leukocytosis Enlarged prostate Dizziness Angina pectoris Coronary artery disease Syncope Cystic lung, congenital History of pneumothorax Atrial fibrillation and flutter Presence of stent in LAD coronary artery Pericardial effusion without cardiac tamponade PNA (pneumonia) Diabetes GERD (gastroesophageal reflux disease) Pericarditis Angina at rest History of heart attack Hyperlipidemia Palpitations Hypertension Heart murmur Arrhythmia History of left heart catheterization (LHC) RBBB (right bundle branch block with left anterior fascicular block) Assessment and Plan Assessment and plan all Dx Assessment and Plan for all problems:: Pharmacokinetic dosing service Objective: Age: 63 yo Serum creatinine: 1 mg/dL Height: 72.0 Inches Weight (kg): 95.028 Diagnosis: PYELONEPHRITIS/SEPSIS Assessment: IBW (kg): 77.60 Dosing wt(kg): 95.028 Estimated Creatinine clearance (ml/min): 80.8 CRCL method: Cockcroft and Gault using ibw(default). Drug selected: Vancomycin Loading dose (mg): 2250 MG Vd (liters): 66.5 (factor used: 0.7 L/kg) Jon (hr-1): 0.071 Half life (hrs): 9.76 CLvanco=?? 4.721 L/hr Recommended dose: 1750 mg Interval: 18 hrs Infusion time (hrs): 2.0 Predicted peak (mcg/mL): 34.0 Predicted trough (mcg/mL): 10.92 Total body weight is being used for vancomycin dosing. Recommendations: Give Vancomycin 1750 mg q 18 hrs with an expected Cpeak of 34.0 mcg/ml and an expected Ctrough of 10.92 mcg/ml TO START 05/22/24 AT 15:00, PATIENT RECEIVED ONE TIME LOADING DOSE OF VANCOMYCIN 2250 MG IN THE ED 05/21/24 AT 21:05. AUC 0-24 /MIKE Data: MIKE 0.5 mcg/mL:?? AUC/MIKE:? 988.5 MIKE 1.0 mcg/mL:?? AUC/MIKE:? 494.2 --------- MIKE 1.5 mcg/mL:?? AUC/MIKE:? 329.5 MIKE 2.0 mcg/mL:?? AUC/MIKE:? 247.1 Thank you for the consult
[2024-05-22 08:00] VITALS: BP 118/74; PULSE 60; PULSE 67; RESP 18; TEMP 36.5; O2SAT 96
[2024-05-22] MEDS: PREGABALIN 25MG CAPSULE 25 MG PO ×2 (08:44→21:24)
--- NOTE | 2024-05-22 09:49 | HMH.OTEV ---
OT Inpatient Evaluation Rehab OT IP Evaluation Start: 05/21/24 23:12 Freq: ONCE Status: Active Protocol: Document 05/22/24 09:[address] [facility] (Rec: 05/22/24 09:[address] [facility] [id number]) Rehab OT IP Assessment Subjective History Pt oriented x 3 on arrival. Pt agreeable to engage in therapy evaluation. Pt admitted on 05/21/24 due to generalized weakness. History and physical: A 63-year-old male with a history of hypertension, hyperlipidemia, coronary artery disease with percutaneous coronary intervention, diabetes mellitus, nephrolithiasis, chronic pain and neuropathy with a spinal stimulator, and recent urinary tract infection (UTI) presents to the emergency department with generalized weakness and right flank pain. The patient reports a recent hospitalization (at [facility]) for colitis a few weeks ago and another admission for oliguria, acute kidney injury (RIGOBERTO), and a catheterized urine sample showing nitrate-positive UTI with calcium oxalate crystals, though no definitive kidney stone was identified on CT. He was under the impression a kidney stone was his primary issue, but records show no evidence of this. He states he felt better post-discharge but today experienced a sudden , significant worsening of generalized weakness and severe right-sided flank pain, particularly in the costovertebral angle (CVA) region. He denies hematuria or abdominal pain. He was so weak that he required assistance being removed from his vehicle. The history was obtained through interactive discussion with the patient and chart review, and the patient is deemed reliable. On examination, the patient is very ill-appearing, in distress, with severe hypotension (blood pressure 99 /69, MAP 78 after fluids), tachycardic (heart rate improved but not specified), and afebrile. Physical exam is significant for severe generalized weakness and marked right CVA tenderness. The abdomen is non-tender, with no distension or guarding . Lungs are clear, and cardiac exam shows no murmurs. No edema is noted. Subjective Prior to being in the hospital , pt lived at home with his girlfriend. Pt claims he is normally independent with all ADLs (bathing, dressing, and feeding). He also reports he is able to complete light IADLs such as simple cooking tasks. Otherwise, his girlfriend completes heavier household tasks. Pt does still drive. He uses a walker and a cane intermittently as needed, but does not require them at all times. Pt complaining of back pain on arrival reaching 10/17. Objective Patient Orientation Person,Place,Birthday Right Upper Extremity Gross ROM WFL Left Upper Extremity Gross ROM WFL Bed Mobility bed mobility-scooting,bed mobility - supine/sit Assist Level Supervision/Stand by Transfer Training Sit/Stand Transfer Assist Level Supervision/Stand by Chair Transfer Ability Supervision/Stand by Chair Transfer Technique Sit to/from Ambulatory Chair Transfer Assistive Devices Rolling Walker Lower Body Dressing Ability Standby Assistance Rehab OT IP prob,goals,plan Problems Date of Evaluation: 05/22/24 Rehab Potential Rehab Potential Innapropriate for Skilled Therapy Discharge Plan OT Discharge Plan Pt appears to be at his baseline with functional transfers and ADL independence . Pt can return home with his girlfriend once he is medically stable per physician . Therapist does recommend a OT evaluation for environmental safety upon returning home. Eval Complexity Eval Charge Codes 44187 - Moderate Complexity PHYSICIAN CERTIFICATION: I certify the specified therapy services for Tashi Martin JR are required, authorized, and reviewed every 30 days.
--- NOTE | 2024-05-22 09:50 | HMH.PTEV ---
Physical Therapy Evaluation Rehab PT IP Evaluation Start: 05/21/24 23:12 Freq: ONCE Status: Active Protocol: Document 05/22/24 08:50 [facility] (Rec: 05/22/24 09:48 [facility] [id number]) Subjective/History History History A 63-year-old male with a history of hypertension, hyperlipidemia, coronary artery disease with percutaneous coronary intervention, diabetes mellitus, nephrolithiasis, chronic pain and neuropathy with a spinal stimulator, and recent urinary tract infection (UTI) presents to the emergency department with generalized weakness and right flank pain. Pt has had two recent hospitalizations in the past few weeks. Pt currently lives with his girlfriend, no steps to enter his home. He occasionally uses a walker or cane. Subjective Subjective Pt presents resting in bed and lethargic. He c/o significant pain in his back (910) but is willing to attempt ambulation with therapy this am. He states that he has some dizziness when he gets up and pain in his feet due to neuropathy. Pt left supine in bed with call hale in reach. New diagnosis of cancer in past 12 No months? [facility] How much help from another person do you currently need... Turning from your back to your side None while in a flat bed without using bedrails? Moving from lying on back to sitting on None the side of a flat bed without using bedrails? Moving to and from a bed to a chair ( None including a wheelchair)? Standing up from a chair using your arms None ? (e.g., wheelchair, bedside chair) Walking in hospital room? None Climbing 3-5 steps with a railing? None Mobility Score 24 Mobility Level [facility] Mobility Calculator Mobility 8 Walk 250 feet or more Rehab PT IP Eval Objective Appearance Patient Behavior Appropriate,Cooperative Patient Orientation Person,Place,Time Difficulty following instructions none Speech Pattern Clear,Appropriate Ambulation Patient Able to Ambulate Yes Ambulation Observation IP General Gait Pattern Observation Wide Based Gait Ambulation Distance (feet) 25 Ambulation Assistive Device Rolling Walker Ambulation Ability Contact Guard/Hand Hold Balance Ability to Arise Able, uses arms to help Sitting Balance Steady, safe Standing Balance Steady, wide stance Dynamic Sitting Balance Ability Normal Dynamic Standing Balance Ability Normal Transfers Bed Transfer Ability Contact Guard/Hand Hold Sit to Stand Bed Transfer Ability Contact Guard/Hand Hold Rehab PT IP prob,goals,plan Problems Date of Evaluation: 05/22/24 Discharge Plan PT Discharge Plan Patient is currently most appropriate to return home once medically stable for d/c. Skilled acute therapy is not currently indicated as patient is able to ambulate independently, and will likely improve with pain management. A RW was left in the room with the patient to assist with pain during ambulation, and was able to walk 25 feet in his room. Eval Complexity Eval Charge Codes 58411 - High Complexity PHYSICIAN CERTIFICATION: I certify the specified therapy services for Tashi Martin JR are required, authorized, and reviewed every 30 days.
[2024-05-22] MEDS: FAMOTIDINE 20MG TABLET 40 MG PO (11:05)
[2024-05-22] MEDS: KETOROLAC 30MG/ML VIAL 30 MG IV (11:05)
[2024-05-22 11:56] LABS: POC Glucose,Bedside 139 (70-110)
[2024-05-22 12:00] VITALS: PULSE 70
[2024-05-22] MEDS: VANCOMYCIN/WATER FOR INJ (PEG) 1.75 GM/350 ML PIGGYBACK IV (14:59)
[2024-05-22 15:46] LABS: POC Glucose,Bedside 121 (70-110)
[2024-05-22 16:00] VITALS: BP 110/63; PULSE 60; PULSE 64; RESP 18; TEMP 37; O2SAT 96
--- NOTE | 2024-05-22 16:55 | P.PN_ITS ---
Subjective *Date: 05/22/24 *Time: 21:46 Interval history: Continues to complain of right-sided abdominal pain. Remains afebrile. No nausea or vomiting. Requesting something to eat. No chest pain or shortness of breath. Stable on room air. Medical Exam Vital signs and Labs for Last 24 Hours: Vital Signs Temp Pulse Pulse Resp BP BP BP 05/22/24 14:39 05/22/24 12:47 05/22/24 12:00 70 05/22/24 11:00 05/22/24 08:00 60 05/22/24 08:00 05/22/24 08:00 97.7 F 67 18 118/74 05/22/24 07:55 05/22/24 06:40 05/22/24 05:00 05/22/24 04:00 60 05/22/24 04:00 97.5 F L 67 14 115/71 05/22/24 03:00 05/22/24 01:00 05/21/24 23:05 98.7 F 79 14 99/69 L 05/21/24 23:00 05/21/24 22:54 97.9 F 62 14 99/69 L 05/21/24 22:20 05/21/24 20:51 65 16 89/63 L 05/21/24 20:03 77 20 89/59 L 05/21/24 20:00 65 05/21/24 19:53 97.7 F 80 14 72/40 L 79/53 L Pulse Ox O2 Del Method 05/22/24 14:39 Room Air 05/22/24 12:47 Room Air 05/22/24 12:00 05/22/24 11:00 Room Air 05/22/24 08:00 05/22/24 08:00 Room Air 05/22/24 08:00 96 Room Air 05/22/24 07:55 Room Air 05/22/24 06:40 Room Air 05/22/24 05:00 Room Air 05/22/24 04:00 05/22/24 04:00 92 L Room Air 05/22/24 03:00 Room Air 05/22/24 01:00 Room Air 05/21/24 23:05 99 Room Air 05/21/24 23:00 Room Air 05/21/24 22:54 Room Air 05/21/24 22:20 Room Air 05/21/24 20:51 95 05/21/24 20:03 95 05/21/24 20:00 05/21/24 19:53 93 L Room Air Intake and Output 05/22/24 05/22/24 05/22/24 07:59 15:59 23:59 Intake Total 50 / 1010 960 / 1010 Output Total 1100 / 1100 Balance 50 / -90 -140 / -90 Intake: Intake, Oral Amount 960 / 960 Intake, Total IV Amount 50 / 50 Pipercillin/Tazo 3.375 gm In 0. 50 / 50 9 % Sodium Chloride 50 ml @ 100 mls/hr IV ONCE ONE Rx#: [id number] Output: Output, Urine Amount 1100 / 1100 Other: Weight 95.028 kg Patient Weight 05/22/24 23:59 Weight 95.028 kg Laboratory Results - last 24 hr 05/21/24 18:36: WBC 11.9 H, RBC 5.01, Hgb 15.6, Hct 45.4, MCV 90.6, MCH 31.1, MCHC 34.4, RDW 13.6, Plt Count 257 D, MPV 10.7 H, Neut % (Auto) 56.0, Lymph % (Auto) 35.2, [place] % (Auto) 6.2, Eos % (Auto) 1.5, Baso % (Auto) 0.8, Neut # (Auto) 6.6, Lymph # (Auto) 4.2, [place] # (Auto) 0.7, Eos # (Auto) 0.2, Baso # (Auto) 0.1, PT 10.5, INR 0.93, Sodium 139, Potassium 5.5 H, Chloride 102, Carbon Dioxide 26, Anion Gap 16.5 H, BUN 26 H, Creatinine 1.60 H, Estimated Creat Clear 61, Estimated GFR 44 L, Est GFR ( Amer) 53 L, Glucose 169 H, Calcium 9.8, Total Bilirubin 0.4, AST 43, ALT 43, Alkaline Phosphatase 66, Troponin I < 0.01, Total Protein 7.9 D, Albumin 4.7, Globulin 3.2, Albumin/Globulin Ratio 1.5, Lipase 87 05/21/24 19:56: VBG pH 7.31, VBG pCO2 52.8 H, VBG pO2 25.7 L, VBG HCO3 26.2, VBG Total CO2 27.8 H, VBG O2 Saturation 47.3 L, VBG Base Excess 0.0, VBG Lactic Acid 2.6 H 05/21/24 20:16: Chlamy pneumoniae PCR Not detected, Adenovirus (PCR) Not detected, B. pertussis DNA (PCR) Not detected, Coronavirus OC43 (PCR) Not detected, Coronavirus HKU1 (PCR) Not detected, Coronavirus 229E (PCR) Not detected, SARS-CoV-2 (PCR) Not detected, Coronavirus NL63 (PCR) Not detected, Human Metapneumovir PCR Not detected, Influenza A (H1) PCR Not detected, Influ A (H1N1/09) PCR Not detected, Influenza A (H3) PCR Not detected, Influenza Type A (PCR) Not detected, Influenza Type B (PCR) Not detected, M. pneumoniae (PCR) Not detected, Parainfluenza 1 (PCR) Not detected, Parainfluenza 2 (PCR) Not detected, Parainfluenza 3 (PCR) Not detected, Parainfluenza 4 (PCR) Not detected, RSV (PCR) Not detected, Entero/Rhino (PCR) Not detected 05/21/24 21:30: Urine Color Yellow, Urine Appearance Clear, Urine pH 7.0, Ur Specific [place] 1.010, Urine Protein Negative, Urine Glucose (UA) Negative, Urine Ketones Negative, Urine Blood Negative, Urine Nitrate Negative, Urine Bilirubin Negative, Urine Urobilinogen 0.2, Ur Leukocyte Esterase Negative, Urine RBC Occasional, Urine WBC 3-5, Ur Squamous Epith Cells None, Urine Bacteri a Trace 05/21/24 23:29: Lactate 1.0, Troponin I < 0.01 05/22/24 00:00: Urine Opiates Screen Positive H, Urine Methadone Screen Nega tive, Ur Barbituates Screen Negative, Ur Phencyclidine Scrn Negative, Ur Amphetamines Screen Negative, U Benzodiazepines Scrn Negative, Urine Cocaine Screen Negative, U Marijuana (THC) Screen Negative 05/22/24 02:04: Troponin I < 0.01 05/22/24 05:11: POC Glucose 89 05/22/24 05:58: WBC 9.6, RBC 4.35 L, Hgb 13.3 L D, Hct 39.0 L, MCV 89.7, MCH 30.6, MCHC 34.1, RDW 13.2, Plt Count 175 D, MPV 10.2, Neut % (Auto) 35.9 L, Lymph % (Auto) 53.5 H, [place] % (Auto) 6.2, Eos % (Auto) 3.5, Baso % (Auto) 0.7, Neut # (Auto) 3.4, Lymph # (Auto) 5.1 H, [place] # (Auto) 0.6, Eos # (Auto) 0.3, Baso # (Auto) 0.1, Total Counted 100, Neutrophils % (Manual) 27 L, Band Neutrophils % 1.0, Lymphocytes % (Manual) 61 H, Monocytes % (Manual) 9, Eos inophils % (Manual) 2, Platelet Estimate Normal, RBC Morphology Normal, Sodium 136, Potassium 4.3 D, Chloride 109 H, Carbon Dioxide 22, Anion Gap 9.3, BUN 21 H, Creatinine 1.00 D, Estimated Creat Clear 99, Estimated GFR 75, Est GFR ( Amer) 91 D, Glucose 81 D, Lactate 0.9, Calcium 8.2 L, Phosphorus 2.6, Magnesium 1.3 L 05/22/24 11:02: POC Glucose 139 H 05/22/24 15:38: POC Glucose 121 H I & O for Labs for Last 24 Hours: Intake & Output 05/19/24 05/20/24 05/21/24 05/22/24 23:59 23:59 23:59 23:59 Intake Total 1010 / 1010 Output Total 1100 / 1100 Balance -90 / -90 Weight 92.986 kg 95.028 kg Constitutional: Present mild distress, chronically ill appearing and cooperative Head: Present atraumatic and normocephalic ENT: Present normal exam Respiratory: Present normal respiratory effort; Absent rhonchi, wheezes or crackles Cardiac: Present Reg Rate and Rhythm GI: Present soft, tenderness (Worse in right hemiabdomen) and normal bowel sounds; Absent distention, guarding or rebound Extremities: Present normal inspection and full ROM Skin: Present intact; Absent erythema Neuro: Present Grossly Intact, alert, awake, oriented x 3 and moves all extremities Assessment and Plan *Assessment and plan (1) Enteritis: Status: Acute Category: Medical Code(s): K52.9 - Noninfective gastroenteritis and colitis, unspecified (2) Right flank pain: Status: Acute Category: Medical Code(s): R10.9 - Unspecified abdominal pain (3) Hypercalcemia: Status: Acute Category: Medical Code(s): E83.52 - Hypercalcemia (4) Dehydration: Status: Acute Category: Medical Code(s): E86.0 - Dehydration (5) Tobacco use: Status: Chronic Category: Social Hx Code(s): Z72.0 - Tobacco use (6) Diabetes: Status: Chronic Qualifiers: Diabetes mellitus complication status: without complication Diabetes mellitus exterminator helper termite insulin use: without exterminator helper termite use Diabetes mellitus type: type 2 Qualified Code(s): E11.9 - Type 2 diabetes mellitus without complications Category: Medical Code(s): E11.9 - Type 2 diabetes mellitus without complications (7) Hypotension: Status: Acute Category: Medical Code(s): I95.9 - Hypotension, unspecified (8) Constipation: Status: Acute Qualifiers: Constipation type: unspecified constipation type Qualified Code(s): K59.00 - Constipation, unspecified Category: Medical Code(s): K59.00 - Constipation, unspecified (9) Hypertension: Status: Chronic Qualifiers: Hypertension type: primary hypertension Qualified Code(s): I10 - Essential (primary) hypertension Category: Medical Code(s): I10 - Essential (primary) hypertension (10) Hyperlipidemia: Status: Chronic Qualifiers: Hyperlipidemia type: mixed hyperlipidemia Qualified Code(s): E78.2 - Mixed hyperlipidemia Category: Medical Code(s): E78.5 - Hyperlipidemia, unspecified Plan 63-year-old male who presents with abdominal pain. Concern for enteritis on imaging. Pain persistent this morning. Continuing broad-spectrum antibiotics. Also concern for component of constipation. Continues to require patient management for gradual advancement of diet, continued IV antibiotics, monitoring for bowel movements. 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 - Await stool PCR to rule out recurrent colitis (e.g., C. difficile). - Monitor for diarrhea, hematochezia, or epigastric pain every 8 hours. - Consult gastroenterology if stool PCR positive or abdominal symptoms develop. - Continue vancomycin and piperacillin-tazobactam (Zosyn) 3.375 g IV every 6 hours for empiric coverage - Check blood cultures (drawn prior to antibiotics) for growth; repeat urinalysis and urine culture to confirm infection. - White count normal at 9.6. Acute Kidney Injury (Creatinine 1.6, GFR 44): Worsening RIGOBERTO with elevated BUN (26), likely prerenal from hypoperfusion or sepsis, building on recent hospitalization for oliguria. - Improved creatinine this morning. BUN 21, creatinine 1.0. Magnesium level 1.3, potassium 4.3, replace per protocol. -Repeat CBC, CMP, magnesium ordered for the morning Hyperkalemia (Potassium 5.5): Elevated potassium, likely from RIGOBERTO and acidosis (pH 7.31), no EKG changes reported. Improved this morning at 4.3. Hyperglycemia (Glucose 169): Elevated glucose in a diabetic patient, likely stress-induced from possible sepsis, no evidence of DKA (pH 7.31, negative ketones). -Glucose 81 this morning. A1c pending. Chronic pain: Has spinal stimulator in place. States that its on but does not have his remote control. - Severe weakness and chronic pain history, with recent fentanyl and hydrocodone use noted on urinalysis. - Use acetaminophen and pregabalin as above for pain; coordinate with pain management for spinal stimulator settings. - Monitor for oversedation or respiratory depression every 4 hours. Coronary Artery Disease with Prior PCI: No acute chest pain or troponin elevation (<0.01), but at risk for cardiovascular stress from hypotension. -Continue metoprolol succinate 25 mg daily, ranolazine 500 mg twice daily, Crestor 40 mg nightly BPH: Continue tamsulosin 0.4 mg Full code Lovenox 40 mg subcu daily Full liquid diet
--- NOTE | 2024-05-22 17:51 | PC.NURSE ---
PT IS RESTING IN BED. ALERT AND ORIENTED X4. MEDICATED PER MAR FOR RIGHT SIDED DISCOMFORT (RUQ AND RT FLANK). LUNG SOUNDS CLEAR. ABDOMEN SOFT WITH RUQ TENDERNESS. TOLERATING FULL LIQUIDS. VSS. WILL CONTINUE TO MONITOR.
[2024-05-22] MEDS: POLYETHYLENE GLYCOL 3350 17 GM PACKET PO (18:26)
[2024-05-22 19:51] VITALS: BP 108/63; PULSE 68; RESP 18; TEMP 36.8; O2SAT 95
[2024-05-22 20:00] VITALS: PULSE 70
[2024-05-22] MEDS: RANOLAZINE 500MG ER TABLET 500 MG PO (21:25)
[2024-05-22] MEDS: PANTOPRAZOLE 40MG TABLET 40 MG PO (21:25)
[2024-05-22] MEDS: TAMSULOSIN 0.4MG CAPSULE 0.4 MG PO (21:25)
[2024-05-22] MEDS: INSULIN GLARGINE 100 UNITS/ML 3ML FLEXPEN 36 UNIT SUBCUT (21:28)
[2024-05-23] VITALS: BP 127/70; PULSE 70; PULSE 73; RESP 17; TEMP 36.9; O2SAT 97
[2024-05-23] MEDS: PIPERCILLIN/TAZO 3.375 GM in 0.9 % SODIUM CHLORIDE 50 ML IV ×2 (02:00→08:59)
[2024-05-23] MEDS: SODIUM CHLORIDE 0.9% 10ML FLUSH SYRINGE 10 ML IV ×2 (02:12→02:58)
[2024-05-23 02:14] LABS: POC Glucose,Bedside 129 (70-110)
[2024-05-23 04:00] VITALS: BP 126/74; PULSE 60; PULSE 68; RESP 17; TEMP 36.9; O2SAT 99; BMI 28.3
[2024-05-23 06:23] LABS: Basophils # 0.1 K/mm3 (0-0.2); Eosinophils # 0.4 K/mm3 (0.0-0.4); Eosinophils % 5.1 % (0.1-12.0); Hematocrit 41.8 % (42.0-52.0); Hemoglobin 14.4 g/dL (14.1-18.0); Lymphocytes # 4.2 K/mm3 (0.7-4.5); Lymphocytes % 51.2 % (10-50); Mean Corpuscular HGB Conc 34.4 g/dL (31.8-35.4); Mean Corpuscular Hemoglobin 30.8 pg (27.0-31.2); Mean Corpuscular Volume 89.5 fl (80-94); Mean Platelet Volume 10.3 fl (7.4-10.4); Monocytes # 0.5 K/mm3 (0.1-1.0); Monocytes % 5.5 % (1.7-9.3); Neutrophils % 37.1 % (37.0-80.0); Nucleated Red Blood Cells # 0 10^3/uL; Nucleated Red Blood Cells % 0 %; Platelet Count 196 K/mm3 (142-424); Red Blood Count 4.67 M/mm3 (4.60-6.20); Red Cell Distribution Width 13.3 % (11.5-17.5); Red Cell Distribution Width-SD 43.4 fL; White Blood Count 8.2 K/mm3 (4.8-10.8)
[2024-05-23 06:30] LABS: POC Glucose,Bedside 96 (70-110)
[2024-05-23 06:48] LABS: Chloride 109 mmol/L (98-107); Potassium 4.8 mmoL/L (3.5-5.1); Sodium 139 mmol/L (136-145)
[2024-05-23 06:51] LABS: Blood Urea Nitrogen 11 mg/dl (9-20); Creatinine Clearance Estimated 99 mL/min (50-200); Estimated Glomerular Filt Rate 113 ml/min (>60); GFR (African American) 137 ML/MIN (>60)
[2024-05-23 06:52] LABS: Anion Gap 11.8 mEq/L (5-15); Calcium 8.9 mg/dl (8.4-10.2); Carbon Dioxide 23 mmol/L (22.0-30.0); Glucose 95 mg/dl (74-100)
[2024-05-23 06:54] LABS: MANUAL DIFFERENTIAL MANUAL DIFFERENTIAL (MANUAL DIFF)
--- NOTE | 2024-05-23 07:22 | P.DS_ITS ---
General Admission date:: 05/21/24 Discharge date: 05/23/24 HPI HPI HPI: A 63-year-old male with a history of hypertension, hyperlipidemia, coronary artery disease with percutaneous coronary intervention, diabetes mellitus, nephrolithiasis, chronic pain and neuropathy with a spinal stimulator, and recent urinary tract infection (UTI) presents to the emergency department with generalized weakness and right flank pain. The patient reports a recent hospitalization (at [facility]) for colitis a few weeks ago and another admission for oliguria, acute kidney injury (RIGOBERTO), and a catheterized urine sample showing nitrate-positive UTI with calcium oxalate crystals, though no definitive kidney stone was identified on CT. He was under the impression a kidney stone was his primary issue, but records show no evidence of this. He states he felt better post-discharge but today experienced a sudden, significant worsening of generalized weakness and severe right-sided flank pain, particularly in the costovertebral angle (CVA) region. He denies hematuria or abdominal pain. He was so weak that he required assistance being removed from his vehicle. The history was obtained through interactive discussion with the patient and chart review, and the patient is deemed reliable. On examination, the patient is very ill-appearing, in distress, with severe hypotension (blood pressure 99/69, MAP 78 after fluids), tachycardic (heart rate improved but not specified), and afebrile. Physical exam is significant for severe generalized weakness and marked right CVA tenderness. The abdomen is non- tender, with no distension or guarding. Lungs are clear, and cardiac exam shows no murmurs. No edema is noted. Diagnostic workup includes labs, urinalysis, chest X-ray, and CT abdomen/pelvis. Labs show leukocytosis (WBC 11.9), normal hemoglobin (15.6), hyperkalemia (potassium 5.5), elevated BUN (26), creatinine (1.6), reduced GFR (44), hyperglycemia (glucose 169), elevated anion gap (16.5), normal calcium (9.8), AST (43), ALT (43), and negative troponin (<0.01). VBG reveals pH 7.31, elevated pCO2 (52.8), normal bicarbonate (26.2), and elevated lactate (2.6). Urinalysis is unremarkable, with no nitrates, leukocytes, or blood, possibly sterilized from recent antibiotics, and positive for opiates (consistent with ED fentanyl and prescribed hydrocodone). Chest X-ray shows no acute cardiopulmonary issues. CT abdomen/pelvis reveals no definitive intra-abdominal pathology, specifically no perinephric stranding to suggest pyelonephritis, but radiology read notes an air- and debris-filled area in the third portion of the duodenum, likely a diverticulum, without stranding to suggest diverticulitis or ulcer. A respiratory panel is negative, and stool PCR is pending. Treatments implemented in the emergency department include 2 L of intravenous crystalloid fluids, improving blood pressure to 99/69 (MAP 78). Fentanyl was administered for pain. IV vancomycin and Zosyn initiated in the ED. The working diagnosis is septic shock with a presumed infectious source (possible recurrent UTI or pyelonephritis), though no definitive source is identified. The case was discussed with Dr. Nuñez, who agreed the duodenal finding is unlikely an ulcer or diverticulitis requiring emergent intervention. The patient was accepted by hospital medicine for admission. Hospital Course Hospital Course Hospital Course: 63-year-old male who presents with abdominal pain. Concern for enteritis on imaging. Pain showed some gradual improvement. Was initially on antibiotics during admission. To biotics at discharge. Able to gradually advance diet. Patient had bowel movements which improved some of his pain as well. Hemod ynamically stable for discharge home to continue to convalesce. Problems addressed as follows: Enteritis Constipation History of Colitis (Recent): Prior admission for colitis a few weeks ago, no cur rent diarrhea or abdominal tenderness, but duodenal diverticulum on CT raises concern for gastrointestinal pathology. - CT shows stool burden in right hemicolon along with some mild duodenal/jejunitis. Able to gradually advance diet after bowel rest and initiation of antibiotics. White count normal between 8 and 9 during admission. Cultures obtained, remain negative during admission. Able to advance diet. Pain improving. Continue symptomatic management. Symptoms should be self- limited and improve on their own. Acute Kidney Injury (Creatinine 1.6, GFR 44): Improved during admission with hydration and advancement of diet. Normalized by day of discharge. BUN 11, creatinine 0.7 on day of discharge. Hyperkalemia (Potassium 5.5): Elevated potassium on admission, likely secondary to RIGOBERTO. Improved by day of discharge. Stable at approximately 4. Hyperglycemia (Glucose 169): Elevated glucose in a diabetic patient, likely stress-induced from possible sepsis, no evidence of DKA (pH 7.31, negative ketones). Glucose controlled in the mornings. A1c 6.7 during admission.. Chronic pain: Has spinal stimulator in place. States that its on but does not have his remote control. - Severe weakness and chronic pain history, with recent fentanyl and hydrocodone use noted on urinalysis. Treated with Tylenol and pregabalin. Needs to follow- up with his pain team for further management of his back/chronic pain. Monitored for oversedation. Coronary Artery Disease with Prior PCI: No acute chest pain or troponin elevation (<0.01), but at risk for cardiovascular stress from hypotension. Continue metoprolol succinate 25 mg daily, ranolazine 500 mg twice daily, Crestor 40 mg nightly BPH: Continue tamsulosin 0.4 mg Total time spent on discharge 32 minutes in counseling, documentation, chart review, and direct care with patient. Exam Data for Last 24 hours Vital signs and Labs for Last 24 Hours: Temp Pulse Resp BP Pulse Ox O2 Del Method 98.4 F 68 17 126/74 99 Room Air 05/23/24 04:00 05/23/24 04:00 05/23/24 04:00 05/23/24 04:00 05/23/24 04:00 05/23/24 05:00 Laboratory Results - last 24 hr 05/22/24 05:58: Total Counted 100, Neutrophils % (Manual) 27 L, Band Neutrophils % 1.0, Lymphocytes % (Manual) 61 H, Monocytes % (Manual) 9, Eosinophils % (Manual) 2, Platelet Estimate Normal, RBC Morphology Normal 05/22/24 11:02: POC Glucose 139 H 05/22/24 15:38: POC Glucose 121 H 05/22/24 21:16: POC Glucose 129 H 05/23/24 06:09: WBC 8.2, RBC 4.67, Hgb 14.4, Hct 41.8 L, MCV 89.5, MCH 30.8, MCHC 34.4, RDW 13.3, Plt Count 196, MPV 10.3, Neut % (Auto) 37.1, Lymph % (Auto) 51.2 H, [place] % (Auto) 5.5, Eos % (Auto) 5.1, Baso % (Auto) 1.0, Neut # (Auto) 3.0, Lymph # (Auto) 4.2, [place] # (Auto) 0.5, Eos # (Auto) 0.4, Baso # (Auto) 0.1, Sodium 139, Potassium 4.8, Chloride 109 H, Carbon Dioxide 23, Anion Gap 11.8, BUN 11 D, Creatinine 0.70 D, Estimated Creat Clear 99, Estimated GFR 113, Est GFR ( Amer) 137 D, Glucose 95, POC Glucose 96, Calcium 8.9 I & O for Last 24 hours: Intake & Output 05/20/24 05/21/24 05/22/24 05/23/24 23:59 23:59 23:59 23:59 Intake Total 1370 / 1820 450 / 450 Output Total 1700 / 2500 1350 / 1350 Balance -330 / -680 -900 / -900 Weight 92.986 kg 95.028 kg 94.801 kg Microbiology Reports for the Last 24 Hours: Microbiology 05/21/24 20:19 Blood Blood Culture - Preliminary NO GROWTH AFTER 24 HOURS 05/21/24 20:19 Blood Blood Culture - Preliminary NO GROWTH AFTER 24 HOURS Constitutional Constitutional: no acute distress, average body habitus, chronically ill appearing and cooperative *Routine HEENT Exam Head: Present normocephalic Eye: Present EOMI and PERRL ENT: Present mucous membranes moist *Routine Neck Exam Neck: Present supple; Absent lymphadenopathy *Routine Respiratory Exam Respiratory: Present CTA bilaterally; Absent rhonchi, wheezes or crackles *Routine Cardiovascular Exam Cardiovascular: Present RRR *Routine Abdominal Exam Abdominal: Present soft, normoactive bowel sounds and tenderness (improving, mild in right abdomen) *Routine Rectal Exam Patient deferred: visual exam *Routine Exam Patient deferred: penile exam *Routine Extremities Exam Extremities: Absent cyanosis, clubbing or edema *Routine Skin Exam Skin: Present intact and warm; Absent rash *Routine Neurological Exam Neurological: Present alert, oriented X3 and moving all extremities; Absent altered mental status Results Data Completed and Pending Labs on day of discharge: Labs from last 24 hours 05/23/24 05/22/24 05/22/24 06:09 21:16 15:38 WBC 8.2 RBC 4.67 Hgb 14.4 Hct 41.8 L MCV 89.5 MCH 30.8 MCHC 34.4 RDW 13.3 Plt Count 196 MPV 10.3 Neut % (Auto) 37.1 Lymph % (Auto) 51.2 H [place] % (Auto) 5.5 Eos % (Auto) 5.1 Baso % (Auto) 1.0 Neut # (Auto) 3.0 Lymph # (Auto) 4.2 [place] # (Auto) 0.5 Eos # (Auto) 0.4 Baso # (Auto) 0.1 Total Counted Neutrophils % (Manual) Band Neutrophils % Lymphocytes % (Manual) Monocytes % (Manual) Eosinophils % (Manual) Platelet Estimate RBC Morphology Sodium 139 Potassium 4.8 Chloride 109 H Carbon Dioxide 23 Anion Gap 11.8 BUN 11 D Creatinine 0.70 D Estimated Creat Clear 99 Estimated GFR 113 Est GFR ( Amer) 137 D Glucose 95 POC Glucose 96 129 H 121 H Calcium 8.9 05/22/24 05/22/24 11:02 05:58 WBC RBC Hgb Hct MCV MCH MCHC RDW Plt Count MPV Neut % (Auto) Lymph % (Auto) [place] % (Auto) Eos % (Auto) Baso % (Auto) Neut # (Auto) Lymph # (Auto) [place] # (Auto) Eos # (Auto) Baso # (Auto) Total Counted 100 Neutrophils % (Manual) 27 L Band Neutrophils % 1.0 Lymphocytes % (Manual) 61 H Monocytes % (Manual) 9 Eosinophils % (Manual) 2 Platelet Estimate Normal RBC Morphology Normal Sodium Potassium Chloride Carbon Dioxide Anion Gap BUN Creatinine Estimated Creat Clear Estimated GFR Est GFR ( Amer) Glucose POC Glucose 139 H Calcium Preliminary micro results at discharge 05/21/24 20:19 Blood Culture - Preliminary Blood NO GROWTH AFTER 24 HOURS 05/21/24 20:19 Blood Culture - Preliminary Blood NO GROWTH AFTER 24 HOURS DS: Diagnosis Discharge Diagnosis (1) Enteritis: Status: Acute Code(s): K52.9 - Noninfective gastroenteritis and colitis, unspecified (2) Right flank pain: Status: Acute Code(s): R10.9 - Unspecified abdominal pain (3) Hypercalcemia: Status: Acute Code(s): E83.52 - Hypercalcemia (4) Dehydration: Status: Acute Code(s): E86.0 - Dehydration (5) Tobacco use: Status: Chronic Code(s): Z72.0 - Tobacco use (6) Diabetes: Status: Chronic Code(s): E11.9 - Type 2 diabetes mellitus without complications Qualifiers: Diabetes mellitus complication status: without complication Diabetes mellitus terminal operations manager insulin use: without terminal operations manager use Diabetes mellitus type: type 2 Qualified Code(s): E11.9 - Type 2 diabetes mellitus without complications (7) Hypotension: Status: Acute Code(s): I95.9 - Hypotension, unspecified (8) Constipation: Status: Acute Code(s): K59.00 - Constipation, unspecified Qualifiers: Constipation type: unspecified constipation type Qualified Code(s): K59.00 - Constipation, unspecified (9) Hypertension: Status: Chronic Code(s): I10 - Essential (primary) hypertension Qualifiers: Hypertension type: primary hypertension Qualified Code(s): I10 - Essential (primary) hypertension (10) Hyperlipidemia: Status: Chronic Code(s): E78.5 - Hyperlipidemia, unspecified Qualifiers: Hyperlipidemia type: mixed hyperlipidemia Qualified Code(s): E78.2 - Mixed hyperlipidemia Meds Home Medications and Allergies Home Medications ?Medication ?Instructions ?Recorded ?Confirmed ?Type omeprazole 40 mg capsule,delayed 40 mg PO DAILY 10/15/21 05/21/24 History release metoprolol succinate 25 mg 25 mg PO DAILY #90 tabs 09/28/23 05/21/24 Rx tablet,extended release 24 hr insulin glargine U-300 conc 300 36 unit SQ HS 01/16/24 05/21/24 History unit/mL (3 mL) subcutaneous pen (Toujeo Max U-300 SoloStar) blood sugar diagnostic (Accu-Chek 01/17/24 05/21/24 History Guide test strips) lancets (Accu-Chek Softclix 01/17/24 05/21/24 History Lancets) ranolazine 500 mg tablet,extended 500 mg PO BID 30 days #60 tabs 01/17/24 05/21/24 Rx release,12 hr duloxetine 30 mg capsule,delayed 30 mg PO DAILY 05/17/24 05/21/24 History release midodrine 5 mg tablet 5 mg PO TID 05/17/24 05/21/24 History nitroglycerin 0.4 mg sublingual 0.4 mg sublingual Q5MINP PRN Chest 05/17/24 05/21/24 History tablet Pain pregabalin 25 mg capsule 25 mg PO BID 05/17/24 05/21/24 History rosuvastatin 40 mg tablet 40 mg PO HS 05/17/24 05/22/24 History hydrocodone 5 mg-acetaminophen 325 1 tab PO Q6H PRN pain #12 tabs 05/18/24 05/21/24 Rx mg tablet tamsulosin 0.4 mg capsule 0.4 mg PO HS 30 days #30 caps 05/18/24 05/21/24 Rx New Prescriptions to Start Prescriptions: Allergies Allergy/AdvReac Type Severity Reaction Status Date / Time bee venom protein (honey bee) Allergy Anaphylaxis Verified 05/18/24 02:16 gabapentin Allergy Anaphylaxis Verified 05/18/24 02:16 Discharge Plan Disposition Patient Disposition: Home, Self-Care Condition: Fair Follow up Plan Follow up with: Mila Lange [Referring] - 05/24/24 1:30 pm Prescriptions/Medication Reconciliation: Continued insulin glargine U-300 conc [Toujeo Max U-300 SoloStar] 300 unit/mL (3 mL) insulin pen 36 unit SQ HS (DME) Accu-Chek Guide test strips Strip MISCELLANEOUS (DME) lancets [Accu-Chek Softclix Lancets] Misc MISCELLANEOUS ranolazine 500 mg Tablet Extended Release 12 Hr 500 mg PO BID 30 Days Qty: 60 0RF midodrine 5 mg tablet 5 mg PO TID nitroglycerin 0.4 mg tablet, sublingual 0.4 mg sublingual Q5MINP PRN (Reason: Chest Pain) rosuvastatin 40 mg tablet 40 mg PO HS duloxetine 30 mg capsule,delayed release(DR/EC) 30 mg PO DAILY pregabalin 25 mg capsule 25 mg PO BID tamsulosin 0.4 mg Capsule 0.4 mg PO HS 30 Days Qty: 30 0RF hydrocodone-acetaminophen 5-325 mg tablet 1 tab PO Q6H PRN (Reason: pain) Qty: 12 0RF omeprazole 40 mg Capsule,Delayed Release(Dr/Ec) 40 mg PO DAILY metoprolol succinate 25 mg Tablet Extended Release 24 Hr 25 mg PO DAILY Qty: 90 0RF Discontinued amoxicillin-pot clavulanate [Augmentin] 500-125 mg tablet 1 tab PO TID 7 Days Qty: 21 0RF Rx Instructions: LAST DOSE 05/25/24 Problem Reconciliation Problems Reviewed?: Yes Patient Discharge Instructions ACTIVITY: Continue current activity DIET: continue same diet Patient Instructions: DI for Dehydration -- Adult, DI for Sepsis -- Adult, Stop Light Pneumonia, Stop Light Infection Print Language: [place] Providers Primary Care Provider: Provider,Referral Admit Provider: Naveen Cantu Attending Provider: Naveen Cantu
--- NOTE | 2024-05-23 07:27 | PC.WOUNDNOTE ---
Pt. is alert and orientated x 4. Pt. is on room air. Pt. on IVF. Iv antibiotics given and tolerated well. Pt. on full liquid diet, tolerating well. c/o feeling hungary. Pt. states that he feels a lot better now than when he came into the hospital. Pt. sleeping on and off this shift. Personal items and call hale in reach.
[2024-05-23 08:00] VITALS: BP 123/79; PULSE 76; RESP 16; TEMP 36.7; O2SAT 93
[2024-05-23 08:37] LABS: Eosinophils % 6 % (0-3); Lymphocytes % 51 % (10-50); Monocytes % 6 % (2-9); Neutrophils % 37 % (42-76); Platelet Estimate Normal; RBC Morphology Normal; Total Cells Counted 100
[2024-05-23] MEDS: METOPROLOL SUCCINATE XL 25MG TABLET 25 MG PO (08:59)
[2024-05-23] MEDS: DULOXETINE 30MG CAPSULE.DR 30 MG PO (08:59)
[2024-05-23] MEDS: RANOLAZINE 500MG ER TABLET 500 MG PO (08:59)
[2024-05-23] MEDS: ENOXAPARIN 40MG/0.4ML SYRINGE 40 MG SUBCUT (08:59)
[2024-05-23] MEDS: PREGABALIN 25MG CAPSULE 25 MG PO (09:02)
[2024-05-23] MEDS: VANCOMYCIN/WATER FOR INJ (PEG) 1.75 GM/350 ML PIGGYBACK IV (09:38)
[2024-05-23 10:41] LABS: Magnesium 1.9 mg/dl (1.6-2.3)
[2024-05-23 10:49] LABS: POC Glucose,Bedside 190 (70-110)
[2024-05-23 12:00] VITALS: BP 136/82; PULSE 80; RESP 20; TEMP 36.7; O2SAT 95
--- NOTE | 2024-05-25 10:50 | SW/DCPLANNER ---
Spoke with patient on the phone. Patient stated that he feels better than he has felt in 2 years. Patient stated that he is aware of his upcoming appointment. Patient stated that he was able to get his new medicine picked up. Patient stated that he has no concerns or questions at this time. Tianna Jimenez
== END 2024-05-23 14:39 | disposition home or self-care (01) ==
LOC: ER 20:17 → 2ND 22:13
PROVIDERS: Internal Medicine Adolescent Medicine; Nurse Practitioner Family; Admitting Provider Student in an Organized Health Care Education/Training Program; Emergency Provider Student in an Organized Health Care Education/Training Program; Visit Provider Student in an Organized Health Care Education/Training Program
DX: K52.9 Noninfective gastroenteritis and colitis, unspecified (principal); E86.0 Dehydration; E83.52 Hypercalcemia; R10.9 Unspecified abdominal pain; E11.9 Type 2 diabetes mellitus without complications; I95.9 Hypotension, unspecified; K59.00 Constipation, unspecified; I10 Essential (primary) hypertension; E78.2 Mixed hyperlipidemia; F17.210 Nicotine dependence, cigarettes, uncomplicated; Z95.5 Presence of coronary angioplasty implant and graft; Z79.4 Long term (current) use of insulin; Z88.8 Allergy status to other drugs, medicaments and biological substances; N17.9 Acute kidney failure, unspecified; Z91.030 Bee allergy status; Z96.82 Presence of neurostimulator; G89.29 Other chronic pain
CPT/HCPCS: 36415; 71045; 74177; 80048; 80053; 80307; 81001; 82803; 82962; 83605; 83690; 83735; 84100; 84484; 85007; 85025; 85027; 85610; 87040; 87633; 93005; 97163; 97166; 99291; G0378; J0131; J1650; J1885; J2543; J3010; J3370; J3372; J3475; J7030; J7120; Q9967

== ENCOUNTER 2024-06-11 18:05 | Emergency (ER) | payer MEDICARE, SELFPAY ==
--- NOTE | 2024-06-11 18:23 | ED_ITS ---
Discharge Plan Disposition Patient Disposition: Home, Self-Care Condition: Good Prescriptions Prescriptions: No Action insulin glargine U-300 conc [Toujeo Max U-300 SoloStar] 300 unit/mL (3 mL) insulin pen 36 unit SQ HS (DME) Accu-Chek Guide test strips Strip MISCELLANEOUS (DME) lancets [Accu-Chek Softclix Lancets] Misc MISCELLANEOUS ranolazine 500 mg Tablet Extended Release 12 Hr 500 mg PO BID 30 Days Qty: 60 0RF midodrine 5 mg tablet 5 mg PO TID nitroglycerin 0.4 mg tablet, sublingual 0.4 mg sublingual Q5MINP PRN (Reason: Chest Pain) rosuvastatin 40 mg tablet 40 mg PO HS duloxetine 30 mg capsule,delayed release(DR/EC) 30 mg PO DAILY pregabalin 25 mg capsule 25 mg PO BID tamsulosin 0.4 mg Capsule 0.4 mg PO HS 30 Days Qty: 30 0RF hydrocodone-acetaminophen 5-325 mg tablet 1 tab PO Q6H PRN (Reason: pain) Qty: 12 0RF omeprazole 40 mg Capsule,Delayed Release(Dr/Ec) 40 mg PO DAILY metoprolol succinate 25 mg Tablet Extended Release 24 Hr 25 mg PO DAILY Qty: 90 0RF Referrals Follow up/Referrals: Mila Lange [Primary Care Provider] - See instructions Activity Restrictions/Add. Instructions Additional Instructions/Restrictions: As we discussed start taking a baby aspirin a day. I recommend Tylenol alternating with ibuprofen along with a baby aspirin a day. Please use warm compresses and elevate the extremity. If you notice any worsening or new signs and symptoms follow-up with your PCP return to the ER as needed. Clinical Impressions Clinical Impression: Superficial thrombophlebitis Qualifiers: Superficial thrombophlebitis-Involved body area: upper extremity Laterality: right Qualified Code(s): I80.8 - Phlebitis and thrombophlebitis of other sites Print Language Print Language: [place] Timorese Discharge ED Provider: Harvey Mulligan General Adult HPI <ZI Naranjo - Last Filed: 06/11/24 21:55> General Chief complaint: Skin/Abscess/Foreign Body Stated complaint: red, swollen right arm Time Seen by Provider: 06/11/24 18:23 History of Present Illness HPI narrative: Patient presents for right upper extremity pain. Patient was admitted for several days beginning of May of this year. However patient was ultimately discharged home and has had no problems until last night. He states that he started having pain in the medial aspect of his right upper extremity just distal to the elbow. He reports it is very sore to touch and appears to be swelling. There is a hard knot. He has no loss of motor or sensory has full range of motion. He denies any fever chest pain shortness of breath hemoptysis hematochezia melena nausea vomiting diarrhea. He went to the [facility] who referred him on to the emergency department. Related Data Home Medications ?Medication ?Instructions ?Recorded ?Confirmed omeprazole 40 mg capsule,delayed 40 mg PO DAILY 10/15/21 06/11/24 release insulin glargine U-300 conc 300 36 unit SQ HS 01/16/24 06/11/24 unit/mL (3 mL) subcutaneous pen (Toujeo Max U-300 SoloStar) blood sugar diagnostic (Accu-Chek 01/17/24 06/11/24 Guide test strips) lancets (Accu-Chek Softclix 01/17/24 06/11/24 Lancets) duloxetine 30 mg capsule,delayed 30 mg PO DAILY 05/17/24 06/11/24 release midodrine 5 mg tablet 5 mg PO TID 05/17/24 06/11/24 nitroglycerin 0.4 mg sublingual 0.4 mg sublingual Q5MINP PRN Chest 05/17/24 06/11/24 tablet Pain pregabalin 25 mg capsule 25 mg PO BID 05/17/24 06/11/24 rosuvastatin 40 mg tablet 40 mg PO HS 05/17/24 06/11/24 Previous Rx's ?Medication ?Instructions ?Recorded metoprolol succinate 25 mg 25 mg PO DAILY #90 tabs 09/28/23 tablet,extended release 24 hr ranolazine 500 mg tablet,extended 500 mg PO BID 30 days #60 tabs 01/17/24 release,12 hr hydrocodone 5 mg-acetaminophen 325 1 tab PO Q6H PRN pain #12 tabs 05/18/24 mg tablet tamsulosin 0.4 mg capsule 0.4 mg PO HS 30 days #30 caps 05/18/24 Allergies Allergy/AdvReac Type Severity Reaction Status Date / Time bee venom protein (honey bee) Allergy Anaphylaxis Verified 06/11/24 17:45 gabapentin Allergy Anaphylaxis Verified 06/11/24 17:45 [facility] <ZI Naranjo - Last Filed: 06/11/24 21:55> [facility] Disclaimer: The information contained in this section may have been updated after the patient was seen, as this information can be updated by other users. Medical History Leukocytosis Enlarged prostate Dizziness Angina pectoris Coronary artery disease Syncope Cystic lung, congenital History of pneumothorax Atrial fibrillation and flutter Presence of stent in LAD coronary artery Pericardial effusion without cardiac tamponade PNA (pneumonia) Diabetes GERD (gastroesophageal reflux disease) Pericarditis Angina at rest History of heart attack Hyperlipidemia Palpitations Hypertension Heart murmur Arrhythmia History of left heart catheterization (LHC) RBBB (right bundle branch block with left anterior fascicular block) Surgical History Hx of heart artery stent Previous back surgery Family History Other Family history of COPD (chronic obstructive pulmonary disease) Family history of hyperlipidemia Family history of hypertension Family history of myocardial infarction Family history of stroke Lung cancer Social History Smoking Status: Former smoker alcohol intake: former current occupational status: previously employed and disabled Travel in the last 8 weeks?: None Have you lived/traveled outside US in past 30 days?: No Contact w/someone who lives/traveled outside US past 30 days?: No Exposure to someone with infectious disease in past 14 days?: No Do you have a fever (greater than 100.4 F or 38 C)?: No Have you tested positive for COVID-19?: No Exposed to someone with COVID-19 in past 14 days?: No Do you have a sore throat?: No Do you have a cough?: No Do you have any weakness?: No Do you have any diarrhea?: No Are you experiencing any unusual bleeding?: No Do you have any muscle aches/pain?: No Do you have any abdominal pain?: No Are you experiencing loss of taste or smell?: No Other Medical History Have you received the Flu Vaccine for this season: No Have you received the Pneumonia Vaccine: No <ZI Naranjo - Last Filed: 06/11/24 21:55> ROS Obtained: Yes Systems reviewed as appropriate & no additional complaints except as documented Physical Exam <ZI Naranjo - Last Filed: 06/11/24 21:55> General General appearance: alert and in no apparent distress Respiratory Respiratory exam: Present normal lung sounds bilaterally Cardiovascular Cardiovascular exam: Present regular rate Neurological Exam Neurological exam: Present alert and oriented X3 Medical Decision Making <ZI Naranjo - Last Filed: 06/11/24 21:55> Medical Records Medical records reviewed: Yes I reviewed the patient's medical records. Screening: Per USPSTF and CDC recommendations, given the prevalence of disease in our region, it is our hospital?s policy to screen for HIV and viral Hepatitis for all patients aged 18 and over and those with ongoing risk factors. Moshe Inquiry Pt receiving controlled substance: No Vital Signs: 06/11/24 19:36 06/11/24 19:37 Temperature 97.8 F 97.8 F Temperature Source Oral Pulse Rate 78 Pulse Rate [Radial] 68 Respiratory Rate 14 14 Blood Pressure 134/76 Blood Pressure [Left Arm] 142/72 H Blood Pressure Mean [Left Arm] 95 Blood Pressure Position Sitting Blood Pressure Position [Left Arm] Sitting 02 Sat by Pulse Oximetry 95 Oxygen Delivery Method Room Air Room Air Orders (Tests/Meds): ORDERS Category Date Time Status POCUS Point of Care (ER Only) Stat Exams 06/11/24 19:03 Completed Medical Decision Narrative: In summary patient is a 63-year-old male who presents to the emergency department for evaluation of right upper arm pain and swelling. Patient is hemodynamically stable upon arrival, afebrile. Physical exam is remarkable for a very firm knot just distal to the medial epicondyle. There is some slight local swelling but there is no erythema or induration. I am not able to palpate a cord.. Differential diagnosis includes superficial thrombophlebitis versus lipoma versus abscess etc. Initial workup will be conducted with POCUS. Initial interventions include Tylenol and ibuprofen however patient's already taken both thus deferred. Initial workup reviewed by me and POCUS shows superficial thrombophlebitis extending proximally but not to the axilla. Given this patient is appropriate for discharge with instructions to take an aspirin today, follow-up with his PCP within 48 hours for recheck, instructions for warm compresses and elevation. Patient verbalized understanding agreement. <Harvey Mulligan MD - Last Filed: 06/12/24 15:42> Vital Signs: 06/11/24 19:36 06/11/24 19:37 Temperature 97.8 F 97.8 F Temperature Source Oral Pulse Rate 78 Pulse Rate [Radial] 68 Respiratory Rate 14 14 Blood Pressure 134/76 Blood Pressure [Left Arm] 142/72 H Blood Pressure Mean [Left Arm] 95 Blood Pressure Position Sitting Blood Pressure Position [Left Arm] Sitting 02 Sat by Pulse Oximetry 95 Oxygen Delivery Method Room Air Room Air Orders (Tests/Meds): ORDERS Category Date Time Status POCUS Point of Care (ER Only) Stat Exams 06/11/24 19:03 Completed Medical Decision Narrative: In summary patient is a 63-year-old male who presents to the emergency department for evaluation of right upper arm pain and swelling. Patient is hemodynamically stable upon arrival, afebrile. Physical exam is remarkable for a very firm knot just distal to the medial epicondyle. There is some slight local swelling but there is no erythema or induration. I am not able to palpate a cord.. Differential diagnosis includes superficial thrombophlebitis versus lipoma versus abscess etc. Initial workup will be conducted with POCUS. Initial interventions include Tylenol and ibuprofen however patient's already taken both thus deferred. Initial workup reviewed by me and POCUS shows superficial thrombophlebitis extending proximally but not to the axilla. Given this patient is appropriate for discharge with instructions to take an aspirin today, follow-up with his PCP within 48 hours for recheck, instructions for warm compresses and elevation. Patient verbalized understanding agreement. I was consulted by the SRUTHI, and we discussed the complexity of the problems being addressed. I approved the treatment and management plan for this patient's care in the Emergency Department, thus performing a substantive portion of the medical decision making. Harvey Mulligan MD Procedures <Harvey Mulligan MD - Last Filed: 06/12/24 15:42> Limited Ultrasound Indication:: Limited DVT ultrasound Indication: Limited compression ultrasonography of the right upper extremity was performed to evaluate for non-compressibility of the deep veins in the patient. The ultrasound was performed with the following indications, as noted in the H&P: Right upper extremity pain, recent IV and hospitalization Identified structures: Right ulnar vein, radial vein, cephalic vein, basilic vein, axillary vein. Findings: Upper extremity: Right UV good compressibility Right RV: Good compressibility Right Cephalic vein: Good compressibility Right Basilic vein: Good compressibility Right Axillary vein: Good compressibility Impression: No DVT on right upper extremity DVT ultrasound. He does have superficial venous thrombosis. Images were saved to permanent archive The study was technically adequate CPT: [id number] (complete bilateral study) This study was performed by me, and I personally interpreted all images/videos. Based on my clinical judgement, these images were adequate and did not necessitate further imaging Critical Care <ZI Naranjo - Last Filed: 06/11/24 21:55> Critical Care Time Critical Care Time: No
--- NOTE | 2024-06-11 19:18 | PC.NURSE ---
Pt resting quietly in recliner. Skin pink warm and dry MD at bedside to ultrasound arm Resp full and easy Speech clear and appropriate.
[2024-06-11 19:36] VITALS: BP 134/76; PULSE 78; RESP 14; TEMP 36.6; O2SAT 94
[2024-06-11 19:37] VITALS: BP 142/72; PULSE 68; RESP 14; TEMP 36.6; O2SAT 95; BMI 26.6
== END 2024-06-11 19:37 | disposition home or self-care (01) ==
PROVIDERS: Emergency Provider Emergency Medicine; PCP Family Medicine
DX: I80.8 Phlebitis and thrombophlebitis of other sites (principal)
CPT/HCPCS: 99284

== ENCOUNTER 2024-06-25 12:17 | Observation (INO) | payer MEDICARE, SELFPAY ==
[2024-06-25] VITALS (17 sets, daily range): BP systolic 109–148; BP diastolic 79–108; PULSE 39–125; RESP 13–28; TEMP 36.6–36.8; O2SAT 92–98; BMI 29.1; BMI 28.7
--- NOTE | 2024-06-25 12:18 | ECG_ITS ---
APPROVED REPORT Exam: Resting ECG HR:126 bpm ECG Measurements Heart Rate 126 AXES QRSd 138 QRS -81 QT 338 T 61 QTc 413 Conclusion ATRIAL FIBRILLATION WITH RAPID VENTRICULAR RESPONSE RIGHT BUNDLE BRANCH BLOCK [120+ ms QRS DURATION, UPRIGHT V1, 40+ ms S IN I/aVL/V4/V5/V6] LEFT ANTERIOR FASCICULAR BLOCK [QRS AXIS <= -45, QR IN I, RS IN II] POSSIBLE SEPTAL MYOCARDIAL INFARCTION , OF INDETERMINATE AGE [30 ms Q WAVE IN V1/V2] ABNORMAL ECG UNCONFIRMED REPORT Electronically signed by : Nidia Ponce, 06/25/2024 15:57:44
--- NOTE | 2024-06-25 12:23 | PC.NURSE ---
POC GLU [id number]
--- NOTE | 2024-06-25 12:24 | ECG_ITS ---
APPROVED REPORT Exam: Resting ECG HR:124 bpm ECG Measurements Heart Rate 124 AXES GA 158 P 48 QRSd 142 QRS -81 QT 357 T 62 QTc 430 Conclusion SINUS TACHYCARDIA WITH FREQUENT SUPRAVENTRICULAR PREMATURE COMPLEXES LEFT AXIS DEVIATION [QRS AXIS < -30] RIGHT BUNDLE BRANCH BLOCK [120+ ms QRS DURATION, UPRIGHT V1, 40+ ms S IN I/aVL/V4/V5/V6] POSSIBLE SEPTAL MYOCARDIAL INFARCTION , OF INDETERMINATE AGE [30 ms Q WAVE IN V1/V2] ABNORMAL ECG UNCONFIRMED REPORT Electronically signed by : Nidia Ponce, 06/25/2024 15:58:11
--- NOTE | 2024-06-25 12:34 | XR_ITS ---
FINAL REPORT CLINICAL HISTORY: CP COMPARISON: 05/21/2024 FINDINGS: Mild cardiomegaly is present. The lungs are underinflated. The mediastinum is normal. There is no focal infiltrate or edema. There are no pleural effusions. There is no pneumothorax. There is no osseous abnormality. IMPRESSION: No acute cardiopulmonary process Reviewed, Interpreted and Dictated by Jeison Brooks MD Transcribed by Liz Maxwell Authenticated and [facility]
--- NOTE | 2024-06-25 12:40 | CT_ITS ---
FINAL REPORT TECHNIQUE: The patient was injected with IV contrast. Axial images were obtained through the chest in a PE protocol. 3-D reconstruction images were also performed. Individualized dose reduction techniques using automated exposure control or adjustment of the MA and/or KV according to patient's size were employed. CLINICAL HISTORY: acute chest pain COMPARISON: 01/16/2024 FINDINGS: Mediastinal vasculature is adequately opacified. No pulmonary artery filling defects are identified to suggest PE. There is no aortic dissection. There is no axillary adenopathy. There is no hilar or mediastinal adenopathy. The heart size is normal. Dense coronary artery calcifications are present. There is no pericardial or pleural effusion. Limited images of the upper abdomen are unremarkable. No suspicious infiltrate or nodule is identified. Scarring is present in the right middle lobe and the superior segment of the right lower lobe. Multiple bullae are present in the lung bases. IMPRESSION: No pulmonary embolus or dissection. Dense coronary artery calcifications are present. Reviewed, Interpreted and Dictated by Jeison Brooks MD Transcribed by Liz Maxwell Authenticated and [facility]
[2024-06-25 12:44] LABS: Basophils # 0.1 K/mm3 (0-0.2); Basophils % 0.5 % (0.1-2.0); Eosinophils # 0.3 Kmm3 (0.0-0.4); Eosinophils % 2.7 % (0.1-12.0); Hematocrit 43.4 % (42.0-52.0); Hemoglobin 15.6 g/dL (14.1-18.0); Immature Granulocytes # 0.02 10^3uL; Immature Granulocytes % 0.2 %; Lymphocytes # 5.2 K/mm3 (0.7-4.5); Lymphocytes % 54.7 % (10-50); Mean Corpuscular HGB Conc 35.9 g/dL (31.8-35.4); Mean Corpuscular Hemoglobin 31.6 pg (27.0-31.2); Mean Corpuscular Volume 87.9 fl (80-94); Mean Platelet Volume 10.6 fl (7.4-10.4); Monocytes # 0.7 K/mm3 (0.1-1.0); Monocytes % 6.8 % (1.7-9.3); Neutrophils # 3.4 K/mm3 (1.8-7.8); Neutrophils % 35.1 % (37.0-80.0); Nucleated Red Blood Cells # 0 10^3/uL; Nucleated Red Blood Cells % 0 %; Platelet Count 196 K/mm3 (142-424); Red Blood Count 4.94 M/mm3 (4.60-6.20); Red Cell Distribution Width-SD 41.6 fL; White Blood Count 9.6 K/mm3 (4.8-10.8)
[2024-06-25 12:46] LABS: MANUAL DIFFERENTIAL MANUAL DIFFERENTIAL (MANUAL DIFF)
[2024-06-25] MEDS: NITROGLYCERIN 0.4MG SL TABLET 0.4 MG SL (12:46)
[2024-06-25 12:47] LABS: Alanine Aminotransferase 40 U/L (12-78); Albumin Level 4.5 g/dl (3.5-5.0); Albumin/Globulin Ratio 1.7 (1.1-1.8); Alkaline Phosphatase 113 U/L (38-126); Anion Gap 12.1 mEq/L (5-15); Aspartate Amino Transferase 34 U/L (17-59); Bilirubin,Total 0.5 mg/dl (0.2-1.3); Blood Urea Nitrogen 16 mg/dl (9-20); Calcium 9.5 mg/dl (8.4-10.2); Carbon Dioxide 23 mmol/L (22.0-30.0); Chloride 103 mmol/L (98-107); Estimated Glomerular Filt Rate 135 ml/min (>60); GFR (African American) 164 ML/MIN (>60); Globulin 2.6 g/dL (1.3-3.2); Potassium 4.1 mmoL/L (3.5-5.1); Sodium 134 mmol/L (136-145); Total Protein,Serum 7.1 g/dl (6.3-8.2)
--- NOTE | 2024-06-25 12:52 | ECG_ITS ---
APPROVED REPORT Exam: Resting ECG HR:163 bpm ECG Measurements Heart Rate 163 AXES QRSd 128 QRS -81 QT 295 T 67 QTc 385 Conclusion ATRIAL FIBRILLATION WITH RAPID VENTRICULAR RESPONSE RIGHT BUNDLE BRANCH BLOCK [120+ ms QRS DURATION, UPRIGHT V1, 40+ ms S IN I/aVL/V4/V5/V6] LEFT ANTERIOR FASCICULAR BLOCK [QRS AXIS <= -45, QR IN I, RS IN II] POSSIBLE SEPTAL MYOCARDIAL INFARCTION , PROBABLY OLD [30 ms Q WAVE IN V1/V2] ST DEPRESSION, CONSIDER SUBENDOCARDIAL INJURY [0.1+ mV ST DEPRESSION] CRITICAL TEST RESULT UNCONFIRMED REPORT Electronically signed by : Nidia Ponce, 06/25/2024 15:58:22
--- NOTE | 2024-06-25 12:52 | PC.NURSE ---
Called and had cardiology paged to call the ER about this pt
[2024-06-25 12:54] LABS: Glucose 408 mg/dl (74-100)
--- NOTE | 2024-06-25 12:55 | PC.NURSE ---
Cardiology called and is speaking with Dr Ponce
--- NOTE | 2024-06-25 13:03 | PC.NURSE ---
1251 HR on monitor noted to be 170. 1308 additional IV access obtained. Pt to CT scan [address] scan
[2024-06-25 13:04] LABS: Troponin I < 0.01 ng/ml (0.00-0.034)
[2024-06-25 13:17] LABS: Eosinophils % 4 % (0-3); Lymphocytes % 63 % (10-50); Monocytes % 7 % (2-9); Neutrophils % 25 % (42-76); Total Cells Counted 100
[2024-06-25 13:18] LABS: Platelet Estimate Normal; RBC Morphology Normal
[2024-06-25] MEDS: IOPAMIDOL-370 (76%);100ML BOTTLE 70 ML IV (13:20)
[2024-06-25] MEDS: SODIUM CHLORIDE 0.9% 10ML SYR (RAD ONLY) 10 ML IV (13:20)
[2024-06-25] MEDS: 0.9 % SODIUM CHLORIDE 50 ML VIAL IV (13:20)
--- NOTE | 2024-06-25 13:25 | ED_ITS ---
Discharge Plan Disposition Patient Disposition: Admitted Condition: Good Prescriptions Prescriptions: No Action insulin glargine U-300 conc [Toujeo Max U-300 SoloStar] 300 unit/mL (3 mL) insulin pen 36 unit SQ HS (DME) Accu-Chek Guide test strips Strip MISCELLANEOUS (DME) lancets [Accu-Chek Softclix Lancets] Misc MISCELLANEOUS ranolazine 500 mg Tablet Extended Release 12 Hr 500 mg PO BID 30 Days Qty: 60 0RF midodrine 5 mg tablet 5 mg PO TID nitroglycerin 0.4 mg tablet, sublingual 0.4 mg sublingual Q5MINP PRN (Reason: Chest Pain) rosuvastatin 40 mg tablet 40 mg PO HS duloxetine 30 mg capsule,delayed release(DR/EC) 30 mg PO DAILY pregabalin 25 mg capsule 25 mg PO BID tamsulosin 0.4 mg Capsule 0.4 mg PO HS 30 Days Qty: 30 0RF hydrocodone-acetaminophen 5-325 mg tablet 1 tab PO Q6H PRN (Reason: pain) Qty: 12 0RF omeprazole 40 mg Capsule,Delayed Release(Dr/Ec) 40 mg PO DAILY metoprolol succinate 25 mg Tablet Extended Release 24 Hr 25 mg PO DAILY Qty: 90 0RF Referrals Follow up/Referrals: Provider,Referral, MD [Referring] - See instructions Clinical Impressions Clinical Impression: Presence of stent in LAD coronary artery, RBBB (right bundle branch block with left anterior fascicular block) Coronary artery disease with unstable angina pectoris Qualifiers: Coronary Disease-Associated Artery/Lesion type: [place] artery [place] vs. transplanted heart: [place] heart Qualified Code(s): I25.110 - Atherosclerotic heart disease of [place] coronary artery with unstable angina pectoris Diabetes Qualifiers: Diabetes mellitus type: type 2 Diabetes mellitus senior care insulin use: without intermodal dispatcher use Diabetes mellitus complication status: without complication Q ualified Code(s): E11.9 - Type 2 diabetes mellitus without complications Print Language Print Language: Mongolian Discharge ED Provider: Nidia Ponce HPI General Chief Complaint: Chest Pain Stated Complaint: Chest Pain Time Seen by Provider: 06/25/24 12:20 History of Present Illness HPI narrative: Tashi Martin is a 63 y/o male presenting with chest pain. Patient reports acute onset chest pain that radiates to his left arm and chest beginning approximately 3 hours ago. Patient took 2 nitroglycerin and 324 mg of aspirin. Patient called his neighbor to be brought to the ER for evaluation. Patient reports history of SC s/p 2 stents. Patient does not take blood thinners anymore. Patient has been told that he has an irregular rhythm. Patient states he has not taken his insulin in multiple days due to well-controlled sugars. Patient reports being at his normal state of health yesterday. Related Data Home Medications ?Medication ?Instructions ?Recorded ?Confirmed omeprazole 40 mg capsule,delayed 40 mg PO DAILY 10/15/21 06/11/24 release insulin glargine U-300 conc 300 36 unit SQ HS 01/16/24 06/11/24 unit/mL (3 mL) subcutaneous pen (Toujeo Max U-300 SoloStar) blood sugar diagnostic (Accu-Chek 01/17/24 06/11/24 Guide test strips) lancets (Accu-Chek Softclix 01/17/24 06/11/24 Lancets) duloxetine 30 mg capsule,delayed 30 mg PO DAILY 05/17/24 06/11/24 release midodrine 5 mg tablet 5 mg PO TID 05/17/24 06/11/24 nitroglycerin 0.4 mg sublingual 0.4 mg sublingual Q5MINP PRN Chest 05/17/24 06/11/24 tablet Pain pregabalin 25 mg capsule 25 mg PO BID 05/17/24 06/11/24 rosuvastatin 40 mg tablet 40 mg PO HS 05/17/24 06/11/24 Previous Rx's ?Medication ?Instructions ?Recorded metoprolol succinate 25 mg 25 mg PO DAILY #90 tabs 09/28/23 tablet,extended release 24 hr ranolazine 500 mg tablet,extended 500 mg PO BID 30 days #60 tabs 01/17/24 release,12 hr hydrocodone 5 mg-acetaminophen 325 1 tab PO Q6H PRN pain #12 tabs 05/18/24 mg tablet tamsulosin 0.4 mg capsule 0.4 mg PO HS 30 days #30 caps 05/18/24 Allergies Allergy/AdvReac Type Severity Reaction Status Date / Time bee venom protein (honey bee) Allergy Anaphylaxis Verified 06/11/24 17:45 gabapentin Allergy Anaphylaxis Verified 06/11/24 17:45 [facility] Disclaimer: The information contained in this section may have been updated after the patient was seen, as this information can be updated by other users. Medical History Leukocytosis Enlarged prostate Dizziness Angina pectoris Coronary artery disease Syncope Cystic lung, congenital History of pneumothorax Atrial fibrillation and flutter Presence of stent in LAD coronary artery Pericardial effusion without cardiac tamponade PNA (pneumonia) Diabetes GERD (gastroesophageal reflux disease) Pericarditis Angina at rest History of heart attack Hyperlipidemia Palpitations Hypertension Heart murmur Arrhythmia History of left heart catheterization (LHC) RBBB (right bundle branch block with left anterior fascicular block) Surgical History Hx of heart artery stent Previous back surgery Family History Other Family history of COPD (chronic obstructive pulmonary disease) Family history of hyperlipidemia Family history of hypertension Family history of myocardial infarction Family history of stroke Lung cancer Social History Smoking Status: Never smoker alcohol intake: former current occupational status: previously employed and disabled Travel in the last 8 weeks?: None Have you lived/traveled outside [place] in past 30 days?: No Contact w/someone who lives/traveled outside US past 30 days?: No Exposure to someone with infectious disease in past 14 days?: No Do you have a fever (greater than 100.4 F or 38 C)?: No Have you tested positive for COVID-19?: No Exposed to someone with COVID-19 in past 14 days?: No Do you have a sore throat?: No Do you have a cough?: No Do you have any weakness?: No Do you have any diarrhea?: No Are you experiencing any unusual bleeding?: No Do you have any muscle aches/pain?: No Do you have any abdominal pain?: No Are you experiencing loss of taste or smell?: No Other Medical History Have you received the Flu Vaccine for this season: No Have you received the Pneumonia Vaccine: No ROS Obtained: Yes All systems reviewed & no additional complaints except as documented Physical Exam General General appearance: alert and in distress Head Head exam: atraumatic Eye Eye exam: Present EOMI; Absent scleral icterus ENT ENT exam: Present normal exam Neck Neck exam: Present full ROM Expanded Neck Exam Neck exam focused ED: Absent JVD Chest Chest inspection: Present symmetric chest wall rise Respiratory Respiratory exam: Present normal lung sounds bilaterally Cardiovascular Cardiovascular exam: Present tachycardia, irregular rhythm and normal heart sounds; Absent systolic murmur, diastolic murmur or JVD Abdominal Exam Abdominal exam: Present soft; Absent distention or tenderness exam: Present deferred Extremities Exam Extremities exam: Present full ROM; Absent edema Back Exam Back exam: Present full ROM Neurological Exam Neurological exam: Present alert and oriented X3 Psychiatric Psychiatric exam: Present normal mood Skin Skin exam: Present warm, dry, pallor and mottled HEART Score HEART Score HEART Score assessment performed?: Yes History (anamnesis): Highly suspicious ECG: Non-specific disturbance Age: 45-65 years Risk factors: 3 or more risk factors Troponin: </= normal limit HEART Score: 6 Critical Care Critical Care Time Critical Care Time: No Medical Decision Making Medical Records Medical records reviewed: Yes I reviewed the patient's medical records. Moshe Inquiry Pt receiving controlled substance: No Vital Signs Vital Signs: 06/25/24 12:23 06/25/24 12:25 06/25/24 12:30 Temperature 98.3 F Temperature Source Oral Pulse Rate 100 H 74 Pulse Rate [Right] 120 H Respiratory Rate 25 H 28 H 16 Blood Pressure 148/88 H 129/97 H Blood Pressure [Right Arm] 148/88 H Blood Pressure Mean 99 103 Blood Pressure Mean [Right Arm] 108 Blood Pressure Source [Right Arm] Automatic Cuff Blood Pressure Position [Right Arm] Sitting 02 Sat by Pulse Oximetry 94 L 94 L 94 L Oxygen Delivery Method Room Air 06/25/24 12:51 06/25/24 13:00 06/25/24 13:18 Temperature Temperature Source Pulse Rate 109 H 125 H 106 H Pulse Rate [Right] Respiratory Rate 26 H 26 H 13 Blood Pressure 109/80 L 121/87 131/95 H Blood Pressure [Right Arm] Blood Pressure Mean 91 91 100 Blood Pressure Mean [Right Arm] Blood Pressure Source [Right Arm] Blood Pressure Position [Right Arm] 02 Sat by Pulse Oximetry 92 L 93 L 95 Oxygen Delivery Method 06/25/24 13:30 06/25/24 14:00 06/25/24 14:30 Temperature Temperature Source Pulse Rate 89 89 84 Pulse Rate [Right] Respiratory Rate 24 24 19 Blood Pressure 131/93 H 125/99 H 122/93 H Blood Pressure [Right Arm] Blood Pressure Mean 107 104 97 Blood Pressure Mean [Right Arm] Blood Pressure Source [Right Arm] Blood Pressure Position [Right Arm] 02 Sat by Pulse Oximetry 95 95 95 Oxygen Delivery Method Lab Data Lab results reviewed: Yes I reviewed the patient's lab results. Labs: Lab Results 06/25/24 12:21: WBC 9.6, RBC 4.94, Hgb 15.6, Hct 43.4, MCV 87.9, MCH 31.6 H, M CHC 35.9 H, RDW 13.0, Plt Count 196, MPV 10.6 H, Neut % (Auto) 35.1 L, Lymph % (Auto) 54.7 H, Cole % (Auto) 6.8, Eos % (Auto) 2.7, Baso % (Auto) 0.5, Neut # (Auto) 3.4, Lymph # (Auto) 5.2 H, Cole # (Auto) 0.7, Eos # (Auto) 0.3, Baso # (Auto) 0.1, Total Counted 100, Neutrophils % (Manual) 25 L, Lymphocytes % (Manual) 63 H, Atypical Lymphs % 1.0, Monocytes % (Manual) 7, Eosinophils % (Manual) 4 H, Platelet Estimate Normal, RBC Morphology Normal, Sodium 134 L, Potassium 4.1, Chloride 103, Carbon Dioxide 23, Anion Gap 12.1, BUN 16, C reatinine 0.60 L, Estimated GFR 135, Est GFR ( Amer) 164, Glucose 408 H*, Calcium 9.5, Total Bilirubin 0.5, AST 34, ALT 40, Alkaline Phosphatase 113, Troponin I < 0.01, Total Protein 7.1, Albumin 4.5, Globulin 2.6, Albumin/Globulin Ratio 1.7 06/25/24 12:21 06/25/24 12:21 Response Orders (Tests/Meds): ED MEDICATIONS Generic Name Dose Route Start Last Admin Trade Name Freq PRN Reason Stop Dose Admin Insulin Glargine 25 unit 06/25/24 21:00 Insulin Glargine 100 Units/Ml 3ml Flexpen SUBCUT 07/25/24 20:59 HS YESSENIA Insulin Human Lispro 0 unit 06/25/24 16:30 Humalog 100 Units/Ml 10ml Vial (Ssi) SUBCUT 07/25/24 16:29 ACHS YESSENIA Protocol Nitroglycerin 0.4 mg 06/25/24 12:34 06/25/24 12:46 Nitroglycerin 0.4mg Sl Tablet SL 06/26/24 12:34 0.4 mg Q5MINP PRN Administration Chest Pain Discontinued Medications Generic Name Dose Route Start Last Admin Trade Name Freq PRN Reason Stop Dose Admin Hydromorphone HCl 0.5 mg 06/25/24 12:34 06/25/24 13:01 Hydromorphone 4 Mg/Ml Syringe IV 06/25/24 12:35 0.5 mg ONCE ONE Administration Iopamidol 70 ml 06/25/24 13:19 06/25/24 13:20 Iopamidol-370 (76%);100ml Bottle IV 06/25/24 13:20 70 ml ONCE ONE Administration Metoprolol Tartrate 5 mg 06/25/24 13:40 06/25/24 13:43 Metoprolol Tartrate 5mg/5ml Vial IV 06/25/24 13:41 5 mg ONCE ONE Administration Nitroglycerin 1 gm 06/25/24 15:06 Nitroglycerin 1 Gm Ointment TD 06/25/24 15:07 ONCE ONE Sodium Chloride 50 ml 06/25/24 13:19 06/25/24 13:20 0.9 % Sodium Chloride 50 Ml Vial IV 06/25/24 13:20 50 ml ONCE ONE Administration Sodium Chloride 10 ml 06/25/24 13:19 06/25/24 13:20 Sodium Chloride 0.9% 10ml Syr (Rad Only) IV 06/25/24 13:20 10 ml ONCE ONE Administration ORDERS Category Date Time Status CTA Chest [CT angio chest - dissection] Stat Cat Scan 06/25/24 12:40 Completed Cardiology Consult [Consult to Cardiology] [CONS] Cons 06/25/24 15:14 Active Routine XR chest portable Stat Exams 06/25/24 12:34 Completed Complete Blood Count Auto Diff AMLAB Lab 06/26/24 06:00 Ordered Complete Blood Count Auto Diff Stat Lab 06/25/24 12:21 Completed Comprehensive Metabolic Panel AMLAB Lab 06/26/24 06:00 Ordered Comprehensive Metabolic Panel Stat Lab 06/25/24 12:21 Completed Magnesium AMLAB Lab 06/26/24 06:00 Ordered Troponin I Q3H Lab 06/25/24 Received Troponin I Q3H Lab 06/25/24 18:45 Ordered Troponin I Stat Lab 06/25/24 12:21 Completed MDM Narrative Medical Decision Narrative: In summary, this is a 63-year-old male presenting with chest pain. Differential diagnosis includes but is not limited to, ACS, aortic dissection, PE, pneumonia, A-fib, unstable angina, among others. Patient evaluated with CBC, CMP, EKG, troponin, CXR. Patient took aspirin load as well as 2 nitroglycerin prior to arrival. Patient appears pale, in distress with tachycardia and normal blood pressure. I attempted to obtain bedside cardiac images via ultrasound, images obtained were not useful in bedside diagnosis, however no large pericardial effusion was noted. Patient's initial EKG demonstrated atrial fibrillation with RVR, no QTc prolongation, no evidence of acute ischemia. Patient then developed recurrence of chest pain and a new EKG was obtained. Second EKG and noted sinus tachycardia with supraventricular premature complexes and no ischemia. Patient's chest pain changed again to include radiation to his back and his heart rate increased to the 170s. A third EKG was obtained which again demonstrated A-fib with RVR, continued right bundle branch and no acute ischemia. At this point, I was concerned with patient's appearance, pain and drastic change in his vitals. I consulted cardiology who reviewed his EKGs remotely and came down for evaluation. While awaiting cardiology arrival, patient was given IV metoprolol which brought his heart rate down to the low 100s. Patient was then taken emergently to the CT scanner for CTA of the chest out of concern for acute aortic dissection. I reviewed the patient's CT scan which did not demonstrate acute aortic dissection, pleural effusion, pulmonary emboli. Patient's labs demonstrated no leukocytosis, anemia, thrombocytopenia. Patient's initial troponin was <0.01. Patient's CMP notable for hyperglycemia of 408. Patient's CXR was negative for pneumothorax, pleural effusion or pulmonary edema. CXR notable for cardiomegaly. Patient evaluated by cardiology at bedside who agreed with no emergent catheterization required as patient's troponins are normal and he does not appear to have acute ACS at this time. While in the emergency department, patient continues to have intermittent chest pain with stable vital signs. I discussed the patient with Dr. Quinn who has agreed to admit the patient to the hospitalist service for unstable angina. Nidia Ponce MD
[2024-06-25] MEDS: METOPROLOL TARTRATE 5MG/5ML VIAL 5 MG IV (13:43)
--- NOTE | 2024-06-25 14:28 | PC.NURSE ---
Provider notified that patient is having chest pain.
--- NOTE | 2024-06-25 15:12 | PC.NURSE ---
is speaking with for possible admission at this time.
--- NOTE | 2024-06-25 15:15 | PC.NURSE ---
Notified of the need for a bed to admit for unstable angina.
--- NOTE | 2024-06-25 15:16 | P.HP_ITS ---
History of Present Illness *Admission Date: 06/25/24 *Reason for visit:: Chest pain *History of present illness: Mr. Martin is a 63-year-old male with history of CAD, hypertension, hyperlipidemia, BPH, diabetes. He presented to the ER with complaint of chest pain. Reports acute onset that radiates to his left arm and chest. Began a couple hours before coming to the ER. Pain somewhat reproducible on exam. Took 2 nitro and 324 mg aspirin at home. Patient reports history of ID s/p 2 stents. Patient does not take blood thinners anymore. Patient has been told that he has an irregular rhythm. Glucose was running normal so he stopped taking his insulin over the past several days. Elevated at 400 on arrival. Labs obtained relatively unremarkable aside from hyperglycemia. Initial troponin negative. Given severity of pain, CT of the chest obtained, negative for dissection. Medicine consulted for admission and further management of suspected unstable angina. Cardiology consulted to assist with care. On arrival to the floor, he stable on room air. No nausea or vomiting. Pain somewhat better. Denies any trauma or strain. [facility] Disclaimer: The information contained in this section may have been updated after the patient was seen, as this information can be updated by other users. Medical History Leukocytosis Enlarged prostate Dizziness Angina pectoris Coronary artery disease Syncope Cystic lung, congenital History of pneumothorax Atrial fibrillation and flutter Presence of stent in LAD coronary artery Pericardial effusion without cardiac tamponade PNA (pneumonia) Diabetes GERD (gastroesophageal reflux disease) Pericarditis Angina at rest History of heart attack Hyperlipidemia Palpitations Hypertension Heart murmur Arrhythmia History of left heart catheterization (LHC) RBBB (right bundle branch block with left anterior fascicular block) Surgical History Hx of heart artery stent Previous back surgery Family History Other Family history of COPD (chronic obstructive pulmonary disease) Family history of hyperlipidemia Family history of hypertension Family history of myocardial infarction Family history of stroke Lung cancer Social History Smoking Status: Current some day smoker alcohol intake: former current occupational status: previously employed and disabled Travel in the last 8 weeks?: None Have you lived/traveled outside US in past 30 days?: No Contact w/someone who lives/traveled outside US past 30 days?: No Exposure to someone with infectious disease in past 14 days?: No Do you have a fever (greater than 100.4 F or 38 C)?: No Have you tested positive for COVID-19?: No Exposed to someone with COVID-19 in past 14 days?: No Do you have a sore throat?: No Do you have a cough?: No Do you have any weakness?: No Are you experiencing any nausea/vomitting?: No Do you have any diarrhea?: No Are you experiencing any unusual bleeding?: No Do you have any muscle aches/pain?: No Do you have any abdominal pain?: No Are you experiencing loss of taste or smell?: No Other Medical History Have you received the Flu Vaccine for this season: No Have you received the Pneumonia Vaccine: No Review of Systems Review of Systems Review of systems (narrative): 14 point review of systems performed, pertinent positives and negatives as per [facility] Meds Home Medications and Allergies Home Medications ?Medication ?Instructions ?Recorded ?Confirmed ?Type omeprazole 40 mg capsule,delayed 40 mg PO DAILY 10/15/21 06/25/24 History release metoprolol succinate 25 mg 25 mg PO DAILY #90 tabs 09/28/23 06/25/24 Rx tablet,extended release 24 hr insulin glargine U-300 conc 300 36 unit SQ HS 01/16/24 06/25/24 History unit/mL (3 mL) subcutaneous pen (Toujeo Max U-300 SoloStar) blood sugar diagnostic (Accu-Chek 01/17/24 06/25/24 History Guide test strips) lancets (Accu-Chek Softclix 01/17/24 06/25/24 History Lancets) ranolazine 500 mg tablet,extended 500 mg PO BID 30 days #60 tabs 01/17/24 06/25/24 Rx release,12 hr duloxetine 30 mg capsule,delayed 30 mg PO DAILY 05/17/24 06/25/24 History release midodrine 5 mg tablet 5 mg PO TID 05/17/24 06/25/24 History nitroglycerin 0.4 mg sublingual 0.4 mg sublingual Q5MINP PRN Chest 05/17/24 06/25/24 History tablet Pain pregabalin 25 mg capsule 25 mg PO BID 05/17/24 06/25/24 History rosuvastatin 40 mg tablet 40 mg PO HS 05/17/24 06/25/24 History hydrocodone 5 mg-acetaminophen 325 1 tab PO Q6H PRN pain #12 tabs 05/18/24 06/25/24 Rx mg tablet tamsulosin 0.4 mg capsule 0.4 mg PO HS 30 days #30 caps 05/18/24 06/25/24 Rx New Prescriptions to Start Prescriptions: Allergies Allergy/AdvReac Type Severity Reaction Status Date / Time bee venom protein (honey bee) Allergy Anaphylaxis Verified 06/11/24 17:45 gabapentin Allergy Anaphylaxis Verified 06/11/24 17:45 Exam Data for Last 24 hours Vital signs and Labs for Last 24 Hours: Temp Pulse Resp BP Pulse Ox O2 Del Method 98.3 F 84 19 122/93 H 95 Room Air 06/25/24 12:23 06/25/24 14:30 06/25/24 14:30 06/25/24 14:30 06/25/24 14:30 06/25/24 12:23 Laboratory Results - last 24 hr 06/25/24 12:21: WBC 9.6, RBC 4.94, Hgb 15.6, Hct 43.4, MCV 87.9, MCH 31.6 H, MCHC 35.9 H, RDW 13.0, Plt Count 196, MPV 10.6 H, Neut % (Auto) 35.1 L, Lymph % (Auto) 54.7 H, [place] % (Auto) 6.8, Eos % (Auto) 2.7, Baso % (Auto) 0.5, Neut # (Auto) 3.4, Lymph # (Auto) 5.2 H, [place] # (Auto) 0.7, Eos # (Auto) 0.3, Baso # (Auto) 0.1, Total Counted 100, Neutrophils % (Manual) 25 L, Lymphocytes % (Manual) 63 H, Atypical Lymphs % 1.0, Monocytes % (Manual) 7, Eosinophils % (Manual) 4 H, Platelet Estimate Normal, RBC Morphology Normal, Sodium 134 L, Potassium 4.1, Chloride 103, Carbon Dioxide 23, Anion Gap 12.1, BUN 16, Creatinine 0.60 L, Estimated GFR 135, Est GFR ( Amer) 164, Glucose 408 H* , Calcium 9.5, Total Bilirubin 0.5, AST 34, ALT 40, Alkaline Phosphatase 113, Troponin I < 0.01, Total Protein 7.1, Albumin 4.5, Globulin 2.6, Albumin/Globulin Ratio 1.7 I & O for Last 24 hours: Intake & Output 06/22/24 06/23/24 06/24/24 06/25/24 23:59 23:59 23:59 23:59 Weight 97.522 kg Constitutional Constitutional: mild distress, chronically ill appearing and disheveled *Routine HEENT Exam Head: Present normocephalic Eye: Present EOMI and PERRL ENT: Present mucous membranes moist *Routine Neck Exam Neck: Present supple; Absent lymphadenopathy Routine Chest/Breast/Axilla Exam Chest wall: Present tenderness (Left pectoralis) *Routine Respiratory Exam Respiratory: Present CTA bilaterally *Routine Cardiovascular Exam Cardiovascular: Present RRR *Routine Abdominal Exam Abdominal: Present soft and normoactive bowel sounds; Absent tenderness *Routine Rectal Exam Rectal:: deferred *Routine Genitalia Exam Genitalia:: deferred *Routine Extremities Exam Extremities: Absent cyanosis, clubbing or edema *Routine Skin Exam Skin: Present intact and warm; Absent rash *Routine Neurological Exam Neurological: Present alert and oriented X3 Assessment and Plan *Assessment and plan (1) Coronary artery disease with unstable angina pectoris: Status: Acute Qualifiers: Coronary Disease-Associated Artery/Lesion type: [place] artery [place] vs. transplanted heart: [place] heart Qualified Code(s): I25.110 - Atheroscl erotic heart disease of [place] coronary artery with unstable angina pectoris Category: Medical Code(s): I25.110 - Atherosclerotic heart disease of [place] coronary artery with unstable angina pectoris (2) Superficial thrombophlebitis: Status: Acute Qualifiers: Laterality: right Superficial thrombophlebitis-Involved body area: upper extremity Qualified Code(s): I80.8 - Phlebitis and thrombophlebitis of other sites Category: Medical Code(s): I80.9 - Phlebitis and thrombophlebitis of unspecified site (3) Tobacco use: Status: Chronic Category: Social Hx Code(s): Z72.0 - Tobacco use (4) RBBB (right bundle branch block with left anterior fascicular block): Status: Acute Category: Medical Code(s): I45.2 - Bifascicular block (5) Diabetes: Status: Chronic Qualifiers: Diabetes mellitus type: type 2 Diabetes mellitus continuous churn buttermaker insulin use: without continuous churn buttermaker use Diabetes mellitus complication status: without complication Qualified Code(s): E11.9 - Type 2 diabetes mellitus without compli cations Category: Medical Code(s): E11.9 - Type 2 diabetes mellitus without complications (6) Hypertension: Status: Chronic Qualifiers: Hypertension type: primary hypertension Qualified Code(s): I10 - Essential (primary) hypertension Category: Medical Code(s): I10 - Essential (primary) hypertension (7) Hyperlipidemia: Status: Chronic Qualifiers: Hyperlipidemia type: mixed hyperlipidemia Qualified Code(s): E78.2 - Mixed hyperlipidemia Category: Medical Code(s): E78.5 - Hyperlipidemia, unspecified (8) Presence of stent in LAD coronary artery: Status: Chronic Category: Medical Code(s): Z95.5 - Presence of coronary angioplasty implant and graft Plan 63-year-old male with microvascular coronary artery disease, presents with onset of chest pain. Workup in the ER with negative troponin. CTA negative. Given persistence of pain, discussed case with ER physician and he requests admission for monitoring overnight cardiology evaluation. I agreed to admit for further care. Stable on room air. Problems addressed as follows: Unstable angina Chest pain Hypertension History of CAD -Troponins negative, no delta. Continue to monitor on telemetry - Cardiology consulted, at this point patient has previously had an echo per chart review that shows microvascular disease. Nothing amenable to stenting. Recommend monitoring overnight and optimizing medical management. - Chest CTA negative for PE or dissection per my review of imaging -Chest is tender to palpation. Will continue nitroglycerin paste as well as topical lidocaine patch - Resume home Cymbalta 30 mg daily for mood, Metoprolol succinate 25 mg daily, ranolazine 500 mg twice daily, Crestor 40 mg nightly 2A-fib with RVR -Improved with IV beta-demetri therapy, continue metoprolol succinate 25 mg daily - [id number] score of 4 (hypertension, diabetes, vascular disease, age). Recommend Eliquis 5 mg twice daily but previously had pericardial effusion while on anticoagulation, so will hold for now. Recent superficial thrombophlebitis of the right upper extremity: Aspirin therapy recommended Diabetes mellitus - Recent hemoglobin A1c 6.7 last month; continue insulin 36 units of glargine. Sliding scale insulin and fingersticks ACHS. -Glucose uncontrolled on arrival, 400 on admission. Potassium 4.1. Kidney function normal with BUN 16, creatinine 0.6. Repeat CBC, CMP, magnesium ordered for the morning. Hyperlipidemia: LDL 139 in January 2024; continue Crestor 40 mg nightly Continue diabetic diet. Full code
--- NOTE | 2024-06-25 15:38 | PC.NURSE ---
Report called to Missy YANEZ
[2024-06-25] MEDS: NITROGLYCERIN 1 GM OINTMENT TD (15:41)
[2024-06-25 15:53] LABS: Troponin I < 0.01 ng/ml (0.00-0.034)
--- NOTE | 2024-06-25 16:39 | P.CONCA_ITS ---
History of Present Illness History of Present Illness Consult date: 06/25/24 Requesting physician: Sam Quinn Consult reason: chest pain Chief complaint: chest pain Additional Medical History:: 1. Coronary disease A. Cardiac cath, 09/27/2023, mild to moderate disease of the LAD with severe disease of 1st and 2nd small to medium diagonal arteries not amenable to stenting. Mild to moderate disease of nondominant circumflex and dominant RCA relegated to medical therapy. EF 65% with LVEDP at 10 to 15 mmHg. B. Cardiac cath, 10/16/2021, ZAKIYA to RCA. Medical therapy for LAD and circumflex arteries. C. History of TX, 07/2021 with subsequent ZAKIYA to LAD and additional stent to ramus after perforation 2. Hypertension 3. Hyperlipidemia 4. Diabetes mellitus 5. BPH 6. History of A-fib/flutter A. History of brief Amio and Eliquis therapy discontinued in 2021 due to pericardial effusion 7. Bifascicular block (RBBB with LAFB) 8. COPD with tobacco use greater than 50 pack years 9. Chronic low back pain with pain stimulator in situ History of present illness: 63-year-old white male presented to the ER for chest pain with radiation to the left arm beginning approximate 3 hours prior to arrival. Patient took 2 nitro and 324 mg of aspirin before calling his neighbor and brought him to the ER for evaluation. He reports not taking his insulin for multiple days due to well- controlled sugars . He was given nitroglycerin and IV beta-demetri therapy in the ER due to an elevated heart rate in the 170s with good response bringing heart rate down into the 100 bpm range. I saw him in the ER after returning from his chest CTA which was negative for PE or aortic dissection. He continues to describe chest pain as an 8 out of 10 but his chest is tender to touch and his back as well with no rashes or blistering noted. Blood pressure remained stable throughout. No indication for urgent intervention from cardiac standpoint as his troponin initially is normal with no acute EKG changes outside of rate. He recently had a cardiac catheterization in September 2023 with no macrovascular disease. [facility] Disclaimer: The information contained in this section may have been updated after the patient was seen, as this information can be updated by other users. Medical History Leukocytosis Enlarged prostate Dizziness Angina pectoris Coronary artery disease Syncope Cystic lung, congenital History of pneumothorax Atrial fibrillation and flutter Presence of stent in LAD coronary artery Pericardial effusion without cardiac tamponade PNA (pneumonia) Diabetes GERD (gastroesophageal reflux disease) Pericarditis Angina at rest History of heart attack Hyperlipidemia Palpitations Hypertension Heart murmur Arrhythmia History of left heart catheterization (LHC) RBBB (right bundle branch block with left anterior fascicular block) Surgical History Hx of heart artery stent Previous back surgery Family History Other Family history of COPD (chronic obstructive pulmonary disease) Family history of hyperlipidemia Family history of hypertension Family history of myocardial infarction Family history of stroke Lung cancer Social History Smoking Status: Never smoker alcohol intake: former current occupational status: previously employed and disabled Travel in the last 8 weeks?: None Have you lived/traveled outside US in past 30 days?: No Contact w/someone who lives/traveled outside US past 30 days?: No Exposure to someone with infectious disease in past 14 days?: No Do you have a fever (greater than 100.4 F or 38 C)?: No Have you tested positive for COVID-19?: No Exposed to someone with COVID-19 in past 14 days?: No Do you have a sore throat?: No Do you have a cough?: No Do you have any weakness?: No Do you have any diarrhea?: No Are you experiencing any unusual bleeding?: No Do you have any muscle aches/pain?: No Do you have any abdominal pain?: No Are you experiencing loss of taste or smell?: No Review of Systems Review of Systems Review of systems:: pertinent systems reviewed and negative unless documented below *Cardiovascular Cardiovascular: Reports chest pain and Denies dyspnea *Respiratory Respiratory: Denies cough and Denies dyspnea *Gastrointestinal Gastrointestinal: Denies abdominal pain Exam Data for Last 24 hours Vital signs and Labs for Last 24 Hours: Temp Pulse Resp BP Pulse Ox O2 Del Method 98.3 F 92 H 24 137/98 H 97 Room Air 06/25/24 12:23 06/25/24 16:00 06/25/24 16:00 06/25/24 16:00 06/25/24 16:00 06/25/24 16:00 Laboratory Results - last 24 hr 06/25/24 12:21: WBC 9.6, RBC 4.94, Hgb 15.6, Hct 43.4, MCV 87.9, MCH 31.6 H, MCHC 35.9 H, RDW 13.0, Plt Count 196, MPV 10.6 H, Neut % (Auto) 35.1 L, Lymph % (Auto) 54.7 H, [place] % (Auto) 6.8, Eos % (Auto) 2.7, Baso % (Auto) 0.5, Neut # (Auto) 3.4, Lymph # (Auto) 5.2 H, [place] # (Auto) 0.7, Eos # (Auto) 0.3, Baso # (Auto) 0.1, Total Counted 100, Neutrophils % (Manual) 25 L, Lymphocytes % (Manual) 63 H, Atypical Lymphs % 1.0, Monocytes % (Manual) 7, Eosinophils % (Manual) 4 H, Platelet Estimate Normal, RBC Morphology Normal, Sodium 134 L, Potassium 4.1, Chloride 103, Carbon Dioxide 23, Anion Gap 12.1, BUN 16, Creatinine 0.60 L, Estimated GFR 135, Est GFR ( Amer) 164, Glucose 408 H* , Calcium 9.5, Total Bilirubin 0.5, AST 34, ALT 40, Alkaline Phosphatase 113, Troponin I < 0.01, Total Protein 7.1, Albumin 4.5, Globulin 2.6, Albumin/Glob ulin Ratio 1.7 06/25/24 : Troponin I < 0.01 I & O for Last 24 hours: Intake & Output 06/23/24 06/24/24 06/25/24 06/26/24 11:59 11:59 11:59 11:59 Weight 215 lb Constitutional Constitutional: mild distress and moderate distress *Routine Respiratory Exam Respiratory: Present decreased breath sounds and CTA bilaterally; Absent wheezes *Routine Cardiovascular Exam Cardiovascular: Present tachycardia and irregularly irregular *Routine Extremities Exam Extremities: Absent edema *Routine Neurological Exam Neurological: Present alert, oriented X3 and CN II-XII intact Meds Home Medications and Allergies Home Medications ?Medication ?Instructions ?Recorded ?Confirmed ?Type omeprazole 40 mg capsule,delayed 40 mg PO DAILY 10/15/21 06/11/24 History release metoprolol succinate 25 mg 25 mg PO DAILY #90 tabs 09/28/23 06/11/24 Rx tablet,extended release 24 hr insulin glargine U-300 conc 300 36 unit SQ HS 01/16/24 06/11/24 History unit/mL (3 mL) subcutaneous pen (Toujeo Max U-300 SoloStar) blood sugar diagnostic (Accu-Chek 01/17/24 06/11/24 History Guide test strips) lancets (Accu-Chek Softclix 01/17/24 06/11/24 History Lancets) ranolazine 500 mg tablet,extended 500 mg PO BID 30 days #60 tabs 01/17/24 06/11/24 Rx release,12 hr duloxetine 30 mg capsule,delayed 30 mg PO DAILY 05/17/24 06/11/24 History release midodrine 5 mg tablet 5 mg PO TID 05/17/24 06/11/24 History nitroglycerin 0.4 mg sublingual 0.4 mg sublingual Q5MINP PRN Chest 05/17/24 06/11/24 History tablet Pain pregabalin 25 mg capsule 25 mg PO BID 05/17/24 06/11/24 History rosuvastatin 40 mg tablet 40 mg PO HS 05/17/24 06/11/24 History hydrocodone 5 mg-acetaminophen 325 1 tab PO Q6H PRN pain #12 tabs 05/18/24 06/11/24 Rx mg tablet tamsulosin 0.4 mg capsule 0.4 mg PO HS 30 days #30 caps 05/18/24 06/11/24 Rx New Prescriptions to Start Prescriptions: Allergies Allergy/AdvReac Type Severity Reaction Status Date / Time bee venom protein (honey bee) Allergy Anaphylaxis Verified 06/11/24 17:45 gabapentin Allergy Anaphylaxis Verified 06/11/24 17:45 Assessment and Plan *Assessment and plan (1) Coronary artery disease with unstable angina pectoris: Status: Acute Qualifiers: Coronary Disease-Associated Artery/Lesion type: [place] artery [place] vs. transplanted heart: [place] heart Qualified Code(s): I25.110 - Atherosclerotic heart disease of [place] coronary artery with unstable angina pectoris Category: Medical Code(s): I25.110 - Atherosclerotic heart disease of [place] coronary artery with unstable angina pectoris (2) Superficial thrombophlebitis: Status: Acute Qualifiers: Laterality: right Superficial thrombophlebitis-Involved body area: upper extremity Qualified Code(s): I80.8 - Phlebitis and thrombophlebitis of other sites Category: Medical Code(s): I80.9 - Phlebitis and thrombophlebitis of unspecified site (3) Tobacco use: Status: Chronic Category: Social Hx Code(s): Z72.0 - Tobacco use (4) RBBB (right bundle branch block with left anterior fascicular block): Status: Acute Category: Medical Code(s): I45.2 - Bifascicular block (5) Diabetes: Status: Chronic Qualifiers: Diabetes mellitus type: type 2 Diabetes mellitus long term care social worker insulin use: without long term care social worker use Diabetes mellitus complication status: without complication Qualified Code(s): E11.9 - Type 2 diabetes mellitus without complications Category: Medical Code(s): E11.9 - Type 2 diabetes mellitus without complications (6) Hypertension: Status: Chronic Qualifiers: Hypertension type: primary hypertension Qualified Code(s): I10 - Essential (primary) hypertension Category: Medical Code(s): I10 - Essential (primary) hypertension (7) Hyperlipidemia: Status: Chronic Qualifiers: Hyperlipidemia type: mixed hyperlipidemia Qualified Code(s): E78.2 - Mixed hyperlipidemia Category: Medical Code(s): E78.5 - Hyperlipidemia, unspecified (8) Presence of stent in LAD coronary artery: Status: Chronic Category: Medical Code(s): Z95.5 - Presence of coronary angioplasty implant and graft Plan 1. Chest pain -Normal troponin, continue to follow -Chest CTA negative for PE or dissection -Mild improvement with nitroglycerin -Resume home dose of ranolazine and metoprolol -Tender chest wall and back to palpation 2. A-fib with RVR -Improved with IV beta-demetri therapy -Resume metoprolol succinate 25 mg daily -[id number] score of 4 (hypertension, diabetes, vascular disease, age). Recommend Eliquis 5 mg twice daily but previously had pericardial effusion while on anticoagulation, so will hold for now. 3. Recent superficial thrombophlebitis of the right upper extremity -Aspirin therapy recommended 4. Diabetes mellitus -Recent hemoglobin A1c 6.7 last month -Defer to hospitalist 5. Hypertension -Resume metoprolol 6. Hyperlipidemia -LDL 139 in January 2024 -Question compliance with Crestor 7. CAD with prior coronary stenting -Recent left heart cath, 09/2023, continue medical therapy with no significant macrovascular disease 8. History of orthostatic hypotension for which she is on midodrine -Continue about follow blood pressure 9. Moderate aortic insufficiency with aortic root measuring 4.4 cm on echo, 01/17/2024 10. Question medication compliance Resume home medications of metoprolol and ranolazine for CAD and chest pain Continue Crestor for hyperlipidemia Continue to trend troponin Patient is on midodrine for history of orthostatic hypotension No plans for echo or cardiac cath at this time
--- NOTE | 2024-06-25 17:17 | PC.NURSE ---
arrived by w/c from ED
[2024-06-25] MEDS: humaLOG 100 UNITS/ML 10ML VIAL (SSI) SUBCUT ×2 (18:00→21:08)
[2024-06-25] MEDS: METOPROLOL SUCCINATE XL 25MG TABLET 25 MG PO (18:00)
[2024-06-25 18:11] LABS: POC Glucose,Bedside 278 (70-110)
--- NOTE | 2024-06-25 18:18 | PC.NURSE ---
ASKE DPT IF HE COULD HAVE SOMEONE BRING IN HIS HOME MEDS DUE TO BEING MEDICARE OBS. PT STATED THAT HE WAS NOT ABLE TO HAVE ANYONE BRING HIS MEDS.
[2024-06-25] MEDS: LIDOCAINE 5% TRANSDERMAL PATCH 1 EACH TD (18:27)
[2024-06-25] MEDS: KETOROLAC 30MG/ML VIAL 30 MG IV (18:56)
[2024-06-25 20:34] LABS: Troponin I < 0.01 ng/ml (0.00-0.034)
[2024-06-25 20:39] LABS: POC Glucose,Bedside 292 (70-110)
[2024-06-25] MEDS: INSULIN GLARGINE 100 UNITS/ML 3ML FLEXPEN 25 UNIT SUBCUT (21:08)
[2024-06-25] MEDS: HYDROCODONE/APAP 5/325 MG TABLET 1 TAB PO (21:09)
[2024-06-26] VITALS: BP 110/72; PULSE 100; PULSE 81; RESP 13; TEMP 36.9; O2SAT 97
--- NOTE | 2024-06-26 02:54 | PC.NURSE ---
patient on tele - rotating between a flutter, a fib, and NSR.
[2024-06-26 04:00] VITALS: BP 120/79; PULSE 70; PULSE 72; RESP 18; TEMP 36.4; O2SAT 96; BMI 28.8
[2024-06-26] MEDS: humaLOG 100 UNITS/ML 10ML VIAL (SSI) SUBCUT (05:39)
[2024-06-26 05:41] LABS: POC Glucose,Bedside 171 (70-110)
[2024-06-26] MEDS: diphenhydrAMINE 50MG/ML VIAL 12.5 MG IV (05:47)
[2024-06-26] MEDS: BUTALB/ACETAMINOPHEN/CAFFEINE 50MG/325MG/40MG TAB 1 EACH PO (05:47)
[2024-06-26 06:45] LABS: Basophils # 0.1 K/mm3 (0-0.2); Basophils % 0.7 % (0.1-2.0); Eosinophils # 0.4 Kmm3 (0.0-0.4); Eosinophils % 3.8 % (0.1-12.0); Hematocrit 38.5 % (42.0-52.0); Immature Granulocytes # 0.03 10^3uL; Immature Granulocytes % 0.3 %; Lymphocytes # 5.9 K/mm3 (0.7-4.5); Lymphocytes % 57.1 % (10-50); Mean Corpuscular HGB Conc 34.8 g/dL (31.8-35.4); Mean Corpuscular Hemoglobin 30.9 pg (27.0-31.2); Mean Corpuscular Volume 88.7 fl (80-94); Mean Platelet Volume 11.1 fl (7.4-10.4); Monocytes # 0.7 K/mm3 (0.1-1.0); Monocytes % 6.5 % (1.7-9.3); Neutrophils # 3.3 K/mm3 (1.8-7.8); Neutrophils % 31.6 % (37.0-80.0); Nucleated Red Blood Cells # 0 10^3/uL; Nucleated Red Blood Cells % 0 %; Platelet Count 199 K/mm3 (142-424); Red Blood Count 4.34 M/mm3 (4.60-6.20); Red Cell Distribution Width 13.1 % (11.5-17.5); Red Cell Distribution Width-SD 42.8 fL; White Blood Count 10.3 K/mm3 (4.8-10.8)
[2024-06-26 07:14] LABS: Alanine Aminotransferase 32 U/L (12-78); Albumin Level 3.6 g/dl (3.5-5.0); Albumin/Globulin Ratio 1.5 (1.1-1.8); Alkaline Phosphatase 72 U/L (38-126); Anion Gap 6.3 mEq/L (5-15); Aspartate Amino Transferase 35 U/L (17-59); Bilirubin,Total 0.5 mg/dl (0.2-1.3); Blood Urea Nitrogen 21 mg/dl (9-20); Calcium 8.5 mg/dl (8.4-10.2); Carbon Dioxide 27 mmol/L (22.0-30.0); Chloride 106 mmol/L (98-107); Creatinine Clearance Estimated 101 mL/min (50-200); Estimated Glomerular Filt Rate 113 ml/min (>60); GFR (African American) 137 ML/MIN (>60); Globulin 2.4 g/dL (1.3-3.2); Glucose 159 mg/dl (74-100); Magnesium 1.3 mg/dl (1.6-2.3); Potassium 4.3 mmoL/L (3.5-5.1); Sodium 135 mmol/L (136-145)
[2024-06-26 07:16] LABS: Hemoglobin 13.5 g/dL (14.1-18.0)
[2024-06-26 07:17] LABS: MANUAL DIFFERENTIAL MANUAL DIFFERENTIAL (MANUAL DIFF)
[2024-06-26 08:00] VITALS: BP 109/67; PULSE 75; RESP 20; TEMP 36.8; O2SAT 95
[2024-06-26 08:35] LABS: Eosinophils % 3 % (0-3); Lymphocytes % 68 % (10-50); Monocytes % 7 % (2-9); Neutrophils % 22 % (42-76); Platelet Estimate Normal; RBC Morphology Normal; Total Cells Counted 100
--- NOTE | 2024-06-26 09:41 | P.PN_ITS ---
Subjective Subjective Date: 06/26/24 Time: 09:41 Principal diagnosis: back and chest pain Interval history: 63-year-old white male in bed in pain with chronic movement/adjustment to try to get comfortable. Patient has a spinal stimulator in place but has it turned down due to her telemetry and possible interference. Troponins have her main normal overnight. Blood pressure and heart rate are well-controlled on home medications. No plans for further evaluation from a cardiac standpoint. Will discontinue telemetry to allow him to increase his spinal stimulator output Exam Data for Last 24 hours Vital signs and Labs for Last 24 Hours: Temp Pulse Resp BP Pulse Ox O2 Del Method 98.3 F 75 20 109/67 L 95 Room Air 06/26/24 08:00 06/26/24 08:00 06/26/24 08:00 06/26/24 08:00 06/26/24 08:00 06/26/24 08:00 Laboratory Results - last 24 hr 06/25/24 12:21: WBC 9.6, RBC 4.94, Hgb 15.6, Hct 43.4, MCV 87.9, MCH 31.6 H, MCHC 35.9 H, RDW 13.0, Plt Count 196, MPV 10.6 H, Neut % (Auto) 35.1 L, Lymph % (Auto) 54.7 H, [place] % (Auto) 6.8, Eos % (Auto) 2.7, Baso % (Auto) 0.5, Neut # (Auto) 3.4, Lymph # (Auto) 5.2 H, [place] # (Auto) 0.7, Eos # (Auto) 0.3, Baso # (Auto) 0.1, Total Counted 100, Neutrophils % (Manual) 25 L, Lymphocytes % (Manual) 63 H, Atypical Lymphs % 1.0, Monocytes % (Manual) 7, Eosinophils % (Manual) 4 H, Platelet Estimate Normal, RBC Morphology Normal, Sodium 134 L, Potassium 4.1, Chloride 103, Carbon Dioxide 23, Anion Gap 12.1, BUN 16, Creatinine 0.60 L, Estimated GFR 135, Est GFR ( Amer) 164, Glucose 408 H* , Calcium 9.5, Total Bilirubin 0.5, AST 34, ALT 40, Alkaline Phosphatase 113, Troponin I < 0.01, Total Protein 7.1, Albumin 4.5, Globulin 2.6, Albumin/Globulin Ratio 1.7 06/25/24 17:43: POC Glucose 278 H 06/25/24 18:46: Troponin I < 0.01 06/25/24 20:30: POC Glucose 292 H 06/25/24 : Troponin I < 0.01 06/26/24 05:22: WBC 10.3, RBC 4.34 L, Hgb 13.5 L D, Hct 38.5 L, MCV 88.7, MCH 30.9, MCHC 34.8, RDW 13.1, Plt Count 199, MPV 11.1 H, Neut % (Auto) 31.6 L, Lymph % (Auto) 57.1 H, [place] % (Auto) 6.5, Eos % (Auto) 3.8, Baso % (Auto) 0.7, Neut # (Auto) 3.3, Lymph # (Auto) 5.9 H, [place] # (Auto) 0.7, Eos # (Auto) 0.4, Baso # (Auto) 0.1, Total Counted 100, Neutrophils % (Manual) 22 L, Lymphocytes % (Manual) 68 H, Monocytes % (Manual) 7, Eosinophils % (Manual) 3, Platelet Estimate Normal, RBC Morphology Normal, Sodium 135 L, Potassium 4.3, Chloride 106, Carbon Dioxide 27, Anion Gap 6.3, BUN 21 H D, Creatinine 0.70, Estimated Creat Clear 101, Estimated GFR 113, Est GFR ( Amer) 137, Glucose 159 H D, POC Glucose 171 H, Calcium 8.5, Magnesium 1.3 L, Total Bilirubin 0.5, AST 35, ALT 32, Alkaline Phosphatase 72, Total Protein 6.0 L, Albumin 3.6 D, Globulin 2.4, Albumin/Globulin Ratio 1.5 I & O for Last 24 hours: Intake & Output 06/23/24 06/24/24 06/25/24 06/26/24 11:59 11:59 11:59 11:59 Intake Total 1200 / 1200 Output Total 1025 / 1025 Balance 175 / 175 Weight 213 lb 4 oz Constitutional Constitutional: mild distress and moderate distress *Routine Respiratory Exam Respiratory: Present CTA bilaterally *Routine Cardiovascular Exam Cardiovascular: Present RRR Progress Note: A&P Assessment and plan (1) Coronary artery disease with unstable angina pectoris: Status: Acute (2) Superficial thrombophlebitis: Status: Acute (3) Tobacco use: Status: Chronic (4) RBBB (right bundle branch block with left anterior fascicular block): Status: Acute (5) Diabetes: Status: Chronic (6) Hypertension: Status: Chronic (7) Hyperlipidemia: Status: Chronic (8) Presence of stent in LAD coronary artery: Status: Chronic Assessment and Plan Assessment and Plan for All Diagnoses:: 1. Chest pain, felt to be noncardiac -Normal troponins -Chest CTA negative for PE or dissection -Mild improvement with nitroglycerin -continue home dose of ranolazine and metoprolol -Tender chest wall and back to palpation -No further evaluation from cardiac standpoint 2. A-fib with RVR -Improved with IV beta-demetri therapy -Resume metoprolol succinate 25 mg daily -[id number] score of 4 (hypertension, diabetes, vascular disease, age). Recommend Eliquis 5 mg twice daily but previously had pericardial effusion while on anticoagulation, so will hold for now. -Remains in sinus rhythm on home dose of metoprolol therapy. No anticoagulation at this time 3. Recent superficial thrombophlebitis of the right upper extremity -Aspirin therapy recommended 4. Diabetes mellitus -Recent hemoglobin A1c 6.7 last month -Defer to hospitalist 5. Hypertension - continue metoprolol 6. Hyperlipidemia -LDL 139 in January 2024 -Continue Crestor 7. CAD with prior coronary stenting -Recent left heart cath, 09/2023, continue medical therapy with no significant macrovascular disease 8. History of orthostatic hypotension for which he is on midodrine -Continue to follow blood pressure 9. Moderate aortic insufficiency with aortic root measuring 4.4 cm on echo, 01/17/2024 10. Question medication compliance Discontinue telemetry to allow patient to increase his output of spinal stimulation from his device No further cardiac testing at this time. Chest pain seems to be related to chronic back pain/musculoskeletal issues. Follow-up in our office in 2 to 4 weeks. Home medication recommendations: Resume metoprolol succinate 25 mg daily Ranolazine 500 mg twice daily Rosuvastatin 40 mg daily
[2024-06-26 09:57] LABS: Chol/HDL Ratio 8.3 (1-3.5); Cholesterol 208 mg/dl (140-200); HDL Cholesterol 25 mg/dl (40-60); Triglycerides 346 mg/dl (30-150); VLDL Cholesterol 69 mg/dL (0-40)
[2024-06-26 10:07] LABS: Direct LDL Cholesterol 107.24 mg/dL (100-129)
[2024-06-26 12:00] VITALS: BP 128/80; PULSE 91; RESP 20; TEMP 36.7; O2SAT 95
--- NOTE | 2024-06-26 12:55 | P.DS_ITS ---
General Admission date:: 06/25/24 HPI HPI HPI: Mr. Martin is a 63-year-old male with history of CAD, hypertension, hyperlipidemia, BPH, diabetes. He presented to the ER with complaint of chest pain. Reports acute onset that radiates to his left arm and chest. Began a couple hours before coming to the ER. Pain somewhat reproducible on exam. Took 2 nitro and 324 mg aspirin at home. Patient reports history of RI s/p 2 stents. Patient does not take blood thinners anymore. Patient has been told that he has an irregular rhythm. Glucose was running normal so he stopped taking his insulin over the past several days. Elevated at 400 on arrival. Labs obtained relatively unremarkable aside from hyperglycemia. Initial troponin negative. Given severity of pain, CT of the chest obtained, negative for dissection. Medicine consulted for admission and further management of suspected unstable angina. Cardiology consulted to assist with care. On arrival to the floor, he stable on room air. No nausea or vomiting. Pain somewhat better. Denies any trauma or strain. Hospital Course Hospital Course Hospital Course: Tashi Martin is a 63-year-old male with microvascular coronary artery disease, presents with onset of chest pain. Workup in the ER with negative troponin. CTA negative. Given persistence of pain, discussed case with ER physician and he requests admission for monitoring overnight cardiology evaluation. Unstable angina Chest pain Hypertension History of CAD - Troponins negative, no delta. EKG without acute ischemic changes. - Cardiology consulted, at this point patient has previously had an echo per chart review that shows microvascular disease. Nothing amenable to stenting. Recommended monitoring overnight and optimizing medical management. - Chest CTA negative for PE or dissection. - Continue home Cymbalta 30 mg daily for mood, Metoprolol succinate 25 mg daily, ranolazine 500 mg twice daily, Crestor 40 mg nightly. ? Will follow-up with cardiology within 2 weeks. A-fib with RVR - Improved with IV beta-demetri therapy, continue metoprolol succinate 25 mg daily - [id number] score of 4 (hypertension, diabetes, vascular disease, age). Recommend Eliquis 5 mg twice daily but previously had pericardial effusion while on anticoagulation, so will hold for now. Recent superficial thrombophlebitis of the right upper extremity: Aspirin therapy recommended Diabetes mellitus - Recent hemoglobin A1c 6.7 last month; continue insulin 36 units of glargine. Hyperlipidemia: LDL 139 in January 2024; continue Crestor 40 mg nightly Exam Data for Last 24 hours Vital signs and Labs for Last 24 Hours: Temp Pulse Resp BP Pulse Ox O2 Del Method 98.3 F 75 20 109/67 L 95 Room Air 06/26/24 08:00 06/26/24 08:00 06/26/24 08:00 06/26/24 08:00 06/26/24 08:00 06/26/24 08:00 Laboratory Results - last 24 hr 06/25/24 12:21: Total Counted 100, Neutrophils % (Manual) 25 L, Lymphocytes % (Manual) 63 H, Atypical Lymphs % 1.0, Monocytes % (Manual) 7, Eosinophils % (Manual) 4 H, Platelet Estimate Normal, RBC Morphology Normal, Troponin I < 0.01 06/25/24 17:43: POC Glucose 278 H 06/25/24 18:46: Troponin I < 0.01 06/25/24 20:30: POC Glucose 292 H 06/25/24 : Troponin I < 0.01 06/26/24 05:22: WBC 10.3, RBC 4.34 L, Hgb 13.5 L D, Hct 38.5 L, MCV 88.7, MCH 30.9, MCHC 34.8, RDW 13.1, Plt Count 199, MPV 11.1 H, Neut % (Auto) 31.6 L, Lymph % (Auto) 57.1 H, [place] % (Auto) 6.5, Eos % (Auto) 3.8, Baso % (Auto) 0.7, Neut # (Auto) 3.3, Lymph # (Auto) 5.9 H, [place] # (Auto) 0.7, Eos # (Auto) 0.4, Baso # (Auto) 0.1, Total Counted 100, Neutrophils % (Manual) 22 L, Lymphocytes % (Manual) 68 H, Monocytes % (Manual) 7, Eosinophils % (Manual) 3, Platelet Estimate Normal, RBC Morphology Normal, Sodium 135 L, Potassium 4.3, Chloride 106, Carbon Dioxide 27, Anion Gap 6.3, BUN 21 H D, Creatinine 0.70, Estimated Creat Clear 101, Estimated GFR 113, Est GFR ( Amer) 137, Glucose 159 H D, POC Glucose 171 H, Calcium 8.5, Magnesium 1.3 L, Total Bilirubin 0.5, AST 35, ALT 32, Alkaline Phosphatase 72, Total Protein 6.0 L, Albumin 3.6 D, Globulin 2.4, Albumin/Globulin Ratio 1.5, Triglycerides 346 H, Cholesterol 208 H, LDL Cholesterol Direct 107.24, VLDL Cholesterol 69 H, HDL Cholesterol 25 L, Cholesterol/HDL Ratio 8.3 H I & O for Last 24 hours: Intake & Output 06/23/24 06/24/24 06/25/24 06/26/24 23:59 23:59 23:59 23:59 Intake Total 360 / 360 840 / 840 Output Total 600 / 800 425 / 425 Balance -240 / -440 415 / 415 Weight 95.963 kg 96.729 kg Constitutional Constitutional: no acute distress *Routine HEENT Exam Head: Present normocephalic Eye: Present EOMI and PERRL ENT: Present mucous membranes moist *Routine Neck Exam Neck: Present supple; Absent lymphadenopathy *Routine Respiratory Exam Respiratory: Present CTA bilaterally *Routine Cardiovascular Exam Cardiovascular: Present RRR *Routine Abdominal Exam Abdominal: Present soft and normoactive bowel sounds; Absent tenderness *Routine Extremities Exam Extremities: Absent cyanosis, clubbing or edema *Routine Skin Exam Skin: Present warm; Absent rash *Routine Neurological Exam Neurological: Present alert and oriented X3 Results Data Completed and Pending Labs on day of discharge: Labs from last 24 hours 06/26/24 06/25/24 06/25/24 05:22 Unknown 20:30 WBC 10.3 RBC 4.34 L Hgb 13.5 L D Hct 38.5 L MCV 88.7 MCH 30.9 MCHC 34.8 RDW 13.1 Plt Count 199 MPV 11.1 H Neut % (Auto) 31.6 L Lymph % (Auto) 57.1 H [place] % (Auto) 6.5 Eos % (Auto) 3.8 Baso % (Auto) 0.7 Neut # (Auto) 3.3 Lymph # (Auto) 5.9 H [place] # (Auto) 0.7 Eos # (Auto) 0.4 Baso # (Auto) 0.1 Total Counted 100 Neutrophils % (Manual) 22 L Lymphocytes % (Manual) 68 H Atypical Lymphs % Monocytes % (Manual) 7 Eosinophils % (Manual) 3 Platelet Estimate Normal RBC Morphology Normal Sodium 135 L Potassium 4.3 Chloride 106 Carbon Dioxide 27 Anion Gap 6.3 BUN 21 H D Creatinine 0.70 Estimated Creat Clear 101 Estimated GFR 113 Est GFR ( Amer) 137 Glucose 159 H D POC Glucose 171 H 292 H Calcium 8.5 Magnesium 1.3 L Total Bilirubin 0.5 AST 35 ALT 32 Alkaline Phosphatase 72 Troponin I < 0.01 Total Protein 6.0 L Albumin 3.6 D Globulin 2.4 Albumin/Globulin Ratio 1.5 Triglycerides 346 H Cholesterol 208 H LDL Cholesterol Direct 107.24 VLDL Cholesterol 69 H HDL Cholesterol 25 L Cholesterol/HDL Ratio 8.3 H 06/25/24 06/25/24 06/25/24 18:46 17:43 12:21 WBC RBC Hgb Hct MCV MCH MCHC RDW Plt Count MPV Neut % (Auto) Lymph % (Auto) [place] % (Auto) Eos % (Auto) Baso % (Auto) Neut # (Auto) Lymph # (Auto) [place] # (Auto) Eos # (Auto) Baso # (Auto) Total Counted 100 Neutrophils % (Manual) 25 L Lymphocytes % (Manual) 63 H Atypical Lymphs % 1.0 Monocytes % (Manual) 7 Eosinophils % (Manual) 4 H Platelet Estimate Normal RBC Morphology Normal Sodium Potassium Chloride Carbon Dioxide Anion Gap BUN Creatinine Estimated Creat Clear Estimated GFR Est GFR ( Amer) Glucose POC Glucose 278 H Calcium Magnesium Total Bilirubin AST ALT Alkaline Phosphatase Troponin I < 0.01 < 0.01 Total Protein Albumin Globulin Albumin/Globulin Ratio Triglycerides Cholesterol LDL Cholesterol Direct VLDL Cholesterol HDL Cholesterol Cholesterol/HDL Ratio DS: Diagnosis Discharge Diagnosis (1) Coronary artery disease with unstable angina pectoris: Status: Acute Code(s): I25.110 - Atherosclerotic heart disease of [place] coronary artery with unstable angina pectoris Qualifiers: Coronary Disease-Associated Artery/Lesion type: [place] artery [place] vs. transplanted heart: [place] heart Qualified Code(s): I25.110 - A therosclerotic heart disease of [place] coronary artery with unstable angina pectoris (2) Superficial thrombophlebitis: Status: Acute Code(s): I80.9 - Phlebitis and thrombophlebitis of unspecified site Qualifiers: Laterality: right Superficial thrombophlebitis-Involved body area: upper extremity Qualified Code(s): I80.8 - Phlebitis and thrombophlebitis of other sites (3) Tobacco use: Status: Chronic Code(s): Z72.0 - Tobacco use (4) RBBB (right bundle branch block with left anterior fascicular block): Status: Acute Code(s): I45.2 - Bifascicular block (5) Diabetes: Status: Chronic Code(s): E11.9 - Type 2 diabetes mellitus without complications Qualifiers: Diabetes mellitus complication status: without complication Diabetes mellitus correction insulin use: without dedicated 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 truck driver use Diabetes mellitus type: type 2 Qualified Code(s): E11.9 - Type 2 diabetes mellitus without complications (6) Hypertension: Status: Chronic Code(s): I10 - Essential (primary) hypertension Qualifiers: Hypertension type: primary hypertension Qualified Code(s): I10 - Essential (primary) hypertension (7) Hyperlipidemia: Status: Chronic Code(s): E78.5 - Hyperlipidemia, unspecified Qualifiers: Hyperlipidemia type: mixed hyperlipidemia Qualified Code(s): E78.2 - Mixed hyperlipidemia (8) Presence of stent in LAD coronary artery: Status: Chronic Code(s): Z95.5 - Presence of coronary angioplasty implant and graft Meds Home Medications and Allergies Home Medications ?Medication ?Instructions ?Recorded ?Confirmed ?Type metoprolol succinate 25 mg 25 mg PO DAILY #90 tabs 06/26/24 Rx tablet,extended release 24 hr insulin glargine U-300 conc 300 36 unit SQ HS 01/16/24 06/25/24 History unit/mL (3 mL) subcutaneous pen (Toujeo Max U-300 SoloStar) blood sugar diagnostic (Accu-Chek 01/17/24 06/25/24 H istory Guide test strips) lancets (Accu-Chek Softclix 01/17/24 06/25/24 History Lancets) ranolazine 500 mg tablet,extended 500 mg PO BID 30 day s #60 tabs 01/17/24 06/25/24 Rx release,12 hr duloxetine 30 mg capsule,delayed 30 mg PO DAILY 06/25/24 History release midodrine 5 mg tablet 5 mg PO TID 05/17/24 5 History nitroglycerin 0.4 mg sublingual 0.4 mg sublingual Q5MI DIRECTOR OF [employer]ING PRN Chest 05/17/24 06/25/24 History tablet Pain pregabalin 25 mg capsule 25 mg PO BID 05/17/24 History rosuvastatin 40 mg tablet 40 mg PO HS 05/17/24 5 History tamsulosin 0.4 mg capsule 0.4 mg PO HS 30 days #30 cap s 05/18/24 06/25/24 Rx omeprazole 40 mg capsule,delayed 40 mg PO DAILY #30 ca ps 06/26/24 06/25/24 Rx release New Prescriptions to Start Prescriptions: Allergies Allergy/AdvReac Type Severity Reaction Status Date / Time bee venom protein (honey bee) Allergy Anaphylaxis Verified 06/11/24 17:45 gabapentin Allergy Anaphylaxis Verified 06/11/24 17:45 Discharge Plan Disposition Patient Disposition: Home, Self-Care Condition: Fair Follow up Plan Follow up with: Ean Stanford PA [Physician Major Gifts Officer, Cardiology] - 07/16/24 11:30 am Mila Lange [Primary Care Provider, Medical] - 06/29/24 1:00 pm Prescriptions/Medication Reconciliation: Continued insulin glargine U-300 conc [Toujeo Max U-300 SoloStar] 300 unit/mL (3 mL) insulin pen 36 unit SQ HS (DME) Accu-Chek Guide test strips Strip MISCELLANEOUS (DME) lancets [Accu-Chek Softclix Lancets] Misc MISCELLANEOUS ranolazine 500 mg Tablet Extended Release 12 Hr 500 mg PO BID 30 Days Qty: 60 0RF midodrine 5 mg tablet 5 mg PO TID nitroglycerin 0.4 mg tablet, sublingual 0.4 mg sublingual Q5MINP PRN (Reason: Chest Pain) rosuvastatin 40 mg tablet 40 mg PO HS duloxetine 30 mg capsule,delayed release(DR/EC) 30 mg PO DAILY pregabalin 25 mg capsule 25 mg PO BID tamsulosin 0.4 mg Capsule 0.4 mg PO HS 30 Days Qty: 30 0RF omeprazole 40 mg Capsule,Delayed Release(Dr/Ec) 40 mg PO DAILY Qty: 30 0RF Rx Instructions: Take on empty stomach daily. metoprolol succinate 25 mg Tablet Extended Release 24 Hr 25 mg PO DAILY Qty: 90 0RF Problem Reconciliation Problems Reviewed?: Yes Patient Discharge Instructions Patient Instructions: Angina, DI for Hyperglycemia -- Adult Print Language: Ukrainian Providers Primary Care Provider: Mila Lange Admit Provider: Sam Quinn Attending Provider: Sam Quinn
--- NOTE | 2024-06-28 10:43 | SW/DCPLANNER ---
Phoned patient x2. Left messages with name and call back number. Tianna Jimenez
== END 2024-06-26 14:30 | disposition home or self-care (01) ==
LOC: ER 15:19 → 2ND 15:24 → ICU 20:27 → 2ND 21:20
PROVIDERS: Physician Assistant; Admitting Provider Internal Medicine Adolescent Medicine; Emergency Provider Student in an Organized Health Care Education/Training Program; PCP Family Medicine; Visit Provider Internal Medicine Adolescent Medicine
DX: I25.110 Atherosclerotic heart disease of native coronary artery with unstable angina pectoris (principal); I80.8 Phlebitis and thrombophlebitis of other sites; I45.2 Bifascicular block; E11.9 Type 2 diabetes mellitus without complications; I10 Essential (primary) hypertension; E78.2 Mixed hyperlipidemia; I48.91 Unspecified atrial fibrillation; I25.2 Old myocardial infarction; N40.0 Benign prostatic hyperplasia without lower urinary tract symptoms; I48.92 Unspecified atrial flutter; M54.50 Low back pain, unspecified; G89.29 Other chronic pain; K21.9 Gastro-esophageal reflux disease without esophagitis; Z95.5 Presence of coronary angioplasty implant and graft; Z87.891 Personal history of nicotine dependence; Z86.79 Personal history of other diseases of the circulatory system; Z96.82 Presence of neurostimulator; Z91.030 Bee allergy status; Z88.8 Allergy status to other drugs, medicaments and biological substances; Z79.4 Long term (current) use of insulin; Z79.899 Other long term (current) drug therapy
CPT/HCPCS: 36415; 71045; 71275; 80053; 80061; 82962; 83735; 84484; 85007; 85025; 85027; 93005; 96374; 96375; 99285; G0378; J1171; J1200; J1885; Q9967

== ENCOUNTER 2024-07-21 16:03 | Emergency (ER) | payer MEDICARE, SELFPAY ==
--- OUTSIDE RECORDS SUMMARY | 2024-05-24 13:30 | XMS_ITS | Encounter Summary ---
[place] [address] Care Team Providers Care Aquatic Laborer Name Role Phone Mila Lange MD Primary Care Provider [phone] Nery Mccartney RN Unavailable Unavail able Reason for Referral * GI Procedure (Routine) - Pending Review Specialty Diagnoses / Procedures Referred By Lukas puentes Referred To Contact General Surgery Diagnoses Screening for colon cancer Mila Lange MD [address] [place] [address] Phone: tel: fax: [facility] [place] [facility] [address] [place] [address] Phone: tel: fax: Referral ID Status Reason Start Date Expiration Date V isits Requested Visits Authorized [id number] Pending Review 05/24/2024 05/24/2025 1 1 Reason for Visit * Reason Comments Hospital Follow Up 05/10-05/13 Encounter Details Date Type Department Care Team (Late st Contact Info) Description 05/24/2024 1:30 PM EDT Office Visit [facility] [address] [place] [address] Mila Lange MD [address], [place] [id number] Chronic diastolic congestive heart failure (HCC) (Primary Dx); Screening for colon cancer; Migraine without aura and with status migrainosus, not intractable; COPD, severe (HCC); Type 2 diabetes mellitus with hyperglycemia, with long-term current use of insulin (HCC); Hypertension associated with diabetes (HCC); Lumbosacral spondylosis without myelopathy; Rheumatoid arthritis, involving unspecified site, unspecified whether rheumatoid factor present (HCC); Colitis. Social History Tobacco Use Types Packs/Day Years Used Date Smoking Tobacco: Every Day Cigarettes 1.5 55.4 Started: 02/07/1969 Smokeless Tobacco: Never Tobacco Cessation:Ready to Q uit: Not Asked; Counseling Given: Not Answered Comments:Pt reports he is currently smoking 0.5ppd-02/13/19-KR Pt states he is only smoking 3-4 cigarettes a day now - 01/19/24 KN Alcohol Use Standard Drinks/Week Comments Yes 4 (1 standard drink = 0.6 oz pure alcohol) pt reports drinking 4 shots of whiskey [employer] [facility] Utilities Answer Date Recorded In the past 12 months has [employer], gas, oil, or water [employer] threatened to shut off services in your home? No 05/11/2024 Overall Financial Resource Strain (CARDIA) Answe r Date Recorded How hard is it for you to pa y for the very basics like food, housing, medical care, and heating? Not very hard 05/11/2024 PHQ-2 Answer Date Recorded PHQ-2 Total Score 0 05/11/2024 [facility] - Occupational Stress Questionnaire Answer Date Recorded Do you feel stress - tense, restless, nervous, or anxious, or unable to sleep at night because your mind is troubled all the time - these days? Not at all 05/11/2024 Exercise Vital Sign Answer Date Recorde d On average, how many days pe r week do you engage in moderate to strenuous exercise (like a brisk walk)? 0 days 05/11/2024 On average, how many minutes do you engage in exercise at this level? 0 min 05/11/2024 Hunger Vital Sign Answer Date Recorded Within the past 12 months, y ou worried that your food would run out before you got the money to buy more. Never true 05/12/19 25 Within the past 12 months, t he food you bought just didn't last and you didn't have money to get more. Never true 05/11/2024 [facility] - Transportation Answer Date Re corded In the past 12 months, has l ack of transportation kept you from medical appointments or from getting medications? No 07/2022 In the past 12 months, has l ack of transportation kept you from meetings, work, or from getting things needed for daily living? No 01/12/2023 [facility] IP Transportation Answer D ate Recorded In the past 12 months, has l ack of reliable transportation kept you from medical appointments, meetings, work or from getting things needed for daily living? No 05/11/2024 Sexually Active Control Partners Comments Yes Female Sex and Gender Information Value Date Recorded Sex Assigned at Not on file Legal Sex Male 1:07 AM EDT Gender Identity Not on file Sexual Orientation Not on file documented as of this encounter Last Filed Vital Signs Vital Sign Reading Time Taken Comments Blood Pressure 124/80 05/24/2024 1:28 PM EDT Pulse - - Temperature 36.7 C (98.1 F) 05/24/2024 1:28 PM EDT Respiratory Rate - - Oxygen Saturation - - Inhaled Oxygen Concentration - - Weight 96.6 kg (213 lb) 05/24/2024 1:28 PM EDT Height 182.9 cm (6') 05/24/2024 1:28 PM EDT Body Mass Index 28.89 05/24/2024 1:28 PM EDT documented in this encounter Functional Status * Is the person deaf or does he/she have serious difficulty hearing? Answer Date of Assessment Author No 03/16/2024 8:51 AM Jon Brink MA * Is the person blind or does he/she have serious difficulty seeing even when wearing glasses? Answer Date of Assessment Author No 03/16/2024 8:51 AM Jon Brink MA * Does this person have serious difficulty walking or climbing stairs? Answer Date of Assessment Author No 03/16/2024 8:51 AM Jon Brink MA * Does this person have difficulty dressing or bathing? Answer Date of Assessment Author No 03/16/2024 8:51 AM Jon Brink MA * Because of a physical, mental or emotional condition, does this person have difficulty doing errands alone such as visiting a doctor's office or shopping? Answer Date of Assessment Author No 03/16/2024 8:51 AM Jon Brink MA documented as of this encounter Mental Status * Because of a physical, mental or emotional condition, does this person have serious difficulty concentrating, remembering or making decisions? Answer Entry Date Author No 03/16/2024 8:51 AM Jon Brink MA documented in this encounter Progress Notes * Mila Lange MD - 05/24/2024 1:30 PM EDTAssociated Problem(s): COPD, severe (HCC) stable * Mila Lange MD - 05/24/2024 1:30 PM EDTAssociated Problem(s): Type 2 diabetes mellitus with hyperglycemia, with long-term current use of insulin (HCC) stable * Mila Lange MD - 05/24/2024 1:30 PM EDTAssociated Problem(s): Hypertension associated with diabetes (HCC) stable * Mila Lange MD - 05/24/2024 1:30 PM EDTAssociated Problem(s): Lumbosacral spondylosis without myelopathy * Mila Lange MD - 05/24/2024 1:30 PM EDTAssociated Problem(s): Chronic diastolic congestive heart failure (HCC) stable * Mila Lange MD - 05/24/2024 1:30 PM EDTAssociated Problem(s): Colitis. Patient has improved. * Mila Lange MD - 05/24/2024 1:30 PM EDT Vitals: 05/24/24 1328 BP: 124/80 Temp: 98.1 ??F (36.7 ??C) Weight: 213 lb (96.6 kg) Height: 6' (1.829 m) Body mass index is 28.89 kg/m??. SUBJECTIVE: Chief Complaint Patient presents with Hospital Follow Up 05/10-05/13 HPI: Hospital Follow-Up: Hospital/ER Follow-Up: Mr. Martin is a 63 y.o. male here for hospital follow up. He was admitted 05/10 and discharged 05/13 with a diagnosis of colitis, and kidney stones. Hospital discharge summary, most recent labs and imaging, admission notes reviewed: He is compliant with discharge medications / treatment. He is not having medication side effects. Coding Attestation I certify the following are true: 1. Communication with the patient was made within 2 business days of discharge. 2. Medical decision making of medium complexity. 3. Face to face visit within 7 days. 4. Patient has been hospitalized within the last 30 days. Code Complexity Face to face [id number] High complexity within 7 days [id number] High complexity 8-14 days 25519 Medium complexity Within 14 days Review of Systems Constitutional: Negative. HENT: Negative. Respiratory: Negative. Cardiovascular: Negative. Gastrointestinal: Negative. Genitourinary: Negative. Musculoskeletal: Positive for arthralgias. Negative for back pain. Neurological: Positive for headaches. Hematological: Negative. Psychiatric/Behavioral: Negative. OBJECTIVE: Physical Exam Vitals and nursing note reviewed. HENT: Head: Normocephalic. Cardiovascular: Rate and Rhythm: Normal rate. Heart sounds: No murmur heard. Pulmonary: Effort: Pulmonary effort is normal. Breath sounds: No wheezing. Abdominal: Palpations: Abdomen is soft. Tenderness: There is no abdominal tenderness. Musculoskeletal: General: Tenderness present. Neurological: General: No focal deficit present. Mental Status: He is alert. Psychiatric: Mood and Affect: Mood normal. Assessment & Plan Screening for colon cancer Orders: SCREENING COLONOSCOPY Migraine without aura and with status migrainosus, not intractable COPD, severe (HCC) stable Type 2 diabetes mellitus with hyperglycemia, with long-term current use of insulin (HCC) stable Hypertension associated with diabetes (HCC) stable Lumbosacral spondylosis without myelopathy Chronic diastolic congestive heart failure (HCC) stable Rheumatoid arthritis, involving unspecified site, unspecified whether rheumatoid factor present (HCC) stable Colitis. documented in this encounter Plan of Treatment Scheduled Referrals Name Type Priority Associated Diagnoses Order Schedule SCREENING COLONOSCOPY Outpatient Referral Routine Screening for colon cancer Ordered: 05/24/2024 documented as of this encounter Goals Goal Patient Goal Type Associated Problems Recent Progress Patient-Stated? Author Blood Pressure < 140/90 Blood Pressure 124/80(2024 1:28 PM EDT) No Nery Mccartney RN BMI (Calculated) < 30 General 28.9(05/25/19 1:28 PM EDT) No Mila Lange MD Eat better, exercise, reach an ideal body weight General No Nyasia Ruelas RMA Patient will complete office visit with [facility] as scheduled on 03/28/24. General Not on track( 3:14 PM EST) No Nery Mccartney RN Patient will limit daily intake of sodium to no more than 2000 mg per day by next visit on 04/06/24. General On track( 3:18 PM EST) Nery Waters RN Patient will limit daily fluid intake to no more than 2 liters per day by next follow up visit on 04/06/24 General Not on track( 3:19 PM EST) No Nery Mccartney RN Stay Tobacco Free Lifestyle Not on track( 12:04 PM EST) No Nyasia Ruelas RMA LDL CALC < 100 Result Component 95(04/10/2024 1:37 PM EST) No Nery Mccartney RN HEMOGLOBIN A1C < 7.0 Result Component 7.2( 1:37 PM EST) No Mila Lange MD documented as of this encounter Visit Diagnoses Diagnosis Chronic diastolic congestive heart failure (HCC)- Primary Chronic diastolic heart failure Screening for colon cancer Special screening for malignant neoplasms, colon Migraine without aura and with status migrainosus, not intractable Migraine without aura, without mention of intractable migraine with status migrainosus COPD, severe (HCC) Chronic airway obstruction, not elsewhere classified Type 2 diabetes mellitus with hyperglycemia, with long-term current use of insulin (HCC) Hypertension associated with diabetes (HCC) Type II or unspecified type diabetes mellitus with other specified manifestations, not stated as uncontrolled Lumbosacral spondylosis without myelopathy Rheumatoid arthritis, involving unspecified site, unspecified whether rheumatoid factor present (HCC) Colitis. Other and unspecified noninfectious gastroenteritis and colitis documented in this encounter Historical Medications * This list may reflect changes made after this encounter. amoxicillin-clavu lanate (AUGMENTIN) 500-125 mg Oral Tablet TAKE ONE TABLET BY MOUTH THREE TIMES DAILY FOR 7 DAYS -- FINISH ALL MEDICINE -- 05/18/2024 added in this encounter Additional Health Concerns Assessment Noted Time A fall risk assessment has been complete d for the patient 10/06/2023 2:50 PM EDT documented as of this encounter Care Teams Aquatic Laborer Relationship Specialty Start Date End Date Mila Lange MD [address] [place] [address] PCP - General Family Medicine 06/22/11 Nery Mccartney, RN Weblogic Developer Registered Nurse 03/23/24 documented as of this encounter
[2024-07-21] VITALS (13 sets, daily range): BP systolic 114–135; BP diastolic 63–101; PULSE 72–112; RESP 14–21; TEMP 36.6–36.9; O2SAT 93–99; BMI 28.5
--- NOTE | 2024-07-21 16:05 | ECG_ITS ---
APPROVED REPORT Exam: Resting ECG HR:113 bpm ECG Measurements Heart Rate 113 AXES NH 161 P 21 QRSd 130 QRS -76 QT 350 T 67 QTc 417 Conclusion SINUS TACHYCARDIA WITH FREQUENT SUPRAVENTRICULAR PREMATURE COMPLEXES RIGHT BUNDLE BRANCH BLOCK [120+ ms QRS DURATION, UPRIGHT V1, 40+ ms S IN I/aVL/V4/V5/V6] LEFT ANTERIOR FASCICULAR BLOCK [QRS AXIS <= -45, QR IN I, RS IN II] MODERATE VOLTAGE CRITERIA FOR LVH, CONSIDER NORMAL VARIANT [MEETS CRITERIA IN ONE OF: R(aVL), S(V1), R(V5), R(V5/V6)+S(V1)] POSSIBLE SEPTAL MYOCARDIAL INFARCTION , OF INDETERMINATE AGE [30 ms Q WAVE IN V1/V2] ABNORMAL ECG Electronically signed by : VICTORIANO MONZON, 07/23/2024 07:03:53
--- NOTE | 2024-07-21 16:07 | [facility].EDGENADL ---
Discharge Plan Disposition Patient Disposition: Home, Self-Care Condition: Good Prescriptions Prescriptions: No Action insulin glargine U-300 conc [Toujeo Max U-300 SoloStar] 300 unit/mL (3 mL) insulin pen 36 unit SQ HS (DME) Accu-Chek Guide test strips Strip MISCELLANEOUS (DME) lancets [Accu-Chek Softclix Lancets] Misc MISCELLANEOUS ranolazine 500 mg Tablet Extended Release 12 Hr 500 mg PO BID 30 Days Qty: 60 0RF midodrine 5 mg tablet 5 mg PO TID nitroglycerin 0.4 mg tablet, sublingual 0.4 mg sublingual Q5MINP PRN (Reason: Chest Pain) rosuvastatin 40 mg tablet 40 mg PO HS duloxetine 30 mg capsule,delayed release(DR/EC) 30 mg PO DAILY pregabalin 25 mg capsule 25 mg PO BID tamsulosin 0.4 mg Capsule 0.4 mg PO HS 30 Days Qty: 30 0RF omeprazole 40 mg Capsule,Delayed Release(Dr/Ec) 40 mg PO DAILY Qty: 30 0RF Rx Instructions: Take on empty stomach daily. metoprolol succinate 25 mg Tablet Extended Release 24 Hr 25 mg PO DAILY Qty: 90 0RF Referrals Follow up/Referrals: Christian Chen MD [Physician, Pulmonology] - See instructions Mila Lange [Primary Care Provider, Medical] - See instructions Activity Restrictions/Add. Instructions Additional Instructions/Restrictions: I am referring you to pulmonology for your lung cysts. Please call on Tuesday to make your appointment. Please schedule follow-up with cardiology. Please see your PCP next week for recheck. If you have any continued new or worsening signs or symptoms follow-up sooner with your PCP return to the ER as needed Clinical Impressions Clinical Impression: Lung cyst Chest pain Qualifiers: Chest pain type: unspecified Qualified Code(s): R07.9 - Chest pain, unspecified Print Language Print Language: [place] Discharge ED Provider: Harvey Mulligan General Adult HPI <ZI Naranjo - Last Filed: 07/21/24 19:48> General Chief complaint: Chest Pain Stated complaint: cp Time Seen by Provider: 07/21/24 16:07 History of Present Illness HPI narrative: Patient presents for evaluation of chest pain. Patient states that he has been having intermittent chest pain over the last week. Today's episode began around noon and patient felt weak and short of breath. Patient does have a known history of cardiovascular disease with previous stents and does have nitroglycerin for angina but has not taking any. Denies any fever chills hemoptysis hematochezia melena nausea vomiting diarrhea. Patient does report that he has only peed twice despite drinking a half a gallon of water. He denies any dysuria or abdominal pain however or burning with urination Related Data Home Medications ?Medication ?Instructions ?Recorded ?Confirmed insulin glargine U-300 conc 300 36 unit SQ HS 01/16/24 06/25/24 unit/mL (3 mL) subcutaneous pen (Toujeo Max U-300 SoloStar) blood sugar diagnostic (Accu-Chek 01/17/24 06/25/24 Guide test strips) lancets (Accu-Chek Softclix 01/17/24 06/25/24 Lancets) duloxetine 30 mg capsule,delayed 30 mg PO DAILY 05/17/24 06/25/24 release midodrine 5 mg tablet 5 mg PO TID 05/17/24 06/26/24 nitroglycerin 0.4 mg sublingual 0.4 mg sublingual Q5MINP PRN Chest 05/17/24 06/25/24 tablet Pain pregabalin 25 mg capsule 25 mg PO BID 05/17/24 06/25/24 rosuvastatin 40 mg tablet 40 mg PO HS 05/17/24 06/25/24 Previous Rx's ?Medication ?Instructions ?Recorded metoprolol succinate 25 mg 25 mg PO DAILY #90 tabs 09/28/23 tablet,extended release 24 hr ranolazine 500 mg tablet,extended 500 mg PO BID 30 days #60 tabs 01/17/24 release,12 hr tamsulosin 0.4 mg capsule 0.4 mg PO HS 30 days #30 caps 05/18/24 omeprazole 40 mg capsule,delayed 40 mg PO DAILY #30 caps 06/26/24 release Allergies Allergy/AdvReac Type Severity Reaction Status Date / Time bee venom protein (honey bee) Allergy Anaphylaxis Verified 06/11/24 17:45 gabapentin Allergy Anaphylaxis Verified 06/11/24 17:45 [facility] <ZI Naranjo - Last Filed: 07/21/24 19:48> [facility] Disclaimer: The information contained in this section may have been updated after the patient was seen, as this information can be updated by other users. Medical History Leukocytosis Enlarged prostate Dizziness Angina pectoris Coronary artery disease Syncope Cystic lung, congenital History of pneumothorax Atrial fibrillation and flutter Presence of stent in LAD coronary artery Pericardial effusion without cardiac tamponade PNA (pneumonia) Diabetes GERD (gastroesophageal reflux disease) Pericarditis Angina at rest History of heart attack Hyperlipidemia Palpitations Hypertension Heart murmur Arrhythmia History of left heart catheterization (LHC) RBBB (right bundle branch block with left anterior fascicular block) Surgical History Hx of heart artery stent Previous back surgery Family History Other Family history of COPD (chronic obstructive pulmonary disease) Family history of hyperlipidemia Family history of hypertension Family history of myocardial infarction Family history of stroke Lung cancer Social History Smoking Status: Current every day smoker alcohol intake: former current occupational status: previously employed and disabled Travel in the last 8 weeks?: None Have you lived/traveled outside [place] in past 30 days?: No Contact w/someone who lives/traveled outside US past 30 days?: No Exposure to someone with infectious disease in past 14 days?: No Do you have a fever (greater than 100.4 F or 38 C)?: No Have you tested positive for COVID-19?: No Exposed to someone with COVID-19 in past 14 days?: No Do you have a sore throat?: No Do you have a cough?: No Do you have any weakness?: No Do you have any diarrhea?: No Are you experiencing any unusual bleeding?: No Do you have any muscle aches/pain?: No Do you have any abdominal pain?: No Are you experiencing loss of taste or smell?: No Other Medical History Have you received the Flu Vaccine for this season: No Have you received the Pneumonia Vaccine: No <ZI Naranjo - Last Filed: 07/21/24 19:48> ROS Obtained: Yes Systems reviewed as appropriate & no additional complaints except as documented Physical Exam <ZI Naranjo - Last Filed: 07/21/24 19:48> General General appearance: alert and in no apparent distress Respiratory Respiratory exam: Present normal lung sounds bilaterally Cardiovascular Cardiovascular exam: Present tachycardia Neurological Exam Neurological exam: Present alert and oriented X3 Skin Skin exam: Present dry Medical Decision Making <ZI Naranjo - Last Filed: 07/21/24 19:48> Medical Records Medical records reviewed: Yes I reviewed the patient's medical records. Screening: Per USPSTF and CDC recommendations, given the prevalence of disease in our region, it is our hospital?s policy to screen for HIV and viral Hepatitis for all patients aged 18 and over and those with ongoing risk factors. Moshe Inquiry Pt receiving controlled substance: No Vital Signs: 07/21/24 16:04 07/21/24 16:08 07/21/24 16:15 Temperature 97.9 F Temperature Source Oral Pulse Rate 107 H 91 H Pulse Rate [Apical] 112 H Respiratory Rate 14 18 14 Blood Pressure Blood Pressure [Right Arm] 126/91 H Blood Pressure Mean Blood Pressure Mean [Right Arm] 102 Blood Pressure Source [Right Arm] Automatic Cuff Blood Pressure Position [Right Arm] Sitting 02 Sat by Pulse Oximetry 98 98 96 Oxygen Delivery Method Room Air Room Air Room Air 07/21/24 16:30 07/21/24 16:50 07/21/24 16:53 Temperature Temperature Source Pulse Rate 98 H 80 Pulse Rate [Apical] Respiratory Rate 19 16 Blood Pressure 135/101 H 126/80 Blood Pressure [Right Arm] Blood Pressure Mean 95 Blood Pressure Mean [Right Arm] Blood Pressure Source [Right Arm] Blood Pressure Position [Right Arm] 02 Sat by Pulse Oximetry 94 L 97 99 Oxygen Delivery Method Room Air 07/21/24 17:00 07/21/24 17:30 07/21/24 18:00 Temperature Temperature Source Pulse Rate 79 75 83 Pulse Rate [Apical] Respiratory Rate 18 21 21 Blood Pressure 127/78 116/86 116/80 Blood Pressure [Right Arm] Blood Pressure Mean 87 86 Blood Pressure Mean [Right Arm] Blood Pressure Source [Right Arm] Blood Pressure Position [Right Arm] 02 Sat by Pulse Oximetry 95 93 L 94 L Oxygen Delivery Method Room Air 07/21/24 18:30 07/21/24 18:45 07/21/24 19:00 Temperature Temperature Source Pulse Rate 84 94 H 81 Pulse Rate [Apical] Respiratory Rate 14 14 15 Blood Pressure 114/83 123/83 Blood Pressure [Right Arm] Blood Pressure Mean Blood Pressure Mean [Right Arm] Blood Pressure Source [Right Arm] Blood Pressure Position [Right Arm] 02 Sat by Pulse Oximetry 96 96 96 Oxygen Delivery Method Room Air Room Air 07/21/24 19:31 Temperature 98.4 F Temperature Source Pulse Rate 72 Pulse Rate [Apical] Respiratory Rate 18 Blood Pressure 118/63 Blood Pressure [Right Arm] Blood Pressure Mean Blood Pressure Mean [Right Arm] Blood Pressure Source [Right Arm] Blood Pressure Position [Right Arm] 02 Sat by Pulse Oximetry Oxygen Delivery Method Lab Data Lab results reviewed: Yes I reviewed the patient's lab results. Lab Results 07/21/24 16:09: WBC 11.3 H, RBC 5.52, Hgb 17.1, Hct 48.8, MCV 88.4, MCH 31.0, MCHC 35.0, RDW 12.8, Plt Count 238, MPV 10.2, Neut % (Auto) 50.6, Lymph % (Auto) 40.3, [place] % (Auto) 7.1, Eos % (Auto) 1.1, Baso % (Auto) 0.6, Neut # (Auto) 5.7, Lymph # (Auto) 4.6 H, [place] # (Auto) 0.8, Eos # (Auto) 0.1, Baso # (Auto) 0.1, D-Dimer 1.47 H, Sodium 141, Potassium 3.9, Chloride 107, Carbon Dioxide 28, Anion Gap 9.9, BUN 16, Creatinine 0.90, Estimated Creat Clear 99, Estimated GFR 85, Est GFR ( Amer) 102, Glucose 189 H, Calcium 11.0 H, Magnesium 1.5 L, Total Bilirubin 0.7, AST 42, ALT 37, Alkaline Phosphatase 70, Troponin I < 0.01, NT-Pro-B Natriuret Pep 1560 H, Total Protein 7.5, Albumin 4.5, Globulin 3.0, Albumin/Globulin Ratio 1.5, Procalcitonin 0.055, TSH 1.13, Free T4 Index 2.6 L, Thyroxine (T4) 7.6, T3 Uptake 34 07/21/24 18:39: Troponin I < 0.01 07/21/24 16:09 07/21/24 16:09 Orders (Tests/Meds): ED MEDICATIONS Discontinued Medications Generic Name Dose Route Start Last Admin Trade Name Jem PRN Reason Stop Dose Admin Acetaminophen 1,000 mg 07/21/24 16:08 07/21/24 16:17 Acetaminophen 500mg Tab PO 07/21/24 16:09 1,000 mg ONCE ONE Administration Sodium Chloride 1,000 mls @ 999 mls/hr 07/21/24 16:08 07/21/24 16:17 Sod Chlor 0.9% 1000ml Bag IV 07/21/24 17:08 999 mls/hr .Q1H1M ONE Administration Magnesium Sulfate 2 gm in 50 mls @ 50 mls/hr 07/21/24 16:32 07/21/24 16:50 Magnesium Sulfate 2gm/50ml Premix IV 07/21/24 17:31 50 mls/hr ONCE ONE Administration Iopamidol 160 ml 07/21/24 16:41 07/21/24 16:44 Iopamidol-370 (76%);100ml Bottle IV 07/21/24 16:42 160 ml ONCE ONE Administration Ketorolac Tromethamine 15 mg 07/21/24 16:08 07/21/24 16:17 Ketorolac 30mg/Ml Vial IV 07/21/24 16:09 15 mg ONCE ONE Administration Ondansetron HCl 4 mg 07/21/24 16:08 07/21/24 16:18 Ondansetron 4mg/2ml Vial IV 07/21/24 16:09 4 mg ONCE ONE Administration Sodium Chloride 10 ml 07/21/24 16:41 07/21/24 16:44 Sodium Chloride 0.9% 10ml Syr (Rad Only) IV 07/21/24 16:42 10 ml ONCE ONE Administration Sodium Chloride 100 ml 07/21/24 16:41 07/21/24 16:44 0.9 % Sodium Chloride 50 Ml Vial IV 07/21/24 16:42 100 ml ONCE ONE Administration ORDERS Category Date Time Status CT angio chest - dissection Stat Cat Scan 07/21/24 16:[address] angio head Stat Cat Scan 07/21/24 16:[address] angio neck Stat Cat Scan 07/21/24 16:17 Completed BNP [NT Pro Brain Natriuretic Pep.] Stat Lab 07/21/24 16:09 Completed CBC w/Auto Diff [Complete Blood Count Auto Diff] Stat Lab 07/21/24 16:09 Completed CMP [Comprehensive Metabolic Panel] Stat Lab 07/21/24 16:09 Completed D-Dimer Stat Lab 07/21/24 16:09 Completed Magnesium Stat Lab 07/21/24 16:09 Completed Procalcitonin Stat Lab 07/21/24 16:09 Completed Thyroid Panel Stat Lab 07/21/24 16:09 Completed Trop I [Troponin I] Stat Lab 07/21/24 16:09 Completed Troponin I Q3H Lab 07/21/24 18:39 Completed HEART Score History (anamnesis): Slightly suspicious ECG: Non-specific disturbance Age: >65 years Risk factors: Atherosclerosis history Troponin: </= normal limit HEART Score: 5 Medical Decision Narrative: In summary patient is a 63-year-old male who presents to the emergency department for evaluation of chest pain. Patient is initially normotensive with a blood pressure 126/91 tachycardic at 170 sinus tachycardia at bedside monitor breathing 14 times minute satting at 90% on room air upon arrival, afebrile at 97.9. Physical exam is remarkable for no reproducible chest pain on palpation, breath sounds clear and equal bilaterally to the bases without adventitious sounds, heart sounds are S1-S2 rapid regular rate and rhythm without murmurs gallops rubs or thrills. Is no dependent edema noted. Abdomen soft nontender no rebound or guarding no rigidity normal bowel sounds.. Differential diagnosis includes ACS versus PE versus pneumonia versus pneumothorax versus dissection etc. Initial workup will be conducted with hematologic labs twelve-lead EKG CT scan angio of the head neck and chest. Initial interventions include crystalloid bolus Tylenol Toradol Zofran. Initial workup reviewed by me shows that his hematologic labs are remarkable for slightly low potassium which we will replete, and elevated NT proBNP 1560 with the remainder being nonactionable. His troponin is undetectable. My informal interpretation of his CT scans does not show any acute intracranial or intrathoracic process however patient has numerous pulmonary cysts. In review of his records these were known as far back as 2021 and patient had outpatient workup scheduled with pulmonology however was lost to follow-up. Upon repeat evaluation reported that his chest pain was now 0. Given this the patient was placed in observation status at 1655. Medical necessity for observational status is serial troponins. The patient was provided serial reevaluations continuous cardiac monitoring and pulse oximetry while awaiting results. Second troponin was also undetectable. Given this we have essentially ruled out any serious or life-threatening condition while there remains diagnostic uncertainty as to the cause of his pain I feel patient is safe for discharge. Patient will be referred to pulmonology for further workup of this pulmonary cyst, referred back to cardiology for checkup and follow-up with his PCP for persistent new or worsening signs or symptoms or return to the ER as needed. Total time in observation was 2 and half hours. <Harvey Mulligan MD - Last Filed: 07/21/24 22:09> Vital Signs: 07/21/24 16:04 07/21/24 16:08 07/21/24 16:15 Temperature 97.9 F Temperature Source Oral Pulse Rate 107 H 91 H Pulse Rate [Apical] 112 H Respiratory Rate 14 18 14 Blood Pressure Blood Pressure [Right Arm] 126/91 H Blood Pressure Mean Blood Pressure Mean [Right Arm] 102 Blood Pressure Source [Right Arm] Automatic Cuff Blood Pressure Position [Right Arm] Sitting 02 Sat by Pulse Oximetry 98 98 96 Oxygen Delivery Method Room Air Room Air Room Air 07/21/24 16:30 07/21/24 16:50 07/21/24 16:53 Temperature Temperature Source Pulse Rate 98 H 80 Pulse Rate [Apical] Respiratory Rate 19 16 Blood Pressure 135/101 H 126/80 Blood Pressure [Right Arm] Blood Pressure Mean 95 Blood Pressure Mean [Right Arm] Blood Pressure Source [Right Arm] Blood Pressure Position [Right Arm] 02 Sat by Pulse Oximetry 94 L 97 99 Oxygen Delivery Method Room Air 07/21/24 17:00 07/21/24 17:30 07/21/24 18:00 Temperature Temperature Source Pulse Rate 79 75 83 Pulse Rate [Apical] Respiratory Rate 18 21 21 Blood Pressure 127/78 116/86 116/80 Blood Pressure [Right Arm] Blood Pressure Mean 87 86 Blood Pressure Mean [Right Arm] Blood Pressure Source [Right Arm] Blood Pressure Position [Right Arm] 02 Sat by Pulse Oximetry 95 93 L 94 L Oxygen Delivery Method Room Air 07/21/24 18:30 07/21/24 18:45 07/21/24 19:00 Temperature Temperature Source Pulse Rate 84 94 H 81 Pulse Rate [Apical] Respiratory Rate 14 14 15 Blood Pressure 114/83 123/83 Blood Pressure [Right Arm] Blood Pressure Mean Blood Pressure Mean [Right Arm] Blood Pressure Source [Right Arm] Blood Pressure Position [Right Arm] 02 Sat by Pulse Oximetry 96 96 96 Oxygen Delivery Method Room Air Room Air 07/21/24 19:31 Temperature 98.4 F Temperature Source Pulse Rate 72 Pulse Rate [Apical] Respiratory Rate 18 Blood Pressure 118/63 Blood Pressure [Right Arm] Blood Pressure Mean Blood Pressure Mean [Right Arm] Blood Pressure Source [Right Arm] Blood Pressure Position [Right Arm] 02 Sat by Pulse Oximetry Oxygen Delivery Method Lab Data Lab Results 07/21/24 16:09: WBC 11.3 H, RBC 5.52, Hgb 17.1, Hct 48.8, MCV 88.4, MCH 31.0, MCHC 35.0, RDW 12.8, Plt Count 238, MPV 10.2, Neut % (Auto) 50.6, Lymph % (Auto) 40.3, [place] % (Auto) 7.1, Eos % (Auto) 1.1, Baso % (Auto) 0.6, Neut # (Auto) 5.7, Lymph # (Auto) 4.6 H, [place] # (Auto) 0.8, Eos # (Auto) 0.1, Baso # (Auto) 0.1, D-Dimer 1.47 H, Sodium 141, Potassium 3.9, Chloride 107, Carbon Dioxide 28, Anion Gap 9.9, BUN 16, Creatinine 0.90, Estimated Creat Clear 99, Estimated GFR 85, Est GFR ( Amer) 102, Glucose 189 H, Calcium 11.0 H, Magnesium 1.5 L, Total Bilirubin 0.7, AST 42, ALT 37, Alkaline Phosphatase 70, Troponin I < 0.01, NT-Pro-B Natriuret Pep 1560 H, Total Protein 7.5, Albumin 4.5, Globulin 3.0, Albumin/Globulin Ratio 1.5, Procalcitonin 0.055, TSH 1.13, Free T4 Index 2.6 L, Thyroxine (T4) 7.6, T3 Uptake 34 07/21/24 18:39: Troponin I < 0.01 Orders (Tests/Meds): ED MEDICATIONS Discontinued Medications Generic Name Dose Route Start Last Admin Trade Name Freq PRN Reason Stop Dose Admin Acetaminophen 1,000 mg 07/21/24 16:08 07/21/24 16:17 Acetaminophen 500mg Tab PO 07/21/24 16:09 1,000 mg ONCE ONE Administration Sodium Chloride 1,000 mls @ 999 mls/hr 07/21/24 16:08 07/21/24 16:17 Sod Chlor 0.9% 1000ml Bag IV 07/21/24 17:08 999 mls/hr .Q1H1M ONE Administration Magnesium Sulfate 2 gm in 50 mls @ 50 mls/hr 07/21/24 16:32 07/21/24 16:50 Magnesium Sulfate 2gm/50ml Premix IV 07/21/24 17:31 50 mls/hr ONCE ONE Administration Iopamidol 160 ml 07/21/24 16:41 07/21/24 16:44 Iopamidol-370 (76%);100ml Bottle IV 07/21/24 16:42 160 ml ONCE ONE Administration Ketorolac Tromethamine 15 mg 07/21/24 16:08 07/21/24 16:17 Ketorolac 30mg/Ml Vial IV 07/21/24 16:09 15 mg ONCE ONE Administration Ondansetron HCl 4 mg 07/21/24 16:08 07/21/24 16:18 Ondansetron 4mg/2ml Vial IV 07/21/24 16:09 4 mg ONCE ONE Administration Sodium Chloride 10 ml 07/21/24 16:41 07/21/24 16:44 Sodium Chloride 0.9% 10ml Syr (Rad Only) IV 07/21/24 16:42 10 ml ONCE ONE Administration Sodium Chloride 100 ml 07/21/24 16:41 07/21/24 16:44 0.9 % Sodium Chloride 50 Ml Vial IV 07/21/24 16:42 100 ml ONCE ONE Administration ORDERS Category Date Time Status CT angio chest - dissection Stat Cat Scan 07/21/24 16:[address] angio head Stat Cat Scan 07/21/24 16:[address] angio neck Stat Cat Scan 07/21/24 16:17 Completed BNP [NT Pro Brain Natriuretic Pep.] Stat Lab 07/21/24 16:09 Completed CBC w/Auto Diff [Complete Blood Count Auto Diff] Stat Lab 07/21/24 16:09 Completed CMP [Comprehensive Metabolic Panel] Stat Lab 07/21/24 16:09 Completed D-Dimer Stat Lab 07/21/24 16:09 Completed Magnesium Stat Lab 07/21/24 16:09 Completed Procalcitonin Stat Lab 07/21/24 16:09 Completed Thyroid Panel Stat Lab 07/21/24 16:09 Completed Trop I [Troponin I] Stat Lab 07/21/24 16:09 Completed Troponin I Q3H Lab 07/21/24 18:39 Completed ECG Data Tracing #1: I reviewed this ECG and interpreted as documented below: (Independent interpretation of EKG with sinus tachycardia frequent PVCs. CO interval 161, QRS 130, QTc 417. Leftward axis with LVH. Bifascicular block. No obvious acute ischemic change) HEART Score HEART Score: 5 Medical Decision Narrative: In summary patient is a 63-year-old male who presents to the emergency department for evaluation of chest pain. Patient is initially normotensive with a blood pressure 126/91 tachycardic at 170 sinus tachycardia at bedside monitor breathing 14 times minute satting at 90% on room air upon arrival, afebrile at 97.9. Physical exam is remarkable for no reproducible chest pain on palpation, breath sounds clear and equal bilaterally to the bases without adventitious sounds, heart sounds are S1-S2 rapid regular rate and rhythm without murmurs gallops rubs or thrills. Is no dependent edema noted. Abdomen soft nontender no rebound or guarding no rigidity normal bowel sounds.. Differential diagnosis includes ACS versus PE versus pneumonia versus pneumothorax versus dissection etc. Initial workup will be conducted with hematologic labs twelve-lead EKG CT scan angio of the head neck and chest. Initial interventions include crystalloid bolus Tylenol Toradol Zofran. Initial workup reviewed by me shows that his hematologic labs are remarkable for slightly low potassium which we will replete, and elevated NT proBNP 1560 with the remainder being nonactionable. His troponin is undetectable. My informal interpretation of his CT scans does not show any acute intracranial or intrathoracic process however patient has numerous pulmonary cysts. In review of his records these were known as far back as 2021 and patient had outpatient workup scheduled with pulmonology however was lost to follow-up. Upon repeat evaluation reported that his chest pain was now 0. Given this the patient was placed in observation status at 1655. Medical necessity for observational status is serial troponins. The patient was provided serial reevaluations continuous cardiac monitoring and pulse oximetry while awaiting results. Second troponin was also undetectable. Given this we have essentially ruled out any serious or life-threatening condition while there remains diagnostic uncertainty as to the cause of his pain I feel patient is safe for discharge. Patient will be referred to pulmonology for further workup of this pulmonary cyst, referred back to cardiology for checkup and follow-up with his PCP for persistent new or worsening signs or symptoms or return to the ER as needed. Total time in observation was 2 and half hours. I was consulted by the SRUTHI, and we discussed the complexity of the problems being addressed. I approved the treatment and management plan for this patient's care in the Emergency Department, thus performing a substantive portion of the medical decision making. Harvey Mulligan MD Critical Care <ZI Naranjo - Last Filed: 07/21/24 19:48> Critical Care Time Critical Care Time: No
[2024-07-21 16:17] LABS: Basophils # 0.1 K/mm3 (0-0.2); Basophils % 0.6 % (0.1-2.0); Eosinophils # 0.1 Kmm3 (0.0-0.4); Eosinophils % 1.1 % (0.1-12.0); Hematocrit 48.8 % (42.0-52.0); Hemoglobin 17.1 g/dL (14.1-18.0); Immature Granulocytes # 0.03 10^3uL; Immature Granulocytes % 0.3 %; Lymphocytes # 4.6 K/mm3 (0.7-4.5); Lymphocytes % 40.3 % (10-50); Mean Corpuscular Volume 88.4 fl (80-94); Mean Platelet Volume 10.2 fl (7.4-10.4); Monocytes # 0.8 K/mm3 (0.1-1.0); Monocytes % 7.1 % (1.7-9.3); Neutrophils # 5.7 K/mm3 (1.8-7.8); Neutrophils % 50.6 % (37.0-80.0); Nucleated Red Blood Cells # 0 10^3/uL; Nucleated Red Blood Cells % 0 %; Platelet Count 238 K/mm3 (142-424); Red Blood Count 5.52 M/mm3 (4.60-6.20); Red Cell Distribution Width 12.8 % (11.5-17.5); Red Cell Distribution Width-SD 41.4 fL; White Blood Count 11.3 K/mm3 (4.8-10.8)
[2024-07-21] MEDS: ACETAMINOPHEN 500MG TAB 1000 MG PO (16:17)
[2024-07-21] MEDS: 0.9 % SODIUM CHLORIDE 1000ML 1,000 ML 999 ML IV (16:17)
[2024-07-21] MEDS: KETOROLAC 30MG/ML VIAL 15 MG IV (16:17)
--- NOTE | 2024-07-21 16:17 | CT_ITS ---
PROCEDURE INFORMATION: Exam: CTA Neck With Contrast Exam date and time: 07/21/2024 4:42 PM Age: 63 years old Clinical indication: Other: Blurred vision; Additional info: Chest pain, right eye blurred vision TECHNIQUE: Imaging protocol: Computed tomographic angiography of the neck with contrast. Exam focused on the cervical segments of the vasculature. 3D rendering (Not supervised by radiologist): MIP and/or 3D reconstructed images were created by the technologist. Radiation optimization: All CT scans at this facility use at least one of these dose optimization techniques: automated exposure control; mA and/or kV adjustment per patient size (includes targeted exams where dose is matched to clinical indication); or iterative reconstruction. Contrast material: ISOVUE; Contrast volume: 80 ml; Contrast route: INTRAVENOUS (IV); COMPARISON: CT ANGIO NECK 09/27/2023 12:35 PM FINDINGS: Right common carotid artery: No stenosis. No dissection or occlusion. Right internal carotid artery: No significant stenosis. No dissection or occlusion. Right external carotid artery: No occlusion or stenosis of the origin. Left common carotid artery: No stenosis. No dissection or occlusion. Left internal carotid artery: No significant stenosis. No dissection or occlusion. Left external carotid artery: No occlusion or stenosis of the origin. Right vertebral artery: No stenosis. No dissection or occlusion. Left vertebral artery: No stenosis. No dissection or occlusion. Soft tissues: Normal. No significant soft tissue swelling. Bones/joints: No acute fracture. IMPRESSION: Unremarkable examination with no significant stenosis, dissection, or occlusion. REFERENCES: NASCET CRITERIA. The degree of stenosis in the cervical segment of the internal carotid artery is based on NASCET criteria. Normal is no stenosis. Mild is less than 50% stenosis. Moderate is 50-69% stenosis. Severe is 70% to 99% stenosis. Total occlusion is no detectable patent lumen.
--- NOTE | 2024-07-21 16:17 | CT_ITS ---
PROCEDURE INFORMATION: Exam: CTA Chest With Contrast Exam date and time: 07/21/2024 4:45 PM Age: 63 years old Clinical indication: Pain; Chest pressure; Additional info: Chest pain, right eye blurred vision TECHNIQUE: Imaging protocol: Computed tomographic angiography of the chest with contrast. Exam focused on the arteries. 3D rendering (Not supervised by radiologist): MIP and/or 3D reconstructed images were created by the technologist. Radiation optimization: All CT scans at this facility use at least one of these dose optimization techniques: automated exposure control; mA and/or kV adjustment per patient size (includes targeted exams where dose is matched to clinical indication); or iterative reconstruction. Contrast material: ISOVUE; Contrast volume: 80 ml; Contrast route: INTRAVENOUS (IV); COMPARISON: CT ANGIO CHEST 06/25/2024 1:12 PM FINDINGS: Tubes, catheters and devices: Spinal stimulating electrodes identified within the midthoracic spine. Pulmonary arteries: No CT evidence for pulmonary embolism. Aorta: Unremarkable. No aortic aneurysm. No aortic dissection. Lungs: There are a scattered pulmonary cysts identified mostly within the lung bases. These are unchanged. 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 These do not have the characteristic appearance of emphysematous related bulla. Focal scarring within the right anterior upper lung zone. No acute infiltrates. Pleural spaces: Unremarkable. No pneumothorax. No pleural effusion. Heart: Unremarkable. No cardiomegaly. No pericardial effusion. Lymph nodes: Unremarkable. No enlarged lymph nodes. Bones/joints: Unremarkable. No acute fracture. Soft tissues: Unremarkable. IMPRESSION: 1. No CT evidence for pulmonary embolism. 2. There are a multiple (approximately 20 scattered pulmonary cysts identified mostly within the lung bases. These are unchanged. 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 These do not have the characteristic appearance of emphysematous related bulla. 3. Focal scarring within the right anterior upper lung zone. No acute infiltrates.
--- NOTE | 2024-07-21 16:17 | CT_ITS ---
PROCEDURE INFORMATION: Exam: CTA Head With Contrast, Arteriography Exam date and time: 07/21/2024 4:42 PM Age: 63 years old Clinical indication: Other: Blurred vision; Additional info: Chest pain, right eye blurred vision TECHNIQUE: Imaging protocol: Computed tomographic angiography of the head with contrast. Exam focused on the arteries. 3D rendering (Not supervised by radiologist): MIP and/or 3D reconstructed images were created by the technologist. Radiation optimization: All CT scans at this facility use at least one of these dose optimization techniques: automated exposure control; mA and/or kV adjustment per patient size (includes targeted exams where dose is matched to clinical indication); or iterative reconstruction. Contrast material: ISOVUE; Contrast volume: 80 ml; Contrast route: INTRAVENOUS (IV); COMPARISON: CT ANGIO HEAD 09/27/2023 12:35 PM FINDINGS: ANTERIOR CIRCULATION: Right internal carotid artery: Intracranial segment is patent with no significant stenosis or occlusion. No aneurysm. Right middle cerebral artery: No occlusion or significant stenosis. No aneurysm. Right anterior cerebral artery: No occlusion or significant stenosis. No aneurysm. Left internal carotid artery: Intracranial segment is patent with no significant stenosis. No aneurysm. Left middle cerebral artery: No occlusion or significant stenosis. No aneurysm. Left anterior cerebral artery: No occlusion or significant stenosis. No aneurysm. POSTERIOR CIRCULATION: Right vertebral artery: No occlusion or significant stenosis. No aneurysm. Left vertebral artery: No occlusion or significant stenosis. No aneurysm. Basilar artery: No occlusion or significant stenosis. No aneurysm. Right posterior cerebral artery: No occlusion or significant stenosis. No aneurysm. Left posterior cerebral artery: No occlusion or significant stenosis. No aneurysm. Veins: There is no venous thrombosis. Brain: Normal. No hemorrhage. Unremarkable white matter. No mass effect. Cerebral ventricles: Normal. No ventriculomegaly. Bones/joints: Unremarkable. No acute fracture. Soft tissues: Unremarkable. IMPRESSION: No evidence for a embolism, dissection, aneurysm, or venous thrombosis. There is no significant stenosis.
--- OUTSIDE RECORDS SUMMARY | 2024-07-21 16:17 | XMS_ITS | Encounter Summary ---
Author Organization [place] [address] Care Team Providers Care Tower Technician Name Role Phone Mila Lange MD Primary Care Provider [phone] Nery Mccartney RN Unavailable Unavail able Reason for Visit * Reason Comments Medication Refill Encounter Details Date Type Department Care Team (Late Contact Info) Description 05/29/2024 Refill [facility] [address] [place] [phone] Mila Lange MD [address] [place], [place] [id number] Medication Refill Social History Tobacco Use Types Packs/Day Years Used Date Smoking Tobacco: Every Day Cigarettes 1.5 55.4 Started: 02/07/1969 Smokeless Tobacco: Never Comments:Pt reports he is cu rrently smoking 0.5ppd-02/13/19-KR Pt states he is only smoking 3-4 cigarettes a day now - 01/19/24 KN Alcohol Use Standard Drinks/Week Comments Yes 4 (1 standard drink = 0.6 oz pure alcohol) pt reports drinking 4 shots of whiskey tonight [facility] Utilities Answer Date Recorded In the past 12 months has e electric, gas, oil, or water company threatened to shut off services in your home? No 05/11/2024 Overall Financial Resource Strain (CARDIA) Answe r Date Recorded How hard is it for you to pa y for the very basics like food, housing, medical care, and heating? Not very hard 05/11/2024 PHQ-2 Answer Date Recorded PHQ-2 Total Score 0 05/11/2024 [facility] Occupational Stress Questionnaire Answer Date [...] things needed for daily living? No [facility]20[facility] IP Transportation Answer D ate Recorded In [...] on file documented as of this encounter Functional Status * Is the [...] Jon Brink MA documented in this encounter Ordered Prescriptions Prescription Sig Dispense Quantity Refills Last Filled Start Date End Date tamsulosin (FLOMAX) 0.4 mg Oral CapsuleIndications :BPH with urinary obstruction TAKE 1 CAPSULE BY MOUTH NIGHTLY 30 Capsule 05/30/2024 documented in this encounter Miscellaneous Notes * Telephone Encounter - Omayra Rivera CPhT - 05/30/2024 11:44 AM EDT Tamsulosin- Future Visit: None Last Assessed Visit: 01/28/23 Follow-Up Date: 07/30/23 Appointment protocol failed. One chung supply sent to pharmacy. Routed to Office. documented in this encounter Plan of Treatment Not on file documented as of this encounter Goals Goal [...] scheduled on 03/28/24. General Not on track( 025 3:14 PM EST) No Nery Mccartney RN Patient will limit daily intake of sodium to no more than 2000 mg per day by next visit on 04/06/24. General On track( 3:18 PM EST) No Nery Mccartney RN Patient will limit daily fluid intake [...] as of this encounter Visit Diagnoses Diagnosis BPH with urinary obstruction Hypertrophy of prostate with urinary obstruction and other lower urinary tract symptoms (LUTS) documented in this encounter Discontinued Medications Medication Sig Discontinue Reason Start Date End Da te tamsulosin (FLOMAX) 0.4 mg Oral CapsuleIndications:BPH with urinary obstruction Take 1 Capsule by mouth nightly. 01/28/2023 05/30/2024 documented as of this encounter Additional Health Concerns Assessment Noted Time A fall risk assessment has been complete d for the patient 10/06/2023 2:50 PM EDT documented as of this encounter Care Teams Tower Technician Relationship Specialty Start Date End Date Mila Lange MD [address] [place] [address] PCP - General Family Medicine 06/22/11 Nery Mccartney RN Transition Social Worker Registered Nurse 03/23/24 documented as of this encounter
[2024-07-21] MEDS: ONDANSETRON 4MG/2ML VIAL 4 MG IV (16:18)
--- OUTSIDE RECORDS SUMMARY | 2024-07-21 16:18 | XMS_ITS | Encounter Summary ---
Author Organization [place] [address] Care Team Providers Care Digital Computer Systems Analyst Name Role Phone Mila Lange MD Primary Care Provider [phone] Reason for Visit * Reason Onset Date Comments CM- Longitudinal Graduation 06/08/2024 Encounter Details Date Type Department Care Team (Late Contact Info) Description 06/08/2024 Patient Outreach [facility] [address] [place] [phone] Nery Mccartney RN CM- Longitudinal Graduation Social History Tobacco Use Types Packs/Day Years [...] pt reports drinking 4 shots of whiskey [facility] Utilities Answer Date Recorded In the past 12 months has [employer] electric, gas, oil, or water company threatened to shut off services in your home? No 05/11/2024 Overall Financial Resource Strain (CARDIA) Answe r Date Recorded How hard is it for you to pa y for the very basics like food, housing, medical care, and heating? Not very hard 05/11/2024 PHQ-2 Answer Date Recorded PHQ-2 Total Score 0 05/11/2024 [facility] [place] [facility] - Occupational Stress Questionnaire Answer Date Recorded [...] things needed for daily living? No [facility]/12/2023 [facility] IP Transportation Answer D [...] of Assessment Author No 03/16/2024 8:51 AM oJn Brink MA * Does this person have [...] documented in this encounter Progress Notes * Nery Mccartney RN - 06/08/2024 3:36 PM EDT Care Management (CM) final visit: Date of longitudinal care coordination initiated: 03/23/24 Date of discharge from care coordination: 06/08/24 Reason for discharge: Discharging patient from Care Coordination services after multiple attempts to contact patient for follow up. Attempts to reach patient were made on the following dates: 04/16/24, 04/30/24, 05/07/24 and 05/31/24. documented in this encounter Plan of Treatment [...] documented as of this encounter Visit Diagnoses Not on filedocumented in this encounter Additional Health Concerns Assessment Noted Time A fall risk assessment has been complete d for the patient 10/06/2023 2:50 PM EDT documented as of this encounter Care Teams Digital Computer Systems Analyst Relationship Specialty Start Date End Date Mila Lange MD [address] [place] [address] PCP - General Family Medicine 06/22/11 documented as of this encounter
--- OUTSIDE RECORDS SUMMARY | 2024-07-21 16:18 | XMS_ITS | Clinical Summary ---
Author Organization [facility] Address [address] [place] [address] Phone Care Team Providers Care Dust Collector Name Role Phone Mila Lange MD Primary Care Provider [phone] Allergies Active Allergy Reactions Criticality Noted Date Comments Gabapentin Swelling 05/02/2022 [id number] Antimigraine Agents Other (See Comments) 01/19/2024 Contraindicated due to CAD Wasp Venom Shortness Of Breath,Swelling High 05/10/2016 Medications * This document contains information received from the source organization and may not represent a complete record from that organization. Blood-Glucose Meter Misc Kit Meter strips and lancets to test bid prn E11.9 11 refills 1 Kit 03/17/19 22 Active multivitamin with folic acid (THERAGRAN) 400 mcg Oral Tablet Take by mouth daily. Active sertraline (ZOLOFT) 100 mg Oral TabletIndicatio ns:Adjustment disorder with mixed anxiety and depressed mood Take 0.5 Tablets by mouth nightly. 08/16/19 23 Active albuterol (PROVENTIL HFA;VENTOLIN HFA) 90 mcg/actuation Inhl HFA Aerosol InhalerIndicati ons:COPD, severe (HCC) Inhale 2 Puffs into the lungs every 4 hours as needed for Wheezing. 1 Each 2 09/18/19 23 Active albuterol (PROVENTIL) 2.5 mg /3 mL (0.083 %) Inhl Solution for NebulizationInd ications:COPD, severe (HCC) Take 3 mL by nebulization every 4 hours as needed. for wheezing 180 mL 3 09/18/19 Active RENEA PEN NEEDLE 32 gauge x 5/32 Misc Needle USE DAILY WITH LEVEMIR 100 Each 10 11/12/19 Active tiotropium (SPIRIVA) 18 mcg Inhl Capsule, w/Inhalation Device Inhale 1 Capsule into the lungs daily. 30 Capsule 2 01/15/20 Active nalOXone (NARCAN) 4 mg/actuation Nasl [place], Non-Aerosol 0.1 mL by Nasal route as needed for Opioid Reversal. 1 Each 01/15/20 Active omeprazole (PRILOSEC) 40 mg Oral Capsule, Delayed Release(E.C.)In dications:Gastr oesophageal reflux disease without esophagitis TAKE 1 CAPSULE BY MOUTH DAILY 90 Capsule 1 01/03/20 Active ranolazine (RANEXA) 500 mg Oral Tablet Sustained Release 12 hr Take 500 mg by mouth 2 times daily. Active ubrogepant (UBRELVY) 100 mg Oral TabletIndicatio ns:Migraine without aura and with status migrainosus, not intractable Take 1 Tablet by mouth as needed for Migraine. May repeat dose in 2 hours one time up to a maximum of 200mg per 24 hours 16 Tablet 6 01/19/20 Active Additional Information Patient not taking.Reported on 05/24/2024 insulin glargine U-300 conc (TOUJEO MAX U-300 SOLOSTAR) 300 unit/mL (3 mL) SubQ Insulin PenIndications: Type 2 diabetes mellitus with hyperglycemia, without long-term current use of insulin (HCC) Subcutaneous (Inject under the skin) 46 Units nightly. [place] too please. May increase 2 units per day until fasting blood sugar is 80-110. Max potential is 100 units 18 mL 3 01/25/20 Active Additional Information Patient taking differently: 36 UnitsSubcutaneous NIGHTLY, [place] too please. May increase 2 units per day until fasting blood sugar is 80-110. Max potential is 100 units, Reason: Other, Reported on 05/24/2024 DULoxetine (CYMBALTA) 30 mg Oral Capsule, Delayed Release(E.C.) Take 1 Capsule by mouth daily. 30 Capsule 3 01/25/20 Active rosuvastatin (CRESTOR) 40 mg Oral Tablet Take 1 Tablet by mouth nightly. 90 Tablet 3 01/25/20 24 Active metoprolol succinate (TOPROL-XL) 25 mg Oral Tablet Sustained Release 24 hr Take 1 Tablet by mouth daily. 30 Tablet 5 11:03 AM EST 03/14/19 25 Active midodrine (PROAMATINE) 5 mg Oral Tablet Take 1 Tablet by mouth 3 times daily (with meals). 90 Tablet 5 11:03 AM EST 03/13/19 25 Active pregabalin (LYRICA) 25 mg Oral CapsuleIndicati ons:Diabetic peripheral neuropathy (HCC),RLS (restless legs syndrome) Start one tab at night and may increase to 2 tabs if needed for restless legs and nerve pain. 60 Capsule 2 03/16/19 25 Active nitroGLYCERIN (NITROSTAT) 0.4 mg SL Tablet, Sublingual Place 1 Tablet under the tongue every 5 minutes as needed for Chest pain. 12 Tablet 2 03/23/19 25 Active DEXCOM G7 SENSOR [facility] DeviceIndicatio ns:Type 2 diabetes mellitus with hyperglycemia, without long-term current use of insulin ([facility]) 1 Each by [facility].(Non-Drug; Combo Route) route every 10 days. Follow package directions to apply sensor for continuous blood glucose monitoring. Change sensor every 10 days. 3 Each 3 03/26/19 25 Active HYDROcodone-alee taminophen (NORCO) 5-325 mg Oral Tablet Take 1 Tablet by mouth every 6 hours as needed for Acute Pain (R52). 12 Tablet 04/24/19 25 Active aspirin 81 mg Oral Tablet, Chewable Take 1 Tablet by mouth daily. 90 Tablet 04/25/19 25 Active ACCU-CHEK GUIDE TEST STRIPS [facility] StripIndication s:Type 2 diabetes mellitus without complication, without long-term current use of insulin ([facility]) TEST BLOOD SUGAR TWICE DAILY 100 Strip 04/26/19 25 Active ACCU-CHEK SOFTCLIX LANCETS [facility] USE TO TEST BLOOD SUGAR TWICE DAILY 100 Each 04/26/19 25 Active amoxicillin-cla vulanate (AUGMENTIN) 500-125 mg Oral Tablet TAKE ONE TABLET BY MOUTH THREE TIMES DAILY FOR 7 DAYS -- FINISH ALL MEDICINE -- 05/19/19 25 Active tamsulosin (FLOMAX) 0.4 mg Oral CapsuleIndicati ons:BPH with urinary obstruction TAKE 1 CAPSULE BY MOUTH NIGHTLY 30 Capsule 04/23/20 25 Active Active Problems Patient Care Coordination No te Formatting of this note migh t be different from the original. [facility] - Dr. Epps Interventional Pain Protocol: SNC Appt 05/02/24, NS Appt 03/28/24, 06/06/24 Moshe report completed (EVERY 3 MONTHS) (06/06/2024 ) Pharmacy: [facility] [place] [address] - [address] [facility] [phone] Spine Center additional info (Transportation, WC, Compound, No Show, PPW) Moshe 10/29/15 As expected Problem Noted Date Diagnosed Date Colitis. Patient has improved. 05/10/2024 Assessment & Plan (05/28/2024 8:35 PM EDT): Assessment & Plan (05/13/2024 2:02 PM EDT): We will continue to treat with Cipro and Flagyl orally for 5 more days Continue diet as tolerated. Out of bed as tolerated. Assessment & Plan (05/12/2024 2:48 PM EDT): We will continue to treat with Cipro 400 mg twice daily and Flagyl 500 mg 3 times daily Continue diet as tolerated. Out of bed as tolerated. Assessment & Plan (05/11/2024 5:59 PM EDT): We will treat with Cipro 400 mg twice daily and Flagyl 500 mg 3 times daily Continue gentle IV hydration with NS at 100 mL/h Continue diet as tolerated. Repeat CBC and BMP in AM. Assessment & Plan (05/10/2024 5:47 PM EDT): We will treat with Cipro 400 mg twice daily and Flagyl 500 mg 3 times daily Gentle IV hydration with NS at 100 mL/h Alcoholic intoxication without complication 04/07 Syncope, unspecified syncope type 03/10/2024 Assessment & Plan (05/13/2024 10:32 AM EDT): Continue midodrine 5 mg 3 times daily Assessment & Plan (05/12/2024 12:02 PM EDT): Continue midodrine 5 mg 3 times daily Assessment & Plan (05/11/2024 5:59 PM EDT): Continue midodrine 5 mg 3 times daily Assessment & Plan (05/10/2024 5:47 PM EDT): Continue IV hydration. Resume midodrine 5 mg 3 times daily Assessment & Plan (03/13/2024 12:48 PM EST): CTH and CT cspine no acute XR T/L spine no acute ECHO 02/03/24 noted Orthos +; added midodrine and resolved BB decreased Pain mgt for back pain PT rec SNF. Pt declined as could not afford copay. 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 diet Diabetic ketoacidosis with c osmany associated with type 2 diabetes mellitus 02/02/2024 Syncope 02/02/2024 Assessment & Plan (02/02/2024 12:58 PM EST): Likely secondary to orthostasis from dehydration/DKA/medications IV fluids Check orthostatics Right shoulder pain 02/02/2024 Assessment & Plan (02/02/2024 12:58 PM EST): Check right shoulder x-ray Pain control Hypophosphatemia 02/02/2024 Assessment & Plan (02/02/2024 12:58 PM EST): Replace Leukocytosis 02/02/2024 Assessment & Plan (02/02/2024 12:58 PM EST): Now resolved DVT prophylaxis: -Subcu Lovenox Dispo: -ICU for now -PT/OT consults Atypical chest pain 11/08/2023 Debility 11/07/2023 Acute exacerbation of chronic low back pain 10/10 Intractable low back pain 11/07/2023 Chronic back pain 11/06/2023 Assessment & Plan (02/02/2024 12:58 PM EST): Acute on chronic Oxycodone as needed Chest pain in adult 11/06/2023 Chest pain 05/08/2023 Chest pain, unspecified type 05/07/[address] 01/28/2023 Cystic lung, congenital 01/28/2023 Dog bite of arm 01/28/2023 Presence of stent in LAD coronary artery 023 Assessment & Plan (03/16/2024 12:53 PM EST): Assessment & Plan (01/21/2024 1:41 PM EST): Orders: AMB REFERRAL TO CARDIOLOGY 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) 01/28/2023 Atrial fibrillation and flutter 01/28/2023 Assessment & Plan (03/13/2024 12:48 PM EST): BB Adhesive capsulitis of left shoulder 01/18/2023 Cervical radiculopathy 01/18/2023 COPD exacerbation 01/11/2023 COPD with acute exacerbation 01/11/2023 Type 2 diabetes mellitus wit h hyperglycemia, without long-term current use of insulin 08/10/2022 Assessment & Plan (04/10/2024 7:28 PM EST): stable Orders: AMB REFERRAL TO PODIATRY CBC WITH DIFF; Future COMPREHENSIVE METABOLIC PANEL; Future TSH REFLEX; Future VITAMIN B12/ FOLIC ACID; Future HEMOGLOBIN A1C; Future LIPID SCREEN; Future Paroxysmal atrial fibrillation with RVR 08/11/19 Assessment & Plan (03/13/2024 12:48 PM EST): BB Acute chest pain 05/02/2022 Assessment & Plan (02/02/2024 12:58 PM EST): Likely musculoskeletal secondary to fall Troponins negative Chronic diastolic congestive heart failure 05/02 Assessment & Plan (05/28/2024 8:35 PM EDT): stable Assessment & Plan (04/30/2024 8:24 AM EDT): Assessment & Plan (03/13/2024 12:48 PM EST): BB Assessment & Plan (02/02/2024 12:58 PM EST): Compensated Assessment & Plan (01/21/2024 1:41 PM EST): Orders: AMB REFERRAL TO CARDIOLOGY stable SIRS (systemic inflammatory response syndrome) 1 03/26/2021 Pericardial effusion 09/07/2021 Coronary artery disease 07/29/2021 Overview (07/29/2021): Added automatically from request for surgery [id number] Assessment & Plan (02/02/2024 12:58 PM EST): History of ME Consider baby aspirin, consider statin PAF (paroxysmal atrial fibrillation) 06/30/2021 Assessment & Plan (05/13/2024 10:32 AM EDT): Continue to monitor for now. No anticoagulation Continue to hold metoprolol for now. Assessment & Plan (05/12/2024 2:48 PM EDT): Continue to monitor for now. No anticoagulation Continue to hold metoprolol for now. Assessment & Plan (05/11/2024 12:02 PM EDT): Continue to monitor for now. No anticoagulation Hold metoprolol for now. Assessment & Plan (05/10/2024 5:47 PM EDT): Continue to monitor for now. No anticoagulation Hold metoprolol for now. 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 Assessment & Plan (01/21/2024 1:41 PM EST): - co-managed with Cardiology and advised to follow-up as directed Orders: AMB REFERRAL TO CARDIOLOGY stable Hyponatremia 01/30/2019 Assessment & Plan (02/02/2024 12:58 PM EST): Change IV fluids, follow sodium Post laminectomy syndrome 01/19/2019 Assessment & Plan (03/16/2024 12:53 PM EST): Orders: AMB REFERRAL TO SPINE CENTER Lumbosacral spondylosis without myelopathy 01/19 Assessment & Plan (05/28/2024 8:35 PM EDT): Assessment & Plan (04/30/2024 8:24 AM EDT): Assessment & Plan (04/10/2024 7:28 PM EST): Orders: ketorolac (TORADOL) injection 60 mg methylPREDNISolone acetate (DEPO-Medrol) injection 120 mg CBC WITH DIFF; Future COMPREHENSIVE METABOLIC PANEL; Future TSH REFLEX; Future VITAMIN B12/ FOLIC ACID; Future HEMOGLOBIN A1C; Future LIPID SCREEN; Future Assessment & Plan (03/16/2024 12:53 PM EST): Orders: AMB REFERRAL TO SPINE CENTER Chronic pain syndrome 01/19/2019 Aortic root dilatation 10/25/2017 Overview (10/25/2017): Echo 04-22-16 Marked aortic dilatation at the level of the sinuses of valsalva (root): 4.6 cm. S/P placement of VNS (vagus nerve stimulation) d evice 03/25/2017 Somatic symptom disorder, mo derate, with predominant pain, persistent 06/07/2016 BPH (benign prostatic hyperplasia) 05/10/2016 ED (erectile dysfunction) 05/10/2016 Type 2 diabetes mellitus wit h hyperglycemia, with long-term current use of insulin 04/15/2016 Assessment & Plan (05/28/2024 8:35 PM EDT): stable Assessment & Plan (05/13/2024 10:32 AM EDT): On insulin sliding scale Assessment & Plan (05/12/2024 12:02 PM EDT): On insulin sliding scale Assessment & Plan (05/11/2024 5:59 PM EDT): On insulin sliding scale Assessment & Plan (05/10/2024 5:47 PM EDT): Start insulin sliding scale Assessment & Plan (04/30/2024 8:24 AM EDT): stable Assessment & Plan (03/16/2024 12:53 PM EST): stable Assessment & Plan (03/13/2024 12:48 PM EST): Basal + correction Hyperlipidemia associated with type 2 diabetes sylwia viera 08/12/2015 Assessment & Plan (05/13/2024 10:32 AM EDT): Continue Crestor 40 mg daily. Assessment & Plan (05/12/2024 12:02 PM EDT): Continue Crestor 40 mg daily. Assessment & Plan (05/11/2024 5:59 PM EDT): Continue Crestor 40 mg daily. Assessment & Plan (05/10/2024 5:47 PM EDT): Resume Crestor 40 mg daily. 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 GERD (gastroesophageal reflux disease) 4 Assessment & Plan (05/13/2024 10:32 AM EDT): On Protonix 40 mg twice daily Assessment & Plan (05/12/2024 12:02 PM EDT): On Protonix 40 mg twice daily Assessment & Plan (05/11/2024 5:59 PM EDT): On Protonix 40 mg twice daily Assessment & Plan (05/10/2024 5:47 PM EDT): Protonix 40 g twice daily DDD (degenerative disc disease), lumbar 05/20/19 13 Chronic back pain greater than 3 months duration 05/19/2012 Overview (05/19/2012): History of back surgery Hypertension associated with diabetes 06/22/2011 Assessment & Plan (05/28/2024 8:35 PM EDT): stable Assessment & Plan (04/30/2024 8:24 AM EDT): stable Assessment & Plan (03/13/2024 12:48 PM EST): BB decreased Assessment & Plan (02/02/2024 12:58 PM EST): Resume home Toprol-XL/Imdur, follow BP, follow orthostatics Rheumatoid arthritis involving multiple sites Assessment & Plan (03/16/2024 12:53 PM EST): stable Orders: AMB REFERRAL TO SPINE CENTER Assessment & Plan (03/13/2024 12:48 PM EST): OP f/u Assessment & Plan (02/02/2024 12:58 PM EST): Not on treatment 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 Tobacco use Assessment & Plan (02/02/2024 12:58 PM EST): Counseled Nonrheumatic mitral valve regurgitation Cardiac/pericardial tamponade Resolved Problems Problem Noted Date Diagnosed Date Resolved Date Acute chest pain 09/07/2021 01/23/2022 Chest pain 07/28/2021 01/23/2022 Hypercalcemia 06/30/2021 01/23/2022 Atrial fibrillation with RVR 02/04/2019 02/13/2019 Acute pulmonary edema 02/04/20192019 Acute decompensated heart failure 02/04/2019 02/13/2019 Pneumonia of right lower lob e due to infectious organism 02/03/2019 01/23/2022 Pericholecystic abscess 02/03/201901/07 Preop cardiovascular exam 02/01/2019 Dilated aortic root 02/01/2019 02/12/19 20 Overview (02/12/2019): Duplicate - already on problem list Acute calculous cholecystitis 02/01/2019 01/23/2022 Calculus of gallbladder with out cholecystitis without obstruction 01/30/2019 01/23/2022 Encounter for long-term (cur rent) use of high-risk medication 01/19/2019 01/23/2022 Muscle spasm 01/19/2019 01/23/2022 Altered mental status, unspecified 10/22/2017 11/01/2017 RIGOBERTO (acute kidney injury) 10/22/2017 Acute cystitis with hematuria 10/22/2017 11/01/2017 Unresponsiveness 10/22/2017 11/01/2017 COPD, mild 08/07/2015 08/07/2015 Pneumothorax on left 08/23/2014 022 Acute bronchitis due to Rhinovirus 08/27/2015 Gastritis 01/23/2022 NSTEMI (non-ST elevated myoc ardial infarction) 01/23/2022 Encounters Date Type Department Care Team Description 07/05/2024 Patient Outreach [facility] [address] [place] [address] Missy Wright CPhT Medication Management (Wind Tunnel Mechanic Insurance Agency Manager: packaging materials inspector [phone]/) 06/08/2024 Patient Outreach [facility] [address] [facility] [place] [address] Nery Mccartney, RN CM- Longitudinal Graduation 06/06/[address] [address] Irma Briceño, Slope Runner Other (Multiple No Shows) 05/31/2024 Patient Outreach [facility] [address] [place] [address] Nery Mccartney, RN CM- Telephonic Outreach; CM- Longitudinal Continued 05/29/2024 Refill [facility] [address] [facility] [place] [address] Mila Lange MD Medication Refill 05/24/2024 1:30 PM EDT Office Visit [facility] [address] [facility] [place] [address] Mila Lange MD Chronic diastolic congestive heart failure (HCC) (Primary Dx); Screening for colon cancer; Migraine without aura and with status migrainosus, not intractable; COPD, severe (HCC); Type 2 diabetes mellitus with hyperglycemia, with long-term current use of insulin (HCC); Hypertension associated with diabetes (HCC); Lumbosacral spondylosis without myelopathy; Rheumatoid arthritis, involving unspecified site, unspecified whether rheumatoid factor present (HCC); Colitis. 05/14/2024 Patient Outreach [facility] [address] Appointment [place] [address] Michaela Gamboa RN Hospital Follow Up; Care Transition; Care Management - Chart Review 05/10/2024 12:28 PM EDT - 05/13/2024 2:40 PM EDT Hospital Encounter [facility] [address] [place] [address] Gavin Batista MD Moise, Ephese, MD Colitis (Primary Dx); Hypotension due to hypovolemia Discharge Disposition: Home or Self Care 05/10/2024 Travel 05/07/2024 Patient Outreach [facility] [address] [place] [address] Nery Mccartney RN CM- Telephonic Outreach; CM- Longitudinal Continued 04/30/2024 Patient Outreach [facility] [address] [place] [place] [address] Nery Mccartney RN CM- Telephonic Outreach; CM- Longitudinal Continued 04/26/2024 12:53 PM EDT - 04/26/2024 11:59 PM EDT Hospital Encounter [facility] [address] [facility] [address] 4[address] [place] [address] Ave Carvalho APRN Lumbar spondylosis Discharge Disposition: Home or Self Care 04/25/2024 9:00 AM EDT Office Visit [facility] [address] [place] [place] [address] Mila Lange MD Migraine without aura and with status migrainosus, not intractable (Primary Dx); Type 2 diabetes mellitus with hyperglycemia, with long-term current use of insulin (HCC); COPD, severe (HCC); Hypertension associated with diabetes (HCC); Lumbosacral spondylosis without myelopathy; Chronic diastolic congestive heart failure (HCC) 04/24/2024 Patient Outreach [facility] [address] Appointment [place] [address] Jannet Carranza RN Hospital Follow Up 04/24/2024 Refill [facility] [address] [place] [address] Mila Lange MD Medication Refill 04/20/2024 4:24 PM EDT - 04/23/2024 8:25 PM EDT Hospital Encounter [place] [address] Vincent Whyte Jr., MD Discharge Disposition: Home or Self Care 04/20/2024 3:05 AM EDT - 04/20/2024 3:19 PM EDT [facility] [address] [place] [address] Chaz Maier MD Wyenandt, Robert L Jr., MD Alcoholic intoxication without complication (Primary Dx); Syncope and collapse; Chest pain, unspecified type; Chronic bilateral low back pain, unspecified whether sciatica present Discharge Disposition: Short Term Hospital 04/20/2024 Travel from Last 3 Months Immunizations Immunization Administration Dates Next Due Influenza Vaccine Quadrivalent 11/01/2017,2017 Influenza Vaccine Quadrivalent PF 11/15/2014 Influenza Virus Vaccine Quad rivalant, Flublok 02/05/2019(Deferred: Other - pt already recieved flu shot- see APR record),02/04/2019 Pneumococcal Conjugate Vacci ne 20 Valent 09/17/2022 Pneumococcal Polysaccharide 23 Valent 08/25/2014 TST,Unspecified Formulation 11/24/2023, Tdap 10/26/2021 Surgical History Surgery Date Site/Laterality Comments BACK SURGERY 02/07/2003 - 02/07/2004 THORACOSCOPY 08/26/2014 Left LEFT THORACOSCOPY RESECTION OF BLEBS with pleuradisis; Surgeon: Frederick Holland MD; Location: [facility]; Service: General LUNG SURGERY 2010, 2014 2010 right spontantaneous pneumothorax. 2014 stapling of blebs both times with Dr. Holland LAMINECTOMY 09/08/2016 Back/N/A THORACIC LAMINECTOMY PLACEMENT PERMANENT SPINAL CORD STIMULATOR; Surgeon: Cornelia De Leon MD; Location: [facility]; Service: Neurosurgery Medical devices from this surgery are in the Medical Devices section. CHOLECYSTECTOMY, LAPAROSCOPIC 02/01/2019 N/A LAPAROSCOPIC CHOLECYSTECTOMY; Surgeon: Frederick Holland MD; Location: [facility]; Service: General CORONARY PERCUTANEOUS INTERVENTION(PCI) 07/31/2021 N/A CORONARY PERCUTANEOUS INTERVENTION (PCI) [[id number]]; Surgeon: Chaz Moya MD; Location: [facility]; Service: Cardiac Medical devices from this surgery are in the Medical Devices section. CT GUIDED NEEDLE PLACEMENT 11/15/2023 CT GUIDED NEEDLE PLACEMENT 11/15/2023 Vicky Perez MD [facility] IR 2 LEVEL BILATERAL MEDIAL BRANCH BLOCK LUM SAC 04/26/2024 IR 2 LEVEL BILATERAL MEDIAL BRANCH BLOCK LUM SAC 04/26/2024 Jordi Epps MD [facility] Medical History Medical History Date Comments Hypertension Collapsed lung Back pain Urge incontinence Hyperlipidemia COPD (chronic obstructive pu lmonary disease) ([facility]) inhalers. O2 @ 2l/nc @ HS Blood circulation, collateral fe et/ankles swell, takes Lasix Heartburn Arthritis Neuromuscular disorder (HCC) num bness and tingling left leg related to back issues Prostate disorder Diabetes mellitus (HCC) type 2 t imes 6 months NIDDM Tobacco use Family History Medical History Relation Name Comments Diabetes Father Anesth Problems Neg Hx Relation Name Status Comments Father Alive Mother Alive Social History Tobacco Use Types Packs/Day Years [...] alcohol) pt reports drinking 4 shots of [employer] [facility] Answer Date Recorded In the past 12 months has th e electric, gas, oil, or water company threatened to shut off services in your home? No 05/11/2024 Overall Financial Resource Strain (CARDIA) Answe r Date Recorded How hard is it for you to pa y for the very basics like food, housing, medical care, and heating? Not very hard 05/11/2024 PHQ-2 Answer Date Recorded PHQ-2 Total Score 0 05/11/2024 [facility] - Occupational Stress [...] things needed for daily living? No 01/12/2023 [facility] IP Transportation Answer D [...] on file Sexual Orientation Not on file Obstetrics History Last Filed Vital Signs Vital Sign Reading Time Taken Comments Blood Pressure 124/80 05/24/2024 1:28 PM EDT Pulse 92 05/13/2024 1:08 PM EDT Temperature 36.7 C (98.1 F) 05/24/2024 1:28 PM EDT Respiratory Rate 16 05/13/2024 8:04 AM EDT Oxygen Saturation 98% 05/13/2024 8:04 AM EDT Inhaled Oxygen Concentration - - Weight 96.6 kg (213 lb) 05/24/2024 1:28 PM EDT Height 182.9 cm (6') 05/24/2024 1:28 PM EDT Body Mass Index 28.89 05/24/2024 1:28 PM EDT Plan of Treatment Health Maintenance Due Date Last Done Comments Cologuard 08/10/2003 Colon Cancer Screening 08/10/2003 Colonoscopy 08/10/2003 FIT 08/10/2003 Sigmoidoscopy 08/10/2003 Virtual Colonography 08/10/2003 Zoster (1 of 2) 2008 RSV or 60+ (1 - Ris k 60-74 years 1-dose series) 2018 AAA Screening 08/10/2023 COVID-19 Vaccine (1 - 2023-2 5 season) 2023 Wellness Exam Medicare 10/06/2024 10/06/2023 Influenza Vaccine (Season Ended) 2024 02/04/2019, 11/01/2017, 03/25/2017, Additional history exists Hemoglobin A1c 10/11/2024 04/10/2024, 01/07, 11/07/2023, Additional history exists Microalbuminuria 01/18/2025 01/19/2024, , 02/13/2019, Additional history exists Lipids 04/10/2025 04/10/2024, 01/07, 05/09/2023, Additional history exists Low Dose Lung Cancer Screening 05/10/2025 0 05/10/2024, 05/07/2023, 01/11/2023, Additional history exists Diabetic Eye Exam 01/18/2026 01/19/2024, 09/18/2018 DTaP/TDaP/Td (2 - Td or Tdap) 10/27/2031 10/26/2021 Hepatitis C Screening Completed 04/10/2019, 017 Pneumococcal Vaccine 50+ Completed 09/17/2022, 08/07 Hepatitis B Vaccine Aged Out No longe r eligible based on patient's age to complete this topic Meningococcal B Vaccine Aged Out No l onger eligible based on patient's age to complete this topic Goals Goal Patient Goal Type Associated Problems [...] General Not on track( 3:19 PM EST) Nery Waters RN Stay Tobacco Free Lifestyle Not on track( 12:04 PM EST) No Nyasia Ruelas RMA LDL CALC < 100 Result Component 95(04/10/2024 1:37 PM EST) Nery Waters RN HEMOGLOBIN A1C < 7.0 Result Component 7.2( 1:37 PM EST) No Mila Lange MD Medical Devices Implanted Type Area Dry Press Operator Helper Device Identifier Shelf Expiration Date Model / Serial / Lot Kit Lead Surgical Artisan 2 X 8 70cm - [id number] Implanted:Qty: 1 on 09/08/2016 by Cornelia De Leon MD at [facility] N/A: Spine Thoracic [employer] 05/08/2018 [id number] / [id number] / [id number] Kitgenerator Pulse Implantable Mri Montage Precision - [id number] Implanted:Qty: 1 on 09/08/2016 by Cornelia De Leon MD at [facility] N/A: Back [employer] 08/04/2018 [id number] / [id number] / [id number] 3.5mm X 32mm Synergy Stent - [id number] Implanted:Qty: 1 on 07/31/2021 by Chaz Moya MD at [facility] N/A: LAD [employer]CARDIAC RHYTHM MGMT [id number] 09/12/2021 [id number] / / [id number] 3.0mm X 20mm Synergy Stent - [id number] Implanted:Qty: 1 on 07/31/2021 by Chaz Moya MD at [facility] N/A: Ramus [employer] MGMT [id number] 06/17/2022 [id number] / / [id number] Procedures Procedure Name Priority Date/Time Associated Diagnosis Comments GLUCOSE METER POC Routine 05/13/2024 11: 47 AM EDT GLUCOSE METER POC Routine 05/13/2024 7:4 4 AM EDT ECG AND WAVEFORMS - TELEMETRY Routine 05/13/2024 7:30 AM EDT BASIC METABOLIC PANEL Early AM 05/13/2024 5:28 AM EDT CBC WITH DIFF Early AM 05/13/2024 5:28 AM EDT GLUCOSE METER POC Routine 05/12/2024 9:4 9 PM EDT ECG AND WAVEFORMS - TELEMETRY Routine 05/12/2024 7:00 PM EDT GLUCOSE METER POC Routine 05/12/2024 4:5 3 PM EDT POTASSIUM REPEAT Routine 05/12/2024 12:5 5 PM EDT GLUCOSE METER POC Routine 05/12/2024 12: 29 PM EDT BASIC METABOLIC PANEL Early AM 05/12/2024 9:33 AM EDT CBC WITH DIFF Early AM 05/12/2024 9:33 AM EDT GLUCOSE METER POC Routine 05/12/2024 9:0 3 AM EDT ECG AND WAVEFORMS - TELEMETRY Routine 05/12/2024 7:00 AM EDT GLUCOSE METER POC Routine 05/11/2024 9:3 6 PM EDT ECG AND WAVEFORMS - TELEMETRY Routine 05/11/2024 8:26 PM EDT GLUCOSE METER POC Routine 05/11/2024 6:1 2 PM EDT GLUCOSE METER POC Routine 05/11/2024 11: 40 AM EDT SCANNED EKG 05/11/2024 9:51 AM EDT URINALYSIS REFLEX STAT 05/11/2024 8:3 2 AM EDT UA W/REFLEX TO CULTURE STAT 8:32 AM EDT EXTRA WALDEN URINE CX STAT 05/11/2024 8 :32 AM EDT GLUCOSE METER POC Routine 05/11/2024 7:4 2 AM EDT ECG AND WAVEFORMS - TELEMETRY Routine 05/11/2024 7:00 AM EDT GLUCOSE METER POC Routine 05/10/2024 10: 21 PM EDT ECG AND WAVEFORMS - TELEMETRY Routine 05/10/2024 8:27 PM EDT ECG AND WAVEFORMS - TELEMETRY Routine 05/10/2024 6:15 PM EDT REPEAT LACTIC ACID STAT 05/10/2024 4: 48 PM EDT REPEAT LACTIC ACID STAT 05/10/2024 3: 02 PM EDT TROPONIN-T HIGH SENSITIVITY 2HR Timed 05/10/2024 3:02 PM EDT BLOOD CULTURE (NO STAIN) STAT 05/10/2024 3:02 PM EDT BLOOD CULTURE (NO STAIN) STAT 05/10/2024 3:02 PM EDT ADMIT Routine 05/10/2024 1:51 PM EDT LACTIC ACID STAT 05/10/2024 1:[address] ANGIOGRAM CHEST ABDOMEN W CONTRAST STAT 05/10/2024 12:59 PM EDT BB HISTORY CHECK STAT 05/10/2024 12:3 8 PM EDT ANTIBODY SCREEN IGG STAT 05/10/2024 1 2:38 PM EDT ABORH STAT 05/10/2024 12:38 PM EDT TYPE AND SCREEN STAT 05/10/2024 12:38 PM EDT ALCOHOL MEDICAL Add-On 05/10/2024 12:37 PM EDT EXTRA LIGHT BLUE Routine 05/10/2024 12:3 7 PM EDT EXTRA TUBES PANEL Routine 05/10/2024 12: 37 PM EDT HEPATIC FUNCTION PANEL STAT 12:37 PM EDT LIPASE LEVEL STAT 05/10/2024 12:37 PM EDT PROCALCITONIN STAT 05/10/2024 12:37 PM EDT NT PROBNP STAT 05/10/2024 12:37 PM EDT TROPONIN-T HIGH SENSITIVITY BASELINE W/ REFLEX STAT 05/10/2024 12:37 PM EDT BASIC METABOLIC PANEL STAT 05/10/2024 12:37 PM EDT CBC STAT 05/10/2024 12:37 PM EDT EK EKG 12 LEAD STAT 05/10/2024 12:28 PM EDT IR 2 LEVEL BILATERAL MEDIAL BRANCH BLOCK LUM SAC Routine 04/26/2024 1:26 PM EDT Lumbar spondylosis SCANNED RHYTHM STRIPS 04/24/2024 8:57 AM EDT GLUCOSE METER POC Routine 04/23/2024 2:1 9 PM EDT CBC Early AM 04/23/2024 11:27 AM EDT COMPREHENSIVE METABOLIC PANEL Early AM 04/23/2024 11:27 AM EDT GLUCOSE METER POC Routine 04/23/2024 8:1 4 AM EDT ECG AND WAVEFORMS - TELEMETRY Routine 04/23/2024 7:02 AM EDT GLUCOSE METER POC Routine 04/22/2024 11: 17 PM EDT ECG AND WAVEFORMS - TELEMETRY Routine 04/22/2024 7:22 PM EDT GLUCOSE METER POC Routine 04/22/2024 5:5 6 PM EDT EC ECHOCARDIOGRAM LIMITED W BUBBLES Routine 04/22/2024 3:08 PM EDT GLUCOSE METER POC Routine 04/22/2024 12: 00 PM EDT GLUCOSE METER POC Routine 04/22/2024 9:4 5 AM EDT ECG AND WAVEFORMS - TELEMETRY Routine 04/22/2024 7:00 AM EDT CBC Early AM 04/22/2024 6:33 AM EDT COMPREHENSIVE METABOLIC PANEL Early AM 04/22/2024 6:33 AM EDT IP CONSULT TO PASTORAL CARE Routine 04/21/2024 11:34 PM EDT IP CONSULT TO SOCIAL WORK Routine 04/21/2024 11:33 PM EDT GLUCOSE METER POC Routine 04/21/2024 9:5 6 PM EDT ECG AND WAVEFORMS - TELEMETRY Routine 04/21/2024 7:30 PM EDT GLUCOSE METER POC Routine 04/21/2024 5:2 2 PM EDT GLUCOSE METER POC Routine 04/21/2024 2:4 7 PM EDT HEPATIC FUNCTION PANEL Routine 9:53 AM EDT BASIC METABOLIC PANEL Routine 04/21/2024 9:53 AM EDT CBC Routine 04/21/2024 9:53 AM EDT GLUCOSE METER POC Routine 04/21/2024 8:2 6 AM EDT ECG AND WAVEFORMS - TELEMETRY Routine 04/21/2024 7:00 AM EDT GLUCOSE METER POC Routine 04/20/2024 8:5 0 PM EDT ECG AND WAVEFORMS - TELEMETRY Routine 04/20/2024 7:23 PM EDT GLUCOSE METER POC Routine 04/20/2024 7:1 5 PM EDT CHEMICAL DEP COUNSELOR CONSULT Routine 04/20/2024 5:49 PM EDT ECG AND WAVEFORMS - TELEMETRY Routine 04/20/2024 5:30 PM EDT ADMIT Routine 04/20/2024 4:36 PM EDT URINALYSIS REFLEX Routine 04/20/2024 1:4 1 PM EDT UA W/REFLEX TO CULTURE Routine 1:41 PM EDT EXTRA [place] URINE CX Routine 04/20/2024 1 :41 PM EDT GLUCOSE METER POC Routine 04/20/2024 1:1 9 PM EDT GLUCOSE METER POC Routine 04/20/2024 8:5 3 AM EDT TROPONIN-T HIGH SENSITIVITY 2HR Timed 04/20/2024 5:31 AM EDT ADMIT Routine 04/20/2024 4:52 AM EDT XR CHEST AP PORTABLE STAT 04/20/2024 3:34 AM EDT ALCOHOL MEDICAL STAT 04/20/2024 3:27 AM EDT TROPONIN-T HIGH SENSITIVITY BASELINE W/ REFLEX STAT 04/20/2024 3:27 AM EDT LIPASE LEVEL STAT 04/20/2024 3:27 AM EDT COMPREHENSIVE METABOLIC PANEL STAT 04/20/2024 3:27 AM EDT CBC WITH DIFF STAT 04/20/2024 3:27 AM EDT EK EKG 12 LEAD STAT 04/20/2024 3:09 AM EDT LIPID SCREEN Routine 04/10/2024 1:37 PM EST Coronary artery disease due to calcified coronary lesion Type 2 diabetes mellitus with hyperglycemia, without long-term current use of insulin (HCC) Rheumatoid arthritis, involving unspecified site, unspecified whether rheumatoid factor present (HCC) History of heart artery stent PAF (paroxysmal atrial fibrillation) (HCC) Presence of stent in LAD coronary artery Screening for AAA (abdominal aortic aneurysm) HEMOGLOBIN A1C Routine 04/10/2024 1:37 PM EST Coronary artery disease due to calcified coronary lesion Type 2 diabetes mellitus with hyperglycemia, without long-term current use of insulin (HCC) Rheumatoid arthritis, involving unspecified site, unspecified whether rheumatoid factor present (HCC) History of heart artery stent PAF (paroxysmal atrial fibrillation) (HCC) Presence of stent in LAD coronary artery Screening for AAA (abdominal aortic aneurysm) MICROALBUMIN/CREATININ E RATIO URINE Routine 01/19/2024 3:09 PM EST Type 2 diabetes mellitus without complication, unspecified whether 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 [facility] Glucose Meter POC 132(H) 70 - 100 mg/dL 05/13/2024 11:48 AM EDT [facility] Sample Type Capillary 05/13/2024 11:48 AM EDT [facility] Patient Status Non-Critical Patient 05/13/2024 11:48 AM EDT [facility] Blood BLOOD SPECIMEN / Unknown 05/13/2024 11:47 AM EDT 05/13/2024 11:48 AM EDT Mami Ulloa MD POINT OF CARE TEST ORDERABLES Fi nal Result [facility] [address] [place] [address] * ECG AND WAVEFORMS - TELEMETRY (05/13/2024 7:30 AM EDT) Only the most recent of12 resultswithin the time period is included. [facility] ECG INTERPRET NSR [facility] 05/13/2024 7:30 AM EDT Narrative [facility] - 05/13/2024 7:49 AM EDT TRO/AM ROUTINE- SR IVCD RI 0.16 QRS 0.15 RR 1.07 QT 0.48 QTc 0.46 See Clinical Report link for waveform capture us Unknown Provider POINT OF CARE CARDIOLOGY Final Result [facility] [address] [place], [place] [id number] * CBC WITH DIFF (05/13/2024 5:28 AM EDT) Only the most recent of3 resultswithin the time period is included. [facility] WBC 7.3 3.7 - 10.3 x10(3)/mcL 05/13/2024 6:22 AM EDT [facility] RBC 4.68 4.60 - 6.10 x10(6)/mcL 05/13/2024 6:22 AM EDT [facility] Hgb 14.7 13.7 - 17.5 g/dL 05/13/2024 6:22 AM EDT [facility] Hct 41.4 40.0 - 51.0 % 05/13/2024 6:22 AM EDT [facility] MCV 88.5 80.0 - 100.0 fL 05/13/2024 6:22 AM EDT [facility] MCH 31.4 26.0 - 34.0 pg 05/13/2024 6:22 AM EDT [facility] MCHC 35.5 30.7 - 35.5 g/dL 05/13/2024 6:22 AM EDT [facility] RDW 12.7 <=14.9 % 05/13/2024 6:22 AM EDT [facility] Platelet 162 155 - 369 x10(3)/mcL 05/13/2024 6:22 AM EDT [facility] MPV 10.3 8.8 - 12.5 fL 05/13/2024 6:22 AM EDT [facility] Neut Percent 40.9 % 05/13/2024 6:22 AM EDT [facility] Comment:Neutrophils equals s egs plus bands Imm Gran% 0.4 % 05/13/2024 6:22 AM EDT [facility] Comment:Automated count of m etamyelocytes, myelocytes and promyelocytes. Lymph Percent 48.2 % 05/13/2024 6:22 AM EDT [facility] [place] Percent 7.1 % 05/13/2024 6:22 AM EDT [facility] Eos Percent 2.6 % 05/13/2024 6:22 AM EDT [facility] Baso Percent 0.8 % 05/13/2024 6:22 AM EDT [facility] Neut # 3.0 1.6 - 6.1 x10(3)/[facility] 05/13/2024 6:22 AM EDT [facility] Comment:Neutrophils equals s egs plus bands IMMGRAN# 0.0 0.0 - 0.1 x10(3)/mcL 05/13/2024 6:22 AM EDT [facility] Comment:Automated count of m etamyelocytes, myelocytes and promyelocytes. An absolute IG <0.1 is reported as 0.0. Lymph # 3.5 1.2 - 3.9 x10(3)/mcL 05/13/2024 6:22 AM EDT [facility] [place] # 0.5 0.3 - 0.9 x10(3)/mcL 05/13/2024 6:22 AM EDT [facility] Eos# 0.2 0.0 - 0.5 x10(3)/[facility] 05/13/2024 6:22 AM EDT [facility] Baso # 0.1 0.0 - 0.1 x10(3)/[facility] 05/13/2024 6:22 AM EDT [facility] Blood VENOUS BLOOD / Unknown Venipuncture / Unknown 05/13/2024 5:28 AM EDT 05/13/2024 6:16 AM EDT us Mami Ulloa MD HEMATOLOGY ORDERABLES Final Resu lt [facility] [address] [place] [address] * (ABNORMAL) BASIC METABOLIC PANEL (05/13/2024 5:28 AM EDT) Only the most recent of4 resultswithin the time period is included. Sodium 140 136 - 145 mmol/L 05/13/2024 6:43 AM EDT [facility] Potassium 3.7 3.5 - 5.0 mmol/L 05/13/2024 6:43 AM EDT [facility] Chloride 108(H) 98 - 107 mmol/L 05/13/2024 6:43 AM EDT [facility] Total CO2 23 22 - 29 mmol/L 05/13/2024 6:43 AM EDT [facility] Anion Gap 9 7 - 16 mmol/L 05/13/2024 6:43 AM EDT [facility] Calcium 8.6(L) 8.8 - 10.4 mg/dL 05/13/2024 6:43 AM EDT [facility] Glucose Lvl 94 70 - 99 mg/dL 05/13/2024 6:43 AM EDT [facility] BUN 8 8 - 23 mg/dL 05/13/2024 6:43 AM EDT [facility] Creatinine 0.68 0.67 - 1.30 mg/dL 05/13/2024 6:43 AM EDT [facility] eGFR (CKD-EPIcr 2020) 103 >=60 mL/min/1.7 3 m2 05/13/2024 6:43 AM EDT [facility] Comment:Estimated GFR was ca lculated using the CKD-EPIcr (2020) equation refit without race. The equation is recommended by the National Kid[employer] - [place] [employer] of Nephrology Task Force. Blood VENOUS BLOOD / Unknown Venipuncture / Unknown 05/13/2024 5:28 AM EDT 05/13/2024 6:15 AM EDT us Mami Ulloa MD CHEMISTRY ORDERABLES Final Resul t [facility] [address] [place] [address] * POTASSIUM REPEAT (05/12/2024 12:55 PM EDT) Pathologist [facility] Potassium 3.8 3.5 - 5.0 mmol/L 05/12/2024 1:23 PM EDT [facility] Blood VENOUS BLOOD / Unknown Venipuncture / Unknown 05/12/2024 12:55 PM EDT 05/12/2024 1:07 PM EDT us Mami Ulloa MD CHEMISTRY ORDERABLES Final Resul t [facility] [address] [place] [address] * SCANNED EKG (05/11/2024 9:51 AM EDT) Anatomical Region Laterality Modality Other 05/11/2024 9:51 AM EDT us Unknown Provider IMG ECG ORDERABLES Final Result * URINALYSIS REFLEX (05/11/2024 8:32 AM EDT) Only the most recent of2 resultswithin the time period is included. [facility] UA Color Light Yellow 05/11/2024 8:40 AM EDT [facility] UA Appear Clear Clear 05/11/2024 8:40 AM EDT [facility] UA Glucose Negative Negative mg/dL 05/11/2024 8:40 AM EDT [facility] UA Ketones Negative Negative mg/dL 05/11/2024 8:40 AM EDT [facility] UA Blood Negative Negative 05/11/2024 8:40 AM EDT [facility] UA pH 6.0 5.0 - 8.0 pH 05/11/2024 8:40 AM EDT [facility] UA Protein Negative Negative mg/dL 05/11/2024 8:40 AM EDT [facility] UA Urobilinogen Normal <=1 mg/dL 8:40 AM EDT [facility] UA Bili Negative Negative 05/11/2024 8:40 AM EDT [facility] UA Nitrite Negative Negative 05/11/2024 8:40 AM EDT [facility] UA Leuk Est Negative Negative 05/11/2024 8:40 AM EDT [facility] UA Spec Grav 1.020 1.001 - 1.035 no units 05/11/2024 8:40 AM EDT [facility] Comment:Reference range jordon d for random specimens only. Urine STRUCTURE OF URINARY TRACT PROPER / Unknown 05/11/2024 8:32 AM EDT 05/11/2024 8:36 AM EDT Gavin Batista MD URINE ORDERABLES Final Resul t Performing Organization Address [facility] de Phone Number [facility] [address] [place] [address] * EXTRA [place]DEN URINE CX (05/11/2024 8:32 AM EDT) Only the most recent of2 resultswithin the time period is included. Urine STRUCTURE OF URINARY TRACT PROPER / Unknown 05/11/2024 8:32 AM EDT 05/11/2024 8:36 AM EDT Gavin Batista MD MICROBIOLOGY - GENERAL ORDER HORACIO Final Result Performing Organization Address [facility] Phone Number [facility] [address] [place] [address] * REPEAT LACTIC ACID (05/10/2024 4:48 PM EDT) Only the most recent of2 resultswithin the time period is included. Lactic Acid 1.2 0.5 - 1.9 mmol/L 05/10/2024 5:11 PM EDT [facility] Blood VENOUS BLOOD / Unknown Venipuncture / Unknown 05/10/2024 4:48 PM EDT 05/10/2024 4:53 PM EDT Gavin Batista MD CHEMISTRY ORDERABLES Final R esult Performing Organization Address [facility]/State/ZIP Co de Phone Number [facility] [address] [place] [address] * TROPONIN-T HIGH SENSITIVITY 2HR (05/10/2024 3:02 PM EDT) Only the most recent of2 resultswithin the time period is included. cr-kDmiqjemf-G 2HR 9 <22 ng/L 05/10/2024 3:39 PM EDT [facility] Comment:See the website [employer] for rule out ME care pathway, conditions other than AMI that can cause elevated hs cTnT, and comparison of values from the 4th and 5th generation Ashley tests. https://askmayoexpert.[email or web address].org/topic/clinical-answers/gnt-46968914/cpm-[email or web address] 45536 hs-cTnT 2Hr Delta from Baseline -3 <4 ng/L 05/10/2024 3:39 PM EDT [facility] Blood VENOUS BLOOD / Unknown Venipuncture / Unknown 05/10/2024 3:02 PM EDT 05/10/2024 3:12 PM EDT Narrative [facility] - 05/10/2024 3:39 PM EDT Ingestion of arelis doses of biotin (>5 mg/day) taken within 8 hours of drawing blood sample can interfere with this immunoassay test. us Gavin Batista MD CHEMISTRY ORDERABLES Final R esult [facility] [address] [place] [address] * BLOOD CULTURE (NO STAIN) (05/10/2024 3:02 PM EDT) Only the most recent of2 resultswithin the time period is included. Culture Result No Growth at 120 hours. BLOOD CULTURE (NO STAIN) 05/15/2024 9:00 PM EDT [facility] [employer] Blood VENOUS BLOOD / Unknown Venipuncture / Unknown 05/10/2024 3:02 PM EDT 05/10/2024 3:14 PM EDT us Gavin Batista MD MICROBIOLOGY - GENERAL ORDER HORACIO Final Result [facility] [email or web address], [facility] [address] [facility] [address], [place] [address] * (ABNORMAL) LACTIC ACID (05/10/2024 1:12 PM EDT) Lactic Acid 2.6(H) 0.5 - 1.9 mmol/L 05/10/2024 1:34 PM EDT [facility] Blood VENOUS BLOOD / Unknown Venipuncture / Unknown 05/10/2024 1:12 PM EDT 05/10/2024 1:16 PM EDT Gavin Batista MD CHEMISTRY ORDERABLES Final R esult Performing Organization Address [facility] Co de Phone Number [facility] [address] [place] [address] * CT ANGIOGRAM CHEST ABDOMEN W CONTRAST (05/10/2024 12:59 PM EDT) Anatomical Region Laterality Modality Abdomen, Chest Computed Tomogra phy 05/10/2024 12:5 9 PM EDT Impressions 05/10/2024 1:17 PM EDT 1. Dilation of the aortic root measuring up to 4.5 cm in caliber. 2. Otherwise, no thoracoabdominal aortic aneurysm or dissection. 3. No CT evidence of pulmonary thromboembolic disease. 4. Possible mild wall thickening versus under distended ascending and transverse colon. A mild, uncomplicated colitis is not excluded. 5. Additional chronic and incidental findings as described within the body of this report. - Note: Radiology results need to be interpreted within a comprehensive clinical context. If you have questions about the radiology report, please contact the office of the ordering clinician. Narrative 05/10/2024 1:[address] ANGIOGRAM CHEST ABDOMEN W CONTRAST 05/10/2024 12:59 PM CLINICAL HISTORY: -Chest Pain -severe chest, abd, back pain, ill appearing. COMPARISON: Portable chest x-ray 04/20/2024; CT pulmonary arteries with IV contrast 01/11/2023 PROCEDURE COMMENTS: Multidetector CT angiography of the region of interest. Isovue 370 IV contrast given as recorded in EPIC. Multiplanar reconstructions generated and reviewed, including 3D MIPS. Dose 1 : CT DLP Total : 1443.46 mGycm DLP Spiral Max : 1050.72 mGycm Maximum CTDI Vol : 18.51 mGy FINDINGS: FINDINGS CT ANGIOGRAPHY: Assessment of the aortic root and ascending thoracic aorta is mildly degraded by cardiac motion artifact. There does appear to the mild dilation of the aortic root measuring up to 4.5 cm in caliber. The thoracoabdominal aorta and iliac arteries are otherwise normal in caliber. No CT evidence of acute aortic pathology. Specifically, no evidence of intramural hematoma on the unenhanced images or dissection flap on postcontrast imaging. Standard aortic arch branch vessel pattern. Proximal branch vessels are patent. No CT evidence of pulmonary thromboembolic disease. Urinary arteries are normal in caliber. Cardiac size is normal. No pericardial effusion. Celiac axis, SMA, renal arteries (single right and single left), and MARIA VICTORIA are patent and normal caliber. Coronary artery calcification: Mild. Prior coronary arterial stenting noted. FINDINGS CT CHEST: SUPPORT DEVICES: None. LOWER CERVICAL REGION: Evaluation of the lower cervical region is unremarkable. LYMPH NODES: No axillary, mediastinal, or hilar lymphadenopathy. PLEURAL SPACES/DIAPHRAGM: No pleural effusion or pneumothorax. LUNGS: There is some dependent mucus debris within the rosemary. Otherwise, central airways are patent. Background mild emphysematous changes. Minimal bibasilar atelectasis. There are postoperative changes of blebectomy. Otherwise, no acute pulmonary process. No suspicious pulmonary nodule. UPPER GI TRACT: The esophagus is grossly unremarkable. BODY WALL: No acute osseous abnormality. No aggressive osseous lesion. Spinal stimulator device noted. FINDINGS CT ABDOMEN/PELVIS: LIVER: No suspicious liver lesion. Subcentimeter low-attenuation anterior left hepatic lobe focus (axial image 87) is too small to adequately characterize. In the absence of known primary malignancy, this is statistically benign. SPLEEN: Normal in size and without focal lesion. BILIARY TREE: Status post cholecystectomy. No biliary ductal dilatation. PANCREAS: Enhances homogeneously and is without focal lesion or ductal dilatation. Periampullary duodenal diverticulum noted. ADRENAL GLANDS: Left adrenal gland is unremarkable. 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 KIDNEYS: Enhance symmetrically. No hydronephrosis or suspicious renal lesion. LYMPH NODES: No abdominal or pelvic lymphadenopathy. PERITONEUM/MESENTERY/OMENTUM: No free fluid, fluid collection, or extraluminal gas. GI TRACT: Appendix is normal. No bowel obstruction. Possible mild wall thickening versus under distended ascending and transverse colon. Scattered colonic diverticulosis without findings of diverticulitis. PELVIC UROGENITAL STRUCTURES: Urinary bladder is mildly distended and otherwise unremarkable. Prostate gland is enlarged, measuring approximately 5.4 x 4.8 cm in maximum axial dimensions. Seminal vesicles are symmetric. BODY WALL: No acute osseous abnormality. No aggressive osseous lesion. Tiny noninflamed fat-containing bilateral inguinal hernias. Procedure Note Lex Lezama MD - 05/10/2024 CT ANGIOGRAM CHEST ABDOMEN W CONTRAST 05/10/2024 12:59 PM CLINICAL HISTORY: -Chest Pain -severe chest, abd, back pain, ill appearing. COMPARISON: Portable chest x-ray 04/20/2024; CT pulmonary arteries withIV contrast 01/11/2023 PROCEDURE COMMENTS: Multidetector CT angiography of the region ofinterest. Isovue 370 IV contrast given as recorded in EPIC. Multiplanarreconstructions generated and reviewed, including 3D MIPS. Dose 1 : CT DLP Total : 1443.46 mGycm DLP Spiral Max : 1050.72 mGycm Maximum CTDI Vol : 18.51 mGy FINDINGS: FINDINGS CT ANGIOGRAPHY: Assessment of the aortic root and ascending thoracic aorta is mildlydegraded by cardiac motion artifact. There does appear to the mild dilation of theaortic root measuring up to 4.5 cm in caliber. The thoracoabdominal aorta and iliac arteries are otherwise normal incaliber. No CT evidence of acute aortic pathology. Specifically, no evidence of intramural hematoma on the unenhanced images or dissection flap onpostcontrast imaging. Standard aortic arch branch vessel pattern. Proximal branchvessels are patent. No CT evidence of pulmonary thromboembolic disease. Urinaryarteries are normal in caliber. Cardiac size is normal. No pericardial effusion. Celiacaxis, SMA, renal arteries (single right and single left), and MARIA VICTORIA are patentand normal caliber. Coronary artery calcification: Mild. Prior coronary arterial stentingnoted. FINDINGS CT CHEST: SUPPORT DEVICES: None. LOWER CERVICAL REGION: Evaluation of the lower cervical region isunremarkable. LYMPH NODES: No axillary, mediastinal, or hilar lymphadenopathy. PLEURAL SPACES/DIAPHRAGM: No pleural effusion or pneumothorax. LUNGS: There is some dependent mucus debris within the rosemary.Otherwise, central airways are patent. Background mild emphysematous changes.Minimal bibasilar atelectasis. There are postoperative changes of blebectomy.Otherwise, no acute pulmonary process. No suspicious pulmonary nodule. UPPER GI TRACT: The esophagus is grossly unremarkable. BODY WALL: No acute osseous abnormality. No aggressive osseous lesion.Spinal stimulator device noted. FINDINGS CT ABDOMEN/PELVIS: LIVER: No suspicious liver lesion. Subcentimeter low-attenuation anteriorleft hepatic lobe focus (axial image 87) is too small to adequatelycharacterize. In the absence of known primary malignancy, this is statistically benign. SPLEEN: Normal in size and without focal lesion. BILIARY TREE: Status post cholecystectomy. No biliary ductal dilatation. PANCREAS: Enhances homogeneously and is without focal lesion or ductal dilatation. Periampullary duodenal diverticulum noted. ADRENAL GLANDS: Left adrenal gland is unremarkable. There is a tiny fat-containing right adrenal nodule measuring 1.0 cm compatible with abenign myolipoma. KIDNEYS: Enhance symmetrically. No hydronephrosis or suspicious renallesion. LYMPH NODES: No abdominal or pelvic lymphadenopathy. PERITONEUM/MESENTERY/OMENTUM: No free fluid, fluid collection, orextraluminal gas. GI TRACT: Appendix is normal. No bowel obstruction. Possible mild wall thickening versus under distended ascending and transverse colon.Scattered colonic diverticulosis without findings of diverticulitis. PELVIC UROGENITAL STRUCTURES: Urinary bladder is mildly distended andotherwise unremarkable. Prostate gland is enlarged, measuring approximately 5.4 x4.8 cm in maximum axial dimensions. Seminal vesicles are symmetric. BODY WALL: No acute osseous abnormality. No aggressive osseous lesion.Tiny noninflamed fat-containing bilateral inguinal hernias. IMPRESSION: 1. Dilation of the aortic root measuring up to 4.5 cm in caliber. 2. Otherwise, no thoracoabdominal aortic aneurysm or dissection. 3. No CT evidence of pulmonary thromboembolic disease. 4. Possible mild wall thickening versus under distended ascending and transverse colon. A mild, uncomplicated colitis is not excluded. 5. Additional chronic and incidental findings as described within thebody of this report. - Note: Radiology results need to be interpreted within a comprehensiveclinical context. If you have questions about the radiology report, please contactthe office of the ordering clinician. Result David Batista MD IMG CT ORDERABLES Final Resu lt * BB HISTORY CHECK (05/10/2024 12:38 PM EDT) BB HISTORY CHECK (1) No Previous History 05/10/2024 12:51 PM EDT [facility] BLOOD BANK Blood VENOUS BLOOD / Unknown Venipuncture / Unknown 05/10/2024 12:38 PM EDT 05/10/2024 12:41 PM EDT Result [facility] us Gavin Batista MD BLOOD BANK ORDERABLES Final Result Performing Organization Address [facility] Co de Phone Number [facility] BLOOD BANK [address] [place] [address] * ABORH (05/10/2024 12:38 PM EDT) ABORH Int B NEG 05/10/2024 1:3 7 PM EDT [facility] BLOOD BANK Blood VENOUS BLOOD / Unknown Venipuncture / Unknown 05/10/2024 12:38 PM EDT 05/10/2024 12:41 PM EDT Result [facility] us Gavin Batista MD BLOOD BANK ORDERABLES Final Result Performing Organization Address City/[facility]/ZIP Co de Phone Number [facility] BLOOD BANK [address] [place] [address] * ANTIBODY SCREEN IGG (05/10/2024 12:38 PM EDT) ABSC IgG Int Negative 05/10/2024 1:37 PM EDT [facility] BLOOD BANK Blood VENOUS BLOOD / Unknown Venipuncture / Unknown 05/10/2024 12:38 PM EDT 05/10/2024 12:41 PM EDT Result [facility] us Gavin Batista MD BLOOD BANK ORDERABLES Final Result Performing Organization Address [facility] Co de Phone Number [facility] BLOOD BANK [address] [place] [address] * TROPONIN-T HIGH SENSITIVITY BASELINE W/ REFLEX (05/10/2024 12:37 PM EDT) Only the most recent of2 resultswithin the time period is included. fl-[id number] 12 <22 ng/L 05/10/2024 1:10 PM EDT [facility] Comment:See the website belo w for rule out ME care pathway, conditions other than AMI that can cause elevated hs cTnT, and comparison of values from the 4th and 5th generation Ashley tests. https://askmayoexpert.[facility].org/topic/clinical-answers/[email or web address]/[email or web address] 17796 Blood VENOUS BLOOD / Unknown Venipuncture / Unknown 05/10/2024 12:37 PM EDT 05/10/2024 12:41 PM EDT Narrative [facility] - 05/10/2024 1:10 PM EDT Ingestion of arelis doses of biotin (>5 mg/day) taken within 8 hours of drawing blood sample can interfere with this immunoassay test. Gavin Batista MD CHEMISTRY ORDERABLES Final R esult Performing Organization Address [facility] Co de Phone Number [facility] [address] [place] [address] * EXTRA LIGHT BLUE (05/10/2024 12:37 PM EDT) Blood VENOUS BLOOD / Unknown Venipuncture / Unknown 05/10/2024 12:37 PM EDT 05/10/2024 12:43 PM EDT us Gavin Batista MD HEMATOLOGY ORDERABLES Final Result Performing Organization Address City/[facility] Co de Phone Number [facility] [address] [place] [address] * (ABNORMAL) CBC (05/10/2024 12:37 PM EDT) Only the most recent of4 resultswithin the time period is included. WBC 13.9(H) 3.7 - 10.3 x10(3)/mcL 05/10/2024 12:45 PM EDT [facility] RBC 5.36 4.60 - 6.10 x10(6)/mcL 05/10/2024 12:45 PM EDT [facility] Hgb 17.0 13.7 - 17.5 g/dL 05/10/2024 12:45 PM EDT [facility] Hct 48.3 40.0 - 51.0 % 05/10/2024 12:45 PM EDT [facility] MCV 90.1 80.0 - 100.0 fL 05/10/2024 12:45 PM EDT [facility] MCH 31.7 26.0 - 34.0 pg 05/10/2024 12:45 PM EDT [facility] MCHC 35.2 30.7 - 35.5 g/dL 05/10/2024 12:45 PM EDT [facility] RDW 13.2 <=14.9 % 05/10/2024 12:45 PM EDT [facility] Platelet 245 155 - 369 x10(3)/mcL 05/10/2024 12:45 PM EDT [facility] MPV 10.2 8.8 - 12.5 fL 05/10/2024 12:45 PM EDT [facility] Blood VENOUS BLOOD / Unknown Venipuncture / Unknown 05/10/2024 12:37 PM EDT 05/10/2024 12:41 PM EDT us Gavin Batista MD HEMATOLOGY ORDERABLES Final Result [facility] [address] [place] [address] * PROCALCITONIN (05/10/2024 12:37 PM EDT) Pathologist [facility] Procalcitonin 0.09 <=0.49 ng/mL 05/10/2024 1:15 PM EDT [facility] Blood VENOUS BLOOD / Unknown Venipuncture / Unknown 05/10/2024 12:37 PM EDT 05/10/2024 12:42 PM EDT Narrative [facility] - 05/10/2024 1:15 PM EDT Procalcitonin <0.50 ng/mL: Procalcitonin levels below 0.50 ng/mL on the first day of ICU admission represent a low risk for progression to severe sepsis and/or septic shock Procalcitonin >=0.50 ng/mL and <=2.00 ng/mL: If the procalcitonin measurement is performed shortly after the systemic infection process has started (usually less than 6 hours), this value may still be low. As various non-infectious conditions are known to induce procalcitonin as well, procalcitonin levels between 0.50 ng/mL and 2.00 ng/mL should be reviewed carefully to take into account the specific clinical background and condition(s) of the patient. Procalcitonin >2.00 ng/mL: Procalcitonin levels above 2.00 ng/mL on the first day of ICU admission represent a high risk for progression to severe sepsis and/or septic shock. us Gavin Batista MD CHEMISTRY ORDERABLES Final R esult [facility] [address] [place] [address] * (ABNORMAL) NT PROBNP (05/10/2024 12:37 PM EDT) NT Pro-BNP 287(H) <=229 pg/mL 05/10/2024 1:10 PM EDT [facility] Blood VENOUS BLOOD / Unknown Venipuncture / Unknown 05/10/2024 12:37 PM EDT 05/10/2024 12:41 PM EDT Narrative [facility] - 05/10/2024 1:10 PM EDT An NT pro-BNP level less than 300 pg/mL in any patient, regardless of age, effectively rules out acute CHF with a 99% negative predictive value. Ingestion of arelis doses of biotin (>5 mg/day) taken within 8 hours of drawing blood sample can interfere with this immunoassay test. Gavin Batista MD CHEMISTRY ORDERABLES Final [facility] Performing Organization Address City/[facility] Co de Phone Number [facility] [address] [place] [address] * LIPASE LEVEL (05/10/2024 12:37 PM EDT) Only the most recent of2 resultswithin the time period is included. [facility] Lipase Lvl 37 13 - 60 U/L 05/10/2024 1:10 PM EDT [facility] Blood VENOUS BLOOD / Unknown Venipuncture / Unknown 05/10/2024 12:37 PM EDT 05/10/2024 12:41 PM EDT Gavin Batista MD CHEMISTRY ORDERABLES Final [facility] Performing Organization Address [facility] Phone Number [facility] [address] [place] [address] * ALCOHOL MEDICAL (05/10/2024 12:37 PM EDT) Only the most recent of2 resultswithin the time period is included. [facility] Alcohol Medical <10 <=10 mg/dL 1:30 PM EDT [facility] Comment: 50-100 mg/dL - [place], slowing of reflexes, impaired visual acuity > 100 mg/dL - Depression of [employer] > 400 mg/dL - Fatalities reported Blood VENOUS BLOOD / Unknown Venipuncture / Unknown 05/10/2024 12:37 PM EDT 05/10/2024 12:41 PM EDT Gavin Batista MD CHEMISTRY ORDERABLES Final [facility] Performing Organization Address [facility] Co de Phone Number [facility] [address] [place] [address] * HEPATIC FUNCTION PANEL (05/10/2024 12:37 PM EDT) Only the most recent of2 resultswithin the time period is included. Total Protein 7.4 6.4 - 8.3 gm/dL 05/10/2024 1:10 PM EDT [facility] Albumin 4.6 3.2 - 4.6 gm/dL 05/10/2024 1:10 PM EDT [facility] Bili Direct <0.2 0.0 - 0.3 mg/dL 05/10/2024 1:10 PM EDT [facility] Bili Total 0.4 0.2 - 1.4 mg/dL 05/10/2024 1:10 PM EDT [facility] AST 28 <=40 U/L 05/10/2024 1:10 PM EDT [facility] ALT 39 <=41 U/L 05/10/2024 1:10 PM EDT [facility] Alk Phos 90 40 - 129 U/L 05/10/2024 1:10 PM EDT [facility] Blood VENOUS BLOOD / Unknown Venipuncture / Unknown 05/10/2024 12:37 PM EDT 05/10/2024 12:41 PM EDT us Gavin Batista MD CHEMISTRY ORDERABLES Final R esult [facility] [address], [place] [id number] * EK EKG 12 LEAD (05/10/2024 12:28 PM EDT) Only the most recent of2 resultswithin the time period is included. 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1960 Requested By: [facility] Order Number: [id number] Reading MD: Tano Marie Measurements Intervals [place] Rate: 98 P: 220 RI: 322 QRS: -90 QRSD: 142 T: 51 QT: 390 QTc: 498 Interpretive Statements ELECTRONIC ATRIAL PACEMAKER ELECTRONIC VENTRICULAR PACEMAKER ABNORMAL RHYTHM ECG WARNING: DATA QUALITY MAY AFFECT INTERPRETATION WHEN COMPARED TO PREVIOUS ECG:NO SIGNIFICANT CHANGES ARE NOTED Electronically Signed On 05-10-2024 16:56:57 EDT by Tano Marie us Gavin Batista MD IMG ECG ORDERABLES Final Res ult * IR 2 LEVEL BILATERAL MEDIAL BRANCH BLOCK LUM SAC (04/26/2024 1:26 PM EDT) Anatomical Region Laterality Modality Interventional R adiology Narrative 04/26/2024 1:43 PM EDT Table formatting from the original result was not included. [facility] PROCEDURE NOTE Tashi Martin 1960 April 26, 2024 SURGEON(S): Jordi Epps MD PRE-OP DIAGNOSIS: 1. Lumbar spondylosis POST-OP DIAGNOSIS: 1. Lumbar spondylosis IMAGING: Fluoroscopy PROCEDURE: Flouroscopic guided Bilateral Medial Branch Block of L3/L4 & L4/5 PROCEDURE IN DETAIL: After obtaining informed consent from the patient, the patient's chart was reviewed. The patient was then brought to the procedure room and placed in the prone position. A formal time out was performed identifying the correct patient, correct procedure, reviewing anticoagulation status, reviewing allergies and verifying the correct sites and side. Using sterile technique, appropriate attire was donned, and the operative area was prepped and draped in the usual sterile fashion. Multiple fluoroscopic views were used to optimize the approach to bilateral L3/L4 & L4/5 facet joint medial branch nerves. The superior aspect of the transverse process was identified at the junction with the superior articular process. The sacral ala was also identified. The skin was anesthetized with 1% Lidocaine. A 22 gauge 3.5 spinal needle was placed in the skin and advanced under intermittent fluoroscopic guidance in a coaxial fashion to the appropriate levels and site of the medial branches at bilateral L3, L4, and L5 sites. Next, after negative aspiration, 1 mL of 0.5% Bupivicaine was injected at each site with minimal pressure. CSF was negative, Paresthesia was negative and Heme was negative. All needles were then flushed with 1% lidocaine and then removed. Sterile dressings were applied to all the sites and the patient tolerated the procedure well and was taken to the recovery area in stable condition. EBL: approx 0-1cc Images of procedure found under images tab dated: 04/26/2024 DISPOSITION/POST PROC COURSE: The patient was monitored for any adverse hemodynamic, allergic, or neurological symptoms. The patient tolerated the procedure well with no apparent complications. Vital signs remained stable throughout the procedure. The patient was taken to the recovery area where written discharge instructions for the procedure were given. The patient was discharged home. @VITALS@ Jordi Epps MD Interventional Pain Management [facility] Date: 04/26/[address]ho APRN IMG IR ORDERABLES Final Resu lt * SCANNED RHYTHM STRIPS (04/24/2024 8:57 AM EDT) Anatomical Region Laterality Modality Other 04/24/2024 8:57 AM EDT us Unknown Provider IMG ECG ORDERABLES Final Result * (ABNORMAL) COMPREHENSIVE METABOLIC PANEL (04/23/2024 11:27 AM EDT) Only the most recent of3 resultswithin the time period is included. Sodium 138 136 - 145 mmol/L 04/23/2024 12:03 PM EDT [facility] Potassium 3.7 3.5 - 5.0 mmol/L 04/23/2024 12:03 PM EDT [facility] Chloride 106 98 - 107 mmol/L 04/23/2024 12:03 PM EDT [facility] Total CO2 21(L) 22 - 29 mmol/L 04/23/2024 12:03 PM EDT [facility] Anion Gap 11 7 - 16 mmol/L 04/23/2024 12:03 PM EDT [facility] Calcium 8.6(L) 8.8 - 10.4 mg/dL 04/23/2024 12:03 PM EDT [facility] Glucose Lvl 165(H) 70 - 99 mg/dL 04/23/2024 12:03 PM EDT [facility] BUN 16 8 - 23 mg/dL 04/23/2024 12:03 PM EDT [facility] Creatinine 0.62(L) 0.67 - 1.30 mg/dL 04/23/2024 12:03 PM EDT [facility] Albumin 4.0 3.2 - 4.6 gm/dL 04/23/2024 12:03 PM EDT [facility] Total Protein 6.3(L) 6.4 - 8.3 gm/dL 04/23/2024 12:03 PM EDT [facility] Bili Total 0.3 0.2 - 1.4 mg/dL 04/23/2024 12:03 PM EDT [facility] ALT 24 <=41 U/L 04/23/2024 12:03 PM EDT [facility] AST 21 <=40 U/L 04/23/2024 12:03 PM EDT [facility] Alk Phos 75 40 - 129 U/L 04/23/2024 12:03 PM EDT [facility] eGFR (CKD-EPIcr 2020) 106 >=60 mL/min/1.7 3 m2 04/23/2024 12:03 PM EDT [facility] Comment:Estimated GFR was ca lculated using the CKD-EPIcr (2020) equation refit without race. The equation is recommended by the National Kid[employer] - [place] [employer] of Nephrology Task Force. Blood VENOUS BLOOD / Unknown Venipuncture / Unknown 04/23/2024 11:27 AM EDT 04/23/2024 11:31 AM EDT us Chaz Curiel II, MD CHEMISTRY ORDERABLES Lori l Result [facility] [address] [facility] , [place] [address] * EC ECHOCARDIOGRAM LIMITED W BUBBLES (04/22/2024 3:08 PM EDT) Ejection Fraction 60-65% PYRAMIS MITRAL REGURGITATION no PYRAMIS AORTIC STENOSIS no PYRAMIS LV DIASTOLIC PLAX 4.91 cm PYRAMIS Anatomical Region Laterality Modality Electrocardiogra phy 04/22/2024 2:24 PM EDT Impressions 04/22/2024 4:06 PM EDT Conclusions * Left ventricular chamber dimension is normal. * Left ventricular function is normal with an estimated ejection fraction of 60-65%. * There is moderately increased left ventricular wall thickness. * Left ventricular segmental wall motion is normal. * The left ventricular diastolic function is indeterminate. * Unable to estimate pulmonary arterial systolic pressure due to lack of tricuspid regurgitation jet. * Left atrial chamber dimension is enlarged. * The aortic root is borderline dilated. * There is mild aortic valve regurgitation. Narrative Procedure Note Daniel Neal MD - 04/22/2024 IMPRESSION Conclusions * Left ventricular chamber dimension is normal. * Left ventricular function is normal with an estimated ejectionfraction of 60-65%. * There is moderately increased left ventricular wall thickness. * Left ventricular segmental wall motion is normal. * The left ventricular diastolic function is indeterminate. * Unable to estimate pulmonary arterial systolic pressure due to lackof tricuspid regurgitation jet. * Left atrial chamber dimension is enlarged. * The aortic root is borderline dilated. * There is mild aortic valve regurgitation. Chaz Curiel II, MD IM ECHO ORDERABLES Final Result * XR CHEST AP PORTABLE (04/20/2024 3:34 AM EDT) Anatomical Region Laterality Modality Chest Radiographic Maria Victoria ging 04/20/2024 3:34 AM EDT Impressions 04/20/2024 3:38 AM EDT No acute cardiopulmonary process. - Note: Radiology results need to be interpreted within a comprehensive clinical context. If you have questions about the radiology report, please contact the office of the ordering clinician. Narrative 04/20/2024 3:38 AM EDT XR CHEST AP PORTABLE, 04/20/2024 3:34 AM CLINICAL HISTORY: -syncope COMPARISON: March 10, 2024 PROCEDURE COMMENTS: AP portable technique. FINDINGS: Stable cardiac and aortic configuration. No acute failure, pneumonia, or effusion. Grossly stable appearance of the lungs. Procedure Note Sam Oates MD - 04/20/2024 XR CHEST AP PORTABLE, 04/20/2024 3:34 AM CLINICAL HISTORY: -syncope COMPARISON: March 10, 2024 PROCEDURE COMMENTS: AP portable technique. FINDINGS: Stable cardiac and aortic configuration. No acute failure,pneumonia, or effusion. Grossly stable appearance of the lungs. IMPRESSION: No acute cardiopulmonary process. - Note: Radiology results need to be interpreted within a comprehensiveclinical context. If you have questions about the radiology report, please contactthe office of the ordering clinician. Chaz Maier MD [facility] DIAGNOSTIC IMAGING ORDERA BLES Final Result * (ABNORMAL) HEMOGLOBIN A1C (04/10/2024 1:37 PM EST) Hgb A1C 7.2(H) 4.2 - 5.6 % 04/10/2024 10:14 PM EST [facility] [facility] Est. Avg Glucose 160 mg/dL 04/10/2024 10:14 PM EST [facility] Blood VENOUS BLOOD / Unknown Venipuncture / Unknown 04/10/2024 1:37 PM EST 04/10/2024 1:37 PM EST Narrative [facility] - 04/10/2024 10:14 PM EST REFERENCE RANGE: Normal: 4.0-5.6% Pre-diabetes: 5.7-6.4% Provisional diagnosis of diabetes: >6.4% Hgb F>10% and anything which shortens red cell survival, such as hemolytic anemia, or unstable hemoglobin variants such as HbSS, HbSC, or HbCC, will lower the HbA1c value associated with a given level of glycemic control. us Mila Lange MD CHEMISTRY ORDERABLES Final Res ult [employer] [facility] [address] [facility] [address], [place] [address] [facility] [address] [place] [address] * (ABNORMAL) LIPID SCREEN (04/10/2024 1:37 PM EST) Cholesterol 165 <200 mg/dL 04/10/2024 9:07 PM EST [facility] Comment: < 200 Desirable 200 - 239 Borderline High >= 240 High Triglyceride 165(H) <150 mg/dL 04/10/2024 9:07 PM EST [facility] Comment: < 150 Normal 150 - 199 Borderline High 200 - 499 High >= 500 Very High HDL 41 >=40 mg/dL 04/10/2024 9:07 PM EST [employer] [facility] Comment: > 60 Optimal 40 - 60 Acceptable < 40 Low LDL Calculated 95 <100 mg/dL 04/10/2024 9:07 PM EST [employer] [facility] Comment: < 100 Optimal 100 - 129 Near or above optimal 130 - 159 Borderline High 160 - 189 High >= 190 Very High The National Institutes of Health (NIH) equation is used for all lipid panels that report calculated LDL (LDL-C). Non-HDL-C Calculated 124 <=129 mg/dL 04/10/2024 9:07 PM EST [employer] [facility] Comment: <130 Desirable 130-159 Above Desirable 160-189 Borderline High 190-219 High >= 220 Very High Fasting Specimen? Yes None 025 9:07 PM EST [facility] Blood VENOUS BLOOD / Unknown Venipuncture / Unknown 04/10/2024 1:37 PM EST 04/10/2024 1:37 PM EST Mila Lange MD CHEMISTRY ORDERABLES Final Res ult Performing Organization Address [facility] Co de Phone Number [facility] [address] [facility] , [address] [phone] [facility] [address] [place] [address] * MICROALBUMIN/CREATININE RATIO URINE (01/19/2024 3:09 PM EST) Urine Microalb <12.0 mg/L 01/19/2024 8:46 PM EST [facility] Urine Creatinine 45.1 mg/dL 01/19/20 24 8:46 PM EST [facility] [employer] [facility] [employer], [facility] Ur Microalb/Creat 024 8:46 PM EST [facility] [employer] [facility] [employer] Comment: Because the albumin level is below the level of detection in this urine specimen, the laboratory is unable to calculate a reliable albumin/creatinine ratio. Microalbuminuria is unlikely if the urine albumin concentration is less than 20- 30 mg/L in a random specimen. Urine URINE SPECIMEN COLLECTION / Unknown 01/19/2024 3:09 PM EST 01/19/2024 3:09 PM EST us Mila Lange MD URINE ORDERABLES Final Result Performing Organization Address [facility] Co de Phone Number [facility] [employer], [facility] [address] [facility] , [place] [phone] * ACUTE HEPATITIS PANEL (04/10/2019 9:08 AM EST) Hep Bs Ag Non-Reacti ve Non-Reacti ve 04/10/2019 3:08 PM EST [facility] Hep B Core IgM Non-Reacti ve Non-Reacti ve 04/10/2019 3:08 PM EST [facility] Hep A IgM Non-Reacti ve Non-Reacti ve 04/10/2019 3:08 PM EST [facility] Hep C Ab Non-Reacti ve Non-Reacti ve 04/10/2019 3:08 PM EST [facility] Blood VENOUS BLOOD / Unknown Venipuncture / Unknown 04/10/2019 9:08 AM EST 04/10/2019 9:08 AM EST us Mila Lange MD CHEMISTRY ORDERABLES Final Res ult [facility] [address] [place] [address] * DIABETES EYE EXAM (09/18/2018) us Historical Provider HEALTH MAINTENANCE Final Res ult Performing Organization Address City/[facility]/ZIP Co de Phone Number SEP OFFICE from Last 3 Months or Most Recently Relevant to Health Maintenance Insurance FRANNIE HARRINGTON MR FRANNIE HARRINGTON MR Member Subscriber Plan / Payer (Ef fective 2024-Present) Name:Tashi Martin Jr. Relation to Subscriber:Self Name:Tashi Martin Jr. Payer ID:Not on file Group ID:[id number] Type:Not on file Address: [id number] Advance Directives For more information, please contact: [phone] * Full Code (Latest Code Status on File) Date Activated Date Inactivated Comments 05/10/2024 5:51 PM 05/13/2024 6:45 PM * Full Code Date Activated Date Inactivated Comments 04/20/2024 5:49 PM 04/24/2024 12:31 AM * Full Code Date Activated Date Inactivated Comments 04/20/2024 1:38 PM 04/20/2024 4:24 PM * Full Code Date Activated Date Inactivated Comments 03/11/2024 1:24 AM 03/13/2024 8:35 PM * Full Code Date Activated Date Inactivated Comments 02/02/2024 5:12 AM 02/16/2024 11:29 PM Care Teams Dust Collector Relationship Specialty Start Date End Date Mila Lange MD [address] [place] [address] PCP - General Family Medicine 06/22/11
--- OUTSIDE RECORDS SUMMARY | 2024-07-21 16:18 | XMS_ITS | Encounter Summary ---
Author Organization [place] [address] Care Team Providers Care Gas Transfer Operator Name Role Phone Mila Lange MD Primary Care Provider Nery Mccartney RN Unavailable Unavail able Reason for Visit * Reason Onset Date Comments CM- Telephonic Outreach 05/31/2024 CM- Longitudinal Continued 05/31/2024 Encounter Details Date Type Department Care Team (Late st Contact Info) Description 05/31/2024 Patient Outreach [facility] [address] [place] [address] Nery Mccartney, RN CM- Telephonic Outreach; CM- Longitudinal Continued Social History Tobacco Use Types Packs/Day Years [...] reports drinking 4 shots of whiskey tonight [facility] Utilities Answer Date Recorded In the past 12 months has [employer] electric, gas, oil, or water company threatened to shut off services in your home? No 05/11/2024 Overall Financial Resource Strain (CARDIA) Answe r Date Recorded How hard is it for you to pa y for the very basics like food, housing, medical care, and heating? Not very hard 05/11/2024 PHQ-2 Answer Date Recorded PHQ-2 Total Score 0 05/11/2024 [facility] - Occupational Stress Questionnaire Answer Date [...] things needed for daily living? No 01/12/2023 [facility] IP Transportation Answer D ate Recorded In [...] Progress Notes * Nery Mccartney RN - 05/31/2024 1:02 PM EDT Patient Outreach Third attempt to contact patient regarding longitudinal care follow-up. Outcome: Unable to reach patient by phone HIPAA compliant voicemail left documented in this encounter Plan of Treatment [...] next visit on 04/06/24. General On track( 025 3:18 PM EST) No Nery Mccartney RN [...] documented as of this encounter Care Teams Gas Transfer Operator Relationship Specialty Start Date End Date Mila Lange MD [address] [place] [address] PCP - General Family Medicine 06/22/11 Nery Mccartney RN Timber Incisor Operator Registered Nurse 03/23/24 documented as of this encounter
--- OUTSIDE RECORDS SUMMARY | 2024-07-21 16:18 | XMS_ITS | Encounter Summary ---
Author Organization [place] [address] Care Team Providers Care Rock Climbing Team Member Name Role Phone Mila Lange MD Primary Care Provider [phone] Reason for Visit * Reason Onset Date Comments Medication Management 07/05/2024 Pack Room Operator Black Topper: [facility] [phone] Encounter Details Date Type Department Care Team (Late st Contact Info) Description 07/05/2024 Patient Outreach [facility] [address] [place] [address] Missy Wright CPhT Medication Management (Pack Room Operator Black Topper: [facility] [phone]/) Social History Tobacco Use Types Packs/Day Years [...] reports drinking 4 shots of whiskey tonight [facility] Utilities Answer Date Recorded In the [...] Date Recorded PHQ-2 Total Score 0 05/11/2024 [facility] - Occupational Stress Questionnaire Answer Date [...] things needed for daily living? No 01/12/2023 [facility] IP Transportation Answer D ate Recorded In [...] documented in this encounter Progress Notes * Missy Wright CPhT - 07/05/2024 1:03 PM EDT Ambulatory Pharmacy Outreach 07/05/2024 by Missy Wright CPhT Patient Tashi Martin Jr. was contacted by Clinical Black Topper for OUTCOMES COMPREHENSIVE MEDICATION REVIEW (CMR). Clinical Product Sales Engineer outreaching to patient to attempt to schedule schedule pharmacist Outcomes appointment, patient also TIPS eligible. Adherence on Needs check-in (antidepressant- SNRI) and Needs drug therapy for ACEI/ARB (CAD) This is the FIRST attempt to reach patient. color developer unable to reach patient. color developer left voice mail with call back number of [phone]. Next outreach by Clinical color developer on or around 08/05/24 if applicable. [employer] not set up; unable to send [employer] message Missy Wright CPhT documented in this encounter Plan of Treatment [...] an ideal body weight General No Nyasia Ruelas, RMA Patient will complete office visit with [...] documented as of this encounter Care Teams Rock Climbing Team Member Relationship Specialty Start Date End Date Mila Lange MD [address] [place] [address] PCP - General Family Medicine 06/22/11 documented as of this encounter
--- OUTSIDE RECORDS SUMMARY | 2024-07-21 16:18 | XMS_ITS | Encounter Summary ---
Author Organization [place] [address] Care Team Providers Care Telephone Messenger Name Role Phone Mila Lange MD Primary Care Provider [phone] Nery Mccartney RN Unavailable Unavail able Reason for Visit * Reason Onset Date Comments Other 06/06/2024 Multiple No Show s Encounter Details Date Type Department Care Team (Late st Contact Info) Description 06/06/2024 Telephone [place] [address] [place] [address] Irma Briceño, Newspaper Delivery Counselor Other (Multiple No Shows) Social History Tobacco Use Types Packs/Day Years [...] pt reports drinking 4 shots of whiskey [facility] Utilities Answer Date Recorded In the past [...] Recorded PHQ-2 Total Score 0 05/11/2024 [facility] - Occupational Stress Questionnaire Answer Date Recorded [...] things needed for daily living? No 01/12/2023 [facility] IP Transportation Answer D ate Recorded In [...] Jon Brink MA documented in this encounter Miscellaneous Notes * Telephone Encounter - Марина Ocasio - 06/07/2024 11:20 AM EDT *Correction Pt had 1.5 pts fall off from 05/11/23 and 06/01/23. Pt is actually at 2.5 points. Warning letter sent. * Telephone Encounter - Jordi Epps MD - 06/06/2024 5:32 PM EDT Ok for another chance. Thanks * Telephone Encounter - Марина Ocasio - 06/06/2024 9:21 AM EDT Patient has missed the following appointments within the past year: SNC Appt 05/11/23, 05/02/24 NS Appt 06/01/23, 03/28/24, 06/06/24 Patient is at 3 point limit and per office policy can be dismissed. Would you like a dismissal placed and letter sent? documented in this encounter Plan of Treatment [...] documented as of this encounter Care Teams Telephone Messenger Relationship Specialty Start Date End Date Mila Lange MD [address] [place] [address] PCP - General Family Medicine 06/22/11 Nery Mccartney RN Strand Buncher Fine Wire Registered Nurse 03/23/24 documented as of this encounter
[2024-07-21 16:26] LABS: Alanine Aminotransferase 37 U/L (12-78); Albumin Level 4.5 g/dl (3.5-5.0); Albumin/Globulin Ratio 1.5 (1.1-1.8); Alkaline Phosphatase 70 U/L (38-126); Anion Gap 9.9 mEq/L (5-15); Aspartate Amino Transferase 42 U/L (17-59); Bilirubin,Total 0.7 mg/dl (0.2-1.3); Blood Urea Nitrogen 16 mg/dl (9-20); Carbon Dioxide 28 mmol/L (22.0-30.0); Chloride 107 mmol/L (98-107); Creatinine Clearance Estimated 99 mL/min (50-200); Estimated Glomerular Filt Rate 85 ml/min (>60); GFR (African American) 102 ML/MIN (>60); Glucose 189 mg/dl (74-100); Magnesium 1.5 mg/dl (1.6-2.3); Potassium 3.9 mmoL/L (3.5-5.1); Sodium 141 mmol/L (136-145); Total Protein,Serum 7.5 g/dl (6.3-8.2)
[2024-07-21 16:30] LABS: D-Dimer 1.47 ug/mL (0.0-0.5)
[2024-07-21 16:36] LABS: NT Pro Brain Natriuretic Pep. 1560 pg/mL (0-125)
--- NOTE | 2024-07-21 16:38 | PC.NURSE ---
pt gone to radiology
[2024-07-21 16:39] LABS: Troponin I < 0.01 ng/ml (0.00-0.034)
[2024-07-21 16:44] LABS: Procalcitonin 0.055 ng/mL (0.0-2.0)
[2024-07-21] MEDS: SODIUM CHLORIDE 0.9% 10ML SYR (RAD ONLY) 10 ML IV (16:44)
[2024-07-21] MEDS: 0.9 % SODIUM CHLORIDE 50 ML VIAL 100 ML IV (16:44)
[2024-07-21] MEDS: IOPAMIDOL-370 (76%);100ML BOTTLE 160 ML IV (16:44)
[2024-07-21] MEDS: MAGNESIUM SULFATE IN WATER 2 GM/50 ML PIGGYBACK IV (16:50)
--- NOTE | 2024-07-21 16:50 | PC.NURSE ---
pt back from [place]
[2024-07-21 16:58] LABS: Triiodothryronine (T3) Uptake 34 % (23.5-40.5)
[2024-07-21 16:59] LABS: Free Thyroxine Index 2.6 ug/dL (5.93-13.13); T4 (Thyroxine) 7.6 ug/dl (5.53-11.0)
[2024-07-21 17:13] LABS: Thyroid Stimulating Hormone 1.13 uIU/mL (0.465-4.68)
--- OUTSIDE RECORDS SUMMARY | 2024-07-21 17:17 | XMS_ITS | CCD ---
Author Organization Unknown Care Team Providers Care Assurance Services Manager Health Care Name Role Phone Unavailable Primary Care Provider Unavailabl e Unavailable Chronic Care Management Unavaila ble Summary Purpose DataExchange Insurance Providers Payer name Policy type / Coverage type Covered democrat ID Effective Begin Date Effective End Date [facility] [id number] Unknown Unknown Family History Family History data not found Medication Administered No Medication Administered data Reason For Visit No Reason For Visit data Medical Equipment No Medical Equipment data Advance Directives No Advance Directive data
--- NOTE | 2024-07-21 18:40 | PC.NURSE ---
2nd trop sent at this time
[2024-07-21 19:06] LABS: Troponin I < 0.01 ng/ml (0.00-0.034)
--- NOTE | 2024-07-21 19:29 | PC.NURSE ---
bladder scan preformed, 161ml found. notified.
== END 2024-07-21 19:37 | disposition home or self-care (01) ==
PROVIDERS: Physician Assistant; Emergency Provider Emergency Medicine; PCP Family Medicine
DX: R07.89 Other chest pain (principal); J98.4 Other disorders of lung; R00.0 Tachycardia, unspecified; I49.3 Ventricular premature depolarization; I45.2 Bifascicular block; F17.210 Nicotine dependence, cigarettes, uncomplicated; I10 Essential (primary) hypertension
CPT/HCPCS: 51798; 70496; 70498; 71275; 80053; 83735; 83880; 84145; 84436; 84443; 84479; 84484; 85025; 85378; 93005; 96365; 96375; 99285; J1885; J2405; J3475; J7030; Q9967

== ENCOUNTER 2024-08-02 10:13 | Outpatient (CLI) | payer MEDICARE, SELFPAY ==
--- OUTSIDE RECORDS SUMMARY | 2024-08-02 10:16 | XMS_ITS | Clinical Summary ---
Author Organization [facility] Address [address] [place] [address] Phone Care Team Providers Care Dairy Chemist Name Role Phone Cornelia De Leon MD Conditions or Problems Problem Name Problem Code Onset Date Status Entry Date Provider Comment Standard Description Annotate *AFTERCARE FOLLOW SURGERY, NERVOUS SYSTEM NEC Z48.811 (ICD-10-CM) Active Cornelia De Leon MD Encounter for surgical aftercare following surgery on the nervous system RADICULOPATHY , LUMBAR REGION M54.16 (ICD-10-CM) Active Aakash Morfin Radiculopathy , lumbar region UNSPECIFIED PRE-OPERATIVE EXAMINATION 471821990 (SNOMED CT) Active Ritika Gonzalez History and physical examination for surgical clearance LUMBOSACRAL RADICULITIS 31087023 (SNOMED CT) Active Cornelia De Leon MD Lumbosacral radiculitis OVERWEIGHT 012667951 (SNOMED CT) Active Cornelia De Leon MD Overweight Medications Medication Instructions Start Date Stop Date Generic Name [facility] Provider HIBICLENS 4 % EXTERNAL LIQUID Wash the entire back and hip/buttock areas the night prior to the surgey CHLORHEXIDINE GLUCONATE 93383021191 Cornelia De Leon MD HIBICLEJUANITA 4 % EXTERNAL LIQUID Wash the entire back and hip/buttock areas the night prior to the surgey CHLORHEXIDINE GLUCONATE 93857435781 Cornelia De Leon MD ACCU-CHEK FASTCLIX LANCETS Non-[place] LANCETS 72460718861 Cornelia De Leon MD LISINOPRIL 20 MG TABS 1 daily Non- LISINOPRIL 88043815487 Cornelia De Leon MD SILDENAFIL CITRATE 20 MG TABS 1 tid Non- SILDENAFIL CITRATE 74456798829 Cornelia De Leon MD TAMSULOSIN HCL 0.4 MG CAPS 1 qhs Non- TAMSULOSIN HCL 68917321936 Cornelia De Leon MD BREO ELLIPTA 100-25 MCG/ACT AEPB 1 daily Non- FLUTICASONE FUROATE-VILANTER OL 11774675066 Cornelia De Leon MD DILTIAZEM HCL ER COATED BEADS 120 MG [id number] 1 daily Non- DILTIAZEM HCL COATED BEADS 60925308871 Cornelia De Leon MD METOPROLOL SUCCINATE ER 100 MG [id number] 1 daily Non- METOPROLOL SUCCINATE 27542613505 Cornelia De Leon MD ATORVASTATIN CALCIUM 40 MG TABS 1 qhs Non- ATORVASTATIN CALCIUM 47440892304 Cornelia De Leon MD STRESS PLUS ZINC TABS 1 daily Non- B [id number] 96426338444 Cornelia De Leon MD FENOFIBRATE MICRONIZED 134 MG CAPS 1 daily Non- FENOFIBRATE MICRONIZED 37965396734 Cornelia De Leon MD TIZANIDINE HCL 4 MG TABS 1 qhs - TIZANIDINE HCL 84515493532 Cornelia De Leon MD NORTRIPTYLINE HCL 25 MG CAPS 1 qhs Non- NORTRIPTYLINE HCL 70396468031 Cornelia De Leon MD CO Q 10 CAPS 1 daily Non- COENZYME Q10 CAPS 71998614212 Cornelia De Leon MD OXYCODONE-ACETAM INOPHEN 5-325 MG TABS 1 po q 6 hours Non- OXYCODONE-ACETAM INOPHEN 51481195979 Cornelia De Leon MD OMEPRAZOLE 40 MG CPDR 1 daily Non- OMEPRAZOLE 40904743993 Cornelia De Leon MD METFORMIN HCL ER 500 MG [id number] 1 daily Non- METFORMIN HCL 30994019497 Cornelia De Leon MD ASPIRIN ADULT LOW DOSE 81 MG TBEC 1 daily Non-Tellez ASPIRIN 96708744754 Cornelia De Leon MD FUROSEMIDE 40 MG TABS 1 daily Non-Tellez FUROSEMIDE 10121416256 Cornelia De Leon MD POTASSIUM CHLORIDE ZULEMA ER 20 MEQ CR-TABS 1 daily Non-Tellez POTASSIUM CHLORIDE ZULEMA CR 18584620481 Cornelia De Leon MD BACLOFEN TABS 1 tid Non-Tellez BACLOFEN TABS 26963690211 Cornelia De Leon MD Medications Administered No information available. Allergies, Adverse Reactions, Alerts Observed No Known Drug Allergies at Results No information available. Plan of Care Type Date Detail Pending order X-Ray Thoracic A P & Lateral Pending order MRI Thoracic Patient education weight%20manag ement Patient education weight%20manag ement Patient education weight%20manag ement Patient education weight%20manag ement Patient education weight%20manag ement Patient education weight%20manag ement Patient education weight%20manag ement Patient education weight%20manag ement Patient education weight%20manag ement Procedures Code Procedure Name Date Entry Date 34150 MRI Thoracic Spine 1 Vital Signs Date Name Value Unit Description BMI (Body Mass Index) 29.83 kg/m2 Bod y Mass Index (Ratio) Height 72 [in_us] height E&M Weight Measured 220 [lb_av] weight E& M Weight Measured 220 [lb_av] weight E& M BP Diastolic 79 mm[Hg] blood pressu re, diastolic BP Systolic 117 mm[Hg] blood pressur e, systolic Heart Rate 76 /min pulse rate Immunizations No information available. Advance Directives No information available.
--- OUTSIDE RECORDS SUMMARY | 2024-08-02 10:17 | XMS_ITS | Encounter Summary ---
Author Organization [place] [address] Care Team Providers Care Senior Web Architect Name Role Phone Mila Lange MD Primary Care Provider [phone] Reason for Visit * Reason Onset Date Comments CM- Longitudinal Graduation 06/08/2024 Encounter Details Date Type Department Care Team (Late Contact Info) Description 06/08/2024 Patient Outreach [facility] [address] [place] [address] Nery Mccartney RN CM- Longitudinal Graduation Social History Tobacco Use Types Packs/Day Years Used Date Smoking Tobacco: Every Day Cigarettes 1.5 55.5 Started: 02/07/1971 Smokeless Tobacco: Never Comments:Pt reports he is cu rrently smoking 0.5ppd-02/13/19-KR Pt states he is only smoking 3-4 cigarettes a day now - 01/19/24 KN Alcohol Use Standard Drinks/Week Comments Yes 4 (1 standard drink = 0.6 oz pure alcohol) pt reports drinking 4 shots of whiskey [email or web address] [facility] Utilities Answer Date Recorded In the past 12 months has [employer] electric, gas, oil, or water company threatened to shut off services in your home? No 05/11/2024 Overall Financial Resource Strain (CARDIA) Answe r Date Recorded How hard is it for you to pa y for the very basics like food, housing, medical care, and heating? Not very hard 05/11/2024 PHQ-2 Answer Date Recorded PHQ-2 Total Score 0 05/11/2024 [facility] - Occupational Stress [...] things needed for daily living? No 01/12/2023 [facility] IP Transportation Answer D ate Recorded In [...] documented as of this encounter Care Teams Senior Web Architect Relationship Specialty Start Date End Date Mila Lange MD [address] [place] [address] PCP - General Family Medicine 06/22/11 documented as of this encounter
--- OUTSIDE RECORDS SUMMARY | 2024-08-02 10:17 | XMS_ITS | Encounter Summary ---
Author Organization [place] [address] Care Team Providers Care Product Safety Expert Name Role Phone Mila Lange MD Primary Care Provider [phone] Reason for Visit * Reason Onset Date Comments Medication Management 07/05/2024 System Controller Cook Helper: [facility] [phone] Encounter Details Date Type Department Care Team (Late st Contact Info) Description 07/05/2024 Patient Outreach [facility] [address] [place] [address] Missy Wright CPhT Medication Management (System Controller Cook Helper: [facility] [phone]/) Social History Tobacco Use Types Packs/Day Years [...] reports drinking 4 shots of whiskey tonight [facility] Utilities Answer Date Recorded In [...] Date Recorded PHQ-2 Total Score 0 05/11/2024 [facility] - Occupational Stress Questionnaire Answer [...] things needed for daily living? No 01/12/2023 [facility] IP Transportation Answer D ate Recorded In [...] Tashi Martin Jr. was contacted by Clinical Cook Helper for OUTCOMES COMPREHENSIVE MEDICATION REVIEW (CMR). Clinical Inside Sales Executive outreaching to patient to attempt to schedule schedule pharmacist Outcomes appointment, patient also TIPS eligible. Adherence on Needs check-in (antidepressant- SNRI) and Needs drug therapy for ACEI/ARB (CAD) This is the FIRST attempt to reach patient. desktop publishing associate unable to reach patient. desktop publishing associate left voice mail with call back number of [phone]. Next outreach by Clinical desktop publishing associate on or around 08/05/24 if applicable. [employer] not set up; unable to send [employer] message Missy Wright CPhT documented in this [...] documented as of this encounter Care Teams Product Safety Expert Relationship Specialty Start Date End Date Mila Lange MD [address] [place] [address] PCP - General Family Medicine 06/22/11 documented as of this encounter
--- OUTSIDE RECORDS SUMMARY | 2024-08-02 10:17 | XMS_ITS | Encounter Summary ---
Author Organization [place] [address] Care Team Providers Care Tax Form Preparer Name Role Phone Mila Lange MD Primary Care Provider [phone] Nery Mccartney RN Unavailable Unavail able Reason for Visit * Reason Comments Medication Refill Encounter Details Date Type Department Care Team (Late Contact Info) Description 05/29/2024 Refill [facility] [address] [place] [id number] Mila Lange MD [address] [place], [place] [id number] Medication Refill Social History Tobacco Use Types [...] reports drinking 4 shots of whiskey tonight [facility] Utilities Answer Date Recorded In the past [...] Date Recorded PHQ-2 Total Score 0 05/11/2024 [facility] - Occupational Stress Questionnaire Answer Date Recorded [...] things needed for daily living? No 01/12/2023 [facility] IP Transportation Answer D ate Recorded In [...] Assessment Author No 03/16/2024 8:51 AM Jon rBink MA documented as of this encounter Mental [...] on track( 12:04 PM EST) No Nyasia Ruelsa RMA LDL CALC < 100 Result Component [...] documented as of this encounter Care Teams Tax Form Preparer Relationship Specialty Start Date End Date Mila Lange MD [address] [place] [address] PCP - General Family Medicine 06/22/11 Nery Mccartney RN Cork Insulation Setter Registered Nurse 03/23/24 documented as of this encounter
--- OUTSIDE RECORDS SUMMARY | 2024-08-02 10:17 | XMS_ITS | Encounter Summary ---
Author Organization [place] [address] Care Team Providers Care Hyperion Essbase Developer Name Role Phone Mila Lange MD Primary Care Provider [phone] Nery Mccartney RN Unavailable Unavail able Reason for Visit * Reason Onset Date Comments Other 06/06/2024 Multiple No Show s Encounter Details Date Type Department Care Team (Late st Contact Info) Description 06/06/2024 Telephone [place] [address] [place] [address] Irma Briceño, Briar Wood Sorter Other (Multiple No Shows) Social History Tobacco [...] pt reports drinking 4 shots of whiskey [facility] Utilities Answer Date Recorded In the [...] Date Recorded PHQ-2 Total Score 0 05/11/2024 [facility] - Occupational Stress Questionnaire Answer Date [...] things needed for daily living? No 01/12/2023 [facility] IP Transportation Answer D ate Recorded In [...] documented as of this encounter Care Teams [employer] Essbase Developer Relationship Specialty Start Date End Date Mila Lange MD [address] [place] [address] PCP - General Family Medicine 06/22/11 Nery Mccartney RN Data Designer Registered Nurse 03/23/24 documented as of this encounter
--- OUTSIDE RECORDS SUMMARY | 2024-08-02 10:17 | XMS_ITS | Clinical Summary ---
Author Organization [facility] Address [address] [place] [address] Phone Care Team Providers Care Cad Application Support Specialist Name Role Phone Mila Lange MD Primary Care Provider [phone] Allergies Active Allergy Reactions Criticality Noted Date Comments Gabapentin Swelling 05/02/2022 [id number] Antimigraine Agents Other (See Comments) 01/19/2024 Contraindicated [...] 01/15/20 Active nalOXone (NARCAN) 4 mg/actuation Nasl [place], Non-Aerosol 0.1 mL by Nasal route as [...] (Inject under the skin) 46 Units nightly. [place] too please. May increase 2 units per day until fasting blood sugar is 80-110. Max potential is 100 units 18 mL 3 01/25/20 Active Additional Information Patient taking differently: 36 UnitsSubcutaneous NIGHTLY, [place] too please. May increase 2 units per [...] 2 03/23/19 25 Active DEXCOM G7 SENSOR [facility] DeviceIndicatio ns:Type 2 diabetes mellitus with hyperglycemia, without long-term current use of insulin ([facility]) 1 Each by [facility].(Non-Drug; Combo Route) route every 10 days. Follow [...] 04/25/19 25 Active ACCU-CHEK GUIDE TEST STRIPS [facility] StripIndication s:Type 2 diabetes mellitus without complication, without long-term current use of insulin ([facility]) TEST BLOOD SUGAR TWICE DAILY 100 Strip 04/26/19 25 Active ACCU-CHEK SOFTCLIX LANCETS [facility] USE TO TEST BLOOD SUGAR TWICE DAILY [...] migh t be different from the original. [facility] - Dr. 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, now on hold A1c 9.7 on 01/19/2024 [...] (07/29/2021): Added automatically from request for surgery [id number] Assessment & Plan (02/02/2024 12:58 PM EST): History of HI Consider baby aspirin, consider statin PAF (paroxysmal [...] PM EST): On beta-demetri, not on anticoagulation 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 Assessment & Plan (01/21/2024 1:41 PM EST): [...] (02/02/2024 12:58 PM EST): Not on treatment INSTRUMENT TESTER History of pneumothorax 09/04/2014 Overview (09/04/2014): 08/2014 [...] (02/02/2024 12:58 PM EST): Not on treatment INSTRUMENT TESTER Tobacco use Assessment & Plan (02/02/2024 12:58 [...] Description 07/05/2024 Patient Outreach [facility] [address] [place] [address] Missy Wright CPhT Medication Management (Interior Design Director Golf Technician: marine consultant [phone]/) 06/08/2024 Patient Outreach SEP [facility] [address] [place] [address] Nery Mccartney, RN CM- Longitudinal Graduation 06/06/[address] [address] Irma Briceño, Supervisor Hydrochloric Area Other (Multiple No Shows) 05/31/2024 Patient Outreach [facility] [address] [place] [address] Nery Mccartney, RN CM- Telephonic Outreach; CM- Longitudinal Continued 05/29/2024 Refill SEP [facility] [address] [place] [address] Mila Lange MD Medication Refill 05/24/2024 1:30 PM EDT Office Visit SEP [facility] [address] [place] [address] Mila Lange MD Chronic diastolic congestive [...] [place]. [address] Appointment [place] [address] Michaela Gamboa RN Hospital Follow Up; Care Transition; Care Management - Chart Review 05/10/2024 12:28 PM EDT - 05/13/2024 2:40 PM EDT Hospital Encounter [facility] [address] [place] [address] Gavin Batista MD Moise, Ephese, MD Colitis (Primary Dx); Hypotension due to hypovolemia Discharge Disposition: Home or Self Care 05/10/2024 Travel 05/07/2024 Patient Outreach [facility] [address] [place] [address] Nery Mccartney RN CM- Telephonic Outreach; CM- Longitudinal Continued from Last 3 Months Immunizations Immunization Administration Dates Next Due Influenza Vaccine Quadrivalent 11/01/2017,2017 Influenza Vaccine Quadrivalent PF 11/15/2014 Influenza Virus Vaccine Quad rivalant, Flublok 02/05/2019(Deferred: Other - pt already recieved flu shot- see MAR record),02/04/2019 Pneumococcal Conjugate Vacci ne 20 Valent 09/17/2022 Pneumococcal Polysaccharide 23 Valent 08/25/2014 TST,Unspecified Formulation 11/24/2023, Tdap 10/26/2021 Surgical History Surgery Date Site/Laterality Comments BACK SURGERY 02/07/2003 - 02/07/2004 THORACOSCOPY 08/26/2014 Left LEFT THORACOSCOPY RESECTION OF BLEBS with pleuradisis; Surgeon: Frederick Holland MD; Location: [facility]; Service: General LUNG SURGERY 2010, 2014 2011 right spontantaneous pneumothorax. 2014 stapling of blebs [...] INTERVENTION(PCI) 07/31/2021 N/A CORONARY PERCUTANEOUS INTERVENTION (PCI) [[id number]]; Surgeon: Chaz Moya MD; Location: [facility]; Service: Cardiac Medical devices from this [...] Hyperlipidemia COPD (chronic obstructive pu lmonary disease) ([facility]) inhalers. O2 @ 2l/nc @ HS Blood circulation, collateral fe et/ankles swell, takes Lasix Heartburn Arthritis Neuromuscular disorder ([facility]) num bness and tingling left leg related [...] 1.5 55.5 Started: 02/07/1971 Smokeless Tobacco: Never Tobacco Cessation:Ready to Q uit: Not Asked; Counseling Given: Not Answered Comments:Pt reports he is currently smoking 0.5ppd-02/13/19-KR Pt states he is only smoking 3-4 cigarettes a day now - 01/19/24 KN Alcohol Use Standard Drinks/Week Comments Yes 4 (1 standard drink = 0.6 oz pure alcohol) pt reports drinking 4 shots of Geomagic [facility] [place] Lab[place] Answer Date Recorded In the past 12 months has [employer] gas, oil, or water company threatened to shut off services in your home? No 05/11/2024 Overall Financial Resource Strain (CARDIA) Answe r Date Recorded How hard is it for you to pa y for the very basics like food, housing, medical care, and heating? Not very hard 05/11/2024 PHQ-2 Answer Date Recorded PHQ-2 Total Score 0 05/11/2024 [facility] - Occupational Stress Questionnaire Answer Date [...] things needed for daily living? No 01/12/2023 [facility] IP Transportation Answer D ate Recorded In [...] 2) 2008 RSV or 60+ (1 - Risk 60-74 years 1-dose series) 2018 AAA Screening 08/10/2023 COVID-19 Vaccine ( season) 2023 Wellness Exam Medicare 10/06/2024 10/06/2023 Influenza Vaccine (Season Ended) 2024 02/04/2019, 11/01/2017, 03/25/2017, Additional history exists Hemoglobin A1c 10/11/2024 04/10/2024, 01/07, 11/07/2023, Additional history exists Kidney Health: uACR 01/18/2025 01/19/2024, 2 Lipids 04/10/2025 04/10/2024, 01/07, 05/09/2023, Additional history exists Low Dose Lung Cancer Screening 05/10/2025 05/10/2024, 05/07/2023, 01/11/2023, Additional history exists Kidney Health: eGFR 05/13/2025 05/13/2024, 05/12/2024, 05/10/2024, Additional history exists Diabetic Eye Exam 01/18/2026 01/19/2024, 09/18/2018 DTaP/TDaP/Td (2 - Td or Tdap) 10/27/2031 10/26/2021 Hepatitis C Screening Completed 04/10/2019, 03/02/2 017 Pneumococcal Vaccine 50+ Completed 09/17/2022, 08/07 [...] Lange MD Medical Devices Implanted Type Area Side Piece Coverer Device Identifier Shelf Expiration Date Model / Serial / Lot Kit Lead Surgical Artisan 2 X 8 70cm - [id number] Implanted:Qty: 1 on 09/08/2016 by Cornelia De Leon MD at [facility] N/A: Spine Thoracic [employer]NEUR[employer]ION 05/08/2018 [id number] / [id number] / [id number] Kitgenerator Pulse Implantable Mri Montage Precision - [id number] Implanted:Qty: 1 on 09/08/2016 by Cornelia De Leon MD at [facility] N/A: Back [employer]NEUR[employer] 08/04/2018 [id number] / [id number] / [id number] 3.5mm X 32mm Synergy Stent - [id number] Implanted:Qty: 1 on 07/31/2021 by Chaz Moya MD at [facility] N/A: LAD [employer]:CARDIAC RHYTHM MGMT [id number] 09/12/2021 [id number] / / [id number] 3.0mm X 20mm Synergy Stent - [id number] Implanted:Qty: 1 on 07/31/2021 by Chaz Moya MD at [facility] N/A: Ramus [employer]CARDIAC [employer]HY[employer] MGMT [id number] 06/17/2022 [id number] / / [id number] Procedures Procedure Name Priority Date/Time Associated Diagnosis [...] 12 LEAD STAT 05/10/2024 12:28 PM EDT LIPID SCREEN Routine 04/10/2024 1:37 PM [...] 2 diabetes mellitus without complication, unspecified whether care home insulin use (HCC) ACUTE HEPATITIS PANEL Routine 04/10/2019 9:08 AM EST Type 2 diabetes mellitus without complication, without long-term current use of insulin (HCC) Essential hypertension Elevated liver enzymes Generalized abdominal pain HM DIABETES EYE EXAM Routine 09/18/2018 from Last 3 Months or Most Recently Relevant to Health Maintenance Results * (ABNORMAL) GLUCOSE METER POC (05/13/2024 11:47 AM EDT) Only the most recent of11 resultswithin the time period is included. Glucose Meter POC 132(H) 70 - 100 mg/dL 05/13/2024 11:48 AM EDT [facility] Sample Type Capillary 05/13/2024 11:48 AM EDT [facility] Patient Status Non-Critical Patient 05/13/2024 11:48 AM EDT [facility] Blood BLOOD SPECIMEN / Unknown 05/13/2024 11:47 AM EDT 05/13/2024 11:48 AM EDT Mami Ulloa MD POINT OF CARE TEST ORDERABLES Fi nal Result [facility] [address] [place] [address] * ECG AND WAVEFORMS - TELEMETRY (05/13/2024 7:30 AM EDT) Only the most recent of6 resultswithin the time period is included. Pathologist [facility] ECG INTERPRET NSR [facility] 05/13/2024 7:30 AM EDT Narrative [facility] - 05/13/2024 7:49 AM EDT TRO/AM ROUTINE- SR IVCD ND 0.16 QRS 0.15 RR 1.07 QT 0.48 QTc 0.46 See Clinical Report link for waveform capture Unknown Provider POINT OF CARE CARDIOLOGY Final Result [facility] [address] [place] [address] * CBC WITH DIFF (05/13/2024 5:28 AM EDT) Only the most recent of2 resultswithin the time period is included. WBC 7.3 3.7 - 10.3 x10(3)/mcL 05/13/2024 6:22 AM EDT [facility] RBC 4.68 4.60 - 6.10 x10(6)/mcL 05/13/2024 6:22 AM EDT [facility] Hgb 14.7 13.7 - 17.5 g/dL 05/13/2024 6:22 AM EDT [facility] Hct 41.4 40.0 - 51.0 % 05/13/2024 6:22 AM EDT [facility] MCV 88.5 80.0 - 100.0 fL 05/13/2024 6:22 AM EDT [facility] MCH 31.4 26.0 - 34.0 pg 05/13/2024 6:22 AM EDT [facility] MCHC 35.5 30.7 - 35.5 g/dL 05/13/2024 6:22 AM EDT [facility] RDW 12.7 <=14.9 % 05/13/2024 6:22 AM EDT [facility] Platelet 162 155 - 369 x10(3)/mcL 05/13/2024 6:22 AM EDT [facility] MPV 10.3 8.8 - 12.5 fL 05/13/2024 6:22 AM EDT [facility] Neut Percent 40.9 % 05/13/2024 6:22 AM EDT [facility] Comment:Neutrophils equals s egs plus bands Imm Gran% 0.4 % 05/13/2024 6:22 AM EDT [facility] Comment:Automated count of m etamyelocytes, myelocytes and promyelocytes. Lymph Percent 48.2 % 05/13/2024 6:22 AM EDT [facility] Harmon Percent 7.1 % 05/13/2024 6:22 AM EDT [facility] Eos Percent 2.6 % 05/13/2024 6:22 AM EDT [facility] Baso Percent 0.8 % 05/13/2024 6:22 AM EDT [facility] Neut # 3.0 1.6 - 6.1 x10(3)/mcL 05/13/2024 6:22 AM EDT [facility] Comment:Neutrophils equals s egs plus bands IMMGRAN# 0.0 0.0 - 0.1 x10(3)/mcL 05/13/2024 6:[facility] Comment:Automated count of m etamyelocytes, myelocytes and promyelocytes. An absolute IG <0.1 is reported as 0.0. Lymph # 3.5 1.2 - 3.9 x10(3)/mcL 05/13/2024 6:22 AM EDT [facility] Harmon # 0.5 0.3 - 0.9 x10(3)/mcL 05/13/2024 6:22 AM EDT [facility] Eos# 0.2 0.0 - 0.5 x10(3)/mcL 05/13/2024 6:22 AM EDT [facility] Baso # 0.1 0.0 - 0.1 x10(3)/[facility] 05/13/2024 6:22 AM EDT [facility] Blood VENOUS BLOOD / Unknown Venipuncture / Unknown 05/13/2024 5:28 AM EDT 05/13/2024 6:16 AM EDT us Mami Ulloa MD HEMATOLOGY ORDERABLES Final Resu lt [facility] [address] [id number] * (ABNORMAL) BASIC METABOLIC PANEL (05/13/2024 5:28 AM EDT) Only the most recent of3 resultswithin the time period is included. Sodium 140 136 - 145 mmol/L 05/13/2024 6:43 AM EDT [facility] Potassium 3.7 3.5 - 5.0 mmol/L 05/13/2024 6:43 AM EDT [facility] Chloride 108(H) 98 - 107 mmol/L 05/13/2024 6:43 AM EDT [facility] Total CO2 23 22 - 29 mmol/L 05/13/2024 6:43 AM EDT [facility] Anion Gap 9 7 - 16 mmol/L 05/13/2024 6:43 AM EDT [facility] Calcium 8.6(L) 8.8 - 10.4 mg/dL 05/13/2024 6:43 AM EDT [facility] Glucose Lvl 94 70 - 99 mg/dL 05/13/2024 6:43 AM EDT [facility] BUN 8 8 - 23 mg/dL 05/13/2024 6:43 AM EDT [facility] Creatinine 0.68 0.67 - 1.30 mg/dL 05/13/2024 6:43 AM EDT [facility] eGFR (CKD-EPIcr 2020) 103 >=60 mL/min/1.7 3 m2 05/13/2024 6:43 AM EDT [facility] Comment:Estimated GFR was ca lculated using the CKD-EPIcr (2020) equation refit without race. The equation is recommended by the National Kidney Foundation - [place] Society of Nephrology Task Force. Blood VENOUS BLOOD / Unknown Venipuncture / Unknown 05/13/2024 5:28 AM EDT 05/13/2024 6:15 AM EDT Mami Ulloa MD CHEMISTRY ORDERABLES Final Resul t Performing Organization Address [facility] de Phone Number [facility] [address] [place] [address] * POTASSIUM REPEAT (05/12/2024 12:55 PM EDT) Potassium 3.8 3.5 - 5.0 mmol/L 05/12/2024 1:23 PM EDT [facility] Blood VENOUS BLOOD / Unknown Venipuncture / Unknown 05/12/2024 12:55 PM EDT 05/12/2024 1:07 PM EDT Mami Ulloa MD CHEMISTRY ORDERABLES Final Resul t Performing Organization Address [facility] de Phone Number [facility] [address] [place] [address] * SCANNED EKG (05/11/2024 9:51 AM EDT) Anatomical Region Laterality Modality Other 05/11/2024 9:51 AM EDT us Unknown Provider IMG ECG ORDERABLES Final Result * URINALYSIS REFLEX (05/11/2024 8:32 AM EDT) UA Color Light Yellow 05/11/2024 8:40 AM EDT [facility] UA Appear Clear Clear 05/11/2024 8:40 AM EDT [facility] UA Glucose Negative Negative mg/dL 05/11/2024 8:40 AM EDT [facility] UA Ketones Negative Negative mg/dL 05/11/2024 8:40 AM EDT [facility] UA Blood Negative Negative 05/11/2024 8:40 AM EDT [facility] UA pH 6.0 5.0 - 8.0 pH 05/11/2024 8:40 AM EDT [facility] UA Protein Negative Negative mg/dL 05/11/2024 8:40 AM EDT [facility] UA Urobilinogen Normal <=1 mg/dL 8:40 AM EDT [facility] UA Bili Negative Negative 05/11/2024 8:40 AM EDT [facility] UA Nitrite Negative Negative 05/11/2024 8:40 AM EDT [facility] UA Leuk Est Negative Negative 05/11/2024 8:40 AM EDT [facility] UA Spec Grav 1.020 1.001 - 1.035 no units 05/11/2024 8:40 AM EDT [facility] Comment:Reference range jordon d for random specimens only. Urine STRUCTURE OF URINARY TRACT PROPER / Unknown 05/11/2024 8:32 AM EDT 05/11/2024 8:36 AM EDT us Gavin Batista MD URINE ORDERABLES Final Resul t Performing Organization Address City/[facility] de Phone Number [facility] [address] [place], [place] [id number] * EXTRA [place] URINE CX (05/11/2024 8:32 AM EDT) Urine STRUCTURE OF URINARY TRACT PROPER / Unknown 05/11/2024 8:32 AM EDT 05/11/2024 8:36 AM EDT us Gavin Batista MD MICROBIOLOGY - GENERAL ORDER HORACIO Final Result Performing Organization Address City/[facility] Co de Phone Number [facility] [address] [place] [address] * REPEAT LACTIC ACID (05/10/2024 4:48 PM EDT) Only the most recent of2 resultswithin the time period is included. Lactic Acid 1.2 0.5 - 1.9 mmol/L 05/10/2024 5:11 PM EDT [facility] Blood VENOUS BLOOD / Unknown Venipuncture / Unknown 05/10/2024 4:48 PM EDT 05/10/2024 4:53 PM EDT Gavin Batista MD CHEMISTRY ORDERABLES Final R esult Performing Organization Address [facility] Co de Phone Number [facility] [address] [place] [address] * TROPONIN-T HIGH SENSITIVITY 2HR (05/10/2024 3:02 PM EDT) cl-[id number]-D 2HR 9 <22 ng/L 05/10/2024 3:39 PM EDT [facility] Comment:See the website dom nayeli for rule out HI care pathway, conditions other than AMI that can cause elevated hs cTnT, and comparison of values from the 4th and 5th generation Ashley tests. https://askmayoexpert.[email or web address]/topic/clinical-answers/gnt-82636873/cpm-[email or web address] 06117 hs-cTnT 2Hr Delta from Baseline -3 <4 ng/L 05/10/2024 3:39 PM EDT [facility] Blood VENOUS BLOOD / Unknown Venipuncture / Unknown 05/10/2024 3:02 PM EDT 05/10/2024 3:12 PM EDT Narrative [facility] - 05/10/2024 3:39 PM EDT Ingestion of arelis doses of biotin (>5 mg/day) taken within 8 hours of drawing blood sample can interfere with this immunoassay test. Gavin Batista MD CHEMISTRY ORDERABLES Final R esult Performing Organization Address [facility] de Phone Number [facility] [address] [place] [address] * BLOOD CULTURE (NO STAIN) (05/10/2024 3:02 PM EDT) Only the most recent of2 resultswithin the time period is included. Culture Result No Growth at 120 hours. BLOOD CULTURE (NO STAIN) 05/15/2024 9:00 PM EDT [facility] Blood VENOUS BLOOD / Unknown Venipuncture / Unknown 05/10/2024 3:02 PM EDT 05/10/2024 3:14 PM EDT Gavin Batista MD MICROBIOLOGY - GENERAL ORDER HORACIO Final Result Performing Organization Address [facility] de Phone Number [facility] [address] [facility] , [place] [address] * (ABNORMAL) LACTIC ACID (05/10/2024 1:12 PM EDT) Lactic Acid 2.6(H) 0.5 - 1.9 mmol/L 05/10/2024 1:34 PM EDT [facility] Blood VENOUS BLOOD / Unknown Venipuncture / Unknown 05/10/2024 1:12 PM EDT 05/10/2024 1:16 PM EDT Gavin Batista MD CHEMISTRY ORDERABLES Final R esult Performing Organization Address [facility] Co de Phone Number [facility] [address] [place] [address] * CT ANGIOGRAM CHEST ABDOMEN W CONTRAST [...] arteries (single right and single left), and SEDRICK are patent and normal caliber. Coronary artery [...] arteries (single right and single left), and SEDRICK are patentand normal caliber. Coronary artery calcification: [...] please contactthe office of the ordering clinician. Gavin Batista MD IMG CT ORDERABLES Final Resu lt * BB HISTORY CHECK (05/10/2024 12:38 PM EDT) HISTORY CHECK (1) No Previous History 05/10/2024 12:51 PM EDT [facility] Blood VENOUS BLOOD / Unknown Venipuncture / Unknown 05/10/2024 12:38 PM EDT 05/10/2024 12:41 PM EDT Gavin Batista MD BLOOD BANK ORDERABLES Final Result [facility] [address] [place], [place] [id number] * ABOR (05/10/2024 12:38 PM EDT) Pathologist Health system Int B NEG 05/10/2024 1:3 7 PM EDT [facility] Blood VENOUS BLOOD / Unknown Venipuncture / Unknown 05/10/2024 12:38 PM EDT 05/10/2024 12:41 PM EDT Gavin Batista MD BLOOD BANK ORDERABLES Final Result Performing Organization Address City/[facility]/ZIP Co de Phone Number [facility] [address] [place] [address] * ANTIBODY SCREEN IGG (05/10/2024 12:38 PM EDT) ABSC IgG Int Negative 05/10/2024 1:37 PM EDT [facility] Blood VENOUS BLOOD / Unknown Venipuncture / Unknown 05/10/2024 12:38 PM EDT 05/10/2024 12:41 PM EDT Gavin Batista MD BLOOD BANK ORDERABLES Final Result Performing Organization Address [facility] Phone Number [facility] [address] [place] [address] * TROPONIN-T HIGH SENSITIVITY BASELINE W/ REFLEX (05/10/2024 12:37 PM EDT) tt-eTpdqtzjr-U 12 <22 ng/L 05/10/2024 1:10 PM EDT [facility] Comment:See the website Beisen for rule out HI care pathway, conditions other than AMI that can cause elevated hs cTnT, and comparison of values from the 4th and 5th generation Ashley tests. https://askmayoexpert.[email or web address]/topic/clinical-answers/gnt-04595360/cpm-[email or web address] [address] Blood VENOUS BLOOD / Unknown Venipuncture / Unknown 05/10/2024 12:37 PM EDT 05/10/2024 12:41 PM EDT Narrative [facility] - 05/10/2024 1:10 PM EDT Ingestion of arelis doses of biotin (>5 mg/day) taken within 8 hours of drawing blood sample can interfere with this immunoassay test. Gavin Batista MD CHEMISTRY ORDERABLES Final R esult Performing Organization Address [facility] Co de Phone Number [facility] [address] [facility] [place] [address] * EXTRA LIGHT BLUE (05/10/2024 12:37 PM EDT) Blood VENOUS BLOOD / Unknown Venipuncture / Unknown 05/10/2024 12:37 PM EDT 05/10/2024 12:43 PM EDT Gavin Batista MD HEMATOLOGY ORDERABLES Final Result [facility] [address] [place] [address] * (ABNORMAL) CBC (05/10/2024 12:37 PM EDT) WBC 13.9(H) 3.7 - 10.3 x10(3)/mcL 05/10/2024 12:45 PM EDT [facility] RBC 5.36 4.60 - 6.10 x10(6)/mcL 05/10/2024 12:45 PM EDT [facility] Hgb 17.0 13.7 - 17.5 g/dL 05/10/2024 12:45 PM EDT [facility] Hct 48.3 40.0 - 51.0 % 05/10/2024 12:45 PM EDT [facility] MCV 90.1 80.0 - 100.0 fL 05/10/2024 12:45 PM EDT [facility] MCH 31.7 26.0 - 34.0 pg 05/10/2024 12:45 PM EDT [facility] MCHC 35.2 30.7 - 35.5 g/dL 05/10/2024 12:45 PM EDT [facility] RDW 13.2 <=14.9 % 05/10/2024 12:45 PM EDT [facility] Platelet 245 155 - 369 x10(3)/mcL 05/10/2024 12:45 PM EDT [facility] MPV 10.2 8.8 - 12.5 fL 05/10/2024 12:45 PM EDT [facility] Blood VENOUS BLOOD / Unknown Venipuncture / Unknown 05/10/2024 12:37 PM EDT 05/10/2024 12:41 PM EDT us Gavin Batista MD HEMATOLOGY ORDERABLES Final Result Performing Organization Address [facility] de Phone Number [facility] [address] [facility] [place] [address] * PROCALCITONIN (05/10/2024 12:37 PM EDT) Procalcitonin 0.09 <=0.49 ng/mL 05/10/2024 1:15 PM EDT [facility] Blood VENOUS BLOOD / Unknown Venipuncture / Unknown 05/10/2024 12:37 PM EDT 05/10/2024 12:42 PM EDT Narrative [facility] - 05/10/2024 1:15 [...] to severe sepsis and/or septic shock. us aGvin Batista MD CHEMISTRY ORDERABLES Final R esult Performing Organization Address [facility] de Phone Number [facility] [address] [place] [address] * (ABNORMAL) NT PROBNP (05/10/2024 12:37 PM EDT) [facility] NT Pro-BNP 287(H) <=229 pg/mL 05/10/2024 1:10 PM EDT [facility] Blood VENOUS BLOOD / Unknown Venipuncture / Unknown 05/10/2024 12:37 PM EDT 05/10/2024 12:41 PM EDT Narrative [facility] - 05/10/2024 1:10 [...] ORDERABLES Final R esult Performing Organization Address [facility] Co de Phone Number [facility] [address] [place] [address] * LIPASE LEVEL (05/10/2024 12:37 PM EDT) [facility] Lipase Lvl 37 13 - 60 U/L 05/10/2024 1:10 PM EDT [facility] Blood VENOUS BLOOD / Unknown Venipuncture / Unknown 05/10/2024 12:37 PM EDT 05/10/2024 12:41 PM EDT Gavin Batista MD CHEMISTRY ORDERABLES Final R esult Performing Organization Address [facility] Co de Phone Number [facility] [address] [place] [address] * ALCOHOL MEDICAL (05/10/2024 12:37 PM EDT) [facility] Alcohol Medical <10 <=10 mg/dL 1:30 PM EDT [facility] Comment: 50-100 mg/dL - [place], slowing of reflexes, impaired visual acuity > 100 mg/dL - Depression of PILOT INSTRUCTOR > 400 mg/dL - Fatalities reported Blood VENOUS BLOOD / Unknown Venipuncture / Unknown 05/10/2024 12:37 PM EDT 05/10/2024 12:41 PM EDT Gavin Batista MD CHEMISTRY ORDERABLES Final R esult Performing Organization Address City/[facility] Co de Phone Number [facility] [address] [place] [address] * HEPATIC FUNCTION PANEL (05/10/2024 12:37 PM EDT) [facility] Total Protein 7.4 6.4 - 8.3 gm/dL 05/10/2024 1:10 PM EDT [facility] Albumin 4.6 3.2 - 4.6 gm/dL 05/10/2024 1:10 PM EDT [facility] Bili Direct <0.2 0.0 - 0.3 mg/dL 05/10/2024 1:10 PM EDT [facility] Bili Total 0.4 0.2 - 1.4 mg/dL 05/10/2024 1:10 PM EDT [facility] AST 28 <=40 U/L 05/10/2024 1:10 PM EDT [facility] ALT 39 <=41 U/L 05/10/2024 1:10 PM EDT [facility] Alk Phos 90 40 - 129 U/L 05/10/2024 1:10 PM EDT [facility] Blood VENOUS BLOOD / Unknown Venipuncture / Unknown 05/10/2024 12:37 PM EDT 05/10/2024 12:41 PM EDT Gavin Batista MD CHEMISTRY ORDERABLES Final R esult [facility] [address] [place] [address] * EK EKG 12 LEAD (05/10/2024 12:28 PM EDT) Anatomical Region Laterality Modality Electrocardiogra phy 05/10/2024 12:3 3 PM EDT Impressions 05/10/2024 4:[address] [facility] Test Date: 2024-05-10 Pat Name: [facility] Gender: Male Radiologist Diagnostic: : 1960 Requested By: [employer]) [facility] Order Number: [id number] Reading MD: Tano Marie Measurements Intervals [place] Rate: 98 P: 220 ND: 322 QRS: -90 QRSD: 142 T: 51 QT: 390 QTc: 498 Interpretive Statements ELECTRONIC ATRIAL PACEMAKER ELECTRONIC VENTRICULAR PACEMAKER ABNORMAL RHYTHM ECG WARNING: DATA QUALITY MAY AFFECT INTERPRETATION WHEN COMPARED TO PREVIOUS ECG:NO SIGNIFICANT CHANGES ARE NOTED Electronically Signed On 05-10-2024 16:56:57 EDT by Tano Marie Narrative Procedure Note Tano Marie MD - 05/10/[address] [facility] Test Date: 2024-05-10 Pat Name: [facility] Department: [facility] Room: [facility] Gender: Male Radiologist Diagnostic: : 1960 Requested By: [facility] Order Number: [id number] Reading MD: Tano Marie Measurements Intervals [place] Rate: 98 P: 220 ND: 322 QRS: -90 QRSD: 142 T: 51 QT: 390 QTc: 498 Interpretive Statements ELECTRONIC ATRIAL PACEMAKER ELECTRONIC VENTRICULAR PACEMAKER ABNORMAL RHYTHM ECG WARNING: DATA QUALITY MAY AFFECT INTERPRETATION WHEN COMPARED TO PREVIOUS ECG:NO SIGNIFICANT CHANGES ARE NOTED Electronically Signed On 05-10-2024 16:56:57 EDT by Tano Marie us Gavin Batista MD IMG ECG ORDERABLES Final Res ult * (ABNORMAL) HEMOGLOBIN A1C (04/10/2024 1:37 PM EST) Hgb A1C 7.2(H) 4.2 - 5.6 % 04/10/2024 10:14 PM EST [facility], [facility] Est. Avg Glucose 160 mg/dL 04/10/2024 10:14 PM EST [facility] Blood VENOUS BLOOD / Unknown Venipuncture / Unknown 04/10/2024 1:37 PM EST 04/10/2024 1:37 PM EST Narrative [employer] [facility] - 04/10/2024 10:14 PM EST REFERENCE RANGE: Normal: 4.0-5.6% Pre-diabetes: 5.7-6.4% Provisional diagnosis of diabetes: >6.4% Hgb F>10% and anything which shortens red cell survival, such as hemolytic anemia, or unstable hemoglobin variants such as HbSS, HbSC, or HbCC, will lower the HbA1c value associated with a given level of glycemic control. us Mila Lange MD CHEMISTRY ORDERABLES Final Res ult [employer] [facility] [address] [facility] [address] [place] [id number] [facility] [address] [place] [id number] * (ABNORMAL) LIPID SCREEN (04/10/2024 1:37 PM EST) Cholesterol 165 <200 mg/dL 04/10/2024 9:07 PM EST [facility] Comment: < 200 Desirable 200 - 239 Borderline High >= 240 High Triglyceride 165(H) <150 mg/dL 04/10/2024 9:07 PM EST [employer] [facility] Comment: < 150 Normal 150 - 199 Borderline High 200 - 499 High >= 500 Very High HDL 41 >=40 mg/dL 04/10/2024 9:07 PM EST [employer] [facility] Comment: > 60 Optimal 40 - 60 Acceptable < 40 Low LDL Calculated 95 <100 mg/dL 04/10/2024 9:07 PM EST [employer] [facility] Comment: < 100 Optimal 100 - 129 Near or above optimal 130 - 159 Borderline High 160 - 189 High >= 190 Very High The National Institutes of Health (NIH) equation is used for all lipid panels that report calculated LDL (LDL-C). Non-HDL-C Calculated 124 <=129 mg/dL 04/10/2024 9:07 PM EST [facility] Comment: <130 Desirable 130-159 Above Desirable 160-189 Borderline High 190-219 High >= 220 Very High Fasting Specimen? Yes None 025 9:07 PM EST [facility] Blood VENOUS BLOOD / Unknown Venipuncture / Unknown 04/10/2024 1:37 PM EST 04/10/2024 1:37 PM EST us Mila Lange MD CHEMISTRY ORDERABLES Final Res ult Performing Organization Address [facility]/ZIP Co de Phone Number PREFERRED LAB [facility], [facility] [address] [phone] [facility] [address] [place] [id number] * MICROALBUMIN/CREATININE RATIO URINE (01/19/2024 3:09 PM EST) Urine Microalb <12.0 mg/L 01/19/2024 8:46 PM EST [facility], [facility] Urine Creatinine 45.1 mg/dL 01/19/20 24 8:46 PM EST [facility], [facility] Ur Microalb/Creat 024 8:46 PM EST [facility], [facility] Comment: Because the albumin level is below [...] URINE ORDERABLES Final Result Performing Organization Address [facility] Co de Phone Number PREFERRED [employer], [facility] [address] , [address] [phone] * ACUTE HEPATITIS PANEL (04/10/2019 9:08 AM EST) Hep Bs Ag Non-Reacti ve Non-Reacti ve 04/10/2019 3:08 PM EST [facility] Hep B Core IgM Non-Reacti ve Non-Reacti ve 04/10/2019 3:08 PM EST [facility]REF[facility]ED [facility], [facility] Hep A IgM Non-Reacti ve Non-Reacti ve 04/10/2019 3:08 PM EST [facility], [facility] Hep C Ab Non-Reacti ve Non-Reacti ve 04/10/2019 3:08 PM EST [facility] Blood VENOUS BLOOD / Unknown Venipuncture / Unknown 04/10/2019 9:08 AM EST 04/10/2019 9:08 AM EST us Mila Lange MD CHEMISTRY ORDERABLES Final Res ult Performing Organization Address City/[facility]/ZIP Co de Phone Number [facility] [address] , [place] [address] * DIABETES EYE EXAM (09/18/2018) us Historical Provider HEALTH MAINTENANCE Final Res ult Performing Organization Address City/[facility] Co de Phone Number SEP OFFICE from Last 3 Months or Most Recently Relevant to Health Maintenance Insurance FRANNIE HARRINGTON MR FRANNIE HARRINGTON MR Member Subscriber Plan / Payer (Ef fective 2024-Present) Name:Tashi Matrin Jr. Relation to Subscriber:Self Name:Tashi Martin Jr. Payer ID:Not on file Group ID:[id number] Type:Not on file Address: [address] FRANNIE HARRINGTON MR Member Subscriber Plan / Payer (Ef fective 2024-Present) Name:Tashi Martin Jr. Relation to Subscriber:Self Name:Tashi Martin Jr. Payer ID:Not on file Group ID:[id number] Type:Not on file Address: [address] Advance Directives For more information, please contact: [phone] * Full Code (Latest Code Status on [...] 5:12 AM 02/16/2024 11:29 PM Care Teams Cad Application Support Specialist Relationship Specialty Start Date End Date Mila Lange MD [address] [place] [address] PCP - General Family Medicine 06/22/11
[2024-08-02 10:49] LABS: Basophils # 0.1 K/mm3 (0-0.2); Basophils % 0.6 % (0.1-2.0); Eosinophils # 0.3 Kmm3 (0.0-0.4); Eosinophils % 3.1 % (0.1-12.0); Hematocrit 43.8 % (42.0-52.0); Hemoglobin 15.5 g/dL (14.1-18.0); Immature Granulocytes # 0.02 10^3uL; Immature Granulocytes % 0.2 %; Lymphocytes % 46.7 % (10-50); Mean Corpuscular HGB Conc 35.4 g/dL (31.8-35.4); Mean Corpuscular Hemoglobin 31.3 pg (27.0-31.2); Mean Corpuscular Volume 88.3 fl (80-94); Mean Platelet Volume 10.5 fl (7.4-10.4); Monocytes # 0.7 K/mm3 (0.1-1.0); Monocytes % 6.4 % (1.7-9.3); Neutrophils # 4.6 K/mm3 (1.8-7.8); Nucleated Red Blood Cells # 0 10^3/uL; Nucleated Red Blood Cells % 0 %; Platelet Count 218 K/mm3 (142-424); Red Blood Count 4.96 M/mm3 (4.60-6.20); Red Cell Distribution Width-SD 41.9 fL; White Blood Count 10.7 K/mm3 (4.8-10.8)
[2024-08-02 11:06] LABS: MANUAL DIFFERENTIAL MANUAL DIFFERENTIAL (MANUAL DIFF)
--- OUTSIDE RECORDS SUMMARY | 2024-08-02 11:16 | XMS_ITS | CCD ---
Author Organization Unknown Care Team Providers Care Equine Manager Name Role Phone Unavailable Primary Care Provider Unavailabl e Unavailable Chronic Care Management Unavaila ble Summary Purpose DataExchange Insurance Providers Payer name Policy type / Coverage type Covered libertarian ID Effective Begin Date Effective End Date [facility] [id number] Unknown Unknown Family History Family History data not found Medication Administered No Medication Administered data Reason For Visit No Reason For Visit data Medical Equipment No Medical Equipment data Advance Directives No Advance Directive data
--- OUTSIDE RECORDS SUMMARY | 2024-08-02 11:16 | XMS_ITS | CCD ---
Author Organization Unknown Care Team Providers Care Backer Up Name Role Phone Unavailable Primary Care Provider Unavailabl e Unavailable Chronic Care Management Unavaila ble Summary Purpose DataExchange Insurance Providers Payer name Policy type / Coverage type Covered libertarian ID Effective Begin Date Effective End Date [facility] [id number] Unknown Unknown Family History Family History data not found Medication Administered No Medication Administered data Reason For Visit No Reason For Visit data Medical Equipment No Medical Equipment data Advance Directives No Advance Directive data
[2024-08-02 11:33] LABS: Albumin Level 4.5 g/dl (3.5-5.0); Chloride 102 mmol/L (98-107); Potassium 4.3 mmoL/L (3.5-5.1); Sodium 141 mmol/L (136-145)
[2024-08-02 11:36] LABS: Alanine Aminotransferase 30 U/L (12-78); Alkaline Phosphatase 76 U/L (38-126); Anion Gap 16.3 mEq/L (5-15); Aspartate Amino Transferase 33 U/L (17-59); Bilirubin,Direct 0.1 mg/dl (0.0-0.4); Bilirubin,Indirect 0.3 mg/dL (0.0-0.9); Bilirubin,Total 0.4 mg/dl (0.2-1.3); Bilirubin,Unconjugated 0.3 mg/dL (0.0-1.1); Blood Urea Nitrogen 13 mg/dl (9-20); Calcium 9.4 mg/dl (8.4-10.2); Carbon Dioxide 27 mmol/L (22.0-30.0); Cholesterol 143 mg/dl (140-200); Estimated Glomerular Filt Rate 97 ml/min (>60); GFR (African American) 117 ML/MIN (>60); Glucose 148 mg/dl (74-100); Magnesium 1.5 mg/dl (1.6-2.3); Total Protein,Serum 6.8 g/dl (6.3-8.2); Triglycerides 223 mg/dl (30-150); VLDL Cholesterol 45 mg/dL (0-40)
[2024-08-02 11:37] LABS: Chol/HDL Ratio 4.5 (1-3.5); HDL Cholesterol 32 mg/dl (40-60)
[2024-08-02 11:48] LABS: Direct LDL Cholesterol 71.43 mg/dL (100-129)
[2024-08-02 11:53] LABS: Free T4 (Free Thyroxine) 0.92 ng/dl (0.78-2.19)
[2024-08-02 12:07] LABS: Eosinophils % 1 % (0-3); Lymphocytes % 48 % (10-50); Monocytes % 9 % (2-9); Neutrophils % 42 % (42-76); Platelet Estimate Normal; RBC Morphology Normal; Thyroid Stimulating Hormone 0.78 uIU/mL (0.465-4.68); Total Cells Counted 100
== END 2024-08-02 23:59 | disposition home or self-care (01) ==
LOC: LAB 10:14
PROVIDERS: PCP Family Medicine; Visit Provider Internal Medicine
DX: I45.2 Bifascicular block (principal); I25.10 Atherosclerotic heart disease of native coronary artery without angina pectoris; I10 Essential (primary) hypertension; R94.31 Abnormal electrocardiogram [ECG] [EKG]
CPT/HCPCS: 36415; 80048; 80061; 80076; 83735; 84439; 84443; 85007; 85025; 85027; 93270

== ENCOUNTER 2024-08-09 06:48 | Outpatient (CLI) | payer MEDICARE, SELFPAY ==
--- NOTE | 2024-08-09 | CA_ITS ---
APPROVED REPORT Exam: Pharmacologic Ht: 6 ft 0 in Wt: 214 lbs BSA: 2.19 m2 HR: 71 bpm BP: 110/71 mmHg Medical History Cardiac Risk Factors: HTN, Hyperlipidemia, Diabetes (non-insulin), FHX of CAD, Smoking Stress Test Details HR Resting HR: 71 bpm Max Heart Rate (APMHR): 154.877350 bpm Target HR (85% APMHR): 130.230866 bpm Recovery HR: 70 bpm BP Resting BP: 110.0/71.0 mmHg Recovery BP: 98.0/64.0 mmHg ECG Stress ECG Conclusion During lexiscan pt experinced SOA and became lightheaded. PVCs noted. EKG nondiagnostic familia. Electronically signed by : Kymberly Conklin MD 08/09/2024 12:37:22
--- OUTSIDE RECORDS SUMMARY | 2024-08-09 06:51 | XMS_ITS | Clinical Summary ---
Author Organization [facility] Address [address] [place] [address] Phone Care Team Providers Care Business Planning Manager Name Role Phone Cornelia De Leon MD Conditions or Problems Problem Name Problem Code Onset Date Status Entry Date Provider Comment Standard Description Annotate *AFTERCARE FOLLOW SURGERY, NERVOUS SYSTEM NEC Z48.811 (ICD-10-CM) Active Cornelia De Leon MD Encounter for surgical aftercare following surgery on the nervous system RADICULOPATHY , LUMBAR REGION M54.16 (ICD-10-CM) Active Aakash Morfin Radiculopathy , lumbar region UNSPECIFIED PRE-OPERATIVE EXAMINATION 947333724 (SNOMED CT) Active Ritika Gonzalez History and physical examination for surgical clearance LUMBOSACRAL RADICULITIS 23394020 (SNOMED CT) Active Cornelia De Leon MD Lumbosacral radiculitis OVERWEIGHT 177254519 (SNOMED CT) Active Cornelia De Leon MD Overweight Medications Medication Instructions Start Date Stop Date Generic Name [facility] Provider HIBICLENS 4 % EXTERNAL LIQUID Wash the entire back and hip/buttock areas the night prior to the surgey CHLORHEXIDINE GLUCONATE [id number] Cornelia De Leon MD HIBICLEJUANITA 4 % EXTERNAL LIQUID Wash the entire back and hip/buttock areas the night prior to the surgey CHLORHEXIDINE GLUCONATE 40305895997 Cornelia De Leon MD ACCU-CHEK FASTCLIX LANCETS Non-[place] LANCETS 89896299830 Cornelia De Leon MD LISINOPRIL 20 MG TABS 1 daily Non- LISINOPRIL 53370716330 Cornelia De Leon MD SILDENAFIL CITRATE 20 MG TABS 1 tid Non- SILDENAFIL CITRATE 67329456832 Cornelia De Leon MD TAMSULOSIN HCL 0.4 MG CAPS 1 qhs Non- TAMSULOSIN HCL 29282050804 Cornelia De Leon MD BREO ELLIPTA 100-25 MCG/ACT AEPB 1 daily Non- FLUTICASONE FUROATE-VILANTER OL 68386835870 Cornelia De Leon MD DILTIAZEM HCL ER COATED BEADS 120 MG [id number] 1 daily Non- DILTIAZEM HCL COATED BEADS 28086963329 Cornelia De Leon MD METOPROLOL SUCCINATE ER 100 MG [id number] 1 daily Non- METOPROLOL SUCCINATE 57145425814 Cornelia De Leon MD ATORVASTATIN CALCIUM 40 MG TABS 1 qhs Non- ATORVASTATIN CALCIUM 59904509461 Cornelia De Leon MD STRESS PLUS ZINC TABS 1 daily Non- B [id number] 21244070033 Cornelia De Leon MD FENOFIBRATE MICRONIZED 134 MG CAPS 1 daily Non- FENOFIBRATE MICRONIZED 29901889649 Cornelia De Leon MD TIZANIDINE HCL 4 MG TABS 1 qhs - TIZANIDINE HCL 80027441362 Cornelia De Leon MD NORTRIPTYLINE HCL 25 MG CAPS 1 qhs Non- NORTRIPTYLINE HCL 69996567506 Cornelia De Leon MD CO Q 10 CAPS 1 daily Non- COENZYME Q10 CAPS 25982723381 Cornelia De Leon MD OXYCODONE-ACETAM INOPHEN 5-325 MG TABS 1 po q 6 hours Non- OXYCODONE-ACETAM INOPHEN 80599717710 Cornelia De Leon MD OMEPRAZOLE 40 MG CPDR 1 daily Non- OMEPRAZOLE 71067828188 Cornelia De Leon MD METFORMIN HCL ER 500 MG [id number] 1 daily Non- METFORMIN HCL 97873593108 Cornelia De Leon MD ASPIRIN ADULT LOW DOSE 81 MG TBEC 1 daily Non-Tellez ASPIRIN 91319533830 Cornelia De Leon MD FUROSEMIDE 40 MG TABS 1 daily Non-Tellez FUROSEMIDE 76055709190 Cornelia De Leon MD POTASSIUM CHLORIDE ZULEMA ER 20 MEQ CR-TABS 1 daily Non-Tellez POTASSIUM CHLORIDE ZULEMA CR 56227162346 Cornelia De Leon MD BACLOFEN TABS 1 tid Non-Tellez BACLOFEN TABS 36318412132 Cornelia De Leon MD Medications Administered No [...] Procedures Code Procedure Name Date Entry Date [address]9079 MRI Thoracic Spine 1 Vital Signs Date [...]
--- OUTSIDE RECORDS SUMMARY | 2024-08-09 06:51 | XMS_ITS | Encounter Summary ---
Author Organization [place] [address] Care Team Providers Care Wildlife Conservation Officer Name Role Phone Mila Lange MD Primary Care Provider [phone] Reason for Visit * Reason Onset Date Comments Medication Management 07/05/2024 Extruding Department Supervisor Plaster Maker: [facility] [phone] Encounter Details Date Type Department Care Team (Late st Contact Info) Description 07/05/2024 Patient Outreach SEP [facility] [address] [place] [address] Missy Wright CPhT Medication Management (Extruding Department Supervisor Plaster Maker: [facility] [phone]/) Social History Tobacco Use Types Packs/Day Years [...] reports drinking 4 shots of whiskey tonight [facility] Utilities Answer Date Recorded In the past [...] Date Recorded PHQ-2 Total Score 0 05/11/2024 [facility] - Occupational Stress Questionnaire Answer Date Recorded [...] things needed for daily living? No 01/12/2023 [facility] IP Transportation Answer D ate [...] Tashi Martin Jr. was contacted by Clinical Plaster Maker for OUTCOMES COMPREHENSIVE MEDICATION REVIEW (CMR). Clinical Control Analyst outreaching to patient to attempt to schedule schedule pharmacist Outcomes appointment, patient also TIPS eligible. Adherence on Needs check-in (antidepressant- SNRI) and Needs drug therapy for ACEI/ARB (CAD) This is the FIRST attempt to reach patient. hay buckler unable to reach patient. hay buckler left voice mail with call back number of [phone]. Next outreach by Clinical hay buckler on or around 08/05/24 if applicable. [employer] not set up; unable to send [employer] message Missy Wright CPhT documented in this [...] documented as of this encounter Care Teams Wildlife Conservation Officer Relationship Specialty Start Date End Date Mila Lange MD [address] [place] [address] PCP - General Family Medicine 06/22/11 documented as of this encounter
--- OUTSIDE RECORDS SUMMARY | 2024-08-09 06:52 | XMS_ITS | Clinical Summary ---
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 [place] too please. May increase 2 units per day until fasting blood sugar is 80-110. Max potential is 100 units 18 mL 3 01/25/20 Active Additional Information Patient taking differently: 36 UnitsSubcutaneous NIGHTLY, [place] too please. May increase 2 units per [...] 03/23/19 25 Active DEXCOM G7 SENSOR [facility] DeviceIndicatio ns:Type 2 diabetes mellitus with hyperglycemia, without long-term current use of insulin ([facility]) 1 Each by [facility].(Non-Drug; Combo Route) route every 10 days. Follow [...] 25 Active ACCU-CHEK GUIDE TEST STRIPS [facility] StripIndication s:Type 2 diabetes mellitus without complication, without long-term current use of insulin ([facility]) TEST BLOOD SUGAR TWICE DAILY 100 Strip 04/26/19 25 Active ACCU-CHEK SOFTCLIX LANCETS [facility] USE TO TEST BLOOD SUGAR [...] migh t be different from the original. [facility] - Dr. 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 A1c 9.7 on 01/19/2024 [...] (07/29/2021): Added automatically from request for surgery [id number] Assessment & Plan (02/02/2024 12:58 PM EST): History of [place] Consider baby aspirin, consider statin PAF (paroxysmal [...] PM EST): On beta-demetri, not on anticoagulation 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 Assessment & Plan (01/21/2024 1:41 PM EST): [...] (02/02/2024 12:58 PM EST): Not on treatment 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 History of pneumothorax 09/04/2014 Overview (09/04/2014): 08/2014 [...] (02/02/2024 12:58 PM EST): Not on treatment 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 Tobacco use Assessment & Plan (02/02/2024 12:58 [...] SEP [facility] [address] [place] [address] Missy Wright CPhT Medication Management ([place] 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 [phone]/) 06/08/2024 Patient Outreach [facility] [address] [place] [address] Nery Mccartney, RN CM- Longitudinal Graduation 06/06/[address] [address] Irma Briceño, English Lecturer Other (Multiple No Shows) 05/31/2024 Patient Outreach [facility] [address] [place] [address] Nery Mccartney, RN CM- Telephonic Outreach; CM- Longitudinal Continued 05/29/2024 Refill SEP [facility] [address] [place] [address] Mila Lange MD Medication Refill 05/24/2024 1:30 PM EDT Office Visit SEP [facility] [address] [place] [address] Mila Lange MD Chronic diastolic congestive [...] Patient Outreach SEP Care Managment [address] Appointment [place] [address] Michaela Gamboa RN Hospital Follow Up; Care Transition; Care Management - Chart Review 05/10/2024 12:28 PM EDT - 05/13/2024 2:40 PM EDT Hospital Encounter [facility] [address] [place] [address] Gavin Batista MD Moise, Ephese, MD Colitis (Primary Dx); Hypotension due to hypovolemia Discharge Disposition: Home or Self Care 05/10/2024 Travel from Last 3 Months Immunizations Immunization Administration Dates Next Due Influenza Vaccine Quadrivalent 11/01/2017,2017 Influenza Vaccine Quadrivalent PF 11/15/2014 Influenza Virus Vaccine Quad rivalant, Flublok 02/05/2019(Deferred: Other - pt already recieved flu shot- see APR record),02/04/2019 Pneumococcal Conjugate Vacci ne 20 Valent 09/17/2022 Pneumococcal Polysaccharide 23 Valent 08/25/2014 TST,Unspecified Formulation 11/24/2023, 4 Tdap 10/26/2021 Surgical History Surgery Date Site/Laterality [...] INTERVENTION(PCI) 07/31/2021 N/A CORONARY PERCUTANEOUS INTERVENTION (PCI) [[id number]]; Surgeon: Chaz Moya MD; Location: [facility]; Service: Cardiac Medical devices from this [...] Hyperlipidemia COPD (chronic obstructive pu lmonary disease) ([facility]) inhalers. O2 @ 2l/nc @ HS Blood [...] pt reports drinking 4 shots of whiskey [employer] [facility] Utilities Answer Date Recorded In [...] Date Recorded PHQ-2 Total Score 0 05/11/2024 [facility] [place] of Occupat ional Health - Occupational Stress [...] things needed for daily living? No 01/12/2023 [facility] IP Transportation Answer D ate [...] Wellness Exam Medicare 10/06/2024 10/06/2023 Influenza Vaccine (#1) 2024 9, 11/01/2017, 03/25/2017, Additional history exists Hemoglobin A1c [...] Lange MD Medical Devices Implanted Type Area Teacher Assistant Device Identifier Shelf Expiration Date Model / Serial / Lot Kit Lead Surgical Artisan 2 X 8 70cm - [id number] Implanted:Qty: 1 on 09/08/2016 by Cornelia De Leon MD at [facility] N/A: Spine Thoracic [place] [employer]NE[employer] 05/08/2018 [id number] / [id number] / [id number] 3 Kitgenerator Pulse Implantable Mri Montage Precision - [id number] Implanted:Qty: 1 on 09/08/2016 by Cornelia De Leon MD at [facility] N/A: Back [place] [employer] 08/04/2018 [facility] [id number] / [id number] / [id number] 3.5mm X 32mm Synergy Stent - [id number] Implanted:Qty: 1 on 07/31/2021 by Chaz Moya MD at [facility] N/A: LAD [employer] [employer]:CARDIAC RHYTHM MGMT [id number] 09/12/2021 [id number] / / [id number] 3.0mm X 20mm Synergy Stent - [id number] Implanted:Qty: 1 on 07/31/2021 by Chaz Moya MD at [facility] N/A: Ramus [employer] [employer]:CARDIAC RHYTHM MGMT [id number] 06/17/2022 [id number] / [id number] Procedures Procedure Name Priority Date/Time Associated Diagnosis Comments SCANNED LABS 08/07/2024 5:31 AM EDT GLUCOSE METER POC Routine 05/13/2024 11: 47 [...] 2 diabetes mellitus without complication, 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 [facility] Glucose Meter POC 132(H) 70 - 100 mg/dL 05/13/2024 11:48 AM EDT [facility] Sample Type Capillary 05/13/2024 11:48 AM EDT [facility] Patient Status Non-Critical Patient 05/13/2024 11:48 AM EDT [facility] Blood BLOOD SPECIMEN / Unknown 05/13/2024 11:47 AM EDT 05/13/2024 11:48 AM EDT Mami Ulloa MD POINT OF CARE TEST ORDERABLES Fi nal Result Performing Organization Address City/[facility]/ZIP Co de Phone Number [facility] [address] [place] [address] * ECG AND WAVEFORMS - TELEMETRY (05/13/2024 7:30 AM EDT) Only the most recent of6 resultswithin the time period is included. [facility] ECG INTERPRET NSR [facility] 05/13/2024 7:30 AM EDT Narrative [facility] - 05/13/2024 7:49 AM EDT TRO/AM ROUTINE- SR IVCD MN 0.16 QRS 0.15 RR 1.07 QT 0.48 QTc 0.46 See Clinical Report link for waveform capture us Unknown Provider POINT OF CARE CARDIOLOGY Final Result [facility] [address] [place] [address] * CBC WITH DIFF (05/13/2024 5:28 AM EDT) Only the most recent of2 resultswithin the time period is included. Pathologist [facility] WBC 7.3 3.7 - 10.3 x10(3)/mcL 05/13/2024 6:22 AM EDT [facility] RBC 4.68 4.60 - 6.10 x10(6)/mcL 05/13/2024 6:22 AM EDT [facility] Hgb 14.7 13.7 - 17.5 g/dL 05/13/2024 6:22 AM EDT [facility] Hct 41.4 40.0 - 51.0 % 05/13/2024 6:22 AM EDT [facility] MCV 88.5 80.0 - 100.0 fL 05/13/2024 6:22 AM EDT [facility] MCH 31.4 26.0 - 34.0 pg 05/13/2024 6:22 AM EDT [facility] MCHC 35.5 30.7 - 35.5 g/dL 05/13/2024 6:22 AM EDT [facility] RDW 12.7 <=14.9 % 05/13/2024 6:22 AM EDT [facility] Platelet 162 155 - 369 x10(3)/mcL 05/13/2024 6:22 AM EDT [facility] MPV 10.3 8.8 - 12.5 fL 05/13/2024 6:22 AM EDT [facility] Neut Percent 40.9 % 05/13/2024 6:22 AM EDT [facility] Comment:Neutrophils equals s egs plus bands Imm Gran% 0.4 % 05/13/2024 6:22 AM EDT [facility] Comment:Automated count of m etamyelocytes, myelocytes and promyelocytes. Lymph Percent 48.2 % 05/13/2024 6:22 AM EDT [facility] [place] Percent 7.1 % 05/13/2024 6:22 AM EDT [facility] Eos Percent 2.6 % 05/13/2024 6:22 AM EDT [facility] Baso Percent 0.8 % 05/13/2024 6:22 AM EDT [facility] Neut # 3.0 1.6 - 6.1 x10(3)/mcL 05/13/2024 6:22 AM EDT [facility] Comment:Neutrophils equals s egs plus bands IMMGRAN# 0.0 0.0 - 0.1 x10(3)/mcL 05/13/2024 6:22 AM EDT [facility] Comment:Automated count of m etamyelocytes, myelocytes and promyelocytes. An absolute IG <0.1 is reported as 0.0. Lymph # 3.5 1.2 - 3.9 x10(3)/mcL 05/13/2024 6:22 AM EDT [facility] [place] # 0.5 0.3 - 0.9 x10(3)/mcL 05/13/2024 6:22 AM EDT [facility] Eos# 0.2 0.0 - 0.5 x10(3)/[facility] 05/13/2024 6:22 AM EDT [facility] Baso # 0.1 0.0 - 0.1 x10(3)/[facility] 05/13/2024 6:22 AM EDT [facility] Blood VENOUS BLOOD / Unknown Venipuncture / Unknown 05/13/2024 5:28 AM EDT 05/13/2024 6:16 AM EDT us Mami Ulloa MD HEMATOLOGY ORDERABLES Final Resu lt [facility] [address] [id number] * (ABNORMAL) BASIC METABOLIC PANEL (05/13/2024 5:28 AM EDT) Only the most recent of3 resultswithin the time period is included. Sodium 140 136 - 145 mmol/L 05/13/2024 6:43 AM EDT [facility] Potassium 3.7 3.5 - 5.0 mmol/L 05/13/2024 6:43 AM EDT [facility] Chloride 108(H) 98 - 107 mmol/L 05/13/2024 6:43 AM EDT [facility] Total CO2 23 22 - 29 mmol/L 05/13/2024 6:43 AM EDT [facility] Anion Gap 9 7 - 16 mmol/L 05/13/2024 6:43 AM EDT [facility] Calcium 8.6(L) 8.8 - 10.4 mg/dL 05/13/2024 6:43 AM EDT [facility] Glucose Lvl 94 70 - 99 mg/dL 05/13/2024 6:43 AM EDT [facility] BUN 8 8 - 23 mg/dL 05/13/2024 6:43 AM EDT [facility] Creatinine 0.68 0.67 - 1.30 mg/dL 05/13/2024 6:43 AM EDT [facility] eGFR (CKD-EPIcr 2020) 103 >=60 mL/min/1.7 3 m2 05/13/2024 6:43 AM EDT [facility] Comment:Estimated GFR was ca lculated using the CKD-EPIcr (2020) equation refit without race. The equation is recommended by the National Kidney Foundation - [place] [employer] of Nephrology Task Force. Blood VENOUS BLOOD / Unknown Venipuncture / Unknown 05/13/2024 5:28 AM EDT 05/13/2024 6:15 AM EDT Mami Ulloa MD CHEMISTRY ORDERABLES Final Resul t Performing Organization Address City[facility] Co de Phone Number [facility] [address] [place] [address] * POTASSIUM REPEAT (05/12/2024 12:55 PM EDT) [facility] Signature Potassium 3.8 3.5 - 5.0 mmol/L 05/12/2024 1:23 PM EDT [facility] Blood VENOUS BLOOD / Unknown Venipuncture / Unknown 05/12/2024 12:55 PM EDT 05/12/2024 1:07 PM EDT Mami Ulloa MD CHEMISTRY ORDERABLES Final Resul t Performing Organization Address [facility] Co de Phone Number [facility] [address] [place] [address] * SCANNED EKG (05/11/2024 9:51 AM EDT) Anatomical Region Laterality Modality Other 05/11/2024 9:51 AM EDT us Unknown Provider IMG ECG ORDERABLES Final Result * URINALYSIS REFLEX (05/11/2024 8:32 AM EDT) UA Color Light Yellow 05/11/2024 8:40 AM EDT [facility] UA Appear Clear Clear 05/11/2024 8:40 AM EDT [facility] UA Glucose Negative Negative mg/dL 05/11/2024 8:40 AM EDT [facility] UA Ketones Negative Negative mg/dL 05/11/2024 8:40 AM EDT [facility] UA Blood Negative Negative 05/11/2024 8:40 AM EDT [facility] UA pH 6.0 5.0 - 8.0 pH 05/11/2024 8:40 AM EDT [facility] UA Protein Negative Negative mg/dL 05/11/2024 8:40 AM EDT [facility] UA Urobilinogen Normal <=1 mg/dL 8:40 AM EDT [facility] UA Bili Negative Negative 05/11/2024 8:40 AM EDT [facility] UA Nitrite Negative Negative 05/11/2024 8:40 AM EDT [facility] UA Leuk Est Negative Negative 05/11/2024 8:40 AM EDT [facility] UA Spec Grav 1.020 1.001 - 1.035 no units 05/11/2024 8:40 AM EDT [facility] Comment:Reference range jordon d for random specimens only. Urine STRUCTURE OF URINARY TRACT PROPER / Unknown 05/11/2024 8:32 AM EDT 05/11/2024 8:36 AM EDT us Gavin Batista MD URINE ORDERABLES Final Resul t [facility] [address] [place] [address] * EXTRA [place] URINE CX (05/11/2024 8:32 AM EDT) Urine STRUCTURE OF URINARY TRACT PROPER / Unknown 05/11/2024 8:32 AM EDT 05/11/2024 8:36 AM EDT Gavin Batista MD MICROBIOLOGY - GENERAL ORDER HORACIO Final Result Performing Organization Address [facility] Co de Phone Number [facility] [address] [place] [address] * REPEAT LACTIC ACID (05/10/2024 4:48 PM EDT) Only the most recent of2 resultswithin the time period is included. Lactic Acid 1.2 0.5 - 1.9 mmol/L 05/10/2024 5:11 PM EDT [facility] Blood VENOUS BLOOD / Unknown Venipuncture / Unknown 05/10/2024 4:48 PM EDT 05/10/2024 4:53 PM EDT Gavin Batista MD CHEMISTRY ORDERABLES Final R esult Performing Organization Address City[facility] de Phone Number [facility] [address] [place] [address] * TROPONIN-T HIGH SENSITIVITY 2HR (05/10/2024 3:02 PM EDT) [id number]-[id number] 2HR 9 <22 ng/L 05/10/2024 3:39 PM EDT [facility] Comment:See the website [facility] for rule out [place] care pathway, conditions other than AMI that can cause elevated hs cTnT, and comparison of values from the 4th and 5th generation Ashley tests. https://askmayoexpert.[facility].org/topic/clinical-answers/[email or web address]/[email or web address] 41196 hs-cTnT 2Hr Delta from Baseline -3 <4 ng/L 05/10/2024 3:39 PM EDT [facility] Blood VENOUS BLOOD / Unknown Venipuncture / Unknown 05/10/2024 3:02 PM EDT 05/10/2024 3:12 PM EDT Narrative [facility] - 05/10/2024 3:39 PM EDT Ingestion of raelis doses of biotin (>5 mg/day) taken within 8 hours of drawing blood sample can interfere with this immunoassay test. Gavin Batista MD CHEMISTRY ORDERABLES Final R esult Performing Organization Address [facility] de Phone Number [facility] [address] [place] [address] * BLOOD CULTURE (NO STAIN) (05/10/2024 3:02 PM EDT) Only the most recent of2 resultswithin the time period is included. Culture Result No Growth at 120 hours. BLOOD CULTURE (NO STAIN) 05/15/2024 9:00 PM EDT [facility] Blood VENOUS BLOOD / Unknown Venipuncture / Unknown 05/10/2024 3:02 PM EDT 05/10/2024 3:14 PM EDT Gavin Batista MD MICROBIOLOGY - GENERAL ORDER HORACIO Final Result Performing Organization Address [facility] de Phone Number [facility] [address] [place] [address] , [address] [place] [id number] * (ABNORMAL) LACTIC ACID (05/10/2024 1:12 PM EDT) Pathologist [facility] Lactic Acid 2.6(H) 0.5 - 1.9 mmol/L 05/10/2024 1:34 PM EDT [facility] Blood VENOUS BLOOD / Unknown Venipuncture / Unknown 05/10/2024 1:12 PM EDT 05/10/2024 1:16 PM EDT Gavin Batista MD CHEMISTRY ORDERABLES Final R esult Performing Organization Address [facility] de Phone Number [facility] [address] [place] [address] * CT ANGIOGRAM CHEST ABDOMEN W CONTRAST [...] BB HISTORY CHECK (05/10/2024 12:38 PM EDT) [facility] HISTORY CHECK (1) No Previous History 05/10/2024 12:51 PM EDT [facility] Blood VENOUS BLOOD / Unknown Venipuncture / Unknown 05/10/2024 12:38 PM EDT 05/10/2024 12:41 PM EDT Gavin Batista MD BLOOD BANK ORDERABLES Final Result [facility] [address] [place] [address] * [facility] (05/10/2024 12:38 PM EDT) Pathologist [facility] Int B NEG 05/10/2024 1:3 7 PM EDT [facility] Blood VENOUS BLOOD / Unknown Venipuncture / Unknown 05/10/2024 12:38 PM EDT 05/10/2024 12:41 PM EDT us Gavin Batista MD BLOOD BANK ORDERABLES Final Result Performing Organization Address City/[facility]/ZIP Co de Phone Number [facility] [address] [place] [address] * ANTIBODY SCREEN IGG (05/10/2024 12:38 PM EDT) ABSC IgG Int Negative 05/10/2024 1:37 PM EDT [facility] Blood VENOUS BLOOD / Unknown Venipuncture / Unknown 05/10/2024 12:38 PM EDT 05/10/2024 12:41 PM EDT us Gavin Batista MD BLOOD BANK ORDERABLES Final Result Performing Organization Address [facility] Co de Phone Number [facility] [address] [place] [address] * TROPONIN-T HIGH SENSITIVITY BASELINE W/ REFLEX (05/10/2024 12:37 PM EDT) Pathologist [facility] [id number]-[id number] 12 <22 ng/L 05/10/2024 1:10 PM EDT [facility] Comment:See the website [employer] for rule out [place] care pathway, conditions other than AMI that can cause elevated hs cTnT, and comparison of values from the 4th and 5th generation Ashley tests. https://askmayoexpert.[facility].org/topic/clinical-answers/gnt-[email or web address]/cpm-[email or web address] Blood VENOUS BLOOD / Unknown Venipuncture / Unknown 05/10/2024 12:37 PM EDT 05/10/2024 12:41 PM EDT Narrative [facility] - 05/10/2024 1:10 PM EDT Ingestion of arelis doses of biotin (>5 mg/day) taken within 8 hours of drawing blood sample can interfere with this immunoassay test. us Gavin Batista MD CHEMISTRY ORDERABLES Final R esult [facility] [address] [place] [address] * EXTRA LIGHT BLUE (05/10/2024 12:37 PM EDT) Blood VENOUS BLOOD / Unknown Venipuncture / Unknown 05/10/2024 12:37 PM EDT 05/10/2024 12:43 PM EDT us Gavin Batista MD HEMATOLOGY ORDERABLES Final Result Performing Organization Address City/[facility]/ZIP Co de Phone Number [facility] [address] [place] [address] * (ABNORMAL) CBC (05/10/2024 12:37 PM EDT) WBC 13.9(H) 3.7 - 10.3 x10(3)/mcL 05/10/2024 12:45 PM EDT [facility] RBC 5.36 4.60 - 6.10 x10(6)/mcL 05/10/2024 12:45 PM EDT [facility] Hgb 17.0 13.7 - 17.5 g/dL 05/10/2024 12:45 PM EDT [facility] Hct 48.3 40.0 - 51.0 % 05/10/2024 12:45 PM EDT [facility] MCV 90.1 80.0 - 100.0 fL 05/10/2024 12:45 PM EDT [facility] MCH 31.7 26.0 - 34.0 pg 05/10/2024 12:45 PM EDT [facility] MCHC 35.2 30.7 - 35.5 g/dL 05/10/2024 12:45 PM EDT [facility] RDW 13.2 <=14.9 % 05/10/2024 12:45 PM EDT [facility] Platelet 245 155 - 369 x10(3)/mcL 05/10/2024 12:45 PM EDT [facility] MPV 10.2 8.8 - 12.5 fL 05/10/2024 12:45 PM EDT [facility] Blood VENOUS BLOOD / Unknown Venipuncture / Unknown 05/10/2024 12:37 PM EDT 05/10/2024 12:41 PM EDT us Gavin Batista MD HEMATOLOGY ORDERABLES Final Result Performing Organization Address [facility] de Phone Number [facility] [address] [place] [address] * PROCALCITONIN (05/10/2024 12:37 PM EDT) Procalcitonin 0.09 <=0.49 ng/mL 05/10/2024 1:15 PM EDT [facility] Blood VENOUS BLOOD / Unknown Venipuncture / Unknown 05/10/2024 12:37 PM EDT 05/10/2024 12:42 PM EDT Narrative [facility] - 05/10/2024 1:15 PM [...] ORDERABLES Final R esult Performing Organization Address [facility] de Phone Number [facility] [address] [place] [address] * (ABNORMAL) NT PROBNP (05/10/2024 12:37 PM EDT) [facility] NT Pro-BNP 287(H) <=229 pg/mL 05/10/2024 1:10 PM EDT [facility] Blood VENOUS BLOOD / Unknown Venipuncture / Unknown 05/10/2024 12:37 PM EDT 05/10/2024 12:41 PM EDT Narrative [facility] - 05/10/2024 1:10 PM EDT An NT pro-BNP level less than 300 pg/mL in any patient, regardless of age, effectively rules out acute CHF with a 99% negative predictive value. Ingestion of arelis doses of biotin (>5 mg/day) taken within 8 hours of drawing blood sample can interfere with this immunoassay test. Gavin Batista MD CHEMISTRY ORDERABLES Final R [facility] Performing Organization Address City/[facility]/ZIP Co de Phone Number [facility] [address] [place] [address] * LIPASE LEVEL (05/10/2024 12:37 PM EDT) [facility] Lipase Lvl 37 13 - 60 U/L 05/10/2024 1:10 PM EDT [facility] Blood VENOUS BLOOD / Unknown Venipuncture / Unknown 05/10/2024 12:37 PM EDT 05/10/2024 12:41 PM EDT Gavin Batista MD CHEMISTRY ORDERABLES Final R esult [facility] [address] [place] [address] * ALCOHOL MEDICAL (05/10/2024 12:37 PM EDT) [facility] Alcohol Medical <10 <=10 mg/dL 1:30 PM EDT [facility] Comment: 50-100 mg/dL - Flushing, slowing of reflexes, impaired visual acuity > 100 mg/dL - Depression of STONE [place]AYER > 400 mg/dL - Fatalities reported Blood VENOUS BLOOD / Unknown Venipuncture / Unknown 05/10/2024 12:37 PM EDT 05/10/2024 12:41 PM EDT Gavin Batista MD CHEMISTRY ORDERABLES Final R esult Performing Organization Address City/[facility] Center de Phone Number [facility] [address] [place] [address] * HEPATIC FUNCTION PANEL (05/10/2024 12:37 PM EDT) Pathologist [facility] Total Protein 7.4 6.4 - 8.3 gm/dL 05/10/2024 1:10 PM EDT [facility] Albumin 4.6 3.2 - 4.6 gm/dL 05/10/2024 1:10 PM EDT [facility] Bili Direct <0.2 0.0 - 0.3 mg/dL 05/10/2024 1:10 PM EDT [facility] Bili Total 0.4 0.2 - 1.4 mg/dL 05/10/2024 1:10 PM EDT [facility] AST 28 <=40 U/L 05/10/2024 1:10 PM EDT [facility] ALT 39 <=41 U/L 05/10/2024 1:10 PM EDT [facility] Alk Phos 90 40 - 129 U/L 05/10/2024 1:10 PM EDT [facility] Blood VENOUS BLOOD / Unknown Venipuncture / Unknown 05/10/2024 12:37 PM EDT 05/10/2024 12:41 PM EDT Gavin Batista MD CHEMISTRY ORDERABLES Final R esult Performing Organization Address City[facility] Co de Phone Number [facility] [address] [place] [address] * EK EKG 12 LEAD (05/10/2024 12:28 PM EDT) Anatomical Region Laterality Modality Electrocardiogra phy 05/10/2024 12:3 3 PM EDT Impressions 05/10/2024 4:[address] [facility] Test Date: 2024-05-10 Pat Name: [facility] Department: [facility] Room: [facility] Gender: Male Geoscientist: : 1960 Requested By: [facility] Order Number: [id number] Reading MD: Tano Marie Measurements Intervals [place] Rate: 98 P: 220 MN: 322 QRS: -90 QRSD: 142 T: 51 QT: 390 QTc: 498 Interpretive Statements ELECTRONIC ATRIAL PACEMAKER ELECTRONIC VENTRICULAR PACEMAKER ABNORMAL RHYTHM ECG WARNING: DATA QUALITY MAY AFFECT INTERPRETATION WHEN COMPARED TO PREVIOUS ECG:NO SIGNIFICANT CHANGES ARE NOTED Electronically Signed On 05-10-2024 16:56:57 EDT by Tano Marie Narrative Procedure Note Tano Marie MD - 05/10/[address] Test Date: 2024-05-10 Pat Name: [facility] Department: DEPID Room: [facility] Gender: Male Geoscientist: : 1960 Requested By: [facility] Order Number: [id number] Reading MD: Tano Marie Measurements Intervals [place] Rate: 98 P: 220 MN: 322 QRS: -90 QRSD: 142 T: 51 [...] - 5.6 % 04/10/2024 10:14 PM EST [facility] Est. Avg Glucose 160 mg/dL 04/10/2024 10:14 PM EST [facility] Blood VENOUS BLOOD / Unknown Venipuncture / Unknown 04/10/2024 1:37 PM EST 04/10/2024 1:37 PM EST Narrative [facility] - 04/10/2024 10:14 PM EST REFERENCE RANGE: Normal: 4.0-5.6% Pre-diabetes: 5.7-6.4% Provisional diagnosis of diabetes: >6.4% Hgb F>10% and anything which shortens red cell survival, such as hemolytic anemia, or unstable hemoglobin variants such as HbSS, HbSC, or HbCC, will lower the HbA1c value associated with a given level of glycemic control. us Mila Lange MD CHEMISTRY ORDERABLES Final Res ult [facility] [address] [facility], [place] [address] [facility] [address] [place] [address] * (ABNORMAL) LIPID SCREEN (04/10/2024 1:37 PM EST) Cholesterol 165 <200 mg/dL 04/10/2024 9:07 PM EST [facility] Comment: < 200 Desirable 200 - 239 Borderline High >= 240 High Triglyceride 165(H) <150 mg/dL 04/10/2024 9:07 PM EST [facility] Comment: < 150 Normal 150 - 199 Borderline High 200 - 499 High >= 500 Very High HDL 41 >=40 mg/dL 04/10/2024 9:07 PM EST [facility] Comment: > 60 Optimal 40 - 60 Acceptable < 40 Low LDL Calculated 95 <100 mg/dL 04/10/2024 9:07 PM EST [facility] Comment: < 100 Optimal 100 - 129 Near or above optimal 130 - 159 Borderline High 160 - 189 High >= 190 Very High The National Institutes of Health (NIH) equation is used for all lipid panels that report calculated LDL (LDL-C). Non-HDL-C Calculated 124 <=129 mg/dL 04/10/2024 9:07 PM EST [facility] Comment: <130 Desirable 130-159 Above Desirable 160-189 Borderline High 190-219 High >= 220 Very High Fasting Specimen? Yes None 025 9:07 PM EST [facility] Blood VENOUS BLOOD / Unknown Venipuncture / Unknown 04/10/2024 1:37 PM EST 04/10/2024 1:37 PM EST Mila Lange MD CHEMISTRY ORDERABLES Final Res ult Performing Organization Address [facility] de Phone Number [facility], [address] , [place] [address] [facility] [address] [place] [address] * MICROALBUMIN/CREATININE RATIO URINE (01/19/2024 3:09 PM EST) Pathologist [facility] Urine Microalb <12.0 mg/L 01/19/2024 8:46 PM EST [facility], [facility] Urine Creatinine 45.1 mg/dL 01/19/20 24 8:46 PM EST [facility], [facility] Ur Microalb/Creat 024 8:46 PM EST [facility], [facility] Comment: Because the albumin level is below the level of detection in this urine specimen, the laboratory is unable to calculate a reliable albumin/creatinine ratio. Microalbuminuria is unlikely if the urine albumin concentration is less than 20- 30 mg/L in a random specimen. Urine URINE SPECIMEN COLLECTION / Unknown 01/19/2024 3:09 PM EST 01/19/2024 3:09 PM EST Mlia Lange MD URINE ORDERABLES Final Result Performing Organization Address [facility] de Phone Number [facility] [address] , [place] [address] * ACUTE HEPATITIS PANEL (04/10/2019 9:08 AM EST) Pathologist [facility] Hep Bs Ag Non-Reacti ve Non-Reacti ve 04/10/2019 3:08 PM EST [facility], [facility] Hep B Core IgM Non-Reacti ve Non-Reacti ve 04/10/2019 3:08 PM EST [facility], [facility] Hep A IgM Non-Reacti ve Non-Reacti ve 04/10/2019 3:08 PM EST [facility] Hep C Ab Non-Reacti ve Non-Reacti ve 04/10/2019 3:08 PM EST [facility] Blood VENOUS BLOOD / Unknown Venipuncture / Unknown 04/10/2019 9:08 AM EST 04/10/2019 9:08 AM EST us Mila Lange MD CHEMISTRY ORDERABLES Final Res ult [facility] [address] [facility] , [address] [place] [id number] * DIABETES EYE EXAM (09/18/2018) us Historical Provider HEALTH MAINTENANCE Final Res ult SEP OFFICE from Last 3 Months or Most Recently Relevant to Health Maintenance Insurance FRANNIE [place]ARRINGTON MR ANTHECHO MEDIBLUE MR Advance Directives For more information, please contact: [phone] * Full Code (Latest Code Status on [...] 5:12 AM 02/16/2024 11:29 PM Care Teams 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
--- NOTE | 2024-08-09 07:00 | NM_ITS ---
APPROVED REPORT Exam: Nuclear Stress Test Indication: cp..soa..syncope..fatigue Patient Location: Outpatient Stress Tech: Alina MITCHELL Tech:DEB Hewitt RT(R)(N) Ht: 6 ft 0 in Wt: 215 lbs HR: 73 bpm BP: 110/71 mmHg BSA: 2.20 m2 TID: 1.06 History: cp..soa..syncope..fatigue Procedure: Patient received 0.4 mg of intravenous Lexiscan, resting heart rate 73 bpm, resting blood pressure 110/71 mmHg, with Lexiscan maximum heart rate achieved was 78 bpm which is 85 % of the maximum predicted heart rate and blood pressure was 90/60 mmHg. With Lexiscan, patient denied any complaint of chest pain. Cardiac Stress and Resting SPECT Images: Cardiac Stress and Resting SPECT images were obtained using technetium 99m Myoview 32.6 mCi stress and 10.88 mCi at rest. Resting and stress imaging in supine and prone positions demonstrate a medium sized, mild, predominantly fixed perfusion defect in the inferior LV wall. There is a small region of reversibility towards the distal inferior LV wall. Gated imaging demonstrates mild reduction in global LV systolic function. There is moderate hypokinesis of the basal inferior LV wall. LVEF is calculated at 49%. Conclusion: Medium sized, mild, predominantly fixed perfusion defect in the inferior LV wall. There is a small region of reversibility towards the distal inferior LV wall. Gated imaging demonstrates mild reduction in global LV systolic function. There is moderate hypokinesis of the basal inferior LV wall. LVEF is calculated at 49%. Electronically signed by : Kymberly Conklin MD 08/09/2024 12:35:05
--- OUTSIDE RECORDS SUMMARY | 2024-08-09 07:51 | XMS_ITS | CCD ---
Author Organization Unknown Care Team Providers Care Help Desk Technician Name Role Phone Unavailable Primary Care Provider Unavailabl e Unavailable Chronic Care Management Unavaila ble Summary Purpose DataExchange Insurance Providers Payer name Policy type / Coverage type Covered constitution party ID Effective Begin Date Effective End Date [facility] [id number] Unknown Unknown Family History Family History data not found Medication Administered No Medication Administered data Reason For Visit No Reason For Visit data Medical Equipment No Medical Equipment data Advance Directives No Advance Directive data
--- OUTSIDE RECORDS SUMMARY | 2024-08-09 07:51 | XMS_ITS | CCD ---
Author Organization Unknown Care Team Providers Care Tectonophysicist Name Role Phone Unavailable Primary Care Provider Unavailabl e Unavailable Chronic Care Management Unavaila ble Summary Purpose DataExchange Insurance Providers Payer name Policy type / Coverage type Covered republican ID Effective Begin Date Effective End Date [facility] [id number] Unknown Unknown Family History Family History data not found Medication Administered No Medication Administered data Reason For Visit No Reason For Visit data Medical Equipment No Medical Equipment data Advance Directives No Advance Directive data
[2024-08-09] MEDS: ISOTOPE MYOVIEW (PER STUDY) 1 DOSE IV (09:23)
[2024-08-09] MEDS: SODIUM CHLORIDE 0.9% 10ML SYR (RAD ONLY) 10 ML IV ×2 (09:23)
--- NOTE | 2024-08-09 09:30 | CA_ITS ---
APPROVED REPORT EXAM: Comprehensive 2D, Doppler, and color-flow Echocardiogram Railcar Mechanic: Sandy Brar RT(R) Ht: 6 ft 0 in Wt: 214lbs BSA: 2.19 BP: 132/84 mmHg Indications: fatigue, dyspnea on exertion 2D Dimensions LVEF (West's) 64.60 % M: 52 - 72 LV Volume 67.60 mL M: 62 - 150 LV Volume Index 30.9 mL/m2 M: 34 - 74 EF AP4 71.40 % EF AP2 57.3 % EF BP 64.6 % GL Strain -17.5 % M-Mode Dimensions RVDd 2.90 cm (0.9-2.6) LA Diam 4.16 cm (1.9-4.0) LVDd 5.11 cm (3.5-5.7) LVDs 3.26 cm (3.5-5.7) IVSd 1.13 cm (0.6-1.1) PWd 0.97 cm (0.6-1.1) EF (Teich) 65.60% FS 36.20% EDV (Teich) 124.40 mL ESV (Teich) 42.80 mL LV Diastology E Decel Time 243 (160-240 msec) E/A Ratio 0.9 Mitral Valve MV E Max Asa. 66.0 (40-130 cm/s) MV A Velocity 75.0 (40-130 cm/s) E/A Ratio 0.89 MV PHT 71.0 ms Left Ventricle The left ventricle is normal size. The left ventricular systolic function is normal. The left ventricular ejection fraction is within the normal range. There is increased LV wall thickness. There is normal LV segmental wall motion. The left ventricular diastolic function is normal. LVEF is 55-60%. Right Ventricle The right ventricle is normal size. The right ventricular systolic function is normal. Atria The left atrium size is normal. The right atrium size is normal. There is no Doppler evidence of interatrial shunt. Aortic Valve The aortic valve is mildly thickened. There is no aortic valvular stenosis. At least mild aortic regurgitation is present. Mitral Valve The mitral valve is normal in structure. No evidence of mitral valve stenosis. Trace mitral regurgitation. Tricuspid Valve Tricuspid valve is grossly normal in structure and function. Trace tricuspid regurgitation. There is insufficient TR jet to estimate RVSP. Pulmonic Valve The pulmonary valve is normal in structure. Trace pulmonic regurgitation. Great Vessels The aortic root is mildly dilated, measuring 4.4 cm in diameter. The ascending aorta is mildly dilated, measuring 4.0 cm in diameter. IVC is normal in size and collapses >50% with inspiration. Pericardium There is no pericardial effusion. Other Information Study Quality: Technically Difficult Conclusion Technically difficult study due to poor acoustic windows. Normal biventricular systolic function. Mild AI (may be underestimated due to technically difficult study) Mildly dilated aortic root (4.4 cm in diameter) and ascending aorta (4.1 cm in diameter) Electronically signed by : Kymberly Conklin MD 08/13/2024 23:51:39
== END 2024-08-09 23:59 | disposition home or self-care (01) ==
PROVIDERS: PCP Family Medicine; Visit Provider Internal Medicine
DX: I35.1 Nonrheumatic aortic (valve) insufficiency (principal); I77.810 Thoracic aortic ectasia; R94.39 Abnormal result of other cardiovascular function study; R94.31 Abnormal electrocardiogram [ECG] [EKG]; I45.2 Bifascicular block; I10 Essential (primary) hypertension; I25.10 Atherosclerotic heart disease of native coronary artery without angina pectoris; R55 Syncope and collapse
CPT/HCPCS: 78452; 93016; 93017; 93018; 93306; A9502; J2785

== ENCOUNTER 2024-08-28 08:02 | Day surgery (SDC) | payer MEDICARE, SELFPAY ==
[2024-08-28] VITALS (12 sets, daily range): BP systolic 85–130; BP diastolic 51–82; PULSE 48–70; RESP 18–20; O2SAT 90–97; BMI 29.0
--- NOTE | 2024-08-28 07:07 | IR_ITS ---
APPROVED REPORT Patient Location: Outpatient PROCEDURES Left heart catheterization Left ventriculogram Selective coronary angiogram Drug-eluting stent deployment to the mid and distal LAD Intravascular ultrasound to the mid and distal LAD Drug-eluting stent deployment to the proximal and mid ramus intermedius INDICATION Coronary artery disease, Worsening angina pectoris, Complex intervention using IVUS for guidance Informed consent was obtained prior to the procedure. COMPLICATIONS NONE Estimated Blood Loss: LESS THAN 10 ML TECHNIQUE One percent lidocaine used to anesthetize the right anterior aspect of the wrist. The right radial artery was accessed via the Seldinger technique. A 6 Malian sheath was placed in the right radial artery. 2.5 mg of Verapamil, 800 mcg of nitroglycerin, 1mg Lidocaine and 5000 U Heparin were given through the arterial sheath. The JL3 catheter was also used to perform left heart catheterization, left ventriculogram and selective coronary angiogram. At the end the diagnostic angiogram therapeutic Was administered given a therapeutic ACT and the guide catheter was placed in left main artery followed by Choice PT extra-support wire placed distally in the LAD. A 2.25 x 38 mm Clarkia frontier stent was initially deployed at 15 edna reducing the stenosis. Intravascular ultrasound probe was advanced which demonstrated significant undersizing of the stent. A 2.5 x 27 mm noncompliant balloon was advanced in the proximal and midportion and deployed at 24 edna to post dilate. 800 mcg of intracoronary nitroglycerin was administered and VANESSA-3 flow was produced before and after the procedure. Following this the wire was pulled back to the ramus intermedius where a 2.5 x 34 mm Clarkia frontier stent was deployed in the proximal to mid ramus intermedius at 16 edna. A 2.5 x 12 mm noncompliant balloon was then advanced and deployed at 24 and then 25 edna in the distal mid and proximal portion of the stent. VANESSA-3 flow was present before and after the procedure. Repeat angiography demonstrated there was slow flow down the LAD. At this point repeat angiography demonstrated significant stenosis distal to the 2.25 mm stent. A 2 mm x 15 mm Clarkia frontier stent was deployed distally at 16 edna reducing the stenosis. The balloon was brought back and deployed at 24 edna to match the stents and to further post dilate the 2.25 mm distal aspect of the stent. 800 mcg of intracoronary nitroglycerin was administered with VANESSA-3 flow being present at the end of the procedure. There remained persistent moderate and severe disease in the distal apex unreachable by interventional stenting. Sheath was removed good hemostasis was achieved using TR banding patient was transferred to the postop putting in stable condition ANGIOGRAPHIC RESULTS The left main artery Normal The left anterior descending artery Has stents in the proximal to mid segment which have mild to moderate concentric in-stent restenosis with excellent distal transitioning. The distal LAD has diffuse 70 and 80% concentric stenosis. As the LAD wraps the apex there is an eccentric 80% stenosis followed by a very distal 50% stenosis The circumflex artery A large ramus intermedius has proximal calcified 70 to 80% stenosis. The circumflex artery itself is vestigial and severely diseased and small caliber The right coronary artery Is a large dominant vessel with a stent in the ostial segment which has moderate concentric in-stent restenosis approximately 40%. Distally there are 30 and 40% concentric stenoses. The [place] ventriculogram reveals Preserved at 55% The left ventricular end-diastolic pressure 20 mmHg IMPRESSION Coronary disease as described above Successful stenting of the mid and distal LAD severe disease reduced to 0% with 2 contiguous drug-eluting stents Persistent severe apical LAD disease which is unreachable either bypass surgery or percutaneous revascularization Successful stenting of severely diseased proximal to mid ramus intermedius severe disease reduced to 0% with 1 drug-eluting stent Moderate in-stent restenosis in the ostial proximal dominant right coronary Preserved ejection fraction Mildly elevated LVEDP PLAN 1. Effient and aspirin 2. Start patient on a nitroglycerin drip with 10 mcg/min overnight with plans to convert to long-acting nitrates tomorrow morning prior to discharge 3. Continue medical management for the remaining coronary artery disease especially apical disease 4. Avoidance of tobacco product 5. Tight control of diabetes 6. Risk factor modification 7. LDL less than 55 to be achieved with high intensity statin Electronically signed by : Efrem Ewing MD 08/28/2024 11:25:12
[2024-08-28 08:37] LABS: Hematocrit 47.5 % (42.0-52.0); Hemoglobin 15.8 g/dL (14.1-18.0); Immature Granulocytes % 0.2 %; Mean Corpuscular HGB Conc 33.3 g/dL (31.8-35.4); Mean Corpuscular Hemoglobin 30.3 pg (27.0-31.2); Mean Corpuscular Volume 91.0 fl (80-94); Nucleated Red Blood Cells % 0 %; Platelet Count 239 K/mm3 (142-424); Red Blood Count 5.22 M/mm3 (4.60-6.20); Red Cell Distribution Width-SD 41.0 fL; White Blood Count 13.1 K/mm3 (4.8-10.8)
[2024-08-28 08:40] LABS: Anion Gap 10.3 mEq/L (5-15); Blood Urea Nitrogen 12 mg/dl (9-20); Calcium 9.8 mg/dl (8.4-10.2); Carbon Dioxide 31 mmol/L (22.0-30.0); Chloride 102 mmol/L (98-107); Creatinine Clearance Estimated 100 mL/min (50-200); Creatinine,Serum 0.90 mg/dl (0.66-1.25); Estimated Glomerular Filt Rate 84 ml/min (>60); GFR (African American) 102 ML/MIN (>60); Glucose 187 mg/dl (74-100); Potassium 4.3 mmoL/L (3.5-5.1); Sodium 139 mmol/L (136-145)
[2024-08-28] MEDS: 0.9 % SODIUM CHLORIDE 500 ML 25 ML IV (09:53)
[2024-08-28] MEDS: VERAPAMIL 2.5MG/ML 2ML VIAL 2.5 MG IV (09:53)
[2024-08-28] MEDS: LIDOCAINE 1% 10ML MDV 10 ML IJ (09:53)
[2024-08-28] MEDS: HEPARIN 1,000 UNITS/500ML NS (CATH LAB) 3000 UNIT IV (09:53)
[2024-08-28] MEDS: NITROGLYCERIN 800MCG/8ML SYR (CATH LAB) 800 MCG IA ×2 (09:53→10:45)
[2024-08-28] MEDS: HEPARIN 1,000 UNITS/ML 10ML VIAL (CATH LAB) 5000 UNIT IV ×2 (09:53→11:14)
[2024-08-28] MEDS: IOPAMIDOL-370 (76%);100ML BOTTLE 50 ML IV (10:02)
[2024-08-28 10:59] LABS: RBC Morphology Normal; Total Cells Counted 100
[2024-08-28] MEDS: FENTANYL 100MCG/2ML VIAL 50 MCG IV (11:14)
[2024-08-28] MEDS: MIDAZOLAM HCL 1MG/ML 5ML VIAL 1 MG IV (11:14)
[2024-08-28] MEDS: NITROGLYCERIN IN 5 % DEXTROSE 250 ML 3 MG IV (11:22)
[2024-08-28] MEDS: ASPIRIN 325MG TABLET 325 MG PO (11:54)
[2024-08-28] MEDS: PRASUGREL 10MG TAB 60 MG PO (11:55)
[2024-08-28] MEDS: IOPAMIDOL-370 (76%);100ML BOTTLE 200 ML IV (12:41)
[2024-08-28 12:43] LABS: CATHL Activated Clotting Time > 400 SEC (74-125)
[2024-08-28] MEDS: ISOSORBIDE MONO 30MG TAB.ER.24H 30 MG PO (13:22)
--- NOTE | 2024-08-28 13:38 | SUR.PHASEII ---
per MD, pt can be d/c at 1400.
== END 2024-08-28 14:05 | disposition home or self-care (01) ==
PROVIDERS: PCP Family Medicine; Visit Provider Internal Medicine
PROC: 4A023N7 Measurement of Cardiac Sampling and Pressure, Left Heart, Percutaneous Approach (ICD-10-PCS; CPT 93452; principal; 2024-08-28 09:00)
DX: T82.855A Stenosis of coronary artery stent, initial encounter (principal); I25.118 Atherosclerotic heart disease of native coronary artery with other forms of angina pectoris; R53.83 Other fatigue; R94.39 Abnormal result of other cardiovascular function study; I45.2 Bifascicular block; I10 Essential (primary) hypertension; R94.31 Abnormal electrocardiogram [ECG] [EKG]; E11.9 Type 2 diabetes mellitus without complications; E78.2 Mixed hyperlipidemia; I25.2 Old myocardial infarction; Z95.5 Presence of coronary angioplasty implant and graft; Z87.891 Personal history of nicotine dependence; Z88.8 Allergy status to other drugs, medicaments and biological substances; Z79.82 Long term (current) use of aspirin; Z79.85 Long-term (current) use of injectable non-insulin antidiabetic drugs; Z79.899 Other long term (current) drug therapy; Y84.8 Other medical procedures as the cause of abnormal reaction of the patient, or of later complication, without mention of misadventure at the time of the procedure
CPT/HCPCS: 80048; 85007; 85025; 85347; 92928; 92978; 93458; 99152; 99153; C1725; C1769; C1874; C9600; J1200; J1450; J1644; J3010; J7040; Q9967

== ENCOUNTER 2024-08-28 14:37 | Inpatient (IN) | payer MEDICARE, SELFPAY ==
[2024-08-28] VITALS (58 sets, daily range): BP systolic 70–142; BP diastolic 42–94; PULSE 48–94; RESP 10–24; TEMP 36.6–36.9; O2SAT 91–98; BMI 28.5
--- NOTE | 2024-08-28 14:39 | ECG_ITS ---
APPROVED REPORT Exam: Resting ECG HR:53 bpm ECG Measurements Heart Rate 53 AXES CO 179 P 81 QRSd 140 QRS -59 QT 487 T -52 QTc 469 Conclusion SINUS BRADYCARDIA WITH OCCASIONAL SUPRAVENTRICULAR PREMATURE COMPLEXES RIGHT BUNDLE BRANCH BLOCK [120+ ms QRS DURATION, UPRIGHT V1, 40+ ms S IN I/aVL/V4/V5/V6] LEFT ANTERIOR FASCICULAR BLOCK [QRS AXIS <= -45, QR IN I, RS IN II] LEFT VENTRICULAR HYPERTROPHY AND ST-T CHANGE [VOLTAGE CRITERIA PLUS ST/T ABNORMALITY] POSSIBLE SEPTAL MYOCARDIAL INFARCTION , OF INDETERMINATE AGE [30 ms Q WAVE IN V1/V2] ABNORMAL ECG UNCONFIRMED REPORT Sinus bradycardia with ventricular rate of 53 bpm. T wave inversions in lead II, III, aVF, V5 and V6. Mild ST elevations in aVL and V2. Mild ST depression in lead II and aVF. Does not meet STEMI criteria. Electronically signed by : GILMA LARSEN, 08/28/2024 17:01:46
--- OUTSIDE RECORDS SUMMARY | 2024-08-28 14:46 | XMS_ITS | Clinical Summary ---
Author Organization [facility] Address [address] [place] [address] Phone Care Team Providers Care Ldr Rn Name Role Phone Cornelia De Leon MD Conditions or Problems Problem Name Problem Code Onset Date Status Entry Date Provider Comment Standard Description Annotate *AFTERCARE FOLLOW SURGERY, NERVOUS SYSTEM NEC Z48.811 (ICD-10-CM) Active Cornelia De Leon MD Encounter for surgical aftercare following surgery on the nervous system RADICULOPATHY , LUMBAR REGION M54.16 (ICD-10-CM) Active Aakash Morfin Radiculopathy , lumbar region UNSPECIFIED PRE-OPERATIVE EXAMINATION 133518819 (SNOMED CT) Active Ritika Gonzalez History and physical examination for surgical clearance LUMBOSACRAL RADICULITIS 18167313 (SNOMED CT) Active Cornelia De Leon MD Lumbosacral radiculitis OVERWEIGHT 160500737 (SNOMED CT) Active Cornelia De Leon MD Overweight Medications Medication Instructions Start Date Stop Date Generic Name [facility] Provider HIBICLENS 4 % EXTERNAL LIQUID Wash the entire back and hip/buttock areas the night prior to the surgey CHLORHEXIDINE GLUCONATE 55098204893 Cornelia De Leon MD HIBICLEJUANITA 4 % EXTERNAL LIQUID Wash the entire back and hip/buttock areas the night prior to the surgey CHLORHEXIDINE GLUCONATE 41649704777 Cornelia De Leon MD ACCU-CHEK FASTCLIX LANCETS Non-[place] LANCETS [id number] Cornelia De Leon MD LISINOPRIL 20 MG TABS 1 daily Non- LISINOPRIL 91422099478 Cornelia De Leon MD SILDENAFIL CITRATE 20 MG TABS 1 tid Non- SILDENAFIL CITRATE 15022503313 Cornelia De Leon MD TAMSULOSIN HCL 0.4 MG CAPS 1 qhs Non- TAMSULOSIN HCL 51832943159 Cornelia De Leon MD BREO ELLIPTA 100-25 MCG/ACT AEPB 1 daily Non- FLUTICASONE FUROATE-VILANTER OL 05694817017 Cornelia De Leon MD DILTIAZEM HCL ER COATED BEADS 120 MG [id number] 1 daily Non- DILTIAZEM HCL COATED BEADS 95035536562 Cornelia De Leon MD METOPROLOL SUCCINATE ER 100 MG [id number] 1 daily Non- METOPROLOL SUCCINATE 93890574350 Cornelia De Leon MD ATORVASTATIN CALCIUM 40 MG TABS 1 qhs Non- ATORVASTATIN CALCIUM 26192711240 Cornelia De Leon MD STRESS PLUS ZINC TABS 1 daily Non- B LBUDIKE-O-D-ZN 49730337337 Cornelia De Leon MD FENOFIBRATE MICRONIZED 134 MG CAPS 1 daily Non- FENOFIBRATE MICRONIZED 58670175246 Cornelia De Leon MD TIZANIDINE HCL 4 MG TABS 1 qhs - TIZANIDINE HCL 82107691551 Cornelia De Leon MD NORTRIPTYLINE HCL 25 MG CAPS 1 qhs Non- NORTRIPTYLINE HCL 90889489376 Cornelia De Leon MD CO Q 10 CAPS 1 daily Non- COENZYME Q10 CAPS 59313502141 Cornelia De Leon MD OXYCODONE-ACETAM INOPHEN 5-325 MG TABS 1 po q 6 hours Non- OXYCODONE-ACETAM INOPHEN 99597213590 Cornelia De Leon MD OMEPRAZOLE 40 MG CPDR 1 daily Non- OMEPRAZOLE 43523853219 Cornelia De Leon MD METFORMIN HCL ER 500 MG [id number] 1 daily Non- METFORMIN HCL 62025238161 Cornelia De Leon MD ASPIRIN ADULT LOW DOSE 81 MG TBEC 1 daily Non-Tellez ASPIRIN 78696926901 Cornelia De Leon MD FUROSEMIDE 40 MG TABS 1 daily Non-Tellez FUROSEMIDE 09736751137 Cornelia De Leon MD POTASSIUM CHLORIDE ZULEMA ER 20 MEQ CR-TABS 1 daily Non-Tellez POTASSIUM CHLORIDE ZULEMA CR 15170490785 Cornelia De Leon MD BACLOFEN TABS 1 tid Non-Tellez BACLOFEN TABS 14415227052 Cornelia De Leon MD Medications Administered No [...] Procedures Code Procedure Name Date Entry Date 02071 MRI Thoracic Spine 1 Vital Signs Date [...]
--- OUTSIDE RECORDS SUMMARY | 2024-08-28 14:46 | XMS_ITS | Encounter Summary ---
Author Organization [facility] [address] Care Team Providers Care Seismic Prospecting Observer Name Role Phone Mila Lange MD Primary Care Provider [phone] Reason for Visit * Reason Onset Date Comments Medication Management 07/05/2024 Health And Wellness Coordinator Oil Refinery Process Technician: [facility] [phone] Encounter Details Date Type Department Care Team (Late st Contact Info) Description 07/05/2024 Patient Outreach [facility] [address] [place] [address] Missy Wright CPhT Medication Management (Health And Wellness Coordinator Oil Refinery Process Technician: [facility] [phone]/) Social History Tobacco Use Types Packs/Day Years Used Date Smoking Tobacco: Every Day Cigarettes 1.5 55.6 Started: 02/07/1969 Smokeless Tobacco: Never Comments:Pt reports he is cu rrently smoking 0.5ppd-02/13/19-KR Pt states he is only smoking 3-4 cigarettes a day now - 01/19/24 KN Alcohol Use Standard Drinks/Week Comments Yes 4 (1 standard drink = 0.6 oz pure alcohol) pt reports drinking 4 shots of whiskey tonight [facility] Utilities Answer Date Recorded In the [...] 05/11/2024 [facility] - Occupational Stress Questionnaire Answer Date [...] needed for daily living? No 01/12/2023 [facility] IP Transportation Answer D ate [...] Tashi Martin Jr. was contacted by Clinical Oil Refinery Process Technician for OUTCOMES COMPREHENSIVE MEDICATION REVIEW (CMR). Clinical Jingle Writer outreaching to patient to attempt to schedule schedule pharmacist Outcomes appointment, patient also TIPS eligible. Adherence on Needs check-in (antidepressant- SNRI) and Needs drug therapy for ACEI/ARB (CAD) This is the FIRST attempt to reach patient. school age teacher unable to reach patient. school age teacher left voice mail with call back number of [phone]. Next outreach by Clinical school age teacher on or around 08/05/24 if applicable. [employer] not set up; unable to send [employer] message Missy Wright CPhT documented in this [...] documented as of this encounter Care Teams Seismic Prospecting Observer Relationship Specialty Start Date End Date Mila Lange MD [address] [place] [address] PCP - General Family Medicine 06/22/11 documented as of this encounter
--- OUTSIDE RECORDS SUMMARY | 2024-08-28 14:47 | XMS_ITS | Clinical Summary ---
Author Organization [facility] Address [address] [place] [address] Phone Care Team Providers Care Paper Pattern Folder Name Role Phone Mila Lange MD Primary Care Provider [phone] Allergies Active Allergy Reactions Criticality Noted Date Comments Gabapentin Swelling 05/02/2022 Pkgwsdex-7-Lp1 Antimigraine Agents Other (See Comments) 01/19/2024 Contraindicated [...] 01/15/20 Active nalOXone (NARCAN) 4 mg/actuation Nasl [place], Non-Aerosol 0.1 mL by Nasal route as [...] (Inject under the skin) 46 Units nightly. [place] too please. May increase 2 units per day until fasting blood sugar is 80-110. Max potential is 100 units 18 mL 3 01/25/20 Active Additional Information Patient taking differently: 36 UnitsSubcutaneous NIGHTLY, [place] too please. May increase 2 units per [...] 2 03/23/19 25 Active DEXCOM G7 SENSOR [facility] DeviceIndicatio ns:Type 2 diabetes mellitus with hyperglycemia, without long-term current use of insulin ([facility]) 1 Each by [facility].(Non-Drug; Combo Route) route every 10 days. Follow [...] 04/25/19 25 Active ACCU-CHEK GUIDE TEST STRIPS [facility] StripIndication s:Type 2 diabetes mellitus without complication, without long-term current use of insulin ([facility]) TEST BLOOD SUGAR TWICE DAILY 100 Strip 04/26/19 25 Active ACCU-CHEK SOFTCLIX LANCETS [facility] USE TO TEST BLOOD SUGAR TWICE DAILY [...] migh t be different from the original. [facility] - Dr. 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 A1c 9.7 on 01/19/2024 [...] (07/29/2021): Added automatically from request for surgery [id number] Assessment & Plan (02/02/2024 12:58 PM EST): History of [place] Consider baby aspirin, consider statin PAF (paroxysmal [...] PM EST): On beta-demetri, not on anticoagulation 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 Assessment & Plan (01/21/2024 1:41 PM EST): [...] (02/02/2024 12:58 PM EST): Not on treatment MOTOR BOSS History of pneumothorax 09/04/2014 Overview (09/04/2014): 08/2014 [...] (02/02/2024 12:58 PM EST): Not on treatment MOTOR BOSS Tobacco use Assessment & Plan (02/02/2024 12:58 [...] SEP [facility] [address] [place] [address] iMssy Wright CPhT Medication Management (Provider Contracting Consultant [employer]: resource development director [phone]/) 06/08/2024 Patient Outreach SEP [facility] [address] [place] [address] Nery Mccartney, RN CM- Longitudinal Graduation 06/06/[address] [address] Irma Briceño, Milk Route Deliverer Other (Multiple No Shows) 05/31/2024 Patient Outreach [facility] [address] [place] [address] Nery Mccartney, RN CM- Telephonic Outreach; CM- Longitudinal Continued 05/29/2024 Refill SEP [facility] [address] [place] [address] Mila Lange MD Medication Refill from Last 3 Months Immunizations Immunization Administration [...] INTERVENTION(PCI) 07/31/2021 N/A CORONARY PERCUTANEOUS INTERVENTION (PCI) [[id number]]; Surgeon: Chaz Moya MD; Location: ED CARDIAC SCREENER PERFUM[facility]; Service: Cardiac Medical devices from this [...] (chronic obstructive pu lmonary disease) ([facility]) inhalers. O2 @ 2l/nc @ HS Blood circulation, collateral fe et/ankles swell, takes Lasix Heartburn Arthritis Neuromuscular disorder ([facility]) num bness and tingling left leg [...] 1.5 55.6 Started: 02/07/1971 Smokeless Tobacco: Never Tobacco Cessation:Ready to Q uit: Not Asked; Counseling Given: Not Answered Comments:Pt reports he is currently smoking 0.5ppd-02/13/19-KR Pt states he is only smoking 3-4 cigarettes a day now - 01/19/24 KN Alcohol Use Standard Drinks/Week Comments Yes 4 (1 standard drink = 0.6 oz pure alcohol) pt reports drinking 4 shots of whiskey [employer] [facility] [employer] Answer Date Recorded In the past 12 [...] Date Recorded PHQ-2 Total Score 0 05/11/2024 [facility] - [...] things needed for daily living? No 01/12/2023 [facility] HRSN [facility] IP [...] 2018 AAA Screening 08/10/2023 COVID-19 Vaccine ( - season) 2023 Wellness Exam Medicare 10/06/2024 10/06/2023 [...] General Not on track( 3:14 PM EST) Nery Waters RN Patient will limit daily intake of [...] 7.0 Result Component 7.2( 1:37 PM EST) Mila Schmitt MD Medical Devices Implanted Type Area Crocheter Hand Device Identifier Shelf Expiration Date Model / Serial / Lot Kit Lead Surgical Artisan 2 X 8 70cm - [id number] Implanted:Qty: 1 on 09/08/2016 by Cornelia De Leon MD at [facility] N/A: Spine Thoracic [employer]NEUR[employer]ION 05/08/2018 [id number] / [id number] / [id number] 3 Kitgenerator Pulse Implantable Mri Montage Precision - [id number] Implanted:Qty: 1 on 09/08/2016 by Cornelia De Leon MD at [facility] N/A: Back [employer]NE[employer] 08/04/2018 [id number] / [id number] / [id number] 3.5mm X 32mm Synergy Stent - [id number] Implanted:Qty: 1 on 07/31/2021 by Chaz Moya MD at [facility] N/A: LAD [employer]:CARDIAC RHYTHM MGMT [id number] 09/12/2021 [id number] / / [id number] 3.0mm X 20mm Synergy Stent - [id number] Implanted:Qty: 1 on 07/31/2021 by Chaz Moya MD at [facility] N/A: Ramus [employer]:CARDIAC RHYTHM MGMT [id number] 06/17/2022 [id number] / / [id number] Procedures Procedure Name Priority Date/Time Associated Diagnosis Comments SCANNED LABS 08/07/2024 5:31 AM EDT BASIC METABOLIC PANEL Early AM 05/13/2024 5:[address] ANGIOGRAM CHEST ABDOMEN W CONTRAST STAT 05/10/2024 12:59 PM EDT LIPID SCREEN Routine 04/10/2024 1:37 [...] artery Screening for AAA (abdominal aortic aneurysm) MICROALBUMIN/CREATI NINE RATIO URINE Routine 01/19/2024 3:09 PM EST Type 2 diabetes mellitus without complication, unspecified whether exterminator helper insulin use (HCC) ACUTE HEPATITIS PANEL Routine [...] HEMATOLOGY ORDERABLES Final Res ult * (ABNORMAL) BASIC METABOLIC PANEL (05/13/2024 5:28 AM EDT) Sodium 140 136 - 145 mmol/L 05/13/2024 6:43 AM EDT [facility] Potassium 3.7 3.5 - 5.0 mmol/L 05/13/2024 6:43 AM EDT [facility] Chloride 108(H) 98 - 107 mmol/L 05/13/2024 6:43 AM EDT [facility] Total CO2 23 22 - 29 mmol/L 05/13/2024 6:43 AM EDT [facility] Anion Gap 9 7 - 16 mmol/L 05/13/2024 6:43 AM EDT [facility] Calcium 8.6(L) 8.8 - 10.4 mg/dL 05/13/2024 6:43 AM EDT [facility] Glucose Lvl 94 70 - 99 mg/dL 05/13/2024 6:43 AM EDT [facility] BUN 8 8 - 23 mg/dL 05/13/2024 6:43 AM EDT [facility] Creatinine 0.68 0.67 - 1.30 mg/dL 05/13/2024 6:43 AM EDT [facility] eGFR (CKD-EPIcr 2020) 103 >=60 mL/min/1.7 3 m2 05/13/2024 6:43 AM EDT [facility] Comment:Estimated GFR was ca lculated using the CKD-EPIcr (2020) equation refit without race. The equation is recommended by the National Kidney Foundation - [place] [employer] of Nephrology Task Force. Blood VENOUS BLOOD / Unknown Venipuncture / Unknown 05/13/2024 5:28 AM EDT 05/13/2024 6:15 AM EDT Mami Ulloa MD CHEMISTRY ORDERABLES Final Resul t [facility] [address] [place], [place] [id number] * CT ANGIOGRAM CHEST ABDOMEN W CONTRAST [...] please contactthe office of the ordering clinician. us Gavin Batista MD IMG CT ORDERABLES Final Resu lt * (ABNORMAL) HEMOGLOBIN A1C (04/10/2024 1:37 PM EST) [facility] Hgb A1C 7.2(H) 4.2 - 5.6 % 04/10/2024 10:14 PM EST [facility] Est. Avg Glucose 160 mg/dL 04/10/2024 10:14 PM EST [facility] Blood VENOUS BLOOD / Unknown Venipuncture / Unknown 04/10/2024 1:37 PM EST 04/10/2024 1:37 PM EST Narrative [facility] - 04/10/2024 10:14 PM EST REFERENCE RANGE: Normal: 4.0-5.6% Pre-diabetes: 5.7-6.4% Provisional diagnosis of diabetes: >6.4% Hgb F>10% and anything which shortens red cell survival, such as hemolytic anemia, or unstable hemoglobin variants such as HbSS, HbSC, or HbCC, will lower the HbA1c value associated with a given level of glycemic control. Mila Lange MD CHEMISTRY ORDERABLES Final Res ult [facility] [address] [place] [address], [place] [address] [facility] [address] [place] [address] * (ABNORMAL) LIPID SCREEN (04/10/2024 1:37 PM EST) [facility] Cholesterol 165 <200 mg/dL 04/10/2024 9:07 PM EST [facility] Comment: < 200 Desirable 200 - 239 Borderline High >= 240 High Triglyceride 165(H) <150 mg/dL 04/10/2024 9:07 PM EST [facility] Comment: < 150 Normal 150 - 199 Borderline High 200 - 499 High >= 500 Very High HDL 41 >=40 mg/dL 04/10/2024 9:07 PM EST [facility] Comment: > 60 Optimal 40 - 60 Acceptable < 40 Low LDL Calculated 95 <100 mg/dL 04/10/2024 9:07 PM EST [facility] Comment: < 100 Optimal 100 - 129 Near or above optimal 130 - 159 Borderline High 160 - 189 High >= 190 Very High The National Institutes of Health (NIH) equation is used for all lipid panels that report calculated LDL (LDL-C). Non-HDL-C Calculated 124 <=129 mg/dL 04/10/2024 9:07 PM EST [facility] Comment: <130 Desirable 130-159 Above Desirable 160-189 Borderline High 190-219 High >= 220 Very High Fasting Specimen? Yes None 025 9:07 PM EST [facility] Blood VENOUS BLOOD / Unknown Venipuncture / Unknown 04/10/2024 1:37 PM EST 04/10/2024 1:37 PM EST us Mila Lange MD CHEMISTRY ORDERABLES Final Res ult [facility] [employer] [facility] [address] [facility] [address] [facility] , [address] [place] [id number] [facility] [address] [place] [address] * MICROALBUMIN/CREATININE RATIO URINE (01/19/2024 3:09 PM EST) [facility] Urine Microalb <12.0 mg/L 01/19/2024 8:46 PM EST [facility] [email or web address], [facility] Urine Creatinine 45.1 mg/dL 01/19/20 24 8:46 PM EST [facility] Ur Microalb/Creat 12/12/2 024 8:46 PM EST [facility] Comment: Because the albumin level is below the level of detection in this urine specimen, the laboratory is unable to calculate a reliable albumin/creatinine ratio. Microalbuminuria is unlikely if the urine albumin concentration is less than 20- 30 mg/L in a random specimen. Urine URINE SPECIMEN COLLECTION / Unknown 01/19/2024 3:09 PM EST 01/19/2024 3:09 PM EST Mila Lange MD URINE ORDERABLES Final Result Performing Organization Address City/[facility]/ZIP Co de Phone Number PREFERRED LAB [facility] [employer] [address] , [place] [address] * ACUTE HEPATITIS PANEL (04/10/2019 9:08 AM EST) Hep Bs Ag Non-Reacti ve Non-Reacti ve 04/10/2019 3:08 PM EST [facility] Hep B Core IgM Non-Reacti ve Non-Reacti ve 04/10/2019 3:08 PM EST [facility] Hep A IgM Non-Reacti ve Non-Reacti ve 04/10/2019 3:08 PM EST [facility] Hep C Ab Non-Reacti ve Non-Reacti ve 04/10/2019 3:08 PM EST [facility] [employer] Blood VENOUS BLOOD / Unknown Venipuncture / Unknown 04/10/2019 9:08 AM EST 04/10/2019 9:08 AM EST Mila Lange MD CHEMISTRY ORDERABLES Final Res ult Performing Organization Address [facility] Co de Phone Number PREFERRED LAB [facility] [facility] [employer] [address] [facility] [address] [facility] , [place] [address] * DIABETES EYE EXAM (09/18/2018) Historical Provider HEALTH MAINTENANCE Final Res ult SEP OFFICE from Last 3 Months or Most Recently Relevant to Health Maintenance Insurance FRANNIE HARRINGTON MR FRANNIE HARRINGTON MR FRANNIE HARRINGTON MR Advance Directives For more information, please contact: [phone] * Full Code (Latest Code Status on [...] 5:12 AM 02/16/2024 11:29 PM Care Teams Paper Pattern Folder Relationship Specialty Start Date End Date Mila Lange MD [address] [place] [address] PCP - General Family Medicine 06/22/11
[2024-08-28] MEDS: ATROPINE 1MG/10ML SYRINGE (CRASH CART) 1 MG IV (14:50)
--- NOTE | 2024-08-28 14:53 | XR_ITS ---
FINAL REPORT CLINICAL HISTORY: chest pain COMPARISON: 06/25/2024 FINDINGS: No acute pulmonary opacity is present. There is no evidence of effusion or pneumothorax. Mediastinum is unremarkable. There is mild cardiomegaly. IMPRESSION: No acute abnormality. Reviewed, Interpreted and Dictated by Olman Huntley MD Transcribed by Suni Pedro Authenticated and [facility]
--- NOTE | 2024-08-28 15:02 | PC.NURSE ---
1445 500mL NS infusing per Maryann POWELL order. Initiate by Ira Mansfield RN. 1449- zoll pads applied HR 48. Pt now having c/o increasing shortness of breath. 1450- order for 1 mg atropine to be given by Maryann POWELL order. Administered by Ira Mansfield RN. BP 83/61, HR 48, o2 98% NC 4L. Maryann POWELL speaking with Dr. Ewing on phone. 1453- BP 86/59, HR 54, o2 96%, RR 23 1455- BP 91/63, HR 62, RR 17. IV 20G LAC started by Shin Garcia RN
[2024-08-28 15:04] LABS: Hematocrit 44.0 % (42.0-52.0); Hemoglobin 15.3 g/dL (14.1-18.0); Immature Granulocytes % 0.3 %; Mean Corpuscular HGB Conc 34.8 g/dL (31.8-35.4); Mean Corpuscular Hemoglobin 31.2 pg (27.0-31.2); Mean Corpuscular Volume 89.8 fl (80-94); Nucleated Red Blood Cells % 0 %; Platelet Count 226 K/mm3 (142-424); Red Blood Count 4.90 M/mm3 (4.60-6.20); Red Cell Distribution Width-SD 41.5 fL; White Blood Count 11.8 K/mm3 (4.8-10.8)
[2024-08-28] MEDS: DOPAMINE HCL/D5W 250 ML 17.86 MG IV ×2 (15:08→18:45)
--- NOTE | 2024-08-28 15:10 | PC.NURSE ---
verified Dopamine with Pharmacist. initiated at 5
[2024-08-28 15:12] LABS: Activated Partial Thrombo Time 35.8 seconds (22.8-30.6); INR 1.01 (0.9-1.1); Prothrombin Time 11.2 seconds (10.1-12.5)
[2024-08-28] MEDS: 0.9 % SODIUM CHLORIDE 1000ML 1,000 ML 999 ML IV (15:12)
[2024-08-28] MEDS: ONDANSETRON 4MG/2ML VIAL 4 MG IV (15:17)
--- NOTE | 2024-08-28 15:18 | CA_ITS ---
APPROVED REPORT EXAM: Limited 2D Echocardiogram Carpet Mechanic: Sandy Brar RT(R) Ht: 6 ft 0 in Wt: 210lbs BSA: 2.18 BP: 89/53 mmHg Indications: cp, sob M-Mode Dimensions RVDd 2.92 cm (0.9-2.6) LVDd 5.42 cm (3.5-5.7) LVDs 3.90 cm (3.5-5.7) IVSd 1.23 cm (0.6-1.1) PWd 1.06 cm (0.6-1.1) EF (Teich) 53.80% FS 28.00% EDV (Teich) 142.50 mL ESV (Teich) 65.90 mL Other Information Study Quality: Fair Conclusion This is a limited TTE to evaluate for LV systolic function and presence of pericardial effusion. Limited windows were obtained. The left ventricle is normal in size. There is increased LV wall thickness. The LV systolic function is hyperdynamic. No regional wall motion abnormalities are noted. LVEF is 70%. No pericardial effusion is visualized in the available views. Valvular evaluation in the study cannot be made due to absence of spectral or color Doppler. Of note, the ascending aorta is moderately dilated, measuring up to 4.5 cm in diameter. Full TTE and further evaluation with CTA chest may be suggested, if deemed clinically appropriate. Electronically signed by : Kymberly Conklin MD 08/28/2024 15:51:18
--- NOTE | 2024-08-28 15:25 | ECG_ITS ---
APPROVED REPORT Exam: Resting ECG HR:77 bpm ECG Measurements Heart Rate 77 AXES QRSd 158 QRS -54 QT 463 T 7 QTc 494 Conclusion UNCERTAIN REGULAR RHYTHM RIGHT BUNDLE BRANCH BLOCK [120+ ms QRS DURATION, UPRIGHT V1, 40+ ms S IN I/aVL/V4/V5/V6] LEFT ANTERIOR FASCICULAR BLOCK [QRS AXIS <= -45, QR IN I, RS IN II] VOLTAGE CRITERIA FOR LVH [MEETS CRITERIA IN ONE OF: R(aVL), S(V1), R(V5), R(V5/V6)+S(V1)] No identifiable P waves but regular rhythm. Right bundle branch block. T wave inversions in lead III. No ST elevations or depressions. POSSIBLE SEPTAL MYOCARDIAL INFARCTION , PROBABLY OLD [30 ms Q WAVE IN V1/V2] ABNORMAL ECG UNCONFIRMED REPORT Electronically signed by : GILMA LARSEN, 08/28/2024 17:00:11
[2024-08-28 15:29] LABS: Albumin Level 4.4 g/dl (3.5-5.0); Chloride 103 mmol/L (98-107); Potassium 4.4 mmoL/L (3.5-5.1); Sodium 135 mmol/L (136-145)
[2024-08-28] MEDS: NITROGLYCERIN IN 5 % DEXTROSE 250 ML 3 MG IV (15:29)
[2024-08-28 15:31] LABS: Alanine Aminotransferase 38 U/L (12-78); Blood Urea Nitrogen 13 mg/dl (9-20); Creatinine Clearance Estimated 98 mL/min (50-200); Creatinine,Serum 0.70 mg/dl (0.66-1.25); Estimated Glomerular Filt Rate 113 ml/min (>60); GFR (African American) 137 ML/MIN (>60)
[2024-08-28 15:32] LABS: Albumin/Globulin Ratio 1.6 (1.1-1.8); Alkaline Phosphatase 66 U/L (38-126); Anion Gap 11.4 mEq/L (5-15); Aspartate Amino Transferase 54 U/L (17-59); Bilirubin,Total 0.9 mg/dl (0.2-1.3); Calcium 9.1 mg/dl (8.4-10.2); Carbon Dioxide 25 mmol/L (22.0-30.0); Globulin 2.8 g/dL (1.3-3.2); Glucose 177 mg/dl (74-100); Lipase 88 U/L (23-300); Magnesium 1.5 mg/dl (1.6-2.3); Total Protein,Serum 7.2 g/dl (6.3-8.2)
--- NOTE | 2024-08-28 15:37 | PC.NURSE ---
1510 Dopamine infusion initiated by Roland Roth RN at 10mcg. BP 70/48, HR 54, o2 97%. Per provider map goal is 65 1511 500mL NS initiated by Roland Roth RN per Kentrell POWELL order 1514 Dopamine infusion increased by Roland Roth RN to 15mcg. Pt now attempting to vomit. Verbal order given by kentrell POWELL to give 4mg zofran, administered by Leonardo Garcia RN. BP 79/49, o2 97%, rr 19, hr 63 1515 BP 73/49, hr 69, RR 17, o2 95%, dopamine infusion increased by Roland Roth RN to 20mcg 1520 BP 79/54, HR 77, rr 25, o2 95% 1521 Left arm BP 87/60 1523 echo to bedside, obtaining repeat EKG per provider order 1525 BP cuff placed back to right arm. BP 89/53, HR 77, o2 93%, RR 21 1528 Nitro infusion initiated by Shin Garcia RN per provider order at 10mcg 1530 BP 87/55, HR 76, RR 21 o2 93% 1535 BP 93/61, HR 75, o2 93%, rr 18
--- NOTE | 2024-08-28 15:42 | HMH.EDGENADL ---
Discharge Plan Disposition Patient Disposition: Admitted Clinical Impressions Clinical Impression: Symptomatic bradycardia, Hypotension, Chest pain, Breath shortness Discharge ED Provider: Ean Wolf General Adult HPI General Chief complaint: Chest Pain Stated complaint: Weakness Time Seen by Provider: 08/28/24 14:41 Mode of Arrival: Wheelchair Source of Information: Patient Description of Symptoms (Recalled from ER Triage Doc. by RN): pt reports crushing chest pain with pressure. had a heart cath with 3 stents places this am. r radial site. diaphoretic,drowsy,pale History of Present Illness HPI narrative: Tyshawn Martin is a 64y male with a history of hypertension, hyperlipidemia, diabetes, had 3 cardiac stents placed this morning by Dr. Ewing who presents to the emergency department for complaints of shortness of breath and chest pain. Patient states that 20 minutes prior to arrival, he developed sudden onset chest pain and shortness of breath. Patient was noted to be bradycardic and hypotensive on arrival. Related Data Home Medications ?Medication ?Instructions ?Recorded ?Confirmed blood sugar diagnostic (Accu-Chek 01/17/24 08/24/24 Guide test strips) lancets (Accu-Chek Softclix 01/17/24 08/24/24 Lancets) duloxetine 30 mg capsule,delayed 30 mg PO DAILY 05/17/24 08/28/24 release midodrine 5 mg tablet 5 mg PO TID 05/17/24 08/28/24 nitroglycerin 0.4 mg sublingual 0.4 mg sublingual Q5MINP PRN Chest 05/17/24 08/28/24 tablet Pain pregabalin 25 mg capsule 25 mg PO BID 05/17/24 08/28/24 rosuvastatin 40 mg tablet 40 mg PO HS 05/17/24 08/28/24 blood-glucose sensor (Dexcom G7 #1 ea 08/02/24 08/24/24 Sensor device) glipizide 10 mg tablet 10 mg PO DAILY 08/24/24 08/28/24 Previous Rx's ?Medication ?Instructions ?Recorded ranolazine 500 mg tablet,extended 500 mg PO BID 30 days #60 tabs 01/17/24 release,12 hr tamsulosin 0.4 mg capsule 0.4 mg PO HS 30 days #30 caps 05/18/24 omeprazole 40 mg capsule,delayed 40 mg PO DAILY #30 caps 06/26/24 release metoprolol succinate 50 mg 50 mg PO DAILY #30 tabs 08/22/24 tablet,extended release 24 hr (Toprol XL) aspirin 81 mg capsule 81 mg PO DAILY 30 days #30 caps 08/28/24 isosorbide mononitrate 30 mg 30 mg PO DAILY 30 days #30 tabs 08/28/24 tablet,extended release 24 hr prasugrel HCl 10 mg tablet 10 mg PO DAILY 30 days #30 tabs 08/28/24 (Effient) Allergies Allergy/AdvReac Type Severity Reaction Status Date / Time bee venom protein (honey bee) Allergy Anaphylaxis Verified 08/24/24 11:30 gabapentin Allergy Anaphylaxis Verified 08/24/24 11:30 [facility] Disclaimer: The information contained in this section may have been updated after the patient was seen, as this information can be updated by other users. Medical History Cystic-bullous disease of lung Abnormal electrocardiogram [ECG] [EKG] Coronary artery disease Leukocytosis Enlarged prostate Dizziness Angina pectoris Syncope Cystic lung, congenital History of pneumothorax Atrial fibrillation and flutter Presence of stent in LAD coronary artery Pericardial effusion without cardiac tamponade PNA (pneumonia) Diabetes GERD (gastroesophageal reflux disease) Pericarditis Angina at rest History of heart attack Hyperlipidemia Palpitations Hypertension Heart murmur Arrhythmia History of left heart catheterization (LHC) RBBB (right bundle branch block with left anterior fascicular block) Surgical History Hx of heart artery stent Previous back surgery Family History Family history of stroke Family history of hypertension Family history of COPD (chronic obstructive pulmonary disease) Family history of myocardial infarction Lung cancer Family history of hyperlipidemia Social History Smoking Status: Former smoker tobacco type: cigarettes packs per day: 1 alcohol intake: former current occupational status: previously employed and disabled Travel in the last 8 weeks?: None Have you lived/traveled outside [place] in past 30 days?: No Contact w/someone who lives/traveled outside [place] past 30 days?: No Exposure to someone with infectious disease in past 14 days?: No Do you have a fever (greater than 100.4 F or 38 C)?: No Have you tested positive for COVID-19?: No Exposed to someone with COVID-19 in past 14 days?: No Do you have a sore throat?: No Do you have a cough?: No Do you have any weakness?: No Do you have any diarrhea?: No Are you experiencing any unusual bleeding?: No Do you have any muscle aches/pain?: No Do you have any abdominal pain?: No Are you experiencing loss of taste or smell?: No Other Medical History Have you received the Flu Vaccine for this season: No Have you received the Pneumonia Vaccine: Yes ROS Obtained: Yes Systems reviewed as appropriate & no additional complaints except as documented Physical Exam General General appearance: alert Comment: Ill-appearing Head Head exam: atraumatic Eye Eye exam: Present normal appearance ENT ENT exam: Present normal external ear exam Neck Neck exam: Present full ROM Chest Chest inspection: Present symmetric chest wall rise Respiratory Respiratory exam: Present normal lung sounds bilaterally and respiratory distress; Absent wheezes or stridor Cardiovascular Cardiovascular exam: Present normal rhythm and bradycardia Abdominal Exam Abdominal exam: Present soft and distention; Absent tenderness or guarding exam: Present deferred Extremities Exam Extremities exam: Present normal inspection Back Exam Back exam: Present normal inspection Neurological Exam Neurological exam: Present alert and oriented X3 Psychiatric Psychiatric exam: Present normal affect Skin Skin exam: Present warm, dry and other (Pale) Medical Decision Making Medical Records Screening: Per USPSTF and CDC recommendations, given the prevalence of disease in our region, it is our hospital?s policy to screen for HIV and viral Hepatitis for all patients aged 18 and over and those with ongoing risk factors. Moshe Inquiry Pt receiving controlled substance: No Vital Signs: 08/28/24 14:52 08/28/24 14:53 08/28/24 14:55 Temperature 97.9 F Temperature Source Oral Pulse Rate 60 48 L Pulse Rate [Right] 50 L Respiratory Rate 15 22 14 Blood Pressure 86/59 L 91/63 L Blood Pressure [Right Arm] 86/59 L Blood Pressure Mean 64 69 Blood Pressure Mean [Right Arm] 68 02 Sat by Pulse Oximetry 97 98 97 08/28/24 14:55 08/28/24 15:00 08/28/24 15:05 Temperature Temperature Source Pulse Rate 48 L 54 L 54 L Pulse Rate [Right] Respiratory Rate 22 16 16 Blood Pressure 90/66 L 84/61 L 82/56 L Blood Pressure [Right Arm] Blood Pressure Mean 73 67 63 Blood Pressure Mean [Right Arm] 02 Sat by Pulse Oximetry 98 98 98 08/28/24 15:10 08/28/24 15:13 08/28/24 15:15 Temperature Temperature Source Pulse Rate 54 L 60 Pulse Rate [Right] Respiratory Rate 16 22 Blood Pressure 70/48 L 79/49 L 73/49 L Blood Pressure [Right Arm] Blood Pressure Mean 53 57 56 Blood Pressure Mean [Right Arm] 02 Sat by Pulse Oximetry 98 98 08/28/24 15:19 08/28/24 15:20 08/28/24 15:21 Temperature Temperature Source Pulse Rate 76 72 72 Pulse Rate [Right] Respiratory Rate 24 24 24 Blood Pressure 79/54 L 95/55 L 87/60 L Blood Pressure [Right Arm] Blood Pressure Mean 60 68 66 Blood Pressure Mean [Right Arm] 02 Sat by Pulse Oximetry 93 L 94 L 94 L Lab Data Lab Results 08/28/24 14:40: WBC 11.8 H, RBC 4.90, Hgb 15.3, Hct 44.0, MCV 89.8, MCH 31.2, MCHC 34.8, RDW 12.5, Plt Count 226, MPV 10.7 H, Neut % (Auto) 31.0 L, Lymph % (Auto) 60.1 H, Hayes % (Auto) 5.9, Eos % (Auto) 2.1, Baso % (Auto) 0.6, Neut # (Auto) 3.7, Lymph # (Auto) 7.1 H, Hayes # (Auto) 0.7, Eos # (Auto) 0.3, Baso # (Auto) 0.1, Total Counted 100, Neutrophils % (Manual) 25 L, Lymphocytes % (Manual) 59 H, Monocytes % (Manual) 14 H, Eosinophils % (Manual) 1, Basophils % (Manual) 1.0, Platelet Estimate Normal, Giant Platelets 1+, RBC Morphology Normal, PT 11.2, INR 1.01, APTT 35.8 H, D-Dimer 1.43 H, Sodium 135 L, Potassium 4.4, Chloride 103, Carbon Dioxide 25, Anion Gap 11.4, BUN 13, Creatinine 0.70 D, Estimated Creat Clear 98, Estimated GFR 113, Est GFR ( Amer) 137 D, Glucose 177 H, Calcium 9.1, Magnesium 1.5 L, Total Bilirubin 0.9, AST 54, ALT 38, Alkaline Phosphatase 66, Troponin I 0.05 H, NT-Pro-B Natriuret Pep 122, Total Protein 7.2, Albumin 4.4, Globulin 2.8, Albumin/Globulin Ratio 1.6, Lipase 88 08/28/24 14:40 08/28/24 14:40 Orders (Tests/Meds): ED MEDICATIONS Generic Name Dose Route Start Last Admin Trade Name Freq PRN Reason Stop Dose Admin Nitroglycerin/Dextrose 250 mls @ 3 mls/hr 08/28/24 15:00 08/28/24 15:29 Nitroglycerin 50mg/250ml D5w IV 09/27/24 14:59 10 mcg/min .Q24H YESSENIA 3 mls/hr Protocol Administration 10 MCG/MIN Dopamine HCl/Dextrose 250 mls @ 17.86 mls/hr 08/28/24 15:15 08/28/24 15:08 Dopamine 400mg/250ml D5w IV 09/27/24 15:14 5 mcg/kg/min .Q14H YESSENIA 17.86 mls/hr Protocol Administration 5 MCG/KG/MIN Sodium Chloride 500 mls @ 999 mls/hr 08/28/24 16:36 Sod Chlor 0.9% 1000ml Bag IV 08/28/24 17:06 .Q31M ONE Insulin Human Lispro 0 unit 08/28/24 16:30 Humalog 100 Units/Ml 10ml Vial (Ssi) SUBCUT 09/27/24 16:29 ACHS YESSENIA Protocol Discontinued Medications Generic Name Dose Route Start Last Admin Trade Name Freq PRN Reason Stop Dose Admin Atropine Sulfate 1 mg 08/28/24 14:57 08/28/24 14:50 Atropine 1mg/10ml Syringe (Crash Cart) IV 08/28/24 14:58 1 mg ONCE ONE Administration Heparin Sodium (Porcine) 5,000 unit 08/28/24 16:22 Heparin Sodium 5,000 Unit/Ml Vial SUBCUT 08/28/24 16:23 TID ONE Dopamine HCl/Dextrose 250 mls @ 17.86 mls/hr 08/28/24 14:56 08/28/24 15:38 Dopamine 400mg/250ml D5w IV 09/27/24 14:55 Not Given .Q14H YESSENIA Protocol 5 MCG/KG/MIN Sodium Chloride 1,000 mls @ 999 mls/hr 08/28/24 14:56 08/28/24 15:12 Sod Chlor 0.9% 1000ml Bag IV 08/28/24 15:56 999 mls/hr .Q1H1M ONE Administration Iopamidol 80 ml 08/28/24 16:04 08/28/24 16:05 Iopamidol-370 (76%);100ml Bottle IV 08/28/24 16:05 80 ml ONCE ONE Administration Ondansetron HCl 4 mg 08/28/24 15:15 08/28/24 15:17 Ondansetron 4mg/2ml Vial IV 08/28/24 15:16 4 mg ONCE ONE Administration Sodium Chloride 10 ml 08/28/24 16:04 08/28/24 16:05 Sodium Chloride 0.9% 10ml Syr (Rad Only) IV 08/28/24 16:05 10 ml ONCE ONE Administration Sodium Chloride 50 ml 08/28/24 16:04 08/28/24 16:05 0.9 % Sodium Chloride 50 Ml Vial IV 08/28/24 16:05 50 ml ONCE ONE Administration ORDERS Category Date Time Status CT angio chest PE protocol Stat Cat Scan 08/28/24 15:47 Taken CA echo limited Stat Exams 08/28/24 15:18 Completed Chest XR -- portable [XR chest portable] Stat Exams 08/28/24 14:53 Completed POCUS Point of Care (ER Only) Stat Exams 08/28/24 14:42 Completed BNP [NT Pro Brain Natriuretic Pep.] Stat Lab 08/28/24 14:40 Received CBC [Complete Blood Count Auto Diff] Stat Lab 08/28/24 14:40 Completed Complete Blood Count Auto Diff AMLAB Lab 08/29/24 06:00 Ordered Comprehensive Metabolic Panel AMLAB Lab 08/29/24 06:00 Ordered Comprehensive Metabolic Panel Stat Lab 08/28/24 14:40 Completed Cortisol DAILY Lab 08/29/24 06:00 Ordered D-Dimer Stat Lab 08/28/24 14:40 Completed Hemoglobin A1C Stat Lab 08/28/24 14:40 Received Lipase Stat Lab 08/28/24 14:40 Completed Magnesium AMLAB Lab 08/29/24 06:00 Ordered Magnesium Stat Lab 08/28/24 14:40 Completed PT INR [Prothrombin Time INR] Stat Lab 08/28/24 14:40 Completed PTT [Activated Partial Thrombo Time] Stat Lab 08/28/24 14:40 Completed Trop I [Troponin I] Stat Lab 08/28/24 14:40 Completed Troponin I Q3H Lab 08/28/24 18:00 Ordered Troponin I Q3H Lab 08/28/24 21:00 Ordered Medical Decision Narrative: Tyshawn Martin is a 64y male with a history of hypertension, hyperlipidemia, diabetes, had 3 cardiac stents placed this morning by Dr. Ewing who presents to the emergency department for complaints of shortness of breath and chest pain. Patient states that 20 minutes prior to arrival, he developed sudden onset chest pain and shortness of breath. Patient was noted to be bradycardic and hypotensive on arrival. On arrival, patient is hypotensive 86/59, bradycardic into the 40s, borderline hypoxic with oxygen saturation 93% was put on 4 L nasal cannula. Afebrile. Physical exam, stated above, revealed an ill appearing male in mild to moderate respiratory distress. He is complaining of mid chest pain and shortness of breath at this time. Lung sounds present bilaterally. No murmurs appreciated. Abdomen is soft, nontender. Does appear mildly distended but is not having any abdominal pain. Due to patient's hypotension, patient was started on 500 cc fluid bolus after 2 points of IV access were obtained. Initial EKG showed sinus bradycardia with T wave inversions in leads II, 3, aVF as well as V4, V5 and V6. Patient has mild ST elevation in aVL and V2. Very mild ST depression in aVF. Does not meet STEMI criteria. [id number] cardiac ultrasound was performed and showed grossly normal EF, no pericardial effusion. No wall motion abnormalities. See procedure note for details. Patient was given 1 mg atropine for symptomatic bradycardia and hypotension. Differential diagnosis includes, but is not limited to: ACS, vasospasm, cardiac valve rupture, cardiac free wall rupture, cardiac tamponade, pneumothorax, polypharmacy, aspiration pneumonitis, among others. Shortly after patient's arrival, I discussed patient's case with Dr. Ewing and he advised putting the patient on dopamine drip starting at 5mcg/kg/min as well as nitroglycerin 10 mcg/min. These were initiated. Patient's blood pressure continued to be hypotensive with systolics now in the 70s. Ultimately, patient's dopamine drip was titrated up to 20 mcg/kg/min with improvement of systolic pressures into the 80s. Patient was given an additional 1 L lactated ringer. Due to concern for vasospasm, nitroglycerin drip was started at 10 mcg/min. Repeat EKG was obtained and was interpreted by me personally. T wave inversions are no longer present except in lead III. ST changes have resolved. Per Dr. Ewing, formal echocardiogram was performed. This also confirmed no pericardial effusion and no wall motion abnormalities and normal ejection fraction. Patient's blood pressures overall improved to the 90s over 50s systolic. CT pulmonary embolism was obtained to rule out PE as source of patient's symptoms and vital sign abnormalities. On my interpretation, no evidence of pulmonary embolism, no evidence of aortic dissection. There are few groundglass opacities at the bilateral bases that likely represents atelectasis versus component of aspiration given recent coronary stenting. See final radiology report for additional details. At this time, patient's bradycardia has improved and heart rate is at 72 bpm. He continues to remain hypotensive on dopamine and nitroglycerin drip with blood pressure 87/60. Will admit patient to the ICU at this time. Discussed the patient's case with Dr. Quinn who graciously agreed to admit the patient. Procedures Limited Ultrasound Interpretation:: Limited cardiac ultrasound Indication: Chest pain, shortness of breath, hypotension Identified cardiac views: -Cardiac parasternal long axis -Cardiac parasternal short axis -Cardiac apical four-chamber -Cardiac subxiphoid Findings: -Cardiac activity present -Wall motion grossly normal -Pericardial effusion absent -Right heart strain absent Impression: - From above Images were saved to permanent archive The study was technically adequate CPT: 65787 This study was performed by me, and I personally interpreted all images/videos. Based on my clinical judgement, these images were adequate and did not necessitate further imaging. Critical Care Critical Care Time Critical Care Time: Yes Attestation: On 08/28/24, the high probability of a clinically significant, sudden or life threatening deterioration of the following system(s) required my full and direct attention, intervention and personal management. The time I documented below is in addition to time spent performing reported procedures but includes the following listed in this critical care notation. Total Time Total Critical Care Time: 60
[2024-08-28 15:44] LABS: Troponin I 0.05 ng/ml (0.00-0.034)
[2024-08-28 15:46] LABS: D-Dimer 1.43 ug/mL (0.0-0.5)
--- OUTSIDE RECORDS SUMMARY | 2024-08-28 15:46 | XMS_ITS | CCD ---
Author Organization Unknown Care Team Providers Care Ammunition Officer Name Role Phone Unavailable Primary Care Provider Unavailabl e Unavailable Chronic Care Management Unavaila ble Summary Purpose DataExchange Insurance Providers Payer name Policy type / Coverage type Covered republican ID Effective Begin Date Effective End Date [facility] [id number] Unknown Unknown Family History Family History data not found Medication Administered No Medication Administered data Reason For Visit No Reason For Visit data Medical Equipment No Medical Equipment data Advance Directives No Advance Directive data
--- OUTSIDE RECORDS SUMMARY | 2024-08-28 15:46 | XMS_ITS | CCD ---
Author Organization Unknown Care Team Providers Care Shuttle Driver Name Role Phone Unavailable Primary Care Provider Unavailabl e Unavailable Chronic Care Management Unavaila ble Summary Purpose DataExchange Insurance Providers Payer name Policy type / Coverage type Covered alliance party ID Effective Begin Date Effective End Date [facility] [id number] Unknown Unknown Family History Family History data not found Medication Administered No Medication Administered data Reason For Visit No Reason For Visit data Medical Equipment No Medical Equipment data Advance Directives No Advance Directive data
--- NOTE | 2024-08-28 15:47 | CT_ITS ---
FINAL REPORT TECHNIQUE: Thin section axial CT with contrast with multiplanar reconstruction This study was performed with techniques to keep radiation doses as low as reasonably achievable, (ALARA). Individualized dose reduction techniques using automated exposure control or adjustment of mA and/or kV according to the patient''s size were employed. CLINICAL HISTORY: SOB, chest pain, hypoxia COMPARISON: 07/21/2024 FINDINGS: Pulmonary vessels enhance in normal fashion without evidence of embolism. Thoracic aorta shows no dissection or aneurysm. There is mild dependent atelectasis of the lungs. There is scattered scarring. Pulmonary cysts, greatest along the lung bases are unchanged. There is no significant pleural effusion. There is no significant pericardial effusion. No mediastinal or hilar adenopathy is present. IMPRESSION: No acute lung disease or pulmonary embolism. Reviewed, Interpreted and Dictated by Olman Huntley MD Transcribed by Suni Pedro Authenticated and [facility]
[2024-08-28 16:00] LABS: Giant Platelets 1+; RBC Morphology Normal; Total Cells Counted 100
[2024-08-28] MEDS: IOPAMIDOL-370 (76%);100ML BOTTLE 80 ML IV (16:05)
[2024-08-28] MEDS: SODIUM CHLORIDE 0.9% 10ML SYR (RAD ONLY) 10 ML IV (16:05)
[2024-08-28] MEDS: 0.9 % SODIUM CHLORIDE 50 ML VIAL IV (16:05)
--- NOTE | 2024-08-28 16:20 | P.HP_ITS ---
History of Present Illness *Admission Date: 08/28/24 *Reason for visit:: hypotension, weakness *History of present illness: Mr. Carranza is a 64-year-old male who initially presented to the [facility] for elective heart cath today. Received 3 cardiac stents earlier this morning. 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 During heart cath he had some soft blood pressures but ultimately was discharged home in stable condition. After getting home developed onset of severe crushing chest pain. Was diaphoretic and fatigued. Presented to the ER due to his symptoms. Found to be hypotensive and bradycardic. Initial troponin undetectable at 0.05. No ST elevations on EKG. Patient placed on nitroglycerin drip and dopamine drip. Improved heart rate with dose of atropine. Cardiology consulted and requested admission for [facility] overnight. Medicine consulted for further management. Labs obtained showing white count of 11.8. Hemoglobin 15. Kidney function normal BUN 13, creatinine 0.7. TSH normal on recent labs at 0.78 formal echo obtained in the ED with a EF of 70%. Initiated on IV fluids. Received 2 L total while in the ER due to hypotension. On evaluation after initiation of consultation, patient appears pale. Is alert and oriented but slow to respond to questions. On 2 L oxygen for comfort. Heart rate in the 70s. Systolics in the 90s. Denies nausea or vomiting. States he feels subjectively short of breath. Chest pain improved but has crushing headache [facility] Disclaimer: The information contained in this section may have been updated after the patient was seen, as this information can be updated by other users. Medical History Cystic-bullous disease of lung Abnormal electrocardiogram [ECG] [EKG] Coronary artery disease Leukocytosis Enlarged prostate Dizziness Angina pectoris Syncope Cystic lung, congenital History of pneumothorax Atrial fibrillation and flutter Presence of stent in LAD coronary artery Pericardial effusion without cardiac tamponade PNA (pneumonia) Diabetes GERD (gastroesophageal reflux disease) Pericarditis Angina at rest History of heart attack Hyperlipidemia Palpitations Hypertension Heart murmur Arrhythmia History of left heart catheterization (LHC) RBBB (right bundle branch block with left anterior fascicular block) Surgical History Hx of heart artery stent Previous back surgery Family History Family history of stroke Family history of hypertension Family history of COPD (chronic obstructive pulmonary disease) Family history of myocardial infarction Lung cancer Family history of hyperlipidemia Social History Smoking Status: Former smoker tobacco type: cigarettes packs per day: 1 alcohol intake: former current occupational status: previously employed and disabled Travel in the last 8 weeks?: None Have you lived/traveled outside US in past 30 days?: No Contact w/someone who lives/traveled outside US past 30 days?: No Exposure to someone with infectious disease in past 14 days?: No Do you have a fever (greater than 100.4 F or 38 C)?: No Have you tested positive for COVID-19?: No Exposed to someone with COVID-19 in past 14 days?: No Do you have a sore throat?: No Do you have a cough?: No Do you have any weakness?: No Do you have any diarrhea?: No Are you experiencing any unusual bleeding?: No Do you have any muscle aches/pain?: No Do you have any abdominal pain?: No Are you experiencing loss of taste or smell?: No Other Medical History Have you received the Flu Vaccine for this season: No Have you received the Pneumonia Vaccine: Yes Review of Systems Review of Systems Review of systems (narrative): 14 point review of systems performed, pertinent positives and negatives as per HPI Meds Home Medications and Allergies Home Medications ?Medication ?Instructions ?Recorded ?Confirmed ?Type blood sugar diagnostic (Accu-Chek 01/17/24 08/24/24 H istory Guide test strips) lancets (Accu-Chek Softclix 01/17/24 08/24/24 History Lancets) ranolazine 500 mg tablet,extended 500 mg PO BID 30 day s #60 tabs 01/17/24 08/28/24 Rx release,12 hr duloxetine 30 mg capsule,delayed 30 mg PO DAILY 08/28/24 History release midodrine 5 mg tablet 5 mg PO TID 05/17/24 5 History nitroglycerin 0.4 mg sublingual 0.4 mg sublingual Q5MI [employer] PRN Chest 05/17/24 08/28/24 History tablet Pain pregabalin 25 mg capsule 25 mg PO BID 05/17/24 History rosuvastatin 40 mg tablet 40 mg PO HS 05/17/24 5 History tamsulosin 0.4 mg capsule 0.4 mg PO HS 30 days #30 cap s 05/18/24 08/28/24 Rx omeprazole 40 mg capsule,delayed 40 mg PO DAILY #30 ca ps 06/26/24 08/28/24 Rx release blood-glucose sensor (Dexcom G7 #1 ea 08/02/24 5 History Sensor device) metoprolol succinate 50 mg 50 mg PO DAILY #30 tabs 08/28/24 Rx tablet,extended release 24 hr (Toprol XL) glipizide 10 mg tablet 10 mg PO DAILY 08/24/2408/08 History aspirin 81 mg capsule 81 mg PO DAILY 30 days #30 c aps 08/28/24 Rx isosorbide mononitrate 30 mg 30 mg PO DAILY 30 days #3 0 tabs 08/28/24 Rx tablet,extended release 24 hr prasugrel HCl 10 mg tablet 10 mg PO DAILY 30 days #30 tabs 08/28/24 Rx (Effient) New Prescriptions to Start Prescriptions: Allergies Allergy/AdvReac Type Severity Reaction Status Date / Time bee venom protein (honey bee) Allergy Anaphylaxis Verified 08/24/24 11:30 gabapentin Allergy Anaphylaxis Verified 08/24/24 11:30 insect venom Allergy Anaphylaxis Verified 08/28/24 18:47 Exam Data for Last 24 hours Vital signs and Labs for Last 24 Hours: Temp Pulse Resp BP Pulse Ox 97.9 F 72 24 87/60 L 94 L 08/28/24 14:55 08/28/24 15:21 08/28/24 15:21 08/28/24 15:21 08/28/24 15:21 Laboratory Results - last 24 hr 08/28/24 14:40: WBC 11.8 H, RBC 4.90, Hgb 15.3, Hct 44.0, MCV 89.8, MCH 31.2, MCHC 34.8, RDW 12.5, Plt Count 226, MPV 10.7 H, Neut % (Auto) 31.0 L, Lymph % (Auto) 60.1 H, Stewart % (Auto) 5.9, Eos % (Auto) 2.1, Baso % (Auto) 0.6, Neut # (Auto) 3.7, Lymph # (Auto) 7.1 H, Stewart # (Auto) 0.7, Eos # (Auto) 0.3, Baso # (Auto) 0.1, Total Counted 100, Neutrophils % (Manual) 25 L, Lymphocytes % (Manual) 59 H, Monocytes % (Manual) 14 H, Eosinophils % (Manual) 1, Basophils % (Manual) 1.0, Platelet Estimate Normal, Giant Platelets 1+, RBC Morphology Normal, PT 11.2, INR 1.01, APTT 35.8 H, D-Dimer 1.43 H, Sodium 135 L, Potassium 4.4, Chloride 103, Carbon Dioxide 25, Anion Gap 11.4, BUN 13, Creatinine 0.70 D , Estimated Creat Clear 98, Estimated GFR 113, Est GFR ( Amer) 137 D, Glucose 177 H, Calcium 9.1, Magnesium 1.5 L, Total Bilirubin 0.9, AST 54, ALT 38, Alkaline Phosphatase 66, Troponin I 0.05 H, Total Protein 7.2, Albumin 4.4, Globulin 2.8, Albumin/Globulin Ratio 1.6, Lipase 88 I & O for Last 24 hours: Intake & Output 08/25/24 08/26/24 08/27/24 08/28/24 23:59 23:59 23:59 23:59 Weight 95.254 kg Constitutional Constitutional: mild distress, chronically ill appearing and disheveled *Routine HEENT Exam Head: Present normocephalic Eye: Present EOMI and PERRL ENT: Present mucous membranes moist *Routine Neck Exam Neck: Present supple; Absent lymphadenopathy Routine Chest/Breast/Axilla Exam Chest wall: Present tenderness (Left pectoralis) *Routine Respiratory Exam Respiratory: Present CTA bilaterally *Routine Cardiovascular Exam Cardiovascular: Present RRR *Routine Abdominal Exam Abdominal: Present soft and normoactive bowel sounds; Absent tenderness *Routine Rectal Exam Rectal:: deferred *Routine Genitalia Exam Genitalia:: deferred *Routine Extremities Exam Extremities: Absent cyanosis, clubbing or edema *Routine Skin Exam Skin: Present intact, pallor and warm; Absent rash Comments: diaphoretic *Routine Neurological Exam Neurological: Present alert, oriented X3 and moving all extremities; Absent altered mental status Assessment and Plan *Assessment and plan (1) Shock: Status: Acute Category: Medical Code(s): R57.9 - Shock, unspecified (2) Coronary artery disease with unstable angina pectoris: Status: Acute Qualifiers: Coronary Disease-Associated Artery/Lesion type: [place] artery [place] vs. transplanted heart: [place] heart Qualified Code(s): I25.110 - Atherosclerotic heart disease of [place] coronary artery with unstable angina pectoris Category: Medical Code(s): I25.110 - Atherosclerotic heart disease of [place] coronary artery with unstable angina pectoris (3) Tobacco use: Status: Chronic Category: Social Hx Code(s): Z72.0 - Tobacco use (4) RBBB (right bundle branch block with left anterior fascicular block): Status: Acute Category: Medical Code(s): I45.2 - Bifascicular block (5) Diabetes: Status: Chronic Qualifiers: Diabetes mellitus complication status: without complication Diabetes mellitus halfway insulin use: without halfway use Diabetes mellitus type: type 2 Qualified Code(s): E11.9 - Type 2 diabetes mellitus without complications Category: Medical Code(s): E11.9 - Type 2 diabetes mellitus without complications (6) Hypertension: Status: Chronic Qualifiers: Hypertension type: primary hypertension Qualified Code(s): I10 - Essential (primary) hypertension Category: Medical Code(s): I10 - Essential (primary) hypertension (7) Hyperlipidemia: Status: Chronic Qualifiers: Hyperlipidemia type: mixed hyperlipidemia Qualified Code(s): E78.2 - Mixed hyperlipidemia Category: Medical Code(s): E78.5 - Hyperlipidemia, unspecified (8) Presence of stent in LAD coronary artery: Status: Chronic Category: Medical Code(s): Z95.5 - Presence of coronary angioplasty implant and graft Plan 64-year-old male with history of microvascular coronary artery disease. Presented for elective left heart cath today, received 3 stents. Upon arrival home developed onset of crushing chest pain. Presented with hypotension and bradycardia. Initiated on dopamine drip and nitroglycerin drip. Discussed case with ER physician, request admission to ICU for further management given patient's shock on presentation. I decided to admit for further management. On 2 L oxygen for comfort. Afebrile. Alert and oriented but fatigued and pale. High risk for decompensation. Problems addressed as follows: Unstable angina Chest pain Hypotension/shock CAD status post left heart cath today -Initial troponin 0.05. EKG with no ST elevation. Echo obtained in the ER, reviewed results showing EF 70%. - Admitted to ICU. Will continue nitroglycerin drip due to chest pain. De- escalate dopamine due to normal EF. Monitor for improvement in blood pressure. - Cardiology consulted to evaluate patient in the morning - Chest CTA negative for PE or dissection. Per my review has bolus emphysematous findings. -Holding beta-blockers -Will administer 1 dose glucagon IV 1 mg to counteract beta-blockade - Due to placement of stents today, will resume prasugrel 10 mg daily and aspirin 81 mg daily. - Resume ranolazine 500 mg p.o. twice daily, Crestor 40 mg nightly A-fib - On metoprolol succinate 50 mg daily at home. Rate controlled. Blood pressure soft however; we will therefore hold beta-demetri at this time. - [id number] score of 4 (hypertension, diabetes, vascular disease, age). Recommend Eliquis 5 mg twice daily but previously had pericardial effusion while on anticoagulation, so will hold for now. - Cardiology consulted to evaluate in the morning Diabetes mellitus - Recent hemoglobin A1c 6.7 in May, repeat ordered and pending. - SSI with FSGS achs - Glucose 177 on admission. BUN 13, creatinine 0.7. Potassium 4.4. Magnesium 1.5. Repeat CBC, CMP, magnesium ordered for the morning. Hyperlipidemia: LDL 139 in January 2024; continue Crestor 40 mg nightly Cardiac diet, n.p.o. at midnight Heparin 5,000 U TID Full code
--- NOTE | 2024-08-28 16:20 | PC.NURSE ---
piping supervisor notified of need for bed.
[2024-08-28 16:31] LABS: NT Pro Brain Natriuretic Pep. 122 pg/mL (0-125)
[2024-08-28 17:05] LABS: Hemoglobin A1C 7.2 % (4.0-6.0)
[2024-08-28] MEDS: GLUCAGON 1 MG/ML VIAL IV (18:45)
--- NOTE | 2024-08-28 19:02 | ECG_ITS ---
APPROVED REPORT Exam: Resting ECG HR:64 bpm ECG Measurements Heart Rate [address] 171 P 88 QRSd 148 QRS -69 QT 476 T 12 QTc 486 Conclusion SINUS RHYTHM LEFT AXIS DEVIATION [QRS AXIS < -30] RIGHT BUNDLE BRANCH BLOCK [120+ ms QRS DURATION, UPRIGHT V1, 40+ ms S IN I/aVL/V4/V5/V6] SEPTAL MYOCARDIAL INFARCTION , PROBABLY OLD [40+ ms Q WAVE IN V1/V2] ABNORMAL ECG UNCONFIRMED REPORT Electronically signed by : Ever Romero MD 08/29/2024 07:54:37
[2024-08-28 19:11] LABS: Troponin I 0.07 ng/ml (0.00-0.034)
--- NOTE | 2024-08-28 19:45 | P.EN_ITS ---
problem: Receiving port and change of shift, went to examine patient presently nitroglycerin drip. Was on max dopamine, patient still having pain. Orders placed to restart nitroglycerin twelve-lead EKG grab an extra troponin to for reference antinausea medicine ordered, and Levophed ordered given if patient becomes soft and blood pressure again. exam: Patient was awake able to answer questions in quite a bit of distress as far as having chest pain. Nitroglycerin restarted chest pain decreased, blood pressure was actually elevated for short period of time this is come back down t o 130 systolic without the Levophed being started, patient now asking for something to drink Plan: Will continue nitroglycerin drip at this point in time it seems to have helped any chest pain. Was having low blood pressures still on max dopamine question contraindication of increasing systemic resistance to keep up the patient's blood pressure versus nitroglycerin which can lower it but then also dilate cardiac arteries.. Patient pain has improved. I have talked with the nurse to slowly decrease dopamine if able to keep the MAP near 65. Only to use the Levophed if needed.. Also will start Pepcid 20 mg IV now. Will allow the patient to have ice chips if no longer nauseated will advance to clear liquids. Talked with the nurse about slowly weaning the dopamine along as pressures are m aintained. Presently patient is much improved. Also evaluated twelve-lead EKG there was no sign of any ST elevation or depression.
[2024-08-28] MEDS: MORPHINE 4MG/ML SYRINGE 2 MG IV (19:55)
[2024-08-28] MEDS: DOPAMINE HCL/D5W 250 ML 64.3 MG IV (21:42)
[2024-08-28 22:10] LABS: Troponin I 0.06 ng/ml (0.00-0.034)
[2024-08-28] MEDS: humaLOG 100 UNITS/ML 10ML VIAL (SSI) SUBCUT (22:29)
[2024-08-28] MEDS: FAMOTIDINE 20MG/2ML VIAL 20 MG IV (22:31)
[2024-08-28] MEDS: SODIUM CHLORIDE 0.9% 10ML VIAL 8 ML IV (22:32)
[2024-08-29] VITALS (36 sets, daily range): BP systolic 89–124; BP diastolic 47–88; PULSE 60–81; RESP 5–22; TEMP -7.7–37.1; O2SAT 94–98; BMI 29.2
[2024-08-29] MEDS: ONDANSETRON 4MG/2ML VIAL 4 MG IV ×2 (01:41→16:26)
[2024-08-29] MEDS: MORPHINE 4MG/ML SYRINGE 2 MG IV (01:42)
[2024-08-29] MEDS: DOPAMINE HCL/D5W 250 ML 42.86 MG IV ×2 (04:10→09:57)
--- NOTE | 2024-08-29 05:23 | PC.NURSE ---
Patient is resting in bed with HOB elevated and on Room air. NAD noted in condition. VSS at this time. Comfort measures have been give for pain and nausea x2 during the shift.no changes in patient's classroom monitor readings noted.
[2024-08-29 05:55] LABS: POC Glucose,Bedside 241 (70-110)
[2024-08-29 05:55] LABS: POC Glucose,Bedside 237 (70-110)
[2024-08-29 05:55] LABS: POC Glucose,Bedside 373 (70-110)
[2024-08-29] MEDS: humaLOG 100 UNITS/ML 10ML VIAL (SSI) SUBCUT ×3 (05:58→20:56)
[2024-08-29 06:15] LABS: Hematocrit 38.4 % (42.0-52.0); Immature Granulocytes % 0.4 %; Mean Corpuscular HGB Conc 35.2 g/dL (31.8-35.4); Mean Corpuscular Hemoglobin 31.0 pg (27.0-31.2); Mean Corpuscular Volume 88.1 fl (80-94); Nucleated Red Blood Cells % 0 %; Platelet Count 226 K/mm3 (142-424); Red Blood Count 4.36 M/mm3 (4.60-6.20); Red Cell Distribution Width-SD 39.4 fL; White Blood Count 12.9 K/mm3 (4.8-10.8)
[2024-08-29 06:30] LABS: Alanine Aminotransferase 35 U/L (12-78); Albumin Level 3.9 g/dl (3.5-5.0); Albumin/Globulin Ratio 1.6 (1.1-1.8); Alkaline Phosphatase 71 U/L (38-126); Anion Gap 11.4 mEq/L (5-15); Aspartate Amino Transferase 44 U/L (17-59); Bilirubin,Total 0.9 mg/dl (0.2-1.3); Blood Urea Nitrogen 11 mg/dl (9-20); Calcium 8.8 mg/dl (8.4-10.2); Carbon Dioxide 24 mmol/L (22.0-30.0); Chloride 104 mmol/L (98-107); Creatinine Clearance Estimated 101 mL/min (50-200); Creatinine,Serum 0.80 mg/dl (0.66-1.25); Estimated Glomerular Filt Rate 97 ml/min (>60); GFR (African American) 117 ML/MIN (>60); Globulin 2.4 g/dL (1.3-3.2); Glucose 243 mg/dl (74-100); Magnesium 1.4 mg/dl (1.6-2.3); Potassium 4.4 mmoL/L (3.5-5.1); Sodium 135 mmol/L (136-145); Total Protein,Serum 6.3 g/dl (6.3-8.2)
[2024-08-29 06:39] LABS: Hemoglobin 13.6 g/dL (14.1-18.0)
[2024-08-29] MEDS: PREGABALIN 25MG CAPSULE 25 MG PO ×2 (08:47→20:56)
[2024-08-29] MEDS: PRASUGREL 10MG TAB 10 MG PO (08:47)
[2024-08-29] MEDS: SODIUM CHLORIDE 0.9% 10ML VIAL 8 ML IV ×2 (08:49→20:55)
[2024-08-29] MEDS: RANOLAZINE 500MG ER TABLET 500 MG PO (08:49)
[2024-08-29] MEDS: ASPIRIN EC 81MG TABLET 81 MG PO (08:49)
[2024-08-29] MEDS: FAMOTIDINE 20MG/2ML VIAL 20 MG IV ×2 (08:49→20:55)
[2024-08-29] MEDS: ACETAMINOPHEN 500MG TAB 500 MG PO (09:18)
--- NOTE | 2024-08-29 10:15 | XR_ITS ---
FINAL REPORT CLINICAL HISTORY: chest pain, elevated white count COMPARISON: 08/28/2024 FINDINGS: A single frontal view of the chest was obtained. Increased markings in the medial right upper lobe and right perihilar region are stable and likely represent atelectasis or scarring. The left lung is clear. Mediastinum is unremarkable. Heart size is mildly enlarged. IMPRESSION: No significant change in right lung markings as above. Reviewed, Interpreted and Dictated by Olman Huntley MD Transcribed by Enid Douglas Authenticated and [facility]
[2024-08-29 11:12] LABS: POC Glucose,Bedside 213 (70-110)
--- NOTE | 2024-08-29 11:29 | CA_ITS ---
APPROVED REPORT EXAM: Comprehensive 2D, Doppler, and color-flow Echocardiogram Grade Foreman: Rhonda Da Silva RVT Ht: 6 ft 0 in Wt: 215lbs BSA: 2.20 BP: 104/59 mmHg Indications: CHEST PAIN POST STENTING 08/28/24 2D Dimensions IVSd 1.86 cm M: 0.6-1.2 LVEF (Visual) 74.60 % PWd 1.55 cm M: 0.6 - 1.2 LA Volume 70.80 mL LVDd 4.31 cm M: 4.2 - 5.9 LA Volume Index 32.18 mL/m2 (M/F) 16-34 LVDs 2.45 cm M: 2.5 - 4.0 EF AP4 63.50 % Aortic Root 2.12 cm M: 3.1 - 3.7 GL Strain -18.1 % Left Atrium 4.87 cm M: 3.0 - 4.0 RVID Base (AP4) 2.91 cm (M/F) 2.5-4.1 LVOT 2.35 cm (M/F) 1.5-2.5 M-Mode Dimensions LVDd 4.31 cm (3.5-5.7) Ao Diam 3.85 cm (2.0-3.7) LVDs 2.45 cm (3.5-5.7) IVSd 1.86 cm (0.6-1.1) PWd 1.55 cm (0.6-1.1) FS 43.20% TAPSE 1.78 (<1.7) LV Diastology E Decel Time 264 (160-240 msec) E/A Ratio 1.1 MED E' 10.0 (>= 7 cm/sec) E'/MED E' Ratio 8.76 (<= 14) LAT E' 8.7 (>= 10 cm/sec) E/LAT E' Ratio 10.07 (<= 14) Aortic Valve LVOT Max 93.0 (70-110 cm/s) GREG Index 1.39 cm2/m2 LVOT VTI 17.75 cm AoV Peak Asa. 127.0 (50-130 cm/s) AO Peak GR. 6.20 mmHg AO Mean GR. 3.80 (<5 mmHg) AO VTI 25.1 (18-25 cm) GREG (VTI) 3.06 (2.5-4.5 cm2) Mitral Valve MV E Max Asa. 88.0 (40-130 cm/s) MV A Velocity 83.0 (40-130 cm/s) E/A Ratio 1.05 MV Decel. Time 264 (160-240 ms) Left Ventricle The left ventricle is normal size. The left ventricular systolic function is normal. The left ventricular ejection fraction is within the normal range. There is increased left ventricular wall thickness. There is normal LV segmental wall motion. The left ventricular diastolic function is normal. LVEF is 55%. Right Ventricle The right ventricle is normal size. The right ventricular systolic function is normal. Atria The left atrium is mildly dilated. The right atrium size is normal. There is no color Doppler evidence of interatrial shunt. Aortic Valve The aortic valve is mildly thickened. There is no hemodynamically significant aortic valvular stenosis. Mild aortic regurgitation is present. Mitral Valve The mitral valve is normal in structure. No evidence of mitral valve stenosis. Mild mitral regurgitation. Tricuspid Valve The tricuspid valve leaflets are thin and pliable. Trace tricuspid regurgitation. There is insufficient TR jet to estimate RVSP. Pulmonic Valve The pulmonary valve is grossly normal in structure. Trace pulmonic regurgitation. Great Vessels The aortic root is mildly dilated, measuring 4.5 cm in diameter. IVC is normal in size and collapses >50% with inspiration. Pericardium There is no pericardial effusion. Other Information Study Quality: Fair Conclusion Normal biventricular systolic function. Mild LA dilation. Mild AI, mild MR. No evidence of pericardial effusion. Mildly dilated aortic root, measuring 4.5 cm in diameter. Electronically signed by : Kymberly Conklin MD 08/29/2024 12:56:21
[2024-08-29 12:03] LABS: Microscopic, Urine URINE MICROSCOPIC (MICROSCOPIC)
[2024-08-29] MEDS: ISOSORBIDE DINITRATE 10 MG TABLET PO ×2 (12:03→20:55)
[2024-08-29 12:52] LABS: Bilirubin,Urine Negative (Negative); Color,Urine YELLOW (Yellow); Glucose,Urine (UA) TRACE (Negative); Ketones,Urine Negative (Negative); Leukocyte Esterase,Urine Negative (Negative); PH,Urine 6.0 (5.0-8.5); Protein,Urine Negative (Negative); Specific Gravity, Urine <= 1.005 (1.005-1.030); Urobilinogen,Urine 0.2 EU/dl (0.2)
--- NOTE | 2024-08-29 12:52 | P.CONCA_ITS ---
History of Present Illness History of Present Illness Consult date: 08/29/24 Requesting physician: Roscoe Richards Consult reason: chest pain Chief complaint: chest pain History of present illness: This is a 64-year-old white gentleman who presented to the emergency department following left cardiac catheterization yesterday. The patient was taken to [facility] as an outpatient where he had 2 stents placed to the LAD and 1 stent placed to the ramus. He tolerated the procedure well and was discharged following his procedure in stable condition. Once he got home the patient states that he developed crushing, severe chest pain. He was short of breath, diaphoretic and fatigued. He did not feel well and had his mother bring him back to the emergency department. When he got to the emergency department he wa s found to be hypotensive and bradycardic. Troponin was 0.05 upon arrival to the emergency department and went up to 0.07 which was most likely from his coronary interventions yesterday. He had no EKG changes and no significant elevation in his troponins. The patient was started on a nitroglycerin drip for his chest pain and had to be put on a dopamine drip to support his blood pressure. Heart rate improved with a dose of atropine. Cardiology was consulted. He states that he is still having chest pain intermittently and describes it as a stinging sensation in the left side of his chest. He states that it does not radiate. He still feels very tired and is fatigued. Of note, the patient's white blood cell count was elevated at 13.1 prior to proceeding with left cardiac catheterization and remains elevated at this time. Highly concerned that the patient is bacteremic and has sepsis, which is the likely cause of his symptoms and is most likely not cardiac in nature. This morning he denies any fever, chills, nausea, vomiting, diarrhea, PND or orthopnea. He denies any lower extremity edema. [facility] Disclaimer: The information contained in this section may have been updated after the patient was seen, as this information can be updated by other users. Medical History (Updated 08/29/24 @ 12:57 by Kelsey Skinner APRN) Leukocytosis Cystic-bullous disease of lung Abnormal electrocardiogram [ECG] [EKG] Coronary artery disease Enlarged prostate Dizziness Angina pectoris Syncope Cystic lung, congenital History of pneumothorax Atrial fibrillation and flutter Presence of stent in LAD coronary artery Pericardial effusion without cardiac tamponade PNA (pneumonia) Diabetes GERD (gastroesophageal reflux disease) Pericarditis Angina at rest History of heart attack Hyperlipidemia Palpitations Hypertension Heart murmur Arrhythmia History of left heart catheterization (LHC) RBBB (right bundle branch block with left anterior fascicular block) Surgical History Hx of heart artery stent Previous back surgery Family History Family history of stroke Family history of hypertension Family history of COPD (chronic obstructive pulmonary disease) Family history of myocardial infarction Lung cancer Family history of hyperlipidemia Social History Smoking Status: Former smoker tobacco type: cigarettes packs per day: 1 alcohol intake: former current occupational status: previously employed and disabled Travel in the last 8 weeks?: None Have you lived/traveled outside US in past 30 days?: No Contact w/someone who lives/traveled outside US past 30 days?: No Exposure to someone with infectious disease in past 14 days?: No Do you have a fever (greater than 100.4 F or 38 C)?: No Have you tested positive for COVID-19?: No Exposed to someone with COVID-19 in past 14 days?: No Do you have a sore throat?: No Do you have a cough?: No Do you have any weakness?: No Do you have any diarrhea?: No Are you experiencing any unusual bleeding?: No Do you have any muscle aches/pain?: No Do you have any abdominal pain?: No Are you experiencing loss of taste or smell?: No Review of Systems Review of Systems Review of systems:: pertinent systems reviewed and negative unless documented below Constitutional Constitutional: Reports system reviewed and no additional complaints, except as documented, Reports fatigue and Reports lethargy Eyes Eyes: Reports system reviewed and no additional complaints, except as documented ENT Ears, Nose, Mouth, and Throat: Reports system reviewed and no additional complaints, except as documented *Cardiovascular Cardiovascular: Reports system reviewed and no additional complaints, except as documented, Reports chest pain, Reports chest pain at rest, Reports chest pain with activity, Reports diaphoresis, Reports dyspnea and Reports dyspnea on exertion *Respiratory Respiratory: Reports system reviewed and no additional complaints, except as documented, Reports dyspnea and Reports dyspnea on exertion *Gastrointestinal Gastrointestinal: Reports system reviewed and no additional complaints, except as documented *Genitourinary Genitourinary: Reports system reviewed and no additional complaints, except as documented *Musculoskeletal Musculoskeletal: Reports system reviewed and no additional complaints, except as documented Integumentary/Breasts Skin/Breast: Reports system reviewed and no additional complaints, except as documented *Neurologic Neurologic: Reports system reviewed and no additional complaints, except as documented Psychiatric Psychiatric: Reports system reviewed and no additional complaints, except as documented Endocrine Endocrine: Reports system reviewed and no additional complaints, except as documented and Reports fatigue Hematologic/Lymphatic Hematologic/Lymphatic: Reports system reviewed and no additional complaints, except as documented Allergic/Immunologic Allergic/Immunologic: Reports system reviewed and no additional complaints, except as documented Exam Data for Last 24 hours Vital signs and Labs for Last 24 Hours: Temp Pulse Resp BP Pulse Ox O2 Del Method O2 Flow Rate 98.6 F 68 15 104/59 L 96 Room Air 4 08/29/24 12:00 08/29/24 12:00 08/29/24 12:00 08/29/24 12:00 08/29/24 12:00 08/29/24 12:00 08/29/24 11:30 Laboratory Results - last 24 hr 08/28/24 14:40: WBC 11.8 H, RBC 4.90, Hgb 15.3, Hct 44.0, MCV 89.8, MCH 31.2, MCHC 34.8, RDW 12.5, Plt Count 226, MPV 10.7 H, Neut % (Auto) 31.0 L, Lymph % (Auto) 60.1 H, [place] % (Auto) 5.9, Eos % (Auto) 2.1, Baso % (Auto) 0.6, Neut # (Auto) 3.7, Lymph # (Auto) 7.1 H, [place] # (Auto) 0.7, Eos # (Auto) 0.3, Baso # (Auto) 0.1, Total Counted 100, Neutrophils % (Manual) 25 L, Lymphocytes % (Manual) 59 H, Monocytes % (Manual) 14 H, Eosinophils % (Manual) 1, Basophils % (Manual) 1.0, Platelet Estimate Normal, Giant Platelets 1+, RBC Morphology Normal, PT 11.2, INR 1.01, APTT 35.8 H, D-Dimer 1.43 H, Sodium 135 L, Potassium 4.4, Chloride 103, Carbon Dioxide 25, Anion Gap 11.4, BUN 13, Creatinine 0.70 D , Estimated Creat Clear 98, Estimated GFR 113, Est GFR ( Amer) 137 D, Glucose 177 H, Hemoglobin A1c 7.2 H, Calcium 9.1, Magnesium 1.5 L, Total Bilirubin 0.9, AST 54, ALT 38, Alkaline Phosphatase 66, Troponin I 0.05 H, NT-Pro-B Natriuret Pep 122, Total Protein 7.2, Albumin 4.4, Globulin 2.8, Albumin/Globulin Ratio 1.6, Lipase 88 08/28/24 18:18: Troponin I 0.07 H 08/28/24 19:51: POC Glucose 373 H* 08/28/24 21:34: Troponin I 0.06 H 08/29/24 04:04: POC Glucose 241 H 08/29/24 05:04: WBC 12.9 H, RBC 4.36 L, Hgb 13.6 L D, Hct 38.4 L, MCV 88.1, MCH 31.0, MCHC 35.2, RDW 12.1, Plt Count 226, MPV 10.8 H, Neut % (Auto) 67.8, Lymph % (Auto) 21.5, [place] % (Auto) 10.0 H, Eos % (Auto) 0.1, Baso % (Auto) 0.2, Neut # (Auto) 8.8 H, Lymph # (Auto) 2.8, [place] # (Auto) 1.3 H, Eos # (Auto) 0.0, Baso # (Auto) 0.0, Sodium 135 L, Potassium 4.4, Chloride 104, Carbon Dioxide 24, Anion Gap 11.4, BUN 11, Creatinine 0.80, Estimated Creat Clear 101, Estimated GFR 97, Est GFR ( Amer) 117, Glucose 243 H D, Calcium 8.8, Magnesium 1.4 L, Total Bilirubin 0.9, AST 44, ALT 35, Alkaline Phosphatase 71, Total Protein 6.3, Albumin 3.9 D, Globulin 2.4, Albumin/Globulin Ratio 1.6 08/29/24 05:45: POC Glucose 237 H 08/29/24 11:04: POC Glucose 213 H I & O for Last 24 hours: Intake & Output 08/26/24 08/27/24 08/28/24 08/29/24 23:59 23:59 23:59 23:59 Intake Total 358.155 / 177.037 4886.367 / 1301.367 Output Total 1400 / 1650 2250 / 2250 Balance -1041.845 / -1291.845 -948.633 / -948.633 Weight 210 lb 215 lb 9.793 oz Constitutional Constitutional: no acute distress and average body habitus *Routine HEENT Exam Head: Present normocephalic and atraumatic ENT: Present mucous membranes moist *Routine Neck Exam Neck: Present supple, full ROM and normal carotid upstroke; Absent JVD, carotid bruit or lymphadenopathy *Routine Respiratory Exam Respiratory: Present CTA bilaterally, normal respiratory effort, able to speak in complete sentences and symmetric chest movement *Routine Cardiovascular Exam Cardiovascular: Present RRR, Normal S1 and Normal S2; Absent murmur or gallop *Routine Abdominal Exam Abdominal: Present soft and normoactive bowel sounds; Absent tenderness, distended or organomegaly *Routine Extremities Exam Extremities: Present full ROM, pulses intact and normal capillary refill; Absent cyanosis, clubbing or edema *Routine Skin Exam Skin: Present intact and warm; Absent erythema *Routine Neurological Exam Neurological: Present alert, oriented X3 and CN II-XII intact; Absent sensory deficit or motor deficit Routine Psychiatric Exam Psychiatric: Present normal affect Meds Home Medications and Allergies Home Medications ?Medication ?Instructions ?Recorded ?Confirmed ?Type blood sugar diagnostic (Accu-Chek 01/17/24 08/29/24 H istory Guide test strips) lancets (Accu-Chek Softclix 01/17/24 08/29/24 History Lancets) ranolazine 500 mg tablet,extended 500 mg PO BID 30 day s #60 tabs 01/17/24 08/29/24 Rx release,12 hr duloxetine 30 mg capsule,delayed 30 mg PO DAILY 08/29/24 History release midodrine 5 mg tablet 5 mg PO DAILY 05/17/2408/29 History nitroglycerin 0.4 mg sublingual 0.4 mg sublingual Q5MI [employer]PER[employer]ENDENT PRN Chest 05/17/24 08/29/24 History tablet Pain pregabalin 25 mg capsule 25 mg PO BID 05/17/24 History rosuvastatin 40 mg tablet 40 mg PO HS 05/17/24 5 History tamsulosin 0.4 mg capsule 0.4 mg PO HS 30 days #30 cap s 05/18/24 08/29/24 Rx omeprazole 40 mg capsule,delayed 40 mg PO DAILY #30 ca ps 06/26/24 08/29/24 Rx release blood-glucose sensor (Dexcom G7 #1 ea 08/02/24 5 History Sensor device) metoprolol succinate 50 mg 50 mg PO DAILY #30 tabs 08/29/24 Rx tablet,extended release 24 hr (Toprol XL) glipizide 10 mg tablet 10 mg PO DAILY 08/24/2408/08 History aspirin 81 mg capsule 81 mg PO DAILY 30 days #30 c aps 08/28/24 08/29/24 Rx isosorbide mononitrate 30 mg 30 mg PO DAILY 30 days #3 0 tabs 08/28/24 08/29/24 Rx tablet,extended release 24 hr prasugrel HCl 10 mg tablet 10 mg PO DAILY 30 days #30 tabs 08/28/24 08/29/24 Rx (Effient) New Prescriptions to Start Prescriptions: Allergies Allergy/AdvReac Type Severity Reaction Status Date / Time bee venom protein (honey bee) Allergy Anaphylaxis Verified 08/24/24 11:30 gabapentin Allergy Anaphylaxis Verified 08/24/24 11:30 insect venom Allergy Anaphylaxis Verified 08/28/24 18:47 Assessment and Plan *Assessment and plan (1) Leukocytosis: Status: Acute Qualifiers: Leukocytosis type: unspecified Qualified Code(s): D72.829 - Elevated white blood cell count, unspecified Category: Medical Code(s): D72.829 - Elevated white blood cell count, unspecified (2) Chest pain: Status: Acute Qualifiers: Chest pain type: other chest pain Qualified Code(s): R07.89 - Other chest pain Category: Medical Code(s): R07.9 - Chest pain, unspecified (3) Breath shortness: Status: Acute Category: Medical Code(s): R06.02 - Shortness of breath (4) Shock: Status: Acute Category: Medical Code(s): R57.9 - Shock, unspecified (5) Coronary artery disease: Status: Acute Qualifiers: Coronary Disease-Associated Artery/Lesion type: [place] artery [place] vs. transplanted heart: [place] heart Associated angina: with other forms of angina Qualified Code(s): I25.118 - Atherosclerotic heart disease of [place] coronary artery with other forms of angina pectoris Category: Medical Code(s): I25.10 - Atherosclerotic heart disease of [place] coronary artery without angina pectoris (6) Hyperlipidemia: Status: Chronic Qualifiers: Hyperlipidemia type: mixed hyperlipidemia Qualified Code(s): E78.2 - Mixed hyperlipidemia Category: Medical Code(s): E78.5 - Hyperlipidemia, unspecified (7) Hypertension: Status: Chronic Qualifiers: Hypertension type: primary hypertension Qualified Code(s): I10 - Essential (primary) hypertension Category: Medical Code(s): I10 - Essential (primary) hypertension (8) Presence of stent in LAD coronary artery: Status: Chronic Category: Medical Code(s): Z95.5 - Presence of coronary angioplasty implant and graft (9) Tobacco use: Status: Chronic Category: Social Hx Code(s): Z72.0 - Tobacco use (10) Fatigue: Status: Acute Qualifiers: Fatigue type: other Qualified Code(s): R53.83 - Other fatigue Category: Medical Code(s): R53.83 - Other fatigue Plan Plan: 1. The patient was admitted to the hospital following left cardiac catheterization due to severe chest pain. The patient was started on a nitroglycerin drip yesterday because of his chest pain but hide hypotensive and had to be placed on a dopamine drip for blood pressure support. This morning he states that he still has stinging in his chest and does not feel well. Will convert him over to Isordil 10 mg 3 times daily and stop the nitroglycerin drip. 2. The patient did not have a significant elevation in his troponin so this likely rules out any stent thrombosis. There is no evidence of a dissection or effusion to explain this hypotension. His symptoms are likely not cardiac in nature, suspect sepsis. 3. Once the nitroglycerin drip has been stopped we can stop the dopamine drip as well. 4. The patient's white blood cell count was elevated prior to proceeding with left cardiac catheterization. Highly concerned with bacteremia/sepsis. Will obtain blood cultures and a urinalysis to rule out infection. 5. Will repeat a chest x-ray to make sure he does not have pneumonia. 6. Repeat a full echocardiogram to evaluate the patient's aortic valve and rule out an effusion/tamponade. 7. CTA of the chest ruled out dissection. 8. His blood pressure is well-controlled at this time. He is being maintained on a dopamine drip. Once the nitroglycerin drip is stopped we will also stop t he dopamine drip. Once his blood pressure stable then we will resume cardiac medications for coronary artery disease. 9. His LDL goal is less than 55. His LDL is 71. He is on a statin. 10. Increase Ranexa to 1000 mg p.o. twice daily for angina. 11. Continue PPI. 12. Further recommendations will be made pending the patient's response to treatment. Thank you for the opportunity to help participate in the care of this patient. All recommendations and orders are per Dr. Conklin.
--- NOTE | 2024-08-29 13:06 | HMH.PHAINT1 ---
Pharmacy Intervention Comments: home medication list verified using list from outpatient pharmacy and pt interview
[2024-08-29] MEDS: MORPHINE 2MG/ML SYRINGE 2 MG IV (15:11)
--- NOTE | 2024-08-29 16:35 | EXP.PN ---
Subjective *Date: 08/29/24 *Time: 16:35 Interval history: seen at bedside, denied Chest pain, SOB, nausea, vomiting, lying in bed comfortably Exam Data for Last 24 hours Vital signs and Labs for Last 24 Hours: Temp Pulse Resp BP Pulse Ox O2 Del Method O2 Flow Rate 98.6 F 65 21 97/55 L 96 Nasal Cannula 4 08/29/24 12:00 08/29/24 15:30 08/29/24 15:30 08/29/24 15:30 08/29/24 15:30 08/29/24 15:30 08/29/24 15:30 Laboratory Results - last 24 hr 08/28/24 14:40: Hemoglobin A1c 7.2 H 08/28/24 18:18: Troponin I 0.07 H 08/28/24 19:51: POC Glucose 373 H* 08/28/24 21:34: Troponin I 0.06 H 08/29/24 04:04: POC Glucose 241 H 08/29/24 05:04: WBC 12.9 H, RBC 4.36 L, Hgb 13.6 L D, Hct 38.4 L, MCV 88.1, MCH 31.0, MCHC 35.2, RDW 12.1, Plt Count 226, MPV 10.8 H, Neut % (Auto) 67.8, Lymph % (Auto) 21.5, [place] % (Auto) 10.0 H, Eos % (Auto) 0.1, Baso % (Auto) 0.2, Neut # (Auto) 8.8 H, Lymph # (Auto) 2.8, [place] # (Auto) 1.3 H, Eos # (Auto) 0.0, Baso # (Auto) 0.0, Sodium 135 L, Potassium 4.4, Chloride 104, Carbon Dioxide 24, Anion Gap 11.4, BUN 11, Creatinine 0.80, Estimated Creat Clear 101, Estimated GFR 97, Est GFR ( Amer) 117, Glucose 243 H D, Calcium 8.8, Magnesium 1.4 L, Total Bilirubin 0.9, AST 44, ALT 35, Alkaline Phosphatase 71, Total Protein 6.3, Albumin 3.9 D, Globulin 2.4, Albumin/Globulin Ratio 1.6 08/29/24 05:45: POC Glucose 237 H 08/29/24 11:04: POC Glucose 213 H 08/29/24 11:55: Urine Color Yellow, Urine Appearance Clear, Urine pH 6.0, Ur Specific [place] <= 1.005, Urine Protein Negative, Urine Glucose (UA) Trace, Urine Ketones Negative, Urine Blood Negative, Urine Nitrate Negative, Urine Bilirubin Negative, Urine Urobilinogen 0.2, Ur Leukocyte Esterase Negative, Urine RBC None, Urine WBC None, Ur Squamous Epith Cells None I & O for Last 24 hours: Intake & Output 08/26/24 08/27/24 08/28/24 08/29/24 23:59 23:59 23:59 23:59 Intake Total 358.155 / 677.996 4640.564 / 1337.564 Output Total 1400 / 1650 2250 / 2250 Balance -1041.845 / -1291.845 -912.436 / -912.436 Weight 95.254 kg 97.8 kg Constitutional Constitutional: no acute distress *Routine HEENT Exam Head: Present normocephalic Eye: Present EOMI and PERRL ENT: Present mucous membranes moist *Routine Neck Exam Neck: Present supple; Absent lymphadenopathy *Routine Respiratory Exam Respiratory: Present CTA bilaterally *Routine Cardiovascular Exam Cardiovascular: Present RRR *Routine Abdominal Exam Abdominal: Present soft and normoactive bowel sounds; Absent tenderness *Routine Extremities Exam Extremities: Absent cyanosis, clubbing or edema *Routine Skin Exam Skin: Present warm; Absent rash *Routine Neurological Exam Neurological: Present alert and oriented X3 Assessment and Plan *Assessment and plan (1) Shock: Status: Acute Category: Medical Code(s): R57.9 - Shock, unspecified (2) Coronary artery disease with unstable angina pectoris: Status: Acute Qualifiers: Coronary Disease-Associated Artery/Lesion type: [place] artery [place] vs. transplanted heart: [place] heart Qualified Code(s): I25.110 - Atherosclerotic heart disease of [place] coronary artery with unstable angina pectoris Category: Medical Code(s): I25.110 - Atherosclerotic heart disease of [place] coronary artery with unstable angina pectoris (3) Tobacco use: Status: Chronic Category: Social Hx Code(s): Z72.0 - Tobacco use (4) RBBB (right bundle branch block with left anterior fascicular block): Status: Acute Category: Medical Code(s): I45.2 - Bifascicular block (5) Diabetes: Status: Chronic Qualifiers: Diabetes mellitus type: type 2 Diabetes mellitus nursing home insulin use: without nursing home use Diabetes mellitus complication status: without complication Qualified Code(s): E11.9 - Type 2 diabetes mellitus without complications Category: Medical Code(s): E11.9 - Type 2 diabetes mellitus without complications (6) Hypertension: Status: Chronic Qualifiers: Hypertension type: primary hypertension Qualified Code(s): I10 - Essential (primary) hypertension Category: Medical Code(s): I10 - Essential (primary) hypertension (7) Hyperlipidemia: Status: Chronic Qualifiers: Hyperlipidemia type: mixed hyperlipidemia Qualified Code(s): E78.2 - Mixed hyperlipidemia Category: Medical Code(s): E78.5 - Hyperlipidemia, unspecified (8) Presence of stent in LAD coronary artery: Status: Chronic Category: Medical Code(s): Z95.5 - Presence of coronary angioplasty implant and graft Plan 64-year-old male with history of microvascular coronary artery disease. Presented for elective left heart cath today, received 3 stents. Upon arrival home developed onset of crushing chest pain. Unstable angina Chest pain Hypotension/shock CAD status post left heart cath wean down IV nitro drip discussed with cardiology Echo obtained in the ER, reviewed results showing EF 70%. - Chest CTA negative for PE or dissection. Per my review has bolus emphysematous findings. -Holding beta-blockers -Will administer 1 dose glucagon IV 1 mg to counteract beta-blockade - Due to placement of stents, resume prasugrel 10 mg daily and aspirin 81 mg daily. - Resume ranolazine 500 mg p.o. twice daily, Crestor 40 mg nightly A-fib - On metoprolol succinate 50 mg daily at home. Rate controlled. Blood pressure soft however; we will therefore hold beta-demetri at this time. - [id number] score of 4 (hypertension, diabetes, vascular disease, age). - Recommend Eliquis 5 mg twice daily but previously had pericardial effusion while on anticoagulation Diabetes mellitus - Recent hemoglobin A1c 6.7 in May, repeat ordered and pending. - SSI with FSGS achs Hyperlipidemia: LDL 139 in January 2024; continue Crestor 40 mg nightly Cardiac diet, n.p.o. at midnight Heparin 5,000 U TID Full code DC planning - dc in 2-3 days
[2024-08-29 16:56] LABS: POC Glucose,Bedside 147 (70-110)
[2024-08-29 19:47] LABS: POC Glucose,Bedside 222 (70-110)
[2024-08-29] MEDS: PANTOPRAZOLE 40MG TABLET 40 MG PO (20:55)
[2024-08-29] MEDS: RANOLAZINE 500MG ER TABLET 1000 MG PO (20:55)
[2024-08-29] MEDS: TAMSULOSIN 0.4MG CAPSULE 0.4 MG PO (20:55)
[2024-08-29] MEDS: ATORVASTATIN 40MG TABLET 40 MG PO (20:57)
[2024-08-30] VITALS (18 sets, daily range): BP systolic 89–149; BP diastolic 43–104; PULSE 50–80; RESP 14–25; TEMP 36.6–37; O2SAT 82–98; BMI 29.2
[2024-08-30] MEDS: MORPHINE 2MG/ML SYRINGE 2 MG IV ×3 (00:19→15:11)
--- NOTE | 2024-08-30 02:10 | PC.NURSE ---
pt called out complaining of increasing chest pain described as stinging . pt rated it a 8/10. Pt stated that the stinging sensation was radiating down his left arm. No shortness of breath stated by pt. EKG obtained, notified. See MAR for new orders.
--- NOTE | 2024-08-30 02:11 | ECG_ITS ---
APPROVED REPORT Exam: Resting ECG HR:65 bpm ECG Measurements Heart Rate 65 AXES WI 176 P 89 QRSd 148 QRS -50 QT 455 T -9 QTc 467 Conclusion SINUS RHYTHM WITH OCCASIONAL SUPRAVENTRICULAR PREMATURE COMPLEXES LEFT AXIS DEVIATION [QRS AXIS < -30] INTRAVENTRICULAR CONDUCTION DELAY [130+ ms QRS DURATION] SEPTAL MYOCARDIAL INFARCTION , PROBABLY OLD [40+ ms Q WAVE IN V1/V2] ABNORMAL ECG UNCONFIRMED REPORT Electronically signed by : Ever Romero MD 08/31/2024 07:55:28
[2024-08-30] MEDS: ISOSORBIDE DINITRATE 10 MG TABLET PO ×3 (02:35→13:40)
[2024-08-30 05:33] LABS: POC Glucose,Bedside 253 (70-110)
[2024-08-30 06:07] LABS: Blood Urea Nitrogen 12 mg/dl (9-20); Calcium 8.9 mg/dl (8.4-10.2); Carbon Dioxide 25 mmol/L (22.0-30.0); Chloride 105 mmol/L (98-107); Creatinine Clearance Estimated 101 mL/min (50-200); Creatinine,Serum 0.80 mg/dl (0.66-1.25); Estimated Glomerular Filt Rate 97 ml/min (>60); GFR (African American) 117 ML/MIN (>60); Glucose 143 mg/dl (74-100); Hematocrit 35.1 % (42.0-52.0); Hemoglobin 12.3 g/dL (14.1-18.0); Immature Granulocytes % 0.1 %; Mean Corpuscular HGB Conc 35.0 g/dL (31.8-35.4); Mean Corpuscular Hemoglobin 31.2 pg (27.0-31.2); Mean Corpuscular Volume 89.1 fl (80-94); Nucleated Red Blood Cells % 0 %; Platelet Count 165 K/mm3 (142-424); Red Blood Count 3.94 M/mm3 (4.60-6.20); Red Cell Distribution Width-SD 40.8 fL; Sodium 136 mmol/L (136-145); White Blood Count 8.0 K/mm3 (4.8-10.8)
[2024-08-30 06:30] LABS: Anion Gap 10.2 mEq/L (5-15); Potassium 4.2 mmoL/L (3.5-5.1)
[2024-08-30] MEDS: humaLOG 100 UNITS/ML 10ML VIAL (SSI) SUBCUT (07:27)
[2024-08-30] MEDS: ASPIRIN EC 81MG TABLET 81 MG PO (08:33)
[2024-08-30] MEDS: RANOLAZINE 500MG ER TABLET 1000 MG PO (08:33)
[2024-08-30] MEDS: SODIUM CHLORIDE 0.9% 10ML VIAL 8 ML IV (08:33)
[2024-08-30] MEDS: PRASUGREL 10MG TAB 10 MG PO (08:33)
[2024-08-30] MEDS: PREGABALIN 25MG CAPSULE 25 MG PO (08:34)
[2024-08-30] MEDS: FAMOTIDINE 20MG TABLET 20 MG PO (08:41)
[2024-08-30 11:11] LABS: POC Glucose,Bedside 119 (70-110)
--- NOTE | 2024-08-30 14:57 | P.PN_ITS ---
Subjective Subjective Date: 08/30/24 Time: 09:30 Principal diagnosis: Chest pain/arteritis Interval history: This is a 64-year-old white gentleman who presented to the emergency department following left cardiac catheterization. The patient had previously had 2 stents placed to the LAD and 1 stent placed to the ramus. He tolerated the procedure well and was discharged from the hospital and sent home in stable condition. He came back to the hospital hypotensive which was most likely from the isosorbide that was given to him prior to leaving the hospital. He was also having chest pain. This is most likely from arteritis. His white count was elevated so there was concern for sepsis, which has been ruled out and his white count is normal today. He states that he is still having a twinge in his chest intermittently but this is better. His shortness of breath has resolved. He denies any fever, chills, nausea, vomiting, diarrhea, PND orthopnea. Exam Data for Last 24 hours Vital signs and Labs for Last 24 Hours: Temp Pulse Resp BP Pulse Ox O2 Del Method O2 Flow Rate 97.9 F 64 20 122/72 95 Room Air 4 08/30/24 12:00 08/30/24 12:00 08/30/24 12:00 08/30/24 12:00 08/30/24 12:00 08/30/24 13:00 08/30/24 09:00 Laboratory Results - last 24 hr 08/29/24 05:04: Cortisol 13.1 08/29/24 11:55: Urine RBC None, Urine WBC None, Ur Squamous Epith Cells None 08/29/24 16:50: POC Glucose 147 H 08/29/24 19:40: POC Glucose 222 H 08/30/24 04:31: WBC 8.0 D, RBC 3.94 L, Hgb 12.3 L, Hct 35.1 L, MCV 89.1, MCH 31.2, MCHC 35.0, RDW 12.4, Plt Count 165 D, MPV 10.9 H, Neut % (Auto) 39.5, Lymph % (Auto) 48.4, [place] % (Auto) 9.1, Eos % (Auto) 2.5, Baso % (Auto) 0.4, Neut # (Auto) 3.1, Lymph # (Auto) 3.9, [place] # (Auto) 0.7, Eos # (Auto) 0.2, Baso # (Auto) 0.0, Sodium 136, Potassium 4.2, Chloride 105, Carbon Dioxide 25, Anion Gap 10.2, BUN 12, Creatinine 0.80, Estimated Creat Clear 101, Estimated GFR 97, Est GFR ( Amer) 117, Glucose 143 H D, Calcium 8.9 08/30/24 05:26: POC Glucose 253 H 08/30/24 11:04: POC Glucose 119 H I & O for Last 24 hours: Intake & Output 08/27/24 08/28/24 08/29/24 08/30/24 23:59 23:59 23:59 23:59 Intake Total 358.155 / 340.627 1037.564 / 5464.373 6664 / 1030 Output Total 1400 / 1650 2900 / 3050 1600 / 1600 Balance -1041.845 / -1291.845 -1082.436 / -1232.436 -570 / -570 Weight 210 lb 215 lb 9.793 oz 215 lb 13.321 oz Microbiology Reports for the Last 24 Hours: Microbiology 08/29/24 09:44 Blood Blood Culture - Preliminary NO GROWTH AFTER 24 HOURS 08/29/24 09:51 Blood Blood Culture - Preliminary NO GROWTH AFTER 24 HOURS Constitutional Constitutional: no acute distress and average body habitus *Routine HEENT Exam Head: Present normocephalic and atraumatic ENT: Present mucous membranes moist *Routine Neck Exam Neck: Present supple, full ROM and normal carotid upstroke; Absent JVD, carotid bruit or lymphadenopathy *Routine Respiratory Exam Respiratory: Present CTA bilaterally, normal respiratory effort, able to speak in complete sentences and symmetric chest movement *Routine Cardiovascular Exam Cardiovascular: Present RRR, Normal S1 and Normal S2; Absent murmur or gallop *Routine Abdominal Exam Abdominal: Present soft and normoactive bowel sounds; Absent tenderness, distended or organomegaly *Routine Extremities Exam Extremities: Present full ROM, pulses intact and normal capillary refill; Absent cyanosis, clubbing or edema *Routine Skin Exam Skin: Present intact and warm; Absent erythema *Routine Neurological Exam Neurological: Present alert, oriented X3 and CN II-XII intact; Absent sensory deficit or motor deficit Routine Psychiatric Exam Psychiatric: Present normal affect Progress Note: A&P Assessment and plan (1) Angina pectoris: Status: Acute (2) Coronary arteritis: Status: Acute (3) Coronary artery disease: Status: Acute (4) Tobacco use: Status: Chronic (5) RBBB (right bundle branch block with left anterior fascicular block): Status: Acute (6) Diabetes: Status: Chronic (7) Hypertension: Status: Chronic (8) Hyperlipidemia: Status: Chronic (9) Presence of stent in LAD coronary artery: Status: Chronic (10) Breath shortness: Status: Acute Assessment and Plan Assessment and Plan for All Diagnoses:: Plan: 1. The patient was admitted to the hospital following left cardiac catheterization due to severe chest pain. The patient was initially started on a nitroglycerin drip and became hypotensive so had to start a dopamine drip. Both the nitroglycerin and dopamine drips were discontinued yesterday. He has been started on Isordil 10 mg 3 times daily for the chest pain. He states that this has helped with his chest pain some and his chest pain is better today. 2. The patient's white blood cell count was elevated prior to proceeding with left cardiac catheterization. We were concerned for bacteremia and sepsis. Workup came back negative and white count is now normal today. 3. Echocardiogram shows a normal ejection fraction and no significant valve disease. 4. His blood pressure is well-controlled today. 5. Coronary artery disease is likely stable. He has arteritis. He has been started on Isordil and his Ranexa has been increased. 6. His LDL goal is less than 55. His LDL is 71. He is on a statin. 7. Continue PPI. 8. No further recommendations at this time from a cardiac standpoint. The patient can follow-up in cardiology clinic next week. The patient will need to be discharged on the following cardiac medications: Aspirin 81 mg daily Lipitor 40 mg p.o. nightly Isordil 10 mg 3 times daily Protonix 40 mg daily Effient 10 mg daily Ranexa 1000 mg twice daily Thank you for the opportunity to help participate in the care of this patient. All recommendations and orders are per Dr. Conklin.
--- NOTE | 2024-08-30 16:03 | EXP.DC.SUM ---
General Admission date:: 08/28/24 Discharge date: 08/30/24 HPI HPI HPI: Mr. Carranza is a 64-year-old male who initially presented to [facility] for elective heart cath today. Received 3 cardiac stents earlier this morning. 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 During heart cath he had some soft blood pressures but ultimately was discharged home in stable condition. After getting home developed onset of severe crushing chest pain. Was diaphoretic and fatigued. Presented to the ER due to his symptoms. Found to be hypotensive and bradycardic. Initial troponin undetectable at 0.05. No ST elevations on EKG. Patient placed on nitroglycerin drip and dopamine drip. Improved heart rate with dose of atropine. Cardiology consulted and requested admission for monitoring overnight. Medicine consulted for further management. Labs obtained showing white count of 11.8. Hemoglobin 15. Kidney function normal BUN 13, creatinine 0.7. TSH normal on recent labs at 0.78 formal echo obtained in the ED with a EF of 70%. Initiated on IV fluids. Received 2 L total while in the ER due to hypotension. On evaluation after initiation of consultation, patient appears pale. Is alert and oriented but slow to respond to questions. On 2 L oxygen for comfort. Heart rate in the 70s. Systolics in the 90s. Denies nausea or vomiting. States he feels subjectively short of breath. Chest pain improved but has crushing headache Hospital Course Hospital Course Hospital Course: 4-year-old male with history of microvascular coronary artery disease. Presented for elective left heart cath today, received 3 stents. Upon arrival home developed onset of crushing chest pain. Unstable angina s/p cardiac cath Chest pain - resolved Hypotension/shock - resolved CAD status post left heart cath Echo obtained in the ER, reviewed results showing EF 70%. - Chest CTA negative for PE or dissection. Per my review has bolus emphysematous findings. A-fib rate- controlled Patient was seen and evaluated by cardiology, had cardiac cath, No further recommendations at this time from a cardiac standpoint. The patient can follow-up in cardiology clinic next week. The patient will need to be discharged on the following cardiac medications: Aspirin 81 mg daily Lipitor 40 mg p.o. nightly Isordil 10 mg 3 times daily Protonix 40 mg daily Effient 10 mg daily Ranexa 1000 mg twice daily Exam Data for Last 24 hours Vital signs and Labs for Last 24 Hours: Temp Pulse Resp BP Pulse Ox O2 Del Method O2 Flow Rate 97.9 F 64 20 122/72 95 Room Air 4 08/30/24 12:00 08/30/24 12:00 08/30/24 12:00 08/30/24 12:00 08/30/24 12:00 08/30/24 15:37 08/30/24 09:00 Laboratory Results - last 24 hr 08/29/24 05:04: Cortisol 13.1 08/29/24 16:50: POC Glucose 147 H 08/29/24 19:40: POC Glucose 222 H 08/30/24 04:31: WBC 8.0 D, RBC 3.94 L, Hgb 12.3 L, Hct 35.1 L, MCV 89.1, MCH 31.2, MCHC 35.0, RDW 12.4, Plt Count 165 D, MPV 10.9 H, Neut % (Auto) 39.5, Lymph % (Auto) 48.4, [place] % (Auto) 9.1, Eos % (Auto) 2.5, Baso % (Auto) 0.4, Neut # (Auto) 3.1, Lymph # (Auto) 3.9, [place] # (Auto) 0.7, Eos # (Auto) 0.2, Baso # (Auto) 0.0, Sodium 136, Potassium 4.2, Chloride 105, Carbon Dioxide 25, Anion Gap 10.2, BUN 12, Creatinine 0.80, Estimated Creat Clear 101, Estimated GFR 97, Est GFR ( Amer) 117, Glucose 143 H D, Calcium 8.9 08/30/24 05:26: POC Glucose 253 H 08/30/24 11:04: POC Glucose 119 H I & O for Last 24 hours: Intake & Output 08/27/24 08/28/24 08/29/24 08/30/24 23:59 23:59 23:59 23:59 Intake Total 358.155 / 863.011 7537.564 / 3361.088 6375 / 1030 Output Total 1400 / 1650 2900 / 3050 1875 / 1875 Balance -1041.845 / -1291.845 -1082.436 / -1232.436 -845 / -845 Weight 95.254 kg 97.8 kg 97.9 kg Microbiology Reports for the Last 24 Hours: Microbiology 08/29/24 09:44 Blood Blood Culture - Preliminary NO GROWTH AFTER 24 HOURS 08/29/24 09:51 Blood Blood Culture - Preliminary NO GROWTH AFTER 24 HOURS Constitutional Constitutional: no acute distress *Routine HEENT Exam Head: Present normocephalic Eye: Present EOMI and PERRL ENT: Present mucous membranes moist *Routine Neck Exam Neck: Present supple; Absent lymphadenopathy *Routine Respiratory Exam Respiratory: Present CTA bilaterally *Routine Cardiovascular Exam Cardiovascular: Present RRR *Routine Abdominal Exam Abdominal: Present soft and normoactive bowel sounds; Absent tenderness *Routine Extremities Exam Extremities: Absent cyanosis, clubbing or edema *Routine Skin Exam Skin: Present warm; Absent rash *Routine Neurological Exam Neurological: Present alert and oriented X3 Results Data Completed and Pending Labs on day of discharge: Labs from last 24 hours 08/30/24 08/30/24 08/30/24 11:04 05:26 04:31 WBC 8.0 D RBC 3.94 L Hgb 12.3 L Hct 35.1 L MCV 89.1 MCH 31.2 MCHC 35.0 RDW 12.4 Plt Count 165 D MPV 10.9 H Neut % (Auto) 39.5 Lymph % (Auto) 48.4 [place] % (Auto) 9.1 Eos % (Auto) 2.5 Baso % (Auto) 0.4 Neut # (Auto) 3.1 Lymph # (Auto) 3.9 [place] # (Auto) 0.7 Eos # (Auto) 0.2 Baso # (Auto) 0.0 Sodium 136 Potassium 4.2 Chloride 105 Carbon Dioxide 25 Anion Gap 10.2 BUN 12 Creatinine 0.80 Estimated Creat Clear 101 Estimated GFR 97 Est GFR ( Amer) 117 Glucose 143 H D POC Glucose 119 H 253 H Calcium 8.9 Cortisol 08/29/24 08/29/24 08/29/24 19:40 16:50 05:04 WBC RBC Hgb Hct MCV MCH MCHC RDW Plt Count MPV Neut % (Auto) Lymph % (Auto) [place] % (Auto) Eos % (Auto) Baso % (Auto) Neut # (Auto) Lymph # (Auto) [place] # (Auto) Eos # (Auto) Baso # (Auto) Sodium Potassium Chloride Carbon Dioxide Anion Gap BUN Creatinine Estimated Creat Clear Estimated GFR Est GFR ( Amer) Glucose POC Glucose 222 H 147 H Calcium Cortisol 13.1 Preliminary micro results at discharge 08/29/24 09:44 Blood Culture - Preliminary Blood NO GROWTH AFTER 24 HOURS 08/29/24 09:51 Blood Culture - Preliminary Blood NO GROWTH AFTER 24 HOURS DS: Diagnosis Discharge Diagnosis (1) Angina pectoris: Status: Acute Code(s): I20.9 - Angina pectoris, unspecified (2) Coronary arteritis: Status: Acute Code(s): I25.89 - Other forms of chronic ischemic heart disease (3) Coronary artery disease: Status: Acute Code(s): I25.10 - Atherosclerotic heart disease of [place] coronary artery without angina pectoris Qualifiers: Associated angina: with other forms of angina Coronary Disease-Associated Artery/Lesion type: [place] artery [place] vs. transplanted heart: [place] heart Qualified Code(s): I25.118 - Atherosclerotic heart disease of [place] coronary artery with other forms of angina pectoris (4) Tobacco use: Status: Chronic Code(s): Z72.0 - Tobacco use (5) RBBB (right bundle branch block with left anterior fascicular block): Status: Acute Code(s): I45.2 - Bifascicular block (6) Diabetes: Status: Chronic Code(s): E11.9 - Type 2 diabetes mellitus without complications Qualifiers: Diabetes mellitus complication status: without complication Diabetes mellitus intermediate insulin use: without superintendent container terminal use Diabetes mellitus type: type 2 Qualified Code(s): E11.9 - Type 2 diabetes mellitus without complications (7) Hypertension: Status: Chronic Code(s): I10 - Essential (primary) hypertension Qualifiers: Hypertension type: primary hypertension Qualified Code(s): I10 - Essential (primary) hypertension (8) Hyperlipidemia: Status: Chronic Code(s): E78.5 - Hyperlipidemia, unspecified Qualifiers: Hyperlipidemia type: mixed hyperlipidemia Qualified Code(s): E78.2 - Mixed hyperlipidemia (9) Presence of stent in LAD coronary artery: Status: Chronic Code(s): Z95.5 - Presence of coronary angioplasty implant and graft (10) Breath shortness: Status: Acute Code(s): R06.02 - Shortness of breath Meds Home Medications and Allergies Home Medications ?Medication ?Instructions ?Recorded ?Confirmed ?Type blood sugar diagnostic (Accu-Chek 01/17/24 08/29/24 History Guide test strips) lancets (Accu-Chek Softclix 01/17/24 08/29/24 History Lancets) duloxetine 30 mg capsule,delayed 30 mg PO DAILY 05/17/24 08/29/24 History release midodrine 5 mg tablet 5 mg PO DAILY 05/17/24 08/29/24 History nitroglycerin 0.4 mg sublingual 0.4 mg sublingual Q5MINP PRN Chest 05/17/24 08/29/24 History tablet Pain pregabalin 25 mg capsule 25 mg PO BID 05/17/24 08/29/24 History rosuvastatin 40 mg tablet 40 mg PO HS 05/17/24 08/29/24 History tamsulosin 0.4 mg capsule 0.4 mg PO HS 30 days #30 caps 05/18/24 08/29/24 Rx omeprazole 40 mg capsule,delayed 40 mg PO DAILY #30 caps 06/26/24 08/29/24 Rx release blood-glucose sensor ([place] G7 #1 ea 08/02/24 08/29/24 History Sensor device) metoprolol succinate 50 mg 50 mg PO DAILY #30 tabs 08/22/24 08/29/24 Rx tablet,extended release 24 hr (Toprol XL) glipizide 10 mg tablet 10 mg PO DAILY 08/24/24 08/29/24 History aspirin 81 mg capsule 81 mg PO DAILY 30 days #30 caps 08/28/24 08/29/24 Rx prasugrel HCl 10 mg tablet 10 mg PO DAILY 30 days #30 tabs 08/28/24 08/29/24 Rx (Effient) isosorbide dinitrate 10 mg tablet 10 mg PO TID 30 days #90 tabs 08/30/24 Rx ranolazine 500 mg tablet,extended 1,000 mg (2 x 500 mg) PO BID 30 08/30/24 Rx release,12 hr days #120 tabs New Prescriptions to Start Prescriptions: isosorbide dinitrate Maurice,Irfan ranolazine Maurice,Irfan Allergies Allergy/AdvReac Type Severity Reaction Status Date / Time bee venom protein (honey bee) Allergy Anaphylaxis Verified 08/24/24 11:30 gabapentin Allergy Anaphylaxis Verified 08/24/24 11:30 insect venom Allergy Anaphylaxis Verified 08/28/24 18:47 Discharge Plan Disposition Patient Disposition: Home, Self-Care Condition: Good Discharge Order Discharge Orders: Discharge Order (Routine); Ordered 08/30/24 Ordered By: Roscoe Richards Follow up Plan Follow up with: Kelsey Skinner APRN [Nurse Practitioner, Cardiology] - 09/04/24 1:30 pm Erfem Lauren DO [Primary Care Provider, [facility]] - 09/07/24 10:15 am Referral Note: please bring a photo ID to your appointment. Prescriptions/Medication Reconciliation: New ranolazine 500 mg Tablet Extended Release 12 Hr 1,000 mg PO BID 30 Days Qty: 120 0RF isosorbide dinitrate 10 mg Tablet 10 mg PO TID 30 Days Qty: 90 0RF Continued glipizide 10 mg tablet 10 mg PO DAILY Rx Instructions: pt states if his fsbs is less than 200 at home, he only takes half tablet (DME) Dexcom G7 Sensor Device See Rx Instructions .ROUTE .MEDSUPPLY Qty: 1 Rx Instructions: As directed metoprolol succinate [Toprol XL] 50 mg tablet extended release 24 hr 50 mg PO DAILY Qty: 30 2RF (DME) Accu-Chek Guide test strips Strip MISCELLANEOUS (DME) lancets [Accu-Chek Softclix Lancets] Misc MISCELLANEOUS midodrine 5 mg tablet 5 mg PO DAILY Patient Comments: pt states that he only takes med at bedtime nitroglycerin 0.4 mg tablet, sublingual 0.4 mg sublingual Q5MINP PRN (Reason: Chest Pain) rosuvastatin 40 mg tablet 40 mg PO HS duloxetine 30 mg capsule,delayed release(DR/EC) 30 mg PO DAILY pregabalin 25 mg capsule 25 mg PO BID tamsulosin 0.4 mg Capsule 0.4 mg PO HS 30 Days Qty: 30 0RF omeprazole 40 mg Capsule,Delayed Release(Dr/Ec) 40 mg PO DAILY Qty: 30 0RF Rx Instructions: Take on empty stomach daily. prasugrel HCl [Effient] 10 mg Tablet 10 mg PO DAILY 30 Days Qty: 30 6RF aspirin 81 mg Capsule 81 mg PO DAILY 30 Days Qty: 30 6RF Discontinued ranolazine 500 mg Tablet Extended Release 12 Hr 500 mg PO BID 30 Days Qty: 60 0RF isosorbide dinitrate 10 mg Tablet 10 mg PO TID isosorbide mononitrate 30 mg Tablet Extended Release 24 Hr 30 mg PO DAILY 30 Days Qty: 30 3RF Problem Reconciliation Problems Reviewed?: Yes Patient Discharge Instructions ACTIVITY: Continue current activity DIET: continue same diet Patient Instructions: DI for Chest Pain, Surgical Site Infection, DI for Hypotension Print Language: [place] Providers Primary Care Provider: Efrem Lauren Admit Provider: Sam Quinn Attending Provider: Sam Quinn
--- NOTE | 2024-08-30 16:45 | PC.NURSE ---
pt left the unit with ICU staff
== END 2024-08-30 16:45 | disposition home or self-care (01) | DRG 302 ==
LOC: ER 15:01 → ICU 16:28
PROVIDERS: Nurse Practitioner; Nurse Practitioner Family; Admitting Provider Internal Medicine Adolescent Medicine; Emergency Provider Student in an Organized Health Care Education/Training Program; PCP Internal Medicine; Visit Provider Internal Medicine Adolescent Medicine
DX: I25.119 Atherosclerotic heart disease of native coronary artery with unspecified angina pectoris (principal); R57.0 Cardiogenic shock; I45.2 Bifascicular block; I25.89 Other forms of chronic ischemic heart disease; E11.9 Type 2 diabetes mellitus without complications; I10 Essential (primary) hypertension; E78.5 Hyperlipidemia, unspecified; J43.8 Other emphysema; I48.91 Unspecified atrial fibrillation; D72.829 Elevated white blood cell count, unspecified; Z87.891 Personal history of nicotine dependence; Z95.5 Presence of coronary angioplasty implant and graft; Z79.82 Long term (current) use of aspirin; Z79.02 Long term (current) use of antithrombotics/antiplatelets; Z79.84 Long term (current) use of oral hypoglycemic drugs; Z79.899 Other long term (current) drug therapy; Z88.8 Allergy status to other drugs, medicaments and biological substances; Z91.030 Bee allergy status
CPT/HCPCS: 36415; 71045; 71275; 80048; 80053; 81001; 82533; 82962; 83036; 83690; 83735; 83880; 84484; 85007; 85025; 85378; 85610; 85730; 87040; 93005; 93306; 93308; J0461; J1265; J1450; J1611; J2270; J2405; J7030; Q9967

== ENCOUNTER 2024-09-04 14:00 | Emergency (ER) | payer MEDICARE, SELFPAY ==
[2024-09-04] VITALS (8 sets, daily range): BP systolic 110–156; BP diastolic 71–85; PULSE 58–79; RESP 12–21; TEMP 36.9–37.1; O2SAT 93–96; BMI 29.0
--- NOTE | 2024-09-04 14:03 | HMH.EDGENADL ---
Discharge Plan Disposition Patient Disposition: Home, Self-Care Condition: Good Prescriptions Prescriptions: No Action glipizide 10 mg tablet 10 mg PO DAILY Rx Instructions: pt states if his fsbs is less than 200 at home, he only takes half tablet (DME) Dexcom G7 Sensor Device See Rx Instructions .ROUTE .MEDSUPPLY Qty: 1 Rx Instructions: As directed metoprolol succinate [Toprol XL] 50 mg tablet extended release 24 hr 50 mg PO DAILY Qty: 30 2RF (DME) Accu-Chek Guide test strips Strip MISCELLANEOUS (DME) lancets [Accu-Chek Softclix Lancets] Mis MISCELLANEOUS midodrine 5 mg tablet 5 mg PO DAILY Patient Comments: pt states that he only takes med at bedtime nitroglycerin 0.4 mg tablet, sublingual 0.4 mg sublingual Q5MINP PRN (Reason: Chest Pain) rosuvastatin 40 mg tablet 40 mg PO HS duloxetine 30 mg capsule,delayed release(DR/EC) 30 mg PO DAILY pregabalin 25 mg capsule 25 mg PO BID tamsulosin 0.4 mg Capsule 0.4 mg PO HS 30 Days Qty: 30 0RF omeprazole 40 mg Capsule,Delayed Release(Dr/Ec) 40 mg PO DAILY Qty: 30 0RF Rx Instructions: Take on empty stomach daily. ranolazine 500 mg Tablet Extended Release 12 Hr 1,000 mg PO BID 30 Days Qty: 120 0RF isosorbide dinitrate 10 mg Tablet 10 mg PO TID 30 Days Qty: 90 0RF prasugrel HCl [Effient] 10 mg Tablet 10 mg PO DAILY 30 Days Qty: 30 6RF aspirin 81 mg Capsule 81 mg PO DAILY 30 Days Qty: 30 6RF Referrals Follow up/Referrals: Efrem Lauren DO [Primary Care Provider, Family Practice] - See instructions Activity Restrictions/Add. Instructions Additional Instructions/Restrictions: Please follow-up in cardiology clinic at 9 AM tomorrow. If you have any persistent new or worsening signs or symptoms follow-up with your PCP or return to the ER as needed. Clinical Impressions Clinical Impression: Hypotension Qualifiers: Hypotension type: unspecified hypotension type Qualified Code(s): I95.9 - Hypotension, unspecified Chest pain Qualifiers: Chest pain type: unspecified Qualified Code(s): R07.9 - Chest pain, unspecified Print Language Print Language: Angolan Discharge ED Provider: Ena Wolf General Adult HPI <ZI Naranjo - Last Filed: 09/04/24 18:32> General Chief complaint: Shortness of Breath/Dyspnea Stated complaint: Sent by Cardio. Low BP Time Seen by Provider: 09/04/24 14:03 History of Present Illness HPI narrative: [facility] Patient had stents [facility] last week. He had a follow-up today in cardiology clinic. He was noted to be hypotensive down into the 80s. Patient also reports that he has been having chest pain since his stents. They were aware of that in cardiology clinic. He denies any shortness of breath fever chills hemoptysis hematochezia melena nausea vomiting diarrhea. Patient states that his chest pain began today around 9 AM when he got out of bed and persist even now on arrival to the emergency department. Related Data Home Medications ?Medication ?Instructions ?Recorded ?Confirmed blood sugar diagnostic (Accu-Chek 01/17/24 09/04/24 Guide test strips) lancets (Accu-Chek Softclix 01/17/24 09/04/24 Lancets) duloxetine 30 mg capsule,delayed 30 mg PO DAILY 05/17/24 09/04/24 release midodrine 5 mg tablet 5 mg PO DAILY 05/17/24 09/04/24 nitroglycerin 0.4 mg sublingual 0.4 mg sublingual Q5MINP PRN Chest 05/17/24 09/04/24 tablet Pain pregabalin 25 mg capsule 25 mg PO BID 05/17/24 09/04/24 rosuvastatin 40 mg tablet 40 mg PO HS 05/17/24 09/04/24 blood-glucose sensor ([employer] G7 #1 ea 08/02/24 09/04/24 Sensor device) glipizide 10 mg tablet 10 mg PO DAILY 08/24/24 09/04/24 Previous Rx's ?Medication ?Instructions ?Recorded tamsulosin 0.4 mg capsule 0.4 mg PO HS 30 days #30 caps 05/18/24 omeprazole 40 mg capsule,delayed 40 mg PO DAILY #30 caps 06/26/24 release metoprolol succinate 50 mg 50 mg PO DAILY #30 tabs 08/22/24 tablet,extended release 24 hr (Toprol XL) aspirin 81 mg capsule 81 mg PO DAILY 30 days #30 caps 08/28/24 prasugrel HCl 10 mg tablet 10 mg PO DAILY 30 days #30 tabs 08/28/24 (Effient) isosorbide dinitrate 10 mg tablet 10 mg PO TID 30 days #90 tabs 08/30/24 ranolazine 500 mg tablet,extended 1,000 mg (2 x 500 mg) PO BID 30 08/30/24 release,12 hr days #120 tabs Allergies Allergy/AdvReac Type Severity Reaction Status Date / Time bee venom protein (honey bee) Allergy Anaphylaxis Verified 09/04/24 13:28 gabapentin Allergy Anaphylaxis Verified 09/04/24 13:28 insect venom Allergy Anaphylaxis Verified 09/04/24 13:28 [facility] <ZI Naranjo - Last Filed: 09/04/24 18:32> [facility] Disclaimer: The information contained in this section may have been updated after the patient was seen, as this information can be updated by other users. Medical History (Updated 09/04/24 @ 18:32 by ZI Naranjo) Angina pectoris Coronary arteritis Leukocytosis Cystic-bullous disease of lung Abnormal electrocardiogram [ECG] [EKG] Coronary artery disease Enlarged prostate Dizziness Syncope Cystic lung, congenital History of pneumothorax Atrial fibrillation and flutter Presence of stent in LAD coronary artery Pericardial effusion without cardiac tamponade PNA (pneumonia) Diabetes GERD (gastroesophageal reflux disease) Pericarditis Angina at rest History of heart attack Hyperlipidemia Palpitations Hypertension Heart murmur Arrhythmia History of left heart catheterization (LHC) RBBB (right bundle branch block with left anterior fascicular block) Surgical History History of cardiac cath Hx of heart artery stent Previous back surgery Family History Other Family history of COPD (chronic obstructive pulmonary disease) Family history of hyperlipidemia Family history of hypertension Family history of myocardial infarction Family history of stroke Lung cancer Social History Smoking Status: Former smoker tobacco type: cigarettes packs per day: 1 alcohol intake: former current occupational status: previously employed and disabled Travel in the last 8 weeks?: None Have you lived/traveled outside [place] in past 30 days?: No Contact w/someone who lives/traveled outside US past 30 days?: No Exposure to someone with infectious disease in past 14 days?: No Do you have a fever (greater than 100.4 F or 38 C)?: No Have you tested positive for COVID-19?: No Exposed to someone with COVID-19 in past 14 days?: No Do you have a sore throat?: No Do you have a cough?: No Do you have any weakness?: No Do you have any diarrhea?: No Are you experiencing any unusual bleeding?: No Do you have any muscle aches/pain?: No Do you have any abdominal pain?: No Are you experiencing loss of taste or smell?: No Other Medical History Have you received the Flu Vaccine for this season: No Have you received the Pneumonia Vaccine: No <ZI Naranjo - Last Filed: 09/04/24 18:32> ROS Obtained: Yes Systems reviewed as appropriate & no additional complaints except as documented Physical Exam <ZI Naranjo - Last Filed: 09/04/24 18:32> General General appearance: alert Respiratory Respiratory exam: Present normal lung sounds bilaterally Cardiovascular Cardiovascular exam: Present regular rate Neurological Exam Neurological exam: Present alert and oriented X3 Medical Decision Making <ZI Naranjo - Last Filed: 09/04/24 18:32> Medical Records Medical records reviewed: Yes I reviewed the patient's medical records. Screening: Per USPSTF and CDC recommendations, given the prevalence of disease in our region, it is our hospital?s policy to screen for HIV and viral Hepatitis for all patients aged 18 and over and those with ongoing risk factors. Moshe Inquiry Pt receiving controlled substance: No Vital Signs: 09/04/24 14:09 09/04/24 14:16 09/04/24 14:30 Temperature 98.7 F 98.7 F Temperature Source Oral Oral Pulse Rate 76 65 Pulse Rate [Right] 76 Respiratory Rate 12 12 18 Blood Pressure 119/71 110/77 Blood Pressure [Right Arm] 119/71 Blood Pressure Mean [Right Arm] 87 Blood Pressure Source Automatic Cuff Blood Pressure Source [Right Arm] Automatic Cuff Blood Pressure Position Supine Blood Pressure Position [Right Arm] Supine 02 Sat by Pulse Oximetry 95 95 95 Oxygen Delivery Method Room Air Room Air 09/04/24 15:00 09/04/24 15:31 09/04/24 16:00 Temperature Temperature Source Pulse Rate 79 58 L 59 L Pulse Rate [Right] Respiratory Rate 18 19 21 Blood Pressure 112/77 127/85 126/79 Blood Pressure [Right Arm] Blood Pressure Mean [Right Arm] Blood Pressure Source Blood Pressure Source [Right Arm] Blood Pressure Position Blood Pressure Position [Right Arm] 02 Sat by Pulse Oximetry 95 95 93 L Oxygen Delivery Method 09/04/24 16:03 09/04/24 18:42 Temperature 98.5 F Temperature Source Pulse Rate 60 60 Pulse Rate [Right] Respiratory Rate 17 18 Blood Pressure 128/76 156/80 H Blood Pressure [Right Arm] Blood Pressure Mean [Right Arm] Blood Pressure Source Blood Pressure Source [Right Arm] Blood Pressure Position Blood Pressure Position [Right Arm] 02 Sat by Pulse Oximetry 96 Oxygen Delivery Method Room Air Lab Data Lab results reviewed: Yes I reviewed the patient's lab results. Lab Results 09/04/24 14:20: WBC 11.2 H, RBC 5.09, Hgb 15.7, Hct 45.4, MCV 89.2, MCH 30.8, MCHC 34.6, RDW 12.4, Plt Count 266, MPV 10.2, Neut % (Auto) 42.2, Lymph % (Auto) 47.6, Moody % (Auto) 6.6, Eos % (Auto) 2.8, Baso % (Auto) 0.6, Neut # (Auto) 4.7, Lymph # (Auto) 5.3 H, Moody # (Auto) 0.7, Eos # (Auto) 0.3, Baso # (Auto) 0.1, Total Counted 100, Neutrophils % (Manual) 50, Lymphocytes % (Manual) 41, Monocytes % (Manual) 7, Eosinophils % (Manual) 2, Platelet Estimate Normal, RBC Morphology Normal, Sodium 138, Potassium 3.9, Chloride 101, Carbon Dioxide 31 H, Anion Gap 9.9, BUN 12, Creatinine 0.90, Estimated Creat Clear 100, Estimated GFR 84, Est GFR ( Amer) 102, Glucose 225 H, Calcium 10.0, Magnesium 1.5 L, Total Bilirubin 0.5, AST 55, ALT 33, Alkaline Phosphatase 71, Troponin I < 0.01, NT-Pro-B Natriuret Pep 248 H, Total Protein 7.5, Albumin 3.8, Globulin 3.7 H, Albumin/Globulin Ratio 1.0 L 09/04/24 17:15: Troponin I < 0.01 09/04/24 14:20 09/04/24 14:20 Orders (Tests/Meds): ED MEDICATIONS Discontinued Medications Generic Name Dose Route Start Last Admin Trade Name Freq PRN Reason Stop Dose Admin Belladonna Alkaloids 60 ml 09/04/24 17:19 09/04/24 17:31 Belladonna Alkaloids 60 Ml Ml PO 09/04/24 17:20 60 ml ONCE ONE Administration Famotidine 20 mg 09/04/24 17:18 09/04/24 17:37 Famotidine 20mg/2ml Vial IV 09/04/24 17:19 20 mg ONCE ONE Administration Sodium Chloride 1,000 mls @ 999 mls/hr 09/04/24 14:13 09/04/24 14:33 Sod Chlor 0.9% 1000ml Bag IV 09/04/24 15:13 999 mls/hr .Q1H1M ONE Administration Magnesium Sulfate 2 gm in 50 mls @ 50 mls/hr 09/04/24 14:43 09/04/24 14:51 Magnesium Sulfate 2gm/50ml Premix IV 09/04/24 15:42 50 mls/hr ONCE ONE Administration Ondansetron HCl 4 mg 09/04/24 17:19 09/04/24 17:37 Ondansetron 4mg/2ml Vial IV 09/04/24 17:20 4 mg ONCE ONE Administration Sodium Chloride 8 ml 09/04/24 17:18 Sodium Chloride 0.9% 10ml Vial IV 10/04/24 17:17 NEEDED PRN dilute pepcid ORDERS Category Date Time Status XR chest portable Stat Exams 09/04/24 15:12 Completed BNP [NT Pro Brain Natriuretic Pep.] Stat Lab 09/04/24 14:20 Completed CBC w/Auto Diff [Complete Blood Count Auto Diff] Stat Lab 09/04/24 14:20 Completed CMP [Comprehensive Metabolic Panel] Stat Lab 09/04/24 14:20 Completed Magnesium Stat Lab 09/04/24 14:20 Completed Trop I [Troponin I] Stat Lab 09/04/24 14:20 Completed Troponin I Q3H Lab 09/04/24 17:15 Completed Medical Decision Narrative: In summary patient is a 64-year-old male who presents to the emergency department for evaluation of hypotension and chest pain. Patient is initially hypotensive on arrival with a blood pressure 90 systolic at the time of my exam but a heart rate in the 70s with sinus rhythm on the bedside monitor breathing 12 times a minute satting at 95% on room air upon arrival, afebrile at 90.7. Physical exam is remarkable for clear breath sounds with no increased work of breathing adventitious sounds or excessive muscle use, cardiovascular is S1-S2 regular rate and rhythm without murmurs gallops rubs or thrills. Abdomen soft nontender no rebound or guarding no rigidity. Bowel sounds normal active. There is no dependent edema noted. There is no chest wall tenderness on palpation.. Differential diagnosis includes stent pain versus ACS versus reperfusion pain versus iatrogenic hypotension versus dehydration etc. Initial workup will be conducted with twelve-lead EKG plain film chest x-ray hematologic labs.. Initial interventions include crystalloid bolus Tylenol Toradol and Zofran for now. Initial workup reviewed by me shows that his troponin is undetectable and the remainder of his hematologic labs are nonactionable although he does have a slightly elevated NT proBNP. My informed interpretation of his plain film chest x-ray shows bibasilar atelectasis which appears new. Initial EKG did not show evidence of ACS although patient has a spinal stimulator which interferes with tracing. Upon repeat evaluation patient reports that his chest pain is unchanged however his blood pressure is improved to 120/71 after fluid bolus. Given this the patient was placed in observation status at 1515. Medical necessity for observational status is serial troponins. The patient was provided serial reevaluations continuous cardiac monitoring and pulse oximetry while awaiting results. Second troponin is also undetectable. Given this I had an interactive discussion with Dr. Ewing regarding patient presentation LOCKE and management and he feels comfortable sending the patient home with follow-up in the clinic tomorrow at 9 AM. Given this patient will be discharged home with recommendations to follow-up in cardiology clinic at 9 AM tomorrow with strict return precautions. Total time in observation was 3 hours and 15 minutes. <Ean Wolf MD - Last Filed: 09/04/24 21:32> Vital Signs: 09/04/24 14:09 09/04/24 14:16 09/04/24 14:30 Temperature 98.7 F 98.7 F Temperature Source Oral Oral Pulse Rate 76 65 Pulse Rate [Right] 76 Respiratory Rate 12 12 18 Blood Pressure 119/71 110/77 Blood Pressure [Right Arm] 119/71 Blood Pressure Mean [Right Arm] 87 Blood Pressure Source Automatic Cuff Blood Pressure Source [Right Arm] Automatic Cuff Blood Pressure Position Supine Blood Pressure Position [Right Arm] Supine 02 Sat by Pulse Oximetry 95 95 95 Oxygen Delivery Method Room Air Room Air 09/04/24 15:00 09/04/24 15:31 09/04/24 16:00 Temperature Temperature Source Pulse Rate 79 58 L 59 L Pulse Rate [Right] Respiratory Rate 18 19 21 Blood Pressure 112/77 127/85 126/79 Blood Pressure [Right Arm] Blood Pressure Mean [Right Arm] Blood Pressure Source Blood Pressure Source [Right Arm] Blood Pressure Position Blood Pressure Position [Right Arm] 02 Sat by Pulse Oximetry 95 95 93 L Oxygen Delivery Method 09/04/24 16:03 09/04/24 18:42 Temperature 98.5 F Temperature Source Pulse Rate 60 60 Pulse Rate [Right] Respiratory Rate 17 18 Blood Pressure 128/76 156/80 H Blood Pressure [Right Arm] Blood Pressure Mean [Right Arm] Blood Pressure Source Blood Pressure Source [Right Arm] Blood Pressure Position Blood Pressure Position [Right Arm] 02 Sat by Pulse Oximetry 96 Oxygen Delivery Method Room Air Lab Data Lab Results 09/04/24 14:20: WBC 11.2 H, RBC 5.09, Hgb 15.7, Hct 45.4, MCV 89.2, MCH 30.8, MCHC 34.6, RDW 12.4, Plt Count 266, MPV 10.2, Neut % (Auto) 42.2, Lymph % (Auto) 47.6, Moody % (Auto) 6.6, Eos % (Auto) 2.8, Baso % (Auto) 0.6, Neut # (Auto) 4.7, Lymph # (Auto) 5.3 H, Moody # (Auto) 0.7, Eos # (Auto) 0.3, Baso # (Auto) 0.1, Total Counted 100, Neutrophils % (Manual) 50, Lymphocytes % (Manual) 41, Monocytes % (Manual) 7, Eosinophils % (Manual) 2, Platelet Estimate Normal, RBC Morphology Normal, Sodium 138, Potassium 3.9, Chloride 101, Carbon Dioxide 31 H, Anion Gap 9.9, BUN 12, Creatinine 0.90, Estimated Creat Clear 100, Estimated GFR 84, Est GFR ( Amer) 102, Glucose 225 H, Calcium 10.0, Magnesium 1.5 L, Total Bilirubin 0.5, AST 55, ALT 33, Alkaline Phosphatase 71, Troponin I < 0.01, NT-Pro-B Natriuret Pep 248 H, Total Protein 7.5, Albumin 3.8, Globulin 3.7 H, Albumin/Globulin Ratio 1.0 L 09/04/24 17:15: Troponin I < 0.01 Orders (Tests/Meds): ED MEDICATIONS Discontinued Medications Generic Name Dose Route Start Last Admin Trade Name Freq PRN Reason Stop Dose Admin Belladonna Alkaloids 60 ml 09/04/24 17:19 09/04/24 17:31 Belladonna Alkaloids 60 Ml Ml PO 09/04/24 17:20 60 ml ONCE ONE Administration Famotidine 20 mg 09/04/24 17:18 09/04/24 17:37 Famotidine 20mg/2ml Vial IV 09/04/24 17:19 20 mg ONCE ONE Administration Sodium Chloride 1,000 mls @ 999 mls/hr 09/04/24 14:13 09/04/24 14:33 Sod Chlor 0.9% 1000ml Bag IV 09/04/24 15:13 999 mls/hr .Q1H1M ONE Administration Magnesium Sulfate 2 gm in 50 mls @ 50 mls/hr 09/04/24 14:43 09/04/24 14:51 Magnesium Sulfate 2gm/50ml Premix IV 09/04/24 15:42 50 mls/hr ONCE ONE Administration Ondansetron HCl 4 mg 09/04/24 17:19 09/04/24 17:37 Ondansetron 4mg/2ml Vial IV 09/04/24 17:20 4 mg ONCE ONE Administration Sodium Chloride 8 ml 09/04/24 17:18 Sodium Chloride 0.9% 10ml Vial IV 10/04/24 17:17 NEEDED PRN dilute pepcid ORDERS Category Date Time Status XR chest portable Stat Exams 09/04/24 15:12 Completed BNP [NT Pro Brain Natriuretic Pep.] Stat Lab 09/04/24 14:20 Completed CBC w/Auto Diff [Complete Blood Count Auto Diff] Stat Lab 09/04/24 14:20 Completed CMP [Comprehensive Metabolic Panel] Stat Lab 09/04/24 14:20 Completed Magnesium Stat Lab 09/04/24 14:20 Completed Trop I [Troponin I] Stat Lab 09/04/24 14:20 Completed Troponin I Q3H Lab 09/04/24 17:15 Completed ECG Data Tracing #1: I reviewed this ECG and interpreted as documented below: Spinal stimulator spikes noted. NSR. No ST elevation or depression. QTC 433 Medical Decision Narrative: In summary patient is a 64-year-old male who presents to the emergency department for evaluation of hypotension and chest pain. Patient is initially hypotensive on arrival with a blood pressure 90 systolic at the time of my exam but a heart rate in the 70s with sinus rhythm on the bedside monitor breathing 12 times a minute satting at 95% on room air upon arrival, afebrile at 90.7. Physical exam is remarkable for clear breath sounds with no increased work of breathing adventitious sounds or excessive muscle use, cardiovascular is S1-S2 regular rate and rhythm without murmurs gallops rubs or thrills. Abdomen soft nontender no rebound or guarding no rigidity. Bowel sounds normal active. There is no dependent edema noted. There is no chest wall tenderness on palpation.. Differential diagnosis includes stent pain versus ACS versus reperfusion pain versus iatrogenic hypotension versus dehydration etc. Initial workup will be conducted with twelve-lead EKG plain film chest x-ray hematologic labs.. Initial interventions include crystalloid bolus Tylenol Toradol and Zofran for now. Initial workup reviewed by me shows that his troponin is undetectable and the remainder of his hematologic labs are nonactionable although he does have a slightly elevated NT proBNP. My informed interpretation of his plain film chest x-ray shows bibasilar atelectasis which appears new. Initial EKG did not show evidence of ACS although patient has a spinal stimulator which interferes with tracing. Upon repeat evaluation patient reports that his chest pain is unchanged however his blood pressure is improved to 120/71 after fluid bolus. Given this the patient was placed in observation status at 1515. Medical necessity for observational status is serial troponins. The patient was provided serial reevaluations continuous cardiac monitoring and pulse oximetry while awaiting results. Second troponin is also undetectable. Given this I had an interactive discussion with Dr. Ewing regarding patient presentation LOCKE and management and he feels comfortable sending the patient home with follow-up in the clinic tomorrow at 9 AM. Given this patient will be discharged home with recommendations to follow-up in cardiology clinic at 9 AM tomorrow with strict return precautions. Total time in observation was 3 hours and 15 minutes. I was consulted by the SRUTHI, and we discussed the complexity of the problems being addressed. I approve the treatment and management plan for this patient's care in the emergency department, thus performing a substantive portion of the medical decision making. Ean Wolf MD Critical Care <ZI Naranjo - Last Filed: 09/04/24 18:32> Critical Care Time Critical Care Time: No
--- OUTSIDE RECORDS SUMMARY | 2024-09-04 14:17 | XMS_ITS | Clinical Summary ---
Author Organization [facility] Address [address] [place] [address] Phone Care Team Providers Care Immigration Consultant Name Role Phone Mila Lange MD Primary Care Provider [phone] Allergies Active Allergy Reactions Criticality Noted Date Comments Gabapentin Swelling 05/02/2022 [id number] Antimigraine Agents Other (See Comments) 01/19/2024 Contraindicated [...] 01/15/20 Active nalOXone (NARCAN) 4 mg/actuation Nasl [place], Non-Aerosol 0.1 mL by Nasal route as [...] (Inject under the skin) 46 Units nightly. [place] too please. May increase 2 units per day until fasting blood sugar is 80-110. Max potential is 100 units 18 mL 3 01/25/20 Active Additional Information Patient taking differently: 36 UnitsSubcutaneous NIGHTLY, [place] too please. May increase 2 units per [...] 2 03/23/19 25 Active DEXCOM G7 SENSOR [facility] [place] DeviceIndicatio ns:Type 2 diabetes mellitus with hyperglycemia, without long-term current use of insulin ([facility]) 1 Each by [facility] [place].(Non-Drug; Combo Route) route every 10 days. Follow [...] 04/25/19 25 Active ACCU-CHEK GUIDE TEST STRIPS [facility] [place] StripIndication s:Type 2 diabetes mellitus without complication, without long-term current use of insulin ([facility]) TEST BLOOD SUGAR TWICE DAILY 100 Strip 04/26/19 25 Active ACCU-CHEK SOFTCLIX LANCETS [facility] USE TO TEST BLOOD SUGAR TWICE DAILY [...] migh t be different from the original. [facility] - Dr. 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 A1c 9.7 on 01/19/2024 [...] (07/29/2021): Added automatically from request for surgery [id number] Assessment & Plan (02/02/2024 12:58 PM EST): History of MA Consider baby aspirin, consider statin PAF (paroxysmal [...] PM EST): On beta-demetri, not on anticoagulation 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 Assessment & Plan (01/21/2024 1:41 PM EST): [...] (02/02/2024 12:58 PM EST): Not on treatment 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 History of pneumothorax 09/04/2014 Overview (09/04/2014): 08/2014 [...] (02/02/2024 12:58 PM EST): Not on treatment 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 Tobacco use Assessment & Plan (02/02/2024 12:58 [...] Care Team Description 07/05/2024 Patient Outreach SE[facility] [address] [place] [address] Missy Wright CPhT Medication Management (Service 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 [phone]/) 06/08/2024 Patient Outreach SEP [facility] [address] [place] [address] Nery Mccartney RN CM- Longitudinal Graduation 06/06/2024 Telephone [place] [address] [place] [phone] Irma Briceño, Dairy Processing Supervisor Other (Multiple No Shows) from Last 3 Months Immunizations Immunization Administration [...] with pleuradisis; Surgeon: Frederick Holland MD; Location: ED MAIN OR; Service: General LUNG SURGERY 2010, [...] INTERVENTION(PCI) 07/31/2021 N/A CORONARY PERCUTANEOUS INTERVENTION (PCI) [[id number]]; Surgeon: Chaz Moya MD; Location: ED CARDIAC MOTH EXTERMINATOR IMAGING; Service: Cardiac Medical devices from this [...] Hyperlipidemia COPD (chronic obstructive pu lmonary disease) ([facility]) inhalers. O2 @ 2l/nc @ HS Blood circulation, collateral fe et/ankles swell, takes Lasix Heartburn Arthritis Neuromuscular disorder ([facility]) num bness and tingling left leg related [...] 4 shots of whiskey tonight [facility] Utilities Answer Date Recorded In the past [...] Date Recorded PHQ-2 Total Score 0 05/11/2024 [facility] [place] of Occupat ional Health - Occupational Stress [...] things needed for daily living? No [facility] Transportation Answer D ate Recorded [...] Lange MD Medical Devices Implanted Type Area Termite Control Servicer Device Identifier Shelf Expiration Date Model / Serial / Lot Kit Lead Surgical Artisan 2 X 8 70cm - [id number] Implanted:Qty: 1 on 09/08/2016 by Cornelia De Leon MD at [facility] NA: Spine Thoracic [employer]NEUROM[employer]ION 05/08/2018 CT-8216-7 0 / [id number] / [id number] 3 Kitgenerator Pulse Implantable Mri Montage Precision - [id number] Implanted:Qty: 1 on 09/08/2016 by Cornelia De Leon MD at [facility] NA: Back [employer]NE[employer] 08/04/2018 CT-1200 / [id number] / [id number] 3.5mm X 32mm Synergy Stent - [id number] Implanted:Qty: 1 on 07/31/2021 by Chaz Moya MD at [facility] N: LAD [employer]:CARDIAC RHYTHM MGMT [id number] 09/12/2021 [id number] / / [id number] 3.0mm X 20mm Synergy Stent - [id number] Implanted:Qty: 1 on 07/31/2021 by Chaz Moya MD at [facility] NA: Ramus [employer]CARDIAC RHYTHM MGMT [id number] 06/17/2022 [id number] / / [id number] Procedures Procedure Name Priority Date/Time Associated Diagnosis Comments SCANNED LABS 08/07/2024 5:31 AM EDT BASIC METABOLIC PANEL Early AM 05/13/2024 5:[address] ANGIOGRAM CHEST ABDOMEN W CONTRAST STAT 05/10/2024 12:59 PM EDT LIPID SCREEN Routine 04/10/2024 1:37 PM EST Coronary artery disease due to calcified coronary lesion Type 2 diabetes mellitus with hyperglycemia, without long-term current use of insulin ([facility]) Rheumatoid arthritis, involving unspecified site, unspecified whether rheumatoid factor present (HCC) History of heart artery stent PAF (paroxysmal atrial fibrillation) ([facility]) Presence of stent in LAD coronary artery [...] 2 diabetes mellitus without complication, unspecified whether shelter insulin use (HCC) ACUTE HEPATITIS PANEL Routine [...] - 145 mmol/L 05/13/2024 6:43 AM EDT [facility] Potassium 3.7 3.5 - 5.0 mmol/L 05/13/2024 6:43 AM EDT [facility] Chloride 108(H) 98 - 107 mmol/L 05/13/2024 6:43 AM EDT [facility] Total CO2 23 22 - 29 mmol/L 05/13/2024 6:43 AM EDT [facility] Anion Gap 9 7 - 16 mmol/L 05/13/2024 6:43 AM EDT [facility] Calcium 8.6(L) 8.8 - 10.4 mg/dL 05/13/2024 6:43 AM EDT [facility] Glucose Lvl 94 70 - 99 mg/dL 05/13/2024 6:43 AM EDT [facility] BUN 8 8 - 23 mg/dL 05/13/2024 6:43 AM EDT [facility] Creatinine 0.68 0.67 - 1.30 mg/dL 05/13/2024 6:43 AM EDT [facility] eGFR (CKD-EPIcr 2020) 103 >=60 mL/min/1.7 3 m2 05/13/2024 6:43 AM EDT [facility] Comment:Estimated GFR was ca lculated using the CKD-EPIcr (2020) equation refit without race. The equation is recommended by the National Kidney Foundation - [place] [employer] of Nephrology Task Force. Blood VENOUS BLOOD / Unknown Venipuncture / Unknown 05/13/2024 5:28 AM EDT 05/13/2024 6:15 AM EDT us Mami Ulloa MD CHEMISTRY ORDERABLES Final Resul t [facility] [address] [place] [address] * CT ANGIOGRAM CHEST ABDOMEN W CONTRAST [...] - 5.6 % 04/10/2024 10:14 PM EST [facility] Est. Avg Glucose 160 mg/dL 04/10/2024 10:14 PM EST [facility] Blood VENOUS BLOOD / Unknown Venipuncture / Unknown 04/10/2024 1:37 PM EST 04/10/2024 1:37 PM EST Narrative [facility] - 04/10/2024 10:14 PM EST REFERENCE RANGE: Normal: 4.0-5.6% Pre-diabetes: 5.7-6.4% Provisional diagnosis of diabetes: >6.4% Hgb F>10% and anything which shortens red cell survival, such as hemolytic anemia, or unstable hemoglobin variants such as HbSS, HbSC, or HbCC, will lower the HbA1c value associated with a given level of glycemic control. us Mila Lange MD CHEMISTRY ORDERABLES Final Res ult [facility] [address] [facility] , [place] [address] [facility] [address] [place] [address] * (ABNORMAL) LIPID SCREEN (04/10/2024 1:37 PM EST) Cholesterol 165 <200 mg/dL 04/10/2024 9:07 PM EST [facility] Comment: < 200 Desirable 200 - 239 Borderline High >= 240 High Triglyceride 165(H) <150 mg/dL 04/10/2024 9:07 PM EST [facility] Comment: < 150 Normal 150 - 199 Borderline High 200 - 499 High >= 500 Very High HDL 41 >=40 mg/dL 04/10/2024 9:07 PM EST [facility] [facility] Comment: > 60 Optimal 40 - 60 Acceptable < 40 Low LDL Calculated 95 <100 mg/dL 04/10/2024 9:07 PM EST [facility] [employer] [facility] Comment: < 100 Optimal 100 - 129 Near or above optimal 130 - 159 Borderline High 160 - 189 High >= 190 Very High The National Institutes of Health (NIH) equation is used for all lipid panels that report calculated LDL (LDL-C). Non-HDL-C Calculated 124 <=129 mg/dL 04/10/2024 9:07 PM EST [facility] [employer] [facility] Comment: <130 Desirable 130-159 Above Desirable 160-189 Borderline High 190-219 High >= 220 Very High Fasting Specimen? Yes None 025 9:07 PM EST [facility] Blood VENOUS BLOOD / Unknown Venipuncture / Unknown 04/10/2024 1:37 PM EST 04/10/2024 1:37 PM EST us Mila Lange MD CHEMISTRY ORDERABLES Final Res ult [facility] [employer], [facility] [address] [facility] [place] [id number] [facility] [address] [place], [place] [id number] * MICROALBUMIN/CREATININE RATIO URINE (01/19/2024 3:09 PM EST) Urine Microalb <12.0 mg/L 01/19/2024 8:46 PM EST [facility] [employer], [facility] Urine Creatinine 45.1 mg/dL 01/19/20 24 8:46 PM EST [facility] [employer], [facility] Ur Microalb/Creat 024 8:46 PM EST [facility], [facility] Comment: Because [...] URINE ORDERABLES Final Result Performing Organization Address [facility] Co de Phone Number [facility] [address] [facility] , [place] [address] * ACUTE HEPATITIS PANEL (04/10/2019 9:08 AM EST) Hep Bs Ag Non-Reacti ve Non-Reacti ve 04/10/2019 3:08 PM EST [facility] Hep B Core IgM Non-Reacti ve Non-Reacti ve 04/10/2019 3:08 PM EST [facility] Hep A IgM Non-Reacti ve Non-Reacti ve 04/10/2019 3:08 PM EST [facility] Hep C Ab Non-Reacti ve Non-Reacti ve 04/10/2019 3:08 PM EST [facility] Blood VENOUS BLOOD / Unknown Venipuncture / Unknown 04/10/2019 9:08 AM EST 04/10/2019 9:08 AM EST us Mila Lange MD CHEMISTRY ORDERABLES Final Res ult Performing Organization Address [facility] Co de Phone Number [facility] [employer] [address] [facility] , [place] [address] * DIABETES EYE EXAM (09/18/2018) us Historical Provider HEALTH MAINTENANCE Final Res ult Performing Organization Address City/[facility] Co de Phone Number SEP OFFICE from Last 3 Months or Most Recently Relevant to Health Maintenance Insurance REBECC[employer]CHO JUANY MR FRANNIE [place]ARR[place] MR FRANNIE [place] MR Advance Directives For more information, please contact: [phone] * Full Code (Latest Code Status on [...] 5:12 AM 02/16/2024 11:29 PM Care Teams Immigration Consultant Relationship Specialty Start Date End Date Mila Lange MD [address] [place] [address] PCP - General Family Medicine 06/22/11
--- NOTE | 2024-09-04 14:23 | ECG_ITS ---
APPROVED REPORT Exam: Resting ECG HR:66 bpm ECG Measurements Heart Rate 66 AXES NM 283 P 148 QRSd 141 QRS -73 QT 419 T -32 QTc 433 Conclusion ELECTRONIC ATRIAL PACEMAKER ELECTRONIC VENTRICULAR PACEMAKER ABNORMAL RHYTHM ECG UNCONFIRMED REPORT Electronically signed by : LISA TAYLOR, 09/05/2024 05:56:35
[2024-09-04 14:30] LABS: Hematocrit 45.4 % (42.0-52.0); Hemoglobin 15.7 g/dL (14.1-18.0); Immature Granulocytes % 0.2 %; Mean Corpuscular HGB Conc 34.6 g/dL (31.8-35.4); Mean Corpuscular Hemoglobin 30.8 pg (27.0-31.2); Mean Corpuscular Volume 89.2 fl (80-94); Nucleated Red Blood Cells % 0 %; Platelet Count 266 K/mm3 (142-424); Red Blood Count 5.09 M/mm3 (4.60-6.20); Red Cell Distribution Width-SD 40.9 fL; White Blood Count 11.2 K/mm3 (4.8-10.8)
[2024-09-04] MEDS: 0.9 % SODIUM CHLORIDE 1000ML 1,000 ML 999 ML IV (14:33)
[2024-09-04 14:38] LABS: Albumin Level 3.8 g/dl (3.5-5.0); Chloride 101 mmol/L (98-107); Potassium 3.9 mmoL/L (3.5-5.1); Sodium 138 mmol/L (136-145)
[2024-09-04 14:41] LABS: Alanine Aminotransferase 33 U/L (12-78); Albumin/Globulin Ratio 1.0 (1.1-1.8); Alkaline Phosphatase 71 U/L (38-126); Anion Gap 9.9 mEq/L (5-15); Aspartate Amino Transferase 55 U/L (17-59); Bilirubin,Total 0.5 mg/dl (0.2-1.3); Blood Urea Nitrogen 12 mg/dl (9-20); Carbon Dioxide 31 mmol/L (22.0-30.0); Creatinine Clearance Estimated 100 mL/min (50-200); Creatinine,Serum 0.90 mg/dl (0.66-1.25); Estimated Glomerular Filt Rate 84 ml/min (>60); GFR (African American) 102 ML/MIN (>60); Globulin 3.7 g/dL (1.3-3.2); Total Protein,Serum 7.5 g/dl (6.3-8.2)
[2024-09-04 14:42] LABS: Calcium 10.0 mg/dl (8.4-10.2); Glucose 225 mg/dl (74-100); Magnesium 1.5 mg/dl (1.6-2.3)
[2024-09-04] MEDS: MAGNESIUM SULFATE IN WATER 2 GM/50 ML PIGGYBACK IV (14:51)
[2024-09-04 14:57] LABS: NT Pro Brain Natriuretic Pep. 248 pg/mL (0-125)
[2024-09-04 15:07] LABS: RBC Morphology Normal; Total Cells Counted 100
--- NOTE | 2024-09-04 15:12 | XR_ITS ---
FINAL REPORT CLINICAL HISTORY: chest pain, soa, right arm pain, hypotension x few days, weakness COMPARISON: 08/29/2024 FINDINGS: A portable view of the chest was obtained. There is stable mild cardiomegaly. The mediastinum is unremarkable. There are bibasilar opacities, new since prior which could represent atelectasis, less likely pneumonia. There is no pleural effusion or pneumothorax. IMPRESSION: Bibasilar atelectasis, less likely pneumonia. Reviewed, Interpreted and Dictated by Di Carney MD Transcribed by Suni Pedro Authenticated and [facility]
[2024-09-04 15:15] LABS: Troponin I < 0.01 ng/ml (0.00-0.034)
--- OUTSIDE RECORDS SUMMARY | 2024-09-04 15:16 | XMS_ITS | CCD ---
Author Organization Unknown Care Team Providers Care Manager Actuarial Name Role Phone Unavailable Primary Care Provider Unavailabl e Unavailable Chronic Care Management Unavaila ble Summary Purpose DataExchange Insurance Providers Payer name Policy type / Coverage type Covered green party ID Effective Begin Date Effective End Date [facility] [id number] Unknown Unknown Family History Family History data not found Medication Administered No Medication Administered data Reason For Visit No Reason For Visit data Medical Equipment No Medical Equipment data Advance Directives No Advance Directive data
--- OUTSIDE RECORDS SUMMARY | 2024-09-04 15:16 | XMS_ITS | CCD ---
Author Organization Unknown Care Team Providers Care Carpenter/Labor Name Role Phone Unavailable Primary Care Provider Unavailabl e Unavailable Chronic Care Management Unavaila ble Summary Purpose DataExchange Insurance Providers Payer name Policy type / Coverage type Covered democrat ID Effective Begin Date Effective End Date [facility] [id number] Unknown Unknown Family History Family History data not found Medication Administered No Medication Administered data Reason For Visit No Reason For Visit data Medical Equipment No Medical Equipment data Advance Directives No Advance Directive data
[2024-09-04] MEDS: BELLADONNA ALKALOIDS 60 ML ML PO (17:31)
[2024-09-04] MEDS: ONDANSETRON 4MG/2ML VIAL 4 MG IV (17:37)
[2024-09-04] MEDS: FAMOTIDINE 20MG/2ML VIAL 20 MG IV (17:37)
[2024-09-04 18:24] LABS: Troponin I < 0.01 ng/ml (0.00-0.034)
--- NOTE | 2024-09-04 18:36 | PC.NURSE ---
Patient given appt for tomorrow 09/05/24 morning at 0900 with cardiology clinic. Message left at cardiology clinic about patient's appt.
== END 2024-09-04 18:43 | disposition home or self-care (01) ==
PROVIDERS: Physician Assistant; Emergency Provider Student in an Organized Health Care Education/Training Program; PCP Internal Medicine
DX: R07.9 Chest pain, unspecified (principal); I95.9 Hypotension, unspecified; K21.9 Gastro-esophageal reflux disease without esophagitis; E78.5 Hyperlipidemia, unspecified; E11.9 Type 2 diabetes mellitus without complications
CPT/HCPCS: 71045; 80053; 83735; 83880; 84484; 85007; 85025; 85027; 93005; 96361; 96365; 96375; 99285; J2405; J3475; J7030

== ENCOUNTER 2024-09-09 09:17 | Emergency (ER) | payer MEDICARE, SELFPAY ==
[2024-09-09] VITALS (11 sets, daily range): BP systolic 88–113; BP diastolic 65–86; PULSE 68–108; RESP 13–28; TEMP 36.6–37.1; O2SAT 92–97; BMI 29.5
--- NOTE | 2024-09-09 09:18 | ECG_ITS ---
APPROVED REPORT Exam: Resting ECG HR:107 bpm ECG Measurements Heart Rate 107 AXES UT 160 P 15 QRSd 133 QRS -79 QT 321 T 61 QTc 384 Conclusion SINUS TACHYCARDIA WITH OCCASIONAL SUPRAVENTRICULAR PREMATURE COMPLEXES RIGHT BUNDLE BRANCH BLOCK [120+ ms QRS DURATION, UPRIGHT V1, 40+ ms S IN I/aVL/V4/V5/V6] LEFT ANTERIOR FASCICULAR BLOCK [QRS AXIS <= -45, QR IN I, RS IN II] PROBABLE SEPTAL MYOCARDIAL INFARCTION , OF INDETERMINATE AGE [35 ms Q WAVE IN V1/V2] ABNORMAL ECG UNCONFIRMED REPORT Electronically signed by : LISA TAYLOR, 09/11/2024 04:21:26
--- NOTE | 2024-09-09 09:30 | PC.NURSE ---
fsbs 271. pt reports chest pain and SOA waking him up form sleep about 0630. he feels weak.
--- NOTE | 2024-09-09 09:54 | XR_ITS ---
PROCEDURE INFORMATION: Exam: XR Chest Exam date and time: 09/09/2024 10:13 AM Age: 64 years old Clinical indication: Other: Chest pain TECHNIQUE: Imaging protocol: Radiologic exam of the chest. Views: 1 view. COMPARISON: CR XR CHEST PORTABLE 09/04/2024 3:16 PM FINDINGS: Lungs: Stable mild bibasilar opacities, likely atelectasis rather than pneumonia. Pleural spaces: Unremarkable. No pleural effusion. No pneumothorax. Heart/Mediastinum: Unremarkable. No cardiomegaly. Bones/joints: Unremarkable. IMPRESSION: Stable mild bibasilar opacities, likely atelectasis rather than pneumonia.
--- OUTSIDE RECORDS SUMMARY | 2024-09-09 09:56 | XMS_ITS | Clinical Summary ---
Author Organization [facility] Address [address] [place] [address] Phone Care Team Providers Care Middleware Systems Architect Name Role Phone Mila Lange MD Primary Care Provider [phone] Allergies Active Allergy Reactions Criticality Noted Date Comments Gabapentin Swelling 05/02/2022 [id number] Antimigraine Agents Other (See Comments) 01/19/2024 Contraindicated [...] 01/15/20 Active nalOXone (NARCAN) 4 mg/actuation Nasl [place], Non-Aerosol 0.1 mL by Nasal route as [...] (Inject under the skin) 46 Units nightly. [place] too please. May increase 2 units per day until fasting blood sugar is 80-110. Max potential is 100 units 18 mL 3 01/25/20 Active Additional Information Patient taking differently: 36 UnitsSubcutaneous NIGHTLY, [place] too please. May increase 2 units per [...] 2 03/23/19 25 Active DEXCOM G7 SENSOR [facility] DeviceIndicatio ns:Type 2 diabetes mellitus with hyperglycemia, without long-term current use of insulin ([facility]) 1 Each by [facility].(Non-Drug; Combo Route) route every 10 days. Follow [...] 04/25/19 25 Active ACCU-CHEK GUIDE TEST STRIPS [facility] StripIndication s:Type 2 diabetes mellitus without complication, without long-term current use of insulin ([facility]) TEST BLOOD SUGAR TWICE DAILY 100 Strip 04/26/19 25 Active ACCU-CHEK SOFTCLIX LANCETS [facility] USE TO TEST BLOOD SUGAR TWICE DAILY [...] migh t be different from the original. [facility] - Dr. 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 A1c 9.7 on 01/19/2024 [...] (07/29/2021): Added automatically from request for surgery [id number] Assessment & Plan (02/02/2024 12:58 PM EST): History of AL Consider baby aspirin, consider statin PAF (paroxysmal [...] PM EST): On beta-demetri, not on anticoagulation 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 Assessment & Plan (01/21/2024 1:41 PM EST): [...] (02/02/2024 12:58 PM EST): 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 History of pneumothorax 09/04/2014 Overview (09/04/2014): 08/2014 [...] (02/02/2024 12:58 PM EST): 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 Tobacco use Assessment & Plan (02/02/2024 12:58 [...] SEP [facility] [address] [place] [address] Missy Wright CPhT Medication Management (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 O2 @ 2l/nc @ HS Blood [...] pt reports drinking 4 shots of whiskey [employer] [facility] [employer] Answer Date Recorded In the past 12 [...] Date Recorded PHQ-2 Total Score 0 05/11/2024 [facility] [place] [facility] Occupat ional Health - Occupational Stress [...] things needed for daily living? No 01/12/2023 [facility] [address] IP Transportation Answer D ate Recorded In [...] Lange MD Medical Devices Implanted Type Area Marriage Performer Device Identifier Shelf Expiration Date Model / Serial / Lot Kit Lead Surgical Artisan 2 X 8 70cm - [id number] Implanted:Qty: 1 on 09/08/2016 by Cornelia De Leon MD at [facility] N/A: Spine Thoracic [employer]NEUROMOD[employer]A [employer]ION 05/08/2018 [id number] / [id number] / [id number] 3 Kitgenerator Pulse Implantable Mri Montage Precision - [id number] Implanted:Qty: 1 on 09/08/2016 by Cronelia De Leon MD at [facility] N/A: Back [employer]NEUROM[employer]ION 08/04/2018 [id number] / [id number] / [id number] 3.5mm X 32mm Synergy Stent - [id number] Implanted:Qty: 1 on 07/31/2021 by Chaz Moya MD at [facility] N/A: LAD [employer]:CARDIAC RHYTHM MGMT [id number] 09/12/2021 [id number] / / [id number] 3.0mm X 20mm Synergy Stent - [id number] Implanted:Qty: 1 on 07/31/2021 by Chaz Moya MD at [facility] N/A: Ramus [employer]:CARDIAC RHY[employer]M MGMT [id number] 06/17/2022 [id number] / / [id number] Procedures Procedure Name Priority Date/Time Associated Diagnosis [...] 2 diabetes mellitus without complication, unspecified whether snf insulin use (HCC) ACUTE HEPATITIS PANEL Routine 04/10/2019 9:08 AM EST Type 2 diabetes mellitus without complication, without long-term current use of insulin (HCC) Essential hypertension Elevated liver enzymes Generalized abdominal pain DIABETES EYE EXAM Routine 09/18/2018 from Last 3 Months or Most Recently Relevant to Health Maintenance Results * [facility] (08/07/2024 5:31 AM EDT) 08/07/2024 5:31 AM EDT us Unknown Provider HEMATOLOGY ORDERABLES Final Res ult * (ABNORMAL) BASIC METABOLIC PANEL (05/13/2024 5:28 AM EDT) Sodium 140 136 - 145 mmol/L 05/13/2024 6:43 AM EDT [facility] Potassium 3.7 3.5 - 5.0 mmol/L 05/13/2024 6:43 AM EDT [facility] Chloride 108(H) 98 - 107 mmol/L 05/13/2024 6:43 AM EDT [facility] Total CO2 23 22 - 29 mmol/L 05/13/2024 6:43 AM EDT [facility] Anion Gap 9 7 - 16 mmol/L 05/13/2024 6:43 AM EDT [facility] Calcium 8.6(L) 8.8 - 10.4 mg/dL 05/13/2024 6:43 AM EDT [facility] Glucose Lvl 94 70 - 99 mg/dL 05/13/2024 6:43 AM EDT [facility] BUN 8 8 - 23 mg/dL 05/13/2024 6:43 AM EDT [facility] Creatinine 0.68 0.67 - 1.30 mg/dL 05/13/2024 6:43 AM EDT [facility] eGFR (CKD-EPIcr 2020) 103 >=60 mL/min/1.7 3 m2 05/13/2024 6:43 AM EDT [facility] Comment:Estimated GFR was ca lculated using the CKD-EPIcr (2020) equation refit without race. The equation is recommended by the National Kidney Foundation - [place] Society of Nephrology Task Force. Blood VENOUS BLOOD / Unknown Venipuncture / Unknown 05/13/2024 5:28 AM EDT 05/13/2024 6:15 AM EDT us Mami Ulloa MD CHEMISTRY ORDERABLES Final Resul t [facility] [address] [place] [address] * CT ANGIOGRAM CHEST ABDOMEN W CONTRAST [...] - 5.6 % 04/10/2024 10:14 PM EST [facility] [employer] [facility] Est. Avg Glucose 160 mg/dL 04/10/2024 10:14 PM EST [facility] Blood VENOUS BLOOD / Unknown Venipuncture / Unknown 04/10/2024 1:37 PM EST 04/10/2024 1:37 PM EST Narrative [facility] [employer] [facility] - 04/10/2024 10:14 PM EST REFERENCE RANGE: Normal: 4.0-5.6% Pre-diabetes: 5.7-6.4% Provisional diagnosis of diabetes: >6.4% Hgb F>10% and anything which shortens red cell survival, such as hemolytic anemia, or unstable hemoglobin variants such as HbSS, HbSC, or HbCC, will lower the HbA1c value associated with a given level of glycemic control. us Mila Lange MD CHEMISTRY ORDERABLES Final Res ult [facility] [employer] [facility] [address] [facility] , [place] [address] [facility] [address] [place] [address] * (ABNORMAL) LIPID SCREEN (04/10/2024 1:37 PM EST) Cholesterol 165 <200 mg/dL 04/10/2024 9:07 PM EST [employer] [facility] Comment: < 200 Desirable 200 - 239 Borderline High >= 240 High Triglyceride 165(H) <150 mg/dL 04/10/2024 9:07 PM EST [employer] [facility] Comment: < 150 Normal 150 - 199 Borderline High 200 - 499 High >= 500 Very High HDL 41 >=40 mg/dL 04/10/2024 9:07 PM EST [facility] Comment: > 60 Optimal 40 - 60 Acceptable < 40 Low LDL Calculated 95 <100 mg/dL 04/10/2024 9:07 PM EST [facility] Comment: < 100 Optimal 100 - 129 Near or above optimal 130 - 159 Borderline High 160 - 189 High >= 190 Very High The National Institutes of Health (NIH) equation is used for all lipid panels that report calculated LDL (LDL-C). Non-HDL-C Calculated 124 <=129 mg/dL 04/10/2024 9:07 PM EST [employer] [email or web address], [facility] Comment: <130 Desirable 130-159 Above Desirable 160-189 Borderline High 190-219 High >= 220 Very High Fasting Specimen? Yes None 025 9:07 PM EST [facility] Blood VENOUS BLOOD / Unknown Venipuncture / Unknown 04/10/2024 1:37 PM EST 04/10/2024 1:37 PM EST us Mila Lange MD CHEMISTRY ORDERABLES Final Res ult Performing Organization Address City/[facility]/ZIP Co de Phone Number [employer], [address] , [place] [address] [facility] [address] [place] [address] * MICROALBUMIN/CREATININE RATIO URINE (01/19/2024 3:09 PM EST) [facility] Urine Microalb <12.0 mg/L 01/19/2024 8:46 PM EST [facility] [employer], [facility] Urine Creatinine 45.1 mg/dL 01/19/20 24 8:46 PM EST [facility] [employer], [facility] Ur Microalb/Creat 024 8:46 PM EST [facility] [employer] [facility] Comment: Because the albumin level [...] URINE ORDERABLES Final Result Performing Organization Address [facility] Co de Phone Number [facility] [address] [facility] , [place] [id number] * ACUTE HEPATITIS PANEL (04/10/2019 9:08 AM EST) [facility] Hep Bs Ag Non-Reacti ve Non-Reacti ve 04/10/2019 3:08 PM EST [facility] Hep B Core IgM Non-Reacti ve Non-Reacti ve 04/10/2019 3:08 PM EST [facility] Hep A IgM Non-Reacti ve Non-Reacti ve 04/10/2019 3:08 PM EST [facility] Hep C Ab Non-Reacti ve Non-Reacti ve 04/10/2019 3:08 PM EST [facility] Blood VENOUS BLOOD / Unknown Venipuncture / Unknown 04/10/2019 9:08 AM EST 04/10/2019 9:08 AM EST Mila Lange MD CHEMISTRY ORDERABLES Final Res ult [id number], [employer] [address] [facility] , [address] [place] [id number] * DIABETES EYE EXAM (09/18/2018) us [facility] Provider HEALTH MAINTENANCE Final Res ult SEP OFFICE from Last 3 Months or Most Recently Relevant to Health Maintenance Insurance FRANNIE HARRINGTON MR FRANNIE HARRINGTON MR FRANNIE HARRINGTON MR Advance Directives For more information, please contact: [phone] * Full Code (Latest Code Status on [...] 5:12 AM 02/16/2024 11:29 PM Care Teams Middleware Systems Architect Relationship Specialty Start Date End Date Mila Lange MD [address] [place] [address] PCP - General Family Medicine 06/22/11
[2024-09-09 10:05] LABS: Hematocrit 45.4 % (42.0-52.0); Hemoglobin 15.7 g/dL (14.1-18.0); Immature Granulocytes % 0.2 %; Mean Corpuscular HGB Conc 34.6 g/dL (31.8-35.4); Mean Corpuscular Hemoglobin 31.3 pg (27.0-31.2); Mean Corpuscular Volume 90.6 fl (80-94); Nucleated Red Blood Cells % 0 %; Platelet Count 256 K/mm3 (142-424); Red Blood Count 5.01 M/mm3 (4.60-6.20); Red Cell Distribution Width-SD 41.1 fL; White Blood Count 10.3 K/mm3 (4.8-10.8)
[2024-09-09 10:08] LABS: Albumin Level 3.9 g/dl (3.5-5.0); Chloride 101 mmol/L (98-107); Potassium 4.1 mmoL/L (3.5-5.1); Sodium 136 mmol/L (136-145)
[2024-09-09 10:11] LABS: Alanine Aminotransferase 39 U/L (12-78); Albumin/Globulin Ratio 1.1 (1.1-1.8); Alkaline Phosphatase 77 U/L (38-126); Anion Gap 11.1 mEq/L (5-15); Aspartate Amino Transferase 61 U/L (17-59); Bilirubin,Total 0.4 mg/dl (0.2-1.3); Blood Urea Nitrogen 14 mg/dl (9-20); Calcium 10.5 mg/dl (8.4-10.2); Carbon Dioxide 28 mmol/L (22.0-30.0); Creatinine Clearance Estimated 99 mL/min (50-200); Creatinine,Serum 0.90 mg/dl (0.66-1.25); Estimated Glomerular Filt Rate 84 ml/min (>60); GFR (African American) 102 ML/MIN (>60); Globulin 3.7 g/dL (1.3-3.2); Glucose 261 mg/dl (74-100); Total Protein,Serum 7.6 g/dl (6.3-8.2)
[2024-09-09 10:12] LABS: INR 0.98 (0.9-1.1); Prothrombin Time 10.9 seconds (10.1-12.5)
[2024-09-09] MEDS: 0.9 % SODIUM CHLORIDE 1000ML 1,000 ML 999 ML IV (10:14)
[2024-09-09] MEDS: ACETAMINOPHEN 500MG TAB 1000 MG PO (10:15)
[2024-09-09] MEDS: IPRATROPIUM/ALBUTEROL 3 ML NEB IH (10:15)
[2024-09-09 10:21] LABS: D-Dimer 1.18 ug/mL (0.0-0.5); NT Pro Brain Natriuretic Pep. 94.8 pg/mL (0-125)
--- NOTE | 2024-09-09 10:33 | HMH.EDGENADL ---
Discharge Plan Disposition Patient Disposition: Home, Self-Care Condition: Good Prescriptions Prescriptions: No Action glipizide 10 mg tablet 10 mg PO DAILY Rx Instructions: pt states if his fsbs is less than 200 at home, he only takes half tablet Jardiance 25 mg tablet 25 mg PO DAILY Qty: 30 2RF Jardiance 10 mg tablet 0RF omeprazole 40 mg capsule,delayed release(DR/EC) 40 mg PO DAILY Qty: 90 3RF Rx Instructions: Take on empty stomach daily. tamsulosin 0.4 mg capsule 0.4 mg PO HS Qty: 90 3RF (DME) Dexcom G7 Sensor Device See Rx Instructions .ROUTE .MEDSUPPLY Qty: 1 Rx Instructions: As directed metoprolol succinate 25 mg tablet extended release 24 hr 25 mg PO DAILY Qty: 30 3RF (DME) Accu-Chek Guide test strips Strip MISCELLANEOUS (DME) lancets [Accu-Chek Softclix Lancets] Misc MISCELLANEOUS midodrine 5 mg tablet 5 mg PO DAILY Patient Comments: pt states that he only takes med at bedtime nitroglycerin 0.4 mg tablet, sublingual 0.4 mg sublingual Q5MINP PRN (Reason: Chest Pain) rosuvastatin 40 mg tablet 40 mg PO HS duloxetine 30 mg capsule,delayed release(DR/EC) 30 mg PO DAILY pregabalin 25 mg capsule 25 mg PO BID ranolazine 500 mg Tablet Extended Release 12 Hr 1,000 mg PO BID 30 Days Qty: 120 0RF prasugrel HCl [Effient] 10 mg Tablet 10 mg PO DAILY 30 Days Qty: 30 6RF aspirin 81 mg Capsule 81 mg PO DAILY 30 Days Qty: 30 6RF Referrals Follow up/Referrals: Efrem Lauren DO [Primary Care Provider, Family Practice] - See instructions Activity Restrictions/Add. Instructions Additional Instructions/Restrictions: Your workup here in the emergency department was negative for acute symptoms. Follow-up with cardiology as scheduled on Tuesday. Return to the emergency department for any acute or worsening symptoms. Clinical Impressions Clinical Impression: Chest pain Print Language Print Language: Faroese Discharge ED Provider: Isis Wright Adult HPI General Chief complaint: Chest Pain Stated complaint: cp Time Seen by Provider: 09/09/24 09:23 Mode of Arrival: Ambulatory Source of Information: Patient Description of Symptoms (Recalled from ER Triage Doc. by RN): chest pain and soa started @0630 has had multiple episodes the last few weeks. sees chris History of Present Illness HPI narrative: Patient is a 54-year-old male who presents to the emergency department with chest pain that started at 6:00 this morning. Patient states that chest pain was in the center of his chest, nonradiating. Patient reports similar pain in the past patient was seen 5 days ago in the emergency department for similar symptoms. Patient reports recent stent placement with Dr. Ewing. Patient denies any shortness of breath. Patient denies any abdominal pain nausea vomiting or diarrhea. Patient denies any palpitations. Patient denies any neurologic symptoms such as numbness or weakness or headaches. Patient did not take any medications prior to arrival. Patient has a scheduled cardiology appointment on Tuesday. Related Data Home Medications ?Medication ?Instructions ?Recorded ?Confirmed blood sugar diagnostic (Accu-Chek 01/17/24 09/12/24 Guide test strips) lancets (Accu-Chek Softclix 01/17/24 09/12/24 Lancets) duloxetine 30 mg capsule,delayed 30 mg PO DAILY 05/17/24 09/12/24 release midodrine 5 mg tablet 5 mg PO DAILY 05/17/24 09/12/24 nitroglycerin 0.4 mg sublingual 0.4 mg sublingual Q5MINP PRN Chest 05/17/24 09/12/24 tablet Pain pregabalin 25 mg capsule 25 mg PO BID 05/17/24 09/12/24 rosuvastatin 40 mg tablet 40 mg PO HS 05/17/24 09/12/24 blood-glucose sensor ([facility] G7 #1 ea 08/02/24 09/12/24 Sensor device) glipizide 10 mg tablet 10 mg PO DAILY 08/24/24 09/12/24 Previous Rx's ?Medication ?Instructions ?Recorded aspirin 81 mg capsule 81 mg PO DAILY 30 days #30 caps 08/28/24 prasugrel HCl 10 mg tablet 10 mg PO DAILY 30 days #30 tabs 08/28/24 (Effient) ranolazine 500 mg tablet,extended 1,000 mg (2 x 500 mg) PO BID 30 08/30/24 release,12 hr days #120 tabs metoprolol succinate 25 mg 25 mg PO DAILY #30 tabs 09/05/24 tablet,extended release 24 hr empagliflozin 25 mg tablet 25 mg PO DAILY #30 tabs 09/07/24 (Jardiance) omeprazole 40 mg capsule,delayed 40 mg PO DAILY #90 caps 09/07/24 release tamsulosin 0.4 mg capsule 0.4 mg PO HS #90 caps 09/07/24 Allergies Allergy/AdvReac Type Severity Reaction Status Date / Time bee venom protein (honey bee) Allergy Anaphylaxis Verified 09/12/24 09:01 gabapentin Allergy Anaphylaxis Verified 09/12/24 09:01 insect venom Allergy Anaphylaxis Verified 09/12/24 09:01 [facility] Disclaimer: The information contained in this section may have been updated after the patient was seen, as this information can be updated by other users. Medical History Angina pectoris Coronary arteritis Leukocytosis Cystic-bullous disease of lung Abnormal electrocardiogram [ECG] [EKG] Coronary artery disease Enlarged prostate Dizziness Syncope Cystic lung, congenital History of pneumothorax Atrial fibrillation and flutter Presence of stent in LAD coronary artery Pericardial effusion without cardiac tamponade PNA (pneumonia) Diabetes GERD (gastroesophageal reflux disease) Pericarditis Angina at rest History of heart attack Hyperlipidemia Palpitations Hypertension Heart murmur Arrhythmia History of left heart catheterization (LHC) RBBB (right bundle branch block with left anterior fascicular block) Surgical History History of cardiac cath Hx of heart artery stent Previous back surgery Family History Other Family history of COPD (chronic obstructive pulmonary disease) Family history of hyperlipidemia Family history of hypertension Family history of myocardial infarction Family history of stroke Lung cancer Social History Smoking Status: Former smoker tobacco type: cigarettes packs per day: 1 pack-years: 52 alcohol intake: former current occupational status: previously employed and disabled Travel in the last 8 weeks?: None Other Medical History Have you received the Flu Vaccine for this season: No Have you received the Pneumonia Vaccine: No ROS Obtained: Yes All systems reviewed & no additional complaints except as documented and Yes Systems reviewed as appropriate & no additional complaints except as documented Physical Exam General General appearance: alert and in no apparent distress Head Head exam: atraumatic, normocephalic and normal inspection Eye Eye exam: Present normal appearance, PERRL and EOMI; Absent scleral icterus ENT ENT exam: Present normal exam and normal external ear exam Neck Neck exam: Present normal inspection and full ROM Chest Chest inspection: Present normal inspection and symmetric chest wall rise Respiratory Respiratory exam: Present normal lung sounds bilaterally; Absent respiratory distress or wheezes Cardiovascular Cardiovascular exam: Present regular rate, normal rhythm and normal heart sounds Abdominal Exam Abdominal exam: Present soft and distention; Absent tenderness, guarding or rebound Extremities Exam Extremities exam: Present normal inspection and full ROM Back Exam Back exam: Present normal inspection and full ROM Neurological Exam Neurological exam: Present alert and oriented X3 Psychiatric Psychiatric exam: Present normal affect and normal mood Skin Skin exam: Present warm and dry Medical Decision Making Medical Records Screening: Per USPSTF and CDC recommendations, given the prevalence of disease in our region, it is our hospital?s policy to screen for HIV and viral Hepatitis for all patients aged 18 and over and those with ongoing risk factors. Moshe Inquiry Pt receiving controlled substance: No Vital Signs: 09/09/24 09:21 09/09/24 09:30 09/09/24 10:00 Temperature 98 F Temperature Source Oral Pulse Rate 104 H 104 H Pulse Rate [Right] 108 H Respiratory Rate 28 H 20 20 Blood Pressure 104/69 L 102/65 L Blood Pressure [Right Arm] 109/75 L Blood Pressure Mean [Right Arm] 86 Blood Pressure Source Blood Pressure Position 02 Sat by Pulse Oximetry 95 96 96 Oxygen Delivery Method Room Air Room Air Room Air 09/09/24 10:30 09/09/24 11:00 09/09/24 11:30 Temperature Temperature Source Pulse Rate 101 H 95 H 98 H Pulse Rate [Right] Respiratory Rate 15 22 18 Blood Pressure 101/69 L 105/74 L 112/80 Blood Pressure [Right Arm] Blood Pressure Mean [Right Arm] Blood Pressure Source Blood Pressure Position 02 Sat by Pulse Oximetry 96 92 L 92 L Oxygen Delivery Method Room Air Room Air Room Air 09/09/24 12:00 09/09/24 13:00 09/09/24 13:30 Temperature Temperature Source Pulse Rate 96 H 68 78 Pulse Rate [Right] Respiratory Rate 17 26 H 19 Blood Pressure 113/86 88/69 L 106/73 L Blood Pressure [Right Arm] Blood Pressure Mean [Right Arm] Blood Pressure Source Blood Pressure Position 02 Sat by Pulse Oximetry 97 93 L 94 L Oxygen Delivery Method Room Air 09/09/24 13:45 09/09/24 15:21 Temperature 98.7 F Temperature Source Oral Pulse Rate 95 H 79 Pulse Rate [Right] Respiratory Rate 13 16 Blood Pressure 106/73 L Blood Pressure [Right Arm] Blood Pressure Mean [Right Arm] Blood Pressure Source Automatic Cuff Blood Pressure Position Supine 02 Sat by Pulse Oximetry 94 L Oxygen Delivery Method Room Air Lab Data Lab results reviewed: Yes I reviewed the patient's lab results. Lab Results 09/09/24 09:20: WBC 10.3, RBC 5.01, Hgb 15.7, Hct 45.4, MCV 90.6, MCH 31.3 H, MCHC 34.6, RDW 12.5, Plt Count 256, MPV 10.6 H, Neut % (Auto) 39.1, Lymph % (Auto) 50.5 H, [place] % (Auto) 7.1, Eos % (Auto) 2.3, Baso % (Auto) 0.8, Neut # (Auto) 4.0, Lymph # (Auto) 5.2 H, [place] # (Auto) 0.7, Eos # (Auto) 0.2, Baso # (Auto) 0.1, Total Counted 100, Neutrophils % (Manual) 41 L, Lymphocytes % (Manual) 48, Monocytes % (Manual) 8, Eosinophils % (Manual) 3, Platelet Estimate Normal, RBC Morphology Normal, PT 10.9, INR 0.98, D-Dimer 1.18 H, Sodium 136, Potassium 4.1, Chloride 101, Carbon Dioxide 28, Anion Gap 11.1, BUN 14, Creatinine 0.90, Estimated Creat Clear 99, Estimated GFR 84, Est GFR ( Amer) 102, Glucose 261 H, Calcium 10.5 H, Total Bilirubin 0.4, AST 61 H, ALT 39, Alkaline Phosphatase 77, Troponin I < 0.01, NT-Pro-B Natriuret Pep 94.8, Total Protein 7.6, Albumin 3.9, Globulin 3.7 H, Albumin/Globulin Ratio 1.1 09/09/24 11:40: Troponin I < 0.01 09/09/24 09:20 09/09/24 09:20 Orders (Tests/Meds): ED MEDICATIONS Discontinued Medications Generic Name Dose Route Start Last Admin Trade Name Jem PRN Reason Stop Dose Admin Acetaminophen 1,000 mg 09/09/24 09:54 09/09/24 10:15 Acetaminophen 500mg Tab PO 09/09/24 09:55 1,000 mg ONCE ONE Administration Albuterol/Ipratropium 3 ml 09/09/24 09:57 09/09/24 10:15 Ipratropium/Albuterol 3 Ml Neb IH 09/09/24 09:58 3 ml ONCE ONE Administration Sodium Chloride 1,000 mls @ 999 mls/hr 09/09/24 09:54 09/09/24 10:14 Sod Chlor 0.9% 1000ml Bag IV 09/09/24 10:54 999 mls/hr .Q1H1M ONE Administration Iopamidol 70 ml 09/09/24 12:30 09/09/24 12:31 Iopamidol-370 (76%);100ml Bottle IV 09/09/24 12:31 70 ml ONCE ONE Administration Oxycodone HCl 5 mg 09/09/24 11:07 09/09/24 11:10 Oxycodone 5mg Immediate Release Tablet PO 09/09/24 11:08 5 mg ONCE ONE Administration Sodium Chloride 50 ml 09/09/24 12:30 09/09/24 12:31 0.9 % Sodium Chloride 50 Ml Vial IV 09/09/24 12:31 50 ml ONCE ONE Administration Sodium Chloride 10 ml 09/09/24 12:30 09/09/24 12:31 Sodium Chloride 0.9% 10ml Syr (Rad Only) IV 09/09/24 12:31 10 ml ONCE ONE Administration ORDERS Category Date Time Status CT angio chest PE protocol Stat Cat Scan 09/09/24 12:15 Completed CXR --portable [XR chest portable] Stat Exams 09/09/24 09:54 Completed BNP [NT Pro Brain Natriuretic Pep.] Stat Lab 09/09/24 09:20 Completed CBC w/Auto Diff [Complete Blood Count Auto Diff] Stat Lab 09/09/24 09:20 Completed CMP [Comprehensive Metabolic Panel] Stat Lab 09/09/24 09:20 Completed D-Dimer Stat Lab 09/09/24 09:20 Completed PT INR [Prothrombin Time INR] Stat Lab 09/09/24 09:20 Completed Trop I [Troponin I] Stat Lab 09/09/24 09:20 Completed Troponin I Q3H Lab 09/09/24 11:40 Completed Medical Decision Narrative: Patient is a 64-year-old male who presented to the emergency department with chest pain. On arrival, patient was hemodynamically stable with unremarkable vital signs. Differential includes but not limited to: ACS/NE, arrhythmia, pneumothorax, pneumonia, pulmonary embolism, amongst others. Patient's labs were reviewed and interpreted by myself, CBC showed no leukocytosis, hemoglobin was stable. CMP was unremarkable. BNP was normal. Initial troponin less than 0.01, second troponin less than 0.01. D-dimer elevated. Chest x-ray was reviewed and interpreted by myself and showed no focal consolidation, pneumothorax, pleural effusion or other acute cardiopulmonary process. CT PE is reviewed and interpreted by myself and showed no acute pathology. EKG was reviewed and interpreted by myself and showed normal sinus rhythm, right bundle branch block, unchanged from prior. At this time, given patient's negative cardiac workup with scheduled cardiology appointment on Tuesday with stable EKG felt the patient was appropriate for discharge home. Patient symptoms have resolved in the emergency department the patient was advised to follow-up with cardiology as scheduled. Return precautions were discussed. Critical Care Critical Care Time Critical Care Time: No
--- OUTSIDE RECORDS SUMMARY | 2024-09-09 10:55 | XMS_ITS | CCD ---
Author Organization Unknown Care Team Providers Care Ship Design Teacher Name Role Phone Unavailable Primary Care Provider Unavailabl e Unavailable Chronic Care Management Unavaila ble Summary Purpose DataExchange Insurance Providers Payer name Policy type / Coverage type Covered green party ID Effective Begin Date Effective End Date [facility] [id number] Unknown Unknown Family History Family History data not found Medication Administered No Medication Administered data Reason For Visit No Reason For Visit data Medical Equipment No Medical Equipment data Advance Directives No Advance Directive data
--- OUTSIDE RECORDS SUMMARY | 2024-09-09 10:55 | XMS_ITS | CCD ---
Author Organization Unknown Care Team Providers Care Cemetery Keeper Name Role Phone Unavailable Primary Care Provider Unavailabl e Unavailable Chronic Care Management Unavaila ble Summary Purpose DataExchange Insurance Providers Payer name Policy type / Coverage type Covered libertarian ID Effective Begin Date Effective End Date [facility] [id number] Unknown Unknown Family History Family History data not found Medication Administered No Medication Administered data Reason For Visit No Reason For Visit data Medical Equipment No Medical Equipment data Advance Directives No Advance Directive data
[2024-09-09] MEDS: OXYCODONE 5MG IMMEDIATE RELEASE TABLET 5 MG PO (11:10)
[2024-09-09 11:37] LABS: RBC Morphology Normal; Total Cells Counted 100
--- NOTE | 2024-09-09 12:15 | CT_ITS ---
PROCEDURE INFORMATION: Exam: CTA Chest With Contrast Exam date and time: 09/09/2024 12:32 PM Age: 64 years old Clinical indication: Other: Chest pain and shortness of breath TECHNIQUE: Imaging protocol: Computed tomographic angiography of the chest with contrast. Exam focused on the arteries. 3D rendering (Not supervised by radiologist): MIP and/or 3D reconstructed images were created by the technologist. Radiation optimization: All CT scans at this facility use at least one of these dose optimization techniques: automated exposure control; mA and/or kV adjustment per patient size (includes targeted exams where dose is matched to clinical indication); or iterative reconstruction. Contrast material: ISO 370; Contrast volume: 70 ml; Contrast route: INTRAVENOUS (IV); COMPARISON: CT ANGIO CHEST PE PROTOCOL 08/28/2024 4:04 PM FINDINGS: Tubes, catheters and devices: Intrathecal catheter partially visualized. Pulmonary arteries: Negative for acute pulmonary embolism. Aorta: Unremarkable. No aortic aneurysm. No aortic dissection. Lungs: Emphysema. No focal consolidation. Scarring or atelectasis right upper lobe. Pleural spaces: Unremarkable. No pneumothorax. No pleural effusion. Heart: Unremarkable. No cardiomegaly. No pericardial effusion. Lymph nodes: Unremarkable. No enlarged lymph nodes. Bones/joints: Unremarkable. No acute fracture. Soft tissues: Unremarkable. IMPRESSION: Negative for acute pulmonary embolism. COMMENTS: The presence of pulmonary emphysema on CT is an independent risk factor for lung cancer. In the absence of a history or active diagnosis of lung cancer, it is recommended that this patient with emphysema be evaluated for enrollment in a low dose CT lung cancer screening program.
[2024-09-09] MEDS: SODIUM CHLORIDE 0.9% 10ML SYR (RAD ONLY) 10 ML IV (12:31)
[2024-09-09] MEDS: 0.9 % SODIUM CHLORIDE 50 ML VIAL IV (12:31)
[2024-09-09] MEDS: IOPAMIDOL-370 (76%);100ML BOTTLE 70 ML IV (12:31)
--- NOTE | 2024-09-09 13:32 | PC.NURSE ---
I rounded on the pt and explained his CT results were back. I informed him would be in to go over his plan of care after completing a procedure. He requested pain meds and a glass of water. I requested something for pain from the [facility]. no other needs voiced. call hale in reach.
[2024-09-09 14:35] LABS: Troponin I < 0.01 ng/ml (0.00-0.034)
[2024-09-09 15:11] LABS: Troponin I < 0.01 ng/ml (0.00-0.034)
== END 2024-09-09 15:23 | disposition home or self-care (01) ==
PROVIDERS: Emergency Provider Student in an Organized Health Care Education/Training Program; PCP Internal Medicine
DX: R07.9 Chest pain, unspecified (principal); I21.01 ST elevation (STEMI) myocardial infarction involving left main coronary artery; E11.9 Type 2 diabetes mellitus without complications; I10 Essential (primary) hypertension; Z87.891 Personal history of nicotine dependence
CPT/HCPCS: 71045; 71275; 80053; 83880; 84484; 85007; 85025; 85027; 85378; 85610; 93005; 96360; 99285; J7030; Q9967

== ENCOUNTER 2024-10-18 14:02 | Observation (INO) | payer MEDICARE, SELFPAY ==
--- OUTSIDE RECORDS SUMMARY | 2024-10-06 14:02 | XMS_ITS | Encounter Summary ---
Author Organization [facility] Address [address] 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 [...] heart attacks. He had stents placed in [place] 6 weeks ago. Prior to that his [...] Family History Reviewed and non-contributory. Father 4-5 NV's and CVA. Over 60 with NV's. Social History Tobacco use: 50+ years 1 [...] in which case lymphocytic interstitial pneumonia or Xssj-Rebo-Itxr syndrome are the most likely cause cysts in this distribution. ASSESSMENT/PLAN Tashi Martin is a 64 y.o. male who initially presented to the [facility] for chest pain, and Cardiology is being [...] ago where he required multiple stents at [facility]. He mentions this was an elective [...] by the attending physician.Please page the on-call sporting goods sales manager ([id number]) with any further questions. I spent 30 [...] 64 y.o male with a PMH of NV w/ stent placement x7, T2DM, COPD, diastolic HF who presented to the ED with chest pain of 2 hours that began suddenly, is diffuse but localized more to the right but has some radiation to the left shoulder and jaw. The patient states this pain does not feel like his prior NV. He states subjective SOA but is oxygenating [...] time. Psychiatric: Mood and Affect: Mood normal. Happy Coma Scale Score: 15 HEART Score: 7 ED Course & MDM - Assessment: 64 y.o. male presents to ED with complaint of chest pain. 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 Take all antibiotics as prescribed. Use all inhalers as prescribed. Please return to ED if your symptoms worsen, change in location, change in severity, new symptoms develop or if you become concerned for your health. Disposition Discharge AVS (Lao Snapshot) - Printed 10/06/2024 [1] No past medical history on file. [2] No past surgical history on file. [3] No family history on file. [4] [5] Allergies Allergen Reactions Gabapentin Swelling Wasp Venom Protein Anaphylaxis Carl Boswell MD Resident 10/06/24 0306 Cosigned by Philippe Boo MD at 10/07/2024 [...] for CP that started about 2 hours DANCE CHOREOGRAPHER, worse after eating. SL 0.4mg Nitroglycerin administered without relief. 324mg ASA administered Per EMS DANCE CHOREOGRAPHER. HX of previous NV with stents placed documented in this encounter [...] Comment 10/06/2024 6:50 PM EDT [facility] Liquor Rectifier ID Paulina Gaspar 10/06/2024 6:50 PM EDT HEALTH[facility]ARE LAB Device ID [id number] 10/06/2024 6:50 PM EDT [facility] Specimen Type POC Capillary 10/06/2024 6:50 PM EDT [facility] Blood Capillary blood specimen / Unknown 10/06/2024 6:49 PM EDT 10/06/2024 6:50 PM EDT Philippe Boo MD LAB POINT OF CARE TE ST DOCKED DEVICE UNSOLICITED RESULTS Final Result [facility] [address] [place] [address] * EKG now - STAT (adult) (10/06/2024 5:56 PM EDT) EKG DIAGNOSIS CLASS Abnormal MUSE ECG Ventricular Rate 72 BPM MUSE ECG Atrial Rate 72 BPM MUSE ECG AZ Interval 170 ms MUSE ECG QRSD Interval 134 ms MUSE ECG QT Interval 460 ms MUSE ECG QTC Interval 503 ms MUSE ECG P Monroe 23 degrees MUSE ECG R Monroe -69 degrees MUSE ECG T Wave [place] -3 degrees MUSE ECG Diagnosis Normal sinus rhythm MUSE ECG Diagnosis Left axis deviation MUSE ECG Diagnosis Right bundle branch block MUSE ECG Diagnosis Abnormal ECG MUSE ECG Diagnosis MUSE ECG Diagnosis Confirmed by Albino Reveles ([id number]) on 10/07/2024 10:14:31 AM MUSE ECG 10/06/2024 5:56 PM EDT 10/07/2024 10:14 AM EDT Philippe Boo MD ECG ORDERABLES Final Result MUSE ECG * Troponin T, High Sensitivity, 2 Hour, Plasma (10/06/2024 5:40 PM EDT) Pathologist [facility] Troponin T, High Sensitivity, 2 Hour 12 <19 ng/L 10/06/2024 6:23 PM EDT [facility] Blood Venous blood specimen / Unknown Venipuncture / Unknown 10/06/2024 5:40 PM EDT 10/06/2024 5:54 PM EDT Donnell Beverly MD LAB BLOOD ORDERABLES Lori l Result [facility] [address] [place] [address] * Anti Xa Level Unfractionated Heparin (10/06/2024 4:17 PM EDT) Anti Xa Level Unfractionated Heparin <0.11 <1.00 IU/mL LAB COAGULATION METHOD 10/06/2024 4:[address] [facility] Blood Venous blood specimen / Unknown Venipuncture / Unknown 10/06/2024 4:17 PM EDT 10/06/2024 4:27 PM EDT Narrative [facility] - 10/06/2024 4:53 PM EDT Therapeutic Range: UFH Full Dose and ACS/NV protocols*: 0.30 - 0.70 IU/mL UFH Low Dose protocol*: 0.25 - 0.50 IU/mL UFH prophylaxis: Not established us Philippe Boo MD LAB BLOOD ORDERABLES Final Res ult [facility] [address] [place] [address] * CT Angio Chest (10/06/2024 3:52 PM EDT) Anatomical Region Laterality Modality Chest Computed Tomogra phy Impressions 10/06/2024 4:43 PM EDT 1. No acute traumatic aortic injury. 2. No acute findings in the chest. 3. Lower lobe predominant cystic change probably represents bullae in the setting of mild emphysema, however cystic lung disease is also possible, in which case lymphocytic interstitial pneumonia or Rxcz-Mzoz-Kpax syndrome are the most likely cause cysts [...] possible,in which case lymphocytic interstitial pneumonia or Tapt-Ypcm-Akfzurcaidex are the most likely cause cysts in [...] 0.21 <=0.27 mmol/L 10/06/2024 4:19 PM EDT [facility] Blood Venous blood specimen / Unknown Venipuncture / Unknown 10/06/2024 3:16 PM EDT 10/06/2024 3:27 PM EDT us Donnell Beverly MD LAB BLOOD ORDERABLES Lori l Result [facility] [address] [place] [address] * PT-INR (10/06/2024 3:16 PM EDT) Prothrombin Time 12.4 12.0 - 14.3 sec LAB COAGULATION METHOD 10/06/2024 3:53 PM EDT [facility] INR 0.9 0.9 - 1.1 LAB COAGULATION METHOD 10/06/2024 3:53 PM EDT [facility] Blood Venous blood specimen / Unknown Venipuncture / Unknown 10/06/2024 3:16 PM EDT 10/06/2024 3:26 PM EDT Narrative [facility] - 10/06/2024 3:53 PM EDT OPTIMAL INR RANGES FOR PATIENT ON ORAL ANTICOAGULANT THERAPY Prevention of venous thromboembolism INR 2.0 to 3.0 In patients with heart disease: Atrial fibrillation INR 2.0 to 3.0 Valvular heart disease INR 2.0 to 3.0 Tissue heart valves INR 2.0 to 3.0 Mechanical prosthetic valves INR 2.5 to 3.5 Prevention of recurrent NV INR 2.5 to 3.5 us Donnell Beverly MD LAB BLOOD ORDERABLES Lori perez Result [facility] [address] [place] [address] * (ABNORMAL) CBC w/diff (10/06/2024 3:16 PM EDT) WBC Count 10.86(H) 3.70 - 10.30 10*3/uL LAB HEMATOLOGY METHOD 10/06/2024 3:34 PM EDT [facility] RBC Count 5.08 4.60 - 6.10 10*6/uL LAB HEMATOLOGY METHOD 10/06/2024 3:34 PM EDT [facility] HGB 15.9 13.7 - 17.5 g/dL LAB HEMATOLOGY METHOD 10/06/2024 3:34 PM EDT [facility] HCT 44.4 40.0 - 51.0 % LAB HEMATOLOGY METHOD 10/06/2024 3:34 PM EDT [facility] Platelet Count 217 155 - 369 10*3/uL LAB HEMATOLOGY METHOD 10/06/2024 3:34 PM EDT [facility] MCV 87 79 - 98 fL LAB HEMATOLOGY METHOD 10/06/2024 3:34 PM EDT [facility] MCH 31.3 26.0 - 32.0 pg LAB HEMATOLOGY METHOD 10/06/2024 3:34 PM EDT [facility] MCHC 35.8(H) 30.7 - 35.5 g/dL LAB HEMATOLOGY METHOD 10/06/2024 3:34 PM EDT [facility] RDW 12.4 11.5 - 14.5 % LAB HEMATOLOGY METHOD 10/06/2024 3:34 PM EDT [facility] MPV 10.4 8.8 - 12.5 fL LAB HEMATOLOGY METHOD 10/06/2024 3:34 PM EDT [facility] nRBC 0.0 <=0.0 per 100 WBCs LAB HEMATOLOGY METHOD 10/06/2024 3:34 PM EDT [facility] Differential Type Automated LAB HEMATOLOGY METHOD 10/06/2024 3:34 PM EDT [facility] Neutrophils % 48 % LAB HEMATOLOGY METHOD 10/06/2024 3:34 PM EDT [facility] Lymphocytes % 41 % LAB HEMATOLOGY METHOD 10/06/2024 3:34 PM EDT [facility] Monocytes % 8 % LAB HEMATOLOGY METHOD 10/06/2024 3:34 PM EDT [facility] Eosinophils % 1 % LAB HEMATOLOGY METHOD 10/06/2024 3:34 PM EDT [facility] Basophils % 1 % LAB HEMATOLOGY METHOD 10/06/2024 3:34 PM EDT [facility] Immature Granulocytes % 1 % LAB HEMATOLOGY METHOD 10/06/2024 3:34 PM EDT [facility] Neutrophils Absolute 5.30 1.60 - 6.10 10*3/uL LAB HEMATOLOGY METHOD 10/06/2024 3:34 PM EDT [facility] Lymphocytes Absolute 4.49(H) 1.20 - 3.90 10*3/uL LAB HEMATOLOGY METHOD 10/06/2024 3:34 PM EDT [facility] Monocytes Absolute 0.81 0.30 - 0.90 10*3/uL LAB HEMATOLOGY METHOD 10/06/2024 3:34 PM EDT [facility] Eosinophils Absolute 0.15 0.00 - 0.50 10*3/uL LAB HEMATOLOGY METHOD 10/06/2024 3:34 PM EDT [facility] Basophils Absolute 0.06 0.00 - 0.10 10*3/uL LAB HEMATOLOGY METHOD 10/06/2024 3:34 PM EDT [facility] Immature Granulocytes Absolute 0.05 0.00 - 0.06 10*3/uL LAB HEMATOLOGY METHOD 10/06/2024 3:34 PM EDT [facility] Blood Venous blood specimen / Unknown Venipuncture / Unknown 10/06/2024 3:16 PM EDT 10/06/2024 3:27 PM EDT Narrative [facility] - 10/06/2024 3:34 PM EDT Therapeutic decision making should be based on absolute values, rather than percentages. us Donnell Beverly MD LAB BLOOD ORDERABLES Lori l Result Performing Organization Address City/[facility]/ZIP Co de Phone Number [facility] [address] [place] [address] * Troponin now and 120 min (10/06/2024 3:16 PM EDT) Troponin T, High Sensitivity, 0 Hour 13 <19 ng/L 10/06/2024 3:[address] [facility] Blood Venous blood specimen / Unknown Venipuncture / Unknown 10/06/2024 3:16 PM EDT 10/06/2024 3:27 PM EDT us Donnell Beverly MD LAB BLOOD ORDERABLES Lori l Result [facility] [address] [place] [address] * BNP (10/06/2024 3:16 PM EDT) N-Terminal, PROBNP, Plasma <50 0 - 899 pg/mL 10/06/2024 3:57 PM EDT [facility] Blood Venous blood specimen / Unknown Venipuncture / Unknown 10/06/2024 3:16 PM EDT 10/06/2024 3:27 PM EDT us Donnell Beverly MD LAB BLOOD ORDERABLES Lori perez Result [facility] [address] [place] [address] * (ABNORMAL) Blood gas panel, venous (10/06/2024 3:16 PM EDT) pH, Venous 7.40 7.32 - 7.43 LAB HEMATOLOGY METHOD 10/06/2024 3:30 PM EDT [facility] pCO2, Venous 39(L) 40 - 55 mmHg LAB HEMATOLOGY METHOD 10/06/2024 3:30 PM EDT [facility] pO2, Venous 72(H) 25 - 40 mmHg LAB HEMATOLOGY METHOD 10/06/2024 3:30 PM EDT [facility] SO2, Measured, Venous 95(H) 65 - 80 % LAB HEMATOLOGY METHOD 10/06/2024 3:30 PM EDT [facility] Base Excess, Venous -0.6 -2.0 - 3.0 mmol/L LAB HEMATOLOGY METHOD 10/06/2024 3:30 PM EDT [facility] Bicarbonate, Calculated, Venous 24 22 - 26 mmol/L LAB HEMATOLOGY METHOD 10/06/2024 3:30 PM EDT [facility] Hematocrit, Whole Blood 49.1 40.0 - 51.0 % LAB HEMATOLOGY METHOD 10/06/2024 3:30 PM EDT [facility] Sodium, Whole Blood 132(L) 136 - 145 mmol/L LAB HEMATOLOGY METHOD 10/06/2024 3:30 PM EDT [facility] Potassium, Whole Blood 4.1 3.6 - 4.9 mmol/L LAB HEMATOLOGY METHOD 10/06/2024 3:30 PM EDT [facility] Chloride, Whole Blood 98 97 - 107 mmol/L LAB HEMATOLOGY METHOD 10/06/2024 3:30 PM EDT [facility] Glucose, Whole Blood 437(H) 74 - 99 mg/dL LAB HEMATOLOGY METHOD 10/06/2024 3:30 PM EDT [facility] Lactate, Venous, Whole Blood 2.4(H) 0.5 - 2.2 mmol/L LAB HEMATOLOGY METHOD 10/06/2024 3:30 PM EDT [facility] Ionized Calcium, Whole Blood 5.4(H) 4.6 - 5.1 mg/dL LAB HEMATOLOGY METHOD 10/06/2024 3:30 PM EDT [facility] Blood Venous blood specimen / Unknown Venipuncture / Unknown 10/06/2024 3:16 PM EDT 10/06/2024 3:28 PM EDT Donnell Beverly MD LAB BLOOD ORDERABLES Lori l Result [facility] [address] [place] [address] * Phosphorus (10/06/2024 3:16 PM EDT) Phosphorus, Plasma 4.1 2.5 - 4.5 mg/dL 10/06/2024 3:57 PM EDT [facility] Blood Venous blood specimen / Unknown Venipuncture / Unknown 10/06/2024 3:16 PM EDT 10/06/2024 3:27 PM EDT Donnell Beverly MD LAB BLOOD ORDERABLES Lori l Result Performing Organization Address City/[facility]/ZIP Co de Phone Number [facility] [address] [place] [address] * (ABNORMAL) Magnesium (10/06/2024 3:16 PM EDT) Magnesium, Plasma 1.8(L) 1.9 - 2.4 mg/dL 10/06/2024 3:57 PM EDT [facility] Blood Venous blood specimen / Unknown Venipuncture / Unknown 10/06/2024 3:16 PM EDT 10/06/2024 3:27 PM EDT Donnell Beverly MD LAB BLOOD ORDERABLES Lori l Result Performing Organization Address City/[facility]/ZIP Co de Phone Number [facility] [address] [place] [address] * (ABNORMAL) CMP (10/06/2024 3:16 PM EDT) Glucose, Plasma 446(H) 74 - 99 mg/dL 10/06/2024 3:57 PM EDT [facility] BUN, Plasma 15 8 - 23 mg/dL 10/06/2024 3:57 PM EDT [facility] Creatinine, Plasma 0.82 0.70 - 1.20 mg/dL 10/06/2024 3:57 PM EDT [facility] BUN/Creatinine Ratio 18 10/06/2024 3:57 PM EDT [facility] Sodium, Plasma 131(L) 136 - 145 mmol/L 10/06/2024 3:57 PM EDT [facility] Potassium, Plasma 4.3 3.6 - 4.9 mmol/L 10/06/2024 3:57 PM EDT [facility] Chloride, Plasma 95(L) 97 - 107 mmol/L 10/06/2024 3:57 PM EDT [facility] CO2, Plasma 21(L) 22 - 29 mmol/L 10/06/2024 3:57 PM EDT [facility] Anion Gap 15 6 - 16 mmol/L 10/06/2024 3:57 PM EDT [facility] Total Calcium, Plasma 10.4(H) 8.9 - 10.2 mg/dL 10/06/2024 3:57 PM EDT [facility] Total Protein 6.8 6.3 - 7.9 g/dL 10/06/2024 3:57 PM EDT [facility] Albumin, Plasma 4.1 3.5 - 5.2 g/dL 10/06/2024 3:57 PM EDT [facility] AST, Plasma 31 10 - 50 U/L 10/06/2024 3:57 PM EDT [facility] Comment:Hemolyzed, result ma y be falsely increased. ALT, Plasma 29 10 - 50 U/L 10/06/2024 3:57 PM EDT [facility] Alkaline Phosphatase, Plasma 99 40 - 115 U/L 10/06/2024 3:57 PM EDT [facility] Total Bilirubin, Plasma 0.4 0.2 - 1.1 mg/dL 10/06/2024 3:57 PM EDT [facility] eGFRcr 96.9 mL/min/1.7 3m*2 10/06/2024 3:57 PM EDT [facility] Comment:Reported eGFRcr in m L/min/1.73m2 is based the CKD-EPI 2020 equation that does not use a race coefficient. Blood Venous blood specimen / Unknown Venipuncture / Unknown 10/06/2024 3:16 PM EDT 10/06/2024 3:27 PM EDT Donnell Beverly MD LAB BLOOD ORDERABLES Lori perez Result [facility] [address] [place] [address] * XR Chest 1 View (10/06/2024 3:12 [...] culture not indicated 10/07/2024 12:01 AM EDT [facility] Comment: Previously prelim verified as [...] MD LAB URINE ORDERABLES Lori l Result [facility] [address] [place] [address] * (ABNORMAL) Urinalysis with reflex microscopic (Culture NOT Included) (10/06/2024 3:06 PM EDT) Color, Urine Yellow LAB URINALYSIS - AUTOMATED METHOD 10/06/2024 3:25 PM EDT [facility] Clarity, Urine Clear LAB URINALYSIS - AUTOMATED METHOD 10/06/2024 3:25 PM EDT [facility] Spec [place], Urine >1.030(H) 1.005 - 1.030 LAB URINALYSIS - AUTOMATED METHOD 10/06/2024 3:25 PM EDT [facility] pH, Urine 6.0 5.0 - 8.0 LAB URINALYSIS - AUTOMATED METHOD 10/06/2024 3:25 PM EDT [facility] Protein, Urine Negative Negative mg/dL LAB URINALYSIS - AUTOMATED METHOD 10/06/2024 3:25 PM EDT [facility] Glucose, Urine >=1000(A) Negative mg/dL LAB URINALYSIS - AUTOMATED METHOD 10/06/2024 3:25 PM EDT [facility] Ketones, Urine Negative Negative mg/dL LAB URINALYSIS - AUTOMATED METHOD 10/06/2024 3:25 PM EDT [facility] Blood, Urine Negative Negative LAB URINALYSIS - AUTOMATED METHOD 10/06/2024 3:25 PM EDT [facility] Bilirubin, Urine Negative Negative LAB URINALYSIS - AUTOMATED METHOD 10/06/2024 3:25 PM EDT [facility] Urobilinogen, Urine 0.2 0.2 to 1.0 mg/dL LAB URINALYSIS - AUTOMATED METHOD 10/06/2024 3:25 PM EDT [facility] Leukocytes, Urine Negative Negative LAB URINALYSIS - AUTOMATED METHOD 10/06/2024 3:25 PM EDT [facility] Nitrite, Urine Negative Negative LAB URINALYSIS - AUTOMATED METHOD 10/06/2024 3:25 PM EDT [facility] Urine Urine specimen obtained by clean catch procedure / Unknown Non-blood Collection / Unknown 10/06/2024 3:06 PM EDT 10/06/2024 3:19 PM EDT Donnell Beverly MD LAB URINE ORDERABLES Lori l Result [facility] [address] [place] [address] * (ABNORMAL) POCT glucose meter (10/06/2024 2:17 [...] Comment 10/06/2024 2:18 PM EDT [facility] Liquor Rectifier ID Paulina Gaspar 10/06/2024 2:18 PM EDT [facility] Device ID [id number] 10/06/2024 2:18 PM EDT [facility] Specimen Type POC Capillary 10/06/2024 2:18 PM EDT [facility] Blood Capillary blood specimen / Unknown 10/06/2024 2:17 PM EDT 10/06/2024 2:18 PM EDT us Generic Provider Poct LAB POINT OF CARE TEST DOCKED DEVICE UNSOLICITED RESULTS Final Result Performing Organization Address City/[facility]/ZIP Co de Phone Number [facility] [address] [place] [address] * EKG now - STAT (adult) (10/06/2024 2:13 PM EDT) EKG DIAGNOSIS CLASS Abnormal MUSE ECG Ventricular Rate 77 BPM MUSE ECG Atrial Rate 77 BPM MUSE ECG AZ Interval 176 ms MUSE ECG QRSD Interval 144 ms MUSE ECG QT Interval 428 ms MUSE ECG QTC Interval 484 ms MUSE ECG P Monroe 27 degrees MUSE ECG R [place] -72 degrees MUSE ECG T Wave [place] 43 degrees MUSE ECG Diagnosis Sinus rhythm [...] MUSE ECG Diagnosis Confirmed by Albino Reveles ([id number]) on 10/07/2024 10:01:25 AM MUSE ECG 10/06/2024 [...] Huitron) documented in this encounter Care Teams Cnc Field Service Engineer Relationship Specialty Start Date End Date Efrem Lauren DO [address] [place] [address] [place] [id number] PCP - General 10/06/24 documented as of this encounter
[2024-10-18] VITALS (17 sets, daily range): BP systolic 90–127; BP diastolic 55–81; PULSE 58–88; RESP 12–20; TEMP 36.8–37.1; O2SAT 88–97; BMI 28.0
--- NOTE | 2024-10-18 14:03 | ECG_ITS ---
APPROVED REPORT Exam: Resting ECG HR:68 bpm ECG Measurements Heart Rate 68 AXES WV 166 P 7 QRSd 132 QRS -65 QT 393 T -27 QTc 410 Conclusion Sinus rhythm Left axis Right bundle branch block Inferior T wave inversions T wave inversions in leads V3 through V6 No STEMI Unchanged from prior Electronically signed by : Domingo Dugan, 10/18/2024 23:40:20
[2024-10-18 14:20] LABS: POC Glucose,Bedside 420 gm/dL (70-110)
--- NOTE | 2024-10-18 14:28 | XR_ITS ---
FINAL REPORT CLINICAL HISTORY: short of breath COMPARISON: 09/04/2024 FINDINGS: A portable view of the chest was obtained. Mild cardiomegaly is unchanged from prior. Patient is status post median sternotomy. Bibasilar opacities could be atelectasis, pneumonia is less likely. There is no pleural effusion or pneumothorax. IMPRESSION: Bibasilar opacities, may represent atelectasis Reviewed, Interpreted and Dictated by Di Carney MD Transcribed by Suni Pedro Authenticated and [facility]
--- NOTE | 2024-10-18 14:37 | ED_ITS ---
<Statement entered by Domingo Dugan DO - 10/18/24 23:57> I was consulted by the SRUTHI, and we discussed the complexity of problems being addressed. I approved the treatment and management plan for this patient's care in the emergency department, thus performing a substantive portion of the medical decision making. This gentleman presented to the emergency department with chest pain and hyperglycemia. Labs were not consistent with diabetic ketoacidosis. We were able to reduce his sugars with 2 L of saline. He had persistent chest pain throughout the emergency department stay despite 2 negative troponins. I did speak with Dr. Ewing about our concerns of unstable angina and he agreed that this story was very suspicious and as is to admit the patient to hospital medicine for further cardiac workup. Domingo Dugan DO Discharge Plan Disposition Chief Complaint: Weakness Prescriptions Prescriptions: No Action Jardiance 25 mg tablet 25 mg PO DAILY Qty: 30 2RF omeprazole 40 mg capsule,delayed release(DR/EC) 40 mg PO DAILY Qty: 90 3RF Rx Instructions: Take on empty stomach daily. ranolazine 1,000 mg tablet extended release 12 hr PO ONCE Patient Comments: TAKE ONE TABLET BY MOUTH TWICE DAILY (DME) Profound G7 Sensor Device See Rx Instructions .ROUTE .MEDSUPPLY Qty: 1 Rx Instructions: As directed metoprolol succinate 25 mg tablet extended release 24 hr 25 mg PO DAILY Qty: 30 3RF (DME) Accu-Chek Guide test strips Strip MISCELLANEOUS (DME) lancets [Accu-Chek Softclix Lancets] Misc MISCELLANEOUS midodrine 5 mg tablet 5 mg PO DAILY Patient Comments: pt states that he only takes med at bedtime nitroglycerin 0.4 mg tablet, sublingual 0.4 mg sublingual Q5MINP PRN (Reason: Chest Pain) rosuvastatin 40 mg tablet 40 mg PO HS duloxetine 30 mg capsule,delayed release(DR/EC) 30 mg PO DAILY pregabalin 25 mg capsule 25 mg PO BID prasugrel HCl [Effient] 10 mg Tablet 10 mg PO DAILY 30 Days Qty: 30 6RF aspirin 81 mg Capsule 81 mg PO DAILY 30 Days Qty: 30 6RF Referrals Follow up/Referrals: Provider,Referral, [Referring, Medical] - See instructions Courtney Montero MD [Staff Physician, Endocrinology] - See instructions Referral Note: uncontrolled diabetes Print Language Print Language: Bahraini Discharge ED Provider: Domingo Dugan General Adult HPI <Devora Craven (ED), FIRE CONTROL TECHNICIAN - Last Filed: 10/18/24 19:05> General Chief complaint: Weakness Stated complaint: Weakness, Feeling faint Time Seen by Provider: 10/18/24 14:19 Mode of Arrival: Wheelchair Source of Information: Patient Description of Symptoms (Recalled from ER Triage Doc. by RN): pt was at podiatry office and became weak and clammy with some off and on chest pain, pt has hx of stents History of Present Illness HPI narrative: 64-year-old male presents to the ED today for complaint of becoming weak, clammy and some intermittent chest pain. Patient does have history of stents. He does have some cough that is also intermittent. Patient is very thirsty. He took his glucose and it was 420 on arrival to the emergency department. He takes Jardiance 25 mg for glucose and insulin as needed. He states he has had no insulin today. He typically will take 40 to 50 units at a time. Patient has history of pneumo, CAD, thrombophlebitis, BPH, reflux, diabetes, hypertension and hyperlipidemia. Related Data Home Medications ?Medication ?Instructions ?Recorded ?Confirmed blood sugar diagnostic (Accu-Chek 01/17/24 10/18/24 Guide test strips) lancets (Accu-Chek Softclix 01/17/24 10/18/24 Lancets) duloxetine 30 mg capsule,delayed 30 mg PO DAILY 10/18/24 release midodrine 5 mg tablet 5 mg PO DAILY 05/17/2410/18 nitroglycerin 0.4 mg sublingual 0.4 mg sublingual Q5MI DIRECTOR OF OUTREACH PRN Chest 05/17/24 10/18/24 tablet Pain pregabalin 25 mg capsule 25 mg PO BID 05/17/24 rosuvastatin 40 mg tablet 40 mg PO HS 05/17/24 5 blood-glucose sensor (Dexcom G7 #1 ea 08/02/24 5 Sensor device) ranolazine 1,000 mg mg PO ONCE 10/18/24 10/18/24 tablet,extended release,12 hr Previous Rx's ?Medication ?Instructions ?Recorded aspirin 81 mg capsule 81 mg PO DAILY 30 days #30 c aps 08/28/24 prasugrel HCl 10 mg tablet 10 mg PO DAILY 30 days #30 tabs 08/28/24 (Effient) metoprolol succinate 25 mg 25 mg PO DAILY #30 tabs tablet,extended release 24 hr empagliflozin 25 mg tablet 25 mg PO DAILY #30 tabs 03/03 (Jardiance) omeprazole 40 mg capsule,delayed 40 mg PO DAILY #90 ca ps 09/07/24 release Allergies Allergy/AdvReac Type Severity Reaction Status Date / Time bee venom protein (honey bee) Allergy Anaphylaxis Verified 10/18/24 13:27 gabapentin Allergy Anaphylaxis Verified 10/18/24 13:27 insect venom Allergy Anaphylaxis Verified 10/18/24 13:27 [facility] <Devora Craven (ED), FIRE CONTROL TECHNICIAN - Last Filed: 10/18/24 19:05> [facility] Disclaimer: The information contained in this section may have been updated after the patient was seen, as this information can be updated by other users. Medical History Angina pectoris Coronary arteritis Leukocytosis Cystic-bullous disease of lung Abnormal electrocardiogram [ECG] [EKG] Coronary artery disease Enlarged prostate Dizziness Syncope Cystic lung, congenital History of pneumothorax Atrial fibrillation and flutter Presence of stent in LAD coronary artery Pericardial effusion without cardiac tamponade PNA (pneumonia) Diabetes GERD (gastroesophageal reflux disease) Pericarditis Angina at rest History of heart attack Hyperlipidemia Palpitations Hypertension Heart murmur Arrhythmia History of left heart catheterization (LHC) RBBB (right bundle branch block with left anterior fascicular block) Surgical History History of cardiac cath Hx of heart artery stent Previous back surgery Family History Other Family history of COPD (chronic obstructive pulmonary disease) Family history of hyperlipidemia Family history of hypertension Family history of myocardial infarction Family history of stroke Lung cancer Social History Smoking Status: Former smoker tobacco type: cigarettes packs per day: 1 pack- years: 52 alcohol intake: former current occupational status: previously employed and disabled Travel in the last 8 weeks?: None Have you lived/traveled outside [place] in past 30 days?: No Contact w/someone who lives/traveled outside US past 30 days?: No Exposure to someone with infectious disease in past 14 days?: No Do you have a fever (greater than 100.4 F or 38 C)?: No Have you tested positive for COVID-19?: No Exposed to someone with COVID-19 in past 14 days?: No Do you have a sore throat?: No Do you have a cough?: No Do you have any weakness?: No Do you have any diarrhea?: No Are you experiencing any unusual bleeding?: No Do you have any muscle aches/pain?: No Do you have any abdominal pain?: No Are you experiencing loss of taste or smell?: No Other Medical History Have you received the Flu Vaccine for this season: No Have you received the Pneumonia Vaccine: Yes <Devora Craven (ED), FIRE CONTROL TECHNICIAN - Last Filed: 10/18/24 19:05> ROS Obtained: Yes Systems reviewed as appropriate & no additional complaints except as documented Constitutional Constitutional: Reports as per HPI Physical Exam <Devora Craven (ED), FIRE CONTROL TECHNICIAN - Last Filed: 10/18/24 19:05> General General appearance: alert Head Head exam: normocephalic Eye Eye exam: Present PERRL and EOMI ENT ENT exam: Present normal oropharynx and mucous membranes dry Neck Neck exam: Present full ROM and trachea midline Respiratory Respiratory exam: Present normal lung sounds bilaterally Cardiovascular Cardiovascular exam: Present normal rhythm, normal heart sounds, +S1 and +S2 Abdominal Exam Abdominal exam: Present soft and normal bowel sounds Extremities Exam Extremities exam: Present full ROM and normal capillary refill Neurological Exam Neurological exam: Present alert and oriented X3 Skin Skin exam: Present warm and dry Medical Decision Making <Devora Craven (ED), FIRE CONTROL TECHNICIAN - Last Filed: 10/18/24 19:05> Medical Records Screening: Per USPSTF and CDC recommendations, given the prevalence of disease in our region, it is our hospital?s policy to screen for HIV and viral Hepatitis for all patients aged 18 and over and those with ongoing risk factors. Moshe Inquiry Pt receiving controlled substance: No Moshe was queried for this patient: No Vital Signs: 10/18/24 14:02 10/18/24 14:37 10/18/24 15:00 Temperature 98.7 F Temperature Source Oral Pulse Rate 64 58 L Pulse Rate [Left Brachial] 69 Respiratory Rate 20 20 20 Blood Pressure 121/80 121/76 Blood Pressure [Right Arm] 110/64 Blood Pressure Mean [Right Arm] 79 02 Sat by Pulse Oximetry 95 94 L 93 L Oxygen Delivery Method Room Air 10/18/24 15:30 10/18/24 16:00 Temperature Temperature Source Pulse Rate 67 66 Pulse Rate [Left Brachial] Respiratory Rate 18 17 Blood Pressure 122/73 125/77 Blood Pressure [Right Arm] Blood Pressure Mean [Right Arm] 02 Sat by Pulse Oximetry 97 97 Oxygen Delivery Method Lab Data Lab Results 10/18/24 14:13: POC Glucose 420 H* 10/18/24 14:35: WBC 8.0, RBC 4.90, Hgb 15.2, Hct 44.3, MCV 90.4, MCH 31.0, MCHC 34.3, RDW 12.7, Plt Count 223, MPV 10.6 H, Neut % (Auto) 46.8, Lymph % (Auto) 42.2, Yell % (Auto) 7.2, Eos % (Auto) 2.5, Baso % (Auto) 0.8, Neut # (Auto) 3.7, Lymph # (Auto) 3.4, Yell # (Auto) 0.6, Eos # (Auto) 0.2, Baso # (Auto) 0.1, D- Dimer 0.93 H, Sodium 137, Potassium 4.9, Chloride 108 H, Carbon Dioxide 23, Anion Gap 10.9, BUN 17, Creatinine 0.90, Estimated Creat Clear 97, Estimated GFR 84, Est GFR ( Amer) 102, Glucose 374 H, Hemoglobin A1c 10.3 H D, Calcium 9.5, Magnesium 1.8, Total Bilirubin 0.4, AST 57, ALT 43, Alkaline Phosphatase 78, Troponin I < 0.01, NT-Pro-B Natriuret Pep 101, Total Protein 7.0, Albumin 4.2, Globulin 2.8, Albumin/Globulin Ratio 1.5, Lipase 133, Acetone Level None detected 10/18/24 14:43: VBG pH 7.35, VBG pCO2 43.3, VBG pO2 50.9 H, VBG HCO3 23.5, VBG Total CO2 24.9, VBG O2 Saturation 86.2 H, VBG Base Excess -2.0, VBG Lactic Acid 2.2 H 10/18/24 14:45: Urine Opiates Screen Negative, Urine Methadone Screen Negative, Ur Barbituates Screen Negative, Ur Phencyclidine Scrn Negative, Ur Amphetamines Screen Negative, U Benzodiazepines Scrn Negative, Urine Cocaine Screen Negative, U Marijuana (THC) Screen Negative 10/18/24 14:50: Urine Color Yellow, Urine Appearance Clear, Urine pH 5.5, Ur Specific [place] 1.010, Urine Protein Negative, Urine Glucose (UA) 3+, Urine Ketones Negative, Urine Blood Negative, Urine Nitrate Negative, Urine Bilirubin Negative, Urine Urobilinogen 0.2, Ur Leukocyte Esterase Negative, Urine RBC Occasional, Urine WBC Occasional, Amorphous Sediment Trace, Urine Bacteria Trace, SARS-CoV-2 (PCR) Not detected, Influenza A Untype (PCR) Not detected, Influenza Type B (PCR) Not detected 10/18/24 17:44: POC Glucose 179 H 10/18/24 18:10: Troponin I < 0.01 10/18/24 14:35 10/18/24 14:35 Orders (Tests/Meds): ED MEDICATIONS Generic Name Dose Route Start Last Admin Trade Name Freq PRN Reason Stop Dose Admin Pantoprazole Sodium 80 mg/ 100 mls @ 100 mls/hr 10/18/24 19:04 Sodium Chloride IV 10/18/24 20:03 ONCE ONE Discontinued Medications Generic Name Dose Route Start Last Admin Trade Name Freq PRN Reason Stop Dose Admin Acetaminophen 1,000 mg 10/18/24 18:06 10/18/24 18:21 Acetaminophen 1,000mg/100ml Vial IV 10/18/24 18:07 1,000 mg ONCE ONE Administration Belladonna Alkaloids 60 ml 10/18/24 18:42 10/18/24 18:50 Belladonna Alkaloids 60 Ml Ml PO 10/18/24 18:43 60 ml ONCE ONE Administration Sodium Chloride 1,000 mls @ 999 mls/hr 10/18/24 14:27 10/18/24 16:55 Sod Chlor 0.9% 1000ml Bag IV 10/18/24 15:27 Infused .Q1H1M ONE Infusion Sodium Chloride 1,000 mls @ 999 mls/hr 10/18/24 14:59 10/18/24 16:55 Sod Chlor 0.9% 1000ml Bag IV 10/18/24 15:59 Infused .Q1H1M ONE Infusion Iopamidol 85 ml 10/18/24 16:37 10/18/24 16:39 Iopamidol-370 (76%);100ml Bottle IV 10/18/24 16:38 85 ml ONCE ONE Administration Ketorolac Tromethamine 30 mg 10/18/24 18:06 10/18/24 18:20 Ketorolac 30mg/Ml Vial IV 10/18/24 18:07 30 mg ONCE ONE Administration Morphine Sulfate 2 mg 10/18/24 16:30 10/18/24 16:54 Morphine 2mg/Ml Syringe IV 10/18/24 16:31 2 mg ONCE ONE Administration Ondansetron HCl 4 mg 10/18/24 16:31 10/18/24 16:51 Ondansetron 4mg/2ml Vial IV 10/18/24 16:32 4 mg ONCE ONE Administration Sodium Chloride 10 ml 10/18/24 16:37 10/18/24 16:39 Sodium Chloride 0.9% 10ml Syr (Rad Only) IV 10/18/24 16:38 10 ml ONCE ONE Administration Sodium Chloride 50 ml 10/18/24 16:37 10/18/24 16:39 0.9 % Sodium Chloride 50 Ml Vial IV 10/18/24 16:38 50 ml ONCE ONE Administration ORDERS Category Date Time Status CTA Chest [CT angio chest PE protocol] Stat Cat Scan 10/18/24 16:17 Completed Chest XR -- portable [XR chest portable] Stat Exams 10/18/24 14:28 Completed Acetone, Serum (Rapid) Stat Lab 10/18/24 14:35 Completed BNP [NT Pro Brain Natriuretic Pep.] Stat Lab 10/18/24 14:35 Completed CBC [Complete Blood Count Auto Diff] Stat Lab 10/18/24 14:35 Completed Comprehensive Metabolic Panel Stat Lab 10/18/24 14:35 Completed D-Dimer Stat Lab 10/18/24 14:35 Completed Drug Screen,Urine Stat Lab 10/18/24 14:45 Completed Hemoglobin A1C Stat Lab 10/18/24 14:35 Completed Lactate Venous Stat Lab 10/18/24 14:43 Ordered Lipase Stat Lab 10/18/24 14:35 Completed Magnesium Stat Lab 10/18/24 14:35 Completed Osmolality Stat Lab 10/18/24 14:35 Received POC Glucose,Bedside Routine Lab 10/18/24 14:13 Completed POC Glucose,Bedside Routine Lab 10/18/24 17:44 Completed Rapid PCR Covid and Flu A/B Stat Lab 10/18/24 14:50 Completed Trop I [Troponin I] Stat Lab 10/18/24 14:35 Completed Troponin I Q3H Lab 10/18/24 18:10 Completed Troponin I Q3H Lab 10/18/24 20:30 Ordered Urinalysis and Microscopic Stat Lab 10/18/24 14:50 Completed Venous Blood Gas Stat RT 10/18/24 14:43 Completed HEART Score History (anamnesis): Slightly suspicious ECG: Non-specific disturbance Age: >65 years Risk factors: 3 or more risk factors Troponin: </= normal limit HEART Score: 5 Medical Decision Narrative: patient is a 64-year-old male presenting to the emergency department for evaluation of thirsty, headache, chest pain, weakness and glucose of 420. Patient is hemodynamically stable and nontoxic-appearing upon arrival, afebrile. Differential diagnosis includes ACS, DKA, viral illness, among others. Workup will be conducted with hematologic labs, specific imaging. Initial inventions include crystalloid bolus, analgesics. Initial workup reviewed by me hematologic labs are remarkable for glucose 374. Troponins negative. Dimer was 0.93 lactic acid was 2.2, patient was given 2 L of IV fluids to get his sugar from 420-179 at 1750. Patient's EKGs for recorded above. I did have concern for patient's chest pain and EKG abnormality but discussed with Dr. Dugan who had a little concern over the EKG. Discussed with patient how he felt again and he said the pain medicine helped his pain in his chest some but he says he continues to have a bit of a headache and feel unwell overall. His blood sugar had gone down to 170s after 2 L of IV fluid but he just still feels slightly unwell. CT scan showed esophagitis. This could be cause for the chest discomfort as well. The excessive thirst can be explained by the elevated glucose. Discussed patient with Dr. Ewing, heart score is high, patient has had CAD, A-fib, ACS in the past, he does have stents some hypotension, continued chest pain throughout ER visit, esophagitis on CT scan, he does have a stent in his LAD, so Gildardo wants to put patient in the hospital and he will evaluate him tomorrow. Talk to hospitalist team and he wants me to give Protonix for now. The second shift hospitalist will come down and talk to provider inpatient. <Domingo De Oliveiraony, DO - Last Filed: 10/18/24 18:25> Medical Records Medical records reviewed: Yes I reviewed the patient's medical records. Vital Signs: 10/18/24 14:02 10/18/24 14:37 10/18/24 15:00 Temperature 98.7 F Temperature Source Oral Pulse Rate 64 58 L Pulse Rate [Left Brachial] 69 Respiratory Rate 20 20 20 Blood Pressure 121/80 121/76 Blood Pressure [Right Arm] 110/64 Blood Pressure Mean [Right Arm] 79 02 Sat by Pulse Oximetry 95 94 L 93 L Oxygen Delivery Method Room Air 10/18/24 15:30 10/18/24 16:00 Temperature Temperature Source Pulse Rate 67 66 Pulse Rate [Left Brachial] Respiratory Rate 18 17 Blood Pressure 122/73 125/77 Blood Pressure [Right Arm] Blood Pressure Mean [Right Arm] 02 Sat by Pulse Oximetry 97 97 Oxygen Delivery Method Lab Data Lab Results 10/18/24 14:13: POC Glucose 420 H* 10/18/24 14:35: WBC 8.0, RBC 4.90, Hgb 15.2, Hct 44.3, MCV 90.4, MCH 31.0, MCHC 34.3, RDW 12.7, Plt Count 223, MPV 10.6 H, Neut % (Auto) 46.8, Lymph % (Auto) 42.2, Yell % (Auto) 7.2, Eos % (Auto) 2.5, Baso % (Auto) 0.8, Neut # (Auto) 3.7, Lymph # (Auto) 3.4, Yell # (Auto) 0.6, Eos # (Auto) 0.2, Baso # (Auto) 0.1, D- Dimer 0.93 H, Sodium 137, Potassium 4.9, Chloride 108 H, Carbon Dioxide 23, Anion Gap 10.9, BUN 17, Creatinine 0.90, Estimated Creat Clear 97, Estimated GFR 84, Est GFR ( Amer) 102, Glucose 374 H, Hemoglobin A1c 10.3 H D, Calcium 9.5, Magnesium 1.8, Total Bilirubin 0.4, AST 57, ALT 43, Alkaline Phosphatase 78, Troponin I < 0.01, NT-Pro-B Natriuret Pep 101, Total Protein 7.0, Albumin 4.2, Globulin 2.8, Albumin/Globulin Ratio 1.5, Lipase 133, Acetone Level None detected 10/18/24 14:43: VBG pH 7.35, VBG pCO2 43.3, VBG pO2 50.9 H, VBG HCO3 23.5, VBG Total CO2 24.9, VBG O2 Saturation 86.2 H, VBG Base Excess -2.0, VBG Lactic Acid 2.2 H 10/18/24 14:45: Urine Opiates Screen Negative, Urine Methadone Screen Negative, Ur Barbituates Screen Negative, Ur Phencyclidine Scrn Negative, Ur Amphetamines Screen Negative, U Benzodiazepines Scrn Negative, Urine Cocaine Screen Negative, U Marijuana (THC) Screen Negative 10/18/24 14:50: Urine Color Yellow, Urine Appearance Clear, Urine pH 5.5, Ur Specific [place] 1.010, Urine Protein Negative, Urine Glucose (UA) 3+, Urine Ketones Negative, Urine Blood Negative, Urine Nitrate Negative, Urine Bilirubin Negative, Urine Urobilinogen 0.2, Ur Leukocyte Esterase Negative, Urine RBC Occasional, Urine WBC Occasional, Amorphous Sediment Trace, Urine Bacteria Trace, SARS-CoV-2 (PCR) Not detected, Influenza A Untype (PCR) Not detected, Influenza Type B (PCR) Not detected 10/18/24 17:44: POC Glucose 179 H 10/18/24 18:10: Troponin I < 0.01 Orders (Tests/Meds): ED MEDICATIONS Generic Name Dose Route Start Last Admin Trade Name Freq PRN Reason Stop Dose Admin Pantoprazole Sodium 80 mg/ 100 mls @ 100 mls/hr 10/18/24 19:04 Sodium Chloride IV 10/18/24 20:03 ONCE ONE Discontinued Medications Generic Name Dose Route Start Last Admin Trade Name Freq PRN Reason Stop Dose Admin Acetaminophen 1,000 mg 10/18/24 18:06 10/18/24 18:21 Acetaminophen 1,000mg/100ml Vial IV 10/18/24 18:07 1,000 mg ONCE ONE Administration Belladonna Alkaloids 60 ml 10/18/24 18:42 10/18/24 18:50 Belladonna Alkaloids 60 Ml Ml PO 10/18/24 18:43 60 ml ONCE ONE Administration Sodium Chloride 1,000 mls @ 999 mls/hr 10/18/24 14:27 10/18/24 16:55 Sod Chlor 0.9% 1000ml Bag IV 10/18/24 15:27 Infused .Q1H1M ONE Infusion Sodium Chloride 1,000 mls @ 999 mls/hr 10/18/24 14:59 10/18/24 16:55 Sod Chlor 0.9% 1000ml Bag IV 10/18/24 15:59 Infused .Q1H1M ONE Infusion Iopamidol 85 ml 10/18/24 16:37 10/18/24 16:39 Iopamidol-370 (76%);100ml Bottle IV 10/18/24 16:38 85 ml ONCE ONE Administration Ketorolac Tromethamine 30 mg 10/18/24 18:06 10/18/24 18:20 Ketorolac 30mg/Ml Vial IV 10/18/24 18:07 30 mg ONCE ONE Administration Morphine Sulfate 2 mg 10/18/24 16:30 10/18/24 16:54 Morphine 2mg/Ml Syringe IV 10/18/24 16:31 2 mg ONCE ONE Administration Ondansetron HCl 4 mg 10/18/24 16:31 10/18/24 16:51 Ondansetron 4mg/2ml Vial IV 10/18/24 16:32 4 mg ONCE ONE Administration Sodium Chloride 10 ml 10/18/24 16:37 10/18/24 16:39 Sodium Chloride 0.9% 10ml Syr (Rad Only) IV 10/18/24 16:38 10 ml ONCE ONE Administration Sodium Chloride 50 ml 10/18/24 16:37 10/18/24 16:39 0.9 % Sodium Chloride 50 Ml Vial IV 10/18/24 16:38 50 ml ONCE ONE Administration ORDERS Category Date Time Status CTA Chest [CT angio chest PE protocol] Stat Cat Scan 10/18/24 16:17 Completed Chest XR -- portable [XR chest portable] Stat Exams 10/18/24 14:28 Completed Acetone, Serum (Rapid) Stat Lab 10/18/24 14:35 Completed BNP [NT Pro Brain Natriuretic Pep.] Stat Lab 10/18/24 14:35 Completed CBC [Complete Blood Count Auto Diff] Stat Lab 10/18/24 14:35 Completed Comprehensive Metabolic Panel Stat Lab 10/18/24 14:35 Completed D-Dimer Stat Lab 10/18/24 14:35 Completed Drug Screen,Urine Stat Lab 10/18/24 14:45 Completed Hemoglobin A1C Stat Lab 10/18/24 14:35 Completed Lactate Venous Stat Lab 10/18/24 14:43 Ordered Lipase Stat Lab 10/18/24 14:35 Completed Magnesium Stat Lab 10/18/24 14:35 Completed Osmolality Stat Lab 10/18/24 14:35 Received POC Glucose,Bedside Routine Lab 10/18/24 14:13 Completed POC Glucose,Bedside Routine Lab 10/18/24 17:44 Completed Rapid PCR Covid and Flu A/B Stat Lab 10/18/24 14:50 Completed Trop I [Troponin I] Stat Lab 10/18/24 14:35 Completed Troponin I Q3H Lab 10/18/24 18:10 Completed Troponin I Q3H Lab 10/18/24 20:30 Ordered Urinalysis and Microscopic Stat Lab 10/18/24 14:50 Completed Venous Blood Gas Stat RT 10/18/24 14:43 Completed ECG Data Tracing #1: I reviewed this ECG and interpreted as documented below: EKG personally interpreted by me demonstrates normal sinus rhythm with a rate of 68 bpm, left axis, no TX prolongation, wide QRS with right bundle branch block morphology, no QTc prolongation. No ST elevation. There are T wave inversions in leads II, III and aVF. There are also T wave inversions in leads V3 through V6. Tracing #2: I reviewed this ECG and interpreted as documented below: EKG personally interpreted by me demonstrates normal sinus rhythm with a rate of 65 bpm, left axis, no TX prolongation, wide QRS with right bundle branch block morphology, no QTc prolongation. No ST elevation. There are T wave inversions in leads II, III and aVF. There are also T wave inversions in leads V3 through V6. This EKG is largely unchanged from prior. Tracing #3: I reviewed this ECG and interpreted as documented below: EKG personally interpreted by me demonstrates normal sinus rhythm with a rate of 65 bpm, left axis, no TX prolongation, wide QRS with right bundle branch block morphology, no QTc prolongation. No ST elevation. There are T wave inversions in leads II, III and aVF. There are also T wave inversions in leads V3 through V6. This EKG is largely unchanged from prior. Critical Care <Devora Craven (THAI), FIRE CONTROL TECHNICIAN - Last Filed: 10/18/24 19:05> Critical Care Time Critical Care Time: No
--- OUTSIDE RECORDS SUMMARY | 2024-10-18 14:46 | XMS_ITS | Clinical Summary ---
Author Organization [facility] Address [address] [place] [address] Phone Care Team Providers Care Recovery Advocate Name Role Phone Mila Lange MD Primary Care Provider [phone] Allergies Active Allergy Reactions Criticality Noted Date Comments Gabapentin Swelling 05/02/2022 [id number] Antimigraine Agents Other (See Comments) 01/19/2024 Contraindicated [...] 01/15/20 Active nalOXone (NARCAN) 4 mg/actuation Nasl Guion, Non-Aerosol 0.1 mL by Nasal route as [...] (Inject under the skin) 46 Units nightly. Bunola too please. May increase 2 units per day until fasting blood sugar is 80-110. Max potential is 100 units 18 mL 3 01/25/20 Active Additional Information Patient taking differently: 36 UnitsSubcutaneous NIGHTLY, Bunola too please. May increase 2 units per [...] 2 03/23/19 25 Active DEXCOM G7 SENSOR [facility] DeviceIndicatio ns:Type 2 diabetes mellitus with hyperglycemia, without long-term current use of insulin ([facility]) 1 Each by [facility].(Non-Drug; Combo Route) route every 10 days. Follow [...] 04/25/19 25 Active ACCU-CHEK GUIDE TEST STRIPS [facility] StripIndication s:Type 2 diabetes mellitus without complication, without long-term current use of insulin ([facility]) TEST BLOOD SUGAR TWICE DAILY 100 Strip 04/26/19 25 Active ACCU-CHEK SOFTCLIX LANCETS [facility] USE TO TEST BLOOD SUGAR TWICE DAILY [...] migh t be different from the original. [facility] - Dr. 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 A1c 9.7 on 01/19/2024 [...] (07/29/2021): Added automatically from request for surgery [id number] Assessment & Plan (02/02/2024 12:58 PM EST): History of CO Consider baby aspirin, consider statin PAF (paroxysmal [...] PM EST): On beta-demetri, not on anticoagulation [employer]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 [employer] Assessment & Plan (01/21/2024 1:41 PM EST): [...] (02/02/2024 12:58 PM EST): Not on treatment 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 History of pneumothorax 09/04/2014 Overview (09/04/2014): 08/2014 [...] (02/02/2024 12:58 PM EST): Not on treatment [employer]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 2015 stapling of blebs both times with Dr. [...] INTERVENTION(PCI) 07/31/2021 N/A CORONARY PERCUTANEOUS INTERVENTION (PCI) [[id number]]; Surgeon: Chaz Moya MD; Location: [facility]; Service: Cardiac Medical devices from this [...] Hyperlipidemia COPD (chronic obstructive pu lmonary disease) ([facility]) inhalers. O2 @ 2l/nc @ HS [...] Date Smoking Tobacco: Every Day Cigarettes 1.5 55.7 Started: [birth year]/07/1971 Smokeless Tobacco: Never Tobacco Cessation:Ready to Q uit: Not Asked; Counseling Given: Not Answered Comments:Pt reports he is currently smoking 0.5ppd-02/13/19-KR Pt states he is only smoking 3-4 cigarettes a day now - 01/19/24 KN Alcohol Use Standard Drinks/Week Comments Yes 4 (1 standard drink = 0.6 oz pure alcohol) pt reports drinking 4 shots of whiskey [employer] [facility] Utilities Answer Date Recorded In the past 12 months has e electric, gas, oil, or water [employer] threatened to shut off services in your home? No 05/11/2024 Overall Financial Resource Strain (CARDIA) Answe r Date Recorded How hard is it for you to pa y for the very basics like food, housing, medical care, and heating? Not very hard 05/11/2024 PHQ-2 Answer Date Recorded PHQ-2 Total Score 0 05/11/2024 [facility] - Occupational Stress Questionnaire Answer Date Recorded [...] things needed for daily living? No 01/12/2023 [facility] IP Transportation Answer D ate Recorded [...] years 1-dose series) 2018 AAA Screening 08/10/2023 Wellness Exam Medicare 10/06/2024 10/06/2023 COVID-19 Vaccine ( season) 2024 Influenza Vaccine (#1) 2024 9, 11/01/2017, 03/25/2017, Additional history exists Hemoglobin A1c 10/11/2024 04/10/2024, 01/07, 11/07/2023, Additional history exists Lipids 04/10/2025 04/10/2024, 01/07, 05/09/2023, Additional history exists Low Dose Lung Cancer Screening 05/10/2025 05/10/2024, 05/07/2023, 01/11/2023, Additional history exists Diabetic [...] Pressure 124/80(2024 1:28 PM EDT) No Nery Mccartney, RN BMI (Calculated) < 30 General 28.9(05/25/19 [...] Lange MD Medical Devices Implanted Type Area Emblem Drawer In Device Identifier Shelf Expiration Date Model / Serial / Lot Kit Lead Surgical Artisan 2 X 8 70cm - [id number] Implanted:Qty: 1 on 09/08/2016 by Cornelia De Leon MD at [facility] N/A: Spine Thoracic [employer] 05/08/2018 CT-8216-7 0 / [id number] / [id number] 3 Kitgenerator Pulse Implantable Mri Montage Precision - [id number] Implanted:Qty: 1 on 09/08/2016 by Cornelia De Leon MD at [facility] N/A: Back [employer] 08/04/2018 CT-1200 / [id number] / [id number] 3.5mm X 32mm Synergy Stent - [id number] Implanted:Qty: 1 on 07/31/2021 by Chaz Moya MD at [facility] N/A: LAD [employer]AC [employer] MGMT [id number] 09/12/2021 [id number] / / [id number] 3.0mm X 20mm Synergy Stent - [id number] Implanted:Qty: 1 on 07/31/2021 by Chaz Moya MD at [facility] N/A: Ramus [employer]MT [id number] 06/17/2022 [id number] / [id number] Procedures Procedure Name Priority Date/Time Associated Diagnosis Comments SCANNED LABS 08/07/2024 5:[address] ANGIOGRAM CHEST ABDOMEN W [...] artery Screening for AAA (abdominal aortic aneurysm) ACUTE HEPATITIS PANEL Routine 04/10/2019 9:08 AM [...] Provider HEMATOLOGY ORDERABLES Final Res ult * CT ANGIOGRAM CHEST ABDOMEN W CONTRAST [...] the ordering clinician. us Gavin Batista MD IM CT ORDERABLES Final Resu lt * (ABNORMAL) HEMOGLOBIN A1C (04/10/2024 1:37 PM EST) Hgb A1C 7.2(H) 4.2 - 5.6 % 04/10/2024 10:14 PM EST [facility]REF[facility] Est. Avg Glucose 160 mg/dL 04/10/2024 10:14 PM EST [facility] Blood VENOUS BLOOD / Unknown Venipuncture / Unknown 04/10/2024 1:37 PM EST 04/10/2024 1:37 PM EST Narrative [facility]REFERRED [facility] - 04/10/2024 10:14 PM EST REFERENCE RANGE: Normal: 4.0-5.6% Pre-diabetes: 5.7-6.4% Provisional diagnosis of diabetes: >6.4% Hgb F>10% and anything which shortens red cell survival, such as hemolytic anemia, or unstable hemoglobin variants such as HbSS, HbSC, or HbCC, will lower the HbA1c value associated with a given level of glycemic control. us Mila Lange MD CHEMISTRY ORDERABLES Final Res ult [facility] [address] [facility] , [place] [address] [facility] [address] [place] [address] * (ABNORMAL) LIPID SCREEN (04/10/2024 1:37 PM EST) Cholesterol 165 <200 mg/dL 04/10/2024 9:07 PM EST [facility] Comment: < 200 Desirable 200 - 239 Borderline High >= 240 High Triglyceride 165(H) <150 mg/dL 04/10/2024 9:07 PM EST [facility] Comment: < 150 Normal 150 - 199 Borderline High 200 - 499 High >= 500 Very High HDL 41 >=40 mg/dL 04/10/2024 9:07 PM EST [facility] Comment: > 60 Optimal 40 - 60 Acceptable < 40 Low LDL Calculated 95 <100 mg/dL 04/10/2024 9:07 PM EST [facility] Comment: < 100 Optimal 100 - 129 Near or above optimal 130 - 159 Borderline High 160 - 189 High >= 190 Very High The National Institutes of Health (NIH) equation is used for all lipid panels that report calculated LDL (LDL-C). Non-HDL-C Calculated 124 <=129 mg/dL 04/10/2024 9:07 PM EST [facility] Comment: <130 Desirable 130-159 Above Desirable 160-189 Borderline High 190-219 High >= 220 Very High Fasting Specimen? Yes None 025 9:07 PM EST [facility] Blood VENOUS BLOOD / Unknown Venipuncture / Unknown 04/10/2024 1:37 PM EST 04/10/2024 1:37 PM EST Mila Lange MD CHEMISTRY ORDERABLES Final Res ult Performing Organization Address [facility] de Phone Number [facility] [employer], [address] , [place] [address] [facility] [address] [place], [place] [id number] * ACUTE HEPATITIS PANEL (04/10/2019 9:08 AM EST) Hep Bs Ag Non-Reacti ve Non-Reacti ve 04/10/2019 3:08 PM EST [facility] Hep B Core IgM Non-Reacti ve Non-Reacti ve 04/10/2019 3:08 PM EST [facility] Hep A IgM Non-Reacti ve Non-Reacti ve 04/10/2019 3:08 PM EST [facility] [employer], [facility] Hep C Ab Non-Reacti ve Non-Reacti ve 04/10/2019 3:08 PM EST [facility] [employer], [facility] Blood VENOUS BLOOD / Unknown Venipuncture / Unknown 04/10/2019 9:08 AM EST 04/10/2019 9:08 AM EST Mila Lange MD CHEMISTRY ORDERABLES Final Res ult Performing Organization Address [facility] de Phone Number [facility] [employer], [facility] [address] [facility] , [address] [place] [id number] * DIABETES EYE EXAM (09/18/2018) Historical Provider HEALTH MAINTENANCE Final Res ult Performing Organization Address [facility] de Phone Number SEP OFFICE from Last 3 Months or Most Recently Relevant to Health Maintenance Insurance FRANNIE JUANY MR FRANNIE HARRINGTON MR FRANNIE [place]ARRINGTON MR Advance Directives For more information, please contact: [phone] * Full Code (Latest Code Status on [...] 5:12 AM 02/16/2024 11:29 PM Care Teams Recovery Advocate Relationship Specialty Start Date End Date Mila Lange MD [address] [place] [address] PCP - General Family Medicine 06/22/11
--- OUTSIDE RECORDS SUMMARY | 2024-10-18 14:46 | XMS_ITS | Encounter Summary ---
Author Organization [place] [address] Care Team Providers Care Veterinary Medicine Teacher Name Role Phone Mila Lange MD Primary Care Provider [phone] Reason for Visit * Reason Onset Date Comments Medication Management 09/18/2024 Encounter Details Date Type Department Care Team (Late Contact Info) Description 09/18/2024 Patient Outreach [facility] [address] [place] [address] Marilynn Bates [facility] Medication Management Social History Tobacco Use Types Packs/Day Years Used Date Smoking Tobacco: Every Day Cigarettes 1.5 55.7 Started: [birth year]/07/1971 Smokeless Tobacco: Never Comments:Pt reports he is cu rrently smoking 0.5ppd-02/13/19-KR Pt states he is only smoking 3-4 cigarettes a day now - 01/19/24 KN Alcohol Use Standard Drinks/Week Comments Yes 4 (1 standard drink = 0.6 oz pure alcohol) pt reports drinking 4 shots of whiskey [employer] [facility] Utilities Answer Date Recorded In the past 12 months has [employer] electric, gas, oil, or water company threatened to shut off services in your home? No 05/11/2024 Overall Financial Resource Strain (CARDIA) Answe r Date Recorded How hard is it for you to pa y for the very basics like food, housing, medical care, and heating? Not very hard 05/11/2024 PHQ-2 Answer Date Recorded PHQ-2 Total Score 0 05/11/2024 [facility] Occupat ional Health - Occupational Stress [...] things needed for daily living? No 01/12/2023 [facility] IP [...] of Assessment Author No 03/16/2024 8:51 AM EST Jon Johnson MA * Because of a physical, mental [...] Entry Date Author No 03/16/2024 8:51 AM EST Jon Johnson MA documented in this encounter Progress Notes * Marilynn Bates RPH - 09/18/2024 1:19 PM EDT Pharmacy Consult 09/18/2024 with Marilynn Bates RPH: Tashi Subhash Martin Jr. was referred for pharmacist medication adherence counseling on rosuvastatin. Pharmacist reviewed chart. Subjective: Unable to reach pt. Objective: Per third alliance party payor data/dispensing pharmacy: Drug Name/Class Last fill date Days supply rosuvastatin 40 mg daily 04/24/2024 90 Assessment Unable to reach pt for comprehensive medication review with pharmacist at this time. I will attemptto contact them again in the future for this service, if needed. Thank you, Marilynn Bates RPH documented in this encounter Plan of Treatment [...] track( 025 3:14 PM EST) No Nery Mccartney, BEAU Patient will limit daily intake of sodium [...] documented as of this encounter Care Teams Veterinary Medicine Teacher Relationship Specialty Start Date End Date Mila Lange MD [address] [place] [address] PCP - General Family Medicine 06/22/11 documented as of this encounter
--- OUTSIDE RECORDS SUMMARY | 2024-10-18 14:46 | XMS_ITS | Encounter Summary ---
Author Organization [facility] Address [address] [place] [address] Care Team Providers Care Clerical Associate Name Role Phone Efrem Lauren DO Primary Care Provider [phone] Encounter Details Date Type Department Care Team (Latest Contact Info) Description 10/06/2024 Travel Social History Tobacco Use Types Packs/Day Years Used Date Smoking Tobacco: Never Assessed Sex and Gender Information Value Date Recorded Sex Assigned at Not on file Legal Sex Male 2:01 PM EDT Gender Identity Not on file Sexual Orientation Not on file documented as of this encounter Functional Status * Calculated C-SSRS [...] Bay RN documented as of this encounter Plan of Treatment Not on file documented as of this encounter Visit Diagnoses Not on filedocumented in this encounter Care Teams Clerical Associate Relationship Specialty Start Date End Date Efrem Lauren, [address] [place] [address] [place] [address] PCP - General 10/06/24 documented as of this encounter
--- OUTSIDE RECORDS SUMMARY | 2024-10-18 14:46 | XMS_ITS | Clinical Summary ---
Author Organization Healthcare Address [address] [place] [address] Care Team Providers Care Extrusion Press Adjuster Name Role Phone Efrem Lauren DO Primary Care Provider [phone] Allergies Active Allergy Reactions Criticality Noted Date Comments Gabapentin Swelling High 10/06/2024 Wasp Venom Protein Anaphylaxis High 10/06/2024 Medications azithromycin (Zithromax Z-Braydon) 250 MG tabletIndication s:Pneumonia due to infectious organism, unspecified laterality, unspecified part of lung Take 2 tablets day 1 followed by 1 tablet daily on days 2 thru 5 6 tablet 5 Active amoxicillin-clav ulanate (Augmentin) 875-125 MG tabletIndication s:Pneumonia due to infectious organism, unspecified laterality, unspecified part of lung Take 1 tablet by mouth 2 times a day for 5 days. 10 tablet 5 10/12/19 25 Encounters Date Type Department Care Team Description 10/06/2024 2:02 PM EDT - 10/06/2024 8:35 PM EDT Emergency [facility] [address] [place] [address] Philippe Bernal MD Chest pain, unspecified type (Primary Dx); Pneumonia due to infectious organism, unspecified laterality, unspecified part of lung Discharge Disposition: Home or Self Care 10/06/2024 Travel from Last 3 Months Social History Tobacco Use Types Packs/Day Years Used Date Smoking Tobacco: Never Assessed Sex and Gender Information Value Date Recorded Sex Assigned at Not on file Legal Sex Male 2:01 PM EDT Gender Identity Not on file Sexual Orientation Not on file Last Filed Vital Signs Vital Sign Reading [...] Mass Index 29.33 10/06/2024 2:19 PM EDT Plan of Treatment Health Maintenance Due Date Last Done Comments [facility]Depression Screening 1958 [facility]-Diabetes: Hemoglobin A1C 1958 [facility]-Hepatitis C Screening 1958 [facility]Medicare Annual Wellness (AWV) 1958 [facility]-/Child/Adol SDOH Screenings 1958 [facility]-Obesity Intervention 1964 Diabetes: Dental Exam 1968 [facility]- SDOH Screenings 1976 [facility]-Adult SDOH Screenings 1976 CT Colonography 08/10/2003 Colonoscopy 08/10/2003 FIT-DNA 08/10/2003 FIT 08/10/2003 FOBT 08/10/2003 Sigmoidoscopy 08/10/2003 [facility]-Colorectal Cancer Screening 08/10/2003 [facility]-Zoster Vaccines (1 of 2) 2008 NGL-[id number]-70 Vaccine ( - 2023- season) 2024 [facility]-Influenza Vaccine (#1) 10/08/202402/04, 11/01/2017, 03/25/2017, Additional history exists [facility]-DTaP,Tdap,and Td Vaccines (2 - Td or Tdap) 10/27/2031 10/26/2021 [facility]-RSV Vaccine: 60+ Years or (1 - 1-dose 75+ series) 2033 [facility]-Pneumococcal Vaccine: 50+ Years Completed 09/17/2022, 08/25/2014 HPV Vaccines Aged Out No longer eligi ble based on patient's age to complete this topic [facility]-HIB Vaccines Aged Out No longer e ligible based on patient's age to complete this topic [facility]-Hepatitis A Vaccines Aged Out No longer eligible based on patient's age to complete this topic [facility]-IPV Vaccines Aged Out No longer e ligible based on patient's age to complete this topic [facility]-Rotavirus Vaccines Aged Out No lo nger eligible based on patient's age to complete this topic Procedures Procedure Name Priority Date/Time Associated Diagnosis Comments POCT GLUCOSE METER UNSOLICITED RESULTS Routine 10/06/2024 6:49 PM EDT ECG ADULT STAT 10/06/2024 5:56 PM EDT TROPONIN T, HIGH SENSITIVITY, 2 HOUR, PLASMA Timed 10/06/2024 5:40 PM EDT ANTI XA LEVEL UNFRACTIONATED HEPARIN STAT 10/06/2024 4:[address] ANGIO CHEST STAT 10/06/2024 3:52 PM EDT BETA HYDROXYBUTYRIC ACID STAT 10/06/2024 3:16 PM EDT PROTHROMBIN TIME(PT) / INR STAT 10/06/2024 3:16 PM EDT CBC WITH AUTO DIFFERENTIAL STAT 10/06/2024 3:16 PM EDT TROPONIN T, HIGH SENSITIVITY, 0 HOUR, PLASMA, REFLEX TO 2 HOUR STAT 10/06/2024 3:16 PM EDT N-TERMINAL PROBNP, PLASMA STAT 10/06/2024 3:16 PM EDT BLOOD GAS PANEL, VENOUS STAT 10/07/19 3:16 PM EDT PHOSPHORUS, PLASMA STAT 10/06/2024 3: 16 PM EDT MAGNESIUM, PLASMA STAT 10/06/2024 3:1 6 PM EDT COMPREHENSIVE METABOLIC PANEL, PLASMA STAT 10/06/2024 3:16 PM EDT XR CHEST 1 VIEW STAT 10/06/2024 3:12 PM EDT URINE GORDON PANEL STAT 10/06/2024 3:06 PM EDT URINALYSIS WITH REFLEX MICROSCOPIC STAT 10/06/2024 3:06 PM EDT URINALYSIS WITH REFLEX MICROSCOPIC AND CULTURE STAT 10/06/2024 3:06 PM EDT POCT GLUCOSE METER UNSOLICITED RESULTS Routine 10/06/2024 2:17 PM EDT ECG ADULT STAT 10/06/2024 2:13 PM EDT from Last 3 Months Results * (ABNORMAL) POCT glucose meter (10/06/2024 6:49 PM EDT) Only the most recent of2 resultswithin the time period is included. POCT Glucose 253(H) 74 - 99 mg/dL [...] Comment 10/06/2024 6:50 PM EDT HEALTHCARE LAB Continuous Miner ID Paulina Gaspar 10/06/2024 6:50 PM EDT HEALTHCARE LAB Device ID [id number] 10/06/2024 6:50 PM EDT HEALTHCARE LAB Specimen Type POC Capillary 10/06/2024 6:50 PM EDT HEALTHCARE LAB Blood Capillary blood specimen / Unknown 10/06/2024 6:49 PM EDT 10/06/2024 6:50 PM EDT us Philippe Bernal MD LAB POINT OF CARE TE ST DOCKED DEVICE UNSOLICITED RESULTS Final Result Performing Organization Address City/[facility] Co de Phone Number [facility] [address] [place] [address] * EKG now - STAT (adult) (10/06/2024 5:56 PM EDT) Only the most recent of2 resultswithin the time period is included. EKG DIAGNOSIS CLASS Abnormal MUSE ECG Ventricular Rate 72 BPM MUSE ECG Atrial Rate 72 BPM MUSE ECG MN Interval 170 ms MUSE ECG QRSD Interval 134 ms MUSE ECG QT Interval 460 ms MUSE ECG QTC Interval 503 ms MUSE ECG P [place] 23 degrees MUSE ECG R [place] -69 degrees MUSE ECG T Wave [place] -3 degrees MUSE ECG Diagnosis Normal sinus rhythm MUSE ECG Diagnosis Left axis deviation MUSE ECG Diagnosis Right bundle branch block MUSE ECG Diagnosis Abnormal ECG MUSE ECG Diagnosis MUSE ECG Diagnosis Confirmed by Albino Reveles ([id number]) on 10/07/2024 10:14:31 AM MUSE ECG 10/06/2024 5:56 PM EDT 10/07/2024 10:14 AM EDT us Philippe Bernal MD ECG ORDERABLES Final Result Performing Organization Address [facility] de Phone Number MUSE ECG * Troponin T, High Sensitivity, 2 Hour, Plasma (10/06/2024 5:40 PM EDT) Pathologist [facility] Troponin T, High Sensitivity, 2 Hour 12 <19 ng/L 10/06/2024 6:23 PM EDT [facility] Blood Venous blood specimen / Unknown Venipuncture / Unknown 10/06/2024 5:40 PM EDT 10/06/2024 5:54 PM EDT us Donnell Beverly MD LAB BLOOD ORDERABLES Lori l Result Performing Organization Address City/[facility]/ZIP Co de Phone Number [facility] [address] [place] [address] * Anti Xa Level Unfractionated Heparin (10/06/2024 4:17 PM EDT) Anti Xa Level Unfractionated Heparin <0.11 <1.00 IU/mL LAB COAGULATION METHOD 10/06/2024 4:53 PM EDT [facility] Blood Venous blood specimen / Unknown Venipuncture / Unknown 10/06/2024 4:17 PM EDT 10/06/2024 4:27 PM EDT Narrative [facility] - 10/06/2024 4:53 PM EDT Therapeutic Range: UFH Full Dose and ACS/SD protocols*: 0.30 - 0.70 IU/mL UFH Low Dose protocol*: 0.25 - 0.50 IU/mL UFH prophylaxis: Not established us Philippe Bernal MD LAB BLOOD ORDERABLES Final Res ult [facility] [address] [place] [address] * CT Angio Chest (10/06/2024 3:52 PM EDT) Anatomical Region Laterality Modality Chest Computed Tomogra phy Impressions 10/06/2024 4:43 PM EDT 1. No acute traumatic aortic injury. 2. No acute findings in the chest. 3. Lower lobe predominant cystic change probably represents bullae in the setting of mild emphysema, however cystic lung disease is also possible, in which case lymphocytic interstitial pneumonia or Wukt-Hife-Vvwb syndrome are the most likely cause cysts [...] possible,in which case lymphocytic interstitial pneumonia or Kvgx-Fojj-Vivjklofmyua are the most likely cause cysts in [...] MD on 10/06/2024 4:43 PM us Philippe Bernal MD IMG CT PROCEDURES Final Result * Troponin now and 120 min (10/06/2024 3:16 PM EDT) Troponin T, High Sensitivity, 0 Hour 13 <19 ng/L 10/06/2024 3:57 PM EDT [facility] Blood Venous blood specimen / Unknown Venipuncture / Unknown 10/06/2024 3:16 PM EDT 10/06/2024 3:27 PM EDT us Donnell Beverly MD LAB BLOOD ORDERABLES Lori perez Result [facility] [address] [place] [address] * Beta-Hydroxybutyric Acid (10/06/2024 3:16 PM EDT) Beta-Hydroxybut yric Acid, Plasma 0.21 <=0.27 mmol/L 10/06/2024 4:19 PM EDT [facility] Blood Venous blood specimen / Unknown Venipuncture / Unknown 10/06/2024 3:16 PM EDT 10/06/2024 3:27 PM EDT Donnell Beverly MD LAB BLOOD ORDERABLES Lori l Result Performing Organization Address City/[facility]/ZIP Co de Phone Number [facility] [address] [place] [address] * BNP (10/06/2024 3:16 PM EDT) N-Terminal, PROBNP, Plasma <50 0 - 899 pg/mL 10/06/2024 3:57 PM EDT [facility] Blood Venous blood specimen / Unknown Venipuncture / Unknown 10/06/2024 3:16 PM EDT 10/06/2024 3:27 PM EDT Donnell Beverly MD LAB BLOOD ORDERABLES Lori l Result Performing Organization Address City/[facility] Co de Phone Number [facility] [address] [place] [address] * PT-INR (10/06/2024 3:16 PM EDT) Prothrombin Time 12.4 12.0 - 14.3 sec LAB COAGULATION METHOD 10/06/2024 3:53 PM EDT [facility] INR 0.9 0.9 - 1.1 LAB COAGULATION METHOD 10/06/2024 3:53 PM EDT [facility] Blood Venous blood specimen / Unknown Venipuncture / Unknown 10/06/2024 3:16 PM EDT 10/06/2024 3:26 PM EDT Narrative [facility] - 10/06/2024 3:53 PM EDT OPTIMAL INR RANGES FOR PATIENT ON ORAL ANTICOAGULANT THERAPY Prevention of venous thromboembolism INR 2.0 to 3.0 In patients with heart disease: Atrial fibrillation INR 2.0 to 3.0 Valvular heart disease INR 2.0 to 3.0 Tissue heart valves INR 2.0 to 3.0 Mechanical prosthetic valves INR 2.5 to 3.5 Prevention of recurrent SD INR 2.5 to 3.5 us Donnell Beverly MD LAB BLOOD ORDERABLES Lori perez Result [facility] [address] [place] [address] * (ABNORMAL) CBC w/diff (10/06/2024 3:16 PM EDT) WBC Count 10.86(H) 3.70 - 10.30 10*3/uL LAB HEMATOLOGY METHOD 10/06/2024 3:34 PM EDT [facility] RBC Count 5.08 4.60 - 6.10 10*6/uL LAB HEMATOLOGY METHOD 10/06/2024 3:34 PM EDT [facility] HGB 15.9 13.7 - 17.5 g/dL LAB HEMATOLOGY METHOD 10/06/2024 3:34 PM EDT [facility] HCT 44.4 40.0 - 51.0 % LAB HEMATOLOGY METHOD 10/06/2024 3:34 PM EDT [facility] Platelet Count 217 155 - 369 10*3/uL LAB HEMATOLOGY METHOD 10/06/2024 3:34 PM EDT [facility] MCV 87 79 - 98 fL LAB HEMATOLOGY METHOD 10/06/2024 3:34 PM EDT [facility] MCH 31.3 26.0 - 32.0 pg LAB HEMATOLOGY METHOD 10/06/2024 3:34 PM EDT [facility] MCHC 35.8(H) 30.7 - 35.5 g/dL LAB HEMATOLOGY METHOD 10/06/2024 3:34 PM EDT [facility] RDW 12.4 11.5 - 14.5 % LAB HEMATOLOGY METHOD 10/06/2024 3:34 PM EDT [facility] MPV 10.4 8.8 - 12.5 fL LAB HEMATOLOGY METHOD 10/06/2024 3:34 PM EDT [facility] nRBC 0.0 <=0.0 per 100 WBCs LAB HEMATOLOGY METHOD 10/06/2024 3:34 PM EDT [facility] Differential Type Automated LAB HEMATOLOGY METHOD 10/06/2024 3:34 PM EDT [facility] Neutrophils % 48 % LAB HEMATOLOGY METHOD 10/06/2024 3:34 PM EDT [facility] Lymphocytes % 41 % LAB HEMATOLOGY METHOD 10/06/2024 3:34 PM EDT [facility] Monocytes % 8 % LAB HEMATOLOGY METHOD 10/06/2024 3:34 PM EDT [facility] Eosinophils % 1 % LAB HEMATOLOGY METHOD 10/06/2024 3:34 PM EDT [facility] Basophils % 1 % LAB HEMATOLOGY METHOD 10/06/2024 3:34 PM EDT [facility] Immature Granulocytes % 1 % LAB HEMATOLOGY METHOD 10/06/2024 3:34 PM EDT [facility] Neutrophils Absolute 5.30 1.60 - 6.10 10*3/uL LAB HEMATOLOGY METHOD 10/06/2024 3:34 PM EDT [facility] Lymphocytes Absolute 4.49(H) 1.20 - 3.90 10*3/uL LAB HEMATOLOGY METHOD 10/06/2024 3:34 PM EDT [facility] Monocytes Absolute 0.81 0.30 - 0.90 10*3/uL LAB HEMATOLOGY METHOD 10/06/2024 3:34 PM EDT [facility] Eosinophils Absolute 0.15 0.00 - 0.50 10*3/uL LAB HEMATOLOGY METHOD 10/06/2024 3:34 PM EDT [facility] Basophils Absolute 0.06 0.00 - 0.10 10*3/uL LAB HEMATOLOGY METHOD 10/06/2024 3:34 PM EDT [facility] Immature Granulocytes Absolute 0.05 0.00 - 0.06 10*3/uL LAB HEMATOLOGY METHOD 10/06/2024 3:34 PM EDT [facility] Blood Venous blood specimen / Unknown Venipuncture / Unknown 10/06/2024 3:16 PM EDT 10/06/2024 3:27 PM EDT Narrative [facility] - 10/06/2024 3:34 PM EDT Therapeutic decision making should be based on absolute values, rather than percentages. us Donnell Beverly MD LAB BLOOD ORDERABLES Lori perez Result [facility] [address] [place] [address] * Phosphorus (10/06/2024 3:16 PM EDT) [facility] Phosphorus, Plasma 4.1 2.5 - 4.5 mg/dL 10/06/2024 3:57 PM EDT [facility] Blood Venous blood specimen / Unknown Venipuncture / Unknown 10/06/2024 3:16 PM EDT 10/06/2024 3:27 PM EDT Donnell Beverly MD LAB BLOOD ORDERABLES Lori l Result [facility] [address] [place] [address] * (ABNORMAL) Magnesium (10/06/2024 3:16 PM EDT) [facility] Magnesium, Plasma 1.8(L) 1.9 - 2.4 mg/dL 10/06/2024 3:57 PM EDT [facility] Blood Venous blood specimen / Unknown Venipuncture / Unknown 10/06/2024 3:16 PM EDT 10/06/2024 3:27 PM EDT Donnell Beverly MD LAB BLOOD ORDERABLES Lori l Result [facility] [address] [place] [address] * (ABNORMAL) Blood gas panel, venous (10/06/2024 3:16 PM EDT) [facility] pH, Venous 7.40 7.32 - 7.43 LAB HEMATOLOGY METHOD 10/06/2024 3:30 PM EDT [facility] pCO2, Venous 39(L) 40 - 55 mmHg LAB HEMATOLOGY METHOD 10/06/2024 3:30 PM EDT [facility] pO2, Venous 72(H) 25 - 40 mmHg LAB HEMATOLOGY METHOD 10/06/2024 3:30 PM EDT [facility] SO2, Measured, Venous 95(H) 65 - 80 % LAB HEMATOLOGY METHOD 10/06/2024 3:30 PM EDT [facility] Base Excess, Venous -0.6 -2.0 - 3.0 mmol/L LAB HEMATOLOGY METHOD 10/06/2024 3:30 PM EDT [facility] Bicarbonate, Calculated, Venous 24 22 - 26 mmol/L LAB HEMATOLOGY METHOD 10/06/2024 3:30 PM EDT [facility] Hematocrit, Whole Blood 49.1 40.0 - 51.0 % LAB HEMATOLOGY METHOD 10/06/2024 3:30 PM EDT [facility] Sodium, Whole Blood 132(L) 136 - 145 mmol/L LAB HEMATOLOGY METHOD 10/06/2024 3:30 PM EDT [facility] Potassium, Whole Blood 4.1 3.6 - 4.9 mmol/L LAB HEMATOLOGY METHOD 10/06/2024 3:30 PM EDT [facility] Chloride, Whole Blood 98 97 - 107 mmol/L LAB HEMATOLOGY METHOD 10/06/2024 3:30 PM EDT [facility] Glucose, Whole Blood 437(H) 74 - 99 mg/dL LAB HEMATOLOGY METHOD 10/06/2024 3:30 PM EDT [facility] Lactate, Venous, Whole Blood 2.4(H) 0.5 - 2.2 mmol/L LAB HEMATOLOGY METHOD 10/06/2024 3:30 PM EDT [facility] Ionized Calcium, Whole Blood 5.4(H) 4.6 - 5.1 mg/dL LAB HEMATOLOGY METHOD 10/06/2024 3:30 PM EDT [facility] Blood Venous blood specimen / Unknown Venipuncture / Unknown 10/06/2024 3:16 PM EDT 10/06/2024 3:28 PM EDT us Donnell Beverly MD LAB BLOOD ORDERABLES Lori l Result [facility] [address] [place] [address] * (ABNORMAL) CMP (10/06/2024 3:16 PM EDT) Glucose, Plasma 446(H) 74 - 99 mg/dL 10/06/2024 3:57 PM EDT [facility] BUN, Plasma 15 8 - 23 mg/dL 10/06/2024 3:57 PM EDT [facility] Creatinine, Plasma 0.82 0.70 - 1.20 mg/dL 10/06/2024 3:57 PM EDT [facility] BUN/Creatinine Ratio 18 10/06/2024 3:57 PM EDT [facility] Sodium, Plasma 131(L) 136 - 145 mmol/L 10/06/2024 3:57 PM EDT [facility] Potassium, Plasma 4.3 3.6 - 4.9 mmol/L 10/06/2024 3:57 PM EDT [facility] Chloride, Plasma 95(L) 97 - 107 mmol/L 10/06/2024 3:57 PM EDT [facility] CO2, Plasma 21(L) 22 - 29 mmol/L 10/06/2024 3:57 PM EDT [facility] Anion Gap 15 6 - 16 mmol/L 10/06/2024 3:57 PM EDT [facility] Total Calcium, Plasma 10.4(H) 8.9 - 10.2 mg/dL 10/06/2024 3:57 PM EDT [facility] Total Protein 6.8 6.3 - 7.9 g/dL 10/06/2024 3:57 PM EDT [facility] Albumin, Plasma 4.1 3.5 - 5.2 g/dL 10/06/2024 3:57 PM EDT [facility] AST, Plasma 31 10 - 50 U/L 10/06/2024 3:57 PM EDT [facility] Comment:Hemolyzed, result ma y be falsely increased. ALT, Plasma 29 10 - 50 U/L 10/06/2024 3:57 PM EDT [facility] Alkaline Phosphatase, Plasma 99 40 - 115 U/L 10/06/2024 3:57 PM EDT [facility] Total Bilirubin, Plasma 0.4 0.2 - 1.1 mg/dL 10/06/2024 3:57 PM EDT [facility] eGFRcr 96.9 mL/min/1.7 3m*2 10/06/2024 3:57 PM EDT [facility] Comment:Reported eGFRcr in m L/min/1.73m2 is based the CKD-EPI 2020 equation that does not use a race coefficient. Blood Venous blood specimen / Unknown Venipuncture / Unknown 10/06/2024 3:16 PM EDT 10/06/2024 3:27 PM EDT us Donnell Beverly MD LAB BLOOD ORDERABLES Lori perez Result [facility] [address] [place] [address] * XR Chest 1 View (10/06/2024 3:12 [...] culture not indicated 10/07/2024 12:01 AM EDT [facility] Comment: Previously prelim verified as Specimen [...] Donnell Beverly MD LAB URINE ORDERABLES Lori perez Result [facility] [address] [place] [address] * (ABNORMAL) Urinalysis with reflex microscopic (Culture NOT Included) (10/06/2024 3:06 PM EDT) Color, Urine Yellow LAB URINALYSIS - AUTOMATED METHOD 10/06/2024 3:25 PM EDT [facility] Clarity, Urine Clear LAB URINALYSIS - AUTOMATED METHOD 10/06/2024 3:25 PM EDT [facility] Spec [place], Urine >1.030(H) 1.005 - 1.030 LAB URINALYSIS - AUTOMATED METHOD 10/06/2024 3:25 PM EDT [facility] pH, Urine 6.0 5.0 - 8.0 LAB URINALYSIS - AUTOMATED METHOD 10/06/2024 3:25 PM EDT [facility] Protein, Urine Negative Negative mg/dL LAB URINALYSIS - AUTOMATED METHOD 10/06/2024 3:25 PM EDT [facility] Glucose, Urine >=1000(A) Negative mg/dL LAB URINALYSIS - AUTOMATED METHOD 10/06/2024 3:25 PM EDT [facility] Ketones, Urine Negative Negative mg/dL LAB URINALYSIS - AUTOMATED METHOD 10/06/2024 3:25 PM EDT [facility] Blood, Urine Negative Negative LAB URINALYSIS - AUTOMATED METHOD 10/06/2024 3:25 PM EDT [facility] Bilirubin, Urine Negative Negative LAB URINALYSIS - AUTOMATED METHOD 10/06/2024 3:25 PM EDT [facility] Urobilinogen, Urine 0.2 0.2 to 1.0 mg/dL LAB URINALYSIS - AUTOMATED METHOD 10/06/2024 3:25 PM EDT [facility] Leukocytes, Urine Negative Negative LAB URINALYSIS - AUTOMATED METHOD 10/06/2024 3:25 PM EDT [facility] Nitrite, Urine Negative Negative LAB URINALYSIS - AUTOMATED METHOD 10/06/2024 3:25 PM EDT [facility] Urine Urine specimen obtained by clean catch procedure / Unknown Non-blood Collection / Unknown 10/06/2024 3:06 PM EDT 10/06/2024 3:19 PM EDT us Donnell Beverly MD LAB URINE ORDERABLES Lori perez Result [facility] [address] [place] [address] from Last 3 Months Insurance [facility] MEDIC[facility] Care Teams Extrusion Press Adjuster Relationship Specialty Start Date End Date Efrem Lauren DO [address] [place] [address] [place] [address] PCP - General 10/06/24
[2024-10-18] MEDS: 0.9 % SODIUM CHLORIDE 1000ML 1,000 ML 999 ML IV ×2 (14:48→15:23)
[2024-10-18 14:50] LABS: Hematocrit 44.3 % (42.0-52.0); Hemoglobin 15.2 g/dL (14.1-18.0); Immature Granulocytes % 0.5 %; Mean Corpuscular HGB Conc 34.3 g/dL (31.8-35.4); Mean Corpuscular Hemoglobin 31.0 pg (27.0-31.2); Mean Corpuscular Volume 90.4 fl (80-94); Nucleated Red Blood Cells % 0 %; Platelet Count 223 K/mm3 (142-424); Red Blood Count 4.90 M/mm3 (4.60-6.20); Red Cell Distribution Width-SD 41.6 fL; White Blood Count 8.0 K/mm3 (4.8-10.8)
[2024-10-18 14:52] LABS: Lactate Venous 2.2 mmol/L (0.4-2.0); VBG HCO3 23.5 mmol/L (23-30); VBG PCO2 43.3 mmol/L (35-51); VBG PH 7.35 mmol/L (7.31-7.41); VBG PO2 50.9 mmol/L (28-40)
[2024-10-18 14:56] LABS: Coronavirus 19, PCR Not Detected (NotDetected); Influenza A, PCR Not Detected (NotDetected); Influenza B, PCR Not Detected (NotDetected); Microscopic, Urine URINE MICROSCOPIC (MICROSCOPIC)
[2024-10-18 15:00] LABS: Acetone, Serum (Rapid) None Detected (None Detect)
[2024-10-18 15:01] LABS: Albumin Level 4.2 g/dl (3.5-5.0); Chloride 108 mmol/L (98-107); Potassium 4.9 mmoL/L (3.5-5.1); Sodium 137 mmol/L (136-145)
[2024-10-18 15:03] LABS: Bilirubin,Urine Negative (Negative); Color,Urine YELLOW (Yellow); Glucose,Urine (UA) 3+ (Negative); Ketones,Urine Negative (Negative); Leukocyte Esterase,Urine Negative (Negative); PH,Urine 5.5 (5.0-8.5); Protein,Urine Negative (Negative); Specific Gravity, Urine 1.010 (1.005-1.030); Urobilinogen,Urine 0.2 EU/dl (0.2)
[2024-10-18 15:04] LABS: Alanine Aminotransferase 43 U/L (12-78); Albumin/Globulin Ratio 1.5 (1.1-1.8); Alkaline Phosphatase 78 U/L (38-126); Anion Gap 10.9 mEq/L (5-15); Aspartate Amino Transferase 57 U/L (17-59); Bilirubin,Total 0.4 mg/dl (0.2-1.3); Blood Urea Nitrogen 17 mg/dl (9-20); Calcium 9.5 mg/dl (8.4-10.2); Carbon Dioxide 23 mmol/L (22.0-30.0); Creatinine Clearance Estimated 97 mL/min (50-200); Creatinine,Serum 0.90 mg/dl (0.66-1.25); Estimated Glomerular Filt Rate 84 ml/min (>60); GFR (African American) 102 ML/MIN (>60); Globulin 2.8 g/dL (1.3-3.2); Glucose 374 mg/dl (74-100); Lipase 133 U/L (23-300); Total Protein,Serum 7.0 g/dl (6.3-8.2)
[2024-10-18 15:05] LABS: Magnesium 1.8 mg/dl (1.6-2.3)
[2024-10-18 15:13] LABS: NT Pro Brain Natriuretic Pep. 101 pg/mL (0-125)
[2024-10-18 15:25] LABS: Amorphous Sediment,Urine Trace /lpf; Bacteria,Urine Trace /lpf; RBC,Urine Occasional #/hpf (0-3); WBC,Urine Occasional #/hpf (0-3)
[2024-10-18 15:40] LABS: Troponin I < 0.01 ng/ml (0.00-0.034)
--- OUTSIDE RECORDS SUMMARY | 2024-10-18 15:46 | XMS_ITS | CCD ---
Author Organization Unknown Care Team Providers Care Diamond Blender Name Role Phone Unavailable Primary Care Provider Unavailabl e Unavailable Chronic Care Management Unavaila ble Summary Purpose DataExchange Insurance Providers Payer name Policy type / Coverage type Covered constitution party ID Effective Begin Date Effective End Date [facility] [id number] Unknown Unknown Family History Family History data not found Medication Administered No Medication Administered data Reason For Visit No Reason For Visit data Medical Equipment No Medical Equipment data Advance Directives No Advance Directive data
--- NOTE | 2024-10-18 15:58 | ECG_ITS ---
APPROVED REPORT Exam: Resting ECG HR:65 bpm ECG Measurements Heart Rate 65 AXES KS 178 P 69 QRSd 145 QRS -59 QT 418 T -25 QTc 429 Conclusion Sinus rhythm Right bundle branch block ST depression in leads II, 3, aVF, V3 through V6 No STEMI Electronically signed by : Domingo Dugan, 10/18/2024 23:42:42
[2024-10-18 16:00] LABS: D-Dimer 0.93 ug/mL (0.0-0.5)
--- NOTE | 2024-10-18 16:17 | CT_ITS ---
PROCEDURE INFORMATION: Exam: CTA Chest Without And With Contrast Exam date and time: 10/18/2024 4:28 PM Age: 64 years old Clinical indication: Shortness of breath; Additional info: Elevated dimer TECHNIQUE: Imaging protocol: Computed tomographic angiography of the chest without and with contrast. Exam focused on the arteries. 3D rendering (Not supervised by radiologist): MIP and/or 3D reconstructed images were created by the technologist. Radiation optimization: All CT scans at this facility use at least one of these dose optimization techniques: automated exposure control; mA and/or kV adjustment per patient size (includes targeted exams where dose is matched to clinical indication); or iterative reconstruction. Contrast material: ISOVUE 370; Contrast volume: 85 ml; Contrast route: INTRAVENOUS (IV); COMPARISON: CT ANGIO CHEST PE PROTOCOL 09/09/2024 12:32 PM FINDINGS: Pulmonary arteries: No evidence of pulmonary embolism. Aorta: Aneurysmal dilation of the aortic root/sinuses of Valsalva measuring 5.0 cm in maximum diameter (sagittal series 202, image 54), unchanged from 09/09/2024 CTA. Caliber of the thoracic aorta is within normal limits. No aortic dissection. Lungs: Multiple thin-walled pneumatoceles scattered through both lungs, unchanged from prior exam. Stable appearance of pleuroparenchymal scarring in the anterior right upper lobe. No evidence of focal airspace infiltrate or congestive pulmonary edema. Few calcified pulmonary granulomata consistent with chronic sequelae of prior granulomatous disease, unchanged. Pleural spaces: No pneumothorax. No pleural effusion. Heart: Mild global cardiomegaly, unchanged. No pericardial effusion. Coronary arteries: Calcific coronary artery disease with multiple coronary stents in place, unchanged from prior exam. Esophagus: Distal esophageal wall thickening suggestive of gastroesophageal reflux esophagitis. Lymph nodes: Unremarkable. Bones/joints: No acute osseous abnormality. Soft tissues: Unremarkable. IMPRESSION: 1. No evidence of pulmonary embolism or other acute cardiopulmonary process. 2. Distal esophageal wall thickening suggestive of gastroesophageal reflux esophagitis. 3. Aneurysmal dilation of the aortic root/sinuses of Valsalva measuring 5.0 cm in maximum diameter, unchanged from 09/09/2024 CTA. 4. Additional chronic ancillary findings detailed above are also unchanged.
[2024-10-18] MEDS: 0.9 % SODIUM CHLORIDE 50 ML VIAL IV (16:39)
[2024-10-18] MEDS: SODIUM CHLORIDE 0.9% 10ML SYR (RAD ONLY) 10 ML IV (16:39)
[2024-10-18] MEDS: IOPAMIDOL-370 (76%);100ML BOTTLE 85 ML IV (16:39)
--- NOTE | 2024-10-18 16:44 | ECG_ITS ---
APPROVED REPORT Exam: Resting ECG HR:65 bpm ECG Measurements Heart Rate 65 AXES IA 145 P -36 QRSd 142 QRS -57 QT 407 T -17 QTc 418 Conclusion Sinus rhythm Left axis Right bundle branch block Downsloping ST segment in leads III, aVF, V3 through V6 Electronically signed by : Domingo Dugan, 10/18/2024 23:43:49
[2024-10-18] MEDS: ONDANSETRON 4MG/2ML VIAL 4 MG IV (16:51)
[2024-10-18] MEDS: MORPHINE 2MG/ML SYRINGE 2 MG IV ×2 (16:54→23:15)
[2024-10-18 17:51] LABS: POC Glucose,Bedside 179 gm/dL (70-110)
[2024-10-18 18:00] LABS: Amphetamine/Metha Screen,Urine Negative ng/ml (<1000)
[2024-10-18 18:01] LABS: Barbiturates Screen,Urine Negative ng/ml (<200); Benzodiazepines Screen,Urine Negative ng/ml (<200)
[2024-10-18 18:03] LABS: Methadone Screen,Urine Negative ng/ml (<300)
[2024-10-18 18:04] LABS: Opiate Screen,Urine Negative ng/ml (<300); Phencyclidine Screen,Urine Negative ng/ml (<25)
[2024-10-18] MEDS: KETOROLAC 30MG/ML VIAL 30 MG IV (18:20)
[2024-10-18] MEDS: ACETAMINOPHEN 1,000MG/100ML VIAL 1000 MG IV (18:21)
[2024-10-18 18:47] LABS: Troponin I < 0.01 ng/ml (0.00-0.034)
[2024-10-18 18:47] LABS: Hemoglobin A1C 10.3 % (4.0-6.0)
[2024-10-18] MEDS: BELLADONNA ALKALOIDS 60 ML ML PO (18:50)
[2024-10-18 18:53] LABS: Reflex Lactic Add Lactic Reflex
--- NOTE | 2024-10-18 18:57 | PC.NURSE ---
Devora speaking with Dr. Ewing.
[2024-10-18] MEDS: PANTOPRAZOLE SODIUM 80 MG in 0.9 % SODIUM CHLORIDE 100 ML 100 MG IV (19:39)
--- NOTE | 2024-10-18 20:25 | PC.NURSE ---
called for bed assignment
[2024-10-18 21:40] LABS: Free T4 (Free Thyroxine) 1.11 ng/dl (0.78-2.19)
[2024-10-18 21:53] LABS: Troponin I < 0.01 ng/ml (0.00-0.034)
[2024-10-18 21:54] LABS: Thyroid Stimulating Hormone 1.21 uIU/mL (0.465-4.68)
--- NOTE | 2024-10-18 21:55 | PC.NURSE ---
Addendum entered by Rowena Neumann RN 10/18/24 21:58: Completed based on what the patient states he takes at home, has not picked up refills. Original Note: When completing med rec, patient states he is unsure, when listing from old list, patient states yes , but medications have not been prescribed for some time or ran out of date supplied. Med rec will need to be completed from pharmacy.
[2024-10-18 22:18] LABS: POC Glucose,Bedside 123 gm/dL (70-110)
[2024-10-18] MEDS: MIDODRINE HCL 5 MG TABLET PO (22:29)
[2024-10-18] MEDS: 0.9 % SODIUM CHLORIDE 1000ML 500 ML 999 ML IV (22:29)
--- NOTE | 2024-10-18 22:39 | P.HP_ITS ---
<Statement entered by Naveen Cantu MD - 10/22/24 12:08> Personally evaluated patient and agree with the plan of care as outlined by the UTILITIES MANAGER. History of Present Illness *Admission Date: 10/18/24 *Reason for visit:: Chest pain *History of present illness: This is a 54-year-old male with a past medical history of coronary artery disease, DM2, tobacco use, GERD, hypertension, hyperlipidemia presents today for complaints of chest pain and dizziness and fatigue. He reports being seen in clinic today for toenail trimming and developed dizziness with paleness. He was noted by Dr. Coombs office to have near syncopal episode so was sent to the emergency department. He reports ongoing generalized fatigue, lethargy and dizziness for the last several days. He reports several episodes of hypotension at home. Denies any sick contacts. Denies any fever. Denies any vomiting or diarrhea. Emergency department workup notable for elevated D-dimer 0.93, lactic acid 2.2, glucose of 374 with negative troponin x 3. CTA chest notable for esophagitis but otherwise negative for acute process. He received IV fluids in the emergency department from 370-190. Given his concern for chest pain and history of coronary artery disease it was felt he would benefit from hospitalization. He is admitted to the hospitalist service at this time [facility] Disclaimer: The information contained in this section may have been updated after the patient was seen, as this information can be updated by other users. Medical History Angina pectoris Coronary arteritis Leukocytosis Cystic-bullous disease of lung Abnormal electrocardiogram [ECG] [EKG] Coronary artery disease Enlarged prostate Dizziness Syncope Cystic lung, congenital History of pneumothorax Atrial fibrillation and flutter Presence of stent in LAD coronary artery Pericardial effusion without cardiac tamponade PNA (pneumonia) Diabetes GERD (gastroesophageal reflux disease) Pericarditis Angina at rest History of heart attack Hyperlipidemia Palpitations Hypertension Heart murmur Arrhythmia History of left heart catheterization (LHC) RBBB (right bundle branch block with left anterior fascicular block) Surgical History History of cardiac cath Hx of heart artery stent Previous back surgery Family History Other Family history of COPD (chronic obstructive pulmonary disease) Family history of hyperlipidemia Family history of hypertension Family history of myocardial infarction Family history of stroke Lung cancer Social History (Updated 10/18/24 @ 22:03 by Rowena Neumann RN) Smoking Status: Former smoker tobacco type: cigarettes packs per day: 1 pack- years: 52 alcohol intake: former current occupational status: previously employed and disabled Travel in the last 8 weeks?: None Have you lived/traveled outside [place] in past 30 days?: No Contact w/someone who lives/traveled outside US past 30 days?: No Exposure to someone with infectious disease in past 14 days?: No Do you have a fever (greater than 100.4 F or 38 C)?: No Have you tested positive for COVID-19?: No Exposed to someone with COVID-19 in past 14 days?: No Do you have a sore throat?: No Do you have a cough?: No Do you have any weakness?: No Are you experiencing any nausea/vomitting?: No Do you have any diarrhea?: No Are you experiencing any unusual bleeding?: No Do you have any muscle aches/pain?: No Do you have any abdominal pain?: No Are you experiencing loss of taste or smell?: No Other Medical History Have you received the Flu Vaccine for this season: No Have you received the Pneumonia Vaccine: No Review of Systems Review of Systems Review of systems:: pertinent systems reviewed and negative unless documented below Review of systems (narrative): Negative except for HPI Meds Home Medications and Allergies Home Medications ?Medication ?Instructions ?Recorded ?Confirmed ?Type blood sugar diagnostic (Accu-Chek 01/17/24 10/18/24 H istory Guide test strips) lancets (Accu-Chek Softclix 01/17/24 10/18/24 History Lancets) duloxetine 30 mg capsule,delayed 30 mg PO DAILY 10/18/24 History release midodrine 5 mg tablet 5 mg PO DAILY 05/17/2410/18 History nitroglycerin 0.4 mg sublingual 0.4 mg sublingual 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 Chest 05/17/24 10/18/24 History tablet Pain rosuvastatin 40 mg tablet 40 mg PO HS 05/17/24 5 History blood-glucose sensor (Dexcom G7 #1 ea 08/02/24 5 History Sensor device) aspirin 81 mg capsule 81 mg PO DAILY 30 days #30 c aps 08/28/24 10/18/24 Rx prasugrel HCl 10 mg tablet 10 mg PO DAILY 30 days #30 tabs 08/28/24 10/18/24 Rx (Effient) empagliflozin 25 mg tablet 25 mg PO DAILY #30 tabs 03/0310/18/24 Rx (Jardiance) omeprazole 40 mg capsule,delayed 40 mg PO DAILY #90 ca ps 09/07/24 10/18/24 Rx release metoprolol succinate 50 mg 50 mg PO DAILY 10/18/2401/01 History tablet,extended release 24 hr ranolazine 1,000 mg 1,000 mg PO ONCE 10/18/24 History tablet,extended release,12 hr tamsulosin 0.4 mg capsule 0.4 mg PO DAILY 10/18/2401/01 History New Prescriptions to Start Prescriptions: Allergies Allergy/AdvReac Type Severity Reaction Status Date / Time bee venom protein (honey bee) Allergy Anaphylaxis Verified 10/18/24 13:27 gabapentin Allergy Anaphylaxis Verified 10/18/24 13:27 insect venom Allergy Anaphylaxis Verified 10/18/24 13:27 Exam Data for Last 24 hours Vital signs and Labs for Last 24 Hours: Temp Pulse Resp BP Pulse Ox O2 Del Method 98.2 F 88 14 124/76 96 Room Air 10/18/24 21:42 10/18/24 21:42 10/18/24 21:42 10/18/24 21:42 10/18/24 21:42 10/18/24 21:42 Laboratory Results - last 24 hr 10/18/24 14:13: POC Glucose 420 H* 10/18/24 14:35: WBC 8.0, RBC 4.90, Hgb 15.2, Hct 44.3, MCV 90.4, MCH 31.0, MCHC 34.3, RDW 12.7, Plt Count 223, MPV 10.6 H, Neut % (Auto) 46.8, Lymph % (Auto) 42.2, [place] % (Auto) 7.2, Eos % (Auto) 2.5, Baso % (Auto) 0.8, Neut # (Auto) 3.7, Lymph # (Auto) 3.4, [place] # (Auto) 0.6, Eos # (Auto) 0.2, Baso # (Auto) 0.1, D- Dimer 0.93 H, Sodium 137, Potassium 4.9, Chloride 108 H, Carbon Dioxide 23, Anion Gap 10.9, BUN 17, Creatinine 0.90, Estimated Creat Clear 97, Estimated GFR 84, Est GFR ( Amer) 102, Glucose 374 H, Hemoglobin A1c 10.3 H D, Calcium 9.5, Magnesium 1.8, Total Bilirubin 0.4, AST 57, ALT 43, Alkaline Phosphatase 78, Troponin I < 0.01, NT-Pro-B Natriuret Pep 101, Total Protein 7.0, Albumin 4.2, Globulin 2.8, Albumin/Globulin Ratio 1.5, Lipase 133, Acetone Level None detected 10/18/24 14:43: VBG pH 7.35, VBG pCO2 43.3, VBG pO2 50.9 H, VBG HCO3 23.5, VBG Total CO2 24.9, VBG O2 Saturation 86.2 H, VBG Base Excess -2.0, VBG Lactic Acid 2.2 H 10/18/24 14:45: Urine Opiates Screen Negative, Urine Methadone Screen Negative, Ur Barbituates Screen Negative, Ur Phencyclidine Scrn Negative, Ur Amphetamines Screen Negative, U Benzodiazepines Scrn Negative, Urine Cocaine Screen Negative, U Marijuana (THC) Screen Negative 10/18/24 14:50: Urine Color Yellow, Urine Appearance Clear, Urine pH 5.5, Ur Specific [place] 1.010, Urine Protein Negative, Urine Glucose (UA) 3+, Urine Ketones Negative, Urine Blood Negative, Urine Nitrate Negative, Urine Bilirubin Negative, Urine Urobilinogen 0.2, Ur Leukocyte Esterase Negative, Urine RBC Occasional, Urine WBC Occasional, Amorphous Sediment Trace, Urine Bacteria Trace, SARS-CoV-2 (PCR) Not detected, Influenza A Untype (PCR) Not detected, Influenza Type B (PCR) Not detected 10/18/24 17:44: POC Glucose 179 H 10/18/24 18:10: Troponin I < 0.01 10/18/24 20:58: Troponin I < 0.01, TSH 1.21, Free T4 1.11 10/18/24 22:11: POC Glucose 123 H I & O for Last 24 hours: Intake & Output 10/15/24 10/16/24 10/17/24 10/18/24 23:59 23:59 23:59 23:59 Intake Total 1999 Balance 1999 Weight 93.894 kg Constitutional Constitutional: no acute distress *Routine HEENT Exam Head: Present normocephalic Eye: Present EOMI and PERRL ENT: Present mucous membranes moist *Routine Neck Exam Neck: Present supple; Absent lymphadenopathy *Routine Respiratory Exam Respiratory: Present CTA bilaterally *Routine Cardiovascular Exam Cardiovascular: Present RRR *Routine Abdominal Exam Abdominal: Present soft and normoactive bowel sounds; Absent tenderness *Routine Rectal Exam Rectal:: deferred *Routine Genitalia Exam Genitalia:: deferred *Routine Extremities Exam Extremities: Absent cyanosis, clubbing or edema *Routine Skin Exam Skin: Present warm; Absent rash *Routine Neurological Exam Neurological: Present alert and oriented X3 Assessment and Plan *Assessment and plan (1) Hyperglycemia: Status: Acute Category: Medical Code(s): R73.9 - Hyperglycemia, unspecified (2) Unstable angina: Status: Acute Category: Medical Code(s): I20.0 - Unstable angina (3) Weakness: Status: Acute Category: Medical Code(s): R53.1 - Weakness (4) Chest pain: Status: Acute Category: Medical Code(s): R07.9 - Chest pain, unspecified (5) Coronary artery disease: Status: Acute Qualifiers: Coronary Disease-Associated Artery/Lesion type: [place] artery [place] vs. transplanted heart: [place] heart Associated angina: with other forms of angina Qualified Code(s): I25.118 - Atherosclerotic heart disease of [place] coronary artery with other forms of angina pectoris Category: Medical Code(s): I25.10 - Atherosclerotic heart disease of [place] coronary artery without angina pectoris (6) Diabetes: Status: Chronic Qualifiers: Diabetes mellitus type: type 2 Diabetes mellitus senior living insulin use: without ocean transportation intermediary use Diabetes mellitus complication status: without complication Qualified Code(s): E11.9 - Type 2 diabetes mellitus without complications Category: Medical Code(s): E11.9 - Type 2 diabetes mellitus without complications (7) Hypertension: Status: Chronic Qualifiers: Hypertension type: primary hypertension Qualified Code(s): I10 - Essential (primary) hypertension Category: Medical Code(s): I10 - Essential (primary) hypertension (8) Hyperlipidemia: Status: Chronic Qualifiers: Hyperlipidemia type: mixed hyperlipidemia Qualified Code(s): E78.2 - Mixed hyperlipidemia Category: Medical Code(s): E78.5 - Hyperlipidemia, unspecified Plan #Weakness Has been complaining of weakness, dizziness and fatigue for several weeks. Saw Kelsey Skinner in office on 09/12/2024 with similar complaint. Also complains of chest pain and pressure with and without activity. Mildly hypotensive in the ER with blood pressure of 90 systolic. Isosorbide was stopped this on this visit, Ranexa was continued and beta-demetri was cut in half. Did have improvement in blood pressure after IV fluid administration at office visit. Will give 500 bolus of IV fluids at this time. Last echocardiogram with normal EF Will check respiratory pathogen respiratory illness #Chest pain #Coronary artery disease Has been seen and followed closely by cardiology. CTA of the chest negative for cardiac abnormalities. EKG without change from baseline. Continue home Effient and aspirin Serial troponins negative. Consult cardiology in a.m. History of ZAKIYA ramus/LAD with other portions that are not amendable to stenting Hold beta-demetri at this time Hold antihypertensives but #T2DM with hyperglycemia Initially with a glucose of 460 with a downtrend to 170 after IV fluids A1c of 10 Continue sliding scale insulin #Hypertension Has been complaining of hypotension. Systolic of 90 upon admission today. Improved after IV fluids and home midodrine Hold antihypertensives at this time cardiology consult
[2024-10-18 22:41] LABS: Coronavirus 19, PCR Not Detected (NotDetected); Influenza A, PCR Not Detected (NotDetected); Influenza B, PCR Not Detected (NotDetected)
[2024-10-19] VITALS: PULSE 60
[2024-10-19] MEDS: ACETAMINOPHEN 325MG TAB 650 MG PO ×2 (03:12→08:44)
[2024-10-19 04:00] VITALS: BP 118/80; PULSE 50; PULSE 60; RESP 14; TEMP 36.8; O2SAT 96; BMI 27.5
--- NOTE | 2024-10-19 04:00 | PC.NURSE ---
Alert and oriented. Patient complained of pain, treated per mar. Patient has rested well tonight. Ambulates to the restroom with standby assist. SCDs applied on admission, patient requested these be taken off due to the feeling they make him feel in his feet. Room air. No other complaints. Call light in reach.
[2024-10-19 04:33] VITALS: BP 118/80; PULSE 60; RESP 14; TEMP 36.8; O2SAT 96; BMI 27.5
[2024-10-19 06:05] LABS: Hematocrit 41.4 % (42.0-52.0); Hemoglobin 13.7 g/dL (14.1-18.0); Immature Granulocytes % 0.3 %; Mean Corpuscular HGB Conc 33.1 g/dL (31.8-35.4); Mean Corpuscular Hemoglobin 31.2 pg (27.0-31.2); Mean Corpuscular Volume 94.3 fl (80-94); Nucleated Red Blood Cells % 0 %; Platelet Count 58 K/mm3 (142-424); Red Blood Count 4.39 M/mm3 (4.60-6.20); Red Cell Distribution Width-SD 44.5 fL; White Blood Count 6.1 K/mm3 (4.8-10.8)
[2024-10-19 06:14] LABS: POC Glucose,Bedside 145 gm/dL (70-110)
[2024-10-19] MEDS: MORPHINE 2MG/ML SYRINGE 2 MG IV (06:35)
--- NOTE | 2024-10-19 07:00 | CA_ITS ---
APPROVED REPORT EXAM: Comprehensive 2D, Doppler, and color-flow Echocardiogram Automotive Detailer: Louise Maciel RDCS Ht: 6 ft 0 in Wt: 207lbs BSA: 2.16 BP: 124/76 mmHg Indications: Chest pain M-Mode Dimensions RVDd 2.27 cm (0.9-2.6) LA Diam 3.81 cm (1.9-4.0) LVDd 5.46 cm (3.5-5.7) LVDs 4.26 cm (3.5-5.7) IVSd 1.06 cm (0.6-1.1) PWd 1.00 cm (0.6-1.1) EF (Teich) 43.90% FS 22.00% EDV (Teich) 145.00 mL ESV (Teich) 81.30 mL LV Diastology E Decel Time 147 (160-240 msec) E/A Ratio 1.3 Mitral Valve MV E Max Asa. 82.0 (40-130 cm/s) MV A Velocity 61.0 (40-130 cm/s) E/A Ratio 1.34 MV PHT 43.0 ms Left Ventricle The left ventricle is normal size. Left ventricular systolic function is normal. The left ventricular ejection fraction is within the normal range. There is increased left ventricular wall thickness. There is normal LV segmental wall motion. The left ventricular diastolic function is indeterminate. LVEF is 55% Right Ventricle The right ventricle is normal size. The right ventricular systolic function is normal. Atria The left atrium is mildly dilated. The right atrium size is normal. There is no color Doppler evidence of interatrial shunt. Aortic Valve The aortic valve is mildly thickened. There is no hemodynamically significant aortic valvular stenosis. Trace aortic regurgitation is present. Mitral Valve The mitral valve is normal in structure. No evidence of mitral valve stenosis. Mild mitral regurgitation is present. Tricuspid Valve The tricuspid valve leaflets are thin and pliable. Mild tricuspid regurgitation. RVSP is 20-25 mmHg. Pulmonic Valve The pulmonary valve is grossly normal in structure. Mild pulmonic valve regurgitation is present. Great Vessels The aortic root is normal in size. The ascending aorta is mildly dilated, measuring 3.8 cm in diameter. IVC is normal in size and collapses >50% with inspiration. Pericardium There is no pericardial effusion. Other Information Study Quality: Fair Conclusion Normal biventricular systolic function. Mild LA dilation. Mild MR, mild TR, mild OK. The ascending aorta is mildly dilated, measuring 3.8 cm in diameter. Electronically signed by : Kymberly Conklin MD 10/22/2024 01:30:24
[2024-10-19 07:37] VITALS: BP 129/85; PULSE 54; RESP 16; TEMP 36.8; O2SAT 94
[2024-10-19 08:00] VITALS: PULSE 55
[2024-10-19 08:19] LABS: Alanine Aminotransferase 32 U/L (12-78); Albumin Level 3.3 g/dl (3.5-5.0); Albumin/Globulin Ratio 1.3 (1.1-1.8); Alkaline Phosphatase 46 U/L (38-126); Anion Gap 8.7 mEq/L (5-15); Aspartate Amino Transferase 57 U/L (17-59); Bilirubin,Total 0.6 mg/dl (0.2-1.3); Blood Urea Nitrogen 13 mg/dl (9-20); Calcium 7.8 mg/dl (8.4-10.2); Carbon Dioxide 19 mmol/L (22.0-30.0); Chloride 111 mmol/L (98-107); Creatinine Clearance Estimated 95 mL/min (50-200); Creatinine,Serum 0.80 mg/dl (0.66-1.25); Estimated Glomerular Filt Rate 97 ml/min (>60); GFR (African American) 117 ML/MIN (>60); Globulin 2.6 g/dL (1.3-3.2); Glucose 142 mg/dl (74-100); Potassium 4.7 mmoL/L (3.5-5.1); Sodium 134 mmol/L (136-145); Total Protein,Serum 5.9 g/dl (6.3-8.2)
--- NOTE | 2024-10-19 08:34 | P.CONCA_ITS ---
History of Present Illness History of Present Illness Consult date: 10/19/24 Requesting physician: Naveen Cantu Consult reason: chest pain Chief complaint: Chest pain History of present illness: This is a 64-year-old gentleman who presented to the emergency department complaints of chest pain. The patient was at podiatry yesterday getting a nail trimming when he had sudden onset of dizziness and paleness. The patient had a near syncopal episode so he was sent to the emergency department by Dr. Mann. He reports just feeling very weak and tired with lethargy and dizziness for the last several days. He does report continuous episodes of hypotension at home. He is also having sharp pain in his chest. He states it is the pain that he always has and it is no worse or no better than normal for him. He was found to have an elevated D-dimer and elevated lactic acid as well as an elevated glucose in the emergency department. He ruled out for an TN. CTA of chest was not notable for esophagitis and stable aortic aneurysm. [facility] Disclaimer: The information contained in this section may have been updated after the patient was seen, as this information can be updated by other users. Medical History Angina pectoris Coronary arteritis Leukocytosis Cystic-bullous disease of lung Abnormal electrocardiogram [ECG] [EKG] Coronary artery disease Enlarged prostate Dizziness Syncope Cystic lung, congenital History of pneumothorax Atrial fibrillation and flutter Presence of stent in LAD coronary artery Pericardial effusion without cardiac tamponade PNA (pneumonia) Diabetes GERD (gastroesophageal reflux disease) Pericarditis Angina at rest History of heart attack Hyperlipidemia Palpitations Hypertension Heart murmur Arrhythmia History of left heart catheterization (LHC) RBBB (right bundle branch block with left anterior fascicular block) Surgical History History of cardiac cath Hx of heart artery stent Previous back surgery Family History Other Family history of COPD (chronic obstructive pulmonary disease) Family history of hyperlipidemia Family history of hypertension Family history of myocardial infarction Family history of stroke Lung cancer Social History (Updated 10/18/24 @ 22:03 by Rowena Neumann RN) Smoking Status: Former smoker tobacco type: cigarettes packs per day: 1 pack- years: 52 alcohol intake: former current occupational status: previously employed and disabled Travel in the last 8 weeks?: None Have you lived/traveled outside [place] in past 30 days?: No Contact w/someone who lives/traveled outside [place] past 30 days?: No Exposure to someone with infectious disease in past 14 days?: No Do you have a fever (greater than 100.4 F or 38 C)?: No Have you tested positive for COVID-19?: No Exposed to someone with COVID-19 in past 14 days?: No Do you have a sore throat?: No Do you have a cough?: No Do you have any weakness?: No Are you experiencing any nausea/vomitting?: No Do you have any diarrhea?: No Are you experiencing any unusual bleeding?: No Do you have any muscle aches/pain?: No Do you have any abdominal pain?: No Are you experiencing loss of taste or smell?: No Review of Systems Review of Systems Review of systems:: pertinent systems reviewed and negative unless documented below Constitutional Constitutional: Reports system reviewed and no additional complaints, except as documented, Reports fatigue and Reports lethargy Eyes Eyes: Reports system reviewed and no additional complaints, except as documented ENT Ears, Nose, Mouth, and Throat: Reports system reviewed and no additional complaints, except as documented and Reports dizziness *Cardiovascular Cardiovascular: Reports system reviewed and no additional complaints, except as documented, Reports chest pain, Reports chest pain at rest and Reports chest pain with activity *Respiratory Respiratory: Reports system reviewed and no additional complaints, except as documented *Gastrointestinal Gastrointestinal: Reports system reviewed and no additional complaints, except as documented *Genitourinary Genitourinary: Reports system reviewed and no additional complaints, except as documented *Musculoskeletal Musculoskeletal: Reports system reviewed and no additional complaints, except as documented Integumentary/Breasts Skin/Breast: Reports system reviewed and no additional complaints, except as documented *Neurologic Neurologic: Reports system reviewed and no additional complaints, except as documented and Reports dizziness Psychiatric Psychiatric: Reports system reviewed and no additional complaints, except as documented Endocrine Endocrine: Reports system reviewed and no additional complaints, except as documented and Reports fatigue Hematologic/Lymphatic Hematologic/Lymphatic: Reports system reviewed and no additional complaints, except as documented Allergic/Immunologic Allergic/Immunologic: Reports system reviewed and no additional complaints, except as documented Exam Data for Last 24 hours Vital signs and Labs for Last 24 Hours: Temp Pulse Resp BP Pulse Ox O2 Del Method 98.2 F 54 L 16 129/85 94 L Room Air 10/19/24 07:37 10/19/24 07:37 10/19/24 07:37 10/19/24 07:37 10/19/24 07:37 10/19/24 07:37 Laboratory Results - last 24 hr 10/18/24 14:13: POC Glucose 420 H* 10/18/24 14:35: WBC 8.0, RBC 4.90, Hgb 15.2, Hct 44.3, MCV 90.4, MCH 31.0, MCHC 34.3, RDW 12.7, Plt Count 223, MPV 10.6 H, Neut % (Auto) 46.8, Lymph % (Auto) 42.2, [place] % (Auto) 7.2, Eos % (Auto) 2.5, Baso % (Auto) 0.8, Neut # (Auto) 3.7, Lymph # (Auto) 3.4, [place] # (Auto) 0.6, Eos # (Auto) 0.2, Baso # (Auto) 0.1, D- Dimer 0.93 H, Sodium 137, Potassium 4.9, Chloride 108 H, Carbon Dioxide 23, Anion Gap 10.9, BUN 17, Creatinine 0.90, Estimated Creat Clear 97, Estimated GFR 84, Est GFR ( Amer) 102, Glucose 374 H, Hemoglobin A1c 10.3 H D, Calcium 9.5, Magnesium 1.8, Total Bilirubin 0.4, AST 57, ALT 43, Alkaline Phosphatase 78, Troponin I < 0.01, NT-Pro-B Natriuret Pep 101, Total Protein 7.0, Albumin 4.2, Globulin 2.8, Albumin/Globulin Ratio 1.5, Lipase 133, Acetone Level None d etected 10/18/24 14:43: VBG pH 7.35, VBG pCO2 43.3, VBG pO2 50.9 H, VBG HCO3 23.5, VBG Total CO2 24.9, VBG O2 Saturation 86.2 H, VBG Base Excess -2.0, VBG Lactic Acid 2.2 H 10/18/24 14:45: Urine Opiates Screen Negative, Urine Methadone Screen Negative, Ur Barbituates Screen Negative, Ur Phencyclidine Scrn Negative, Ur Amphetamines Screen Negative, U Benzodiazepines Scrn Negative, Urine Cocaine Screen Negative, U Marijuana (THC) Screen Negative 10/18/24 14:50: Urine Color Yellow, Urine Appearance Clear, Urine pH 5.5, Ur Specific [place] 1.010, Urine Protein Negative, Urine Glucose (UA) 3+, Urine Ketones Negative, Urine Blood Negative, Urine Nitrate Negative, Urine Bilirubin Negative, Urine Urobilinogen 0.2, Ur Leukocyte Esterase Negative, Urine RBC Occasional, Urine WBC Occasional, Amorphous Sediment Trace, Urine Bacteria Trace, SARS-CoV-2 (PCR) Not detected, Influenza A Untype (PCR) Not detected, Influenza Type B (PCR) Not detected 10/18/24 17:44: POC Glucose 179 H 10/18/24 18:10: Troponin I < 0.01 10/18/24 20:58: Troponin I < 0.01, TSH 1.21, Free T4 1.11 10/18/24 22:11: POC Glucose 123 H 10/18/24 22:30: SARS-CoV-2 (PCR) Not detected, Influenza Type A (PCR) Not detected, Influenza Type B (PCR) Not detected, RSV (PCR) Not detected, Rhinovirus (PCR) Not detected 10/19/24 05:43: WBC 6.1, RBC 4.39 L, Hgb 13.7 L, Hct 41.4 L, MCV 94.3 H, MCH 31.2, MCHC 33.1, RDW 12.9, Plt Count 58 L D, MPV 11.0 H, Neut % (Auto) 32.2 L, Lymph % (Auto) 55.6 H, [place] % (Auto) 7.0, Eos % (Auto) 3.9, Baso % (Auto) 1.0, Neut # (Auto) 2.0, Lymph # (Auto) 3.4, [place] # (Auto) 0.4, Eos # (Auto) 0.2, Baso # (Auto) 0.1, Sodium 134 L, Potassium 4.7, Chloride 111 H, Carbon Dioxide 19 L, Anion Gap 8.7, BUN 13, Creatinine 0.80, Estimated Creat Clear 95, Estimated GFR 97, Est GFR ( Amer) 117, Glucose 142 H D, Calcium 7.8 L, Total Bilirubin 0.6, AST 57, ALT 32 D, Alkaline Phosphatase 46, Total Protein 5.9 L, Albumin 3.3 L D, Globulin 2.6, Albumin/Globulin Ratio 1.3 10/19/24 06:07: POC Glucose 145 H I & O for Last 24 hours: Intake & Output 10/16/24 10/17/24 10/18/24 10/19/24 23:59 23:59 23:59 23:59 Intake Total 2600 / 2780 180 / 180 Output Total 0 / 0 Balance 2600 / 2780 180 / 180 Weight 207 lb 203 lb 3.2 oz Constitutional Constitutional: no acute distress and average body habitus *Routine HEENT Exam Head: Present normocephalic and atraumatic ENT: Present mucous membranes moist *Routine Neck Exam Neck: Present supple, full ROM and normal carotid upstroke; Absent JVD, carotid bruit or lymphadenopathy *Routine Respiratory Exam Respiratory: Present CTA bilaterally, normal respiratory effort, able to speak in complete sentences and symmetric chest movement *Routine Cardiovascular Exam Cardiovascular: Present RRR, Normal S1 and Normal S2; Absent murmur or gallop *Routine Abdominal Exam Abdominal: Present soft and normoactive bowel sounds; Absent tenderness, distended or organomegaly *Routine Extremities Exam Extremities: Present full ROM, pulses intact and normal capillary refill; Absent cyanosis, clubbing or edema *Routine Skin Exam Skin: Present intact and warm; Absent erythema *Routine Neurological Exam Neurological: Present alert, oriented X3 and CN II-XII intact; Absent sensory deficit or motor deficit Routine Psychiatric Exam Psychiatric: Present normal affect Meds Home Medications and Allergies Home Medications ?Medication ?Instructions ?Recorded ?Confirmed ?Type blood sugar diagnostic (Accu-Chek 01/17/24 10/18/24 H istory Guide test strips) lancets (Accu-Chek Softclix 01/17/24 10/18/24 History Lancets) duloxetine 30 mg capsule,delayed 30 mg PO DAILY 10/18/24 History release midodrine 5 mg tablet 5 mg PO DAILY 05/17/2410/18 History nitroglycerin 0.4 mg sublingual 0.4 mg sublingual Q5MI DORMITORY MAID PRN Chest 05/17/24 10/18/24 History tablet Pain rosuvastatin 40 mg tablet 40 mg PO HS 05/17/24 5 History blood-glucose sensor (Dexcom G7 #1 ea 08/02/24 5 History Sensor device) aspirin 81 mg capsule 81 mg PO DAILY 30 days #30 c aps 08/28/24 10/18/24 Rx prasugrel HCl 10 mg tablet 10 mg PO DAILY 30 days #30 tabs 08/28/24 10/18/24 Rx (Effient) empagliflozin 25 mg tablet 25 mg PO DAILY #30 tabs 03/0310/18/24 Rx (Jardiance) omeprazole 40 mg capsule,delayed 40 mg PO DAILY #90 ca ps 09/07/24 10/18/24 Rx release metoprolol succinate 50 mg 50 mg PO DAILY 10/18/2401/01 History tablet,extended release 24 hr ranolazine 1,000 mg 1,000 mg PO ONCE 10/18/24 History tablet,extended release,12 hr tamsulosin 0.4 mg capsule 0.4 mg PO DAILY 10/18/2401/01 History New Prescriptions to Start Prescriptions: Allergies Allergy/AdvReac Type Severity Reaction Status Date / Time bee venom protein (honey bee) Allergy Anaphylaxis Verified 10/18/24 13:27 gabapentin Allergy Anaphylaxis Verified 10/18/24 13:27 insect venom Allergy Anaphylaxis Verified 10/18/24 13:27 Assessment and Plan *Assessment and plan (1) Angina pectoris: Status: Acute Category: Medical Code(s): I20.9 - Angina pectoris, unspecified (2) Coronary artery disease: Status: Acute Qualifiers: Coronary Disease-Associated Artery/Lesion type: [place] artery [place] vs. transplanted heart: [place] heart Associated angina: with other forms of angina Qualified Code(s): I25.118 - Atherosclerotic heart disease of [place] coronary artery with other forms of angina pectoris Category: Medical Code(s): I25.10 - Atherosclerotic heart disease of [place] coronary artery without angina pectoris (3) Hypotension: Status: Acute Qualifiers: Hypotension type: unspecified hypotension type Qualified Code(s): I95.9 - Hypotension, unspecified Category: Medical Code(s): I95.9 - Hypotension, unspecified (4) Symptomatic bradycardia: Status: Acute Category: Medical Code(s): R00.1 - Bradycardia, unspecified (5) Hyperlipidemia: Status: Chronic Qualifiers: Hyperlipidemia type: mixed hyperlipidemia Qualified Code(s): E78.2 - Mixed hyperlipidemia Category: Medical Code(s): E78.5 - Hyperlipidemia, unspecified (6) Diabetes: Status: Chronic Qualifiers: Diabetes mellitus type: type 2 Diabetes mellitus mcc insulin use: without assistant terminal manager use Diabetes mellitus complication status: without complication Qualified Code(s): E11.9 - Type 2 diabetes mellitus without complications Category: Medical Code(s): E11.9 - Type 2 diabetes mellitus without complications (7) GERD (gastroesophageal reflux disease): Status: Acute Qualifiers: Esophagitis presence: esophagitis presence not specified Qualified Code(s): K21.9 - Gastro-esophageal reflux disease without esophagitis Category: Medical Code(s): K21.9 - Gastro-esophageal reflux disease without esophagitis Plan Plan: 1. The patient was admitted to the hospital with chest pain. He ruled out for an TN. No plans for invasive left cardiac catheterization at this time. He is on Ranexa. Continue this medication. Continue aspirin and Effient for dual antiplatelet therapy. 2. The patient has been having issues with hypotension and has been having to take midodrine. Will keep him on his midodrine and increase the dose to 5 mg 3 times daily for better blood pressure control. 3. The patient is also having symptomatic bradycardia. Will stop his metoprolol. 4. His LDL goal is less than 55. His LDL was 71 in July 2024. Continue rosuvastatin. 5. The patient is diabetic. He will need aggressive control of his diabetes. Will defer management of this to the hospitalist. 6. No further recommendations at this time from a cardiac standpoint. The patient can be discharged home today from a cardiac standpoint with follow-up in cardiology clinic next week. If he is still symptomatic next week then can consider further ischemic evaluation at that time. The patient will need to be discharged on the following cardiac medications: Aspirin 81 mg daily Jardiance 25 mg daily Midodrine 5 mg 3 times daily Omeprazole 40 mg daily Effient 10 mg daily Ranexa 1000 mg p.o. twice daily Crestor 40 mg nightly Thank you for the opportunity to help participate in the care of this patient. All recommendations and orders are per Dr. Conklin.
[2024-10-19] MEDS: ASPIRIN EC 81MG TABLET 81 MG PO (08:44)
[2024-10-19] MEDS: ONDANSETRON 4MG/2ML VIAL 4 MG IV (08:44)
[2024-10-19] MEDS: MIDODRINE HCL 5 MG TABLET PO (08:45)
--- NOTE | 2024-10-19 09:32 | HMH.PHAINT1 ---
Pharmacy Intervention Comments: MEDICATION RECONCILIATION COMPLETED ON PATIENT USING EXTERNAL FILL HISTORY FROM PHARMACY AND LIST FROM CARDIOLOGY OFFICE. -CORTNEY SIMON, VITALIYD
[2024-10-19 09:59] LABS: POC Glucose,Bedside 119 gm/dL (70-110)
--- NOTE | 2024-10-19 10:21 | EXP.DC.SUM ---
General Admission date:: 10/18/24 HPI HPI HPI: This is a 54-year-old male with a past medical history of coronary artery disease, DM2, tobacco use, GERD, hypertension, hyperlipidemia presents today for complaints of chest pain and dizziness and fatigue. He reports being seen in clinic today for toenail trimming and developed dizziness with paleness. He was noted by Dr. Coombs office to have near syncopal episode so was sent to the emergency department. He reports ongoing generalized fatigue, lethargy and dizziness for the last several days. He reports several episodes of hypotension at home. Denies any sick contacts. Denies any fever. Denies any vomiting or diarrhea. Emergency department workup notable for elevated D-dimer 0.93, lactic acid 2.2, glucose of 374 with negative troponin x 3. CTA chest notable for esophagitis but otherwise negative for acute process. He received IV fluids in the emergency department from 370-190. Given his concern for chest pain and history of coronary artery disease it was felt he would benefit from hospitalization. He is admitted to the hospitalist service at this time Hospital Course Hospital Course Hospital Course: Tashi Martin is a 63-year-old male who presented with lightheadedness at podiatry office appointment in addition to chest pain. #Lightheadedness #Orthostatic hypotension #Chest pain #History of CAD ? Patient has a longstanding history of orthostatic hypotension on midodrine. Blood pressures in the ED soft with systolics in the 90s. ? During recent cardiology clinic on 09/12/2024, Imdur was stopped, Ranexa was continued and metoprolol dose was decreased by 50%. ? Cardiology consulted, increase midodrine to 5 mg 3 times a day and stop metoprolol. Patient feeling better, blood pressure improved to 129/85. ? [facility] on 08/28/2024, received 2 stents to LAD but did show severe apical LAD disease not amenable to stenting or bypass surgery per Dr. Ewing. Will continue medical management at this time. ? Continue home aspirin 81 mg, prasugrel 10 mg, rosuvastatin 40 mg, ranolazine 1000 mg twice daily. Discontinued home metoprolol succinate 50 mg. #Type 2 diabetes ? Hemoglobin A1c 10.3% on 10/18/2024. Above goal perforation. ? Continue home Toujeo 46 units nightly, pregabalin. ? Started Januvia 50 mg daily. Will need to follow-up with PCP for further management. #GERD ? Continue home omeprazole. #Low back pain with lumbar fusion #Anxiety/depression ? Continue home duloxetine. ? Neurostimulator in place. Planning to follow-up with pain management in 1 week. #BPH ? Continue home tamsulosin 0.4 mg nightly. Total time spent on discharge: 31 minutes on chart review, counseling, documentation, and direct care with patient. Exam Data for Last 24 hours Vital signs and Labs for Last 24 Hours: Temp Pulse Resp BP Pulse Ox O2 Del Method O2 Flow Rate 98.2 F 55 L 16 129/85 94 L Nasal Cannula 1.5 10/19/24 07:37 10/19/24 08:00 10/19/24 07:37 10/19/24 07:37 10/19/24 07:37 10/19/24 08:55 10/19/24 08:55 Laboratory Results - last 24 hr 10/18/24 14:13: POC Glucose 420 H* 10/18/24 14:35: WBC 8.0, RBC 4.90, Hgb 15.2, Hct 44.3, MCV 90.4, MCH 31.0, MCHC 34.3, RDW 12.7, Plt Count 223, MPV 10.6 H, Neut % (Auto) 46.8, Lymph % (Auto) 42.2, [place] % (Auto) 7.2, Eos % (Auto) 2.5, Baso % (Auto) 0.8, Neut # (Auto) 3.7, Lymph # (Auto) 3.4, [place] # (Auto) 0.6, Eos # (Auto) 0.2, Baso # (Auto) 0.1, D-Dimer 0.93 H, Sodium 137, Potassium 4.9, Chloride 108 H, Carbon Dioxide 23, Anion Gap 10.9, BUN 17, Creatinine 0.90, Estimated Creat Clear 97, Estimated GFR 84, Est GFR ( Amer) 102, Glucose 374 H, Hemoglobin A1c 10.3 H D, Calcium 9.5, Magnesium 1.8, Total Bilirubin 0.4, AST 57, ALT 43, Alkaline Phosphatase 78, Troponin I < 0.01, NT-Pro-B Natriuret Pep 101, Total Protein 7.0, Albumin 4.2, Globulin 2.8, Albumin/Globulin Ratio 1.5, Lipase 133, Acetone Level None detected 10/18/24 14:43: VBG pH 7.35, VBG pCO2 43.3, VBG pO2 50.9 H, VBG HCO3 23.5, VBG Total CO2 24.9, VBG O2 Saturation 86.2 H, VBG Base Excess -2.0, VBG Lactic Acid 2.2 H 10/18/24 14:45: Urine Opiates Screen Negative, Urine Methadone Screen Negative, Ur Barbituates Screen Negative, Ur Phencyclidine Scrn Negative, Ur Amphetamines Screen Negative, U Benzodiazepines Scrn Negative, Urine Cocaine Screen Negative, U Marijuana (THC) Screen Negative 10/18/24 14:50: Urine Color Yellow, Urine Appearance Clear, Urine pH 5.5, Ur Specific [place] 1.010, Urine Protein Negative, Urine Glucose (UA) 3+, Urine Ketones Negative, Urine Blood Negative, Urine Nitrate Negative, Urine Bilirubin Negative, Urine Urobilinogen 0.2, Ur Leukocyte Esterase Negative, Urine RBC Occasional, Urine WBC Occasional, Amorphous Sediment Trace, Urine Bacteria Trace, SARS-CoV-2 (PCR) Not detected, Influenza A Untype (PCR) Not detected, Influenza Type B (PCR) Not detected 10/18/24 17:44: POC Glucose 179 H 10/18/24 18:10: Troponin I < 0.01 10/18/24 20:58: Troponin I < 0.01, TSH 1.21, Free T4 1.11 10/18/24 22:11: POC Glucose 123 H 10/18/24 22:30: SARS-CoV-2 (PCR) Not detected, Influenza Type A (PCR) Not detected, Influenza Type B (PCR) Not detected, RSV (PCR) Not detected, Rhinovirus (PCR) Not detected 10/19/24 05:43: WBC 6.1, RBC 4.39 L, Hgb 13.7 L, Hct 41.4 L, MCV 94.3 H, MCH 31.2, MCHC 33.1, RDW 12.9, Plt Count 58 L D, MPV 11.0 H, Neut % (Auto) 32.2 L, Lymph % (Auto) 55.6 H, [place] % (Auto) 7.0, Eos % (Auto) 3.9, Baso % (Auto) 1.0, Neut # (Auto) 2.0, Lymph # (Auto) 3.4, [place] # (Auto) 0.4, Eos # (Auto) 0.2, Baso # (Auto) 0.1, Sodium 134 L, Potassium 4.7, Chloride 111 H, Carbon Dioxide 19 L, Anion Gap 8.7, BUN 13, Creatinine 0.80, Estimated Creat Clear 95, Estimated GFR 97, Est GFR ( Amer) 117, Glucose 142 H D, Calcium 7.8 L, Total Bilirubin 0.6, AST 57, ALT 32 D, Alkaline Phosphatase 46, Total Protein 5.9 L, Albumin 3.3 L D, Globulin 2.6, Albumin/Globulin Ratio 1.3 10/19/24 06:07: POC Glucose 145 H 10/19/24 09:53: POC Glucose 119 H Temp Pulse Resp BP Pulse Ox O2 Del Method 99.5 F 79 23 122/78 95 Room Air 10/30/24 06:50 10/30/24 10:22 10/30/24 07:30 10/30/24 10:22 10/30/24 07:30 10/30/24 09:00 Laboratory Results - last 24 hr 10/30/24 04:10: WBC 12.7 H, RBC 4.48 L, Hgb 14.0 L, Hct 40.3 L, MCV 90.0, MCH 31.3 H, MCHC 34.7, RDW 12.6, Plt Count 177, MPV 10.6 H, Neut % (Auto) 65.2, Lymph % (Auto) 25.9, [place] % (Auto) 6.8, Eos % (Auto) 1.3, Baso % (Auto) 0.5, Neut # (Auto) 8.3 H, Lymph # (Auto) 3.3, [place] # (Auto) 0.9, Eos # (Auto) 0.2, Baso # (Auto) 0.1, PT 11.6, INR 1.05, VBG pH 7.31, VBG pCO2 38.9, VBG pO2 63.8 H, VBG HCO3 19.3 L, VBG Total CO2 20.5 L, VBG O2 Saturation 91.2 H, VBG Base Excess -6.9 L, VBG Lactic Acid 2.1 H, Sodium 135 L, Potassium 4.4, Chloride 103, Carbon Dioxide 22, Anion Gap 14.4, BUN 19, Creatinine 0.80, Estimated Creat Clear 96, Estimated GFR 97, Est GFR ( Amer) 117, Glucose 332 H, Calcium 9.3, Total Bilirubin 0.6, AST 37, ALT 34, Alkaline Phosphatase 83, Troponin I < 0.01, NT-Pro-B Natriuret Pep 291 H, Total Protein 6.3, Albumin 4.0, Globulin 2.3, Albumin/Globulin Ratio 1.7, Plasma/Serum Alcohol < 10, Acetone Level None detected 10/30/24 05:45: Urine Color Yellow, Urine Appearance Clear, Urine pH 6.0, Ur Specific [place] <= 1.005, Urine Protein Negative, Urine Glucose (UA) 3+, Urine Ketones Negative, Urine Blood Negative, Urine Nitrate Negative, Urine Bilirubin Negative, Urine Urobilinogen 0.2, Ur Leukocyte Esterase Negative, Urine WBC Occasional, Ur Squamous Epith Cells 3-5, Urine Bacteria Trace, Urine Opiates Screen Negative, Urine Methadone Screen Negative, Ur Barbituates Screen Negative, Ur Phencyclidine Scrn Negative, Ur Amphetamines Screen Negative, U Benzodiazepines Scrn Negative, Urine Cocaine Screen Negative, U Marijuana (THC) Screen Negative 10/30/24 07:16: Troponin I < 0.01 10/30/24 08:55: Lactate 1.7 10/30/24 10:37: POC Glucose 346 H* I & O for Last 24 hours: Intake & Output 10/16/24 10/17/24 10/18/24 10/19/24 23:59 23:59 23:59 23:59 Intake Total 2600 / 2780 180 / 180 Output Total 0 / 0 500 / 500 Balance 2600 / 2780 -320 / -320 Weight 93.894 kg 92.17 kg Intake & Output 10/27/24 10/28/24 10/29/24 10/30/24 23:59 23:59 23:59 23:59 Intake Total 1000 / 1000 Output Total 400 / 400 Balance 600 / 600 Weight 208 lb Constitutional Constitutional: no acute distress *Routine Respiratory Exam Respiratory: Present CTA bilaterally and symmetric chest movement *Routine Cardiovascular Exam Cardiovascular: Present RRR, Normal S1 and Normal S2 *Routine Abdominal Exam Abdominal: Present soft and normoactive bowel sounds; Absent tenderness *Routine Extremities Exam Extremities: Present full ROM and normal capillary refill; Absent edema *Routine Skin Exam Skin: Present intact, dry and warm Detailed Neck Exam: Thyroids Thyroid: Absent bruit Results Data Completed and Pending Labs on day of discharge: Labs from last 24 hours 10/19/24 10/19/24 10/19/24 09:53 06:07 05:43 WBC 6.1 RBC 4.39 L Hgb 13.7 L Hct 41.4 L MCV 94.3 H MCH 31.2 MCHC 33.1 RDW 12.9 Plt Count 58 L D MPV 11.0 H Neut % (Auto) 32.2 L Lymph % (Auto) 55.6 H [place] % (Auto) 7.0 Eos % (Auto) 3.9 Baso % (Auto) 1.0 Neut # (Auto) 2.0 Lymph # (Auto) 3.4 [place] # (Auto) 0.4 Eos # (Auto) 0.2 Baso # (Auto) 0.1 D-Dimer VBG pH VBG pCO2 VBG pO2 VBG HCO3 VBG Total CO2 VBG O2 Saturation VBG Base Excess VBG Lactic Acid Sodium 134 L Potassium 4.7 Chloride 111 H Carbon Dioxide 19 L Anion Gap 8.7 BUN 13 Creatinine 0.80 Estimated Creat Clear 95 Estimated GFR 97 Est GFR ( Amer) 117 Glucose 142 H D POC Glucose 119 H 145 H Hemoglobin A1c Calcium 7.8 L Magnesium Total Bilirubin 0.6 AST 57 ALT 32 D Alkaline Phosphatase 46 Troponin I NT-Pro-B Natriuret Pep Total Protein 5.9 L Albumin 3.3 L D Globulin 2.6 Albumin/Globulin Ratio 1.3 Lipase TSH Free T4 Urine Color Urine Appearance Urine pH Ur Specific [place] Urine Protein Urine Glucose (UA) Urine Ketones Urine Blood Urine Nitrate Urine Bilirubin Urine Urobilinogen Ur Leukocyte Esterase Urine RBC Urine WBC Amorphous Sediment Urine Bacteria Urine Opiates Screen Urine Methadone Screen Ur Barbituates Screen Ur Phencyclidine Scrn Ur Amphetamines Screen U Benzodiazepines Scrn Urine Cocaine Screen U Marijuana (THC) Screen Acetone Level SARS-CoV-2 (PCR) Influenza Type A (PCR) Influenza A Untype (PCR) Influenza Type B (PCR) RSV (PCR) Rhinovirus (PCR) 10/18/24 10/18/24 10/18/24 22:30 22:11 20:58 WBC RBC Hgb Hct MCV MCH MCHC RDW Plt Count MPV Neut % (Auto) Lymph % (Auto) [place] % (Auto) Eos % (Auto) Baso % (Auto) Neut # (Auto) Lymph # (Auto) [place] # (Auto) Eos # (Auto) Baso # (Auto) D-Dimer VBG pH VBG pCO2 VBG pO2 VBG HCO3 VBG Total CO2 VBG O2 Saturation VBG Base Excess VBG Lactic Acid Sodium Potassium Chloride Carbon Dioxide Anion Gap BUN Creatinine Estimated Creat Clear Estimated GFR Est GFR ( Amer) Glucose POC Glucose 123 H Hemoglobin A1c Calcium Magnesium Total Bilirubin AST ALT Alkaline Phosphatase Troponin I < 0.01 NT-Pro-B Natriuret Pep Total Protein Albumin Globulin Albumin/Globulin Ratio Lipase TSH 1.21 Free T4 1.11 Urine Color Urine Appearance Urine pH Ur Specific [place] Urine Protein Urine Glucose (UA) Urine Ketones Urine Blood Urine Nitrate Urine Bilirubin Urine Urobilinogen Ur Leukocyte Esterase Urine RBC Urine WBC Amorphous Sediment Urine Bacteria Urine Opiates Screen Urine Methadone Screen Ur Barbituates Screen Ur Phencyclidine Scrn Ur Amphetamines Screen U Benzodiazepines Scrn Urine Cocaine Screen U Marijuana (THC) Screen Acetone Level SARS-CoV-2 (PCR) Not detected Influenza Type A (PCR) Not detected Influenza A Untype (PCR) Influenza Type B (PCR) Not detected RSV (PCR) Not detected Rhinovirus (PCR) Not detected 10/18/24 10/18/24 10/18/24 18:10 17:44 14:50 WBC RBC Hgb Hct MCV MCH MCHC RDW Plt Count MPV Neut % (Auto) Lymph % (Auto) [place] % (Auto) Eos % (Auto) Baso % (Auto) Neut # (Auto) Lymph # (Auto) [place] # (Auto) Eos # (Auto) Baso # (Auto) D-Dimer VBG pH VBG pCO2 VBG pO2 VBG HCO3 VBG Total CO2 VBG O2 Saturation VBG Base Excess VBG Lactic Acid Sodium Potassium Chloride Carbon Dioxide Anion Gap BUN Creatinine Estimated Creat Clear Estimated GFR Est GFR ( Amer) Glucose POC Glucose 179 H Hemoglobin A1c Calcium Magnesium Total Bilirubin AST ALT Alkaline Phosphatase Troponin I < 0.01 NT-Pro-B Natriuret Pep Total Protein Albumin Globulin Albumin/Globulin Ratio Lipase TSH Free T4 Urine Color Yellow Urine Appearance Clear Urine pH 5.5 Ur Specific [place] 1.010 Urine Protein Negative Urine Glucose (UA) 3+ Urine Ketones Negative Urine Blood Negative Urine Nitrate Negative Urine Bilirubin Negative Urine Urobilinogen 0.2 Ur Leukocyte Esterase Negative Urine RBC Occasional Urine WBC Occasional Amorphous Sediment Trace Urine Bacteria Trace Urine Opiates Screen Urine Methadone Screen Ur Barbituates Screen Ur Phencyclidine Scrn Ur Amphetamines Screen U Benzodiazepines Scrn Urine Cocaine Screen U Marijuana (THC) Screen Acetone Level SARS-CoV-2 (PCR) Not detected Influenza Type A (PCR) Influenza A Untype (PCR) Not detected Influenza Type B (PCR) Not detected RSV (PCR) Rhinovirus (PCR) 10/18/24 10/18/24 10/18/24 14:45 14:43 14:35 WBC 8.0 RBC 4.90 Hgb 15.2 Hct 44.3 MCV 90.4 MCH 31.0 MCHC 34.3 RDW 12.7 Plt Count 223 MPV 10.6 H Neut % (Auto) 46.8 Lymph % (Auto) 42.2 [place] % (Auto) 7.2 Eos % (Auto) 2.5 Baso % (Auto) 0.8 Neut # (Auto) 3.7 Lymph # (Auto) 3.4 [place] # (Auto) 0.6 Eos # (Auto) 0.2 Baso # (Auto) 0.1 D-Dimer 0.93 H VBG pH 7.35 VBG pCO2 43.3 VBG pO2 50.9 H VBG HCO3 23.5 VBG Total CO2 24.9 VBG O2 Saturation 86.2 H VBG Base Excess -2.0 VBG Lactic Acid 2.2 H Sodium 137 Potassium 4.9 Chloride 108 H Carbon Dioxide 23 Anion Gap 10.9 BUN 17 Creatinine 0.90 Estimated Creat Clear 97 Estimated GFR 84 Est GFR ( Amer) 102 Glucose 374 H POC Glucose Hemoglobin A1c 10.3 H D Calcium 9.5 Magnesium 1.8 Total Bilirubin 0.4 AST 57 ALT 43 Alkaline Phosphatase 78 Troponin I < 0.01 NT-Pro-B Natriuret Pep 101 Total Protein 7.0 Albumin 4.2 Globulin 2.8 Albumin/Globulin Ratio 1.5 Lipase 133 TSH Free T4 Urine Color Urine Appearance Urine pH Ur Specific [place] Urine Protein Urine Glucose (UA) Urine Ketones Urine Blood Urine Nitrate Urine Bilirubin Urine Urobilinogen Ur Leukocyte Esterase Urine RBC Urine WBC Amorphous Sediment Urine Bacteria Urine Opiates Screen Negative Urine Methadone Screen Negative Ur Barbituates Screen Negative Ur Phencyclidine Scrn Negative Ur Amphetamines Screen Negative U Benzodiazepines Scrn Negative Urine Cocaine Screen Negative U Marijuana (THC) Screen Negative Acetone Level None detected SARS-CoV-2 (PCR) Influenza Type A (PCR) Influenza A Untype (PCR) Influenza Type B (PCR) RSV (PCR) Rhinovirus (PCR) 10/18/24 14:13 WBC RBC Hgb Hct MCV MCH MCHC RDW Plt Count MPV Neut % (Auto) Lymph % (Auto) [place] % (Auto) Eos % (Auto) Baso % (Auto) Neut # (Auto) Lymph # (Auto) [place] # (Auto) Eos # (Auto) Baso # (Auto) D-Dimer VBG pH VBG pCO2 VBG pO2 VBG HCO3 VBG Total CO2 VBG O2 Saturation VBG Base Excess VBG Lactic Acid Sodium Potassium Chloride Carbon Dioxide Anion Gap BUN Creatinine Estimated Creat Clear Estimated GFR Est GFR ( Amer) Glucose POC Glucose 420 H* Hemoglobin A1c Calcium Magnesium Total Bilirubin AST ALT Alkaline Phosphatase Troponin I NT-Pro-B Natriuret Pep Total Protein Albumin Globulin Albumin/Globulin Ratio Lipase TSH Free T4 Urine Color Urine Appearance Urine pH Ur Specific [place] Urine Protein Urine Glucose (UA) Urine Ketones Urine Blood Urine Nitrate Urine Bilirubin Urine Urobilinogen Ur Leukocyte Esterase Urine RBC Urine WBC Amorphous Sediment Urine Bacteria Urine Opiates Screen Urine Methadone Screen Ur Barbituates Screen Ur Phencyclidine Scrn Ur Amphetamines Screen U Benzodiazepines Scrn Urine Cocaine Screen U Marijuana (THC) Screen Acetone Level SARS-CoV-2 (PCR) Influenza Type A (PCR) Influenza A Untype (PCR) Influenza Type B (PCR) RSV (PCR) Rhinovirus (PCR) DS: Diagnosis Discharge Diagnosis (1) Angina pectoris: Status: Acute Code(s): I20.9 - Angina pectoris, unspecified (2) Coronary artery disease: Status: Acute Code(s): I25.10 - Atherosclerotic heart disease of [place] coronary artery without angina pectoris Qualifiers: Associated angina: with other forms of angina Coronary Disease-Associated Artery/Lesion type: [place] artery [place] vs. transplanted heart: [place] heart Qualified Code(s): I25.118 - Atherosclerotic heart disease of [place] coronary artery with other forms of angina pectoris (3) Hypotension: Status: Acute Code(s): I95.9 - Hypotension, unspecified Qualifiers: Hypotension type: unspecified hypotension type Qualified Code(s): I95.9 - Hypotension, unspecified (4) Symptomatic bradycardia: Status: Acute Code(s): R00.1 - Bradycardia, unspecified (5) Hyperlipidemia: Status: Chronic Code(s): E78.5 - Hyperlipidemia, unspecified Qualifiers: Hyperlipidemia type: mixed hyperlipidemia Qualified Code(s): E78.2 - Mixed hyperlipidemia (6) Diabetes: Status: Chronic Code(s): E11.9 - Type 2 diabetes mellitus without complications Qualifiers: Diabetes mellitus complication status: without complication Diabetes mellitus custodial insulin use: without custodial use Diabetes mellitus type: type 2 Qualified Code(s): E11.9 - Type 2 diabetes mellitus without complications (7) GERD (gastroesophageal reflux disease): Status: Acute Code(s): K21.9 - Gastro-esophageal reflux disease without esophagitis Qualifiers: Esophagitis presence: esophagitis presence not specified Qualified Code(s): K21.9 - Gastro-esophageal reflux disease without esophagitis (8) Orthostatic hypotension: Status: Acute Code(s): I95.1 - Orthostatic hypotension Meds Home Medications and Allergies Home Medications ?Medication ?Instructions ?Recorded ?Confirmed ?Type blood sugar diagnostic (Accu-Chek 01/17/24 10/30/24 History Guide test strips) lancets (Accu-Chek Softclix 01/17/24 10/30/24 History Lancets) duloxetine 30 mg capsule,delayed 30 mg PO DAILY 05/17/24 10/30/24 History release nitroglycerin 0.4 mg sublingual 0.4 mg sublingual Q5MINP PRN Chest 05/17/24 10/30/24 History tablet Pain rosuvastatin 40 mg tablet 40 mg PO HS 05/17/24 10/30/24 History blood-glucose sensor (Dexcom G7 #1 ea 08/02/24 10/30/24 History Sensor device) aspirin 81 mg capsule 81 mg PO DAILY 30 days #30 caps 08/28/24 10/30/24 Rx prasugrel HCl 10 mg tablet 10 mg PO DAILY 30 days #30 tabs 08/28/24 10/30/24 Rx (Effient) omeprazole 40 mg capsule,delayed 40 mg PO DAILY #90 caps 09/07/24 10/30/24 Rx release ranolazine 1,000 mg 1,000 mg PO BID 10/18/24 10/30/24 History tablet,extended release,12 hr tamsulosin 0.4 mg capsule 0.4 mg PO HS 10/18/24 10/30/24 History midodrine 5 mg tablet 5 mg PO TID 30 days #90 tabs 10/19/24 10/30/24 Rx sitagliptin phosphate 50 mg tablet 50 mg PO DAILY #30 tabs 10/30/24 Rx (Januvia) New Prescriptions to Start Prescriptions: Naveen Calabrese Allergies Allergy/AdvReac Type Severity Reaction Status Date / Time bee venom protein (honey bee) Allergy Anaphylaxis Verified 10/18/24 13:27 gabapentin Allergy Anaphylaxis Verified 10/18/24 13:27 insect venom Allergy Anaphylaxis Verified 10/18/24 13:27 Discharge Plan Disposition Patient Disposition: Home, Self-Care Condition: Fair Follow up Plan Follow up with: Kelsey Skinner APRN [Nurse Practitioner, Cardiology] - 10/29/24 8:30 am Efrem Lauren DO [Primary Care Provider, Family Practice] - 10/25/24 10:00 am Prescriptions/Medication Reconciliation: Continued omeprazole 40 mg capsule,delayed release(DR/EC) 40 mg PO DAILY Qty: 90 3RF Rx Instructions: Take on empty stomach daily. ranolazine 1,000 mg tablet extended release 12 hr 1,000 mg PO BID Patient Comments: TAKE ONE TABLET BY MOUTH TWICE DAILY (DME) [employer] G7 Sensor Device See Rx Instructions .ROUTE .MEDSUPPLY Qty: 1 Rx Instructions: As directed (DME) Accu-Chek Guide test strips Strip MISCELLANEOUS (DME) lancets [Accu-Chek Softclix Lancets] Misc MISCELLANEOUS nitroglycerin 0.4 mg tablet, sublingual 0.4 mg sublingual Q5MINP PRN (Reason: Chest Pain) rosuvastatin 40 mg tablet 40 mg PO HS duloxetine 30 mg capsule,delayed release(DR/EC) 30 mg PO DAILY tamsulosin 0.4 mg capsule 0.4 mg PO HS Patient Comments: TAKE ONE CAPSULE BY MOUTH EVERY DAY AT BEDTIME prasugrel HCl [Effient] 10 mg Tablet 10 mg PO DAILY 30 Days Qty: 30 6RF aspirin 81 mg Capsule 81 mg PO DAILY 30 Days Qty: 30 6RF Changed midodrine 5 mg tablet 5 mg PO TID 30 Days Qty: 90 0RF Discontinued metoprolol succinate 50 mg tablet extended release 24 hr 50 mg PO DAILY Patient Comments: TAKE ONE TABLET BY MOUTH EVERY DAY No Action Januvia 50 mg tablet 50 mg PO DAILY Qty: 30 0RF Problem Reconciliation Problems Reviewed?: Yes Patient Discharge Instructions Patient Instructions: DI for Hyperglycemia -- Adult, DI for Chest Pain Print Language: Turkish Providers Primary Care Provider: Efrem Lauren Admit Provider: Naveen Cantu Attending Provider: Naveen Cantu
--- NOTE | 2024-10-22 10:43 | SW/DCPLANNER ---
Spoke with patient on the phone. Patient stated that he is doing good. Patient stated that he is aware of his upcoming appointments. Patient stated that he was able to get his new medicine picked up. Patient stated that he has no concerns or questions at this time. Tianna Jimenez
== END 2024-10-19 11:59 | disposition home or self-care (01) ==
LOC: ER 15:06 → 2ND 21:27
PROVIDERS: Nurse Practitioner; Nurse Practitioner Acute Care; Student in an Organized Health Care Education/Training Program; Admitting Provider Student in an Organized Health Care Education/Training Program; Emergency Provider Student in an Organized Health Care Education/Training Program; PCP Internal Medicine; Visit Provider Student in an Organized Health Care Education/Training Program
DX: I25.118 Atherosclerotic heart disease of native coronary artery with other forms of angina pectoris (principal); I95.1 Orthostatic hypotension; E78.2 Mixed hyperlipidemia; K21.9 Gastro-esophageal reflux disease without esophagitis; E11.65 Type 2 diabetes mellitus with hyperglycemia; I45.10 Unspecified right bundle-branch block; R00.1 Bradycardia, unspecified; F32.A Depression, unspecified; M43.26 Fusion of spine, lumbar region; F41.9 Anxiety disorder, unspecified; R91.8 Other nonspecific abnormal finding of lung field; N40.0 Benign prostatic hyperplasia without lower urinary tract symptoms; I25.2 Old myocardial infarction; Z95.5 Presence of coronary angioplasty implant and graft; Z82.49 Family history of ischemic heart disease and other diseases of the circulatory system; Z87.891 Personal history of nicotine dependence; Z91.030 Bee allergy status; Z91.038 Other insect allergy status; Z88.8 Allergy status to other drugs, medicaments and biological substances; Z79.82 Long term (current) use of aspirin; Z79.899 Other long term (current) drug therapy
CPT/HCPCS: 36415; 71045; 71275; 80053; 80307; 81001; 82009; 82803; 82962; 83036; 83690; 83735; 83880; 83930; 84439; 84443; 84484; 85025; 85378; 87631; 87636; 93005; 93306; 96361; 96365; 96375; 96376; 99285; G0378; J0131; J1885; J2270; J2405; J2470; J7030; Q9967

== ENCOUNTER 2024-10-30 04:06 | Observation (INO) | payer MEDICARE, SELFPAY ==
[2024-10-30] VITALS (13 sets, daily range): BP systolic 89–148; BP diastolic 53–82; PULSE 71–85; RESP 14–25; TEMP 36.5–37.5; O2SAT 93–96; BMI 27.8; BMI 28.2
--- NOTE | 2024-10-30 04:09 | CT_ITS ---
PROCEDURE INFORMATION: Exam: CTA Abdomen and Pelvis With Contrast Exam date and time: 10/30/2024 5:25 AM Age: 64 years old Clinical indication: Other: N/v/d, hypotension; Additional info: N/v/d, transient hypotension TECHNIQUE: Imaging protocol: Computed tomographic angiography of the abdomen and pelvis with contrast. Exam focused on the arteries. 3D rendering (Not supervised by radiologist): MIP and/or 3D reconstructed images were created by the technologist. Radiation optimization: All CT scans at this facility use at least one of these dose optimization techniques: automated exposure control; mA and/or kV adjustment per patient size (includes targeted exams where dose is matched to clinical indication); or iterative reconstruction. Contrast material: ISOVUE; Contrast volume: 80 ml; Contrast route: INTRAVENOUS (IV); COMPARISON: CT ABDOMEN PELVIS W CON 05/21/2024 8:29 PM FINDINGS: Tubes, catheters and devices: Thoracic spine stimulator on the left flank. Aorta: No aortic aneurysm. No aortic dissection. Celiac and mesenteric arteries: No occlusion or significant stenosis. Renal arteries: No occlusion or significant stenosis. Right iliac arteries: No occlusion or significant stenosis. Left iliac arteries: No occlusion or significant stenosis. Liver: No mass. Gallbladder and biliary ducts: Cholelithiasis. Pancreas: Unremarkable. No mass. No ductal dilation. Spleen: Unremarkable. No splenomegaly. Adrenal glands: Unremarkable. No mass. Kidneys and ureters: 2 cm left renal cortical cyst. No hydronephrosis or hydroureter. Stomach and bowel: Diverticulosis of the colon. Appendix: No evidence of appendicitis. Intraperitoneal space: Unremarkable. No free air. No significant fluid collection. Lymph nodes: Unremarkable. No enlarged lymph nodes. Urinary bladder: Unremarkable. No mass. Reproductive: Unremarkable as visualized. Bones/joints: No acute fracture. Soft tissues: Bilateral 3 cm fat containing inguinal hernias. IMPRESSION: 1. No acute findings. 2. Normal angiogram. 3. Diverticulosis of the colon.
--- NOTE | 2024-10-30 04:09 | CT_ITS ---
PROCEDURE INFORMATION: Exam: CTA Chest With Contrast Exam date and time: 10/30/2024 5:25 AM Age: 64 years old Clinical indication: Pain; Additional info: Chest pain, hypotensive transiently TECHNIQUE: Imaging protocol: Computed tomographic angiography of the chest with contrast. Exam focused on the arteries. 3D rendering (Not supervised by radiologist): MIP and/or 3D reconstructed images were created by the technologist. Radiation optimization: All CT scans at this facility use at least one of these dose optimization techniques: automated exposure control; mA and/or kV adjustment per patient size (includes targeted exams where dose is matched to clinical indication); or iterative reconstruction. Contrast material: ISOVUE; Contrast volume: 80 ml; Contrast route: INTRAVENOUS (IV); COMPARISON: CT ANGIO CHEST PE PROTOCOL 10/18/2024 4:28 PM FINDINGS: Pulmonary arteries: Normal. No pulmonary emboli. Aorta: Motion limits assessment of the ascending aorta. The aorta is otherwise unremarkable. Lungs: Numerous pneumatoceles. Pleural spaces: Unremarkable. No pneumothorax. No pleural effusion. Heart: Moderate cardiomegaly. Coronary arteries: Moderate calcification of the coronary arteries. Lymph nodes: Unremarkable. No enlarged lymph nodes. Bones/joints: Unremarkable. No acute fracture. Soft tissues: Unremarkable. IMPRESSION: 1. No acute findings. 2. Moderate cardiomegaly.
--- NOTE | 2024-10-30 04:11 | ECG_ITS ---
APPROVED REPORT Exam: Resting ECG HR:75 bpm ECG Measurements Heart Rate 75 AXES FL 179 P 42 QRSd 146 QRS -55 QT 434 T -43 QTc 463 Conclusion SINUS RHYTHM WITH OCCASIONAL SUPRAVENTRICULAR PREMATURE COMPLEXES RIGHT BUNDLE BRANCH BLOCK [120+ ms QRS DURATION, UPRIGHT V1, 40+ ms S IN I/aVL/V4/V5/V6] LEFT ANTERIOR FASCICULAR BLOCK [QRS AXIS <= -45, QR IN I, RS IN II] VOLTAGE CRITERIA FOR LVH [MEETS CRITERIA IN ONE OF: R(aVL), S(V1), R(V5), R(V5/V6)+S(V1)] MODERATE T-WAVE ABNORMALITY, CONSIDER LATERAL ISCHEMIA [-0.1+ mV T-WAVE IN I/aVL/V5/V6] MODERATE T-WAVE ABNORMALITY, CONSIDER INFERIOR ISCHEMIA [-0.1+ mV T-WAVE IN II/aVF] No STEMI, similar to previous Electronically signed by : RENATO HERNANDEZ, 10/31/2024 06:56:48
--- OUTSIDE RECORDS SUMMARY | 2024-10-30 04:13 | XMS_ITS | Clinical Summary ---
Author Organization [facility] Address [address] [place] [address] Phone Care Team Providers Care Er Tech Name Role Phone Cornelia De Leon MD Conditions or Problems Problem Name Problem Code Onset Date Status Entry Date Provider Comment Standard Description Annotate *AFTERCARE FOLLOW SURGERY, NERVOUS SYSTEM NEC Z48.811 (ICD-10-CM) Active Cornelia De Leon MD Encounter for surgical aftercare following surgery on the nervous system RADICULOPATHY , LUMBAR REGION M54.16 (ICD-10-CM) Active Aakash Morfin Radiculopathy , lumbar region UNSPECIFIED PRE-OPERATIVE EXAMINATION 581770458 (SNOMED CT) Active Ritika Gonzalez History and physical examination for surgical clearance LUMBOSACRAL RADICULITIS 43917562 (SNOMED CT) Active Cornelia De Leon MD Lumbosacral radiculitis OVERWEIGHT 095309333 (SNOMED CT) Active Cornelia De Leon MD Overweight Medications Medication Instructions Start Date Stop Date Generic Name [facility] Provider HIBICLENS 4 % EXTERNAL LIQUID Wash the entire back and hip/buttock areas the night prior to the surgey CHLORHEXIDINE GLUCONATE [id number] Cornelia De Leon MD HIBICLEJUANITA 4 % EXTERNAL LIQUID Wash the entire back and hip/buttock areas the night prior to the surgey CHLORHEXIDINE GLUCONATE [id number] Cornelia De Leon MD ACCU-CHEK FASTCLIX LANCETS Non-[place] LANCETS [id number] Cornelia De Leon MD LISINOPRIL 20 MG TABS 1 daily Non- LISINOPRIL [id number] Cornelia De Leon MD SILDENAFIL CITRATE 20 MG TABS 1 tid Non- SILDENAFIL CITRATE [id number] Cornelia De Leon MD TAMSULOSIN HCL 0.4 MG CAPS 1 qhs Non- TAMSULOSIN HCL 91562348003 Cornelia De Leon MD BREO ELLIPTA 100-25 MCG/ACT AEPB 1 daily Non- FLUTICASONE FUROATE-VILANTER OL [id number] Cornelia De Leon MD DILTIAZEM HCL ER COATED BEADS 120 MG [id number] 1 daily Non- DILTIAZEM HCL COATED BEADS [id number] Cornelia De Leon MD METOPROLOL SUCCINATE ER 100 MG [id number] 1 daily Non- METOPROLOL SUCCINATE 97636809090 Cornelia De Leon MD ATORVASTATIN CALCIUM 40 MG TABS 1 qhs Non- ATORVASTATIN CALCIUM 59967560644 Cornelia De Leon MD STRESS PLUS ZINC TABS 1 daily Non- B [id number] 70842447907 Cornelia De Leon MD FENOFIBRATE MICRONIZED 134 MG CAPS 1 daily Non- FENOFIBRATE MICRONIZED 88590436726 Cornelia De Leon MD TIZANIDINE HCL 4 MG TABS 1 qhs - TIZANIDINE HCL 90735631246 Cornelia De Leon MD NORTRIPTYLINE HCL 25 MG CAPS 1 qhs Non- NORTRIPTYLINE HCL 27473516804 Cornelia De Leon MD CO Q 10 CAPS 1 daily Non- COENZYME Q10 CAPS 47640715301 Cornelia De Leon MD OXYCODONE-ACETAM INOPHEN 5-325 MG TABS 1 po q 6 hours Non- OXYCODONE-ACETAM INOPHEN [id number] Cornelia De Leon MD OMEPRAZOLE 40 MG CPDR 1 daily Non- OMEPRAZOLE 20287443940 Cornelia De Leon MD METFORMIN HCL ER 500 MG [id number] 1 daily Non- METFORMIN HCL 57916551071 Cornelia De Leon MD ASPIRIN ADULT LOW DOSE 81 MG TBEC 1 daily Non-Tellez ASPIRIN 43543511148 Cornelia De Leon MD FUROSEMIDE 40 MG TABS 1 daily Non-Tellez FUROSEMIDE 68827997237 Cornelia De Leon MD POTASSIUM CHLORIDE ZULEMA ER 20 MEQ CR-TABS 1 daily Non-Tellez POTASSIUM CHLORIDE ZULEMA CR 46078643215 Cornelia De Leon MD BACLOFEN TABS 1 tid Non-Tellez BACLOFEN TABS 16575455618 Cornelia De Leon MD Medications Administered No [...] Procedures Code Procedure Name Date Entry Date 42777 MRI Thoracic Spine 1 Vital Signs Date [...]
[2024-10-30] MEDS: ASPIRIN 81MG CHEWABLE TABLET 324 MG PO (04:15)
[2024-10-30] MEDS: LACTATED RINGERS 1000ML 1,000 ML 999 ML IV (04:15)
[2024-10-30 04:18] LABS: Hematocrit 40.3 % (42.0-52.0); Hemoglobin 14.0 g/dL (14.1-18.0); Immature Granulocytes % 0.3 %; Mean Corpuscular HGB Conc 34.7 g/dL (31.8-35.4); Mean Corpuscular Hemoglobin 31.3 pg (27.0-31.2); Mean Corpuscular Volume 90.0 fl (80-94); Nucleated Red Blood Cells % 0 %; Platelet Count 177 K/mm3 (142-424); Red Blood Count 4.48 M/mm3 (4.60-6.20); Red Cell Distribution Width-SD 41.5 fL; White Blood Count 12.7 K/mm3 (4.8-10.8)
[2024-10-30 04:22] LABS: VBG HCO3 19.3 mmol/L (23-30); VBG PCO2 38.9 mmol/L (35-51); VBG PH 7.31 mmol/L (7.31-7.41); VBG PO2 63.8 mmol/L (28-40)
[2024-10-30 04:23] LABS: Lactate Venous 2.1 mmol/L (0.4-2.0)
[2024-10-30 04:25] LABS: Albumin Level 4.0 g/dl (3.5-5.0); Chloride 103 mmol/L (98-107); Sodium 135 mmol/L (136-145)
[2024-10-30 04:26] LABS: Potassium 4.4 mmoL/L (3.5-5.1)
[2024-10-30 04:28] LABS: Alanine Aminotransferase 34 U/L (12-78); Anion Gap 14.4 mEq/L (5-15); Aspartate Amino Transferase 37 U/L (17-59); Blood Urea Nitrogen 19 mg/dl (9-20); Carbon Dioxide 22 mmol/L (22.0-30.0); Creatinine Clearance Estimated 96 mL/min (50-200); Creatinine,Serum 0.80 mg/dl (0.66-1.25); Estimated Glomerular Filt Rate 97 ml/min (>60); GFR (African American) 117 ML/MIN (>60)
[2024-10-30 04:29] LABS: Albumin/Globulin Ratio 1.7 (1.1-1.8); Alkaline Phosphatase 83 U/L (38-126); Bilirubin,Total 0.6 mg/dl (0.2-1.3); Calcium 9.3 mg/dl (8.4-10.2); Globulin 2.3 g/dL (1.3-3.2); Glucose 332 mg/dl (74-100); Total Protein,Serum 6.3 g/dl (6.3-8.2)
[2024-10-30 04:30] LABS: INR 1.05 (0.9-1.1); Prothrombin Time 11.6 seconds (10.1-12.5)
[2024-10-30 04:32] LABS: Acetone, Serum (Rapid) None Detected (None Detect)
--- NOTE | 2024-10-30 04:33 | HMH.EDCP ---
Discharge Plan Disposition Chief Complaint: Chest Pain Prescriptions Prescriptions: No Action Jardiance 25 mg tablet 25 mg PO DAILY Qty: 30 2RF omeprazole 40 mg capsule,delayed release(DR/EC) 40 mg PO DAILY Qty: 90 3RF Rx Instructions: Take on empty stomach daily. ranolazine 1,000 mg tablet extended release 12 hr 1,000 mg PO BID Patient Comments: TAKE ONE TABLET BY MOUTH TWICE DAILY (DME) Dexcom G7 Sensor Device See Rx Instructions .ROUTE .MEDSUPPLY Qty: 1 Rx Instructions: As directed (DME) Accu-Chek Guide test strips Strip MISCELLANEOUS (DME) lancets [Accu-Chek Softclix Lancets] Misc MISCELLANEOUS nitroglycerin 0.4 mg tablet, sublingual 0.4 mg sublingual Q5MINP PRN (Reason: Chest Pain) rosuvastatin 40 mg tablet 40 mg PO HS duloxetine 30 mg capsule,delayed release(DR/EC) 30 mg PO DAILY tamsulosin 0.4 mg capsule 0.4 mg PO HS Patient Comments: TAKE ONE CAPSULE BY MOUTH EVERY DAY AT BEDTIME midodrine 5 mg tablet 5 mg PO TID 30 Days Qty: 90 0RF prasugrel HCl [Effient] 10 mg Tablet 10 mg PO DAILY 30 Days Qty: 30 6RF aspirin 81 mg Capsule 81 mg PO DAILY 30 Days Qty: 30 6RF Referrals Follow up/Referrals: Mila Lange [Primary Care Provider, Medical] - See instructions Clinical Impressions Clinical Impression: Chest pain, Hypotension, Renal cyst, Inguinal hernia Print Language Print Language: Beninese Discharge ED Provider: Alesha Jack General Chief Complaint: Chest Pain Stated Complaint: fall Time Seen by Provider: 10/30/24 04:09 Mode of Arrival: EMS Source of Information: EMS Description of Symptoms (Recalled from ER Triage Doc. by RN): EMS in with pt for c/o hypotension, dizziness and episode of vomiting while on commode. Pt also reports 8/10 sharp chest pain that he states comes and goes. History of Present Illness HPI narrative: 64-year-old male with history of of hyperglycemia, unstable angina, CAD, right bundle branch block, GERD, hypertension, hypotension, hyperlipidemia presents to the ER with complaints of low blood pressure, lightheadedness, and emesis. Patient reports he was sitting on the commode and started feeling very lightheaded. He also started having 8 out of 10 sharp chest pain that comes and goes. EMS reports when they got to the patient his blood pressure was only in the 70s. They administered 400 mL of IV fluids during transportation and his blood pressure had improved but he was only 97/65 upon presentation to the ER. Patient has had a few episodes of nonbloody, nonbilious emesis and states he has also been having diarrhea for the last 24 hours. He denies any abdominal pain. He denies any difficulty breathing. Review of records demonstrates he was admitted to the hospital with similar symptoms about 10 days ago but he states his symptoms are different at this time and he felt generally weak, had difficulty ambulating from the bathroom to the living room. He also states he was seeing waves on the floor that he knew were not real. No fevers or chills, no headache, no vision changes, no numbness, tingling, or weakness, no hematuria or dysuria, no bloody or melanotic stool reported. No other complaints or concerns Related Data Home Medications ?Medication ?Instructions ?Recorded ?Confirmed blood sugar diagnostic (Accu-Chek 01/17/24 10/18/24 Guide test strips) lancets (Accu-Chek Softclix 01/17/24 10/18/24 Lancets) duloxetine 30 mg capsule,delayed 30 mg PO DAILY 05/17/24 10/18/24 release nitroglycerin 0.4 mg sublingual 0.4 mg sublingual Q5MINP PRN Chest 05/17/24 10/18/24 tablet Pain rosuvastatin 40 mg tablet 40 mg PO HS 05/17/24 10/18/24 blood-glucose sensor (Dexcom G7 #1 ea 08/02/24 10/18/24 Sensor device) ranolazine 1,000 mg 1,000 mg PO BID 10/18/24 10/19/24 tablet,extended release,12 hr tamsulosin 0.4 mg capsule 0.4 mg PO HS 10/18/24 10/19/24 Previous Rx's ?Medication ?Instructions ?Recorded aspirin 81 mg capsule 81 mg PO DAILY 30 days #30 caps 08/28/24 prasugrel HCl 10 mg tablet 10 mg PO DAILY 30 days #30 tabs 08/28/24 (Effient) empagliflozin 25 mg tablet 25 mg PO DAILY #30 tabs 09/07/24 (Jardiance) omeprazole 40 mg capsule,delayed 40 mg PO DAILY #90 caps 09/07/24 release midodrine 5 mg tablet 5 mg PO TID 30 days #90 tabs 10/19/24 Allergies Allergy/AdvReac Type Severity Reaction Status Date / Time bee venom protein (honey bee) Allergy Anaphylaxis Verified 10/18/24 13:27 gabapentin Allergy Anaphylaxis Verified 10/18/24 13:27 insect venom Allergy Anaphylaxis Verified 10/18/24 13:27 [facility] Disclaimer: The information contained in this section may have been updated after the patient was seen, as this information can be updated by other users. Medical History Angina pectoris Coronary arteritis Leukocytosis Cystic-bullous disease of lung Abnormal electrocardiogram [ECG] [EKG] Coronary artery disease Enlarged prostate Dizziness Syncope Cystic lung, congenital History of pneumothorax Atrial fibrillation and flutter Presence of stent in LAD coronary artery Pericardial effusion without cardiac tamponade PNA (pneumonia) Diabetes GERD (gastroesophageal reflux disease) Pericarditis Angina at rest History of heart attack Hyperlipidemia Palpitations Hypertension Heart murmur Arrhythmia History of left heart catheterization (LHC) RBBB (right bundle branch block with left anterior fascicular block) Surgical History History of cardiac cath Hx of heart artery stent Previous back surgery Family History Other Family history of COPD (chronic obstructive pulmonary disease) Family history of hyperlipidemia Family history of hypertension Family history of myocardial infarction Family history of stroke Lung cancer Social History (Updated 10/18/24 @ 22:03 by Rowena Neumann RN) Smoking Status: Smoker, status unknown tobacco type: cigarettes packs per day: 1 pack-years: 52 alcohol intake: former current occupational status: previously employed and disabled Travel in the last 8 weeks?: None Have you lived/traveled outside US in past 30 days?: No Contact w/someone who lives/traveled outside US past 30 days?: No Exposure to someone with infectious disease in past 14 days?: No Do you have a fever (greater than 100.4 F or 38 C)?: No Have you tested positive for COVID-19?: No Exposed to someone with COVID-19 in past 14 days?: No Do you have a sore throat?: No Do you have a cough?: No Do you have any weakness?: No Do you have any diarrhea?: No Are you experiencing any unusual bleeding?: No Do you have any muscle aches/pain?: No Do you have any abdominal pain?: No Are you experiencing loss of taste or smell?: No Other Medical History Have you received the Flu Vaccine for this season: No Have you received the Pneumonia Vaccine: No ROS Obtained: Yes Systems reviewed as appropriate & no additional complaints except as documented per HPI Physical Exam General General appearance: alert Comment: Ill-appearing, pale and mildly diaphoretic Head Head exam: atraumatic and normocephalic Eye Eye exam: Present PERRL and EOMI ENT ENT exam: Present mucous membranes moist Neck Neck exam: Present normal inspection and full ROM Chest Chest inspection: Present symmetric chest wall rise; Absent tenderness Respiratory Respiratory exam: Present normal lung sounds bilaterally; Absent respiratory distress, wheezes or stridor Cardiovascular Cardiovascular exam: Present regular rate and normal rhythm Abdominal Exam Abdominal exam: Present soft; Absent distention, tenderness, guarding or rebound Extremities Exam Extremities exam: Present full ROM and normal capillary refill; Absent edema Neurological Exam Neurological exam: Present alert, oriented X3, CN II-XII intact and other (GCS 15, NIH 0); Absent motor sensory deficit Psychiatric Psychiatric exam: Present normal affect and normal mood Skin Skin exam: Present diaphoresis; Absent warm (Cool) HEART Score HEART Score HEART Score assessment performed?: Yes History (anamnesis): Moderately suspicious ECG: Non-specific disturbance Age: >65 years Risk factors: Atherosclerosis history Troponin: </= normal limit HEART Score: 6 Critical Care Critical Care Time Critical Care Time: No Medical Decision Making Medical Records Medical records reviewed: Yes I reviewed the patient's medical records. MR Comment: Workup from previous admission only identified esophagitis, no other acute abnormality. Cardiology note from 10/19/2024 demonstrates MS was ruled out, cardiac cath was not performed, Ranexa was continued, DAPT continued, increased midodrine to 5 mg 3 times a day for hypotension, stopped his metoprolol, recommended outpatient follow-up 1 week from the 12th which does not appear patient went to. Moshe Inquiry Pt receiving controlled substance: No Vital Signs Vital Signs: 10/30/24 04:10 10/30/24 04:40 10/30/24 04:43 Temperature 98 F Temperature Source Oral Pulse Rate 80 71 Pulse Rate [Left] 74 Pulse Rate [Orthostatic Lying] Pulse Rate [Orthostatic Sitting] Pulse Rate [Orthostatic Standing] Respiratory Rate 16 25 H 23 Blood Pressure 98/58 L 89/53 L Blood Pressure [Orthostatic Lying] Blood Pressure [Orthostatic Sitting] Blood Pressure [Orthostatic Standing] Blood Pressure [Right Arm] 97/65 L Blood Pressure Mean [Right Arm] 75 Blood Pressure Source [Right Arm] Automatic Cuff 02 Sat by Pulse Oximetry 93 L 95 95 Oxygen Delivery Method Room Air 10/30/24 04:47 10/30/24 05:54 Temperature Temperature Source Pulse Rate 83 Pulse Rate [Left] Pulse Rate [Orthostatic Lying] 80 Pulse Rate [Orthostatic Sitting] 81 Pulse Rate [Orthostatic Standing] 84 Respiratory Rate 21 Blood Pressure 107/73 L Blood Pressure [Orthostatic Lying] 98/58 L Blood Pressure [Orthostatic Sitting] 95/57 L Blood Pressure [Orthostatic Standing] 89/53 L Blood Pressure [Right Arm] Blood Pressure Mean [Right Arm] Blood Pressure Source [Right Arm] 02 Sat by Pulse Oximetry 96 Oxygen Delivery Method Lab Data Labs: Lab Results 10/30/24 04:10: WBC 12.7 H, RBC 4.48 L, Hgb 14.0 L, Hct 40.3 L, MCV 90.0, MCH 31.3 H, MCHC 34.7, RDW 12.6, Plt Count 177, MPV 10.6 H, Neut % (Auto) 65.2, Lymph % (Auto) 25.9, [place] % (Auto) 6.8, Eos % (Auto) 1.3, Baso % (Auto) 0.5, Neut # (Auto) 8.3 H, Lymph # (Auto) 3.3, [place] # (Auto) 0.9, Eos # (Auto) 0.2, Baso # (Auto) 0.1, PT 11.6, INR 1.05, VBG pH 7.31, VBG pCO2 38.9, VBG pO2 63.8 H, VBG HCO3 19.3 L, VBG Total CO2 20.5 L, VBG O2 Saturation 91.2 H, VBG Base Excess -6.9 L, VBG Lactic Acid 2.1 H, Sodium 135 L, Potassium 4.4, Chloride 103, Carbon Dioxide 22, Anion Gap 14.4, BUN 19, Creatinine 0.80, Estimated Creat Clear 96, Estimated GFR 97, Est GFR ( Amer) 117, Glucose 332 H, Calcium 9.3, Total Bilirubin 0.6, AST 37, ALT 34, Alkaline Phosphatase 83, Troponin I < 0.01, NT-Pro-B Natriuret Pep 291 H, Total Protein 6.3, Albumin 4.0, Globulin 2.3, Albumin/Globulin Ratio 1.7, Plasma/Serum Alcohol < 10, Acetone Level None detected 10/30/24 05:45: Urine Color Yellow, Urine Appearance Clear, Urine pH 6.0, Ur Specific [place] <= 1.005, Urine Protein Negative, Urine Glucose (UA) 3+, Urine Ketones Negative, Urine Blood Negative, Urine Nitrate Negative, Urine Bilirubin Negative, Urine Urobilinogen 0.2, Ur Leukocyte Esterase Negative, Urine WBC Occasional, Ur Squamous Epith Cells 3-5, Urine Bacteria Trace, Urine Opiates Screen Negative, Urine Methadone Screen Negative, Ur Barbituates Screen Negative, Ur Phencyclidine Scrn Negative, Ur Amphetamines Screen Negative, U Benzodiazepines Scrn Negative, Urine Cocaine Screen Negative, U Marijuana (THC) Screen Negative 10/30/24 04:10 10/30/24 04:10 Response Orders (Tests/Meds): ED MEDICATIONS Discontinued Medications Generic Name Dose Route Start Last Admin Trade Name Freq PRN Reason Stop Dose Admin Aspirin 324 mg 10/30/24 04:09 10/30/24 04:15 Aspirin 81mg Chewable Tablet PO 10/30/24 04:10 324 mg ONCE ONE Administration Lactated Ringer's 1,000 mls @ 999 mls/hr 10/30/24 04:09 10/30/24 04:15 Lactated Ringer's 1000 Ml Bag IV 10/30/24 05:09 999 mls/hr .Q1H1M ONE Administration Iopamidol 80 ml 10/30/24 05:23 10/30/24 05:26 Iopamidol-370 (76%);100ml Bottle IV 10/30/24 05:24 80 ml ONCE ONE Administration Midodrine 5 mg 10/30/24 04:40 10/30/24 04:52 Midodrine Hcl 5 Mg Tablet PO 10/30/24 04:41 5 mg ONCE ONE Administration Sodium Chloride 10 ml 10/30/24 05:23 10/30/24 05:26 Sodium Chloride 0.9% 10ml Syr (Rad Only) IV 10/30/24 05:24 10 ml ONCE ONE Administration Sodium Chloride 50 ml 10/30/24 05:23 10/30/24 05:26 0.9 % Sodium Chloride 50 Ml Vial IV 10/30/24 05:24 50 ml ONCE ONE Administration ORDERS Category Date Time Status CT angio abdomen pelvis Stat Cat Scan 10/30/24 04:[address] angio chest PE protocol Stat Cat Scan 10/30/24 04:09 Completed Acetone, Serum (Rapid) Stat Lab 10/30/24 04:10 Completed Complete Blood Count Auto Diff Stat Lab 10/30/24 04:10 Completed Comprehensive Metabolic Panel Stat Lab 10/30/24 04:10 Completed Ethanol [Ethyl Alcohol] Stat Lab 10/30/24 04:10 Completed NT Pro Brain Natriuretic Pep. Stat Lab 10/30/24 04:10 Completed Prothrombin Time INR Stat Lab 10/30/24 04:10 Completed Troponin I Q3H Lab 10/30/24 07:15 Ordered Troponin I Q3H Lab 10/30/24 10:15 Ordered Troponin I Stat Lab 10/30/24 04:10 Completed UDS [Drug Screen,Urine] Stat Lab 10/30/24 05:45 Completed Urinalysis and Microscopic Stat Lab 10/30/24 05:45 Completed VBG [Venous Blood Gas] Stat RT 10/30/24 04:10 Completed MDM Narrative Medical Decision Narrative: In summary, this 64-year-old male with comorbidities described in the HPI presents to the emergency department today with chest pain, hypotension, lightheadedness, nausea, vomiting. On initial evaluation patient is mildly hypotensive blood pressure 97/65, pale and slightly diaphoretic but states he is starting to feel better than when he called EMS, no tachycardia, no tenderness to palpation of the chest wall, benign abdominal exam, no peripheral edema, GCS 15, no neurologic deficits, NIH 0. Differential diagnosis includes but is not limited to orthostatic hypotension, ACS, PE, viral syndrome, electrolyte abnormality, dehydration, esophagitis, esophageal spasm, pneumothorax, pneumonia, UTI, intoxication, among others. Based on these concerns, I ordered hematologic and serum labs, cardiac workup, cardiac enzymes, CTA PE, CT abdomen pelvis, urinalysis. ECG personally interpreted demonstrates sinus rhythm, occasional PACs, rate 75, QTc 463, FL normal, patient has ST abnormalities in the inferior leads which have been present previously, they are slightly more pronounced tonight than they have been in the past but his EKG overall shows similar morphology to prior, no STEMI. Patient received aspirin, IV fluid bolus, home dose midodrine for treatment. He reported he had not taken his midodrine since last night around 9 PM so with his hypotension I thought it was appropriate for him to receive his midodrine. Labs personally reviewed demonstrate leukocytosis WBC 12.7, slight anemia which is nonactionable at this time, normal platelets, PT/INR normal, VBG with normal pH, VBG lactic slightly elevated at 2.1, patient is already receiving IV fluids. CMP notable for hyperglycemia but acetone negative and no acidosis, no evidence of DKA or HHS, normal anion gap, good kidney function, troponin undetectably low less than 0.01 reassuring in the setting of nonischemic ECG at this time. BNP 291 which is increased from prior. CTA PE personally interpreted does not demonstrate any evidence of large PE or dissection, see radiology read for final interpretation. CT abdomen pelvis personally interpreted demonstrates no acute surgical intra-abdominal pathology. See radiology read for final interpretation. Incidental findings were discussed with the patient. On reassessment patient reports his symptoms are improving but he is still reporting slight chest pain. I believe patient requires admission to the hospital at this time since he remains mildly hypotensive with blood pressure in the low 100s to upper 90s systolics and because his most recent cardiology note indicated that if he had persistent hypotension issues they would pursue further ischemic workup. I discussed this with the patient and he is agreeable to admission. I discussed this case with the hospitalist who graciously accepted the patient for admission for continued workup.
[2024-10-30 04:38] LABS: NT Pro Brain Natriuretic Pep. 291 pg/mL (0-125)
[2024-10-30 04:44] LABS: Troponin I < 0.01 ng/ml (0.00-0.034)
[2024-10-30] MEDS: MIDODRINE HCL 5 MG TABLET PO ×3 (04:52→12:59)
--- OUTSIDE RECORDS SUMMARY | 2024-10-30 05:15 | XMS_ITS | CCD ---
Author Organization Unknown Care Team Providers Care Vice President Of Customer Service Name Role Phone Unavailable Primary Care Provider Unavailabl e Unavailable Chronic Care Management Unavaila ble Summary Purpose DataExchange Insurance Providers Payer name Policy type / Coverage type Covered constitution party ID Effective Begin Date Effective End Date [facility] [id number] Unknown Unknown Family History Family History data not found Medication Administered No Medication Administered data Reason For Visit No Reason For Visit data Medical Equipment No Medical Equipment data Advance Directives No Advance Directive data
[2024-10-30] MEDS: IOPAMIDOL-370 (76%);100ML BOTTLE 80 ML IV (05:26)
[2024-10-30] MEDS: 0.9 % SODIUM CHLORIDE 50 ML VIAL IV (05:26)
[2024-10-30] MEDS: SODIUM CHLORIDE 0.9% 10ML SYR (RAD ONLY) 10 ML IV (05:26)
[2024-10-30 05:48] LABS: Microscopic, Urine URINE MICROSCOPIC (MICROSCOPIC)
[2024-10-30 05:50] LABS: Bilirubin,Urine Negative (Negative); Color,Urine YELLOW (Yellow); Glucose,Urine (UA) 3+ (Negative); Ketones,Urine Negative (Negative); Leukocyte Esterase,Urine Negative (Negative); PH,Urine 6.0 (5.0-8.5); Protein,Urine Negative (Negative); Specific Gravity, Urine <= 1.005 (1.005-1.030); Urobilinogen,Urine 0.2 EU/dl (0.2)
[2024-10-30 06:02] LABS: Amphetamine/Metha Screen,Urine Negative ng/ml (<1000); Barbiturates Screen,Urine Negative ng/ml (<200)
[2024-10-30 06:03] LABS: Benzodiazepines Screen,Urine Negative ng/ml (<200)
[2024-10-30 06:05] LABS: Methadone Screen,Urine Negative ng/ml (<300)
[2024-10-30 06:06] LABS: Bacteria,Urine Trace /lpf; Opiate Screen,Urine Negative ng/ml (<300); Phencyclidine Screen,Urine Negative ng/ml (<25); WBC,Urine Occasional #/hpf (0-3)
--- NOTE | 2024-10-30 07:32 | PC.NURSE ---
called and spoke with executive steward celsa, states that night time nanny did call report, but it will be just a little before they are able to come and get pt.
--- NOTE | 2024-10-30 07:34 | PC.NURSE ---
chris ortega sent 2nd troponin to lab
--- NOTE | 2024-10-30 07:41 | PC.NURSE ---
issues with the room on second floor, staff attempting to fix situation, then pt will be transferred to the floor.
--- NOTE | 2024-10-30 07:54 | PC.NURSE ---
arrived by w/c from ED
[2024-10-30 08:01] LABS: Troponin I < 0.01 ng/ml (0.00-0.034)
--- NOTE | 2024-10-30 08:17 | P.HPDS_ITS ---
General Admission date:: 10/30/24 *History of present illness: Will recommend discontinuing home Jardiance, likely contributing to symptoms of hypotension. Pending cardiology consultation. May need to go up on midodrine dose. [facility] Disclaimer: The information contained in this section may have been updated after the patient was seen, as this information can be updated by other users. Medical History Angina pectoris Coronary arteritis Leukocytosis Cystic-bullous disease of lung Abnormal electrocardiogram [ECG] [EKG] Coronary artery disease Enlarged prostate Dizziness Syncope Cystic lung, congenital History of pneumothorax Atrial fibrillation and flutter Presence of stent in LAD coronary artery Pericardial effusion without cardiac tamponade PNA (pneumonia) Diabetes GERD (gastroesophageal reflux disease) Pericarditis Angina at rest History of heart attack Hyperlipidemia Palpitations Hypertension Heart murmur Arrhythmia History of left heart catheterization (LHC) RBBB (right bundle branch block with left anterior fascicular block) Surgical History History of cardiac cath Hx of heart artery stent Previous back surgery Family History Other Family history of COPD (chronic obstructive pulmonary disease) Family history of hyperlipidemia Family history of hypertension Family history of myocardial infarction Family history of stroke Lung cancer Social History (Updated 10/18/24 @ 22:03 by Rowena Neumann RN) Smoking Status: Smoker, status unknown tobacco type: cigarettes packs per day: 1 pack-years: 52 alcohol intake: former current occupational status: previously employed and disabled Travel in the last 8 weeks?: None Other Medical History Have you received the Flu Vaccine for this season: No Have you received the Pneumonia Vaccine: No Exam Data for Last 24 hours Vital signs and Labs for Last 24 Hours: Temp Pulse Resp BP Pulse Ox O2 Del Method 99.5 F 82 23 117/82 95 Room Air 10/30/24 06:50 10/30/24 07:00 10/30/24 07:30 10/30/24 07:30 10/30/24 07:30 10/30/24 06:50 Laboratory Results - last 24 hr 10/30/24 04:10: WBC 12.7 H, RBC 4.48 L, Hgb 14.0 L, Hct 40.3 L, MCV 90.0, MCH 31.3 H, MCHC 34.7, RDW 12.6, Plt Count 177, MPV 10.6 H, Neut % (Auto) 65.2, Lymph % (Auto) 25.9, [place] % (Auto) 6.8, Eos % (Auto) 1.3, Baso % (Auto) 0.5, Neut # (Auto) 8.3 H, Lymph # (Auto) 3.3, [place] # (Auto) 0.9, Eos # (Auto) 0.2, Baso # (Auto) 0.1, PT 11.6, INR 1.05, VBG pH 7.31, VBG pCO2 38.9, VBG pO2 63.8 H , VBG HCO3 19.3 L, VBG Total CO2 20.5 L, VBG O2 Saturation 91.2 H, VBG Base Excess -6.9 L, VBG Lactic Acid 2.1 H, Sodium 135 L, Potassium 4.4, Chloride 103, Carbon Dioxide 22, Anion Gap 14.4, BUN 19, Creatinine 0.80, Estimated Creat Clear 96, Estimated GFR 97, Est GFR ( Amer) 117, Glucose 332 H, Calcium 9.3, Total Bilirubin 0.6, AST 37, ALT 34, Alkaline Phosphatase 83, Troponin I < 0.01, NT-Pro-B Natriuret Pep 291 H, Total Protein 6.3, Albumin 4.0, Globulin 2.3, Albumin/Globulin Ratio 1.7, Plasma/Serum Alcohol < 10, Acetone Level None detected 10/30/24 05:45: Urine Color Yellow, Urine Appearance Clear, Urine pH 6.0, Ur Specific [place] <= 1.005, Urine Protein Negative, Urine Glucose (UA) 3+, Urine Ketones Negative, Urine Blood Negative, Urine Nitrate Negative, Urine Bilirubin Negative, Urine Urobilinogen 0.2, Ur Leukocyte Esterase Negative, Urine WBC Occasional, Ur Squamous Epith Cells 3-5, Urine Bacteria Trace, Urine Opiates Screen Negative, Urine Methadone Screen Negative, Ur Barbituates Screen Negative, Ur Phencyclidine Scrn Negative, Ur Amphetamines Screen Negative, U Benzodiazepines Scrn Negative, Urine Cocaine Screen Negative, U Marijuana (THC) Screen Negative 10/30/24 07:16: Troponin I < 0.01 I & O for Last 24 hours: Intake & Output 10/27/24 10/28/24 10/29/24 10/30/24 23:59 23:59 23:59 23:59 Intake Total 1000 / 1000 Output Total 400 / 400 Balance 600 / 600 Weight 92.986 kg Constitutional Constitutional: no acute distress *Routine HEENT Exam Head: Present normocephalic Eye: Present EOMI and PERRL ENT: Present mucous membranes moist *Routine Neck Exam Neck: Present supple; Absent lymphadenopathy *Routine Respiratory Exam Respiratory: Present CTA bilaterally *Routine Cardiovascular Exam Cardiovascular: Present RRR *Routine Abdominal Exam Abdominal: Present soft and normoactive bowel sounds; Absent tenderness *Routine Rectal Exam Rectal:: deferred *Routine Genitalia Exam Genitalia:: deferred *Routine Extremities Exam Extremities: Absent cyanosis, clubbing or edema *Routine Skin Exam Skin: Present warm; Absent rash *Routine Neurological Exam Neurological: Present alert and oriented X3 Meds Home Medications and Allergies Home Medications ?Medication ?Instructions ?Recorded ?Confirmed ?Type blood sugar diagnostic (Accu-Chek 01/17/24 10/30/24 H istory Guide test strips) lancets (Accu-Chek Softclix 01/17/24 10/30/24 History Lancets) duloxetine 30 mg capsule,delayed 30 mg PO DAILY 10/30/24 History release nitroglycerin 0.4 mg sublingual 0.4 mg sublingual Q5MI RENEWAL SPECIALIST PRN Chest 05/17/24 10/30/24 History tablet Pain rosuvastatin 40 mg tablet 40 mg PO HS 05/17/24 5 History blood-glucose sensor (Dexcom G7 #1 ea 08/02/24 5 History Sensor device) aspirin 81 mg capsule 81 mg PO DAILY 30 days #30 c aps 08/28/24 10/30/24 Rx prasugrel HCl 10 mg tablet 10 mg PO DAILY 30 days #30 tabs 08/28/24 10/30/24 Rx (Effient) omeprazole 40 mg capsule,delayed 40 mg PO DAILY #90 ca ps 09/07/24 10/30/24 Rx release ranolazine 1,000 mg 1,000 mg PO BID 10/18/24 History tablet,extended release,12 hr tamsulosin 0.4 mg capsule 0.4 mg PO HS 10/18/24 History midodrine 5 mg tablet 5 mg PO TID 30 days #90 tabs 10/19/24 10/30/24 Rx sitagliptin phosphate 50 mg tablet 50 mg PO DAILY #30 tabs 10/30/24 Rx (Januvia) New Prescriptions to Start Prescriptions: sitagliptin phosphate [Januvia] Naveen Cantu Allergies Allergy/AdvReac Type Severity Reaction Status Date / Time bee venom protein (honey bee) Allergy Anaphylaxis Verified 10/18/24 13:27 gabapentin Allergy Anaphylaxis Verified 10/18/24 13:27 insect venom Allergy Anaphylaxis Verified 10/18/24 13:27 Hospital Course Hospital Course Hospital Course: Tashi Martin is a 63-year-old male who unfortunately presents again with chest pain, lightheadedness, diaphoresis, nausea/vomiting and was admitted for same. #Lightheadedness #Orthostatic/iatrogenic hypotension #Chest pain #History of CAD ? Patient has a longstanding history of orthostatic hypotension on midodrine. Blood pressures at home with systolics in the 70s. ? Blood pressures improved with IV fluid resuscitation with EMS and in the ED. ? During recent recent admission, midodrine was increased to 5 mg 3 times daily and metoprolol was stopped. There are conflicting stories as to whether patient has been adherent to this medication. ? Cardiology consulted, agreed to discontinue Jardiance 25 mg and continue midodrine to 5 mg 3 times a day. Patient feeling better, blood pressure improved to 133/72, orthostatic vitals also normal. ? [facility] on 08/28/2024, received 2 stents to LAD but did continue to show severe apical LAD disease not amenable to stenting or bypass surgery per Dr. Ewing. Will continue medical management at this time. ? Continue home aspirin 81 mg, prasugrel 10 mg, rosuvastatin 40 mg, ranolazine 1000 mg twice daily. #Type 2 diabetes ? Hemoglobin A1c 10.3% on 10/18/2024. Above goal for patient. ? Discontinued home Jardiance 25 mg due to hypotension, polyuria. ? Continue Januvia 50 mg daily. Patient intolerant to metformin in the past. Will need to follow-up with PCP very closely for further management. #GERD ? Continue home omeprazole. #Low back pain with lumbar fusion #Anxiety/depression ? Continue home duloxetine. ? Neurostimulator in place. Planning to follow-up with pain management in 1 week. #BPH ? Continue home tamsulosin 0.4 mg nightly. Total time spent on discharge: 32 minutes on chart review, counseling, documentation, and direct care with patient. Results Data Completed and Pending Labs on day of discharge: Labs from last 24 hours 10/30/24 10/30/24 10/30/24 07:16 05:45 04:10 WBC 12.7 H RBC 4.48 L Hgb 14.0 L Hct 40.3 L MCV 90.0 MCH 31.3 H MCHC 34.7 RDW 12.6 Plt Count 177 MPV 10.6 H Neut % (Auto) 65.2 Lymph % (Auto) 25.9 [place] % (Auto) 6.8 Eos % (Auto) 1.3 Baso % (Auto) 0.5 Neut # (Auto) 8.3 H Lymph # (Auto) 3.3 [place] # (Auto) 0.9 Eos # (Auto) 0.2 Baso # (Auto) 0.1 PT 11.6 INR 1.05 VBG pH 7.31 VBG pCO2 38.9 VBG pO2 63.8 H VBG HCO3 19.3 L VBG Total CO2 20.5 L VBG O2 Saturation 91.2 H VBG Base Excess -6.9 L VBG Lactic Acid 2.1 H Sodium 135 L Potassium 4.4 Chloride 103 Carbon Dioxide 22 Anion Gap 14.4 BUN 19 Creatinine 0.80 Estimated Creat Clear 96 Estimated GFR 97 Est GFR ( Amer) 117 Glucose 332 H Calcium 9.3 Total Bilirubin 0.6 AST 37 ALT 34 Alkaline Phosphatase 83 Troponin I < 0.01 < 0.01 NT-Pro-B Natriuret Pep 291 H Total Protein 6.3 Albumin 4.0 Globulin 2.3 Albumin/Globulin Ratio 1.7 Urine Color Yellow Urine Appearance Clear Urine pH 6.0 Ur Specific [place] <= 1.005 Urine Protein Negative Urine Glucose (UA) 3+ Urine Ketones Negative Urine Blood Negative Urine Nitrate Negative Urine Bilirubin Negative Urine Urobilinogen 0.2 Ur Leukocyte Esterase Negative Urine WBC Occasional Ur Squamous Epith Cells 3-5 Urine Bacteria Trace Urine Opiates Screen Negative Urine Methadone Screen Negative Ur Barbituates Screen Negative Ur Phencyclidine Scrn Negative Ur Amphetamines Screen Negative U Benzodiazepines Scrn Negative Urine Cocaine Screen Negative U Marijuana (THC) Screen Negative Plasma/Serum Alcohol < 10 Acetone Level None detected Discharge Plan Disposition Patient Disposition: Home, Self-Care Condition: Fair Follow up Plan Follow up with: Antelmo Collado PA [Physician Board Setter, Cardiology] - 11/15/24 1:45 pm Mila Lange [Primary Care Provider, Medical] - 11/02/24 10:00 am Prescriptions/Medication Reconciliation: New Januvia 50 mg tablet 50 mg PO DAILY Qty: 30 0RF Continued omeprazole 40 mg capsule,delayed release(DR/EC) 40 mg PO DAILY Qty: 90 3RF Rx Instructions: Take on empty stomach daily. ranolazine 1,000 mg tablet extended release 12 hr 1,000 mg PO BID Patient Comments: TAKE ONE TABLET BY MOUTH TWICE DAILY (DME) [employer] - is now [employer] G7 Sensor Device See Rx Instructions .ROUTE .MEDSUPPLY Qty: 1 Rx Instructions: As directed (DME) Accu-Chek Guide test strips Strip MISCELLANEOUS (DME) lancets [Accu-Chek Softclix Lancets] Misc MISCELLANEOUS nitroglycerin 0.4 mg tablet, sublingual 0.4 mg sublingual Q5MINP PRN (Reason: Chest Pain) rosuvastatin 40 mg tablet 40 mg PO HS duloxetine 30 mg capsule,delayed release(DR/EC) 30 mg PO DAILY tamsulosin 0.4 mg capsule 0.4 mg PO HS Patient Comments: TAKE ONE CAPSULE BY MOUTH EVERY DAY AT BEDTIME midodrine 5 mg tablet 5 mg PO TID 30 Days Qty: 90 0RF prasugrel HCl [Effient] 10 mg Tablet 10 mg PO DAILY 30 Days Qty: 30 6RF aspirin 81 mg Capsule 81 mg PO DAILY 30 Days Qty: 30 6RF Discontinued Jardiance 25 mg tablet 25 mg PO DAILY Qty: 30 2RF Problem Reconciliation Problems Reviewed?: Yes Patient Discharge Instructions Additional Instructions: ? Please ensure you are taking midodrine 5 mg 3 times daily to help with your blood pressures. ? Since we have stopped Jardiance (likely contributing to your symptoms), I have started Januvia 50 mg daily to help treat your diabetes. ? Please follow-up with your PCP and cardiology in 1 week for further evaluation management. Patient Instructions: Nausea (Alternative Therapy), Orthostatic Hypotension, DI for Chest Pain, Nausea and Vomiting-Adult Print Language: Nepalese Providers Primary Care Provider: Mila Lange Admit Provider: Naveen Cantu Attending Provider: Naveen Cantu
[2024-10-30 08:23] LABS: Reflex Lactic Add Lactic Reflex
--- NOTE | 2024-10-30 09:04 | HMH.PHAINT1 ---
Pharmacy Intervention Comments: MEDICATION RECONCILIATION COMPLETE USING EXTERNAL PHARMACY FILL HISTORY AND RECENT HOSPITAL DISCHARGE NOTE.
[2024-10-30 09:11] LABS: Lactic Acid Follow Up (RFLX 1) 1.7 mmol/L (0.7-2.1)
[2024-10-30] MEDS: PRASUGREL 10MG TAB 10 MG PO (09:27)
[2024-10-30] MEDS: ASPIRIN EC 81MG TABLET 81 MG PO (09:27)
[2024-10-30 10:47] LABS: POC Glucose,Bedside 346 gm/dL (70-110)
--- NOTE | 2024-10-30 11:02 | EXP.CARD.CON ---
History of Present Illness History of Present Illness Consult date: 10/30/24 Requesting physician: Naveen Cantu Chief complaint: HYPOTENSION History of present illness: Tashi Martin is a 64-year-old white male with a past medical history of coronary artery disease status post recent stenting, iatrogenic hypotension and hyperlipidemia who presented to emergency department with complaints of chest pain, hypotension, lightheadedness and nausea vomiting. On presentation to emergency department blood pressure was 97/65. EKG showed normal sinus rhythm at a rate of 75, negative for STEMI. Patient received IV fluid bolus and his home dose of midodrine for treatment as patient had not taken dose. Sodium 135, creatinine 0.8. Serial troponins remain negative. proBNP 291. Chest CTA negative for acute findings. Patient was admitted for cardiology evaluation. This morning he reports he is overall feeling better. No further episodes of vomiting. Negative orthostatic vitals. Blood pressure is stable. [facility] Disclaimer: The information contained in this section may have been updated after the patient was seen, as this information can be updated by other users. Medical History Angina pectoris Coronary arteritis Leukocytosis Cystic-bullous disease of lung Abnormal electrocardiogram [ECG] [EKG] Coronary artery disease Enlarged prostate Dizziness Syncope Cystic lung, congenital History of pneumothorax Atrial fibrillation and flutter Presence of stent in LAD coronary artery Pericardial effusion without cardiac tamponade PNA (pneumonia) Diabetes GERD (gastroesophageal reflux disease) Pericarditis Angina at rest History of heart attack Hyperlipidemia Palpitations Hypertension Heart murmur Arrhythmia History of left heart catheterization (LHC) RBBB (right bundle branch block with left anterior fascicular block) Surgical History History of cardiac cath Hx of heart artery stent Previous back surgery Family History Other Family history of COPD (chronic obstructive pulmonary disease) Family history of hyperlipidemia Family history of hypertension Family history of myocardial infarction Family history of stroke Lung cancer Social History (Updated 10/18/24 @ 22:03 by Rowena Neumann RN) Smoking Status: Smoker, status unknown tobacco type: cigarettes packs per day: 1 pack-years: 52 alcohol intake: former current occupational status: previously employed and disabled Travel in the last 8 weeks?: None Have you lived/traveled outside [place] in past 30 days?: No Contact w/someone who lives/traveled outside [place] past 30 days?: No Exposure to someone with infectious disease in past 14 days?: No Do you have a fever (greater than 100.4 F or 38 C)?: No Have you tested positive for COVID-19?: No Exposed to someone with COVID-19 in past 14 days?: No Do you have a sore throat?: No Do you have a cough?: No Do you have any weakness?: No Do you have any diarrhea?: No Are you experiencing any unusual bleeding?: No Do you have any muscle aches/pain?: No Do you have any abdominal pain?: No Are you experiencing loss of taste or smell?: No Review of Systems Review of Systems Review of systems:: pertinent systems reviewed and negative unless documented below Constitutional Constitutional: Reports system reviewed and no additional complaints, except as documented *Cardiovascular Cardiovascular: Reports system reviewed and no additional complaints, except as documented *Respiratory Respiratory: Reports system reviewed and no additional complaints, except as documented *Gastrointestinal Gastrointestinal: Reports system reviewed and no additional complaints, except as documented *Neurologic Neurologic: Reports system reviewed and no additional complaints, except as documented and Denies confusion Psychiatric Psychiatric: Reports system reviewed and no additional complaints, except as documented and Denies confusion Exam Data for Last 24 hours Vital signs and Labs for Last 24 Hours: Temp Pulse Resp BP Pulse Ox O2 Del Method 99.5 F 79 23 122/78 95 Room Air 10/30/24 06:50 10/30/24 10:22 10/30/24 07:30 10/30/24 10:22 10/30/24 07:30 10/30/24 09:00 Laboratory Results - last 24 hr 10/30/24 04:10: WBC 12.7 H, RBC 4.48 L, Hgb 14.0 L, Hct 40.3 L, MCV 90.0, MCH 31.3 H, MCHC 34.7, RDW 12.6, Plt Count 177, MPV 10.6 H, Neut % (Auto) 65.2, Lymph % (Auto) 25.9, [place] % (Auto) 6.8, Eos % (Auto) 1.3, Baso % (Auto) 0.5, Neut # (Auto) 8.3 H, Lymph # (Auto) 3.3, [place] # (Auto) 0.9, Eos # (Auto) 0.2, Baso # (Auto) 0.1, PT 11.6, INR 1.05, VBG pH 7.31, VBG pCO2 38.9, VBG pO2 63.8 H, VBG HCO3 19.3 L, VBG Total CO2 20.5 L, VBG O2 Saturation 91.2 H, VBG Base Excess -6.9 L, VBG Lactic Acid 2.1 H, Sodium 135 L, Potassium 4.4, Chloride 103, Carbon Dioxide 22, Anion Gap 14.4, BUN 19, Creatinine 0.80, Estimated Creat Clear 96, Estimated GFR 97, Est GFR ( Amer) 117, Glucose 332 H, Calcium 9.3, Total Bilirubin 0.6, AST 37, ALT 34, Alkaline Phosphatase 83, Troponin I < 0.01, NT-Pro-B Natriuret Pep 291 H, Total Protein 6.3, Albumin 4.0, Globulin 2.3, Albumin/Globulin Ratio 1.7, Plasma/Serum Alcohol < 10, Acetone Level None detected 10/30/24 05:45: Urine Color Yellow, Urine Appearance Clear, Urine pH 6.0, Ur Specific [place] <= 1.005, Urine Protein Negative, Urine Glucose (UA) 3+, Urine Ketones Negative, Urine Blood Negative, Urine Nitrate Negative, Urine Bilirubin Negative, Urine Urobilinogen 0.2, Ur Leukocyte Esterase Negative, Urine WBC Occasional, Ur Squamous Epith Cells 3-5, Urine Bacteria Trace, Urine Opiates Screen Negative, Urine Methadone Screen Negative, Ur Barbituates Screen Negative, Ur Phencyclidine Scrn Negative, Ur Amphetamines Screen Negative, U Benzodiazepines Scrn Negative, Urine Cocaine Screen Negative, U Marijuana (THC) Screen Negative 10/30/24 07:16: Troponin I < 0.01 10/30/24 08:55: Lactate 1.7 10/30/24 10:37: POC Glucose 346 H* I & O for Last 24 hours: Intake & Output 10/27/24 10/28/24 10/29/24 10/30/24 23:59 23:59 23:59 23:59 Intake Total 1000 / 1000 Output Total 400 / 400 Balance 600 / 600 Weight 208 lb Constitutional Constitutional: no acute distress *Routine Respiratory Exam Respiratory: Present CTA bilaterally and symmetric chest movement *Routine Cardiovascular Exam Cardiovascular: Present RRR, Normal S1 and Normal S2 *Routine Abdominal Exam Abdominal: Present soft and normoactive bowel sounds; Absent tenderness *Routine Extremities Exam Extremities: Present full ROM and normal capillary refill; Absent edema *Routine Skin Exam Skin: Present intact, dry and warm Detailed Neck Exam: Thyroids Thyroid: Absent bruit Meds Home Medications and Allergies Home Medications ?Medication ?Instructions ?Recorded ?Confirmed ?Type blood sugar diagnostic (Accu-Chek 01/17/24 10/30/24 History Guide test strips) lancets (Accu-Chek Softclix 01/17/24 10/30/24 History Lancets) duloxetine 30 mg capsule,delayed 30 mg PO DAILY 05/17/24 10/30/24 History release nitroglycerin 0.4 mg sublingual 0.4 mg sublingual Q5MINP PRN Chest 05/17/24 10/30/24 History tablet Pain rosuvastatin 40 mg tablet 40 mg PO HS 05/17/24 10/30/24 History blood-glucose sensor (Dexcom G7 #1 ea 08/02/24 10/30/24 History Sensor device) aspirin 81 mg capsule 81 mg PO DAILY 30 days #30 caps 08/28/24 10/30/24 Rx prasugrel HCl 10 mg tablet 10 mg PO DAILY 30 days #30 tabs 08/28/24 10/30/24 Rx (Effient) omeprazole 40 mg capsule,delayed 40 mg PO DAILY #90 caps 09/07/24 10/30/24 Rx release ranolazine 1,000 mg 1,000 mg PO BID 10/18/24 10/30/24 History tablet,extended release,12 hr tamsulosin 0.4 mg capsule 0.4 mg PO HS 10/18/24 10/30/24 History midodrine 5 mg tablet 5 mg PO TID 30 days #90 tabs 10/19/24 10/30/24 Rx sitagliptin phosphate 50 mg tablet 50 mg PO DAILY #30 tabs 10/30/24 Rx (Januvia) New Prescriptions to Start Prescriptions: sitagliptin phosphate [Januvia] Naveen Cantu Allergies Allergy/AdvReac Type Severity Reaction Status Date / Time bee venom protein (honey bee) Allergy Anaphylaxis Verified 10/18/24 13:27 gabapentin Allergy Anaphylaxis Verified 10/18/24 13:27 insect venom Allergy Anaphylaxis Verified 10/18/24 13:27 Assessment and Plan *Assessment and plan (1) Chest pain: Status: Acute Qualifiers: Chest pain type: unspecified Qualified Code(s): R07.9 - Chest pain, unspecified Category: Medical Code(s): R07.9 - Chest pain, unspecified (2) Iatrogenic hypotension: Status: Acute Category: Medical Code(s): I95.89 - Other hypotension (3) Coronary artery disease: Status: Acute Qualifiers: Associated angina: with other forms of angina Coronary Disease-Associated Artery/Lesion type: [place] artery [place] vs. transplanted heart: [place] heart Qualified Code(s): I25.118 - Atherosclerotic heart disease of [place] coronary artery with other forms of angina pectoris Category: Medical Code(s): I25.10 - Atherosclerotic heart disease of [place] coronary artery without angina pectoris Plan Hx of ongoing hypotension Blood pressure improved after midodrine dose yesterday. Patient is not orthostatic this morning Recommend stopping Jardiance Should consider stopping Flomax if at all possible Patient needs to be sure he is taking midodrine 5 mg p.o. 3 times daily before we increase the dose Stay hydrated, eat small frequent meals, compression stockings as needed History of coronary artery disease Stable angina Left heart catheterization 08/2024-ZAKIYA to mid and distal LAD x 2, 1 ZAKIYA to proximal to mid ramus, persistent severe apical LAD disease , moderate in-stent restenosis in the ostial proximal dominant right coronary. Continue Ranexa 1000 mg p.o. twice daily. Cannot tolerate Imdur. Cannot tolerate beta-demetri, calcium channel demetri due to hypotension Continue aspirin, Effient and statin Echo [id number] biventricular systolic function CV summary 10/30/2024: Recommend to stop Jardiance and consider stopping Flomax. Patient needs to be diligent in taking his midodrine 5 mg p.o. 3 times daily before we increase the dose. Patient is CV stable for discharge home. Please have patient follow-up in cardiology clinic this week with Antelmo for further evaluation. CV meds for discharge Midodrine 5 mg p.o. 3 times daily Ranexa 1000 mg p.o. twice daily 81 mg p.o. daily Simvastatin 40 mg p.o. daily Effient 10 mg p.o. daily
[2024-10-30 11:04] LABS: Troponin I < 0.01 ng/ml (0.00-0.034)
[2024-10-30] MEDS: humaLOG 100 UNITS/ML 10ML VIAL (SSI) SUBCUT (11:09)
--- NOTE | 2024-10-30 13:58 | PC.NURSE ---
discharge instructions reviewed with patient, patient verbalizes understanding of medication regimen and follow up appointments.
--- NOTE | 2024-10-31 10:23 | SW/DCPLANNER ---
Spoke with patient on the phone. Patient stated that he is feeling better. Patient stated that he is aware of his upcoming appointments. Patient stated that he did not get his new medicine but will get it today due to the pharmacy of not having it. Patient stated that he has no concerns or questions at this time. Tianna Jimenez
== END 2024-10-30 13:24 | disposition home or self-care (01) ==
LOC: ER 04:35 → 2ND 06:29
PROVIDERS: Admitting Provider Student in an Organized Health Care Education/Training Program; Emergency Provider Emergency Medicine; PCP Family Medicine; Visit Provider Student in an Organized Health Care Education/Training Program
DX: I25.118 Atherosclerotic heart disease of native coronary artery with other forms of angina pectoris (principal); I95.1 Orthostatic hypotension; E11.9 Type 2 diabetes mellitus without complications; K21.9 Gastro-esophageal reflux disease without esophagitis; F41.9 Anxiety disorder, unspecified; F32.A Depression, unspecified; N40.0 Benign prostatic hyperplasia without lower urinary tract symptoms; E78.5 Hyperlipidemia, unspecified; I10 Essential (primary) hypertension; F17.210 Nicotine dependence, cigarettes, uncomplicated; I45.2 Bifascicular block; M43.26 Fusion of spine, lumbar region; K57.30 Diverticulosis of large intestine without perforation or abscess without bleeding; I25.2 Old myocardial infarction; Z82.49 Family history of ischemic heart disease and other diseases of the circulatory system; Z95.5 Presence of coronary angioplasty implant and graft; Z91.030 Bee allergy status; Z91.038 Other insect allergy status; Z88.8 Allergy status to other drugs, medicaments and biological substances; Z79.82 Long term (current) use of aspirin; Z79.899 Other long term (current) drug therapy
CPT/HCPCS: 36415; 71275; 74174; 80053; 80307; 80320; 81001; 82009; 82803; 82962; 83605; 83880; 84484; 85025; 85610; 93005; 96360; 96361; 96372; 99285; G0378; J1650; J7120; Q9967

== ENCOUNTER 2024-11-01 14:22 | Outpatient (CLI) | payer MEDICARE, SELFPAY ==
--- OUTSIDE RECORDS SUMMARY | 2024-10-06 14:02 | XMS_ITS | Encounter Summary ---
Author Organization [facility] Address [address] [place] [address] Care Team Providers Care Prize Coordinator Name Role Phone Efrem Lauren DO Primary Care Provider [phone] Reason for Visit * Reason Comments Chest Pain Encounter Details Date Type Department Care Team ([facility] st Contact Info) Description 10/06/2024 2:02 PM EDT - 10/06/2024 8:35 PM EDT Emergency [facility] Emergency Department [address] [place] [address] Philippe Boo MD [address] [place] [address] Chest pain, unspecified type (Primary Dx); Pneumonia due to infectious organism, unspecified laterality, unspecified part of lung Discharge Disposition: Home or Self Care Social History Tobacco Use Types Packs/Day Years Used Date Smoking Tobacco: Never Assessed Sex and Gender Information Value Date Recorded Sex Assigned at Not on file Legal Sex Male 2:01 PM EDT Gender Identity Not on file Sexual Orientation Not on file documented as of this encounter Last Filed Vital Signs Vital Sign Reading Time Taken Comments Blood Pressure 119/66 10/06/2024 8:00 PM EDT Pulse 75 10/06/2024 8:00 PM EDT Temperature 36.9 C (98.4 F) 10/06/2024 8:00 PM EDT Respiratory Rate 24 10/06/2024 8:00 PM EDT Oxygen Saturation 92% 10/06/2024 8:00 PM EDT Inhaled Oxygen Concentration - - Weight 98.1 kg (216 lb 4.3 oz) 10/06/2024 2:19 P M EDT Height 182.9 cm (6') 10/06/2024 2:19 PM EDT Body Mass Index 29.33 10/06/2024 2:19 PM EDT documented in this encounter Functional Status * Calculated C-SSRS Risk Score (Lifetime/Recent) Answer Date of Assessment Author No Risk Indicated 10/06/2024 2:12 PM EDT Jessie Bay RN * Question Answer Date of Assessment Author 1. Wish to be (Past 1 Month) No 10/06/2024 2:12 PM EDT Jessie Bay RN 2. Non-Specific Active Suici balaji Thoughts (Past 1 Month) No 10/06/2024 2:12 PM EDT Sherrill Bay RN 6. Suicidal Behavior (Lifetime) No 2:12 PM EDT Jessie Bay RN documented as of this encounter Discharge Instructions * Discharge Instructions* Carl Boswell MD - 10/06/2024 8:17 PM EDT Please case picker your prescriptions and take first dose of antibiotics tonight. Take all antibiotics as prescribed. Use all inhalers as prescribed. Please return to ED if your symptoms worsen, change in location, change in severity, new symptoms develop or if you become concerned for your health. documented in this encounter Medications at Time of Discharge azithromycin (Zithromax Z-Braydon) 250 MG tabletIndications :Pneumonia due to infectious organism, unspecified laterality, unspecified part of lung Take 2 tablets day 1 followed by 1 tablet daily on days 2 thru 5 6 tablet 10/06/2024 amoxicillin-clavu lanate (Augmentin) 875-125 MG tabletIndications :Pneumonia due to infectious organism, unspecified laterality, unspecified part of lung Take 1 tablet by mouth 2 times a day for 5 days. 10 tablet 10/06/2024 5 documented as of this encounter Miscellaneous Notes * Consults - Slava Alonso DO - 10/06/2024 6:31 PM EDTAssociated Order(s): Consult to Cardiology Images from the original note were not included. CARDIOLOGY NEW CONSULT NOTE Consult to Cardiology Consult performed by: Slava Alonso DO Consult ordered by: Philippe Boo MD Reason for consult: chest pain SUBJECTIVE History Of Present Illness Tashi Martin is a 64 y.o. male with a past medical history significant for CAD s/p mulitple stents, 1st stents complicated by pericardiocentesis s/p drainage, cholecystectomy, chronic back pain, HTN, HLD, use who initially presented to the [facility] with a chief complaint of chest pain. Cardiology is being consulted at the request of PHILIPPE BOO MD for chest pain. Mr. Martin felt well this morning when he was sitting and visiting with family when he had a stinging pain across his chest. He had a similar pain a few months ago, was evaluated at an outside hospital and was told it was pulmonary in etiology. The pain, at times, radiates into his left arm. He hadassociated symptoms of feeling flushed with sweating and shortness of breath. At the time of our conversation the pain was still present. It does not improve with positions. It is exacerbated by coughing fits and deep breaths. When this onset he called EMS who gave him nitroglycerin, which didn't improve his pain, and 324 mg of aspirin. He mentions this pain is different than the chest pain he had prior to his heart attacks. He had stents placed in [place] 6 weeks ago. Prior to that his last cardiac stents were 3-4 years ago. Again the pain he is having today is different than cardiac pain in the past. He denies fluttering in his chest, passing out nausea, and vomiting. The feeling of sweats, flushed, and warm is similar to when his glucose levels are high and he mentions EMS noting glucose of over 500 today. He took his medications but his insulin. He believes he is on multiple blood thinning medications but cannot remember the name of them. Review of Systems 14 point ROS reviewed and is otherwise negative except that which is mentioned in the HPI. Past Medical History Past Medical History[1] Surgical History Surgical History[2] Family History Reviewed and non-contributory. Father 4-5 UT's and CVA. Over 60 with UT's. Social History Tobacco use: 50+ years 1 PPD. Quit 08/2024 Alcohol use: Denies any significant recent usage. Other: Denies any recent illicit drug use. Allergies Gabapentin and Wasp venom protein Home Medications Current Outpatient Medications Medication Instructions amoxicillin-clavulanate (Augmentin) 875-125 MG tablet 1 tablet, Oral, 2 times daily azithromycin (Zithromax Z-Braydon) 250 MG tablet Take 2 tablets day 1 followed by 1 tablet daily on days 2 thru 5 OBJECTIVE Physical Exam Visit Vitals BP 119/66 (BP Location: Right arm, Patient Position: Lying) Pulse 75 Temp 36.9 ??C (98.4 ??F) (Oral) Resp 24 Ht 1.829 m (6') Wt 98.1 kg (216 lb 4.3 oz) SpO2 92% BMI 29.33 kg/m?? BSA 2.23 m?? Physical Exam Blood pressure 119/66, pulse 75, temperature 36.9 ??C (98.4 ??F), temperature source Oral, resp. rate 24, height 1.829 m (6'), weight 98.1 kg (216 lb 4.3 oz), SpO2 92%. GENERAL: Awake, alert, mild distress HEENT: NCAT NECK: No appreciable JVD CARDIAC: Regular rate, regular rhythm, normal S1/S2, no m/r/g, 2+ radial pulses bilaterally PULM: CTAB without increased work of breathing on supplemental oxygen ABD: Soft, NT, ND, obese EXT: Warm and well perfused, no LE edema SKIN: No rashes or lesions NEURO: A&Ox4, moving all extremities spontaneously Primary Study Review: I personally reviewed the images/tracings of the following studies: ECG, chest x-ray, and non-cardiac chest CT Lab Review Results from last 7 days Lab Units 10/06/24 1516 SODIUM mmol/L 131* POTASSIUM mmol/L 4.3 CHLORIDE mmol/L 95* CO2 mmol/L 21* BUN mg/dL 15 CREATININE mg/dL 0.82 CALCIUM mg/dL 10.4* BILIRUBIN TOTAL mg/dL 0.4 ALKALINE PHOSPHATASE U/L 99 ALT U/L 29 AST U/L 31 GLUCOSE mg/dL 446* Lab Results Component Value Date GLUCOSE 446 (H) 10/06/2024 CALCIUM 10.4 (H) 10/06/2024 NA 131 (L) 10/06/2024 K 4.3 10/06/2024 CO2 21 (L) 10/06/2024 CL 95 (L) 10/06/2024 BUN 15 10/06/2024 CREATININE 0.82 10/06/2024 Results from last 7 days Lab Units 10/06/24 1516 WBC 10*3/uL 10.86* HEMOGLOBIN g/dL 15.9 HEMATOCRIT % 44.4 PLATELETS 10*3/uL 217 No lab exists for component: NTPROBNP Results from last 7 days Lab Units 10/06/24 1516 NT PROBNP pg/mL <50 ECG: Reviewed Previous Echo: No echocardiogram results found for the past 12 months Imaging CTA chest 1. No acute traumatic aortic injury. 2. No acute findings in the chest. No evidence of pericardial effusion 3. Lower lobe predominant cystic change probably represents bullae in the setting of mild emphysema, however cystic lung disease is also possible, in which case lymphocytic interstitial pneumonia or Bblk-Rvue-Fluy syndrome are the most likely cause cysts in this distribution. ASSESSMENT/PLAN Tashi Martin is a 64 y.o. male who initially presented to the [facility] for chest pain, and Cardiology is being consulted for recommendations and management of rule out of ACS. 1) Hx of CAD s/p multi-vessel CAD and PCI (care everywhere mentions LAD/Ramus stents) 2) Non-cardiac chest pain 3) Tobacco use disorder 4) Pulmonary nodules 5) Hyperglycemia in setting of history of DM Mr. Martin has a significant history of cardiac disease with multiple PCI's the most recent being 6weeks ago where he required multiple stents at [facility]. He mentions this was an elective outpatient procedure after normal testing but persistent chest discomfort. He is uncertain of where the stents were placed and what blood thinner he is supposed to be on. He has felt well since his cath until today when he had a stinging chest pain. The chest pain today is different than his prior cardiac pain and the pain is exacerbated by coughing and deep breaths. His associated symptoms of dyspnea, diaphoresis, and feeling warm are similar to when he has had hyperglycemia, which he presented with today. He has normal troponins, BNP and an ECG without concerning findings for STEMI. Per care everywhere he has had LAD and RBBB as well as t wave abnormalities in the inferior and precordial leads. I do not suspect cardiac etiology for his chest pain and recommend further evaluation for pulmonaryvs MSK etiologies with him mentioning pleuritic chest pain as well as exacerbation with coughing. If this was cardiac in nature or complications from his recent PCI would suspect abnormalities in histroponin/ECG and pain would not be exacerbated by his cough. CTA chest negative for an acute pulmonary embolism and no evidence of a pericardial effusion. Does have evidence of cystic lung disease onimaging. Recommendations: -do not suspect cardiac etiology of his chest pain -evaluate for other etiologies of his pain (pulmonary vs MSK) -recommend lowering glucose levels prior to discharge -follow up outpatient for cystic lung disease etiology vs mild emphysema The following cardiovascular risk factors and co-morbidities complicates the management of these conditions: Tobacco use disorder This consult will be seen and staffed with the following attending physician: Dr Sprague. Please consider these recommendations preliminary until the note has been cosigned by the attending physician.Please page the on-call form drafter ([phone]) with any further questions. I spent 30 minutes performing the following components of the encounter (on the day of the encounter): reviewing history, examining the patient, and entering clinical information in the EHR. Armin Alonso DO Department of Cardiovascular Disease Fellow, PGY-4 [1] No past medical history on file. [2] No past surgical history on file. Cosigned by Karey Sprague MD at 10/07/2024 8:51 AM EDT Associated attestation - Karey Sprague MD - 10/07/2024 8:51 AM EDT I discussed the case with Dr. Alonso and agree with the findings and plan as documented. The patient was discharged from the Emergency Department prior to my in-person evaluation. * ED Provider Notes - Carl Boswell MD - 10/06/2024 2:01 PM EDT Images from the original note were not included. - HPI Chief Complaint Patient presents with Chest Pain Tashi Martin is a 64 y.o male with a PMH of UT w/ stent placement x7, T2DM, COPD, diastolic HF who presented to the ED with chest pain of 2 hours that began suddenly, is diffuse but localized more to the right but has some radiation to the left shoulder and jaw. The patient states this pain does not feel like his prior UT. He states subjective SOA but is oxygenating well. Patient given nitroglycerin with EMS with no improvement in pain. His last stent was placed 4 weeks ago. He states he has beenexperiencing transient chest pain since his last stent, but today began experiencing worsened chestpain that prompted his family to call EMS. He has been experiencing polyuria and polydipsia since beginning jardiance. On presentation pt was stable & afebrile. He confirms preexisting left sidedweakness and chronic back pain without acute change. Patient History Past Medical History[1] Surgical History[2] Family History[3] Social History[4] Allergies: Allergies[5] Physical Exam ED Triage Vitals [10/06/24 1419] Temp Heart Rate Resp BP 36.5 ??C (97.7 ??F) 76 20 (!) 142/92 SpO2 Temp Source Heart Rate Source Patient Position 96 % Oral Monitor Lying BP Location FiO2 (%) Right arm -- Physical Exam Constitutional: General: He is not in acute distress. Appearance: He is ill-appearing. HENT: Head: Normocephalic and atraumatic. Nose: Nose normal. Mouth/Throat: Mouth: Mucous membranes are dry. Cardiovascular: Rate and Rhythm: Normal rate and regular rhythm. Pulses: Normal pulses. Pulmonary: Effort: Pulmonary effort is normal. No tachypnea or respiratory distress. Breath sounds: Rales (bilateral) present. No decreased breath sounds, wheezing or rhonchi. Musculoskeletal: General: Normal range of motion. Skin: General: Skin is warm and dry. Neurological: Mental Status: He is alert and oriented to person, place, and time. Psychiatric: Mood and Affect: Mood normal. [place] Coma Scale Score: 15 HEART Score: 7 ED Course & MDM - Assessment: 64 y.o. male presents to ED with complaint of chest pain. It should be noted that the chronic conditions includes UT w/ stent placement x7, T2DM, COPD, diastolic HF, which currently is not at goal therapy. This complicates the clinical picture because it Comorbidities: may be exacerbating symptoms Differential Diagnosis: Differential diagnosis includes but is not limited to acute coronary syndrome, aortic dissection, pericarditis, pulmonary embolism, pneumothorax, pneumonia, gastroesophageal reflux, esophageal rupture, costochondritis, panic attack, and referred pain. In order to fully explore the differential diagnosis the following treatments and tests were ordered: ED Medication Administration from 10/06/2024 1401 to 10/06/2024 2313 Date/Time Order Dose Route Action 10/06/2024 1547 EDT iohexol (OMNIPaque) 350 MG/ML injection 100 mL 100 mL Intravenous Given 10/06/2024 184 EDT lactated Ringer's infusion 500 mL 500 mL Intravenous New Bag 10/06/2024 1919 EDT ipratropium-albuterol (Duo-Neb) 0.5-2.5 mg/3 mL nebulizer solution 3 mL 3 mL Nebulization Given 10/06/20242034 EDT lactated Ringer's infusion 500 mL 0 mL Intravenous Stopped All Other Orders Ordered Status Ordering Provider 10/06/24 1849 POCT glucose meter PROCEDURE ONCE Final result PHILIPPE BOO 10/06/24 1751 EKG now - STAT (adult) Once Preliminary result CARL BOSWELL 10/06/24 1748 Consult to Cardiology Once Specialty: Cardiology Provider: (Not yet assigned) Completed CARL BOSWELL 10/06/24 1557 Troponin T, High Sensitivity, 2 Hour, Plasma PROCEDURE ONCE Final result CARL BOSWELL 10/06/24 1556 Anti Xa Level Unfractionated Heparin STAT Final result CARL BOSWELL 10/06/[address] Angio Chest Once Final result CARL BOSWELL 10/06/24 1446 XR Chest 1 View One time imaging Final result CARL BOSWELL 10/06/24 1446 Beta-Hydroxybutyric Acid STAT Final result CARL BOSWELL 10/06/24 1446 CMP STAT Final result CARL BOSWELL 10/06/24 1446 Magnesium STAT Final result CARL BOSWELL 10/06/24 1446 Phosphorus STAT Final result CARL BOSWELL 10/06/24 1446 Blood gas panel, venous STAT Final result CARL BOSWELL 10/06/24 1446 BNP STAT Final result CARL BOSWELL 10/06/24 1446 Troponin now and 120 min STAT Final result CARL BOSWELL 10/06/24 1446 CBC w/diff STAT Final result CARL BOSWELL 10/06/24 1446 PT-INR STAT Final result CARL BOSWELL 10/06/24 1446 Urinalysis with reflex microscopic AND reflex culture (IF UTI SUSPECTED) STAT Preliminary result CARL BOSWELL 10/06/24 1446 Urinalysis with reflex microscopic (Culture NOT Included) PROCEDURE ONCE Final result CARL BOSWELL 10/06/24 1446 Urine Gordon Panel PROCEDURE ONCE Preliminary result CARL BOSWELL 10/06/24 1417 POCT glucose meter PROCEDURE ONCE Final result POCT, GENERIC PROVIDER 10/06/24 1410 EKG now - STAT (adult) Once Preliminary result PHILIPPE BOO ED Course as of 10/06/24 2313 Sat Oct 06, 2024 1553 On initial evaluation, patient is hemodynamically stable. Patient reports acute onset chest pain approximately 2 hours prior to arrival. Patient has history of multiple cardiac stents and diastolic heart failure. He reports that he takes a blood thinner, but cannot recall the name. On my evaluation, patient is coughing and clutching his chest. He reports subjective shortness of breath with oxygen saturation 98%. Placed him on 1 L nasal cannula for comfort. He reports that chest pain is different than with prior MIs. He reports that pain is primarily on the right side. He has clear bilateral breath sounds. [TV] 1556 CBC w/diff(!) Leukocytosis. No actionable abnormalities [TV] 1556 POCT Glucose(!): 520 Elevated [TV] 1556 Blood gas panel, venous(!) Normal pH with decreased pCO2. [TV] 1557 Urinalysis with reflex microscopic AND reflex culture (IF UTI SUSPECTED)(!) Low concern for infection. [TV] 1559 XR Chest 1 View XR was personally interpreted and I can appreciate possible widened mediastinum. Radiology read in agreement and also adds mildly prominent mediastinum and right hilum with postsurgical changes. Please see full radiology report for full details. [TV] 1559 EKG now - STAT (adult) ECG read by me demonstrates right bundle branch block, no ST elevation or deviation. No overt signsof ischemia or arrhythmia. [TV] 1559 PT-INR WNL [TV] 1632 Magnesium(!): 1.8 Mildly low [TV] 1632 CMP(!) Elevated glucose. Mild hyponatremia [TV] 1646 CT Angio Chest CTs were personally interpreted and I do not appreciate any obvious aortic dissection. Radiology reads in agreement and also adds the followin. No acute traumatic aortic injury. 2. No acute findings in the chest. 3. Lower lobe predominant cystic change probably represents bullae in the setting of mild emphysema, however cystic lung disease is also possible, in which case lymphocytic interstitial pneumonia or Mlqx-Txsz-Sfvn syndrome are the most likely cause cysts in this distribution. Please see full radiology report for full details. [TV] 1758 Given patient's complex cardiac history, Cardiology consulted for evaluation [TV] 1851 Troponin T, High Sensitivity, 2 Hour: 12 No significant delta troponin [TV] 1852 Urinalysis with reflex microscopic AND reflex culture (IF UTI SUSPECTED)(!) Low suspicion for infection [TV] 2306 Cardiology reports low concern for ACS or cardiac reason for chest pain. Given patient's history of COPD and new onset cough, patient treated with DuoNeb. Patient also given 500 mL of LR. On re-evaluation, patient reported improvement in symptoms after treatment. Given this, a pulmonary cause of patient's pain is suspected. With history of COPD and a possible pneumonia on CT scan, we will treat patient for infection. Advised patient to continue using his inhalers at home and to take all antibiotics as prescribed. He reported understanding and is agreeable to plan. Return precautions discussed. Also discussed cystic changes seen on CT scan in lungs and patient reported that this was previously known. Patient remained hemodynamically stable. All questions and concerns were discussed prior to discharge. [TV] ED Course User Index [TV] Carl Boswell MD Clinical Impressions as of 10/06/24 231 Chest pain, unspecified type Pneumonia due to infectious organism, unspecified laterality, unspecified part of lung Social Determinates of Health Risks (including Economic Stability, Education and level of understanding, Healthcare access and quality and concerning social factors): Lives far away Ultimately, this patient was Was discharged Home (Discharge) The primary encounter diagnosis was Chest pain, unspecified type. A diagnosis of Pneumonia due to infectious organism, unspecified laterality, unspecified part of lung was also pertinent to this visit. . Patient was counseled on the diagnoses. Discharge medications if any are listed below. Listed medications are thought be either curative for listed diagnoses or will help control ongoing symptoms. Patient is requested to follow up with Cardiology in order to obtain specialty care. Instructions on follow up as well as precautions to return to the ER provided verbally by the EM provider, as well as written in patients discharge education packet. ED Prescriptions Medication Sig Dispense Start Date End Date Auth. Provider azithromycin (Zithromax Z-Braydon) 250 MG tablet Take 2 tablets day 1 followed by 1 tablet daily on days 2 thru 5 6 tablet 10/06/2024 -- Carl Boswell MD amoxicillin-clavulanate (Augmentin) 875-125 MG tablet Take 1 tablet by mouth 2 times a day for 5 days. 10 tablet 10/06/2024 10/11/2024 Carl Boswell MD Discharge Instructions Please case picker your prescriptions and take first dose of antibiotics tonight. Take all antibiotics as prescribed. Use all inhalers as prescribed. Please return to ED if your symptoms worsen, change in location, change in severity, new symptoms develop or if you become concerned for your health. Disposition Discharge AVS ([place]ish Snapshot) - Printed 10/06/2024 [1] No past medical history on file. [2] No past surgical history on file. [3] No family history on file. [4] [5] Allergies Allergen Reactions Gabapentin Swelling Wasp Venom Protein Anaphylaxis Carl Boswell MD Resident 10/06/24 4080 Cosigned by Philippe Boo MD at 10/07/2024 6:37 PM EDT Associated attestation - Philippe Boo MD - 10/07/2024 6:37 PM EDT I saw and evaluated the patient with the resident/fellow. I discussed the case with the resident/fellow and agree with the findings and plan as documented. * ED Triage Notes - Jessie Bay RN - 10/06/2024 2:01 PM EDT Pt arrived via EMS for CP that started about 2 hours [facility], worse after eating. SL 0.4mg Nitroglycerin administered without relief. 324mg ASA administered Per EMS [facility]. HX of previous UT with stents placed documented in this encounter Plan of Treatment Not on file documented as of this encounter Procedures Procedure Name Priority Date/Time Associated Diagnosis Comments POCT GLUCOSE METER UNSOLICITED RESULTS Routine 10/06/2024 6:49 PM EDT ECG ADULT STAT 10/06/2024 5:56 PM EDT TROPONIN T, HIGH SENSITIVITY, 2 HOUR, PLASMA Timed 10/06/2024 5:40 PM EDT ANTI XA LEVEL UNFRACTIONATED HEPARIN STAT 10/06/2024 4:[address] ANGIO CHEST STAT 10/06/2024 3:52 PM EDT TROPONIN T, HIGH SENSITIVITY, 0 HOUR, PLASMA, REFLEX TO 2 HOUR STAT 10/06/2024 3:16 PM EDT BETA HYDROXYBUTYRIC ACID STAT 10/06/2024 3:16 PM EDT N-TERMINAL PROBNP, PLASMA STAT 10/06/2024 3:16 PM EDT PROTHROMBIN TIME(PT) / INR STAT 10/06/2024 3:16 PM EDT CBC WITH AUTO DIFFERENTIAL STAT 10/06/2024 3:16 PM EDT PHOSPHORUS, PLASMA STAT 10/06/2024 3: 16 PM EDT MAGNESIUM, PLASMA STAT 10/06/2024 3:1 6 PM EDT BLOOD GAS PANEL, VENOUS STAT 10/07/19 3:16 PM EDT COMPREHENSIVE METABOLIC PANEL, PLASMA STAT 10/06/2024 3:16 PM EDT XR CHEST 1 VIEW STAT 10/06/2024 3:12 PM EDT URINALYSIS WITH REFLEX MICROSCOPIC AND CULTURE STAT 10/06/2024 3:06 PM EDT URINE GORDON PANEL STAT 10/06/2024 3:06 PM EDT URINALYSIS WITH REFLEX MICROSCOPIC STAT 10/06/2024 3:06 PM EDT POCT GLUCOSE METER UNSOLICITED RESULTS Routine 10/06/2024 2:17 PM EDT ECG ADULT STAT 10/06/2024 2:13 PM EDT documented in this encounter Results * (ABNORMAL) POCT glucose meter (10/06/2024 6:49 PM EDT) POCT Glucose 253(H) 74 - 99 mg/dL 10/06/2024 6:50 PM EDT [facility] Comment:Accuracy of a glucos e result obtained from a capillary whole blood specimen relies upon adequate, non-compromised capillary blood flow. If the capillary glucose result is not consistent with the patient's clinical signs and symptoms, glucose testing should be repeated with either an arterial or venous sample on the glucometer or sent to the main labortory for testing. Comment 10/06/2024 6:50 PM EDT [facility] Shop Laborer ID Paulina [email or web address] 10/06/2024 6:50 PM EDT [facility] Device ID [id number] 10/06/2024 6:50 PM EDT [facility] Specimen Type POC Capillary 10/06/2024 6:50 PM EDT [facility] Blood Capillary blood specimen / Unknown 10/06/2024 6:49 PM EDT 10/06/2024 6:50 PM EDT Philippe Boo MD LAB POINT OF CARE TE ST DOCKED DEVICE UNSOLICITED RESULTS Final Result [facility] [address] [place] [address] * EKG now - STAT (adult) (10/06/2024 5:56 PM EDT) EKG DIAGNOSIS CLASS Abnormal MUSE ECG Ventricular Rate 72 BPM MUSE ECG Atrial Rate 72 BPM MUSE ECG IN Interval 170 ms MUSE ECG QRSD Interval 134 ms MUSE ECG QT Interval 460 ms MUSE ECG QTC Interval 503 ms MUSE ECG P Widen 23 degrees MUSE ECG R Widen -69 degrees MUSE ECG T Wave Widen -3 degrees MUSE ECG Diagnosis Normal sinus rhythm MUSE ECG Diagnosis Left axis deviation MUSE ECG Diagnosis Right bundle branch block MUSE ECG Diagnosis Abnormal ECG MUSE ECG Diagnosis MUSE ECG Diagnosis Confirmed by Albino Reveles ([id number]) on 10/07/2024 10:14:31 AM MUSE ECG 10/06/2024 5:56 PM EDT 10/07/2024 10:14 AM EDT Philippe Boo MD ECG ORDERABLES Final Result MUSE ECG * Troponin T, High Sensitivity, 2 Hour, Plasma (10/06/2024 5:40 PM EDT) Pathologist [facility] Troponin T, High Sensitivity, 2 Hour 12 <19 ng/L 10/06/2024 6:23 PM EDT [facility] Blood Venous blood specimen / Unknown Venipuncture / Unknown 10/06/2024 5:40 PM EDT 10/06/2024 5:54 PM EDT Donnell Beverly MD LAB BLOOD ORDERABLES Lori l Result [facility] [address] [place] [address] * Anti Xa Level Unfractionated Heparin (10/06/2024 4:17 PM EDT) Anti Xa Level Unfractionated Heparin <0.11 <1.00 IU/mL LAB COAGULATION METHOD 10/06/2024 4:53 PM EDT [facility] Blood Venous blood specimen / Unknown Venipuncture / Unknown 10/06/2024 4:17 PM EDT 10/06/2024 4:27 PM EDT Narrative [facility] - 10/06/2024 4:53 PM EDT Therapeutic Range: UFH Full Dose and ACS/UT protocols*: 0.30 - 0.70 IU/mL UFH Low Dose protocol*: 0.25 - 0.50 IU/mL UFH prophylaxis: Not established us Philippe Boo MD LAB BLOOD ORDERABLES Final Res ult [facility] [address] [place] [address] * CT Angio Chest (10/06/2024 3:52 PM EDT) Anatomical Region Laterality Modality Chest Computed Tomogra phy Impressions 10/06/2024 4:43 PM EDT 1. No acute traumatic aortic injury. 2. No acute findings in the chest. 3. Lower lobe predominant cystic change probably represents bullae in the setting of mild emphysema, however cystic lung disease is also possible, in which case lymphocytic interstitial pneumonia or Uwvy-Uyrh-Zilr syndrome are the most likely cause cysts in this distribution. CRITICAL RESULT: No. COMMUNICATION: Per this written report. Preliminary report signed by Carter Canada MD on 10/06/2024 4:35 PM By electronically signing this report, I, the attending physician, attest that I have personally reviewed the images/data for the above examination(s) and agree with the final edited report. Drafted by Carter Canada MD on 10/06/2024 4:25 PM Final report signed by Benito Blair MD on 10/06/2024 4:43 PM Narrative 10/06/2024 4:43 PM EDT CLINICAL INDICATION: SOB TECHNIQUE: Imaging of the chest was performed, from thoracic inlet through upper abdomen, using spiral technique, following administration of IV contrast, Omnipaque 350, 100 mL according to the CTA thoracic aorta protocol. Reformatted images in the coronal, sagittal, and oblique planes were generated from the axial data set to facilitate diagnostic accuracy. In addition, 3D images were created and reviewed. Total DLP (Dose-Length Product): 473.52 mGy.cm. Please note: The reported value represents the total of one or more individual components during the CT acquisition on this date and at this time, and as such, the same value may appear in more than one CT report depending on the interpreting/reporting physicians. COMPARISON: None. FINDINGS: Chest: Aorta/Vessels: No acute traumatic aortic injury. No periaortic hematoma. Prior coronary artery stenting.. Pleural/Pericardial Space: No pneumothorax. No pleural effusions. No pericardial effusion. Lymph Nodes: No lymphadenopathy within the chest. Lungs: Mild upper lobe predominant centrilobular emphysema. Multiple lower lung predominant cysts. There is scarring throughout the lungs, greater on the right. Prior lingular wedge resection. Mediastinum: Otherwise unremarkable. Chest Wall: No chest wall hematoma or contusion. Bones: No acute fracture within the chest. Upper Abdomen: Hypoattenuating subcentimeter hepatic lesion is indeterminate but may represent cysts (series 5, image 375).. Procedure Note Benito Blair MD - 10/06/2024 CLINICAL INDICATION: SOB TECHNIQUE: Imaging of the chest was performed, from thoracic inlet through upperabdomen, using spiral technique, following administration of IV contrast,Omnipaque 350, 100 mL according to the CTA thoracic aorta protocol.Reformatted images in the coronal, sagittal, and oblique planes weregenerated from the axial data set to facilitate diagnostic accuracy. Inaddition, 3D images were created and reviewed. Total DLP (Dose-Length Product): 473.52 mGy.cm. Please note: The reportedvalue represents the total of one or more individual components during theCT acquisition on this date and at this time, and as such, the same valuemay appear in more than one CT report depending on theinterpreting/reporting physicians. COMPARISON: None. FINDINGS: Chest: Aorta/Vessels: No acute traumatic aortic injury. No periaortic hematoma.Prior coronary artery stenting.. Pleural/Pericardial Space: No pneumothorax. No pleural effusions. Nopericardial effusion. Lymph Nodes: No lymphadenopathy within the chest. Lungs: Mild upper lobe predominant centrilobular emphysema. Multiple lowerlung predominant cysts. There is scarring throughout the lungs, greater onthe right. Prior lingular wedge resection. Mediastinum: Otherwise unremarkable. Chest Wall: No chest wall hematoma or contusion. Bones: No acute fracture within the chest. Upper Abdomen: Hypoattenuating subcentimeter hepatic lesion isindeterminate but may represent cysts (series 5, image 375).. IMPRESSION: 1. No acute traumatic aortic injury. 2. No acute findings in the chest. 3. Lower lobe predominant cystic change probably represents bullae in thesetting of mild emphysema, however cystic lung disease is also possible,in which case lymphocytic interstitial pneumonia or Fekh-Fisr-Lolxmihlfmqm are the most likely cause cysts in this distribution. CRITICAL RESULT: No. COMMUNICATION: Per this written report. Preliminary report signed by Carter Canada MD on 10/06/2024 4:35 PM By electronically signing this report, I, the attending physician, attestthat I have personally reviewed the images/data for the aboveexamination(s) and agree with the final edited report. Drafted by Carter Canada MD on 10/06/2024 4:25 PM Final report signed by Benito Blair MD on 10/06/2024 4:43 PM us Philippe Boo MD IMG CT PROCEDURES Final Result * Beta-Hydroxybutyric Acid (10/06/2024 3:16 PM EDT) Beta-Hydroxybut yric Acid, Plasma 0.21 <=0.27 mmol/L 10/06/2024 4:19 PM EDT [facility] Blood Venous blood specimen / Unknown Venipuncture / Unknown 10/06/2024 3:16 PM EDT 10/06/2024 3:27 PM EDT us Donnell Beverly MD LAB BLOOD ORDERABLES Lori l Result [facility] [address] [place] [address] * PT-INR (10/06/2024 3:16 PM EDT) Prothrombin Time 12.4 12.0 - 14.3 sec LAB COAGULATION METHOD 10/06/2024 3:53 PM EDT [facility] INR 0.9 0.9 - 1.1 LAB COAGULATION METHOD 10/06/2024 3:53 PM EDT [facility] Blood Venous blood specimen / Unknown Venipuncture / Unknown 10/06/2024 3:16 PM EDT 10/06/2024 3:26 PM EDT Narrative [facility] - 10/06/2024 3:53 PM EDT OPTIMAL INR RANGES FOR PATIENT ON ORAL ANTICOAGULANT THERAPY Prevention of venous thromboembolism INR 2.0 to 3.0 In patients with heart disease: Atrial fibrillation INR 2.0 to 3.0 Valvular heart disease INR 2.0 to 3.0 Tissue heart valves INR 2.0 to 3.0 Mechanical prosthetic valves INR 2.5 to 3.5 Prevention of recurrent UT INR 2.5 to 3.5 us Donnell Beverly MD LAB BLOOD ORDERABLES Lori perez Result [facility] [address] [place] [address] * (ABNORMAL) CBC w/diff (10/06/2024 3:16 PM EDT) WBC Count 10.86(H) 3.70 - 10.30 10*3/uL LAB HEMATOLOGY METHOD 10/06/2024 3:34 PM EDT [facility] RBC Count 5.08 4.60 - 6.10 10*6/uL LAB HEMATOLOGY METHOD 10/06/2024 3:34 PM EDT [facility] HGB 15.9 13.7 - 17.5 g/dL LAB HEMATOLOGY METHOD 10/06/2024 3:34 PM EDT [facility] HCT 44.4 40.0 - 51.0 % LAB HEMATOLOGY METHOD 10/06/2024 3:34 PM EDT [facility] Platelet Count 217 155 - 369 10*3/uL LAB HEMATOLOGY METHOD 10/06/2024 3:34 PM EDT [facility] MCV 87 79 - 98 fL LAB HEMATOLOGY METHOD 10/06/2024 3:34 PM EDT [facility] MCH 31.3 26.0 - 32.0 pg LAB HEMATOLOGY METHOD 10/06/2024 3:34 PM EDT [facility] MCHC 35.8(H) 30.7 - 35.5 g/dL LAB HEMATOLOGY METHOD 10/06/2024 3:34 PM EDT [facility] RDW 12.4 11.5 - 14.5 % LAB HEMATOLOGY METHOD 10/06/2024 3:34 PM EDT [facility] MPV 10.4 8.8 - 12.5 fL LAB HEMATOLOGY METHOD 10/06/2024 3:34 PM EDT [facility] nRBC 0.0 <=0.0 per 100 WBCs LAB HEMATOLOGY METHOD 10/06/2024 3:34 PM EDT [facility] Differential Type Automated LAB HEMATOLOGY METHOD 10/06/2024 3:34 PM EDT [facility] Neutrophils % 48 % LAB HEMATOLOGY METHOD 10/06/2024 3:34 PM EDT [facility] Lymphocytes % 41 % LAB HEMATOLOGY METHOD 10/06/2024 3:34 PM EDT [facility] Monocytes % 8 % LAB HEMATOLOGY METHOD 10/06/2024 3:34 PM EDT [facility] Eosinophils % 1 % LAB HEMATOLOGY METHOD 10/06/2024 3:34 PM EDT [facility] Basophils % 1 % LAB HEMATOLOGY METHOD 10/06/2024 3:34 PM EDT [facility] Immature Granulocytes % 1 % LAB HEMATOLOGY METHOD 10/06/2024 3:34 PM EDT [facility] Neutrophils Absolute 5.30 1.60 - 6.10 10*3/uL LAB HEMATOLOGY METHOD 10/06/2024 3:34 PM EDT [facility] Lymphocytes Absolute 4.49(H) 1.20 - 3.90 10*3/uL LAB HEMATOLOGY METHOD 10/06/2024 3:34 PM EDT [facility] Monocytes Absolute 0.81 0.30 - 0.90 10*3/uL LAB HEMATOLOGY METHOD 10/06/2024 3:34 PM EDT [facility] Eosinophils Absolute 0.15 0.00 - 0.50 10*3/uL LAB HEMATOLOGY METHOD 10/06/2024 3:34 PM EDT [facility] Basophils Absolute 0.06 0.00 - 0.10 10*3/uL LAB HEMATOLOGY METHOD 10/06/2024 3:34 PM EDT [facility] Immature Granulocytes Absolute 0.05 0.00 - 0.06 10*3/uL LAB HEMATOLOGY METHOD 10/06/2024 3:34 PM EDT [facility] Blood Venous blood specimen / Unknown Venipuncture / Unknown 10/06/2024 3:16 PM EDT 10/06/2024 3:27 PM EDT Narrative [facility] - 10/06/2024 3:34 PM EDT Therapeutic decision making should be based on absolute values, rather than percentages. us Donnell Beverly MD LAB BLOOD ORDERABLES Lori l Result Performing Organization Address City/[facility]/ZIP Co de Phone Number [facility] [address] [place] [address] * Troponin now and 120 min (10/06/2024 3:16 PM EDT) Troponin T, High Sensitivity, 0 Hour 13 <19 ng/L 10/06/2024 3:57 PM EDT [facility] Blood Venous blood specimen / Unknown Venipuncture / Unknown 10/06/2024 3:16 PM EDT 10/06/2024 3:27 PM EDT us Donnell Beverly MD LAB BLOOD ORDERABLES Lori l Result [facility] [address] [place] [address] * BNP (10/06/2024 3:16 PM EDT) N-Terminal, PROBNP, Plasma <50 0 - 899 pg/mL 10/06/2024 3:57 PM EDT [facility] Blood Venous blood specimen / Unknown Venipuncture / Unknown 10/06/2024 3:16 PM EDT 10/06/2024 3:27 PM EDT us Donnell Beverly MD LAB BLOOD ORDERABLES Lori perez Result [facility] [address] [place] [address] * (ABNORMAL) Blood gas panel, venous (10/06/2024 3:16 PM EDT) pH, Venous 7.40 7.32 - 7.43 LAB HEMATOLOGY METHOD 10/06/2024 3:30 PM EDT [facility] pCO2, Venous 39(L) 40 - 55 mmHg LAB HEMATOLOGY METHOD 10/06/2024 3:30 PM EDT [facility] pO2, Venous 72(H) 25 - 40 mmHg LAB HEMATOLOGY METHOD 10/06/2024 3:30 PM EDT [facility] SO2, Measured, Venous 95(H) 65 - 80 % LAB HEMATOLOGY METHOD 10/06/2024 3:30 PM EDT [facility] Base Excess, Venous -0.6 -2.0 - 3.0 mmol/L LAB HEMATOLOGY METHOD 10/06/2024 3:30 PM EDT [facility] Bicarbonate, Calculated, Venous 24 22 - 26 mmol/L LAB HEMATOLOGY METHOD 10/06/2024 3:30 PM EDT [facility] Hematocrit, Whole Blood 49.1 40.0 - 51.0 % LAB HEMATOLOGY METHOD 10/06/2024 3:30 PM EDT [facility] Sodium, Whole Blood 132(L) 136 - 145 mmol/L LAB HEMATOLOGY METHOD 10/06/2024 3:30 PM EDT [facility] Potassium, Whole Blood 4.1 3.6 - 4.9 mmol/L LAB HEMATOLOGY METHOD 10/06/2024 3:30 PM EDT [facility] Chloride, Whole Blood 98 97 - 107 mmol/L LAB HEMATOLOGY METHOD 10/06/2024 3:30 PM EDT [facility] Glucose, Whole Blood 437(H) 74 - 99 mg/dL LAB HEMATOLOGY METHOD 10/06/2024 3:30 PM EDT [facility] Lactate, Venous, Whole Blood 2.4(H) 0.5 - 2.2 mmol/L LAB HEMATOLOGY METHOD 10/06/2024 3:30 PM EDT [facility] Ionized Calcium, Whole Blood 5.4(H) 4.6 - 5.1 mg/dL LAB HEMATOLOGY METHOD 10/06/2024 3:30 PM EDT [facility] Blood Venous blood specimen / Unknown Venipuncture / Unknown 10/06/2024 3:16 PM EDT 10/06/2024 3:28 PM EDT Donnell Beverly MD LAB BLOOD ORDERABLES Lori l Result [facility] [address] [place] [address] * Phosphorus (10/06/2024 3:16 PM EDT) Phosphorus, Plasma 4.1 2.5 - 4.5 mg/dL 10/06/2024 3:57 PM EDT [facility] Blood Venous blood specimen / Unknown Venipuncture / Unknown 10/06/2024 3:16 PM EDT 10/06/2024 3:27 PM EDT Donnell Beverly MD LAB BLOOD ORDERABLES Lori l Result Performing Organization Address City/[facility]/ZIP Co de Phone Number [facility] [address] [place] [address] * (ABNORMAL) Magnesium (10/06/2024 3:16 PM EDT) Magnesium, Plasma 1.8(L) 1.9 - 2.4 mg/dL 10/06/2024 3:57 PM EDT [facility] Blood Venous blood specimen / Unknown Venipuncture / Unknown 10/06/2024 3:16 PM EDT 10/06/2024 3:27 PM EDT Donnell Beverly MD LAB BLOOD ORDERABLES Lori l Result Performing Organization Address City/[facility]/ZIP Co de Phone Number [facility] [address] [place] [address] * (ABNORMAL) CMP (10/06/2024 3:16 PM EDT) Glucose, Plasma 446(H) 74 - 99 mg/dL 10/06/2024 3:57 PM EDT [facility] BUN, Plasma 15 8 - 23 mg/dL 10/06/2024 3:57 PM EDT [facility] Creatinine, Plasma 0.82 0.70 - 1.20 mg/dL 10/06/2024 3:57 PM EDT [facility] BUN/Creatinine Ratio 18 10/06/2024 3:57 PM EDT [facility] Sodium, Plasma 131(L) 136 - 145 mmol/L 10/06/2024 3:57 PM EDT [facility] Potassium, Plasma 4.3 3.6 - 4.9 mmol/L 10/06/2024 3:57 PM EDT [facility] Chloride, Plasma 95(L) 97 - 107 mmol/L 10/06/2024 3:57 PM EDT [facility] CO2, Plasma 21(L) 22 - 29 mmol/L 10/06/2024 3:57 PM EDT [facility] Anion Gap 15 6 - 16 mmol/L 10/06/2024 3:57 PM EDT [facility] Total Calcium, Plasma 10.4(H) 8.9 - 10.2 mg/dL 10/06/2024 3:57 PM EDT [facility] Total Protein 6.8 6.3 - 7.9 g/dL 10/06/2024 3:57 PM EDT [facility] Albumin, Plasma 4.1 3.5 - 5.2 g/dL 10/06/2024 3:57 PM EDT [facility] AST, Plasma 31 10 - 50 U/L 10/06/2024 3:57 PM EDT [facility] Comment:Hemolyzed, result ma y be falsely increased. ALT, Plasma 29 10 - 50 U/L 10/06/2024 3:57 PM EDT [facility] Alkaline Phosphatase, Plasma 99 40 - 115 U/L 10/06/2024 3:57 PM EDT [facility] Total Bilirubin, Plasma 0.4 0.2 - 1.1 mg/dL 10/06/2024 3:57 PM EDT [facility] eGFRcr 96.9 mL/min/1.7 3m*2 10/06/2024 3:57 PM EDT [facility] Comment:Reported eGFRcr in m L/min/1.73m2 is based the CKD-EPI 2020 equation that does not use a race coefficient. Blood Venous blood specimen / Unknown Venipuncture / Unknown 10/06/2024 3:16 PM EDT 10/06/2024 3:27 PM EDT Donnell Beverly MD LAB BLOOD ORDERABLES Lori perez Result [facility] [address] [place] [address] * XR Chest 1 View (10/06/2024 3:12 PM EDT) Anatomical Region Laterality Modality Chest Digital Radiogra phy Impressions 10/06/2024 3:55 PM EDT Mildly prominent mediastinum and right hilum with postsurgical changes CRITICAL RESULT: No. COMMUNICATION: Per this written report. Drafted by Benito Blair MD on 10/06/2024 3:52 PM Final report signed by Benito Blair MD on 10/06/2024 3:55 PM Narrative 10/06/2024 3:55 PM EDT CLINICAL INDICATION: CP TECHNIQUE: XR CHEST 1 VIEW COMPARISON: None. FINDINGS: Unremarkable heart size. Mild prominence of the mediastinum and right hilar region. No acute airspace opacity. Suture line present in the right perihilar area. No large pleural effusion, pneumothorax, or acute osseous finding. Procedure Note Benito Blair MD - 10/06/2024 CLINICAL INDICATION: CP TECHNIQUE: XR CHEST 1 VIEW COMPARISON: None. FINDINGS: Unremarkable heart size. Mild prominence of the mediastinum and righthilar region. No acute airspace opacity. Suture line present in the rightperihilar area. No large pleural effusion, pneumothorax, or acute osseousfinding. IMPRESSION: Mildly prominent mediastinum and right hilum with postsurgical changes CRITICAL RESULT: No. COMMUNICATION: Per this written report. Drafted by Benito Blair MD on 10/06/2024 3:52 PM Final report signed by Benito Blair MD on 10/06/2024 3:55 PM us Donnell Beverly MD IMG XR PROCEDURES Final R esult * Urine Gordon Panel (10/06/2024 3:06 PM EDT) Extra Reflex urine culture not indicated 10/07/2024 12:01 AM EDT [facility] Comment: Previously prelim verified as Specimen evaluation in progress on 10/06/2024 at 1701 EDT. Previously prelim verified as Specimen evaluation in progress on 10/06/2024 at 1801 EDT. Previously prelim verified as Specimen evaluation in progress on 10/06/2024 at 1901 EDT. Previously prelim verified as Specimen evaluation in progress on 10/06/2024 at 2001 EDT. Previously prelim verified as Specimen evaluation in progress on 10/06/2024 at 2101 EDT. Previously prelim verified as Specimen evaluation in progress on 10/06/2024 at 2201 EDT. Previously prelim verified as Specimen evaluation in progress on 10/06/2024 at 2301 EDT. Urine Urine specimen obtained by clean catch procedure / Unknown Non-blood Collection / Unknown 10/06/2024 3:06 PM EDT 10/06/2024 3:19 PM EDT us Donnell Beverly MD LAB URINE ORDERABLES Lori l Result [facility] [address] [place] [address] * (ABNORMAL) Urinalysis with reflex microscopic (Culture NOT Included) (10/06/2024 3:06 PM EDT) Color, Urine Yellow LAB URINALYSIS - AUTOMATED METHOD 10/06/2024 3:25 PM EDT [facility] Clarity, Urine Clear LAB URINALYSIS - AUTOMATED METHOD 10/06/2024 3:25 PM EDT [facility] Spec [place], Urine >1.030(H) 1.005 - 1.030 LAB URINALYSIS - AUTOMATED METHOD 10/06/2024 3:25 PM EDT [facility] pH, Urine 6.0 5.0 - 8.0 LAB URINALYSIS - AUTOMATED METHOD 10/06/2024 3:25 PM EDT [facility] Protein, Urine Negative Negative mg/dL LAB URINALYSIS - AUTOMATED METHOD 10/06/2024 3:25 PM EDT [facility] Glucose, Urine >=1000(A) Negative mg/dL LAB URINALYSIS - AUTOMATED METHOD 10/06/2024 3:25 PM EDT [facility] Ketones, Urine Negative Negative mg/dL LAB URINALYSIS - AUTOMATED METHOD 10/06/2024 3:25 PM EDT [facility] Blood, Urine Negative Negative LAB URINALYSIS - AUTOMATED METHOD 10/06/2024 3:25 PM EDT [facility] Bilirubin, Urine Negative Negative LAB URINALYSIS - AUTOMATED METHOD 10/06/2024 3:25 PM EDT [facility] Urobilinogen, Urine 0.2 0.2 to 1.0 mg/dL LAB URINALYSIS - AUTOMATED METHOD 10/06/2024 3:25 PM EDT [facility] Leukocytes, Urine Negative Negative LAB URINALYSIS - AUTOMATED METHOD 10/06/2024 3:25 PM EDT [facility] Nitrite, Urine Negative Negative LAB URINALYSIS - AUTOMATED METHOD 10/06/2024 3:25 PM EDT [facility] Urine Urine specimen obtained by clean catch procedure / Unknown Non-blood Collection / Unknown 10/06/2024 3:06 PM EDT 10/06/2024 3:19 PM EDT Donnell Beverly MD LAB URINE ORDERABLES Lori l Result [facility] [address] [place] [address] * (ABNORMAL) POCT glucose meter (10/06/2024 2:17 PM EDT) POCT Glucose 520(H) 74 - 99 mg/dL 10/06/2024 2:18 PM EDT [facility] Comment:Accuracy of a glucos e result obtained from a capillary whole blood specimen relies upon adequate, non-compromised capillary blood flow. If the capillary glucose result is not consistent with the patient's clinical signs and symptoms, glucose testing should be repeated with either an arterial or venous sample on the glucometer or sent to the main labortory for testing. Comment 10/06/2024 2:18 PM EDT [facility] Shop Laborer ID Paulina [email or web address] 10/06/2024 2:18 PM EDT [facility] Device ID [id number] 10/06/2024 2:18 PM EDT [facility] Specimen Type POC Capillary 10/06/2024 2:18 PM EDT [facility] Blood Capillary blood specimen / Unknown 10/06/2024 2:17 PM EDT 10/06/2024 2:18 PM EDT us Generic Provider Poct LAB POINT OF CARE TEST DOCKED DEVICE UNSOLICITED RESULTS Final Result Performing Organization Address City/[facility]/ZIP Co de Phone Number [facility] [address] [place] [address] * EKG now - STAT (adult) (10/06/2024 2:13 PM EDT) EKG DIAGNOSIS CLASS Abnormal MUSE ECG Ventricular Rate 77 BPM MUSE ECG Atrial Rate 77 BPM MUSE ECG IN Interval 176 ms MUSE ECG QRSD Interval 144 ms MUSE ECG QT Interval 428 ms MUSE ECG QTC Interval 484 ms MUSE ECG P Widen 27 degrees MUSE ECG R Widen -72 degrees MUSE ECG T Wave Widen 43 degrees MUSE ECG Diagnosis Sinus rhythm with premature atrial complexes MUSE ECG Diagnosis Left axis deviation MUSE ECG Diagnosis Right bundle branch block MUSE ECG Diagnosis Minimal voltage criteria for LVH, may be normal variant ( R in aVL ) MUSE ECG Diagnosis Cannot rule out Septal infarct , age undetermined MUSE ECG Diagnosis Abnormal ECG MUSE ECG Diagnosis MUSE ECG Diagnosis Confirmed by Albino Reveles ([id number]) on 10/07/2024 10:01:25 AM MUSE ECG 10/06/2024 2:13 PM EDT 10/07/2024 10:01 AM EDT Philippe Boo MD ECG ORDERABLES Final Result MUSE ECG documented in this encounter Visit Diagnoses Diagnosis Chest pain, unspecified type- Primary Pneumonia due to infectious organism, unspecified laterality, unspecified part of lung documented in this encounter Administered Medications Inactive Administered Medications - up to 3 most recent administrations Medication Order MAR Action Action Date Dose Rate Site iohexol (OMNIPaque) 350 MG/ML injection 100 mL 100 mL, Intravenous, Once in imaging, 1 dose, Starting on 10/06/24 at 1525, Until 10/06/24 at 1547, Routine, Imaging Protocol Orders Given 10/06/2024 3:47 PM EDT 100 mL ipratropium-albuterol (Duo-Neb) 0.5-2.5 mg/3 mL nebulizer solution 3 mL 3 mL, Nebulization, Once, 1 dose, On 10/06/24 at 1915, STAT Given 10/06/2024 7:19 PM EDT 3 mL lactated Ringer's infusion 500 mL 500 mL, Intravenous, Once (Bolus), 1 dose, On 10/06/24 at 1809, STAT New Bag 10/06/2024 6:49 PM EDT 500 mL documented in this encounter Active and Recently Administered Medications Times are shown in EDT. Scheduled Medication Order 10/04/2024 10/05/2024 10/06/2024 iohexol (OMNIPaque) 350 MG/ML injection 100 mL (COMPLETED) 100 mL, Intravenous, Once in imaging, 1 dose, Starting on 10/06/24 at 1525, Until 10/06/24 at 1547, Routine, Imaging Protocol Orders 1546 (Given - Provid er: Carmen Christian) ipratropium-albuterol (Duo-Neb) 0.5-2.5 mg/3 mL nebulizer solution 3 mL (COMPLETED) 3 mL, Nebulization, Once, 1 dose, On 10/06/24 at 1915, STAT 191 (Given - Provid er: Lex Quintanilla) lactated Ringer's infusion 500 mL (COMPLETED) 500 mL, Intravenous, Once (Bolus), 1 dose, On 10/06/24 at 1810, STAT 1848 (New Bag - Prov ider: Chente Sherman RN)2034 (Stopped - Provider: Alley Huitron) documented in this encounter Care Teams Prize Coordinator Relationship Specialty Start Date End Date Efrem Lauren DO [address] [place] [address] [place] [id number] PCP - General 10/06/24 documented as of this encounter
--- OUTSIDE RECORDS SUMMARY | 2024-11-01 14:51 | XMS_ITS | Clinical Summary ---
Author Organization [facility] Address [address] [place] [address] Phone Care Team Providers Care Rocket Motor Tester Name Role Phone Cornelia De Leon MD Conditions or Problems Problem Name Problem Code Onset Date Status Entry Date Provider Comment Standard Description Annotate *AFTERCARE FOLLOW SURGERY, NERVOUS SYSTEM NEC Z48.811 (ICD-10-CM) Active Cornelia De Leon MD Encounter for surgical aftercare following surgery on the nervous system RADICULOPATHY , LUMBAR REGION M54.16 (ICD-10-CM) Active Aakash Morfin Radiculopathy , lumbar region UNSPECIFIED PRE-OPERATIVE EXAMINATION 709768501 (SNOMED CT) Active Ritika Gonzalez History and physical examination for surgical clearance LUMBOSACRAL RADICULITIS [id number] (SNOMED CT) Active Cornelia De Leon MD Lumbosacral radiculitis OVERWEIGHT [id number] (SNOMED CT) Active Cornelia De Leon MD Overweight Medications Medication Instructions Start Date Stop Date Generic Name [facility] Provider HIBICLENS 4 % EXTERNAL LIQUID Wash the entire back and hip/buttock areas the night prior to the surgey CHLORHEXIDINE GLUCONATE [id number] Cornelia De Leon MD HIBICLEJUANITA 4 % EXTERNAL LIQUID Wash the entire back and hip/buttock areas the night prior to the surgey CHLORHEXIDINE GLUCONATE [id number] Cornelia De Leon MD ACCU-CHEK FASTCLIX LANCETS Non-Beaver LANCETS [id number] Cornelia De Leon MD LISINOPRIL 20 MG TABS 1 daily Non- LISINOPRIL [id number] Cornelia De Leon MD SILDENAFIL CITRATE 20 MG TABS 1 tid Non- SILDENAFIL CITRATE 51367913310 Cornelia De Leon MD TAMSULOSIN HCL 0.4 MG CAPS 1 qhs Non- TAMSULOSIN HCL 86515162882 Cornelia De Leon MD BREO ELLIPTA 100-25 MCG/ACT AEPB 1 daily Non- FLUTICASONE FUROATE-VILANTER OL [id number] Cornelia De Leon MD DILTIAZEM HCL ER COATED BEADS 120 MG [id number] 1 daily Non- DILTIAZEM HCL COATED BEADS [id number] Cornelia De Leon MD METOPROLOL SUCCINATE ER 100 MG [id number] 1 daily Non- METOPROLOL SUCCINATE 61243453358 Cornelia De Leon MD ATORVASTATIN CALCIUM 40 MG TABS 1 qhs Non- ATORVASTATIN CALCIUM 70131167818 Cornelia De Leon MD STRESS PLUS ZINC TABS 1 daily Non- B TCWOLBY-B-F-ZN [id number] Cornelia De Leon MD FENOFIBRATE MICRONIZED 134 MG CAPS 1 daily Non- FENOFIBRATE MICRONIZED 93981192700 Cornelia De Leon MD TIZANIDINE HCL 4 MG TABS 1 qhs - TIZANIDINE HCL 84244828168 Cornelia De Leon MD NORTRIPTYLINE HCL 25 MG CAPS 1 qhs Non- NORTRIPTYLINE HCL 73870986139 Cornelia De Leon MD CO Q 10 CAPS 1 daily Non- COENZYME Q10 CAPS 25659468143 Cornelia De Leon MD OXYCODONE-ACETAM INOPHEN 5-325 MG TABS 1 po q 6 hours Non- OXYCODONE-ACETAM INOPHEN 75569941819 Cornelia De Leon MD OMEPRAZOLE 40 MG CPDR 1 daily Non- OMEPRAZOLE [id number] Cornelia De Leon MD METFORMIN HCL ER 500 MG [id number] 1 daily Non- METFORMIN HCL 93060094589 Cornelia De Leon MD ASPIRIN ADULT LOW DOSE 81 MG TBEC 1 daily Non-Tellez ASPIRIN 84097588054 Cornelia De Leon MD FUROSEMIDE 40 MG TABS 1 daily Non-Tellez FUROSEMIDE 14115023477 Cornelia De Leon MD POTASSIUM CHLORIDE ZULEMA ER 20 MEQ CR-TABS 1 daily Non-Tellez POTASSIUM CHLORIDE ZULEMA CR 29646323686 Cornelia De Leon MD BACLOFEN TABS 1 tid Non-Tellez BACLOFEN TABS 13358518980 Cornelia De Leon MD Medications Administered No [...] Procedures Code Procedure Name Date Entry Date 99308 MRI Thoracic Spine 1 Vital Signs Date [...]
--- OUTSIDE RECORDS SUMMARY | 2024-11-01 14:51 | XMS_ITS | Encounter Summary ---
Author Organization [facility] Address [address] [place] [address] Care Team Providers Care Truck Operator Name Role Phone Efrem Lauren DO Primary Care Provider [phone] Encounter Details Date Type Department Care Team [...] on filedocumented in this encounter Care Teams Truck Operator Relationship Specialty Start Date End Date Efrem Lauren, [address] [place] [address] [place] [address] PCP - General 10/06/24 documented as of this encounter
--- OUTSIDE RECORDS SUMMARY | 2024-11-01 14:53 | XMS_ITS | Clinical Summary ---
Author Organization Healthcare Address [address] [place] [address] Care Team Providers Care Painter Supervisor Name Role Phone Efrem Lauren DO Primary Care Provider [phone] Allergies Active Allergy Reactions Criticality Noted Date [...] EDT Emergency [facility] Emergency Department [address] [place] [address] Philippe Bernal MD Chest pain, unspecified type [...] Health Maintenance Due Date Last Done Comments [facility]-Depression Screening 1958 [facility]-Diabetes: Hemoglobin A1C 1958 [facility]-Hepatitis C Screening 1958 [facility]Medicare Annual Wellness (AWV) 1958 [facility]-/Child/Adol SDOH Screenings 1958 [facility]-Obesity Intervention 1964 Diabetes: Dental Exam 1968 [facility]- SDOH Screenings 1976 [facility]-Adult SDOH Screenings 1976 CT Colonography 08/10/2003 Colonoscopy 08/10/2003 FIT-DNA 08/10/2003 FIT 08/10/2003 FOBT 08/10/2003 Sigmoidoscopy 08/10/2003 [facility]-Colorectal Cancer Screening 08/10/2003 [facility]-Zoster Vaccines (1 of 2) 2008 [facility]-RSV Vaccine: 60+ Years or (1 - Risk 60-74 years 1-dose series) 2018 [id number] Vaccine (1 - season) 2024 [facility]-Influenza Vaccine (#1) 10/08/202402/04, 11/01/2017, 03/25/2017, Additional history exists [facility]-DTaP,Tdap,and Td Vaccines (2 - Td or Tdap) 10/27/2031 10/26/2021 [facility]-Pneumococcal Vaccine: 50+ Years Completed 09/17/2022, 08/25/2014 [...] Comment 10/06/2024 6:50 PM EDT [facility] [place] ID Paulina Gaspar 10/06/2024 6:50 PM EDT HEALTHCARE LAB Device ID [id number] 10/06/2024 6:50 PM EDT [facility]ALTH[facility] Specimen Type POC Capillary 10/06/2024 6:50 PM EDT [facility] Blood Capillary blood specimen / Unknown 10/06/2024 6:49 PM EDT 10/06/2024 6:50 PM EDT Philippe Bernal MD LAB POINT OF CARE TE ST DOCKED DEVICE UNSOLICITED RESULTS Final Result Performing Organization Address City/[facility]/ZIP Co de Phone Number [facility] [address] [place] [address] * EKG now - STAT (adult) (10/06/2024 5:56 PM EDT) Only the most recent of2 resultswithin the time period is included. EKG DIAGNOSIS CLASS Abnormal MUSE ECG Ventricular Rate 72 BPM MUSE ECG Atrial Rate 72 BPM MUSE ECG AK Interval 170 ms MUSE ECG QRSD Interval 134 ms MUSE ECG QT Interval 460 ms MUSE ECG QTC Interval 503 ms MUSE ECG P Gepp 23 degrees MUSE ECG R Gepp -69 degrees MUSE ECG T Wave Gepp -3 degrees MUSE ECG Diagnosis Normal sinus rhythm MUSE ECG Diagnosis Left axis deviation MUSE ECG Diagnosis Right bundle branch block MUSE ECG Diagnosis Abnormal ECG MUSE ECG Diagnosis MUSE ECG Diagnosis Confirmed by Albino Reveles ([id number]) on 10/07/2024 10:14:31 AM MUSE ECG 10/06/2024 5:56 PM EDT 10/07/2024 10:14 AM EDT us Philippe Bernal MD ECG ORDERABLES Final Result Performing Organization Address [facility] Co de Phone Number MUSE ECG * Troponin T, High Sensitivity, 2 Hour, Plasma (10/06/2024 5:40 PM EDT) Pathologist [facility] [place] Troponin T, High Sensitivity, 2 Hour 12 <19 ng/L 10/06/2024 6:23 PM EDT [facility] Blood Venous blood specimen / Unknown Venipuncture / Unknown 10/06/2024 5:40 PM EDT 10/06/2024 5:54 PM EDT us Donnell Beverly MD LAB BLOOD ORDERABLES Lori l Result Performing Organization Address City/[facility]/ZIP Co de Phone Number [facility] [address] [place] [address] * Anti Xa Level Unfractionated Heparin (10/06/2024 4:17 PM EDT) Anti Xa Level Unfractionated Heparin <0.11 <1.00 IU/mL LAB COAGULATION METHOD 10/06/2024 4:53 PM EDT [facility] Blood Venous blood specimen / Unknown Venipuncture / Unknown 10/06/2024 4:17 PM EDT 10/06/2024 4:27 PM EDT Narrative [facility] - 10/06/2024 4:53 PM EDT Therapeutic Range: UFH Full Dose and ACS/VA protocols*: 0.30 - 0.70 IU/mL UFH Low Dose protocol*: 0.25 - 0.50 IU/mL UFH prophylaxis: Not established us Philippe Bernal MD LAB BLOOD ORDERABLES Final Res ult [facility] [address] [place] [address] * CT Angio Chest (10/06/2024 3:52 PM EDT) Anatomical Region Laterality Modality Chest Computed Tomogra phy Impressions 10/06/2024 4:43 PM EDT 1. No acute traumatic aortic injury. 2. No acute findings in the chest. 3. Lower lobe predominant cystic change probably represents bullae in the setting of mild emphysema, however cystic lung disease is also possible, in which case lymphocytic interstitial pneumonia or Nbcr-Mesi-Esnn syndrome are the most likely cause cysts [...] possible,in which case lymphocytic interstitial pneumonia or Przg-Wsxs-Shxlwmpwfger are the most likely cause cysts in [...] 13 <19 ng/L 10/06/2024 3:57 PM EDT [facility] Blood Venous blood specimen / Unknown Venipuncture / Unknown 10/06/2024 3:16 PM EDT 10/06/2024 3:27 PM EDT us Donnell Beverly MD LAB BLOOD ORDERABLES Lori l Result [facility] [address] [place] [address] * Beta-Hydroxybutyric Acid (10/06/2024 3:16 PM EDT) Beta-Hydroxybut yric Acid, Plasma 0.21 <=0.27 mmol/L 10/06/2024 4:19 PM EDT [facility] Blood Venous blood specimen / Unknown Venipuncture / Unknown 10/06/2024 3:16 PM EDT 10/06/2024 3:27 PM EDT Donnell Beverly MD LAB BLOOD ORDERABLES Lori l Result Performing Organization Address City/[facility]/ZIP Co de Phone Number [facility] [address] [place] [address] * BNP (10/06/2024 3:16 PM EDT) N-Terminal, PROBNP, Plasma <50 0 - 899 pg/mL 10/06/2024 3:57 PM EDT [facility] Blood Venous blood specimen / Unknown Venipuncture / Unknown 10/06/2024 3:16 PM EDT 10/06/2024 3:27 PM EDT Donnell Beverly MD LAB BLOOD ORDERABLES Lori l Result Performing Organization Address City/[facility] Co de Phone Number [facility] [address] [place] [address] * PT-INR (10/06/2024 3:16 PM EDT) Prothrombin Time 12.4 12.0 - 14.3 sec LAB COAGULATION METHOD 10/06/2024 3:53 PM EDT [facility] INR 0.9 0.9 - 1.1 LAB COAGULATION METHOD 10/06/2024 3:53 PM EDT [facility] Blood Venous blood specimen / Unknown Venipuncture / Unknown 10/06/2024 3:16 PM EDT 10/06/2024 3:26 PM EDT Narrative [facility] - 10/06/2024 3:53 PM EDT OPTIMAL INR RANGES FOR PATIENT ON ORAL ANTICOAGULANT THERAPY Prevention of venous thromboembolism INR 2.0 to 3.0 In patients with heart disease: Atrial fibrillation INR 2.0 to 3.0 Valvular heart disease INR 2.0 to 3.0 Tissue heart valves INR 2.0 to 3.0 Mechanical prosthetic valves INR 2.5 to 3.5 Prevention of recurrent VA INR 2.5 to 3.5 us Donnell Beverly MD LAB BLOOD ORDERABLES Lori perez Result [facility] [address] [place] [address] * (ABNORMAL) CBC w/diff (10/06/2024 3:16 PM EDT) WBC Count 10.86(H) 3.70 - 10.30 10*3/uL LAB HEMATOLOGY METHOD 10/06/2024 3:34 PM EDT [facility] RBC Count 5.08 4.60 - 6.10 10*6/uL LAB HEMATOLOGY METHOD 10/06/2024 3:34 PM EDT [facility] HGB 15.9 13.7 - 17.5 g/dL LAB HEMATOLOGY METHOD 10/06/2024 3:34 PM EDT [facility] HCT 44.4 40.0 - 51.0 % LAB HEMATOLOGY METHOD 10/06/2024 3:34 PM EDT [facility] Platelet Count 217 155 - 369 10*3/uL LAB HEMATOLOGY METHOD 10/06/2024 3:34 PM EDT [facility] MCV 87 79 - 98 fL LAB HEMATOLOGY METHOD 10/06/2024 3:34 PM EDT [facility] MCH 31.3 26.0 - 32.0 pg LAB HEMATOLOGY METHOD 10/06/2024 3:34 PM EDT [facility] MCHC 35.8(H) 30.7 - 35.5 g/dL LAB HEMATOLOGY METHOD 10/06/2024 3:34 PM EDT [facility] RDW 12.4 11.5 - 14.5 % LAB HEMATOLOGY METHOD 10/06/2024 3:34 PM EDT [facility] MPV 10.4 8.8 - 12.5 fL LAB HEMATOLOGY METHOD 10/06/2024 3:34 PM EDT [facility] nRBC 0.0 <=0.0 per 100 WBCs LAB HEMATOLOGY METHOD 10/06/2024 3:34 PM EDT [facility] Differential Type Automated LAB HEMATOLOGY METHOD 10/06/2024 3:34 PM EDT [facility] Neutrophils % 48 % LAB HEMATOLOGY METHOD 10/06/2024 3:34 PM EDT [facility] Lymphocytes % 41 % LAB HEMATOLOGY METHOD 10/06/2024 3:34 PM EDT [facility] Monocytes % 8 % LAB HEMATOLOGY METHOD 10/06/2024 3:34 PM EDT [facility] Eosinophils % 1 % LAB HEMATOLOGY METHOD 10/06/2024 3:34 PM EDT [facility] Basophils % 1 % LAB HEMATOLOGY METHOD 10/06/2024 3:34 PM EDT [facility] Immature Granulocytes % 1 % LAB HEMATOLOGY METHOD 10/06/2024 3:34 PM EDT [facility] Neutrophils Absolute 5.30 1.60 - 6.10 10*3/uL LAB HEMATOLOGY METHOD 10/06/2024 3:34 PM EDT [facility] Lymphocytes Absolute 4.49(H) 1.20 - 3.90 10*3/uL LAB HEMATOLOGY METHOD 10/06/2024 3:34 PM EDT [facility] Monocytes Absolute 0.81 0.30 - 0.90 10*3/uL LAB HEMATOLOGY METHOD 10/06/2024 3:34 PM EDT [facility] Eosinophils Absolute 0.15 0.00 - 0.50 10*3/uL LAB HEMATOLOGY METHOD 10/06/2024 3:34 PM EDT [facility] Basophils Absolute 0.06 0.00 - 0.10 10*3/uL LAB HEMATOLOGY METHOD 10/06/2024 3:34 PM EDT [facility] Immature Granulocytes Absolute 0.05 0.00 - 0.06 10*3/uL LAB HEMATOLOGY METHOD 10/06/2024 3:34 PM EDT [facility] Blood Venous blood specimen / Unknown Venipuncture / Unknown 10/06/2024 3:16 PM EDT 10/06/2024 3:27 PM EDT [facility] - 10/06/2024 3:34 PM EDT Therapeutic decision making should be based on absolute values, rather than percentages. us Donnell Beverly MD LAB BLOOD ORDERABLES Lori perez Result [facility] [address] [place] [address] * Phosphorus (10/06/2024 3:16 PM EDT) Pathologist [facility] [place] Phosphorus, Plasma 4.1 2.5 - 4.5 mg/dL 10/06/2024 3:57 PM EDT [facility] Blood Venous blood specimen / Unknown Venipuncture / Unknown 10/06/2024 3:16 PM EDT 10/06/2024 3:27 PM EDT Donnell Beverly MD LAB BLOOD ORDERABLES Lori l Result [facility] [address] [place] [address] * (ABNORMAL) Magnesium (10/06/2024 3:16 PM EDT) [facility] Magnesium, Plasma 1.8(L) 1.9 - 2.4 mg/dL 10/06/2024 3:57 PM EDT [facility] Blood Venous blood specimen / Unknown Venipuncture / Unknown 10/06/2024 3:16 PM EDT 10/06/2024 3:27 PM EDT us Donnell Beverly MD LAB BLOOD ORDERABLES Lori l Result [facility] [address] [place] [address] * (ABNORMAL) Blood gas panel, venous (10/06/2024 3:16 PM EDT) [facility] pH, Venous 7.40 7.32 - 7.43 LAB HEMATOLOGY METHOD 10/06/2024 3:30 PM EDT [facility] pCO2, Venous 39(L) 40 - 55 mmHg LAB HEMATOLOGY METHOD 10/06/2024 3:30 PM EDT [facility] pO2, Venous 72(H) 25 - 40 mmHg LAB HEMATOLOGY METHOD 10/06/2024 3:30 PM EDT [facility] SO2, Measured, Venous 95(H) 65 - 80 % LAB HEMATOLOGY METHOD 10/06/2024 3:30 PM EDT [facility] Base Excess, Venous -0.6 -2.0 - 3.0 mmol/L LAB HEMATOLOGY METHOD 10/06/2024 3:30 PM EDT [facility] Bicarbonate, Calculated, Venous 24 22 - 26 mmol/L LAB HEMATOLOGY METHOD 10/06/2024 3:30 PM EDT [facility] Hematocrit, Whole Blood 49.1 40.0 - 51.0 % LAB HEMATOLOGY METHOD 10/06/2024 3:30 PM EDT [facility] Sodium, Whole Blood 132(L) 136 - 145 mmol/L LAB HEMATOLOGY METHOD 10/06/2024 3:30 PM EDT [facility] Potassium, Whole Blood 4.1 3.6 - 4.9 mmol/L LAB HEMATOLOGY METHOD 10/06/2024 3:30 PM EDT [facility] Chloride, Whole Blood 98 97 - 107 mmol/L LAB HEMATOLOGY METHOD 10/06/2024 3:30 PM EDT [facility] Glucose, Whole Blood 437(H) 74 - 99 mg/dL LAB HEMATOLOGY METHOD 10/06/2024 3:30 PM EDT [facility] Lactate, Venous, Whole Blood 2.4(H) 0.5 - 2.2 mmol/L LAB HEMATOLOGY METHOD 10/06/2024 3:30 PM EDT [facility] Ionized Calcium, Whole Blood 5.4(H) 4.6 - 5.1 mg/dL LAB HEMATOLOGY METHOD 10/06/2024 3:30 PM EDT [facility] Blood Venous blood specimen / Unknown Venipuncture / Unknown 10/06/2024 3:16 PM EDT 10/06/2024 3:28 PM EDT us Donnell Beverly MD LAB BLOOD ORDERABLES Lori l Result [facility] [address] [place] [address] * (ABNORMAL) CMP (10/06/2024 3:16 PM EDT) Glucose, Plasma 446(H) 74 - 99 mg/dL 10/06/2024 3:57 PM EDT [facility] BUN, Plasma 15 8 - 23 mg/dL 10/06/2024 3:57 PM EDT [facility] Creatinine, Plasma 0.82 0.70 - 1.20 mg/dL 10/06/2024 3:57 PM EDT [facility] BUN/Creatinine Ratio 18 10/06/2024 3:57 PM EDT [facility] Sodium, Plasma 131(L) 136 - 145 mmol/L 10/06/2024 3:57 PM EDT [facility] Potassium, Plasma 4.3 3.6 - 4.9 mmol/L 10/06/2024 3:57 PM EDT [facility] Chloride, Plasma 95(L) 97 - 107 mmol/L 10/06/2024 3:57 PM EDT [facility] CO2, Plasma 21(L) 22 - 29 mmol/L 10/06/2024 3:57 PM EDT [facility] Anion Gap 15 6 - 16 mmol/L 10/06/2024 3:57 PM EDT [facility] Total Calcium, Plasma 10.4(H) 8.9 - 10.2 mg/dL 10/06/2024 3:57 PM EDT [facility] Total Protein 6.8 6.3 - 7.9 g/dL 10/06/2024 3:57 PM EDT [facility] Albumin, Plasma 4.1 3.5 - 5.2 g/dL 10/06/2024 3:57 PM EDT [facility] AST, Plasma 31 10 - 50 U/L 10/06/2024 3:57 PM EDT [facility] Comment:Hemolyzed, result ma y be falsely increased. ALT, Plasma 29 10 - 50 U/L 10/06/2024 3:57 PM EDT [facility] Alkaline Phosphatase, Plasma 99 40 - 115 U/L 10/06/2024 3:57 PM EDT [facility] Total Bilirubin, Plasma 0.4 0.2 - 1.1 mg/dL 10/06/2024 3:57 PM EDT [facility] eGFRcr 96.9 mL/min/1.7 3m*2 10/06/2024 3:57 PM EDT [facility] Comment:Reported eGFRcr in m L/min/1.73m2 is based the CKD-EPI 2020 equation that does not use a race coefficient. Blood Venous blood specimen / Unknown Venipuncture / Unknown 10/06/2024 3:16 PM EDT 10/06/2024 3:27 PM EDT us Donnell Beverly MD LAB BLOOD ORDERABLES Lori perez Result [facility] [address] [place] [address] * XR Chest 1 View (10/06/2024 3:12 [...] culture not indicated 10/07/2024 12:01 AM EDT [facility] Comment: Previously prelim verified as [...] MD LAB URINE ORDERABLES Lori perez Result [facility] [address] [place] [address] * (ABNORMAL) Urinalysis with reflex microscopic (Culture NOT Included) (10/06/2024 3:06 PM EDT) Color, Urine Yellow LAB URINALYSIS - AUTOMATED METHOD 10/06/2024 3:25 PM EDT [facility] Clarity, Urine Clear LAB URINALYSIS - AUTOMATED METHOD 10/06/2024 3:25 PM EDT [facility] Spec [place], Urine >1.030(H) 1.005 - 1.030 LAB URINALYSIS - AUTOMATED METHOD 10/06/2024 3:25 PM EDT [facility] pH, Urine 6.0 5.0 - 8.0 LAB URINALYSIS - AUTOMATED METHOD 10/06/2024 3:25 PM EDT [facility] Protein, Urine Negative Negative mg/dL LAB URINALYSIS - AUTOMATED METHOD 10/06/2024 3:25 PM EDT [facility] Glucose, Urine >=1000(A) Negative mg/dL LAB URINALYSIS - AUTOMATED METHOD 10/06/2024 3:25 PM EDT [facility] Ketones, Urine Negative Negative mg/dL LAB URINALYSIS - AUTOMATED METHOD 10/06/2024 3:25 PM EDT [facility] Blood, Urine Negative Negative LAB URINALYSIS - AUTOMATED METHOD 10/06/2024 3:25 PM EDT [facility] Bilirubin, Urine Negative Negative LAB URINALYSIS - AUTOMATED METHOD 10/06/2024 3:25 PM EDT [facility] Urobilinogen, Urine 0.2 0.2 to 1.0 mg/dL LAB URINALYSIS - AUTOMATED METHOD 10/06/2024 3:25 PM EDT [facility] Leukocytes, Urine Negative Negative LAB URINALYSIS - AUTOMATED METHOD 10/06/2024 3:25 PM EDT [facility] Nitrite, Urine Negative Negative LAB URINALYSIS - AUTOMATED METHOD 10/06/2024 3:25 PM EDT [facility] Urine Urine specimen obtained by clean catch procedure / Unknown Non-blood Collection / Unknown 10/06/2024 3:06 PM EDT 10/06/2024 3:19 PM EDT us Donnell Beverly MD LAB URINE ORDERABLES Lori perez Result [facility] [address] [place] [address] from Last 3 Months Insurance [facility] MEDICARE Care Teams Painter Supervisor Relationship Specialty Start Date End Date Efrem Lauren DO [address] [place] [address] [place] [id number] PCP - General 10/06/24
--- OUTSIDE RECORDS SUMMARY | 2024-11-01 14:53 | XMS_ITS | Clinical Summary ---
Author Organization [facility] Address [address] [place] [address] Phone Care Team Providers Care Manual Lathe Machinist Name Role Phone Mila Lange MD Primary Care Provider [phone] Allergies Active Allergy Reactions Criticality Noted Date Comments Gabapentin Swelling 05/02/2022 [id number] Antimigraine Agents Other (See Comments) 01/19/2024 Contraindicated [...] 01/15/20 Active nalOXone (NARCAN) 4 mg/actuation Nasl Goehner, Non-Aerosol 0.1 mL by Nasal route as [...] (Inject under the skin) 46 Units nightly. Latham too please. May increase 2 units per day until fasting blood sugar is 80-110. Max potential is 100 units 18 mL 3 01/25/20 Active Additional Information Patient taking differently: 36 UnitsSubcutaneous NIGHTLY, Latham too please. May increase 2 units per [...] 2 03/23/19 25 Active DEXCOM G7 SENSOR [facility] DeviceIndicatio ns:Type 2 diabetes mellitus with hyperglycemia, without long-term current use of insulin ([facility]) 1 Each by [facility].(Non-Drug; Combo Route) route every [...] 04/25/19 25 Active ACCU-CHEK GUIDE TEST STRIPS [facility] StripIndication s:Type 2 diabetes mellitus without complication, without long-term current use of insulin ([facility]) TEST BLOOD SUGAR TWICE DAILY 100 Strip 04/26/19 25 Active ACCU-CHEK SOFTCLIX LANCETS [facility] USE TO TEST BLOOD SUGAR TWICE DAILY [...] migh t be different from the original. [facility] - Dr. Epps Interventional Pain Protocol: SNC Appt 05/02/24, NS Appt 03/28/24, 06/06/24 Moshe report completed (EVERY 3 MONTHS) (06/06/2024 ) Pharmacy: [facility] [place] [address] - [address] 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 History of pneumothorax 09/04/2014 Overview (09/04/2014): 08/2014 [...] (02/02/2024 12:58 PM EST): 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 treatment [employer]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 Tobacco use Assessment & Plan (02/02/2024 12:58 [...] Department Care Team Description 09/18/2024 Patient Outreach [facility] [address] [place] [address] Marilynn Bates [facility] Medication Management from Last 3 Months [...] INTERVENTION(PCI) 07/31/2021 N/A CORONARY PERCUTANEOUS INTERVENTION (PCI) [[id number]]; Surgeon: Chaz Moya MD; Location: [facility]; Service: Cardiac Medical devices from this [...] COPD (chronic obstructive pu lmonary disease) ([facility]) inhalers. O2 @ 2l/nc @ HS [...] pt reports drinking 4 shots of whiskey [employer] [facility] Utilities Answer Date Recorded In the past 12 months has e electric, gas, oil, or water [employer] threatened to shut off services in your home? No 05/11/2024 Overall Financial Resource Strain (CARDIA) Answe r Date Recorded How hard is it for you to pa y for the very basics like food, housing, medical care, and heating? Not very hard 05/11/2024 PHQ-2 Answer Date Recorded PHQ-2 Total Score 0 05/11/2024 [facility] - Occupational Stress Questionnaire Answer Date Recorded [...] things needed for daily living? No 01/12/2023 [facility] IP Transportation Answer D ate Recorded In [...] 05/24/2024 1:28 PM EDT Plan of Treatment Upcoming Encounters Date Type Department Care Team (Late st Contact Info) Description 11/02/2024 10:00 AM EDT Office Visit [facility] [address] [place], [place] [id number] Mila Lange MD [address] [place] [address] Health Maintenance Due Date Last Done Comments [...] Lange MD Medical Devices Implanted Type Area Tape Deck Installer Device Identifier Shelf Expiration Date Model / Serial / Lot Kit Lead Surgical Artisan 2 X 8 70cm - [id number] Implanted:Qty: 1 on 09/08/2016 by Cornelia De Leon MD at [facility] N/A: Spine Thoracic [employer]NEUROMOD[employer]A TION 05/08/2018 [id number] / [id number] / [id number] 3 Kitgenerator Pulse Implantable Mri Montage Precision - [id number] Implanted:Qty: 1 on 09/08/2016 by Cornelia De Leon MD at [facility] N/A: Back [employer]NEUR[employer] 08/04/2018 [id number] / [id number] / [id number] 3.5mm X 32mm Synergy Stent - [id number] Implanted:Qty: 1 on 07/31/2021 by Chaz Moya MD at [facility] N/A: LAD [employer]:CARDIAC RHYTHM MGMT [id number] 09/12/2021 [id number] / / [id number] 3.0mm X 20mm Synergy Stent - [id number] Implanted:Qty: 1 on 07/31/2021 by Chaz Moya MD at [facility] N/A: Ramus [employer]CARDIAC RHY[employer]M MGMT [id number] 06/17/2022 [id number] / / [id number] Procedures Procedure Name Priority Date/Time Associated Diagnosis [...] 2 diabetes mellitus without complication, unspecified whether prison insulin use (HCC) ACUTE HEPATITIS PANEL Routine [...] - 145 mmol/L 05/13/2024 6:43 AM EDT [facility] Potassium 3.7 3.5 - 5.0 mmol/L 05/13/2024 6:43 AM EDT [facility] Chloride 108(H) 98 - 107 mmol/L 05/13/2024 6:43 AM EDT [facility] Total CO2 23 22 - 29 mmol/L 05/13/2024 6:43 AM EDT [facility] Anion Gap 9 7 - 16 mmol/L 05/13/2024 6:43 AM EDT [facility] Calcium 8.6(L) 8.8 - 10.4 mg/dL 05/13/2024 6:43 AM EDT [facility] Glucose Lvl 94 70 - 99 mg/dL 05/13/2024 6:43 AM EDT [facility] BUN 8 8 - 23 mg/dL 05/13/2024 6:43 AM EDT [facility] Creatinine 0.68 0.67 - 1.30 mg/dL 05/13/2024 6:43 AM EDT [facility] eGFR (CKD-EPIcr 2020) 103 >=60 mL/min/1.7 3 m2 05/13/2024 6:43 AM EDT [facility] Comment:Estimated GFR was ca lculated using the CKD-EPIcr (2020) equation refit without race. The equation is recommended by the National Kidney Foundation - [place] [employer] of Nephrology Task Force. Blood VENOUS BLOOD / Unknown Venipuncture / Unknown 05/13/2024 5:28 AM EDT 05/13/2024 6:15 AM EDT us Mami Ulloa MD CHEMISTRY ORDERABLES Final Resul t [facility] [address] [place] [address] * CT ANGIOGRAM CHEST ABDOMEN W CONTRAST [...] - 5.6 % 04/10/2024 10:14 PM EST Urgent Group Est. Avg Glucose 160 mg/dL 04/10/2024 10:14 PM EST [facility] Blood VENOUS BLOOD / Unknown Venipuncture / Unknown 04/10/2024 1:37 PM EST 04/10/2024 1:37 PM EST Narrative PREFERRED [facility] - 04/10/2024 10:14 PM EST REFERENCE RANGE: Normal: 4.0-5.6% Pre-diabetes: 5.7-6.4% Provisional diagnosis of diabetes: >6.4% Hgb F>10% and anything which shortens red cell survival, such as hemolytic anemia, or unstable hemoglobin variants such as HbSS, HbSC, or HbCC, will lower the HbA1c value associated with a given level of glycemic control. us Mila Lange MD CHEMISTRY ORDERABLES Final Res ult Urgent Group [address] [place] [address] [facility] [address] [place] [address] * (ABNORMAL) LIPID SCREEN (04/10/2024 1:37 PM EST) Cholesterol 165 <200 mg/dL 04/10/2024 9:07 PM EST Urgent Group Comment: < 200 Desirable 200 - 239 Borderline High >= 240 High Triglyceride 165(H) <150 mg/dL 04/10/2024 9:07 PM EST Urgent Group Comment: < 150 Normal 150 - 199 Borderline High 200 - 499 High >= 500 Very High HDL 41 >=40 mg/dL 04/10/2024 9:07 PM EST Urgent Group Comment: > 60 Optimal 40 - 60 Acceptable < 40 Low LDL Calculated 95 <100 mg/dL 04/10/2024 9:07 PM EST [employer] [facility] Comment: < 100 Optimal 100 - 129 Near or above optimal 130 - 159 Borderline High 160 - 189 High >= 190 Very High The National Institutes of Health (NIH) equation is used for all lipid panels that report calculated LDL (LDL-C). Non-HDL-C Calculated 124 <=129 mg/dL 04/10/2024 9:07 PM EST [facility], [facility] Comment: <130 Desirable 130-159 Above Desirable 160-189 Borderline High 190-219 High >= 220 Very High Fasting Specimen? Yes None 025 9:07 PM EST [facility] Blood VENOUS BLOOD / Unknown Venipuncture / Unknown 04/10/2024 1:37 PM EST 04/10/2024 1:37 PM EST us Mila Lange MD CHEMISTRY ORDERABLES Final Res ult [facility] [address] [facility] [place] [address] [facility] [address] [place] [address] * MICROALBUMIN/CREATININE RATIO URINE (01/19/2024 3:09 PM EST) Urine Microalb <12.0 mg/L 01/19/2024 8:46 PM EST [facility], [facility] Urine Creatinine 45.1 mg/dL 01/19/20 24 8:46 PM EST [facility], [facility] Ur Microalb/Creat 024 8:46 PM EST [facility] Comment: Because the albumin level [...] URINE ORDERABLES Final Result Performing Organization Address City/[facility]/ZIP Co de Phone Number PREFERRED LAB [employer], [address] [place] [address] * ACUTE HEPATITIS PANEL (04/10/2019 [...] ORDERABLES Final Res ult Performing Organization Address City/[facility]/ZIP Co de Phone Number PREFERRED LAB [employer], [address] , [place] [address] * DIABETES EYE EXAM (09/18/2018) Historical Provider HEALTH MAINTENANCE Final Res ult Performing Organization Address [facility] Co de Phone Number SEP OFFICE from Last 3 Months or Most Recently Relevant to Health Maintenance Insurance [facility] FRANNIE [place] MR FRANNIE [place] MR Advance Directives For more information, please contact: [phone] * Full Code (Latest Code Status on [...] 5:12 AM 02/16/2024 11:29 PM Care Teams Manual Lathe Machinist Relationship Specialty Start Date End Date Mila Lange MD [address] [place] [address] PCP - General Family Medicine 06/22/11
--- OUTSIDE RECORDS SUMMARY | 2024-11-01 15:52 | XMS_ITS | CCD ---
Author Organization Unknown Care Team Providers Care Senior Technical Business Analyst Name Role Phone Unavailable Primary Care Provider Unavailabl e Unavailable Chronic Care Management Unavaila ble Summary Purpose DataExchange Insurance Providers Payer name Policy type / Coverage type Covered alliance party ID Effective Begin Date Effective End Date [facility] [id number] Unknown Unknown Family History Family History data not found Medication Administered No Medication Administered data Reason For Visit No Reason For Visit data Medical Equipment No Medical Equipment data Advance Directives No Advance Directive data
--- OUTSIDE RECORDS SUMMARY | 2024-11-01 15:52 | XMS_ITS | CCD ---
Author Organization Unknown Care Team Providers Care Retail Sales Vitamin Consultant Name Role Phone Unavailable Primary Care Provider Unavailabl e Unavailable Chronic Care Management Unavaila ble Summary Purpose DataExchange Insurance Providers Payer name Policy type / Coverage type Covered republican ID Effective Begin Date Effective End Date [facility] [id number] Unknown Unknown Family History Family History data not found Medication Administered No Medication Administered data Reason For Visit No Reason For Visit data Medical Equipment No Medical Equipment data Advance Directives No Advance Directive data
[2024-11-02 13:26] LABS: Antinuclear Antibodies (ANA) Negative (Negative)
== END 2024-11-01 23:59 | disposition home or self-care (01) ==
LOC: LAB 14:23
PROVIDERS: PCP Internal Medicine; Visit Provider Internal Medicine Pulmonary Disease
DX: J43.9 Emphysema, unspecified (principal); J84.9 Interstitial pulmonary disease, unspecified
CPT/HCPCS: 36415; 82103; 82104

== ENCOUNTER 2024-12-06 19:27 | Emergency (ER) | payer MEDICARE, SELFPAY ==
--- OUTSIDE RECORDS SUMMARY | 2024-10-06 14:02 | XMS_ITS | Encounter Summary ---
Author Organization [facility] Address [address] [place] [address] Care Team Providers Care Hydrodynamics Professor Name Role Phone Efrem Lauren DO Primary Care Provider [phone] Reason for Visit * Reason Comments Chest Pain Encounter Details Date Type Department Care Team ([facility] st Contact Info) Description 10/06/2024 2:02 PM EDT - 10/06/2024 8:35 PM EDT Emergency [facility] A Emergency Department [address] [place] [address] Philippe Boo MD [address] [place] [address] Chest pain, unspecified type (Primary [...] MD - 10/06/2024 8:17 PM EDT Please lease picker your prescriptions and take first dose [...] HLD, use who initially presented to the [facility] with a chief complaint of chest [...] heart attacks. He had stents placed in [place] 6 weeks ago. Prior to that his [...] Family History Reviewed and non-contributory. Father 4-5 TN's and CVA. Over 60 with TN's. Social History Tobacco use: 50+ years 1 [...] in which case lymphocytic interstitial pneumonia or Sykb-Pnfy-Wfjp syndrome are the most likely cause cysts in this distribution. ASSESSMENT/PLAN Tashi Martin is a 64 y.o. male who initially presented to the [facility] for chest pain, and Cardiology is [...] ago where he required multiple stents at [facility]. He mentions this was an elective [...] by the attending physician.Please page the on-call cotton factor ([id number]) with any further questions. I spent 30 [...] 64 y.o male with a PMH of TN w/ stent placement x7, T2DM, COPD, diastolic HF who presented to the ED with chest pain of 2 hours that began suddenly, is diffuse but localized more to the right but has some radiation to the left shoulder and jaw. The patient states this pain does not feel like his prior TN. He states subjective SOA but is oxygenating [...] time. Psychiatric: Mood and Affect: Mood normal. Chelsey Coma Scale Score: 15 HEART Score: 7 ED Course & MDM - Assessment: 64 y.o. male presents to ED with complaint of chest pain. It should be noted that the chronic conditions includes TN w/ stent placement x7, T2DM, COPD, diastolic [...] in which case lymphocytic interstitial pneumonia or Fhap-Cpwg-Yoez syndrome are the most likely cause cysts [...] Boswell MD Clinical Impressions as of 10/06/24 2310 Chest pain, unspecified type Pneumonia due to [...] 10/11/2024 Carl Boswell MD Discharge Instructions Please lease picker your prescriptions and take first dose of antibiotics tonight. Take all antibiotics as prescribed. Use all inhalers as prescribed. Please return to ED if your symptoms worsen, change in location, change in severity, new symptoms develop or if you become concerned for your health. Disposition Discharge AVS (Egyptian Snapshot) - Printed 10/06/2024 [1] No past medical history on file. [2] No past surgical history on file. [3] No family history on file. [4] [5] Allergies Allergen Reactions Gabapentin Swelling Wasp Venom Protein Anaphylaxis Carl Boswell MD Resident 10/06/24 8025 Cosigned by Philippe Boo MD at 10/07/2024 [...] for CP that started about 2 hours ORGAN BUILDER, worse after eating. SL 0.4mg Nitroglycerin administered without relief. 324mg ASA administered Per EMS ORGAN BUILDER. HX of previous TN with stents placed documented in this encounter [...] Comment 10/06/2024 6:50 PM EDT [facility] Soaker Hides ID Paulina Gaspar 10/06/2024 6:50 PM EDT [facility] Device ID [id number] 10/06/2024 6:50 PM EDT [facility] Specimen Type POC Capillary 10/06/2024 6:50 PM EDT [facility] Blood Capillary blood specimen / Unknown 10/06/2024 6:49 PM EDT 10/06/2024 6:50 PM EDT Philippe Boo MD LAB POINT OF CARE TE ST DOCKED DEVICE UNSOLICITED RESULTS Final Result [facility] [address] [place] [address] * EKG now - STAT (adult) (10/06/2024 5:56 PM EDT) EKG DIAGNOSIS CLASS Abnormal MUSE ECG Ventricular Rate 72 BPM MUSE ECG Atrial Rate 72 BPM MUSE ECG WV Interval 170 ms MUSE ECG QRSD Interval 134 ms MUSE ECG QT Interval 460 ms MUSE ECG QTC Interval 503 ms MUSE ECG P [place] 23 degrees MUSE ECG R [place] -69 degrees MUSE ECG T Wave [place] -3 degrees MUSE ECG Diagnosis Normal sinus rhythm MUSE ECG Diagnosis Left axis deviation MUSE ECG Diagnosis Right bundle branch block MUSE ECG Diagnosis Abnormal ECG MUSE ECG Diagnosis MUSE ECG Diagnosis Confirmed by Albino Reveles ([id number]) on 10/07/2024 10:14:31 AM MUSE ECG 10/06/2024 5:56 PM EDT 10/07/2024 10:14 AM EDT Philippe Boo MD ECG ORDERABLES Final Result MUSE ECG * Troponin T, High Sensitivity, 2 Hour, Plasma (10/06/2024 5:40 PM EDT) Pathologist [facility] [place] Troponin T, High Sensitivity, 2 Hour 12 <19 ng/L 10/06/2024 6:23 PM EDT [facility] Blood Venous blood specimen / Unknown Venipuncture / Unknown 10/06/2024 5:40 PM EDT 10/06/2024 5:54 PM EDT Donnell Beverly MD LAB BLOOD ORDERABLES Lori l Result [facility] [address] [place] [address] * Anti Xa Level Unfractionated Heparin (10/06/2024 4:17 PM EDT) Anti Xa Level Unfractionated Heparin <0.11 <1.00 IU/mL LAB COAGULATION METHOD 10/06/2024 4:53 PM EDT [facility] Blood Venous blood specimen / Unknown Venipuncture / Unknown 10/06/2024 4:17 PM EDT 10/06/2024 4:27 PM EDT Narrative [facility] - 10/06/2024 4:53 PM EDT Therapeutic Range: UFH Full Dose and ACS/TN protocols*: 0.30 - 0.70 IU/mL UFH Low Dose protocol*: 0.25 - 0.50 IU/mL UFH prophylaxis: Not established us Philippe Boo MD LAB BLOOD ORDERABLES Final Res ult [facility] [address] [place] [address] * CT Angio Chest (10/06/2024 3:52 PM EDT) Anatomical Region Laterality Modality Chest Computed Tomogra phy Impressions 10/06/2024 4:43 PM EDT 1. No acute traumatic aortic injury. 2. No acute findings in the chest. 3. Lower lobe predominant cystic change probably represents bullae in the setting of mild emphysema, however cystic lung disease is also possible, in which case lymphocytic interstitial pneumonia or Eicn-Sanr-Jorg syndrome are the most likely cause cysts [...] possible,in which case lymphocytic interstitial pneumonia or Sxqb-Uyma-Vinzqsaaussy are the most likely cause cysts in [...] 0.21 <=0.27 mmol/L 10/06/2024 4:19 PM EDT [facility] Blood Venous blood specimen / Unknown Venipuncture / Unknown 10/06/2024 3:16 PM EDT 10/06/2024 3:27 PM EDT us Donnell Beverly MD LAB BLOOD ORDERABLES Lori l Result [facility] [address] [place] [address] * PT-INR (10/06/2024 3:16 PM EDT) Prothrombin Time 12.4 12.0 - 14.3 sec LAB COAGULATION METHOD 10/06/2024 3:53 PM EDT [facility] INR 0.9 0.9 - 1.1 LAB COAGULATION METHOD 10/06/2024 3:53 PM EDT [facility] Blood Venous blood specimen / Unknown Venipuncture / Unknown 10/06/2024 3:16 PM EDT 10/06/2024 3:26 PM EDT Narrative [facility] - 10/06/2024 3:53 PM EDT OPTIMAL INR RANGES FOR PATIENT ON ORAL ANTICOAGULANT THERAPY Prevention of venous thromboembolism INR 2.0 to 3.0 In patients with heart disease: Atrial fibrillation INR 2.0 to 3.0 Valvular heart disease INR 2.0 to 3.0 Tissue heart valves INR 2.0 to 3.0 Mechanical prosthetic valves INR 2.5 to 3.5 Prevention of recurrent TN INR 2.5 to 3.5 us Donnell Beverly MD LAB BLOOD ORDERABLES Lori perez Result [facility] [address] [place] [address] * (ABNORMAL) CBC w/diff (10/06/2024 3:16 PM EDT) WBC Count 10.86(H) 3.70 - 10.30 10*3/uL LAB HEMATOLOGY METHOD 10/06/2024 3:34 PM EDT [facility] RBC Count 5.08 4.60 - 6.10 10*6/uL LAB HEMATOLOGY METHOD 10/06/2024 3:34 PM EDT [facility] HGB 15.9 13.7 - 17.5 g/dL LAB HEMATOLOGY METHOD 10/06/2024 3:34 PM EDT [facility] HCT 44.4 40.0 - 51.0 % LAB HEMATOLOGY METHOD 10/06/2024 3:34 PM EDT [facility] Platelet Count 217 155 - 369 10*3/uL LAB HEMATOLOGY METHOD 10/06/2024 3:34 PM EDT [facility] MCV 87 79 - 98 fL LAB HEMATOLOGY METHOD 10/06/2024 3:34 PM EDT [facility] MCH 31.3 26.0 - 32.0 pg LAB HEMATOLOGY METHOD 10/06/2024 3:34 PM EDT [facility] MCHC 35.8(H) 30.7 - 35.5 g/dL LAB HEMATOLOGY METHOD 10/06/2024 3:34 PM EDT [facility] RDW 12.4 11.5 - 14.5 % LAB HEMATOLOGY METHOD 10/06/2024 3:34 PM EDT [facility] MPV 10.4 8.8 - 12.5 fL LAB HEMATOLOGY METHOD 10/06/2024 3:34 PM EDT [facility] nRBC 0.0 <=0.0 per 100 WBCs LAB HEMATOLOGY METHOD 10/06/2024 3:34 PM EDT [facility] Differential Type Automated LAB HEMATOLOGY METHOD 10/06/2024 3:34 PM EDT [facility] Neutrophils % 48 % LAB HEMATOLOGY METHOD 10/06/2024 3:34 PM EDT [facility] Lymphocytes % 41 % LAB HEMATOLOGY METHOD 10/06/2024 3:34 PM EDT [facility] Monocytes % 8 % LAB HEMATOLOGY METHOD 10/06/2024 3:34 PM EDT [facility] Eosinophils % 1 % LAB HEMATOLOGY METHOD 10/06/2024 3:34 PM EDT [facility] Basophils % 1 % LAB HEMATOLOGY METHOD 10/06/2024 3:34 PM EDT [facility] Immature Granulocytes % 1 % LAB HEMATOLOGY METHOD 10/06/2024 3:34 PM EDT [facility] Neutrophils Absolute 5.30 1.60 - 6.10 10*3/uL LAB HEMATOLOGY METHOD 10/06/2024 3:34 PM EDT [facility] Lymphocytes Absolute 4.49(H) 1.20 - 3.90 10*3/uL LAB HEMATOLOGY METHOD 10/06/2024 3:34 PM EDT [facility] Monocytes Absolute 0.81 0.30 - 0.90 10*3/uL LAB HEMATOLOGY METHOD 10/06/2024 3:34 PM EDT [facility] Eosinophils Absolute 0.15 0.00 - 0.50 10*3/uL LAB HEMATOLOGY METHOD 10/06/2024 3:34 PM EDT [facility] Basophils Absolute 0.06 0.00 - 0.10 10*3/uL LAB HEMATOLOGY METHOD 10/06/2024 3:34 PM EDT [facility] Immature Granulocytes Absolute 0.05 0.00 - 0.06 10*3/uL LAB HEMATOLOGY METHOD 10/06/2024 3:34 PM EDT [facility] Blood Venous blood specimen / Unknown Venipuncture / Unknown 10/06/2024 3:16 PM EDT 10/06/2024 3:27 PM EDT Narrative [facility] - 10/06/2024 3:34 PM EDT Therapeutic decision making should be based on absolute values, rather than percentages. us Donnell Beverly MD LAB BLOOD ORDERABLES Lori l Result Performing Organization Address City/[facility]/ZIP Co de Phone Number [facility] [address] [place] [address] * Troponin now and 120 min (10/06/2024 3:16 PM EDT) Troponin T, High Sensitivity, 0 Hour 13 <19 ng/L 10/06/2024 3:57 PM EDT [facility] Blood Venous blood specimen / Unknown Venipuncture / Unknown 10/06/2024 3:16 PM EDT 10/06/2024 3:27 PM EDT us Donnell Beverly MD LAB BLOOD ORDERABLES Lori l Result [facility] [address] [place] [address] * BNP (10/06/2024 3:16 PM EDT) N-Terminal, PROBNP, Plasma <50 0 - 899 pg/mL 10/06/2024 3:57 PM EDT [facility] Blood Venous blood specimen / Unknown Venipuncture / Unknown 10/06/2024 3:16 PM EDT 10/06/2024 3:27 PM EDT us Donnell Beverly MD LAB BLOOD ORDERABLES Lori perez Result [facility] [address] [place] [address] * (ABNORMAL) Blood gas panel, venous (10/06/2024 3:16 PM EDT) pH, Venous 7.40 7.32 - 7.43 LAB HEMATOLOGY METHOD 10/06/2024 3:30 PM EDT [facility] pCO2, Venous 39(L) 40 - 55 mmHg LAB HEMATOLOGY METHOD 10/06/2024 3:30 PM EDT [facility] pO2, Venous 72(H) 25 - 40 mmHg LAB HEMATOLOGY METHOD 10/06/2024 3:30 PM EDT [facility] SO2, Measured, Venous 95(H) 65 - 80 % LAB HEMATOLOGY METHOD 10/06/2024 3:30 PM EDT [facility] Base Excess, Venous -0.6 -2.0 - 3.0 mmol/L LAB HEMATOLOGY METHOD 10/06/2024 3:30 PM EDT [facility] Bicarbonate, Calculated, Venous 24 22 - 26 mmol/L LAB HEMATOLOGY METHOD 10/06/2024 3:30 PM EDT [facility] Hematocrit, Whole Blood 49.1 40.0 - 51.0 % LAB HEMATOLOGY METHOD 10/06/2024 3:30 PM EDT [facility] Sodium, Whole Blood 132(L) 136 - 145 mmol/L LAB HEMATOLOGY METHOD 10/06/2024 3:30 PM EDT [facility] Potassium, Whole Blood 4.1 3.6 - 4.9 mmol/L LAB HEMATOLOGY METHOD 10/06/2024 3:30 PM EDT [facility] Chloride, Whole Blood 98 97 - 107 mmol/L LAB HEMATOLOGY METHOD 10/06/2024 3:30 PM EDT [facility] Glucose, Whole Blood 437(H) 74 - 99 mg/dL LAB HEMATOLOGY METHOD 10/06/2024 3:30 PM EDT [facility] Lactate, Venous, Whole Blood 2.4(H) 0.5 - 2.2 mmol/L LAB HEMATOLOGY METHOD 10/06/2024 3:30 PM EDT [facility] Ionized Calcium, Whole Blood 5.4(H) 4.6 - 5.1 mg/dL LAB HEMATOLOGY METHOD 10/06/2024 3:30 PM EDT [facility] Blood Venous blood specimen / Unknown Venipuncture / Unknown 10/06/2024 3:16 PM EDT 10/06/2024 3:28 PM EDT Donnell Beverly MD LAB BLOOD ORDERABLES Lori l Result [facility] [address] [place] [address] * Phosphorus (10/06/2024 3:16 PM EDT) Phosphorus, Plasma 4.1 2.5 - 4.5 mg/dL 10/06/2024 3:57 PM EDT [facility] Blood Venous blood specimen / Unknown Venipuncture / Unknown 10/06/2024 3:16 PM EDT 10/06/2024 3:27 PM EDT Donnell Beverly MD LAB BLOOD ORDERABLES Lori l Result Performing Organization Address City/[facility]/ZIP Co de Phone Number [facility] [address] [place] [address] * (ABNORMAL) Magnesium (10/06/2024 3:16 PM EDT) Magnesium, Plasma 1.8(L) 1.9 - 2.4 mg/dL 10/06/2024 3:57 PM EDT [facility] Blood Venous blood specimen / Unknown Venipuncture / Unknown 10/06/2024 3:16 PM EDT 10/06/2024 3:27 PM EDT Donnell Beverly MD LAB BLOOD ORDERABLES Lori l Result Performing Organization Address City/[facility]/ZIP Co de Phone Number [facility] [address] [place] [address] * (ABNORMAL) CMP (10/06/2024 3:16 PM EDT) Glucose, Plasma 446(H) 74 - 99 mg/dL 10/06/2024 3:57 PM EDT [facility] BUN, Plasma 15 8 - 23 mg/dL 10/06/2024 3:57 PM EDT [facility] Creatinine, Plasma 0.82 0.70 - 1.20 mg/dL 10/06/2024 3:57 PM EDT [facility] BUN/Creatinine Ratio 18 10/06/2024 3:57 PM EDT [facility] Sodium, Plasma 131(L) 136 - 145 mmol/L 10/06/2024 3:57 PM EDT [facility] Potassium, Plasma 4.3 3.6 - 4.9 mmol/L 10/06/2024 3:57 PM EDT [facility] Chloride, Plasma 95(L) 97 - 107 mmol/L 10/06/2024 3:57 PM EDT [facility] CO2, Plasma 21(L) 22 - 29 mmol/L 10/06/2024 3:57 PM EDT [facility] Anion Gap 15 6 - 16 mmol/L 10/06/2024 3:57 PM EDT [facility] Total Calcium, Plasma 10.4(H) 8.9 - 10.2 mg/dL 10/06/2024 3:57 PM EDT [facility] Total Protein 6.8 6.3 - 7.9 g/dL 10/06/2024 3:57 PM EDT [facility] Albumin, Plasma 4.1 3.5 - 5.2 g/dL 10/06/2024 3:57 PM EDT [facility] AST, Plasma 31 10 - 50 U/L 10/06/2024 3:57 PM EDT [facility] Comment:Hemolyzed, result ma y be falsely increased. ALT, Plasma 29 10 - 50 U/L 10/06/2024 3:57 PM EDT [facility] Alkaline Phosphatase, Plasma 99 40 - 115 U/L 10/06/2024 3:57 PM EDT [facility] Total Bilirubin, Plasma 0.4 0.2 - 1.1 mg/dL 10/06/2024 3:57 PM EDT [facility] eGFRcr 96.9 mL/min/1.7 3m*2 10/06/2024 3:57 PM EDT [facility] Comment:Reported eGFRcr in m L/min/1.73m2 is based the CKD-EPI 2020 equation that does not use a race coefficient. Blood Venous blood specimen / Unknown Venipuncture / Unknown 10/06/2024 3:16 PM EDT 10/06/2024 3:27 PM EDT Donnell Beverly MD LAB BLOOD ORDERABLES Lori perez Result [facility] [address] [place] [address] * XR Chest 1 View (10/06/2024 3:12 [...] culture not indicated 10/07/2024 12:01 AM EDT [facility] Comment: Previously prelim verified as [...] MD LAB URINE ORDERABLES Lori l Result [facility] [address] [place] [address] * (ABNORMAL) Urinalysis with reflex microscopic (Culture NOT Included) (10/06/2024 3:06 PM EDT) Color, Urine Yellow LAB URINALYSIS - AUTOMATED METHOD 10/06/2024 3:25 PM EDT [facility] Clarity, Urine Clear LAB URINALYSIS - AUTOMATED METHOD 10/06/2024 3:25 PM EDT [facility] Spec [place], Urine >1.030(H) 1.005 - 1.030 LAB URINALYSIS - AUTOMATED METHOD 10/06/2024 3:25 PM EDT [facility] pH, Urine 6.0 5.0 - 8.0 LAB URINALYSIS - AUTOMATED METHOD 10/06/2024 3:25 PM EDT [facility] Protein, Urine Negative Negative mg/dL LAB URINALYSIS - AUTOMATED METHOD 10/06/2024 3:25 PM EDT [facility] Glucose, Urine >=1000(A) Negative mg/dL LAB URINALYSIS - AUTOMATED METHOD 10/06/2024 3:25 PM EDT [facility] Ketones, Urine Negative Negative mg/dL LAB URINALYSIS - AUTOMATED METHOD 10/06/2024 3:25 PM EDT [facility] Blood, Urine Negative Negative LAB URINALYSIS - AUTOMATED METHOD 10/06/2024 3:25 PM EDT [facility] Bilirubin, Urine Negative Negative LAB URINALYSIS - AUTOMATED METHOD 10/06/2024 3:25 PM EDT [facility] Urobilinogen, Urine 0.2 0.2 to 1.0 mg/dL LAB URINALYSIS - AUTOMATED METHOD 10/06/2024 3:25 PM EDT [facility] Leukocytes, Urine Negative Negative LAB URINALYSIS - AUTOMATED METHOD 10/06/2024 3:25 PM EDT [facility] Nitrite, Urine Negative Negative LAB URINALYSIS - AUTOMATED METHOD 10/06/2024 3:25 PM EDT [facility] Urine Urine specimen obtained by clean catch procedure / Unknown Non-blood Collection / Unknown 10/06/2024 3:06 PM EDT 10/06/2024 3:19 PM EDT Donnell Beverly MD LAB URINE ORDERABLES Lori l Result [facility] [address] [place] [address] * (ABNORMAL) POCT glucose meter (10/06/2024 2:17 [...] Comment 10/06/2024 2:18 PM EDT [facility] Soaker Hides ID Paulina Gaspar 10/06/2024 2:18 PM EDT [facility] Device ID [id number] 10/06/2024 2:18 PM EDT [facility] Specimen Type POC Capillary 10/06/2024 2:18 PM EDT [facility] Blood Capillary blood specimen / Unknown 10/06/2024 2:17 PM EDT 10/06/2024 2:18 PM EDT us Generic Provider Poct LAB POINT OF CARE TEST DOCKED DEVICE UNSOLICITED RESULTS Final Result Performing Organization Address City/[facility]/ZIP Co de Phone Number [facility] [address] [place] [address] * EKG now - STAT (adult) (10/06/2024 2:13 PM EDT) EKG DIAGNOSIS CLASS Abnormal MUSE ECG Ventricular Rate 77 BPM MUSE ECG Atrial Rate 77 BPM MUSE ECG WV Interval 176 ms MUSE ECG QRSD Interval 144 ms MUSE ECG QT Interval 428 ms MUSE ECG QTC Interval 484 ms MUSE ECG P [place] 27 degrees MUSE ECG R [place] -72 degrees MUSE ECG T Wave [place] 43 degrees MUSE ECG Diagnosis Sinus rhythm [...] MUSE ECG Diagnosis Confirmed by Albino Reveles ([id number]) on 10/07/2024 10:01:25 AM MUSE ECG 10/06/2024 [...] Huitron) documented in this encounter Care Teams Hydrodynamics Professor Relationship Specialty Start Date End Date Efrem Lauren DO [address] [place] [address] [place] [id number] PCP - General 10/06/24 documented as of this encounter
[2024-12-06 19:37] VITALS: BP 152/95; PULSE 67; RESP 20; TEMP 36.7; O2SAT 97; BMI 27.8
--- OUTSIDE RECORDS SUMMARY | 2024-12-06 19:44 | XMS_ITS | Clinical Summary ---
Author Organization [facility] Address [address] [place] [address] Phone Care Team Providers Care Core Assembly Supervisor Name Role Phone Cornelia De Leon MD Conditions or Problems Problem Name Problem Code Onset Date Status Entry Date Provider Comment Standard Description Annotate *AFTERCARE FOLLOW SURGERY, NERVOUS SYSTEM NEC Z48.811 (ICD-10-CM) Active Cornelia De Leon MD Encounter for surgical aftercare following surgery on the nervous system RADICULOPATHY , LUMBAR REGION M54.16 (ICD-10-CM) Active Aakash Morfin Radiculopathy , lumbar region UNSPECIFIED PRE-OPERATIVE EXAMINATION 257395899 (SNOMED CT) Active Ritika Gonzalez History and physical examination for surgical clearance LUMBOSACRAL RADICULITIS 44456406 (SNOMED CT) Active Cornelia De Leon MD Lumbosacral radiculitis OVERWEIGHT 140512023 (SNOMED CT) Active Cornelia De Leon MD Overweight Medications Medication Instructions Start Date Stop Date Generic Name [facility] Provider HIBICLENS 4 % EXTERNAL LIQUID Wash the entire back and hip/buttock areas the night prior to the surgey CHLORHEXIDINE GLUCONATE 35404851445 Cornelia De Leon MD HIBICLEJUANITA 4 % EXTERNAL LIQUID Wash the entire back and hip/buttock areas the night prior to the surgey CHLORHEXIDINE GLUCONATE 79975554382 Cornelia De Leon MD ACCU-CHEK FASTCLIX LANCETS Non-[place] LANCETS [id number] Cornelia De Leon MD LISINOPRIL 20 MG TABS 1 daily Non- LISINOPRIL 19832828902 Cornelia De Leon MD SILDENAFIL CITRATE 20 MG TABS 1 tid Non- SILDENAFIL CITRATE 41198808403 Cornelia De Leon MD TAMSULOSIN HCL 0.4 MG CAPS 1 qhs Non- TAMSULOSIN HCL 51452047025 Cornelia De Leon MD BREO ELLIPTA 100-25 MCG/ACT AEPB 1 daily Non- FLUTICASONE FUROATE-VILANTER OL 51295549305 Cornelia De Leon MD DILTIAZEM HCL ER COATED BEADS 120 MG [id number] 1 daily Non- DILTIAZEM HCL COATED BEADS 39542914299 Cornelia De Leon MD METOPROLOL SUCCINATE ER 100 MG [id number]-XFG 1 daily Non- METOPROLOL SUCCINATE 53743528306 Cornelia De Leon MD ATORVASTATIN CALCIUM 40 MG TABS 1 qhs Non- ATORVASTATIN CALCIUM 74560642655 Cornelia De Leon MD STRESS PLUS ZINC TABS 1 daily Non- B [id number] 78060014521 Cornelia De Leon MD FENOFIBRATE MICRONIZED 134 MG CAPS 1 daily Non- FENOFIBRATE MICRONIZED 17654145569 Cornelia De Leon MD TIZANIDINE HCL 4 MG TABS 1 qhs - TIZANIDINE HCL 47511539301 Cornelia De Leon MD NORTRIPTYLINE HCL 25 MG CAPS 1 qhs Non- NORTRIPTYLINE HCL 29530291936 Cornelia De Leon MD CO Q 10 CAPS 1 daily Non- COENZYME Q10 CAPS 65848270558 Cornelia De Leon MD OXYCODONE-ACETAM INOPHEN 5-325 MG TABS 1 po q 6 hours Non- OXYCODONE-ACETAM INOPHEN 62994731571 Cornelia De Leon MD OMEPRAZOLE 40 MG CPDR 1 daily Non- OMEPRAZOLE 97519980726 Cornelia De Leon MD METFORMIN HCL ER 500 MG [id number]-[id number] 1 daily Non- METFORMIN HCL 87048696527 Cornelia De Leon MD ASPIRIN ADULT LOW DOSE 81 MG TBEC 1 daily Non-Tellez ASPIRIN 06910963845 Cornelia De Leon MD FUROSEMIDE 40 MG TABS 1 daily Non-Tellez FUROSEMIDE 75190461491 Cornelia De Leon MD POTASSIUM CHLORIDE ZULEMA ER 20 MEQ CR-TABS 1 daily Non-Tellez POTASSIUM CHLORIDE ZULEMA CR 68602813381 Cornelia De Leon MD BACLOFEN TABS 1 tid Non-Tellez BACLOFEN TABS 02028107454 Cornelia De Leon MD Medications Administered No information available. Allergies, Adverse Reactions, Alerts Observed no known allergies at Results No information available. Plan of [...] Procedures Code Procedure Name Date Entry Date [address]38 MRI Thoracic Spine 1 Vital Signs Date [...]
--- OUTSIDE RECORDS SUMMARY | 2024-12-06 19:44 | XMS_ITS ---
Author Organization [facility] Care Team Providers Care Systems Manager Name Role Phone Zeferino Flores Unavailable Unavailable Miroslava Manuel Unavailable Unavailable Alley Padilla Unavailable Unavailable Allergies and adverse reactions Code CodeSystem Substance Reaction Severity StartDate Concern Status 92226 RXNORM Gabapentin Unknown 11/16/[address] Wasp venom Unknown 11/16/2023 active Care Team Name Role Address Phone Organization Dates Zeferino Flores PCP [address], [place], [address], [place] (Office): : [facility] 11/17/2023 - 12/04/2023 Miroslava Manuel [address] [facility] [place], [address], [place] (Cell): [facility] 11/17/2023 - 12/04/2023 Alley Padilla [address] [place], [address], [place] (Fax): [facility] 11/17/2023 - 12/04/2023 Immunizations Immunization Status Vaccine Details Vaccine Code CodeSystem Date Notes Influenza cancelled Influenza, high-dose, split virus, trivalent, injectable, preservative free 135 CVX created date: 11/19/2023 consent date: 11/18/2023 Educated by BEAU HERNÁNDEZ on 11/17/2023 TB 2 Step Mantoux Skin Test completed tuberculin skin test; unspecified formulation Given 0.1 ml intradermally Step 2 of Multi-step with next step required 98 CVX created date: 11/28/2023 consent date: 11/28/2023 administer ed date: 11/24/2023 TB 2 Step Mantoux Skin Test completed tuberculin skin test; unspecified formulation Given 0.1 ml Right Forearm intradermally Step 1 of Multi-step with next step required 98 CVX created date: 11/17/2023 consent date: 11/17/2023 administer ed date: 11/17/2023 Pneumovax (PPSV23) completed pneumococcal polysaccharide vaccine, 23 valent 33 CVX created date: 11/17/2023 administer ed date: 08/25/2014 SARS-COV-2 (COVID-19) cancelled SARS-COV-2 (COVID-19) vaccine, mRNA, spike protein, LNP, preservative free, cat-sucrose, 30 mcg/0.3 mL dose 309 CVX created date: 11/19/2023 consent date: 11/18/2023 Educated by BEAU HERNÁNDEZ on 11/17/2023 Pneumovax (PCV13, PCV15, or PCV20) cancelled Pneumococcal conjugate vaccine 20-valent (PCV20), polysaccharide RUP866 conjugate, adjuvant, preservative free 216 CVX created date: 11/19/2023 consent date: 11/18/2023 Educated by BEAU HERNÁNDEZ on 11/17/2023 Pneumovax (PCV13, PCV15, or PCV20) completed Pneumococcal conjugate vaccine 20-valent (PCV20), polysaccharide OAP129 conjugate, adjuvant, preservative free 216 CVX created date: 11/17/2023 administer ed date: 09/17/2022 Mental Status Section Date Assessment Total Score Description 12/04/2023 CAM 0 No delirium ind icated 11/23/2023 BIMS 15 cognitively int act CAM 0 No delirium ind icated PHQ-9 10 moderate depres malou Insurance Providers Problems Problem # Description Date of onset Resolved Date Code CodeSystem Concern Status 1 ELEVATED WHITE BLOOD CELL COUNT, UNSPECIFIED 11/21/[address] active 2 BENIGN PROSTATIC HYPERPLASIA WITH LOWER URINARY TRACT SYMPTOMS 11/17/[address] active 3 MAJOR DEPRESSIVE DISORDER, SINGLE EPISODE, UNSPECIFIED 11/17/[address] active 4 AGE-RELATED PHYSICAL DEBILITY 11/16/[address] active 5 EMPHYSEMA, UNSPECIFIED 11/16/[address] active 6 GASTRO-ESOPHAGEAL REFLUX DISEASE WITHOUT ESOPHAGITIS 11/16/[address] active 7 HYPERTENSION SECONDARY TO ENDOCRINE DISORDERS 11/16/[address] active 8 OTHER CHEST PAIN 11/16/[address] a ctive 9 OTHER INTERVERTEBRAL DISC DEGENERATION, LUMBAR REGION WITHOUT MENTION OF LUMBAR BACK PAIN OR LOWER EXTREMITY PAIN 11/16/[address] active 10 OTHER LOW BACK PAIN 11/16/[address] active 11 RESTLESS LEGS SYNDROME 11/16/[address] active 12 RHEUMATOID ARTHRITIS, UNSPECIFIED 11/16/[address] active 13 TYPE 2 DIABETES MELLITUS WITH OTHER CIRCULATORY COMPLICATIONS 11/16/[address] active Reason for Referral No Reasons for Referral Entered Social History Social History Observation Description Start Date End Date Code Code System Current Smoking Status Tobacco smoking consumption unknown 415034604 SNOMED CT Sex Assigned At Male 1960 45962-9 [facility] Gender Identity Sexual Orientation Vital Signs Code Code System Vitals Name Values and Units Timing Information 9279-1 [facility] Respiratory Rate Value=18.0 Units=/m in 12/04/2023 8462-4 [facility] Blood Pressure-Diastolic Value=90 Un its=mmHg 12/04/2023 8480-6 [facility] Blood Pressure-Systolic Ksaaa=281 Un its=mmHg 12/04/2023 8310-5 [facility] Body Temperature Value=97.7 Units= F 12/04/2023 8867-4 LOINC Heart rate Value=73.0 Units=/min 38510-0 [facility] O2 % BldC Oximetry Value=97.0 Units= % 12/04/2023 2339-0 [facility] Blood Sugar Lttjj=042.0 Units=mg/dL 12/04/2023 65956-7 [facility] Pain Level Value=2.0 12/04/2023 40647-2 [facility] Weight Gigac=539.2 Units=Lbs 8302-2 [facility] Height Value=72.0 Units=Inches 11/17/2023
--- OUTSIDE RECORDS SUMMARY | 2024-12-06 19:45 | XMS_ITS | Clinical Summary ---
Author Organization [facility] Address [address] [place] [address] Phone Care Team Providers Care Training Representative Name Role Phone Mila Lange MD Primary Care Provider [phone] Allergies Active Allergy Reactions Criticality Noted Date Comments Gabapentin Swelling 05/02/2022 [id number] Antimigraine Agents Other (See Comments) 01/19/2024 Contraindicated [...] 01/15/20 Active nalOXone (NARCAN) 4 mg/actuation Nasl Gibbs, Non-Aerosol 0.1 mL by Nasal route as [...] (Inject under the skin) 46 Units nightly. Childwold too please. May increase 2 units per day until fasting blood sugar is 80-110. Max potential is 100 units 18 mL 3 01/25/20 Active Additional Information Patient taking differently: 36 UnitsSubcutaneous NIGHTLY, Childw[place] too please. May increase 2 units per [...] hyperglycemia, without long-term current use of insulin ([facility]) 1 Each by [facility] [...] complication, without long-term current use of insulin ([facility]) TEST BLOOD SUGAR TWICE DAILY 100 Strip 04/26/19 25 Active ACCU-CHEK SOFTCLIX LANCETS [facility] USE TO TEST BLOOD SUGAR TWICE DAILY [...] migh t be different from the original. [facility] - Dr. Epps Interventional Pain Protocol: SNC Appt 05/02/24, NS Appt 03/28/24, 06/06/24 Moshe report completed (EVERY 3 MONTHS) (06/06/2024 ) Pharmacy: [facility] [place] [address] - [address] [facility] [phone] Spine Center additional info (Transportation, WC, Compound, [...] DKA secondary to Jardiance Is on insulin/Jardiance [employer]CH[employer]IC, now on hold A1c 9.7 on 01/19/2024 [...] (07/29/2021): Added automatically from request for surgery [id number] Assessment & Plan (02/02/2024 12:58 PM EST): History of OK Consider baby aspirin, consider statin PAF (paroxysmal [...] PM EST): On beta-demetri, not on anticoagulation [employer] Assessment & Plan (01/21/2024 1:41 PM EST): [...] (02/02/2024 12:58 PM EST): Not on treatment [employer] History of pneumothorax 09/04/2014 Overview (09/04/2014): 08/2014 [...] (02/02/2024 12:58 PM EST): Not on treatment [employer] Tobacco use Assessment & Plan (02/02/2024 12:58 [...] Encounters Date Type Department Care Team Description 11/14/2024 Patient Outreach [facility] [address] [place] [address] Mila Lange MD Central Patient Navigator Outreach (AWV) 09/18/[address] [facility] [address] [place] [address] Marilynn Bates, [facility] Medication Management from Last 3 Months Immunizations [...] with pleuradisis; Surgeon: Frederick Holland MD; Location: [facility]; Service: General LUNG SURGERY 2010, [...] INTERVENTION(PCI) 07/31/2021 N/A CORONARY PERCUTANEOUS INTERVENTION (PCI) [[id number]]; Surgeon: Chaz Moya MD; Location: [facility]; Service: Cardiac Medical devices from this [...] Hyperlipidemia COPD (chronic obstructive pu lmonary disease) ([facility]) inhalers. O2 @ 2l/nc @ HS Blood circulation, collateral fe et/ankles swell, takes Lasix Heartburn Arthritis Neuromuscular disorder ([facility]) num bness and tingling left leg related to back issues Prostate disorder Diabetes mellitus (HCC) type 2 t imes 6 months NIDDM Tobacco use Family History Medical History Relation Name Comments Diabetes Father Anesth Problems Neg Hx Relation Name Status Comments Father Alive Mother Alive Social History Tobacco Use Types Packs/Day Years Used Date Smoking Tobacco: Every Day Cigarettes 1.5 55.8 Started: 02/07/1969 Smokeless Tobacco: Never Tobacco Cessation:Ready to Q uit: Not Asked; Counseling Given: Not Answered Comments:Pt reports he is currently smoking 0.5ppd-02/13/19-KR Pt states he is only smoking 3-4 cigarettes a day now - 01/19/24 KN Alcohol Use Standard Drinks/Week Comments Yes 4 (1 standard drink = 0.6 oz pure alcohol) pt reports drinking 4 shots of Radiant [employer] [facility] Utilities Answer Date Recorded In the past 12 months has [employer], gas, oil, or water [employer] Creation threatened to shut off services in your home? No 05/11/2024 Overall Financial Resource Strain (CARDIA) Answe r Date Recorded How hard is it for you to pa y for the very basics like food, housing, medical care, and heating? Not very hard 05/11/2024 PHQ-2 Answer Date Recorded PHQ-2 Total Score 0 05/11/2024 [facility] [place] [facility] Occupat ional Health - Occupational Stress [...] things needed for daily living? No 01/12/2023 [facility] Transportation Answer D ate Recorded [...] FIT 08/10/2003 Sigmoidoscopy 08/10/2003 Virtual Colonography 08/10/2003 RSV or 60+ (1 - Risk 50-74 years 1-dose series) 2008 Zoster (1 of 2) 2008 AAA Screening 08/10/2023 Wellness Exam Medicare 10/06/2024 [...] Lange MD Medical Devices Implanted Type Area Pipe Organ Mechanic Apprentice Device Identifier Shelf Expiration Date Model / Serial / Lot Kit Lead Surgical Artisan 2 X 8 70cm - [id number] Implanted:Qty: 1 on 09/08/2016 by Cornelia De Leon MD at [facility] N/A: Spine Thoracic [employer]NEUR[employer]ION 05/08/2018 [id number] / [id number] / [id number] 3 Kitgenerator Pulse Implantable Mri Montage Precision - [id number] Implanted:Qty: 1 on 09/08/2016 by Cornelia De Leon MD at [facility] N/A: Back [employer]NEUR[employer] 08/04/2018 [id number] / [id number] / [id number] 3.5mm X 32mm Synergy Stent - [id number] Implanted:Qty: 1 on 07/31/2021 by Chaz Moya MD at [facility] N/A: LAD [employer]CARDIAC RHYTHM MGMT [id number] 09/12/2021 [id number] / / [id number] 3.0mm X 20mm Synergy Stent - [id number] Implanted:Qty: 1 on 07/31/2021 by Chaz Moya MD at [facility] N/A: Ramus [employer]CARDIAC [employer]HY[employer] MGMT [id number] 06/17/2022 [id number] / / [id number] Procedures Procedure Name Priority Date/Time Associated Diagnosis Comments BASIC METABOLIC PANEL Early AM 05/13/2024 5:28 [...] artery Screening for AAA (abdominal aortic aneurysm) ALBUMIN/CREATININE RATIO, RANDOM URINE Routine 01/19/2024 3:09 PM EST Type 2 diabetes mellitus without complication, unspecified whether mastic floor layer insulin use (HCC) ACUTE HEPATITIS PANEL Routine 04/10/2019 9:08 AM EST Type 2 diabetes mellitus without complication, without long-term current use of insulin (HCC) Essential hypertension Elevated liver enzymes Generalized abdominal pain HM DIABETES EYE EXAM Routine 09/18/2018 from Last 3 Months or Most Recently Relevant to Health Maintenance Results * (ABNORMAL) BASIC METABOLIC PANEL (05/13/2024 5:28 AM EDT) [facility] Sodium 140 136 - 145 mmol/L 05/13/2024 6:43 AM EDT [facility] Potassium 3.7 3.5 - 5.0 mmol/L 05/13/2024 6:43 AM EDT [facility] Chloride 108(H) 98 - 107 mmol/L 05/13/2024 6:43 AM EDT [facility] Total CO2 23 22 - 29 mmol/L 05/13/2024 6:43 AM EDT [facility] Anion Gap 9 7 - 16 mmol/L 05/13/2024 6:43 AM EDT [facility] Calcium 8.6(L) 8.8 - 10.4 mg/dL 05/13/2024 6:43 AM EDT [facility] Glucose Lvl 94 70 - 99 mg/dL 05/13/2024 6:[facility] BUN 8 8 - 23 mg/dL 05/13/2024 6:43 [facility] Creatinine 0.68 0.67 - 1.30 mg/dL 05/13/2024 6:43 [facility] eGFR (CKD-EPIcr 2020) 103 >=60 mL/min/1.7 3 m2 05/13/2024 6:43 AM EDT [facility] Comment:Estimated GFR was ca lculated using the CKD-EPIcr (2020) equation refit without race. The equation is recommended by the National Kidney Foundation - [place] Society of Nephrology Task Force. Blood VENOUS BLOOD / Unknown Venipuncture / Unknown 05/13/2024 5:28 AM EDT 05/13/2024 6:15 AM EDT us Mami Ulloa MD CHEMISTRY ORDERABLES Final Resul t [facility] [address] [place] [address] * CT ANGIOGRAM CHEST ABDOMEN W CONTRAST [...] - 5.6 % 04/10/2024 10:14 PM EST [employer] Est. Avg Glucose 160 mg/dL 04/10/2024 10:14 PM EST [facility] Blood VENOUS BLOOD / Unknown Venipuncture / Unknown 04/10/2024 1:37 PM EST 04/10/2024 1:37 PM EST Narrative [facility] [email or web address] [facility] - 04/10/2024 10:14 PM EST REFERENCE RANGE: Normal: 4.0-5.6% Pre-diabetes: 5.7-6.4% Provisional diagnosis of diabetes: >6.4% Hgb F>10% and anything which shortens red cell survival, such as hemolytic anemia, or unstable hemoglobin variants such as HbSS, HbSC, or HbCC, will lower the HbA1c value associated with a given level of glycemic control. us Mila Lange MD CHEMISTRY ORDERABLES Final Res ult [facility] [email or web address] [facility] [address] [facility] [place] [id number] [facility] [address] [place] [address] * (ABNORMAL) LIPID SCREEN (04/10/2024 1:37 PM EST) [facility] Cholesterol 165 <200 mg/dL 04/10/2024 9:07 PM EST [employer] Comment: < 200 Desirable 200 - 239 Borderline High >= 240 High Triglyceride 165(H) <150 mg/dL 04/10/2024 9:07 PM EST [employer] Comment: < 150 Normal 150 - 199 Borderline High 200 - 499 High >= 500 Very High HDL 41 >=40 mg/dL 04/10/2024 9:07 PM EST [employer] [facility] Comment: > 60 Optimal 40 - 60 Acceptable < 40 Low LDL Calculated 95 <100 mg/dL 04/10/2024 9:07 PM EST [employer] Comment: < 100 Optimal 100 - 129 Near or above optimal 130 - 159 Borderline High 160 - 189 High >= 190 Very High The National Institutes of Health (NIH) equation is used for all lipid panels that report calculated LDL (LDL-C). Non-HDL-C Calculated 124 <=129 mg/dL 04/10/2024 9:07 PM EST [employer] Comment: <130 Desirable 130-159 Above Desirable 160-189 Borderline High 190-219 High >= 220 Very High Fasting Specimen? Yes None 025 9:07 PM EST [facility] Blood VENOUS BLOOD / Unknown Venipuncture / Unknown 04/10/2024 1:37 PM EST 04/10/2024 1:37 PM EST us Mila Lange MD CHEMISTRY ORDERABLES Final Res ult Performing Organization Address [facility] de Phone Number PREFERRED LAB [facility], [address] , [place] [address] [facility] [address] [place] [address] * MICROALBUMIN/CREATININE RATIO URINE (01/19/2024 3:09 PM EST) [facility] Urine Albumin <12.0 mg/L 01/19/2024 8:46 PM EST PREFERRED [employer], [facility] Urine Creatinine 45.1 mg/dL 01/19/20 24 8:46 PM EST [facility], [facility] Ur Albumin/Creat Ratio 01/19/2024 8:46 PM EST [email or web address], [facility] Comment: Because the albumin level [...] URINE ORDERABLES Final Result Performing Organization Address [facility] de Phone Number [email or web address], [address] , [place] [address] * ACUTE HEPATITIS PANEL (04/10/2019 9:08 AM EST) [facility] Hep Bs Ag Non-Reacti ve Non-Reacti ve 04/10/2019 3:08 PM EST PREFERRED [facility], [employer] Hep B Core IgM Non-Reacti ve Non-Reacti ve 04/10/2019 3:08 PM EST PREFERRED LAB [facility], [facility] Hep A IgM Non-Reacti ve Non-Reacti ve 04/10/2019 3:08 PM EST PREFERRED LAB [employer] Hep C Ab Non-Reacti ve Non-Reacti ve 04/10/2019 3:08 PM EST [employer] Blood VENOUS BLOOD / Unknown Venipuncture / Unknown 04/10/2019 9:08 AM EST 04/10/2019 9:08 AM EST us Mila Lange MD CHEMISTRY ORDERABLES Final Res ult PREFERRED [employer] [address] [facility] , [place] [address] * DIABETES EYE EXAM (09/18/2018) us Historical Provider HEALTH MAINTENANCE Final Res ult Performing Organization Address [facility] de Phone Number SEP OFFICE from Last 3 Months or Most Recently Relevant to Health Maintenance Insurance FRANNIE HARRINGTON MR FRANNIE HARRINGTON MR FRANNIE HARRINGTON MR Advance Directives For more information, please contact: [phone] * Full Code (Latest Code Status on [...] 5:12 AM 02/16/2024 11:29 PM Care Teams Training Representative Relationship Specialty Start Date End Date Mila Lange MD [address] [place] [address] PCP - General Family Medicine 06/22/11
--- OUTSIDE RECORDS SUMMARY | 2024-12-06 19:45 | XMS_ITS | Clinical Summary ---
Author Organization Healthcare Address [address] [place] [address] Care Team Providers Care [employer] Supervisor Name Role Phone Efrem Lauren DO Primary Care Provider [phone] Allergies Active Allergy Reactions Criticality Noted Date Comments Gabapentin Swelling High 10/06/2024 Wasp Venom Protein Anaphylaxis High 10/06/2024 Medications azithromycin (Zithromax Z-Braydon) 250 MG tabletIndication s:Pneumonia due to infectious organism, unspecified laterality, unspecified part of lung Take 2 tablets day 1 followed by 1 tablet daily on days 2 thru 5 6 tablet Active Encounters Date Type Department Care Team Description 10/06/2024 2:02 PM EDT - 10/06/2024 8:35 PM EDT Emergency [facility] Emergency Department [address] [place] [address] Philippe Bernal MD Chest pain, unspecified type [...] Hemoglobin A1C 1958 [facility]-Hepatitis C Screening 1958 [facility]-Medicare Annual Wellness (AWV) 1958 [facility]-/Child/Adol SDOH Screenings 1958 [facility]-Obesity Intervention 1964 Diabetes: Dental Exam 1968 [facility]- SDOH Screenings 1976 [facility]-Adult SDOH Screenings 1976 CT Colonography 08/10/2003 Colonoscopy 08/10/2003 FIT-DNA 08/10/2003 FIT 08/10/2003 FOBT 08/10/2003 Sigmoidoscopy 08/10/2003 [facility]-Colorectal Cancer Screening 08/10/2003 [facility]-Zoster Vaccines (1 of 2) 2008 [facility]-RSV Vaccine: 60+ Years or (1 - Risk 60-74 years 1-dose series) 2018 [id number] Vaccine (1 - season) 2024 [facility]-Influenza Vaccine [...] EDT BLOOD GAS PANEL, VENOUS STAT 10/07/19 25 3:16 PM EDT PHOSPHORUS, PLASMA STAT 10/06/2024 [...] - 99 mg/dL 10/06/2024 6:50 PM EDT [facility] Comment:Accuracy of a [...] Comment 10/06/2024 6:50 PM EDT [facility] Voting Machine Repairer ID Paulina Gaspar 10/06/2024 6:50 PM EDT [facility] Device ID [id number] 10/06/2024 6:50 PM EDT [facility] Specimen Type POC Capillary 10/06/2024 6:50 PM EDT [facility] Blood Capillary blood specimen / Unknown 10/06/2024 6:49 PM EDT 10/06/2024 6:50 PM EDT us Philippe Bernal MD LAB POINT OF CARE TE ST DOCKED DEVICE UNSOLICITED RESULTS Final Result [facility] [address] [place] [address] * EKG now - STAT (adult) (10/06/2024 5:56 PM EDT) Only the most recent of2 resultswithin the time period is included. EKG DIAGNOSIS CLASS Abnormal MUSE ECG Ventricular Rate 72 BPM MUSE ECG Atrial Rate 72 BPM MUSE ECG OH Interval 170 ms MUSE ECG QRSD Interval 134 ms MUSE ECG QT Interval 460 ms MUSE ECG QTC Interval 503 ms MUSE ECG P [place] 23 degrees MUSE ECG R [place] -69 degrees MUSE ECG T Wave [place] -3 degrees MUSE ECG Diagnosis Normal sinus rhythm MUSE ECG Diagnosis Left axis deviation MUSE ECG Diagnosis Right bundle branch block MUSE ECG Diagnosis Abnormal ECG MUSE ECG Diagnosis MUSE ECG Diagnosis Confirmed by Albino Reveles ([id number]) on 10/07/2024 10:14:31 AM MUSE ECG 10/06/2024 5:56 PM EDT 10/07/2024 10:14 AM EDT us Philippe Bernal MD ECG ORDERABLES Final Result MUSE ECG * Troponin T, High Sensitivity, 2 Hour, Plasma (10/06/2024 5:40 PM EDT) Troponin T, High Sensitivity, 2 Hour 12 <19 ng/L 10/06/2024 6:23 PM EDT [facility] Blood Venous blood specimen / Unknown Venipuncture / Unknown 10/06/2024 5:40 PM EDT 10/06/2024 5:54 PM EDT us Donnell Beverly MD LAB BLOOD ORDERABLES Lori l Result [facility] [address] [place] [address] * Anti Xa Level Unfractionated Heparin (10/06/2024 4:17 PM EDT) Anti Xa Level Unfractionated Heparin <0.11 <1.00 IU/mL LAB COAGULATION METHOD 10/06/2024 4:53 PM EDT [facility] Blood Venous blood specimen / Unknown Venipuncture / Unknown 10/06/2024 4:17 PM EDT 10/06/2024 4:27 PM EDT Narrative [facility] - 10/06/2024 4:53 PM EDT Therapeutic Range: UFH Full Dose and ACS/WI protocols*: 0.30 - 0.70 IU/mL UFH Low Dose protocol*: 0.25 - 0.50 IU/mL UFH prophylaxis: Not established us Philippe Bernal MD LAB BLOOD ORDERABLES Final Res ult [facility] [address] [place] [address] * CT Angio Chest (10/06/2024 3:52 PM EDT) Anatomical Region Laterality Modality Chest Computed Tomogra phy Impressions 10/06/2024 4:43 PM EDT 1. No acute traumatic aortic injury. 2. No acute findings in the chest. 3. Lower lobe predominant cystic change probably represents bullae in the setting of mild emphysema, however cystic lung disease is also possible, in which case lymphocytic interstitial pneumonia or Wtsa-Ofwo-Mryh syndrome are the most likely cause cysts [...] possible,in which case lymphocytic interstitial pneumonia or Xrvw-Nsge-Znszsqmuyjhv are the most likely cause cysts in [...] 13 <19 ng/L 10/06/2024 3:57 PM EDT [facility] Blood Venous blood specimen / Unknown Venipuncture / Unknown 10/06/2024 3:16 PM EDT 10/06/2024 3:27 PM EDT us Donnell Beverly MD LAB BLOOD ORDERABLES Lori l Result [facility] [address] [place] [address] * Beta-Hydroxybutyric Acid (10/06/2024 3:16 PM EDT) Beta-Hydroxybut yric Acid, Plasma 0.21 <=0.27 mmol/L 10/06/2024 4:19 PM EDT [facility] Blood Venous blood specimen / Unknown Venipuncture / Unknown 10/06/2024 3:16 PM EDT 10/06/2024 3:27 PM EDT us Donnell Beverly MD LAB BLOOD ORDERABLES Lori l Result Performing Organization Address City/[facility]/Z[place] [address] * BNP (10/06/2024 3:16 PM EDT) N-Terminal, PROBNP, Plasma <50 0 - 899 pg/mL 10/06/2024 3:57 PM EDT [facility] Blood Venous blood specimen / Unknown Venipuncture / Unknown 10/06/2024 3:16 PM EDT 10/06/2024 3:27 PM EDT us Donnell Beverly MD LAB BLOOD ORDERABLES Lori l Result Performing Organization Address [facility] [place] [address] * PT-INR (10/06/2024 3:16 PM EDT) Pathologist [facility] Prothrombin Time 12.4 12.0 - 14.3 sec LAB COAGULATION METHOD 10/06/2024 3:53 PM EDT [facility] INR 0.9 0.9 - 1.1 LAB COAGULATION METHOD 10/06/2024 3:53 PM EDT [facility] Blood Venous blood specimen / Unknown Venipuncture / Unknown 10/06/2024 3:16 PM EDT 10/06/2024 3:26 PM EDT Narrative [facility] - 10/06/2024 3:53 PM EDT OPTIMAL INR RANGES FOR PATIENT ON ORAL ANTICOAGULANT THERAPY Prevention of venous thromboembolism INR 2.0 to 3.0 In patients with heart disease: Atrial fibrillation INR 2.0 to 3.0 Valvular heart disease INR 2.0 to 3.0 Tissue heart valves INR 2.0 to 3.0 Mechanical prosthetic valves INR 2.5 to 3.5 Prevention of recurrent WI INR 2.5 to 3.5 Donnell Beverly MD LAB BLOOD ORDERABLES Lori l Result Performing Organization Address City/[facility]/ZIP Co de Phone Number [facility] [address] [place] [address] * (ABNORMAL) CBC w/diff (10/06/2024 3:16 PM EDT) WBC Count 10.86(H) 3.70 - 10.30 10*3/uL LAB HEMATOLOGY METHOD 10/06/2024 3:34 PM EDT [facility] RBC Count 5.08 4.60 - 6.10 10*6/uL LAB HEMATOLOGY METHOD 10/06/2024 3:34 PM EDT [facility] HGB 15.9 13.7 - 17.5 g/dL LAB HEMATOLOGY METHOD 10/06/2024 3:34 PM EDT [facility] HCT 44.4 40.0 - 51.0 % LAB HEMATOLOGY METHOD 10/06/2024 3:34 PM EDT [facility] Platelet Count 217 155 - 369 10*3/uL LAB HEMATOLOGY METHOD 10/06/2024 3:34 PM EDT [facility] MCV 87 79 - 98 fL LAB HEMATOLOGY METHOD 10/06/2024 3:34 PM EDT [facility] MCH 31.3 26.0 - 32.0 pg LAB HEMATOLOGY METHOD 10/06/2024 3:34 PM EDT [facility] MCHC 35.8(H) 30.7 - 35.5 g/dL LAB HEMATOLOGY METHOD 10/06/2024 3:34 PM EDT [facility] RDW 12.4 11.5 - 14.5 % LAB HEMATOLOGY METHOD 10/06/2024 3:34 PM EDT [facility] MPV 10.4 8.8 - 12.5 fL LAB HEMATOLOGY METHOD 10/06/2024 3:34 PM EDT [facility] nRBC 0.0 <=0.0 per 100 WBCs LAB HEMATOLOGY METHOD 10/06/2024 3:34 PM EDT [facility] Differential Type Automated LAB HEMATOLOGY METHOD 10/06/2024 3:34 PM EDT [facility] Neutrophils % 48 % LAB HEMATOLOGY METHOD 10/06/2024 3:34 PM EDT [facility] Lymphocytes % 41 % LAB HEMATOLOGY METHOD 10/06/2024 3:34 PM EDT [facility] Monocytes % 8 % LAB HEMATOLOGY METHOD 10/06/2024 3:34 PM EDT [facility] Eosinophils % 1 % LAB HEMATOLOGY METHOD 10/06/2024 3:34 PM EDT [facility] Basophils % 1 % LAB HEMATOLOGY METHOD 10/06/2024 3:34 PM EDT [facility] Immature Granulocytes % 1 % LAB HEMATOLOGY METHOD 10/06/2024 3:34 PM EDT [facility] Neutrophils Absolute 5.30 1.60 - 6.10 10*3/uL LAB HEMATOLOGY METHOD 10/06/2024 3:34 PM EDT [facility] Lymphocytes Absolute 4.49(H) 1.20 - 3.90 10*3/uL LAB HEMATOLOGY METHOD 10/06/2024 3:34 PM EDT [facility] Monocytes Absolute 0.81 0.30 - 0.90 10*3/uL LAB HEMATOLOGY METHOD 10/06/2024 3:34 PM EDT [facility] Eosinophils Absolute 0.15 0.00 - 0.50 10*3/uL LAB HEMATOLOGY METHOD 10/06/2024 3:34 PM EDT [facility] Basophils Absolute 0.06 0.00 - 0.10 10*3/uL LAB HEMATOLOGY METHOD 10/06/2024 3:34 PM EDT [facility] Immature Granulocytes Absolute 0.05 0.00 - 0.06 10*3/uL LAB HEMATOLOGY METHOD 10/06/2024 3:34 PM EDT [facility] Blood Venous blood specimen / Unknown Venipuncture / Unknown 10/06/2024 3:16 PM EDT 10/06/2024 3:27 PM EDT Narrative [facility] - 10/06/2024 3:34 PM EDT Therapeutic decision making should be based on absolute values, rather than percentages. us Donnell Beverly MD LAB BLOOD ORDERABLES Lori perez Result [facility] [address] [place] [address] * Phosphorus (10/06/2024 3:16 PM EDT) Phosphorus, Plasma 4.1 2.5 - 4.5 mg/dL 10/06/2024 3:57 PM EDT [facility] Blood Venous blood specimen / Unknown Venipuncture / Unknown 10/06/2024 3:16 PM EDT 10/06/2024 3:27 PM EDT us Donnell Beverly MD LAB BLOOD ORDERABLES Lori l Result Performing Organization Address [facility]/ZIP Co de Phone Number [facility] [address] [place] [address] * (ABNORMAL) Magnesium (10/06/2024 3:16 PM EDT) Pathologist [facility] Magnesium, Plasma 1.8(L) 1.9 - 2.4 mg/dL 10/06/2024 3:57 PM EDT [facility] Blood Venous blood specimen / Unknown Venipuncture / Unknown 10/06/2024 3:16 PM EDT 10/06/2024 3:27 PM EDT us Donnell Beverly MD LAB BLOOD ORDERABLES Lori l Result Performing Organization Address [facility] Co de Phone Number [facility] [address] [place] [address] * (ABNORMAL) Blood gas panel, venous (10/06/2024 3:16 PM EDT) pH, Venous 7.40 7.32 - 7.43 LAB HEMATOLOGY METHOD 10/06/2024 3:30 PM EDT [facility] pCO2, Venous 39(L) 40 - 55 mmHg LAB HEMATOLOGY METHOD 10/06/2024 3:30 PM EDT [facility] pO2, Venous 72(H) 25 - 40 mmHg LAB HEMATOLOGY METHOD 10/06/2024 3:30 PM EDT [facility] SO2, Measured, Venous 95(H) 65 - 80 % LAB HEMATOLOGY METHOD 10/06/2024 3:30 PM EDT [facility] Base Excess, Venous -0.6 -2.0 - 3.0 mmol/L LAB HEMATOLOGY METHOD 10/06/2024 3:30 PM EDT [facility] Bicarbonate, Calculated, Venous 24 22 - 26 mmol/L LAB HEMATOLOGY METHOD 10/06/2024 3:30 PM EDT [facility] Hematocrit, Whole Blood 49.1 40.0 - 51.0 % LAB HEMATOLOGY METHOD 10/06/2024 3:30 PM EDT [facility] Sodium, Whole Blood 132(L) 136 - 145 mmol/L LAB HEMATOLOGY METHOD 10/06/2024 3:30 PM EDT [facility] Potassium, Whole Blood 4.1 3.6 - 4.9 mmol/L LAB HEMATOLOGY METHOD 10/06/2024 3:30 PM EDT [facility] Chloride, Whole Blood 98 97 - 107 mmol/L LAB HEMATOLOGY METHOD 10/06/2024 3:30 PM EDT [facility] Glucose, Whole Blood 437(H) 74 - 99 mg/dL LAB HEMATOLOGY METHOD 10/06/2024 3:30 PM EDT [facility] Lactate, Venous, Whole Blood 2.4(H) 0.5 - 2.2 mmol/L LAB HEMATOLOGY METHOD 10/06/2024 3:30 PM EDT [facility] Ionized Calcium, Whole Blood 5.4(H) 4.6 - 5.1 mg/dL LAB HEMATOLOGY METHOD 10/06/2024 3:30 PM EDT [facility] Blood Venous blood specimen / Unknown Venipuncture / Unknown 10/06/2024 3:16 PM EDT 10/06/2024 3:28 PM EDT us Donnell Beverly MD LAB BLOOD ORDERABLES Lori l Result Performing Organization Address City/State/[facility] Co de Phone Number [facility] [address] [place] [address] * (ABNORMAL) CMP (10/06/2024 3:16 PM EDT) Glucose, Plasma 446(H) 74 - 99 mg/dL 10/06/2024 3:57 PM EDT [facility] BUN, Plasma 15 8 - 23 mg/dL 10/06/2024 3:57 PM EDT [facility] Creatinine, Plasma 0.82 0.70 - 1.20 mg/dL 10/06/2024 3:57 PM EDT [facility] BUN/Creatinine Ratio 18 10/06/2024 3:57 PM EDT [facility] Sodium, Plasma 131(L) 136 - 145 mmol/L 10/06/2024 3:57 PM EDT [facility] Potassium, Plasma 4.3 3.6 - 4.9 mmol/L 10/06/2024 3:57 PM EDT [facility] Chloride, Plasma 95(L) 97 - 107 mmol/L 10/06/2024 3:57 PM EDT [facility] CO2, Plasma 21(L) 22 - 29 mmol/L 10/06/2024 3:57 PM EDT [facility] Anion Gap 15 6 - 16 mmol/L 10/06/2024 3:57 PM EDT [facility] Total Calcium, Plasma 10.4(H) 8.9 - 10.2 mg/dL 10/06/2024 3:57 PM EDT [facility] Total Protein 6.8 6.3 - 7.9 g/dL 10/06/2024 3:57 PM EDT [facility] Albumin, Plasma 4.1 3.5 - 5.2 g/dL 10/06/2024 3:57 PM EDT [facility] AST, Plasma 31 10 - 50 U/L 10/06/2024 3:57 PM EDT [facility] Comment:Hemolyzed, result ma y be falsely increased. ALT, Plasma 29 10 - 50 U/L 10/06/2024 3:57 PM EDT [facility] Alkaline Phosphatase, Plasma 99 40 - 115 U/L 10/06/2024 3:57 PM EDT [facility] Total Bilirubin, Plasma 0.4 0.2 - 1.1 mg/dL 10/06/2024 3:57 PM EDT [facility] eGFRcr 96.9 mL/min/1.7 3m*2 10/06/2024 3:57 PM EDT [facility] Comment:Reported eGFRcr in m L/min/1.73m2 is based the CKD-EPI 2020 equation that does not use a race coefficient. Blood Venous blood specimen / Unknown Venipuncture / Unknown 10/06/2024 3:16 PM EDT 10/06/2024 3:27 PM EDT us Donnell Beverly MD LAB BLOOD ORDERABLES Lori l Result [facility] [address] [place] [address] * XR Chest 1 View (10/06/2024 3:12 [...] culture not indicated 10/07/2024 12:01 AM EDT [facility] Comment: Previously prelim verified as [...] MD LAB URINE ORDERABLES Lori perez Result [facility] [address] [place] [address] * (ABNORMAL) Urinalysis with reflex microscopic (Culture NOT Included) (10/06/2024 3:06 PM EDT) Color, Urine Yellow LAB URINALYSIS - AUTOMATED METHOD 10/06/2024 3:25 PM EDT [facility] Clarity, Urine Clear LAB URINALYSIS - AUTOMATED METHOD 10/06/2024 3:25 PM EDT [facility] Spec [place], Urine >1.030(H) 1.005 - 1.030 LAB URINALYSIS - AUTOMATED METHOD 10/06/2024 3:25 PM EDT [facility] pH, Urine 6.0 5.0 - 8.0 LAB URINALYSIS - AUTOMATED METHOD 10/06/2024 3:25 PM EDT [facility] Protein, Urine Negative Negative mg/dL LAB URINALYSIS - AUTOMATED METHOD 10/06/2024 3:25 PM EDT [facility] Glucose, Urine >=1000(A) Negative mg/dL LAB URINALYSIS - AUTOMATED METHOD 10/06/2024 3:25 PM EDT [facility] Ketones, Urine Negative Negative mg/dL LAB URINALYSIS - AUTOMATED METHOD 10/06/2024 3:25 PM EDT [facility] Blood, Urine Negative Negative LAB URINALYSIS - AUTOMATED METHOD 10/06/2024 3:25 PM EDT [facility] Bilirubin, Urine Negative Negative LAB URINALYSIS - AUTOMATED METHOD 10/06/2024 3:25 PM EDT [facility] Urobilinogen, Urine 0.2 0.2 to 1.0 mg/dL LAB URINALYSIS - AUTOMATED METHOD 10/06/2024 3:25 PM EDT [facility] Leukocytes, Urine Negative Negative LAB URINALYSIS - AUTOMATED METHOD 10/06/2024 3:25 PM EDT [facility] Nitrite, Urine Negative Negative LAB URINALYSIS - AUTOMATED METHOD 10/06/2024 3:25 PM EDT [facility] Urine Urine specimen obtained by clean catch procedure / Unknown Non-blood Collection / Unknown 10/06/2024 3:06 PM EDT 10/06/2024 3:19 PM EDT us Donnell Beverly MD LAB URINE ORDERABLES Lori perez Result [facility] [address] [place] [address] from Last 3 Months Insurance [facility] Care Teams [employer] Supervisor Relationship Specialty Start Date End Date Efrem Lauren DO [address] [place] [id number] PCP - General 10/06/24
--- OUTSIDE RECORDS SUMMARY | 2024-12-06 19:45 | XMS_ITS | Encounter Summary ---
Author Organization [place] [address] [place] [address] Care Team Providers Care Associate Professor Of Church Music Name Role Phone Mila Lange MD Primary Care Provider [phone] Reason for Visit * Reason Onset Date Comments Central Patient Navigator Outreach 11/14/2024 AWV Encounter Details Date Type Department Care Team (Late st Contact Info) Description 11/14/2024 Patient Outreach SEP [facility] [address] [place], [place] [id number] Mila Lange MD [address] [place] [address] Central Patient Navigator Outreach (AWV) Social History Tobacco Use Types Packs/Day Years Used Date Smoking Tobacco: Every Day Cigarettes 1.5 55.8 Started: 02/07/1969 Smokeless Tobacco: Never Comments:Pt reports he is cu rrently smoking 0.5ppd-02/13/19-KR Pt states he is only smoking 3-4 cigarettes a day now - 01/19/24 KN Alcohol Use Standard Drinks/Week Comments Yes 4 (1 standard drink = 0.6 oz pure alcohol) pt reports drinking 4 shots of whiskey tonight [facility] Utilities Answer Date Recorded In the [...] Total Score 0 05/11/2024 [facility] of Occupat ional Health - Occupational Stress [...] needed for daily living? No [facility] IP Transportation Answer D ate Recorded [...] documented in this encounter Progress Notes * Genny Morataya - 11/14/2024 3:14 PM EDT Patient Outreach: Care Gap Outreach Attempt Count: 1st Care Gaps Addressed crm solution architect: Annual Wellness Visit Outcome:Left message to return call at Call back number: [phone] documented in this encounter Plan of Treatment [...] documented as of this encounter Care Teams Associate Professor Of Church Music Relationship Specialty Start Date End Date Mila Lange MD [address] [place] [address] PCP - General Family Medicine 06/22/11 documented as of this encounter
--- NOTE | 2024-12-06 20:26 | HMH.EDGENADL ---
Discharge Plan Disposition Patient Disposition: Home, Self-Care Condition: Good Prescriptions Prescriptions: New acyclovir 800 mg tablet 800 mg PO 5XD 7 Days Qty: 35 0RF Rx Instructions: space evenly during waking hours No Action omeprazole 40 mg capsule,delayed release(DR/EC) 40 mg PO DAILY Qty: 90 3RF Rx Instructions: Take on empty stomach daily. ranolazine 1,000 mg tablet extended release 12 hr 1,000 mg PO BID Patient Comments: TAKE ONE TABLET BY MOUTH TWICE DAILY (DME) Dexcom G7 Sensor Device See Rx Instructions .ROUTE .MEDSUPPLY Qty: 1 Rx Instructions: As directed albuterol sulfate [Ventolin HFA] 90 mcg/actuation HFA aerosol inhaler 2 inh inhalation QID PRN (Reason: shortness of breath or wheezing) 90 Days Qty: 8.5 3RF Trelegy Ellipta 100-62.5-25 mcg blister with device 1 inh inhalation DAILY 90 Days Qty: 90 2RF Januvia 50 mg tablet 50 mg PO DAILY Qty: 90 0RF (DME) Accu-Chek Guide test strips Strip MISCELLANEOUS (DME) lancets [Accu-Chek Softclix Lancets] Misc MISCELLANEOUS nitroglycerin 0.4 mg tablet, sublingual 0.4 mg sublingual Q5MINP PRN (Reason: Chest Pain) rosuvastatin 40 mg tablet 40 mg PO HS duloxetine 30 mg capsule,delayed release(DR/EC) 30 mg PO DAILY tamsulosin 0.4 mg capsule 0.4 mg PO HS Patient Comments: TAKE ONE CAPSULE BY MOUTH EVERY DAY AT BEDTIME midodrine 5 mg tablet 5 mg PO TID 30 Days Qty: 90 0RF prasugrel HCl [Effient] 10 mg Tablet 10 mg PO DAILY 30 Days Qty: 30 6RF aspirin 81 mg Capsule 81 mg PO DAILY 30 Days Qty: 30 6RF Referrals Follow up/Referrals: Efrem Lauren DO [Primary Care Provider, Family Practice] - See instructions Activity Restrictions/Add. Instructions Additional Instructions/Restrictions: Take the acyclovir 5 times a day for 7 days. Return to the emergency department if you have any significant worsening redness drainage or severe pain. If you have any vision changes or worsening swelling please return. You can use the eyedrops in the left eye for comfort. Follow-up with your regular doctor. You can take the benadryl or zyrtec as needed. The steroids will last for three days. Clinical Impressions Clinical Impression: Herpes zoster Print Language Print Language: Sammarinese Discharge ED Provider: Isis Wright General Adult HPI General Chief complaint: Allergic Reaction Stated complaint: AO 12-04 spider bites swollen face Time Seen by Provider: 12/06/24 20:00 Mode of Arrival: Ambulatory Source of Information: Patient Description of Symptoms (Recalled from ER Triage Doc. by RN): Pt states he was bitten in the head by a spider 2 days ago now having swelling in his face and throat History of Present Illness HPI narrative: Patient is a 64-year-old gentleman with a past medical history of diabetes, coronary artery disease with multiple stents in place who presents to the emergency department with concern for rash on his face with swelling. States that he was mowing the lawn and he took his hat off and he saw a little spiders in his hat patient states that he developed a rash on the left side of his face that is painful in nature patient is having some left eye pain. Patient denies any visual changes. Patient denies any headache. Patient denies any fevers. Patient denies any difficulty swallowing. Related Data Home Medications ?Medication ?Instructions ?Recorded ?Confirmed blood sugar diagnostic (Accu-Chek 01/17/24 12/06/24 Guide test strips) lancets (Accu-Chek Softclix 01/17/24 12/06/24 Lancets) duloxetine 30 mg capsule,delayed 30 mg PO DAILY 05/17/24 12/06/24 release nitroglycerin 0.4 mg sublingual 0.4 mg sublingual Q5MINP PRN Chest 05/17/24 12/06/24 tablet Pain rosuvastatin 40 mg tablet 40 mg PO HS 05/17/24 12/06/24 blood-glucose sensor (Bancore A/S G7 #1 ea 08/02/24 12/06/24 Sensor device) ranolazine 1,000 mg 1,000 mg PO BID 10/18/24 12/06/24 tablet,extended release,12 hr tamsulosin 0.4 mg capsule 0.4 mg PO HS 10/18/24 12/06/24 Previous Rx's ?Medication ?Instructions ?Recorded aspirin 81 mg capsule 81 mg PO DAILY 30 days #30 caps 08/28/24 prasugrel HCl 10 mg tablet 10 mg PO DAILY 30 days #30 tabs 08/28/24 (Effient) omeprazole 40 mg capsule,delayed 40 mg PO DAILY #90 caps 09/07/24 release midodrine 5 mg tablet 5 mg PO TID 30 days #90 tabs 10/19/24 albuterol sulfate 90 mcg/actuation 2 inh inhalation QID PRN shortness 10/31/24 aerosol inhaler (Ventolin HFA) of breath or wheezing 90 days #8.5 grams fluticasone fur. 100 mcg-umeclid 1 inh inhalation DAILY 90 days #90 10/31/24 62.5 mcg-vilant 25 mcg ea inhalat.powder (Trelegy Ellipta) sitagliptin phosphate 50 mg tablet 50 mg PO DAILY #90 tabs 12/05/24 (Januvia) acyclovir 800 mg tablet 800 mg PO 5XD 7 days #35 tabs 12/06/24 Allergies Allergy/AdvReac Type Severity Reaction Status Date / Time bee venom protein (honey bee) Allergy Anaphylaxis Verified 12/06/24 18:52 gabapentin Allergy Anaphylaxis Verified 12/06/24 18:52 insect venom Allergy Anaphylaxis Verified 12/06/24 18:52 [facility] Disclaimer: The information contained in this section may have been updated after the patient was seen, as this information can be updated by other users. Medical History Angina pectoris Coronary arteritis Leukocytosis Cystic-bullous disease of lung Abnormal electrocardiogram [ECG] [EKG] Coronary artery disease Enlarged prostate Dizziness Syncope Cystic lung, congenital History of pneumothorax Atrial fibrillation and flutter Presence of stent in LAD coronary artery Pericardial effusion without cardiac tamponade PNA (pneumonia) Diabetes GERD (gastroesophageal reflux disease) Pericarditis Angina at rest History of heart attack Hyperlipidemia Palpitations Hypertension Heart murmur Arrhythmia History of left heart catheterization (LHC) RBBB (right bundle branch block with left anterior fascicular block) Surgical History History of cardiac cath Hx of heart artery stent Previous back surgery Family History Other Family history of COPD (chronic obstructive pulmonary disease) Family history of hyperlipidemia Family history of hypertension Family history of myocardial infarction Family history of stroke Lung cancer Social History Smoking Status: Never smoker alcohol intake: former current occupational status: previously employed and disabled Travel in the last 8 weeks?: None Have you lived/traveled outside US in past 30 days?: No Contact w/someone who lives/traveled outside US past 30 days?: No Exposure to someone with infectious disease in past 14 days?: No Do you have a fever (greater than 100.4 F or 38 C)?: No Have you tested positive for COVID-19?: No Exposed to someone with COVID-19 in past 14 days?: No Do you have a sore throat?: No Do you have a cough?: No Do you have any weakness?: No Do you have any diarrhea?: No Are you experiencing any unusual bleeding?: No Do you have any muscle aches/pain?: No Do you have any abdominal pain?: No Are you experiencing loss of taste or smell?: No Other Medical History Have you received the Flu Vaccine for this season: No Have you received the Pneumonia Vaccine: No ROS Obtained: Yes All systems reviewed & no additional complaints except as documented and Yes Systems reviewed as appropriate & no additional complaints except as documented Physical Exam General General appearance: alert and in no apparent distress Head Head exam: atraumatic, normocephalic, normal inspection and other (skin lesions to the left forehead and top of the head in a V2 distribution, no ear or nose lesions) Eye Eye exam: Present normal appearance, PERRL and EOMI; Absent scleral icterus ENT ENT exam: Present normal exam and normal external ear exam Neck Neck exam: Present normal inspection and full ROM Chest Chest inspection: Present normal inspection and symmetric chest wall rise Respiratory Respiratory exam: Present normal lung sounds bilaterally; Absent respiratory distress or wheezes Cardiovascular Cardiovascular exam: Present regular rate, normal rhythm and normal heart sounds Abdominal Exam Abdominal exam: Present soft and distention; Absent tenderness, guarding or rebound Extremities Exam Extremities exam: Present normal inspection and full ROM Back Exam Back exam: Present normal inspection and full ROM Neurological Exam Neurological exam: Present alert and oriented X3 Psychiatric Psychiatric exam: Present normal affect and normal mood Skin Skin exam: Present warm and dry Medical Decision Making Medical Records Medical records reviewed: Yes I reviewed the patient's medical records. Screening: Per USPSTF and CDC recommendations, given the prevalence of disease in our region, it is our hospital?s policy to screen for HIV and viral Hepatitis for all patients aged 18 and over and those with ongoing risk factors. Moshe Inquiry Pt receiving controlled substance: No Vital Signs: 12/06/24 19:37 12/06/24 21:24 12/06/24 21:37 Temperature 98.0 F 98.6 F 98.6 F Temperature Source Oral Oral Oral Pulse Rate 66 66 Pulse Rate [Left Radial] 67 Respiratory Rate 20 18 18 Blood Pressure 134/98 H 134/98 H Blood Pressure [Right Arm] 152/95 H Blood Pressure Mean [Right Arm] 114 Blood Pressure Source [Right Arm] Automatic Cuff Blood Pressure Position Sitting Blood Pressure Position [Right Arm] Sitting 02 Sat by Pulse Oximetry 97 Oxygen Delivery Method Room Air Room Air Room Air Lab Data Lab results reviewed: Yes I reviewed the patient's lab results. Orders (Tests/Meds): ED MEDICATIONS Discontinued Medications Generic Name Dose Route Start Last Admin Trade Name Rafaelq PRN Reason Stop Dose Admin Acyclovir 800 mg 12/06/24 20:21 12/06/24 20:33 Acyclovir 400mg Tab PO 12/06/24 20:22 800 mg ONCE ONE Administration Dexamethasone 10 mg 12/06/24 20:19 12/06/24 20:33 Dexamethasone 4mg Tablet PO 12/06/24 20:20 10 mg ONCE ONE Administration Erythromycin 0.5 gm 12/06/24 21:23 12/06/24 21:28 Erythromycin Base 1 Gm Oint...G. OP 12/06/24 21:24 0.5 gm ONCE ONE Administration Famotidine 20 mg 12/06/24 20:19 12/06/24 20:32 Famotidine 20mg Tablet PO 12/06/24 20:20 20 mg ONCE ONE Administration Fluorescein Sodium 1 mg 12/06/24 20:22 12/06/24 21:29 Fluorescein Sodium 1mg Strip OP 12/06/24 20:23 1 mg ONCE ONE Administration Loratadine 10 mg 12/06/24 20:20 12/06/24 21:30 Loratadine 10mg Tablet PO 12/06/24 20:21 10 mg ONCE ONE Administration Tetracaine HCl 0 ml 12/06/24 20:22 12/06/24 21:31 Tetracaine 0.5% Opth Maggi 15ml OP 12/06/24 20:23 15 ml ONCE ONE Administration Medical Decision Narrative: Patient is a 64-year-old male with a past medical history of diabetes, high blood pressure who presented to the emergency department with concern for rash on his face as well as some erythema and swelling. On arrival, patient was hemodynamically stable with unremarkable vital signs. Differential includes but not limited to: Allergic reaction, spider bites or other insect bites, herpes zoster, cellulitis, amongst others. On exam, patient did have some mild erythema to the left side of the forehead with lesions that were only present on the left side of the forehead and on the top of the head. Patient had no lesions on his nose or in his ear. Patient did report some eye pain as well no erythema or conjunctival redness. Although insect bites or spider bites are possible my concern given the distribution is that it is herpes zoster. Patient's left eye was stained no dendritic lesions were seen. Patient's ear was examined there is no lesions and patient had no lesion on his nose. Patient was given a dose of dexamethasone in the emergency department. Patient drove himself therefore I did not give him Benadryl. Patient was given an H2 demetri. At this time given my concern for zoster, patient was given acyclovir in the emergency department. No concern for anaphylaxis at this time. Low concern for cellulitis. Patient was given a prescription for acyclovir patient was given erythromycin for comfort for his left eye. Patient was given strict return cautions for any progression of his symptoms. Patient was otherwise discharged home in stable condition, return precautions were discussed. Critical Care Critical Care Time Critical Care Time: No
[2024-12-06] MEDS: FAMOTIDINE 20MG TABLET 20 MG PO (20:32)
[2024-12-06] MEDS: DEXAMETHASONE 4MG TABLET 10 MG PO (20:33)
[2024-12-06] MEDS: ACYCLOVIR 400MG TAB 800 MG PO (20:33)
--- OUTSIDE RECORDS SUMMARY | 2024-12-06 20:44 | XMS_ITS | CCD ---
Author Organization Unknown Care Team Providers Care Health Technician Hearing Name Role Phone Unavailable Primary Care Provider Unavailabl e Unavailable Chronic Care Management Unavaila ble Summary Purpose DataExchange Insurance Providers Payer name Policy type / Coverage type Covered green party ID Effective Begin Date Effective End Date [facility] [id number] Unknown Unknown Family History Family History data not found Medication Administered No Medication Administered data Reason For Visit No Reason For Visit data Medical Equipment No Medical Equipment data Advance Directives No Advance Directive data
--- OUTSIDE RECORDS SUMMARY | 2024-12-06 20:44 | XMS_ITS | CCD ---
Author Organization Unknown Care Team Providers Care Patternmaker Plaster Name Role Phone Unavailable Primary Care Provider Unavailabl e Unavailable Chronic Care Management Unavaila ble Summary Purpose DataExchange Insurance Providers Payer name Policy type / Coverage type Covered libertarian ID Effective Begin Date Effective End Date [facility] [id number] Unknown Unknown Family History Family History data not found Medication Administered No Medication Administered data Reason For Visit No Reason For Visit data Medical Equipment No Medical Equipment data Advance Directives No Advance Directive data
[2024-12-06 21:24] VITALS: BP 134/98; PULSE 66; RESP 18; TEMP 37; O2SAT 98
[2024-12-06] MEDS: ERYTHROMYCIN BASE 1 GM OINT...G. 0.5 GM OP (21:28)
[2024-12-06] MEDS: FLUORESCEIN SODIUM 1MG STRIP 1 MG OP (21:29)
[2024-12-06] MEDS: LORATADINE 10MG TABLET 10 MG PO (21:30)
[2024-12-06] MEDS: TETRACAINE 0.5% OPTH SOL 15ML OP (21:31)
[2024-12-06 21:37] VITALS: BP 134/98; PULSE 66; RESP 18; TEMP 37; O2SAT 97
== END 2024-12-06 21:38 | disposition home or self-care (01) ==
PROVIDERS: Emergency Provider Student in an Organized Health Care Education/Training Program; PCP Internal Medicine
DX: B02.9 Zoster without complications (principal); H57.12 Ocular pain, left eye
CPT/HCPCS: 99283; J8540

== ENCOUNTER 2024-12-18 17:04 | Outpatient (CLI) | payer MEDICARE, SELFPAY ==
--- OUTSIDE RECORDS SUMMARY | 2024-12-18 17:06 | XMS_ITS | Clinical Summary ---
Author Organization [facility] Address [address] [place] [address] Phone Care Team Providers Care Almond Pan Finisher Name Role Phone Cornelia De Leon MD Conditions or Problems Problem Name Problem Code Onset Date Status Entry Date Provider Comment Standard Description Annotate *AFTERCARE FOLLOW SURGERY, NERVOUS SYSTEM NEC Z48.811 (ICD-10-CM) Active Cornelia De Leon MD Encounter for surgical aftercare following surgery on the nervous system RADICULOPATHY , LUMBAR REGION M54.16 (ICD-10-CM) Active Aakash Morfin Radiculopathy , lumbar region UNSPECIFIED PRE-OPERATIVE EXAMINATION 103584059 (SNOMED CT) Active Ritika Gonzalez History and physical examination for surgical clearance LUMBOSACRAL RADICULITIS 23627145 (SNOMED CT) Active Cornelia De Leon MD Lumbosacral radiculitis OVERWEIGHT 316994963 (SNOMED CT) Active Cornelia De Leon MD Overweight Medications Medication Instructions Start Date Stop Date Generic Name [facility] Provider HIBICLENS 4 % EXTERNAL LIQUID Wash the entire back and hip/buttock areas the night prior to the surgey CHLORHEXIDINE GLUCONATE 53530055677 Cornelia De Leon MD HIBICLEJUANITA 4 % EXTERNAL LIQUID Wash the entire back and hip/buttock areas the night prior to the surgey CHLORHEXIDINE GLUCONATE 57868167978 Cornelia De Leon MD ACCU-CHEK FASTCLIX LANCETS Non-Luke LANCETS [id number] Cornelia De Leon MD LISINOPRIL 20 MG TABS 1 daily Non- LISINOPRIL 18722917152 Cornelia De Leon MD SILDENAFIL CITRATE 20 MG TABS 1 tid Non- SILDENAFIL CITRATE 99094975010 Cornelia De Leon MD TAMSULOSIN HCL 0.4 MG CAPS 1 qhs Non- TAMSULOSIN HCL 23717482845 Cornelia De Leon MD BREO ELLIPTA 100-25 MCG/ACT AEPB 1 daily Non- FLUTICASONE FUROATE-VILANTER OL 33554937175 Cornelia De Leon MD DILTIAZEM HCL ER COATED BEADS 120 MG [id number] 1 daily Non- DILTIAZEM HCL COATED BEADS 12020513685 Cornelia De Leon MD METOPROLOL SUCCINATE ER 100 MG [id number] 1 daily Non- METOPROLOL SUCCINATE 23698461344 Cornelia De Leon MD ATORVASTATIN CALCIUM 40 MG TABS 1 qhs Non- ATORVASTATIN CALCIUM 51092821589 Cornelia De Leon MD STRESS PLUS ZINC TABS 1 daily Non- B [id number] 09030699169 Cornelia De Leon MD FENOFIBRATE MICRONIZED 134 MG CAPS 1 daily Non- FENOFIBRATE MICRONIZED 78359160859 Cornelia De Leon MD TIZANIDINE HCL 4 MG TABS 1 qhs - TIZANIDINE HCL 55344490504 Cornelia De Leon MD NORTRIPTYLINE HCL 25 MG CAPS 1 qhs Non- NORTRIPTYLINE HCL 58872324241 Cornelia De Leon MD CO Q 10 CAPS 1 daily Non- COENZYME Q10 CAPS 23982322374 Cornelia De Leon MD OXYCODONE-ACETAM INOPHEN 5-325 MG TABS 1 po q 6 hours Non- OXYCODONE-ACETAM INOPHEN 01947975266 Cornelia De Leon MD OMEPRAZOLE 40 MG CPDR 1 daily Non- OMEPRAZOLE 64146599363 Cornelia De Leon MD METFORMIN HCL ER 500 MG [id number] 1 daily Non- METFORMIN HCL 88508464251 Cornelia De Leon MD ASPIRIN ADULT LOW DOSE 81 MG TBEC 1 daily Non-Tellez ASPIRIN 06377177192 Cornelia De Leon MD FUROSEMIDE 40 MG TABS 1 daily Non-Tellez FUROSEMIDE 63024081775 Cornelia De Leon MD POTASSIUM CHLORIDE ZULEMA ER 20 MEQ CR-TABS 1 daily Non-Tellez POTASSIUM CHLORIDE ZULEMA CR 61364281893 Cornelia De Leon MD BACLOFEN TABS 1 tid Non-Tellez BACLOFEN TABS 62180599823 Cornelia De Leon MD Medications Administered No [...] Procedures Code Procedure Name Date Entry Date 27159 MRI Thoracic Spine 1 Vital Signs Date [...]
--- OUTSIDE RECORDS SUMMARY | 2024-12-18 17:06 | XMS_ITS ---
Author Organization [facility] Care Team Providers Care Aircraft Log Clerk Name Role Phone Zeferino Flores Unavailable Unavailable Miroslava Manuel Unavailable Unavailable Alley Padilla Unavailable Unavailable Allergies and adverse reactions Code CodeSystem Substance Reaction Severity StartDate Concern Status 65720 RXNORM Gabapentin Unknown 11/16/[address] Wasp venom Unknown 11/16/2023 active Care Team Name Role Address Phone Organization Dates Zeferino Flores PCP [address], [place], [address], [place] (Office): : [facility] 11/17/2023 - 12/04/2023 Miroslava Manuel [address] [place], [address], [place] (Cell): [facility] 11/17/2023 - 12/04/2023 Alley Padilla [address] [place], [address], [place] (Fax): [facility] 11/17/2023 - 12/04/2023 Immunizations Immunization Status Vaccine [...] cancelled Pneumococcal conjugate vaccine 20-valent (PCV20), polysaccharide [id number] conjugate, adjuvant, preservative free 216 CVX created date: 11/19/2023 consent date: 11/18/2023 Educated by BEAU HERNÁNDEZ on 11/17/2023 Pneumovax (PCV13, PCV15, or PCV20) completed Pneumococcal conjugate vaccine 20-valent (PCV20), polysaccharide EHB153 conjugate, adjuvant, preservative free 216 CVX created [...] ELEVATED WHITE BLOOD CELL COUNT, UNSPECIFIED 11/21/[address] active 2 BENIGN PROSTATIC HYPERPLASIA WITH LOWER URINARY TRACT SYMPTOMS 11/17/[address] active 3 MAJOR DEPRESSIVE DISORDER, SINGLE EPISODE, UNSPECIFIED 11/17/[address] active 4 AGE-RELATED PHYSICAL DEBILITY 11/16/[address] active 5 EMPHYSEMA, UNSPECIFIED 11/16/[address] active 6 GASTRO-ESOPHAGEAL REFLUX DISEASE WITHOUT ESOPHAGITIS 11/16/[address] active 7 HYPERTENSION SECONDARY TO ENDOCRINE DISORDERS 11/16/[address] active 8 OTHER CHEST PAIN 11/16/[address] a ctive 9 OTHER INTERVERTEBRAL DISC DEGENERATION, LUMBAR REGION WITHOUT MENTION OF LUMBAR BACK PAIN OR LOWER EXTREMITY PAIN 11/16/[address] active 10 OTHER LOW BACK PAIN 11/16/[address] active 11 RESTLESS LEGS SYNDROME 11/16/[address] active 12 RHEUMATOID ARTHRITIS, UNSPECIFIED 11/16/[address] active 13 TYPE 2 DIABETES MELLITUS WITH OTHER CIRCULATORY COMPLICATIONS 11/16/[address] active Reason for Referral No Reasons for Referral Entered Social History Social History Observation Description Start Date End Date Code Code System Current Smoking Status Tobacco smoking consumption unknown 635325457 SNOMED CT Sex Assigned At Male 1960 34771-6 [facility] Gender Identity Sexual Orientation Vital Signs Code Code System Vitals Name Values and Units Timing Information 9279-1 [facility] Respiratory Rate Value=18.0 Units=/m in 12/04/2023 8462-4 LOINC Blood Pressure-Diastolic Value=90 Un its=mmHg 12/04/2023 8480-6 LOINC Blood Pressure-Systolic Hepur=968 Un its=mmHg 12/04/2023 8310-5 [facility] Body Temperature Value=97.7 Units= F 12/04/2023 8867-4 LOINC Heart rate Value=73.0 Units=/min 04963-9 [facility] O2 % BldC Oximetry Value=97.0 Units= % 12/04/2023 2339-0 LOINC Blood Sugar Dbxoh=442.0 Units=mg/dL 12/04/2023 66895-4 LOINC Pain Level Value=2.0 12/04/2023 30677-8 LOINC Weight Izmew=126.2 Units=Lbs 8302-2 LOINC Height Value=72.0 Units=Inches 11/17/2023
--- OUTSIDE RECORDS SUMMARY | 2024-12-18 17:06 | XMS_ITS | Encounter Summary ---
Author Organization [place] [address] Care Team Providers Care Centrex Radio Operator Name Role Phone Mila Lange MD Primary Care Provider [phone] Reason for Visit * Reason Onset Date Comments Central Patient Navigator Outreach 11/14/2024 AWV Encounter Details Date Type Department Care Team (Late st Contact Info) Description 11/14/2024 Patient Outreach SEP [facility] [address] [place], [place] [id number] Mila Lange MD [address] [place] [address] Central Patient Navigator Outreach (AWV) Social History Tobacco Use Types Packs/Day Years Used Date Smoking Tobacco: Every Day Cigarettes 1.5 55.9 Started: [birth year]/07/1971 Smokeless Tobacco: Never Comments:Pt reports he is cu rrently smoking 0.5ppd-02/13/19-KR Pt states he is only smoking 3-4 cigarettes a day now - 01/19/24 KN Alcohol Use Standard Drinks/Week Comments Yes 4 (1 standard drink = 0.6 oz pure alcohol) pt reports drinking 4 shots of whiskey tonight [facility] Utilities Answer Date Recorded In the [...] Date Recorded PHQ-2 Total Score 0 05/11/2024 [facility] Occupat ional Health - Occupational Stress [...] things needed for daily living? No 01/12/2023 [facility] IP Transportation [...] Outreach Attempt Count: 1st Care Gaps Addressed inbound sales consultant: Annual Wellness Visit Outcome:Left message to return call at Call back number: [phone] documented in this encounter Plan of Treatment [...] on track( 3:14 PM EST) No Nery cMcartney RN Patient will limit daily intake of [...] Result Component 7.2( 1:37 PM EST) No Mial Lange MD documented as of this encounter Visit Diagnoses Not on filedocumented in this encounter Additional Health Concerns Assessment Noted Time A fall risk assessment has been complete d for the patient 10/06/2023 2:50 PM EDT documented as of this encounter Care Teams Centrex Radio Operator Relationship Specialty Start Date End Date Mila Lange MD [address] [place] [address] PCP - General Family Medicine 06/22/11 documented as of this encounter
--- OUTSIDE RECORDS SUMMARY | 2024-12-18 17:06 | XMS_ITS | Clinical Summary ---
Author Organization Healthcare Address [address] 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 Name Role Phone Efrem Lauren DO Primary Care Provider [phone] Allergies Active Allergy Reactions Criticality Noted Date [...] EDT Emergency [facility] Emergency Department [address] [place] [address] Philippe Bernal MD Chest pain, unspecified type [...] Screening 1958 [facility]-Medicare Annual Wellness (AWV) 1958 [facility]-Infant/Child/Adol SDOH Screenings 1958 [facility]-Obesity Intervention 1964 Diabetes: Dental Exam 1968 [facility]- SDOH Screenings 1976 [facility]-Adult SDOH Screenings 1976 CT Colonography 08/10/2003 Colonoscopy 08/10/2003 FIT-DNA 08/10/2003 FIT 08/10/2003 FOBT 08/10/2003 Sigmoidoscopy 08/10/2003 [facility]-Colorectal Cancer Screening 08/10/2003 [facility]-Zoster Vaccines (1 of 2) 2008 [facility]-RSV Vaccine: 60+ Years or (1 - Risk 60-74 years 1-dose series) 2018 [id number] Vaccine (1 - season) 2024 [facility]-Influenza Vaccine [...] Comment 10/06/2024 6:50 PM EDT [facility] Director Bioinformatics ID Paulina Gaspar 10/06/2024 6:50 PM EDT HEALTH[facility]ARE LAB Device ID [id number] 10/06/2024 6:50 PM EDT [facility]ALTH[facility] LAB Specimen Type POC Capillary 10/06/2024 6:50 PM EDT [facility] Blood Capillary blood specimen / Unknown 10/06/2024 6:49 PM EDT 10/06/2024 6:50 PM EDT us Philippe Bernal MD LAB POINT OF CARE TE ST DOCKED DEVICE UNSOLICITED RESULTS Final Result [facility] [address] [place] [address] * EKG now - STAT (adult) (10/06/2024 5:56 PM EDT) Only the most recent of2 resultswithin the time period is included. EKG DIAGNOSIS CLASS Abnormal MUSE ECG Ventricular Rate 72 BPM MUSE ECG Atrial Rate 72 BPM MUSE ECG MT Interval 170 ms MUSE ECG QRSD Interval 134 ms MUSE ECG QT Interval 460 ms MUSE ECG QTC Interval 503 ms MUSE ECG P [place] 23 degrees MUSE ECG R [place] -69 degrees MUSE ECG T Wave [place] -3 degrees MUSE ECG Diagnosis Normal sinus rhythm MUSE ECG Diagnosis Left axis deviation MUSE ECG Diagnosis Right bundle branch block MUSE ECG Diagnosis Abnormal ECG MUSE ECG Diagnosis MUSE ECG Diagnosis Confirmed by Albino Reveles ([id number]) on 10/07/2024 10:14:31 AM MUSE ECG 10/06/2024 5:56 PM EDT 10/07/2024 10:14 AM EDT us Philippe Bernal MD ECG ORDERABLES Final Result MUSE ECG * Troponin T, High Sensitivity, 2 Hour, Plasma (10/06/2024 5:40 PM EDT) Troponin T, High Sensitivity, 2 Hour 12 <19 ng/L 10/06/2024 6:23 PM EDT [facility] Blood Venous blood specimen / Unknown Venipuncture / Unknown 10/06/2024 5:40 PM EDT 10/06/2024 5:54 PM EDT us Donnell Beverly MD LAB BLOOD ORDERABLES Lori l Result [facility] [address] [place] [address] * Anti Xa Level Unfractionated Heparin (10/06/2024 4:17 PM EDT) Anti Xa Level Unfractionated Heparin <0.11 <1.00 IU/mL LAB COAGULATION METHOD 10/06/2024 4:53 PM EDT [facility] Blood Venous blood specimen / Unknown Venipuncture / Unknown 10/06/2024 4:17 PM EDT 10/06/2024 4:27 PM EDT Narrative [facility] - 10/06/2024 4:53 PM EDT Therapeutic Range: UFH Full Dose and ACS/HI protocols*: 0.30 - 0.70 IU/mL UFH Low Dose protocol*: 0.25 - 0.50 IU/mL UFH prophylaxis: Not established us Philippe Bernal MD LAB BLOOD ORDERABLES Final Res ult [facility] [address] [place] [address] * CT Angio Chest (10/06/2024 3:52 PM EDT) Anatomical Region Laterality Modality Chest Computed Tomogra phy Impressions 10/06/2024 4:43 PM EDT 1. No acute traumatic aortic injury. 2. No acute findings in the chest. 3. Lower lobe predominant cystic change probably represents bullae in the setting of mild emphysema, however cystic lung disease is also possible, in which case lymphocytic interstitial pneumonia or Mrco-Qwew-Nfna syndrome are the most likely cause cysts [...] possible,in which case lymphocytic interstitial pneumonia or Lobj-Kqfi-Hedcgqyxwucz are the most likely cause cysts in [...] 13 <19 ng/L 10/06/2024 3:57 PM EDT [facility] Blood Venous blood specimen / Unknown Venipuncture / Unknown 10/06/2024 3:16 PM EDT 10/06/2024 3:27 PM EDT us Donnell Beverly MD LAB BLOOD ORDERABLES Lori l Result [facility] [address] [place] [address] * Beta-Hydroxybutyric Acid (10/06/2024 3:16 PM EDT) Beta-Hydroxybut yric Acid, Plasma 0.21 <=0.27 mmol/L 10/06/2024 4:19 PM EDT [facility] Blood Venous blood specimen / Unknown Venipuncture / Unknown 10/06/2024 3:16 PM EDT 10/06/2024 3:27 PM EDT us Donnell Beverly MD LAB BLOOD ORDERABLES Lori l Result Performing Organization Address City/[facility]/[place] [address] * BNP (10/06/2024 3:16 PM EDT) N-Terminal, PROBNP, Plasma <50 0 - 899 pg/mL 10/06/2024 3:57 PM EDT [facility] Blood Venous blood specimen / Unknown Venipuncture / Unknown 10/06/2024 3:16 PM EDT 10/06/2024 3:27 PM EDT us Donnell Beverly MD LAB BLOOD ORDERABLES Lori l Result Performing Organization Address [facility] [place] [address] * PT-INR (10/06/2024 3:16 PM EDT) Pathologist [facility] [place] Prothrombin Time 12.4 12.0 - 14.3 sec LAB COAGULATION METHOD 10/06/2024 3:53 PM EDT [facility] INR 0.9 0.9 - 1.1 LAB COAGULATION METHOD 10/06/2024 3:53 PM EDT [facility] Blood Venous blood specimen / Unknown Venipuncture / Unknown 10/06/2024 3:16 PM EDT 10/06/2024 3:26 PM EDT Narrative [facility] - 10/06/2024 3:53 PM EDT OPTIMAL INR RANGES FOR PATIENT ON ORAL ANTICOAGULANT THERAPY Prevention of venous thromboembolism INR 2.0 to 3.0 In patients with heart disease: Atrial fibrillation INR 2.0 to 3.0 Valvular heart disease INR 2.0 to 3.0 Tissue heart valves INR 2.0 to 3.0 Mechanical prosthetic valves INR 2.5 to 3.5 Prevention of recurrent HI INR 2.5 to 3.5 Donnell Beverly MD LAB BLOOD ORDERABLES Lori l Result Performing Organization Address City/[facility]/ZIP Co de Phone Number [facility] [address] [place] [address] * (ABNORMAL) CBC w/diff (10/06/2024 3:16 PM EDT) WBC Count 10.86(H) 3.70 - 10.30 10*3/uL LAB HEMATOLOGY METHOD 10/06/2024 3:34 PM EDT [facility] RBC Count 5.08 4.60 - 6.10 10*6/uL LAB HEMATOLOGY METHOD 10/06/2024 3:34 PM EDT [facility] HGB 15.9 13.7 - 17.5 g/dL LAB HEMATOLOGY METHOD 10/06/2024 3:34 PM EDT [facility] HCT 44.4 40.0 - 51.0 % LAB HEMATOLOGY METHOD 10/06/2024 3:34 PM EDT [facility] Platelet Count 217 155 - 369 10*3/uL LAB HEMATOLOGY METHOD 10/06/2024 3:34 PM EDT [facility] MCV 87 79 - 98 fL LAB HEMATOLOGY METHOD 10/06/2024 3:34 PM EDT [facility] MCH 31.3 26.0 - 32.0 pg LAB HEMATOLOGY METHOD 10/06/2024 3:34 PM EDT [facility] MCHC 35.8(H) 30.7 - 35.5 g/dL LAB HEMATOLOGY METHOD 10/06/2024 3:34 PM EDT [facility] RDW 12.4 11.5 - 14.5 % LAB HEMATOLOGY METHOD 10/06/2024 3:34 PM EDT [facility] MPV 10.4 8.8 - 12.5 fL LAB HEMATOLOGY METHOD 10/06/2024 3:34 PM EDT [facility] nRBC 0.0 <=0.0 per 100 WBCs LAB HEMATOLOGY METHOD 10/06/2024 3:34 PM EDT [facility] Differential Type Automated LAB HEMATOLOGY METHOD 10/06/2024 3:34 PM EDT [facility] Neutrophils % 48 % LAB HEMATOLOGY METHOD 10/06/2024 3:34 PM EDT [facility] Lymphocytes % 41 % LAB HEMATOLOGY METHOD 10/06/2024 3:34 PM EDT [facility] Monocytes % 8 % LAB HEMATOLOGY METHOD 10/06/2024 3:34 PM EDT [facility] Eosinophils % 1 % LAB HEMATOLOGY METHOD 10/06/2024 3:34 PM EDT [facility] Basophils % 1 % LAB HEMATOLOGY METHOD 10/06/2024 3:34 PM EDT [facility] Immature Granulocytes % 1 % LAB HEMATOLOGY METHOD 10/06/2024 3:34 PM EDT [facility] Neutrophils Absolute 5.30 1.60 - 6.10 10*3/uL LAB HEMATOLOGY METHOD 10/06/2024 3:34 PM EDT [facility] Lymphocytes Absolute 4.49(H) 1.20 - 3.90 10*3/uL LAB HEMATOLOGY METHOD 10/06/2024 3:34 PM EDT [facility] Monocytes Absolute 0.81 0.30 - 0.90 10*3/uL LAB HEMATOLOGY METHOD 10/06/2024 3:34 PM EDT [facility] Eosinophils Absolute 0.15 0.00 - 0.50 10*3/uL LAB HEMATOLOGY METHOD 10/06/2024 3:34 PM EDT [facility] Basophils Absolute 0.06 0.00 - 0.10 10*3/uL LAB HEMATOLOGY METHOD 10/06/2024 3:34 PM EDT [facility] Immature Granulocytes Absolute 0.05 0.00 - 0.06 10*3/uL LAB HEMATOLOGY METHOD 10/06/2024 3:34 PM EDT [facility] Blood Venous blood specimen / Unknown Venipuncture / Unknown 10/06/2024 3:16 PM EDT 10/06/2024 3:27 PM EDT Narrative [facility] - 10/06/2024 3:34 PM EDT Therapeutic decision making should be based on absolute values, rather than percentages. us Donnell Beverly MD LAB BLOOD ORDERABLES Lori perez Result [facility] [address] [place] [address] * Phosphorus (10/06/2024 3:16 PM EDT) Phosphorus, Plasma 4.1 2.5 - 4.5 mg/dL 10/06/2024 3:57 PM EDT [facility] Blood Venous blood specimen / Unknown Venipuncture / Unknown 10/06/2024 3:16 PM EDT 10/06/2024 3:27 PM EDT us Donnell Beverly MD LAB BLOOD ORDERABLES Lori l Result Performing Organization Address [facility]/ZIP Co de Phone Number [facility] [address] [place] [address] * (ABNORMAL) Magnesium (10/06/2024 3:16 PM EDT) Pathologist [facility] [place] Magnesium, Plasma 1.8(L) 1.9 - 2.4 mg/dL 10/06/2024 3:57 PM EDT [facility] Blood Venous blood specimen / Unknown Venipuncture / Unknown 10/06/2024 3:16 PM EDT 10/06/2024 3:27 PM EDT us Donnell Beverly MD LAB BLOOD ORDERABLES Lori l Result Performing Organization Address [facility] Co de Phone Number [facility] [address] [place] [address] * (ABNORMAL) Blood gas panel, venous (10/06/2024 3:16 PM EDT) pH, Venous 7.40 7.32 - 7.43 LAB HEMATOLOGY METHOD 10/06/2024 3:30 PM EDT [facility] pCO2, Venous 39(L) 40 - 55 mmHg LAB HEMATOLOGY METHOD 10/06/2024 3:30 PM EDT [facility] pO2, Venous 72(H) 25 - 40 mmHg LAB HEMATOLOGY METHOD 10/06/2024 3:30 PM EDT [facility] SO2, Measured, Venous 95(H) 65 - 80 % LAB HEMATOLOGY METHOD 10/06/2024 3:30 PM EDT [facility] Base Excess, Venous -0.6 -2.0 - 3.0 mmol/L LAB HEMATOLOGY METHOD 10/06/2024 3:30 PM EDT [facility] Bicarbonate, Calculated, Venous 24 22 - 26 mmol/L LAB HEMATOLOGY METHOD 10/06/2024 3:30 PM EDT [facility] Hematocrit, Whole Blood 49.1 40.0 - 51.0 % LAB HEMATOLOGY METHOD 10/06/2024 3:30 PM EDT [facility] Sodium, Whole Blood 132(L) 136 - 145 mmol/L LAB HEMATOLOGY METHOD 10/06/2024 3:30 PM EDT [facility] Potassium, Whole Blood 4.1 3.6 - 4.9 mmol/L LAB HEMATOLOGY METHOD 10/06/2024 3:30 PM EDT [facility] Chloride, Whole Blood 98 97 - 107 mmol/L LAB HEMATOLOGY METHOD 10/06/2024 3:30 PM EDT [facility] Glucose, Whole Blood 437(H) 74 - 99 mg/dL LAB HEMATOLOGY METHOD 10/06/2024 3:30 PM EDT [facility] Lactate, Venous, Whole Blood 2.4(H) 0.5 - 2.2 mmol/L LAB HEMATOLOGY METHOD 10/06/2024 3:30 PM EDT [facility] Ionized Calcium, Whole Blood 5.4(H) 4.6 - 5.1 mg/dL LAB HEMATOLOGY METHOD 10/06/2024 3:30 PM EDT [facility] Blood Venous blood specimen / Unknown Venipuncture / Unknown 10/06/2024 3:16 PM EDT 10/06/2024 3:28 PM EDT us Donnell Beverly MD LAB BLOOD ORDERABLES Lori l Result Performing Organization Address City/State/[facility] Co de Phone Number [facility] [address] [place] [address] * (ABNORMAL) CMP (10/06/2024 3:16 PM EDT) Glucose, Plasma 446(H) 74 - 99 mg/dL 10/06/2024 3:57 PM EDT [facility] BUN, Plasma 15 8 - 23 mg/dL 10/06/2024 3:57 PM EDT [facility] Creatinine, Plasma 0.82 0.70 - 1.20 mg/dL 10/06/2024 3:57 PM EDT [facility] BUN/Creatinine Ratio 18 10/06/2024 3:57 PM EDT [facility] Sodium, Plasma 131(L) 136 - 145 mmol/L 10/06/2024 3:57 PM EDT [facility] Potassium, Plasma 4.3 3.6 - 4.9 mmol/L 10/06/2024 3:57 PM EDT [facility] Chloride, Plasma 95(L) 97 - 107 mmol/L 10/06/2024 3:57 PM EDT [facility] CO2, Plasma 21(L) 22 - 29 mmol/L 10/06/2024 3:57 PM EDT [facility] Anion Gap 15 6 - 16 mmol/L 10/06/2024 3:57 PM EDT [facility] Total Calcium, Plasma 10.4(H) 8.9 - 10.2 mg/dL 10/06/2024 3:57 PM EDT [facility] Total Protein 6.8 6.3 - 7.9 g/dL 10/06/2024 3:57 PM EDT [facility] Albumin, Plasma 4.1 3.5 - 5.2 g/dL 10/06/2024 3:57 PM EDT [facility] AST, Plasma 31 10 - 50 U/L 10/06/2024 3:57 PM EDT [facility] Comment:Hemolyzed, result ma y be falsely increased. ALT, Plasma 29 10 - 50 U/L 10/06/2024 3:57 PM EDT [facility] Alkaline Phosphatase, Plasma 99 40 - 115 U/L 10/06/2024 3:57 PM EDT [facility] Total Bilirubin, Plasma 0.4 0.2 - 1.1 mg/dL 10/06/2024 3:57 PM EDT [facility] eGFRcr 96.9 mL/min/1.7 3m*2 10/06/2024 3:57 PM EDT [facility] Comment:Reported eGFRcr in m L/min/1.73m2 is based the CKD-EPI 2020 equation that does not use a race coefficient. Blood Venous blood specimen / Unknown Venipuncture / Unknown 10/06/2024 3:16 PM EDT 10/06/2024 3:27 PM EDT us Donnell Beverly MD LAB BLOOD ORDERABLES Lori l Result [facility] [address] [place] [address] * XR Chest 1 View (10/06/2024 3:12 [...] culture not indicated 10/07/2024 12:01 AM EDT [facility] Comment: Previously prelim verified as [...] Donnell Beverly MD LAB URINE ORDERABLES Lori preez Result [facility] [address] [place] [address] * (ABNORMAL) Urinalysis with reflex microscopic (Culture NOT Included) (10/06/2024 3:06 PM EDT) Color, Urine Yellow LAB URINALYSIS - AUTOMATED METHOD 10/06/2024 3:25 PM EDT [facility] Clarity, Urine Clear LAB URINALYSIS - AUTOMATED METHOD 10/06/2024 3:25 PM EDT [facility] Spec Otter, Urine >1.030(H) 1.005 - 1.030 LAB URINALYSIS - AUTOMATED METHOD 10/06/2024 3:25 PM EDT [facility] pH, Urine 6.0 5.0 - 8.0 LAB URINALYSIS - AUTOMATED METHOD 10/06/2024 3:25 PM EDT [facility] Protein, Urine Negative Negative mg/dL LAB URINALYSIS - AUTOMATED METHOD 10/06/2024 3:25 PM EDT [facility] Glucose, Urine >=1000(A) Negative mg/dL LAB URINALYSIS - AUTOMATED METHOD 10/06/2024 3:25 PM EDT [facility] Ketones, Urine Negative Negative mg/dL LAB URINALYSIS - AUTOMATED METHOD 10/06/2024 3:25 PM EDT [facility] Blood, Urine Negative Negative LAB URINALYSIS - AUTOMATED METHOD 10/06/2024 3:25 PM EDT [facility] Bilirubin, Urine Negative Negative LAB URINALYSIS - AUTOMATED METHOD 10/06/2024 3:25 PM EDT [facility] Urobilinogen, Urine 0.2 0.2 to 1.0 mg/dL LAB URINALYSIS - AUTOMATED METHOD 10/06/2024 3:25 PM EDT [facility] Leukocytes, Urine Negative Negative LAB URINALYSIS - AUTOMATED METHOD 10/06/2024 3:25 PM EDT [facility] Nitrite, Urine Negative Negative LAB URINALYSIS - AUTOMATED METHOD 10/06/2024 3:25 PM EDT [facility] Urine Urine specimen obtained by clean catch procedure / Unknown Non-blood Collection / Unknown 10/06/2024 3:06 PM EDT 10/06/2024 3:19 PM EDT us Donnell Beverly MD LAB URINE ORDERABLES Lori perez Result [facility] [address] [place] [address] from Last 3 Months Insurance [facility] MEDICARE Care Teams Heel Top Lift Splitter Relationship Specialty Start Date End Date Efrem Lauren DO [address] [place] [id number] PCP - General 10/06/24
--- OUTSIDE RECORDS SUMMARY | 2024-12-18 17:07 | XMS_ITS | Clinical Summary ---
[facility] Organization [facility] Address [address] [place] [address] Phone Care Team Providers Care Sba Underwriter Name Role Phone Mila Lange MD Primary Care Provider [phone] Allergies Active Allergy Reactions Criticality Noted Date Comments Gabapentin Swelling 05/02/2022 Oxhavwrl-6-Hd3 Antimigraine Agents Other (See Comments) 01/19/2024 Contraindicated [...] 01/15/20 Active nalOXone (NARCAN) 4 mg/actuation [employer], Non-Aerosol 0.1 mL by Nasal route as [...] (Inject under the skin) 46 Units nightly. [place] too please. May increase 2 units per day until fasting blood sugar is 80-110. Max potential is 100 units 18 mL 3 01/25/20 Active Additional Information Patient taking differently: 36 UnitsSubcutaneous NIGHTLY, [place] too please. May increase 2 units per [...] 2 03/23/19 25 Active DEXCOM G7 SENSOR [facility] DeviceIndicatio ns:Type 2 diabetes mellitus with hyperglycemia, without long-term current use of insulin ([facility]) 1 Each by [facility].(Non-Drug; Combo Route) route every 10 days. Follow [...] 04/25/19 25 Active ACCU-CHEK GUIDE TEST STRIPS [facility] StripIndication s:Type 2 diabetes mellitus without complication, without long-term current use of insulin ([facility]) TEST BLOOD SUGAR TWICE DAILY 100 Strip 04/26/19 25 Active ACCU-CHEK SOFTCLIX LANCETS [facility] USE TO TEST BLOOD SUGAR [...] migh t be different from the original. [facility] - Dr. 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 A1c 9.7 on [...] (07/29/2021): Added automatically from request for surgery [id number] Assessment & Plan (02/02/2024 12:58 PM EST): History of PR Consider baby aspirin, consider statin PAF (paroxysmal [...] PM EST): On beta-demetri, not on anticoagulation 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 Assessment & Plan (01/21/2024 1:41 PM [...] (02/02/2024 12:58 PM EST): Not on treatment 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 History of pneumothorax 09/04/2014 Overview (09/04/2014): [...] (02/02/2024 12:58 PM EST): Not on treatment 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 Tobacco use Assessment & Plan (02/02/2024 [...] Care Team Description 11/14/2024 Patient Outreach SEP [facility] [address] [place] [address] Mila Lange MD Central Patient Navigator Outreach (AWV) 09/18/2024 Patient Outreach SEP [facility] [address] [place] [address] Marilynn Bates, [facility] Medication Management from Last 3 Months Immunizations [...] with pleuradisis; Surgeon: Frederick Holland MD; Location: [facility]; Service: General LUNG SURGERY 2010, [...] INTERVENTION(PCI) 07/31/2021 N/A CORONARY PERCUTANEOUS INTERVENTION (PCI) [[id number]]; Surgeon: Chaz Moya MD; Location: [facility]; Service: Cardiac Medical devices from [...] Hyperlipidemia COPD (chronic obstructive pu lmonary disease) ([facility]) inhalers. O2 @ 2l/nc @ HS Blood circulation, collateral fe et/ankles swell, takes Lasix Heartburn Arthritis Neuromuscular disorder ([facility]) num bness and tingling left leg related [...] 1.5 55.9 Started: 02/07/1971 Smokeless Tobacco: Never Tobacco Cessation:Ready to Q uit: Not Asked; Counseling Given: Not Answered Comments:Pt reports he is currently smoking 0.5ppd-02/13/19-KR Pt states he is only smoking 3-4 cigarettes a day now - 01/19/24 KN Alcohol Use Standard Drinks/Week Comments Yes 4 (1 standard drink = 0.6 oz pure alcohol) pt reports drinking 4 shots of [employer] [facility] Utilities Answer Date Recorded In the past 12 months has [employer], gas, oil, or water [employer] threatened to shut off services in your home? No 05/11/2024 Overall Financial Resource Strain (CARDIA) Answe r Date Recorded How hard is it for you to pa y for the very basics like food, housing, medical care, and heating? Not very hard 05/11/2024 PHQ-2 Answer Date Recorded PHQ-2 Total Score 0 05/11/2024 [facility] [place] of Occupat ional Health - Occupational Stress [...] things needed for daily living? No 01/12/2023 [facility] IP Transportation Answer D [...] Lange MD Medical Devices Implanted Type Area [employer]ish Network Installer Device Identifier Shelf Expiration Date Model / Serial / Lot Kit Lead Surgical Artisan 2 X 8 70cm - [id number] Implanted:Qty: 1 on 09/08/2016 by Cornelia De Leon MD at [facility] N/A: Spine Thoracic [employer]NEUROM[employer]ION 05/08/2018 [id number] / [id number] / [id number] 3 Kitgenerator Pulse Implantable Mri Montage Precision - [id number] Implanted:Qty: 1 on 09/08/2016 by Cornelia De Leon MD at [facility] N/A: Back [employer]NEUR[employer]A TION 08/04/2018 [id number] / [id number] / [id number] 3.5mm X 32mm Synergy Stent - [id number] Implanted:Qty: 1 on 07/31/2021 by Chaz Moya MD at [facility] N/A: LAD [employer]:CARDIAC RHYTHM MGMT [id number] 09/12/2021 [id number] / / [id number] 3.0mm X 20mm Synergy Stent - [id number] Implanted:Qty: 1 on 07/31/2021 by Chaz Moya MD at [facility] N/A: Ramus [employer]CARDIAC RHY[employer] MGMT [id number] 06/17/2022 [id number] / / [id number] Procedures Procedure Name Priority Date/Time Associated Diagnosis [...] 2 diabetes mellitus without complication, unspecified whether intermediate insulin use (HCC) ACUTE HEPATITIS PANEL Routine 04/10/2019 9:08 AM EST Type 2 diabetes mellitus without complication, without long-term current use of insulin (HCC) Essential hypertension Elevated liver enzymes Generalized abdominal pain HM DIABETES EYE EXAM Routine 09/18/2018 from Last 3 Months or Most Recently Relevant to Health Maintenance Results * (ABNORMAL) BASIC METABOLIC PANEL (05/13/2024 5:28 AM EDT) [facility] Sodium 140 136 - 145 mmol/L 05/13/2024 6:43 AM EDT [facility] Potassium 3.7 3.5 - 5.0 mmol/L 05/13/2024 6:43 AM EDT [facility] Chloride 108(H) 98 - 107 mmol/L 05/13/2024 6:43 AM EDT [facility] Total CO2 23 22 - 29 mmol/L 05/13/2024 6:43 AM EDT [facility] Anion Gap 9 7 - 16 mmol/L 05/13/2024 6:43 AM EDT [facility] Calcium 8.6(L) 8.8 - 10.4 mg/dL 05/13/2024 6:43 AM EDT [facility] Glucose Lvl 94 70 - 99 mg/dL 05/13[facility]24 [facility] BUN 8 8 - 23 mg/dL 05/13/2024 6:[facility] Creatinine 0.68 0.67 - 1.30 mg/dL 05/13/2024 6:[facility] eGFR (CKD-EPIcr 2020) 103 >=60 mL/min/1.7 3 m2 05/13/2024 6:43 AM EDT [facility] Comment:Estimated GFR was ca lculated using the CKD-EPIcr (2020) equation refit without race. The equation is recommended by the National Kidney Foundation - [place] [employer] of Nephrology Task Force. Blood VENOUS BLOOD / Unknown Venipuncture / Unknown 05/13/2024 5:28 AM EDT 05/13/2024 6:15 AM EDT us Mami Ulloa MD CHEMISTRY ORDERABLES Final Resul t [facility] [address] [place] [address] * CT ANGIOGRAM CHEST ABDOMEN W CONTRAST [...] - 5.6 % 04/10/2024 10:14 PM EST [employer] Est. Avg Glucose 160 mg/dL 04/10/2024 10:14 PM EST [facility] Blood VENOUS BLOOD / Unknown Venipuncture / Unknown 04/10/2024 1:37 PM EST 04/10/2024 1:37 PM EST Narrative [facility] [employer] [facility] - 04/10/2024 10:14 PM EST REFERENCE RANGE: Normal: 4.0-5.6% Pre-diabetes: 5.7-6.4% Provisional diagnosis of diabetes: >6.4% Hgb F>10% and anything which shortens red cell survival, such as hemolytic anemia, or unstable hemoglobin variants such as HbSS, HbSC, or HbCC, will lower the HbA1c value associated with a given level of glycemic control. us Mila Lange MD CHEMISTRY ORDERABLES Final Res ult [facility] [employer] [facility] [address] [facility] [place] [id number] [facility] [address] [place] [address] * (ABNORMAL) LIPID SCREEN (04/10/2024 1:37 PM EST) [facility] Cholesterol 165 <200 mg/dL 04/10/2024 9:07 PM EST [employer] Comment: < 200 Desirable 200 - 239 Borderline High >= 240 High Triglyceride 165(H) <150 mg/dL 04/10/2024 9:07 PM EST [employer] Comment: < 150 Normal 150 - 199 Borderline High 200 - 499 High >= 500 Very High HDL 41 >=40 mg/dL 04/10/2024 9:07 PM EST [employer] [facility] Comment: > 60 Optimal 40 - 60 Acceptable < 40 Low LDL Calculated 95 <100 mg/dL 04/10/2024 9:07 PM EST [employer] Comment: < 100 Optimal 100 - 129 Near or above optimal 130 - 159 Borderline High 160 - 189 High >= 190 Very High The National Institutes of Health (NIH) equation is used for all lipid panels that report calculated LDL (LDL-C). Non-HDL-C Calculated 124 <=129 mg/dL 04/10/2024 9:07 PM EST [employer] Comment: <130 Desirable 130-159 Above Desirable 160-189 Borderline High 190-219 High >= 220 Very High Fasting Specimen? Yes None 025 9:07 PM EST [facility] Blood VENOUS BLOOD / Unknown Venipuncture / Unknown 04/10/2024 1:37 PM EST 04/10/2024 1:37 PM EST us Mila Lange MD CHEMISTRY ORDERABLES Final Res ult Performing Organization Address [facility] de Phone Number PREFERRED LAB [facility], [address] , [place] [address] [facility] [address] [place] [address] * MICROALBUMIN/CREATININE RATIO URINE (01/19/2024 3:09 PM EST) [facility] Urine Albumin <12.0 mg/L 01/19/2024 8:46 PM EST PREFERRED [employer], [facility] Urine Creatinine 45.1 mg/dL 01/19/20 24 8:46 PM EST [facility], [facility] Ur Albumin/Creat Ratio 01/19/2024 8:46 PM EST [employer], [facility] Comment: Because the albumin level is below [...] URINE ORDERABLES Final Result Performing Organization Address [facility] de Phone Number [facility], [address] , [place] [address] * ACUTE HEPATITIS PANEL (04/10/2019 9:08 AM EST) [facility] Hep Bs Ag Non-Reacti ve Non-Reacti ve 04/10/2019 3:08 PM EST PREFERRED LAB [facility], [employer] Hep B Core IgM Non-Reacti ve Non-Reacti ve 04/10/2019 3:08 PM EST PREFERRED LAB [facility], [facility] Hep A IgM Non-Reacti ve Non-Reacti ve 04/10/2019 3:08 PM EST PREFERRED LAB [facility] Hep C Ab Non-Reacti ve Non-Reacti ve 04/10/2019 3:08 PM EST [employer] Blood VENOUS BLOOD / Unknown Venipuncture / Unknown 04/10/2019 9:08 AM EST 04/10/2019 9:08 AM EST us Mila Lange MD CHEMISTRY ORDERABLES Final Res ult PREFERRED [facility] [address] [facility] , [place] [address] * DIABETES EYE EXAM (09/18/2018) us Historical Provider HEALTH MAINTENANCE Final Res ult Performing Organization Address City/[facility] Co de Phone Number SEP OFFICE from Last 3 Months or Most Recently Relevant to Health Maintenance Insurance FRANNIE HARRINGTON MR FRANNIE HARRINGTON MR RFANNIE HARRINGTON MR Advance Directives For more information, please contact: [phone] * Full Code (Latest Code Status on [...] 5:12 AM 02/16/2024 11:29 PM Care Teams Sba Underwriter Relationship Specialty Start Date End Date Mila Lange MD [address] [place] [address] PCP - General Family Medicine 06/22/11
[2024-12-18 17:33] LABS: Hematocrit 49.1 % (42.0-52.0); Hemoglobin 16.5 g/dL (14.1-18.0); Immature Granulocytes % 0.3 %; Mean Corpuscular HGB Conc 33.6 g/dL (31.8-35.4); Mean Corpuscular Hemoglobin 29.6 pg (27.0-31.2); Mean Corpuscular Volume 88.0 fl (80-94); Nucleated Red Blood Cells % 0 %; Platelet Count 216 K/mm3 (142-424); Red Blood Count 5.58 M/mm3 (4.60-6.20); Red Cell Distribution Width-SD 41.6 fL; White Blood Count 12.8 K/mm3 (4.8-10.8)
[2024-12-18 18:32] LABS: Alanine Aminotransferase 37 U/L (12-78); Albumin Level 4.6 g/dl (3.5-5.0); Albumin/Globulin Ratio 1.5 (1.1-1.8); Alkaline Phosphatase 103 U/L (38-126); Anion Gap 14.5 mEq/L (5-15); Aspartate Amino Transferase 29 U/L (17-59); Bilirubin,Total 0.6 mg/dl (0.2-1.3); Blood Urea Nitrogen 16 mg/dl (9-20); Calcium 9.5 mg/dl (8.4-10.2); Carbon Dioxide 22 mmol/L (22.0-30.0); Chloride 101 mmol/L (98-107); Creatinine,Serum 0.80 mg/dl (0.66-1.25); Estimated Glomerular Filt Rate 97 ml/min (>60); GFR (African American) 117 ML/MIN (>60); Globulin 3.1 g/dL (1.3-3.2); Glucose 317 mg/dl (74-100); Potassium 4.5 mmoL/L (3.5-5.1); Sodium 133 mmol/L (136-145); Total Protein,Serum 7.7 g/dl (6.3-8.2)
[2024-12-18 18:37] LABS: C-Reactive Protein 5.3 mg/L (0-4)
[2024-12-18 18:42] LABS: Total Cells Counted 100
[2024-12-18 18:43] LABS: RBC Morphology Normal
== END 2024-12-18 23:59 | disposition home or self-care (01) ==
LOC: LAB.DROPOF 17:05
PROVIDERS: PCP Internal Medicine; Visit Provider Internal Medicine
DX: L03.90 Cellulitis, unspecified (principal)
CPT/HCPCS: 80053; 85007; 85025; 85651; 86140